=== PATIENT | female | born 1990 | race Caucasian/White ===

== ENCOUNTER 2023-11-09 21:51 | Outpatient (CLI) | payer OTHER, SELFPAY | END 2023-11-09 21:52 | disposition home or self-care (01) | PROVIDERS: Visit Provider Family Medicine | DX: R53.83 Other fatigue (principal); R53.1 Weakness | CPT/HCPCS: A0425; A0427 ==

== ENCOUNTER 2025-01-04 08:38 | Emergency (ER) | payer OTHER, SELFPAY ==
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
--- OUTSIDE RECORDS SUMMARY | 2025-01-04 08:40 | XMS_ITS | Clinical Summary ---
Author Organization [facility] Address [address] [place] [address] Care Team Providers Care School Bus Driver Name Role Phone Valerie Liu APRN, C.N.P. Primary Care Provide r Source Comments Patient records contain information from all sites at [facility]. For routine questions regarding patient records, call [phone] during business hours, M-F 8:00 AM - 5:00 PM Central Time. Record requests for emergency care only can be directed to [phone] at any time.[facility] Allergies Active Allergy Reactions Criticality Noted Date Comments Metoclopramide Other (see comments) 09/10/2022 Metoclopramide-Induc ed Acute Dystonic Reaction Metoclopramide Hcl Seizure 01/14/2023 Metoprolol Hypotension (Reselec t Reaction) 01/14/2023 Penicillins Other (see comments) 03/30/2009 Unknown reaction no longer allergic per patient after recent ER visit Medications * This document contains information received from the source organization and may not represent a complete record from that organization. alcohol swabs pads, medicatedIndication s:Diabetes Mellitus Gestational (HCC) Use as needed for diabetes control 1500 each 3 3 Active blood-glucose meter miscIndications:Jerri betes Mellitus Gestational (HCC) Test as directed for diabetes control. 1 each 3 Active blood glucose ctl high,nml,low solutionIndications :Diabetes Mellitus Gestational (HCC) Glucose control solution provides an easy way to ensure accurate blood glucose testing. 1 each 3 Active Accu-Chek Guide L1-L2 Ctrl Kay solution 3 Active blood sugar diagnostic stripsIndications:D iabetes Mellitus Gestational (HCC),Other Hypoglycemia 1 test 3 (three) times a day as needed (DM2 with reactive hypoglycemia ). 300 strip 3 3 Active LORazepam (ATIVAN) 0.5 mg tabletIndications:B ipolar II Disorder (HCC),Posttraumatic Stress Disorder Prolonged Take 1 tablet (0.5 mg total) by mouth 2 (two) times a day as needed for anxiety. 60 tablet 3 Active ondansetron ODT (ZOFRAN-ODT) 4 mg disintegrating tabletIndications:I njury Brain Traumatic Personal History Dissolve 1 tablet (4 mg total) in the mouth every 8 (eight) hours as needed for nausea or vomiting. 30 tablet 11 3 Active baclofen (LIORESAL) 10 mg tabletIndications:M yalgia Take 0.5-1 tablets (5-10 mg total) by mouth 3 (three) times a day. 40 tablet 4 Active amphetamine-dextroa mphetamine (ADDERALL XR) 30 mg 24 hr capsuleIndications: Attention Deficit Disorder Inattentive Take 1 capsule (30 mg total) by mouth 2 (two) times a day. 60 capsule 12/15/2023 4:21 PM CALL CENTER PROFESSIONAL 4 Active lamoTRIgine (LaMICtaL) 200 mg tabletIndications:B ipolar II Disorder (HCC),Posttraumatic Stress Disorder Prolonged take one tablet by mouth every day 30 tablet 2 4 Active sertraline (ZOLOFT) 50 mg tabletIndications:B ipolar II Disorder (HCC) take one tablet by mouth every day 90 tablet 3 4 Active amoxicillin (AMOXIL) 500 mg capsule Take 1 capsule (500 mg total) by mouth every 8 (eight) hours. 30 capsule 4 Active ondansetron ODT (Zofran-ODT) 4 mg disintegrating tablet Dissolve 1 tablet (4 mg total) in the mouth every 12 (twelve) hours. 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 It appears that she has experienced adverse effects from higher dose beta-raúl therapy. Recommended to decrease metoprolol XL 50 mg to 1 tablet once daily. Bipolar II Disorder 06/10/2017 Assessment & Plan (03/12/2022 3:56 PM CDT): This diagnosis was made many years ago while she was living in [place] apparently, I do not get the sense that she had any recent manic episodes. She may rather have major depressive disorder. She has been on sertraline 200 mg daily for many years. She is not on any other mood stabilizing agents. Today she voiced some suicidal thoughts, but said that she would never hurt herself, she has no plans, and she is taking care of her children. She should be seen in Behavioral Health as soon as possible, and medication adjustments should be considered. Pain Left Upper Quadrant 05/23/2013 Pain Low Back Unspecified Resolved Problems Problem Noted Date Diagnosed Date Resolved Date Loss Weight 12/24/2022 01/12/2023 Lipoma 04/07/2022 01/12/2023 Overview (04/07/2022): Added automatically from request for surgery [id number] Obesity Body Mass Index 30-39.9 Adult 06/26/2021 01/12/2023 Diarrhea 05/31/2021 01/12/2023 Overview (05/31/2021): Added automatically from request for surgery [id number] Encounter For Supervision Of Normal First Unspecified Trimester 01/31/2020 05/27/20 21 Other Immediate Hemorrhage 01/31/2020 01/31/2020 Appendicitis 11/03/2019 11/08/2019 Bite Cat Hand Open Initial Left 03/01/2019 06/06/2019 Abnormal Weight Gain 02/15/2018 021 Depression Major Recurrent Severe 07/23/2017 09/01/2017 Overview (08/22/2017): Depression Major Recurrent Severe Nicotine Dependence Cigarettes In Remission 07/23/2017 11/08/2019 Immunizations Immunization Administration Dates Next Due Anthrax 05/05/2013 H1N1 Nasal 12/20/2009 HepA Adult 09/23/2009,03/27/2009 IPV 05/04/2009 Influenza Split 06/29/2010,09/23/2009 MMR 03/27/2009 Smallpox 05/10/2013 Tdap 06/15/2020,04/22/2013,05/04/2009 TyVi (inj) 05/05/2013 Typhoid, Unspecified 05/04/2009 influenza trivalent vaccine (6 months and older)(PF) 06/28/2011 influenza vaccine quad (FLUZ ONE/FLUARIX) (6 months and older)(PF) 08/07/2020,11/03/2019 Family History Medical History Relation Name Comments Bipolar disorder Father Dad Depression Father Dad PTSD Father Dad History of substance abuse Mother ADD Sister Bio sister Crohn disease Sister Bio sister Anesthesia problems Neg Hx Relation Name Status Comments Father Dad Mother Sister Bio sister Social History Tobacco Use Types Packs/Day Years Used Date Smoking Tobacco: Former Cigarettes 1 12 Smokeless Tobacco: Never Tobacco Cessation:Counseling Given: Not Answered Alcohol Use Standard Drinks/Week Comments No 0 (1 standard drink = 0.6 oz pur e alcohol) Humiliation, Afraid, Rape, and Kick questionnair e Answer Date Recorded Within the last year, have y ou been afraid of your partner or ex-partner? No 03/02/2023 Within the last year, have y ou been humiliated or emotionally abused in other ways by your partner or ex-partner? Patient declined 03/02/2023 Within the last year, have y ou been kicked, hit, slapped, or otherwise physically hurt by your partner or ex-partner? Patient declined 03/02/2023 Within the last year, have y ou been raped or forced to have any kind of sexual activity by your partner or ex-partner? Patient declined 03/02/2023 Social Connection and Isolation Panel [NHANES] A nswer Date Recorded In a typical week, how many times do you talk on the phone with family, friends, or neighbors? Patient declined 03/02/2023 How often do you get togethe r with friends or relatives? Patient declined 03/02/2023 How often do you attend latter day or moravian serv ices? Patient declined 03/02/2023 Do you belong to any clubs o r organizations such as latter day groups, unions, fraternal or athletic groups, or school groups? No 03/02/2023 How often do you attend meet ings of the clubs or organizations you belong to? Patient declined 03/02/2023 Are you , , di vorced, , never , or living with a partner? Patient declined 03/02/2023 AUDIT-C Answer Date Recorded Q1: How often do you have a drink containing alc ohol? Patient declined 03/02/2023 Average Number of Drinks Not on file 023 Frequency of Binge Drinking Not on file 02/16 Overall Financial Resource Strain (CARDIA) Answe r Date Recorded How hard is it for you to pa y for the very basics like food, housing, medical care, and heating? Patient declined 03/02/2023 PHQ-2 Answer Date Recorded PHQ-2 Score 6 02/09/2023 [facility] - Occupational Stress Questionnaire Answer Date Recorded Do you feel stress - tense, restless, nervous, or anxious, or unable to sleep at night because your mind is troubled all the time - these days? Very much 03/02/2023 Exercise Vital Sign Answer Date Recorde d On average, how many days pe r week do you engage in moderate to strenuous exercise (like a brisk walk)? 3 days 03/02/2023 On average, how many minutes do you engage in exercise at this level? 0 min 03/02/2023 Hunger Vital Sign Answer Date Recorded Within the past 12 months, y ou worried that your food would run out before you got the money to buy more. Patient declined Within the past 12 months, t he food you bought just didn't last and you didn't have money to get more. Patient declined PRAPARE - Transportation Answer Date Re corded In the past 12 months, has l ack of transportation kept you from medical appointments or from getting medications? Patient declined 03/02/2023 In the past 12 months, has l ack of transportation kept you from meetings, work, or from getting things needed for daily living? Patient declined 03/02/2023 Housing Stability Vital Sign Answer Luigi e Recorded In the last 12 months, was t here a time when you were not able to pay the mortgage or rent on time? Patient refused 03/02/20 23 In the last 12 months, how many places have you lived? 1 03/02/2023 In the last 12 months, was t here a time when you did not have a steady place to sleep or slept in a alf (including now)? Patient refused 03/02/2023 Depression Answer Date Recor ded PHQ-9 Total Score (max 27) 26 02/09 Nutrition Answer Date Recorded On average, how many serving s of fruits and vegetables do you eat per day (serving size is equal to 1 cup or approximately the size of a tennis ball)? 2-3 03/02/2023 Dental Answer Date Recorded Dental: Regular Dentist No 11/06/19 22 Employment Answer Date Recorded Employment status N/A 03/02/2023 Education Answer Date Recorded What is the highest level of school you have completed or the highest degree you have received? Associate degree: occupational, technical, or vocational program 11/06/2021 Comments Unknown Sex and Gender Information Value Date Recorded Sex Assigned at Female 11/06/2021 12:30 PM CALL CENTER PROFESSIONAL Legal Sex Female 12:50 PM CDT Gender Identity Female 11/06/2021 12:30 PM CALL CENTER PROFESSIONAL Sexual Orientation Straight 11/06/2021 12 :30 PM CALL CENTER PROFESSIONAL Last Filed Vital Signs Vital Sign Reading Time Taken Comments Blood Pressure 123/84 08/21/2024 9:01 AM CALL CENTER PROFESSIONAL Pulse 75 08/21/2024 9:01 AM CALL CENTER PROFESSIONAL Temperature 36.4 C (97.5 F) 08/21/2024 9:01 AM CALL CENTER PROFESSIONAL Respiratory Rate 16 08/21/2024 9:01 AM CALL CENTER PROFESSIONAL Oxygen Saturation 99% 08/21/2024 9:01 AM CALL CENTER PROFESSIONAL Inhaled Oxygen Concentration - - Weight 96 kg (211 lb 10.3 oz) 08/21/2024 9:02 AM CALL CENTER PROFESSIONAL Height 172.7 cm (5' 8) 04/03/2024 2:27 AM CDT Body Mass Index 32.18 04/03/2024 2:27 AM CDT Plan of Treatment Health Maintenance Due Date Last Done Comments Hepatitis B Vaccines (1 of 3 - 19+ 3-dose series) 2007 Pneumococcal vaccine (0-49 years) (1 of 2 - PCV) 2007 IPV Vaccines (2 of 3 - Adult catch-up series) 06/01/2009 05/04/2009 Glucose Monitoring for Gestational Diabetes 10/23/2023 Cervical/Vaginal Cancer Screening 04/19/2024 04/19/2019, 04/19/2019 COVID-19 Vaccine ( - season) 2024 Influenza Vaccine (#1) 2024 , 11/03/2019, 06/28/2011, Additional history exists Depression Screening (Annual PHQ-2) 10/19/2024 Lipid (Cholesterol) Screening 03/12/2027 03/12/2022 DTaP,Tdap,and Td Vaccines (4 - Td or Tdap) 06/15/2030 06/15/2020, 04/22/2013, 05/04/2009 Hepatitis A Vaccines Completed 09/23/2009, 03/27/20 09 Orthopoxvirus Vaccine Completed 05/10/2013 HIV Screening Completed 01/31/2020 Hepatitis C Screening Completed 05/27/2021 HPV Vaccines Aged Out No longer eligi ble based on patient's age to complete this topic Procedures Procedure Name Priority Date/Time Associated Diagnosis Comments CHOLESTEROL, TOTAL, S Routine 03/12/2022 3:59 PM CDT Family History Coronary Artery Disease HCV AB SCRN W/REFLEX TO HCV PCR, S Routine 05/27/2021 10:16 AM CDT Pain Periumbilical Diarrhea HIV-1/-2 AG AND AB SCRN, PLASMA Routine 01/31/2020 3:48 PM CDT Encounter For Supervision Of Normal Unspecified Trimester PATHOLOGY LIQUOR GALLERY OPERATOR CYTOLOGY Routine 04/19/2019 12:00 AM CDT Pap Smear Examination from Last 3 Months or Most Recently Relevant to Health Maintenance Results * Cholesterol, Total (03/12/2022 3:59 PM CDT) Cholesterol, Total 142 mg/dL 03/12/2022 4:24 PM CDT RDW Comment: ----REFERENCE VALUE---- Desirable: < 200 Borderline high: 200 - 239 High: > or = 240 Blood (Blood, Venous) 03/12/2022 3:59 PM CDT 03/12/2022 4:03 PM CDT us Franky Carbone M.D. LAB BLOOD ADD-ON Final Resul t [facility] [address] [place] [address], [place] RDWG [facility] [place] [address] [place] [address] * HCV Ab Scrn w/Reflex to HCV PCR, Serum (05/27/2021 10:16 AM CDT) HCV Ab Screen, S Negative Negative 05/27/20 3:18 PM CDT ECLR Comment: Biotin has been identified by the retail clerk as a potential interfering substance. Higher concentrations of biotin may be found in multivitamins, hair/nail supplements, and workout supplements. If the result does not match clinical observations, repeat testing after patient refrains from the use of supplements for at least 12 hours. Blood (Blood, Venous) 05/27/2021 10:16 AM CDT 05/27/2021 2:38 PM CDT Narrative [facility] - 05/27/2021 3:18 PM CDT Specimen Information: Specimen ID: [id number] Specimen Type: Blood Specimen Collection Start Date: 05/27/2021 10:16 AM Specimen Received Date: 05/27/2021 2:38 PM Specimen ID: [id number] Specimen Type: Blood Specimen Collection Start Date: 05/27/2021 10:16 AM Specimen Received Date: 05/27/2021 2:38 PM Trey Poe M.D., Ph.D. LAB MICROBIOLOGY - BLOO D ORDERABLES Final Result [facility] [address] [place] [address], [place] ECLR [facility] [place] [address] * HIV-1/-2 Ag and Ab Scrn, Plasma (01/31/2020 3:48 PM CDT) HIV Ag/Ab Scrn, P Negative Negative 02/01/2020 12:25 PM CDT ECLR Comment: Negative result does not rule out HIV infection. If exposure to HIV infection occurred <14 days ago, contact the laboratory to request addition of HIV-1 RNA detection / quantification test. HIV-1 p24 Ag Scrn, P Negative Negative 02/01/2020 12:25 PM CDT ECLR Comment: Negative result does not rule out HIV infection. If exposure to HIV infection occurred <14 days ago, contact the laboratory to request addition of HIV-1 RNA detection / quantification test. HIV-1 Ab Scrn, P Negative Negative 02/01/2020 12:25 PM CDT ECLR Comment: Negative result does not rule out HIV infection. If exposure to HIV infection occurred <14 days ago, contact the laboratory to request addition of HIV-1 RNA detection / quantification test. HIV-2 Ab Scrn, P Negative Negative 02/01/2020 12:25 PM CDT ECLR Comment: Negative result does not rule out HIV infection. If exposure to HIV infection occurred <14 days ago, contact the laboratory to request addition of HIV-1 RNA detection / quantification test. Blood (Blood, Venous) 01/31/2020 3:48 PM CDT 01/31/2020 9:32 PM CDT us Skyler Shine APRNNJaya LAB MICROBIOLOGY - BLO OD ORDERABLES Final Result [facility] [address] [place] [address], [place] ECLR [facility] [place] [address] * Pathology LIQUOR GALLERY OPERATOR Cytology (04/19/2019 12:00 AM CDT) PATHOLOGY LIQUOR GALLERY OPERATOR CYTOLOGY Patient Name: AWAIS PADILLA MR#: [id number] Submitting Physician: KELTON MENCHACA NP [id number] Specimen #[id number] Performing Lab: [place] [address] CLINICAL HISTORY: Last menstrual period: Status: Pap Type: Routine Pap Clinical History/Status (Select all that apply): None Ancillary Testing: HPV with Genotyping, PCR, ThinPrep (order separately in [facility] [id number]) Source: ThinPrep cervical/endocervi eliane specimen [ThinPrep vial] Diagnosis Specimen Adequacy: Satisfactory for interpretation : endocervical or transformation zone component present. General Categorization: Negative for intraepithelial lesion or malignancy. Comment HPV with Genotyping, PCR, ThinPrep, testing performed by [facility] HPV High Risk type 16, PCR NEGATIVE HPV High Risk type 18, PCR NEGATIVE HPV other High Risk types, PCR NEGATIVE The PAP smear is not a diagnostic procedure and should not be used as the sole means to detect cervical cancer. It is only a screening procedure to aid in the detection of cervical cancer and its precursors. Both false-negative and false-positive results have been experienced. [facility] Thin Prep Vial (Cervix/Endocervi x) 04/19/2019 04/20/2019 Kelton Menchaca APRN C.N.PAleksandra, [facility] PAP COPAT H ORDERABLES Final Result VIANCA PADILLA [address] [place] [address], [place] from Last 3 Months or Most Recently Relevant to Health Maintenance Insurance [facility] TPL/MVA Advance Directives For more information, please contact: [phone] * Full Code (Latest Code Status on File) Date Activated Date Inactivated Comments 04/10/2022 1:43 PM 04/10/2022 7:24 PM Question Answer Comments Full Code: Discussed * Full Code Date Activated Date Inactivated Comments 07/03/2021 1:53 PM 07/03/2021 4:52 PM Question Answer Comments Full Code: Discussed * Full Code Date Activated Date Inactivated Comments 07/03/2021 12:26 PM 07/03/2021 1:53 PM Question Answer Comments Full Code: Discussed * Full Code Date Activated Date Inactivated Comments 11/04/2019 4:16 PM 11/05/2019 2:09 PM Question Answer Comments Full Code: Discussed * Full Code Date Activated Date Inactivated Comments 11/03/2019 11:09 PM 11/04/2019 4:16 PM Question Answer Comments Full Code: Discussed Care Teams School Bus Driver Relationship Specialty Start Date End Date Valerie Liu APRN, C.N.P. [address] [place] [address] PCP - General 03/04/24
--- OUTSIDE RECORDS SUMMARY | 2025-01-04 08:40 | XMS_ITS | Clinical Summary ---
Author Organization [facility] Address [address] [place] [id number] Care Team Providers Care Drapery Cutter Machine Name Role Phone None Primary Care Provider Unavailabl e Allergies No known active allergies Medications sertraline (ZOLOFT) 100 mg tabletIndicati ons:anxiety with depression Take 200 mg by mouth once daily. Indications: anxiousness associated with depression Active hydrOXYzine HCL (ATARAX) 50 mg tabletIndicati ons:anxiety Take 50 mg by mouth once daily. Indications: anxious Active famotidine (PEPCID) 20 mg tablet Take 20 mg by mouth 2 times daily. Active acetaminophen (TYLENOL EXTRA STRGTH) 500 mg tabletIndicati ons:Vaginal delivery (HC) Take 2 tablets by mouth every 6 hours. Max acetaminophen dose: 4000mg in 24 hrs. 60 tablet 1 0 Active glycerin-witch Pablito (TUCKS) pad Apply 1 Applicator topically to affected area(s) every hour while awake as needed. 0 0 Active ibuprofen (ADVIL; MOTRIN) 600 mg tabletIndicati ons:Vaginal delivery (HC) Take 1 tablet by mouth every 6 hours. Maximum of 3200 mg in 24 hours. 30 tablet 1 0 Active lanolin (LANSINOH) topicalIndicat ions:Vaginal delivery (HC) Apply peasized amount to entire nipple area after each feeding and leave on, no need to wash off before . 0 0 Active oxyCODONE (ROXICODONE) 5 mg immediate release tabletIndicati ons:Vaginal delivery (HC) Take 1 tablet by mouth every 4 hours if needed for Pain (For moderate to severe pain not controlled with ibuprofen and acetaminophen.) 10 tablet 0 Active docusate (COLACE) 100 mg capsuleIndicat ions:Vaginal delivery (HC) Take 1 capsule by mouth 2 times daily if needed for Constipation. 30 capsule 0 Active Active Problems Problem Noted Date Diagnosed Date Vaginal delivery 09/01/2020 Encounters Date Type Department Care Team Description 12/29/2024 Telephone [facility] [address] [facility] [address] [place] [address] Bree Hassan, PhD, LP 11/23/2024 Transcribe Orders [facility] [address] [place] [address] [place] MD from Last 3 Months Social History Tobacco Use Types Packs/Day Years Used Date Smoking Tobacco: Former Smokeless Tobacco: Former Alcohol Use Standard Drinks/Week Comments Not Currently 0 (1 standard drink = 0.6 oz pur e alcohol) Comments No Sex and Gender Information Value Date Recorded Sex Assigned at Not on file Legal Sex Female 8:20 PM PORT TRAFFIC MANAGER Gender Identity Not on file Sexual Orientation Not on file Obstetrics History Para Term AB IAB SAB Ectopic Multiple Livin g Live Births 7 4 4 3 3 4 4 Date Outcome GA Total Labor Labor/2nd/3rd Weight Sex Type Anes PTL Arlene A1 A5 Name Clin SAB SAB SAB 2013 Term Livin g 2014 Term Livin g 2016 Term Livin g 2019 Term 38w 4d 0h 07m 3.9 kg (8 lb 9.6 oz) M Vag Epidu ral,I V Meds N Livin g 8 9 SORENS EN,BB FIFI Pearson Complications:None Delivery Location:[facility]) Last Filed Vital Signs Vital Sign Reading Time Taken Comments Blood Pressure 130/82 09/03/2020 7:00 AM PORT TRAFFIC MANAGER Pulse 88 09/03/2020 7:00 AM PORT TRAFFIC MANAGER Temperature 36.8 C (98.2 F) 09/03/2020 7:00 AM PORT TRAFFIC MANAGER Respiratory Rate 18 09/03/2020 7:00 AM PORT TRAFFIC MANAGER Oxygen Saturation 96% 09/01/2020 3:49 AM PORT TRAFFIC MANAGER Inhaled Oxygen Concentration - - Weight 121.6 kg (268 lb) 08/31/2020 10:13 PM PORT TRAFFIC MANAGER Height 172.7 cm (5' 8) 08/31/2020 10:13 PM PORT TRAFFIC MANAGER Body Mass Index 40.75 08/31/2020 10:13 PM PORT TRAFFIC MANAGER Plan of Treatment Upcoming Encounters Date Type Department Care Team (Late st Contact Info) Description 05/22/2025 12:30 PM CDT Office Visit [facility] [address] [place] [address] Bree Hassan, PhD, LP [address] [place] [address] Health Maintenance Due Date Last Done Comments Tdap 1999 Depression screening for age 12+ 2000 HIV for age 15-65 2003 BMI (ht and wt on same day) for age 18+ 2006 Hepatitis C screening for ag e 18-79 2006 Tetanus booster 2008 Pap test for age 21-65 2009 COVID-19 vaccine series ( - 2023-25 season) 2024 Influenza Vaccine (#1) 2024 Pneumococcal series for age 6-49 Aged Out No longer eligible based on patient's age to complete this topic Insurance MEDICAID [employer] Advance Directives * Full Code (Latest Code Status on File) Date Activated Date Inactivated Comments 08/31/2020 9:53 PM 09/03/2020 3:09 PM Question Answer Comments Code Status Discussion: Discussed Care Teams Drapery Cutter Machine Relationship Specialty Start Date End Date None . PCP - General 12/05/24
--- OUTSIDE RECORDS SUMMARY | 2025-01-04 08:41 | XMS_ITS | Clinical Summary ---
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 Role Phone None, Pcp Primary Care Provider Unavailabl e Allergies Active Allergy Reactions Criticality Noted Date Comments Metoclopramide 08/01/2024 Metoprolol 08/01/2024 Medications ibuprofen (ADVIL) 600 MG tablet Take 1 tablet (600 mg total) by mouth every 6 hours as needed Active Social History Tobacco Use Types Packs/Day Years Used Date Smoking Tobacco: Never Assessed Comments Unknown Sex and Gender Information Value Date Recorded Sex Assigned at Not on file Legal Sex Female 9:18 AM CDT Gender Identity Not on file Sexual Orientation Not on file Last Filed Vital Signs Vital Sign Reading Time Taken Comments Blood Pressure 110/70 08/01/2024 12:48 PM CDT Pulse 70 08/01/2024 12:48 PM CDT Temperature 36.9 C (98.5 F) 08/01/2024 12:48 PM CDT Respiratory Rate - - Oxygen Saturation - - Inhaled Oxygen Concentration - - Weight 91.1 kg (200 lb 14.4 oz) 024 12:48 PM CDT Height - - Body Mass Index - - Plan of Treatment Health Maintenance Due Date Last Done Comments Pap Smear 04/19/2022 04/19/2019, 04/19/2019 COVID-19 Vaccine ( season) 2024 Influenza Vaccine (#1) 2024 0, 11/03/2019, 06/28/2011, Additional history exists DTaP,Tdap,and Td Vaccines (4 - Td or Tdap) 06/15/2030 06/15/2020, 04/22/2013, 05/04/2009 HPV Vaccines Aged Out No longer eligi ble based on patient's age to complete this topic Pneumococcal Vaccine: Pediatrics (0 to 5 Years) and At-Risk Patients (6 to 49 Years) Aged Out No longer eligible based on patient's age to complete this topic Insurance [facility] [employer] Care Teams Stem Roller Operator Relationship Specialty Start Date End Date None, Pcp [address] [place], [place] [address] [place] [address] 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
[2025-01-04 08:57] VITALS: BP 138/91; PULSE 90; RESP 18; TEMP 37.2; O2SAT 97; BMI 33.7
--- NOTE | 2025-01-04 09:20 | ED.GENADULT ---
HPI - General Adult General Chief complaint: Back Injury/Pain Stated complaint: Flu symptoms, back pain Time Seen by Provider: 01/04/25 08:47 History of Present Illness HPI narrative: Patient is a 34 year white female disabled who is here with her caregiver. Patient has had a couple head injuries. Although she appears mentally status intact. She reports she has had a cough the last few days and cough so hard that she threw up once and she thinks she hurt her back. Pain on the left mid low back left posterior superior iliac spine area. Does not really describe radicular symptoms. Has had no loss control of bowel or bladder. The patient has had no fevers chills perineal numbness. Patient was diagnosed with some type of arachnoid cyst, although she does not know exactly what level. Patient has been on gabapentin. Did well with PT and OT for her spine issues. Related Data Home Medications ?Medication ?Instructions ?Recorded ?Confirmed gabapentin 400 mg tablet 400 mg PO TID 01/04/25 01/04/25 Previous Rx's ?Medication ?Instructions ?Recorded benzonatate 100 mg capsule 100 mg PO TID PRN cough #14 caps 01/04/25 cyclobenzaprine 10 mg tablet 10 mg PO TID PRN muscle spasm #14 01/04/25 tabs ketorolac 10 mg tablet 10 mg PO Q8H PRN pain 3 days #10 01/04/25 tabs prednisone 20 mg tablet 20 mg PO BID 5 days #10 tabs 01/04/25 Allergies Allergy/AdvReac Type Severity Reaction Status Date / Time No Known Drug Allergies Allergy Verified 01/04/25 09:04 Review of Systems Status of ROS: Reports: 6 or more systems reviewed and unremarkable except as noted in History and below Exam Narrative: Exam Narrative: Objective: Patient's temp is 99? vital signs otherwise unremarkable in general she is in no marked distress but does feel uncomfortable when she moves with her low back She is able to sit up, her lower extremities show normal strength sensation, negative straight leg raise bilaterally. She has mildly palpable paravertebral muscle tenderness in the low back. No redness or warmth erythema. Const: Vital Signs, click to edit/add: Vital Signs - 24 hr 01/04/25 08:57 01/04/25 11:07 01/04/25 11:15 Temperature 99.0 F Pulse Rate 87 85 Pulse Rate [Right Pulse Oximeter] 90 Respiratory Rate 18 Blood Pressure [Ri t Upper Arm] 138/91 H Pulse Oximetry 97 96 97 Oxygen Delivery Me thod Room Air Course Vital Signs Vital signs: Initial Vital Signs Temperature 99.0 F 01/04/25 08:57 Temperature Source Temporal Artery Scan 01/04/25 08:57 Pulse Rate 90 01/04/25 08:57 Pulse Rhythm Regular 01/04/25 08:57 Pulse Strength 3+ Normal 01/04/25 08:57 Respiratory Rate 18 01/04/25 08:57 Blood Pressure 138/91 H 01/04/25 08:57 Blood Pressure Mean 106 H 01/04/25 08:57 Blood Pressure Position Sitting 01/04/25 08:57 Pulse Oximetry 97 01/04/25 08:57 Oxygen Delivery Method Room Air 01/04/25 08:57 Vital Signs Temperature 99.0 F 01/04/25 08:57 Pulse Rate 90 01/04/25 08:57 Respiratory Rate 18 01/04/25 08:57 Blood Pressure 138/91 H 01/04/25 08:57 Pulse Oximetry 97 01/04/25 08:57 Oxygen Delivery Method Room Air 01/04/25 08:57 Temperature 99.0 F 01/04/25 08:57 Pulse Rate 85 01/04/25 11:15 Respiratory Rate 18 01/04/25 08:57 Blood Pressure 138/91 H 01/04/25 08:57 Pulse Oximetry 97 01/04/25 11:15 Oxygen Delivery Method Room Air 01/04/25 08:57 Medications Administered Medications: Discontinued Medications Generic Name Dose Route Start Last Admin Trade Name Koffiq PRN Reason Stop Dose Admin Sodium Chloride 500 mls @ 500 mls/hr 01/04/25 08:47 01/04/25 10:47 0.9 % Sodium Chloride 500 Ml IV 01/04/25 09:46 Infused .Q1H ONE Infusion Ketorolac Tromethamine 30 mg 01/04/25 09:17 01/04/25 10:01 Ketorolac 30 Mg/Ml Inj IVP 01/04/25 09:18 30 mg ONCE ONE Administration Lorazepam 0.5 mg 01/04/25 09:17 01/04/25 09:46 Lorazepam 2 Mg/Ml Inj IVP 01/04/25 09:18 Not Given ONCE ONE Lorazepam 1 mg 01/04/25 09:17 01/04/25 10:02 Lorazepam 2 Mg/Ml Inj IVP 01/04/25 09:18 1 mg ONCE ONE Administration Methylprednisolone Sodium Succinate 125 mg 01/04/25 09:17 01/04/25 10:01 Methylprednisolone Sod Succ 62.5 Mg/Ml (125) IVP 01/04/25 09:18 125 mg ONCE ONE Administration Morphine Sulfate 4 mg 01/04/25 10:45 01/04/25 10:58 Morphine 4 Mg/Ml Inj IVP 01/04/25 10:46 4 mg ONCE ONE Administration Medical Decision Making MDM Narrative Medical decision making narrative: [age] year white female with history of couple of head injuries on which she is disabled, with low back pain that is chronic, acute exacerbation likely due to the cough. Likely musculoskeletal in the low back. Patient does not really demonstrate radicular symptoms or cauda equinus syndrome symptoms. At this point I think it be reasonable to give her IV fluid, give her pain control in the form of Toradol 30 mg IV and Ativan 1 mg IM mg IV, will also give her Solu-Medrol 125 IV. Will also for completeness check a urinalysis and lab studies, because of her cough will check viral studies. Disposition pending findings above. Patient may benefit from with some anti-inflammatory medicine and steroids at home. Will need follow up with regular doctor next few days. Will see how she responds here. Addendum 11:14 a.m. the patient got an additional morphine 4 mg IV, she feels little bit better with her back. She is positive for influenza B. Recommend observation fluids medicines as prescribed. Follow up with regular doctor in a couple of days, light activity recommended. She was comfortable this plan. Will also fax in some [employer] for her. Lab Data Labs: Lab Results 01/04/25 01/04/25 Range/Units 09:28 09:35 WBC 4.10 L (4.50-11.00) K/uL RBC 4.77 (4.00-5.20) m/uL Hgb 14.7 (12.0-16.0) gm/dL Hct 43.0 (33.0-51.0) % MCV 90 (80-100) fL MCH 31 (26-34) pg MCHC 34 (32-36) gm/dL RDW Coeff of Danyel 11.8 (11.5-15.5) % Plt Count 145 (140-440) K/uL Neut % (Auto) 74.5 H (42.0-72.0) % Lymph % (Auto) 15.6 L (20-44) % Braxton % (Auto) 9.5 (0.0-11.0) % Eos % (Auto) 0.0 (0.0-7.0) % Baso % (Auto) 0.2 (0.0-3.0) % Neut # (Auto) 3.10 (1.7-7.0) K/uL Lymph # (Auto) 0.60 L (0.90-2.90) K/uL Braxton # (Auto) 0.40 (0.00-0.90) K/UL Eos # (Auto) 0.00 (0.00-0.50) K/uL Baso # (Auto) 0.00 (0.00-0.30) K/uL Abs Immat Gran (auto) 0.00 (0.00-0.30) K/uL Imm/Tot Granulo (auto) 0.2 % Sodium 137 (135-149) mmol/L Potassium 3.4 L (3.6-5.1) mmol/L Chloride 101 (96-114) mmol/L Carbon Dioxide 27 (20-32) mmol/L Anion Gap 9 (7-15) mEq/L BUN 9 (5-24) mg/dL Creatinine 0.8 (0.5-1.5) mg/dL Estimated Creat Clear 94.54 Estimated GFR 98 ml/min Glucose 97 (60-115) mg/dL Calcium 8.7 (8.4-10.6) mg/dL C-Reactive Protein 0.7 (0.5-1.0) mg/dL Urine Color Yellow (Yellow) Urine Appearance Clear (Clear) Urine pH 6.5 (5.0-8.5) Ur Specific [place] 1.010 (1.000-1.030) Urine Protein Negative (Negative) Urine Glucose (UA) Negative (Negative) Urine Ketones Negative (Negative) Urine Blood Negative (Negative) Urine Nitrite Negative (Negative) Urine Bilirubin Negative (Negative) Urine Urobilinogen 0.2 (0.2-1.0) Ur Leukocyte Esterase Negative (Negative) Urine RBC 0-2 (0-2) Urine WBC 0-2 (0-5) Ur Squamous Epith Cells Moderate A (None-Few) Urine Bacteria Moderate A (None) SARS-CoV-2 (PCR) Negative SARS-CoV-2 (Negative) Influenza Type A (PCR) Negative PCR FLU A (Negative) Influenza Type B (PCR) POSITIVE PCR FLU B A (Negative) RSV (PCR) Negative PCR RSV (Negative) Discharge Plan Discharge Clinical Impression: Acute cough, Chronic low back pain, Influenza B Patient Disposition: Home w/ Parent or Adult Condition: Stable Additional Instructions: Light activity, ice to the back as tolerated, medications as prescribed. Follow up with regular doctor the next 48 hours, return to ED as needed. Activity Level: Light activity Discharge Diet: Regular Prescriptions: New ketorolac 10 mg tablet 10 mg PO Q8H PRN (Reason: pain) 3 Days Qty: 10 0RF cyclobenzaprine 10 mg tablet 10 mg PO TID PRN (Reason: muscle spasm) Qty: 14 0RF prednisone 20 mg tablet 20 mg PO BID 5 Days Qty: 10 0RF benzonatate 100 mg capsule 100 mg PO TID PRN (Reason: cough) Qty: 14 0RF No Action gabapentin 400 mg tablet 400 mg PO TID Follow Up/Referrals: Provider,Not a Local [Primary Care Provider] - Stand Alone Forms: [facility] [employer] Info Instructions
[2025-01-04 09:38] LABS: Appearance Urine Clear (Clear); Bilirubin Urine Negative (Negative); Blood Urine Negative (Negative); Color Urine Yellow (Yellow); Glucose Urine Negative (Negative); Ketones Urine Negative (Negative); Leukocyte Esterase Urine Negative (Negative); Nitrite Urine Negative (Negative); Protein Urine Negative (Negative); Urobilinogen Urine 0.2 (0.2-1.0); pH Urine 6.5 (5.0-8.5)
[2025-01-04 09:52] LABS: Basophils Percent Auto 0.2 % (0.0-3.0); Hemoglobin* 14.7 gm/dL (12.0-16.0); Immature Granulocytes Pct Auto 0.2 %; Lymphocytes Percent Auto 15.6 % (20-44); Mean Corpuscular HGB Conc 34 gm/dL (32-36); Mean Corpuscular Hemoglobin 31 pg (26-34); Mean Corpuscular Volume 90 fL (80-100); Monocytes Percent Auto 9.5 % (0.0-11.0); Neutrophils Percent Auto 74.5 % (42.0-72.0); Platelet Count* 145 K/uL (140-440); RDW Coefficient of Variation % 11.8 % (11.5-15.5); Red Blood Count 4.77 m/uL (4.00-5.20)
[2025-01-04 09:54] LABS: Bacteria Urine Moderate; RBC Urine 0-2 (0-2); Squamous Epithelial Cell Urine Moderate (None-Few); WBC Urine 0-2 (0-5)
[2025-01-04] MEDS: 0.9 % SODIUM CHLORIDE 500 ML 500 ML IV (10:01)
[2025-01-04] MEDS: KETOROLAC 30 MG/ML inj IVP (10:01)
[2025-01-04] MEDS: METHYLPREDNISOLONE SOD SUCC 62.5 MG/ML (125) 125 MG IVP (10:01)
[2025-01-04] MEDS: LORazepam 2 MG/ML inj 1 MG IVP (10:02)
[2025-01-04 10:05] LABS: Chloride* 101 mmol/L (96-114); Potassium* 3.4 mmol/L (3.6-5.1); Slide Review Reflex No; Sodium* 137 mmol/L (135-149)
[2025-01-04 10:09] LABS: Anion Gap 9 mEq/L (7-15); Blood Urea Nitrogen* 9 mg/dL (5-24); Calcium* 8.7 mg/dL (8.4-10.6); Carbon Dioxide* 27 mmol/L (20-32); Creatinine* 0.8 mg/dL (0.5-1.5); Est. Creatinine Clearance* 94.54; Estimated Glomerular Filt Rate 98 ml/min; Glucose* 97 mg/dL (60-115)
[2025-01-04 10:11] LABS: C Reactive Protein* 0.7 mg/dL (0.5-1.0)
[2025-01-04] MEDS: MORPHINE 4 MG/ML INJ IVP (10:58)
[2025-01-04 10:59] LABS: PCR FLU A Negative PCR FLU A (Negative); PCR FLU B POSITIVE PCR FLU B (Negative); PCR RSV Negative PCR RSV (Negative); SARS PCR* Negative SARS-CoV-2 (Negative)
[2025-01-04 11:07] VITALS: PULSE 87; O2SAT 96
[2025-01-04 11:15] VITALS: PULSE 85; O2SAT 97
== END 2025-01-04 11:33 | disposition home or self-care (01) ==
PROVIDERS: Emergency Provider Family Medicine
DX: J10.1 Influenza due to other identified influenza virus with other respiratory manifestations (principal); R05.1 Acute cough; M54.50 Low back pain, unspecified
CPT/HCPCS: 36415; 80048; 81001; 85025; 86140; 87086; 87631; 94761; 96374; 96375; 99284; J1885; J2060; J2270; J2919; J7030

== ENCOUNTER 2025-01-11 08:36 | Emergency (ER) | payer OTHER, SELFPAY ==
[2025-01-11 08:39] VITALS: BP 128/92; PULSE 90; RESP 18; TEMP 36.6; O2SAT 94
--- NOTE | 2025-01-11 09:04 | ED.GENADULT ---
HPI - General Adult General Chief complaint: Cough Stated complaint: Shortness of breath, chest/back pain Time Seen by Provider: 01/11/25 08:42 History of Present Illness HPI narrative: Patient is a 34-year-old white female who is [facility] connected who has got some disability from head injury. She had influenza B last week. She feels like she has not ate or drank much over the last few days. She has had a cough that is been a grayish yellow sputum. She had some a little bit of blood tinged sputum couple days ago and that is gone. She has complaints of shortness of breath with activity but her O2 sat is 94% here. Does not have rigors or chills. Has not had any cheek and tear chest pain. She feels generally weak however as she has been sick for the week. She went to the [place] had a ruptured eardrum was put on steroid drops. Related Data Home Medications ?Medication ?Instructions ?Recorded ?Confirmed gabapentin 400 mg tablet 400 mg PO TID 01/04/25 01/11/25 Previous Rx's ?Medication ?Instructions ?Recorded benzonatate 100 mg capsule 100 mg PO TID PRN cough #14 caps 01/04/25 cyclobenzaprine 10 mg tablet 10 mg PO TID PRN muscle spasm #14 01/04/25 tabs azithromycin 250 mg tablet See Rx Instructions PO .COMPLEX #6 01/11/25 (Zithromax Z-Ronnie) tabs Allergies Allergy/AdvReac Type Severity Reaction Status Date / Time No Known Drug Allergies Allergy Verified 01/11/25 09:48 Review of Systems Status of ROS: Reports: 6 or more systems reviewed and unremarkable except as noted in History and below Exam Narrative: Exam Narrative: Objective: In general patient is no apparent distress noncyanotic talks in even unlabored sentences O2 sat is 94% on room air Afebrile Alert orient x3 no scleral icterus neck is supple chest clear no rales or wheezing heart rhythm without murmur abdomen shows elevated BMI nontender Extremities are no edema neurologic nonfocal. Const: Vital Signs, click to edit/add: Vital Signs - 24 hr 01/11/25 08:39 01/11/25 10:08 Temperature 97.9 F Pulse Rate [Pulse Oximeter] 90 Respiratory Rate 18 Blood Pressure [Ri ght Upper Arm] 128/92 H 129/85 Pulse Oximetry 94 Oxygen Delivery Me thod Room Air Course Vital Signs Vital signs: Initial Vital Signs Temperature 97.9 F 01/11/25 08:39 Temperature Source Temporal Artery Scan 01/11/25 08:39 Pulse Rate 90 01/11/25 08:39 Respiratory Rate 18 01/11/25 08:39 Blood Pressure 128/92 H 01/11/25 08:39 Blood Pressure Mean 104 01/11/25 08:39 Blood Pressure Position Sitting 01/11/25 08:39 Pulse Oximetry 94 01/11/25 08:39 Oxygen Delivery Method Room Air 01/11/25 08:39 Vital Signs Temperature 97.9 F 01/11/25 08:39 Pulse Rate 90 01/11/25 08:39 Respiratory Rate 18 01/11/25 08:39 Blood Pressure 128/92 H 01/11/25 08:39 Pulse Oximetry 94 01/11/25 08:39 Oxygen Delivery Method Room Air 01/11/25 08:39 Temperature 97.9 F 01/11/25 08:39 Pulse Rate 90 01/11/25 08:39 Respiratory Rate 18 01/11/25 08:39 Blood Pressure 129/85 01/11/25 10:08 Pulse Oximetry 94 01/11/25 08:39 Oxygen Delivery Method Room Air 01/11/25 08:39 Medications Administered Medications: Discontinued Medications Generic Name Dose Route Start Last Admin Trade Name Freq PRN Reason Stop Dose Admin Sodium Chloride 1,000 mls @ 6,000 mls/hr 01/11/25 09:15 01/11/25 10:05 0.9 % Sodium Chloride 1000 Ml IV 01/11/25 09:24 Infused .Q10M MOLLY Infusion Ceftriaxone Sodium 1 gm/ 100 mls @ 200 mls/hr 01/11/25 10:01 01/11/25 10:06 Sodium Chloride IVPB 01/11/25 10:02 200 mls/hr ONCE ONE Administration Medical Decision Making [facility] Narrative Medical decision making narrative: [age] year white female disabled with history of head injury with productive cough following influenza B. She had some blood-tinged sputum as well. I think given her situation a CT scan of her chest with IV contrast to rule out PE rule out pneumonia would be appropriate. Will check a test, laboratory studies, IV fluid be given. Disposition pending findings above. Addendum 10:03 a.m. patient has slightly elevated CRP, has CT scan evidence of no pulmonary embolism but lower lobe pneumonia. Patient will be started on Rocephin 1 g IV and will be given Zithromax in a Z-Ronnie. Light activity recommended, diet as tolerated. Follow up with regular doctor in the next 2-3 days. She she was comfortable this will follow up as directed. Her laboratory studies look reassuring, with exception of calcium just slightly low and potassium on the low normal range as well. Lab Data Labs: Lab Results 01/11/25 01/11/25 Range/Units 09:15 10:16 WBC 6.21 (4.50-11.00) K/uL RBC 4.19 (4.00-5.20) m/uL Hgb 12.8 (12.0-16.0) gm/dL Hct 36.8 (33.0-51.0) % MCV 88 (80-100) fL MCH 31 (26-34) pg MCHC 35 (32-36) gm/dL RDW Coeff of Danyel 11.4 L (11.5-15.5) % Plt Count 146 (140-440) K/uL Neut % (Auto) 70.3 (42.0-72.0) % Lymph % (Auto) 20.8 (20-44) % Cook % (Auto) 7.7 (0.0-11.0) % Eos % (Auto) 0.5 (0.0-7.0) % Baso % (Auto) 0.2 (0.0-3.0) % Neut # (Auto) 4.37 (1.7-7.0) K/uL Lymph # (Auto) 1.29 (0.90-2.90) K/uL Cook # (Auto) 0.50 (0.00-0.90) K/UL Eos # (Auto) 0.03 (0.00-0.50) K/uL Baso # (Auto) 0.01 (0.00-0.30) K/uL Abs Immat Gran (auto) 0.03 (0.00-0.30) K/uL Imm/Tot Granulo (auto) 0.5 % Sodium 138 (135-149) mmol/L Potassium 3.3 L (3.6-5.1) mmol/L Chloride 101 (96-114) mmol/L Carbon Dioxide 30 (20-32) mmol/L Anion Gap 7 (7-15) mEq/L BUN 6 (5-24) mg/dL Creatinine 0.6 (0.5-1.5) mg/dL Estimated GFR 119 ml/min Glucose 112 (60-115) mg/dL Calcium 7.9 L (8.4-10.6) mg/dL C-Reactive Protein 4.1 H (0.5-1.0) mg/dL HCG, Qual Negative (Negative) Discharge Plan Discharge Clinical Impression: Acute cough, Influenza B, Pneumonia Patient Disposition: Home w/ Parent or Adult Condition: Stable Additional Instructions: Rest, fluids, will take a Zithromax pack start that today. Follow-up with the regular doctor next few days. Eat as tolerated. Activity Level: Light activity Discharge Diet: Regular Prescriptions: New azithromycin [Zithromax Z-Ronnie] 250 mg tablet See Rx Instructions .ROUTE .COMPLEX Qty: 6 0RF Rx Instructions: For 250 mg dose pack: take 500 mg today (day 1), then 250 mg for 4 days (days 2-5) No Action gabapentin 400 mg tablet 400 mg PO TID cyclobenzaprine 10 mg tablet 10 mg PO TID PRN (Reason: muscle spasm) Qty: 14 0RF benzonatate 100 mg capsule 100 mg PO TID PRN (Reason: cough) Qty: 14 0RF Follow Up/Referrals: Provider,Not a Local [Primary Care Provider] - Stand Alone Forms: MyHealth Info Instructions
--- NOTE | 2025-01-11 09:07 | CRLHL7_ITS ---
For Patients: As a result of the Century Cures Act, medical imaging exams and procedure reports are released immediately into your electronic medical record. You may view this report before your referring provider. If you have questions, please contact your health care provider. INDICATION: Shortness of breath. Hemoptysis. COMPARISON: None available. TECHNIQUE: CT pulmonary angiography with 95 cc of Isovue 370 intravenous contrast. Reconstructed multiplanar MIP series were done. Please note that all CT scans at this facility use dose modulation, iterative reconstruction, and/or weight-based dosing when appropriate to reduce radiation dose to as low as reasonably achievable. FINDINGS: THORAX Pulmonary Arterial Vasculature: Opacification of the pulmonary arterial tree is adequate for assessment of pulmonary embolism. No intraluminal pulmonary arterial filling defect is identified to indicate a pulmonary embolism. Visualized Lower Neck: No lower cervical adenopathy. Lungs: Dependent multisegmental (posterior and lateral segment) right lower lobe consolidation consistent with pneumonia. Differential diagnostic considerations include aspiration pneumonitis given the distribution of these findings. Note is otherwise made of bilateral lower lobe dependent hypoventilatory changes. Pleura: No pleural effusion. No pneumothorax. Mediastinum: Thoracic aorta and pulmonary trunk are normal in caliber. Heart and pericardium are without significant findings. Trachea and esophagus are normal in appearance. No mediastinal lymphadenopathy. ABDOMEN Visualized Upper Abdomen: No significant findings. SKELETON AND BODY WALL No acute or significant incidental findings. IMPRESSION: 1. No evidence of pulmonary embolism. 2. Dependent multisegmental (posterior and lateral segment) right lower lobe consolidation consistent with pneumonia. Differential diagnostic considerations include aspiration pneumonitis given the distribution of these findings. Please note that all CT scans at this facility use dose modulation, iterative reconstruction, and/or weight-based dosing when appropriate to reduce radiation dose to as low as reasonably achievable. Dictated by Carlin Garcia MD @ 01/11/2025 9:58:57 AM (Electronically Signed)
[2025-01-11] MEDS: 0.9 % SODIUM CHLORIDE 1000 ml 1,000 ML 6000 ML IV (09:18)
[2025-01-11 09:19] LABS: Basophils Absolute Auto 0.01 K/uL (0.00-0.30); Basophils Percent Auto 0.2 % (0.0-3.0); Eosinophils Absolute Auto 0.03 K/uL (0.00-0.50); Eosinophils Percent Auto 0.5 % (0.0-7.0); Hematocrit 36.8 % (33.0-51.0); Hemoglobin* 12.8 gm/dL (12.0-16.0); Immature Granulocytes Abs Auto 0.03 K/uL (0.00-0.30); Immature Granulocytes Pct Auto 0.5 %; Lymphocytes Absolute Auto 1.29 K/uL (0.90-2.90); Lymphocytes Percent Auto 20.8 % (20-44); Mean Corpuscular HGB Conc 35 gm/dL (32-36); Mean Corpuscular Hemoglobin 31 pg (26-34); Mean Corpuscular Volume 88 fL (80-100); Monocytes Percent Auto 7.7 % (0.0-11.0); Neutrophils Absolute Auto 4.37 K/uL (1.7-7.0); Neutrophils Percent Auto 70.3 % (42.0-72.0); Platelet Count* 146 K/uL (140-440); RDW Coefficient of Variation % 11.4 % (11.5-15.5); Red Blood Count 4.19 m/uL (4.00-5.20); White Blood Count* 6.21 K/uL (4.50-11.00)
[2025-01-11 09:21] LABS: Slide Review Reflex No
[2025-01-11 09:32] LABS: Chloride* 101 mmol/L (96-114); Potassium* 3.3 mmol/L (3.6-5.1); Sodium* 138 mmol/L (135-149)
[2025-01-11 09:36] LABS: Anion Gap 7 mEq/L (7-15); Blood Urea Nitrogen* 6 mg/dL (5-24); Calcium* 7.9 mg/dL (8.4-10.6); Carbon Dioxide* 30 mmol/L (20-32); Creatinine* 0.6 mg/dL (0.5-1.5); Estimated Glomerular Filt Rate 119 ml/min; Glucose* 112 mg/dL (60-115)
[2025-01-11 09:38] LABS: C Reactive Protein* 4.1 mg/dL (0.5-1.0)
[2025-01-11] MEDS: cefTRIAXone 1 GM in 0.9 % SODIUM CHLORIDE Mini-bag 100 ML IVPB (10:06)
--- OUTSIDE RECORDS SUMMARY | 2025-01-11 10:06 | XMS_ITS | Encounter Summary ---
Author Name [facility] [place] [facility] [place] Address [address] [place] [address] Care Team Providers Care Attending Radiologist Name Role Phone LONA CINDY Primary Care Provider Unavail able Selected Encounter This section includes the information on record at [place] for the Encounter. Date/Time Encounter Type Encounter Description Reason Provider Source Dec 28, 2024 01:00 PM SELF CARE MNGMENT TRAINING OCCUPATIONAL THERAPY ICD-10-CM G89.29 Other chronic pain CAMILLE HERNANDEZ [place] Encounter Template Text not used by [place] Assessments - Encounter Diagnoses This section includes the primary and secondary diagnoses documented for the Encounter. Date/Time Primary/Secondary Diagnosis Diagnosis Name Provider Source Dec 28, 2024 03:59 PM PRIMARY Other chronic pain CAMILLE HERNANDEZ [facility] Plan of Treatment: Future Appointments (+ 6 months) and Future Tests (+/- 45 days) The Plan of Treatment section includes future care activities for the patient from all [place] treatmentfacilities. This section includes future appointments and future orders which are active, pending or scheduled. Future Appointments This section includes appointments that were scheduled to occur 6 months from the date of the Encounter, up to a maximum of 20 appointments. The data comes from all [place] treatment facilities. Appointment Date/Time Appointment Type Appointme nt Facility Name Dec 29, 2024 10:00 AM AMBULATORY - REHAB MEDICIN E [facility] Jan 02, 2025 08:30 AM AMBULATORY - REHAB MEDICIN E [facility] Jan 05, 2025 01:58 PM AMBULATORY - MEDICINE [facility] Jan 06, 2025 03:00 PM AMBULATORY - REHAB MEDICIN E [facility] Jan 10, 2025 09:00 AM AMBULATORY - REHAB MEDICIN E [facility] Jan 16, 2025 10:00 AM AMBULATORY - REHAB MEDICIN E [facility] Jan 18, 2025 09:00 AM AMBULATORY - REHAB MEDICIN E [facility] Jan 23, 2025 09:00 AM AMBULATORY - REHAB MEDICIN E [facility] Jan 25, 2025 09:00 AM AMBULATORY - REHAB MEDICIN E [facility] February 21, 2025 10:00 AM [facility] February 21, 2025 11:00 AM AMBULATORY - MEDICINE [facility] February 28, 2025 01:00 PM AMBULATORY - REHAB MEDICIN E [facility] March 14, 2025 02:00 PM AMBULATORY - REHAB MEDICIN E [facility] Apr 28, 2025 09:30 AM AMBULATORY - SURGERY [facility] Active, Pending, and Scheduled Orders This section includes a listing of several types of active, pending, and scheduled orders, including clinic medications orders, diagnostic test orders, procedure orders and consult orders; where the start date of the order is 45 days before the date of the Encounter or 45 days after the date of theEncounter. The data comes from all [place] treatment [facility]. Test Date/Time Test Type Test Details Facility Name Nov 25, 2024 10:22 AM Consult Order OT OCCUPATIONAL THERAPY OUTPT VISION THERAPY Cons Ticket Sched[facility] Nov 30, 2024 12:00 AM Laboratory - Chemistry Order CBC BLOOD STAT SP ONCE [facility] Nov 30, 2024 12:00 AM Laboratory - Chemistry Order CREATININE(INCLUDES EGFR) PLASMA STAT SP ONCE [facility] Nov 30, 2024 12:00 AM Laboratory - Chemistry Order PROTHROMBIN TIME/INR PLASMA STAT SP [facility] Dec 01, 2024 11:53 AM Consult Order CSP PCAFC FUNCTIONAL ASSESSMENT INSTRUMENT OUTPT Cons Ticket Scheduler's Choice [facility] Jan 03, 2025 12:08 PM Consult Order OT OCCUPATIONAL THERAPY OUTPT HOME ACCESSIBILITY Cons Ticket Scheduler's Choice [facility] Jan 05, 2025 03:02 PM Consult Order ENT OUTPT Cons Ticket Scheduler[facility] Choice [facility] Lab Results: +/- 30 days of the encounter This section includes the Chemistry and Hematology Lab Results on record with [place] for the patient. Radiology Reports and Pathology Reports are provided separately, in subsequent sections. Lab Results This section contains the Chemistry/Hematology Results that were resulted 30 days before or 30 daysafter the date of the Encounter. Date/Time Source Result Type Result - Unit Interpretation Reference Range Comment Dec 09, 2024 08:34 AM [facility] PROTHROMBIN TIME/INR Specimen Type: PLASMA No comment entered. Ordering Provider: STEPHEN FRANCOIS Report Released Date/Time: Dec 06, 2024 09:29 AM Reporting Lab: [facility] [id number] Performing Lab: [facility] [id number] .INR 1.1 0.8-1.1 .PT 12.9 s H 9.4-12.5 Dec 09, 2024 08:34 AM [facility] CREATININE(INCLUDES EGFR) Specimen Type: PLASMA No comment entered. Ordering Provider: STEPHEN FRANCOIS Report Released Date/Time: Dec 06, 2024 09:29 AM Reporting Lab: [facility] [id number] Performing Lab: [facility] [id number] CREATININE 0.6 mg/dL 0.5-1.0 .CREAT EGFR(CKD-EPI) >90 >60 Dec 09, 2024 08:34 AM [facility] CBC & DIFF Specimen Type: BLOOD Comment: Automated Differential Performed Ordering Provider: STEPHEN FRANCOIS Report Released Date/Time: Dec 06, 2024 09:29 AM Reporting Lab: [facility] [id number] Performing Lab: [facility] [id number] WBC 4.4 4.0-11.0 RBC 4.42 4.00-5.40 HGB [...] EOS 0.1 0.0-0.5 ABS BASO 0.0 0.0-0.2 IG(META,MYELO ,PRO) 0.2 ABS IMMATURE GRAN 0.0 0.0-0.1 Social History: Smoking Status (Most current) and Tobacco Use (All prior to encounter date) This section includes the most current, and the historical, smoking and tobacco- related health factors from the [place] facility where the Encounter took place. Current Smoking Status This section includes the most current smoking, or tobacco-related health factor, from the [place] facility where the Encounter took place. Date/Time Current Smoking Status Comment Facil ity Nov 27, 2023 03:30 PM VA-TOBACCO FORMER USER [facility] Tobacco Use History This section includes a history of the smoking, or tobacco-related health factors, that were collected on or before the date of the Encounter. The data comes from the [place] facility where the Encounter took place. Date/Time Smoking Status/Tobacco Use Comment F acility Nov 27, 2023 03:30 PM VA-TOBACCO QUIT 5 TO < 15 YRS [facility] Jan 14, 2023 09:03 AM VA-TOBACCO FORMER USER [facility] Jan 14, 2023 09:03 AM VA-TOBACCO QUIT 5 TO < 15 YRS [facility] Radiology Reports: +/- 30 days of the [...] the Encounter. The data comes from all [place] treatment facilities. Date/Time Radiology Report Provider Source Dec 16, 2024 07:03 AM MRI-BRAIN (P): AWAIS PADILLA [id number] -1990 F Exm Date: DEC 16, 2024@07:03 Req Phys: STEPHEN FRANCOIS Loc: [facility] NEUROSURG RECREATION THERAPIST CONSULT-A (Re Img Loc: MRI IMAGING Service: Unknown [place]: [place] [address] (Case [id number] COMPLETE) MRI BRAIN/BRAINSTEM W/O CONTRAST (MRI Detailed) CPT:30539 Reason for Study: Myelopathy Clinical History: Did the ordering provider speak with a process consultant regarding this imaging exam?No Brain MRI without contrast Myelopathy LAST CREATININE 0.6 (11/22/24) Allergies: METOPROLOL (Jan 14, 2023) REGLAN (Jan 14, 2023) My pager number on record is: [phone]. The pager number/cell phone number above is [...] 16, 2024 Date Verified: DEC 16, 2024 Utility Gelatin Maker E-Sig:/ES/SUJIT DENIS MD Report: MRI BRAIN/BRAINSTEM [...] Primary Interpreting Staff: SUJIT DENIS MD, RADIOLOGIST (Utility Gelatin Maker) /[facility] SUJIT DENIS [facility] Dec 09, 2024 09:[address] MYELOGRAM THORA CIC (P): AWAIS PADILLA [id number] -1990 F Exm Date: DEC 09, 2024@09:52 Req Phys: STEPHEN FRANCOIS Pat Loc: [facility] NEUROSURG RECREATION THERAPIST CONSULT-A (Re Img Loc: CT IMAGING Service: Unknown Screen: [place] [address] (Case [id number] COMPLETE) CT MYELOGRAM THORACIC SPINE (CT Detailed) CPT:77134 CPT Modifiers : 59 DISTINCT PROCEDURAL SERVICE [...] PLASMA .CREAT EGFR(CKD-E >90 Ref: >=60 Allergies: ([place] only) METOPROLOL (Jan 14, 2023) REGLAN (Jan 14, 2023) Defer to radiologist for final CT protocol. User Placing Order: STEPHEN FRANCOIS - Office Phone: My pager number on record is: [phone]. The pager number/cell phone number above is NOT correct for reporting critical results, I have entered my correct number below: My correct contact # for critial results is:neurosurgery complaint evaluation supervisor Trainees only: Enter your staff provider's info here: Per Joint Commission Standards, by signing this diagnostic imaging request the ordering provider confirms they have considered patients age and recent imaging history. Report Status: Verified Date Reported: DEC 09, 2024 Date Verified: DEC 09, 2024 Utility Gelatin Maker E-Sig:/ES/CARITO POLANCO MD Report: CT Thoracic [...] Primary Interpreting Staff: CARITO POLANCO MD, RADIOLOGIST (Utility Gelatin Maker) /CARITO TOLENTINO [facility] Dec 09, 2024 08:50 AM MYELOGRAM THORACIC (P): AWAIS PADILLA [id number] -1990 F Exm Date: DEC 09, 2024@08:50 Req Phys: STEPHEN FRANCOIS Pat Loc: [facility] NEUROSURG RECREATION THERAPIST CONSULT-A (Re Img Loc: MAIN X-RAY Service: Unknown [place]: [place] [address] (Case [id number] COMPLETE) MYELOGRAM THORACIC VIA LUMBAR INJ(RAD Detailed) CPT:67545 Reason for Study: Eval for arachnoid web or cyst at T6 level Clinical History: myelopathy Outside hosptial Thoracic mri w wo contrast is loaded into [employer]. Please do comparison . thank you Responsible provider name and phone number to notify for critical findings if other than user placing the order and pager listed below: User placing orders pager: [phone] Neurosurgery complaint evaluation supervisor LAST CREATININE 0.6 (11/22/24) Report Status: Verified Date Reported: DEC 09, 2024 Date Verified: DEC 09, 2024 Utility Gelatin Maker E-Sig:/ES/CARITO POLANCO MD Report: PROCEDURE: Lumbar puncture with fluoroscopic guidance. Thoracic myelogram. History: Myelopathy. Thoracic MRI shows dorsal lesion at T6. Comparison: Outside recent thoracic MRI exam from the [facility]. Fluoro time: 0.8 minute Dose: Air Kerma: 3.9, mGy, DAP: 3.54, dGy.cm? PROCEDURE: The patient/medical decision-maker understood the limitations, alternatives, and risks of the procedure and requested the procedure be performed. Both iMed and oral consent were obtained. A pre-procedural Time-Out was performed per [facility] policy. The patient was prepped and [...] Primary Interpreting Staff: CARITO POLANCO MD, RADIOLOGIST (Utility Gelatin Maker) /CARITO TOLENTINO [facility] Encounter Notes: All associated encounter notes This section contains the clinical notes associated to the Encounter. Date/Time Encounter Note(s) Provider Source Dec 28, 2024 07:54 AM OCCUPATIONAL THERA PY CONSULT: LOCAL TITLE: OCCUPATIONAL THERAPY CONSULT STANDARD TITLE: OCCUPATIONAL THERAPY CONSULT DATE OF NOTE: DEC 28, 2024@07:54 ENTRY DATE: DEC 28, 2024@07:54:50 AUTHOR: CAMILLE HERNANDEZ EXP COSIGNER: URGENCY: STATUS: COMPLETED [facility] Occupational Therapy Evaluation Treatment: Treatment Diagnosis: Widespread pain Referring Provider: ADELINE MINAYA Date of Initial: Dec Precautions: # of Visits: 1 Pt seen Dec 28, 2024 for OT evaluation high complexity 40 min Self-Care Management and Training 15 min * Vet recently evaluated F2F by [facility] PT and Neurosurgery- red flag screening [...] helpful PHYSICAL EVALUATION: Observation: Vet seen over [facility], seated for majority of visit. She did stand at one point and required assist from her spouse to stand, leaned on table. Demonstrated functional AROM of UE and neck throughout evaluation. FUNCTIONAL PERFORMANCE ADL/IADL PERFORMANCE: Rachel's provides assistance with toilet transfers, showering. Walk-in shower- has fallen out of shower before and now is always there. 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 Item #: [id number] + Vet with questions regarding stair glide to lower level for storm safety. Sparmaker to notify Caregiver Support Program OT with upcoming evaluation on 01/04. Sparmaker also noting Pain PT goal for vet to increase stair performance Evaluation Modifications communication (verbal/nonverbal) family/ psychiatric clinician present ingrained thought patterns pain behaviors Goals [...] her spouse and 4 children in a [facility], reports a sedentary lifestyle with significant time [...] up approaches to pain treatment. Other Services: [facility] PT, Psychology Treatment Plan Pt will [...] the following prior to start of visit: -[place] identified by Full name and Full Social Security number. -[place] has provided verbal consent to use [place] [employer]) and was informed of their right to request a fcjk-eq-dcue visit instead at any time. - states he/she is in a safe and private environment suitable for the Telehealth encounter. Visit conducted by synchronous telehealth. verbal consent obtained. Location/emergency number confirmed. Environment surveyed and all participants identified. Virtual conference room locked. -Visit conducted by telehealth into the home using: -Laptop Email: Troubleshooting required during visit: Others present: Paulo Location of patient during session: [address] [place] [address] Emergency phone number (u492): [phone] Veterans Crisis Line: 988 & press #1 or text [phone] [facility] Telehealth Technology Help Desk (NTTHD): [phone] or [phone]. The verbalizes authorization of an Occupational Therapy Home evaluation to provide care and treatment ordered by their physician as needed. The also understands there may be a cost for the visit if not completed via telehealth. The notes responsibility to find out if they have a co- payment through their insurance. Questions regarding co-payment can be referred to the [facility] at . If the has concerns that arise during the visit that the home care team cannot resolve, they are understanding they can contact the patient telesales representative at [phone]. OCCUPATIONAL THERAPY EVALUATION COMPLEXITY Identifying and reporting [...] OCCUPATIONAL THERAPIST Signed: 12/30/2024 13:47 CAMILLE HERNANDEZ [facility]
--- OUTSIDE RECORDS SUMMARY | 2025-01-11 10:06 | XMS_ITS | Encounter Summary ---
Author Name [facility] [place] Address [address] [place] [id number] Care Team Providers Care Rn Forensic Name Role Phone CINDY ZAMORANO Primary Care Provider Unavail able Selected Encounter This section includes the information on record at [place] for the Encounter. Date/Time Encounter Type Encounter Description Reason Pro vider Source I[facility] Encounter Template Text not used by [place]
--- OUTSIDE RECORDS SUMMARY | 2025-01-11 10:06 | XMS_ITS | Encounter Summary ---
Author Name [facility] ([place]) Organization [facility]) Address [address] [place] [address] Care Team Providers Care Machine Operations Supervisor Name Role Phone CINDY ZAMORANO Primary Care Provider Unavail able Selected Encounter This section includes the information on record at OR for the Encounter. Date/Time Encounter Type Encounter Description Reason Provider Source Aug 02, 2024 09:30 AM OFFICE O/P EST HI 40 MIN PRIMARY CARE/MEDICINE ICD-10-CM M26.609 Unspecified TMJ joint disorder, unspecified side JOVANNAJOHN Nikita IHE Encounter Template Text not used by OR Assessments - Encounter Diagnoses This section includes the primary and secondary diagnoses documented for the Encounter. Date/Time Primary/Secondary Diagnosis Diagnosis Name Provider Source Jan 03, 2025 09:52 AM PRIMARY Unspecified TMJ joint disorder, unspecified side NUGENTJOHN [facility] Jan 03, 2025 09:52 AM SECONDARY Headache, unspecified NUGENTJOHN [facility] Jan 03, 2025 09:52 AM SECONDARY Muscle weakness (generalized) JOHN NUGENT [facility] Jan 03, 2025 09:52 AM SECONDARY Personal history of traumatic brain injury JOHN NUGENT [facility] Jan 03, 2025 09:52 AM SECONDARY Splenomegaly, not elsewhere classified NUGENTJOHN [facility] Plan of Treatment: Future Appointments (+ 6 months) and Future Tests (+/- 45 days) The Plan of Treatment section includes [facility] care activities [facility] This section includes future appointments and future orders which are active, pending or scheduled. Future Appointments This section includes appointments that were scheduled to occur 6 months from the date of the Encounter, up to a maximum of 20 appointments. The data comes from all [facility]. Appointment Date/Time Appointment Type Appointme nt Facility Name Aug 03, 2024 03:00 PM AMBULATORY - REHAB MEDICIN E [facility] Aug 16, 2024 08:30 AM AMBULATORY - REHAB MEDICIN E [facility] Aug 23, 2024 02:24 PM [facility] Sep 05, 2024 05:20 PM AMBUL[facility] - [facility] MEDICIN [facility] Sep 19, 2024 01:00 PM [facility] [place] [facility] Oct 04, 2024 09:00 AM AMBULATORY - REHAB MEDICIN E [facility] Oct 10, 2024 09:30 AM AMBULATORY - REHAB MEDICIN E [facility] Oct 25, 2024 10:00 AM [facility] Oct 25, 2024 05:10 PM AMBULATORY - REHAB MEDICIN E [facility] Nov 15, 2024 12:45 PM [facility] - [place]ONE [place] [facility] Nov 22, 2024 09:30 AM [facility] [place]ONE [place] [facility] Nov 22, 2024 10:30 AM [facility] Nov 25, 2024 09:30 AM AM[facility]UL[facility]ORY - SURGERY [facility] Nov 26, 2024 09:29 AM [place] [facility] Nov 30, 2024 11:00 AM [place] [place] [facility] Dec 02, 2024 08:00 AM AMBULATORY - REHAB MEDICIN E [facility] Dec 09, 2024 08:30 AM [facility] - [place]ONE [place] [facility] Dec 09, 2024 09:30 AM [facility] [place]ONE [place] [facility] Dec 09, 2024 10:30 AM [facility] - [place]ONE [place] [facility] Dec 09, 2024 10:45 AM AMBULATORY - SURGERY [facility] Lab Results: +/- 30 days of the encounter This section includes the Chemistry and Hematology Lab Results on record with OR for the patient. Radiology Reports and Pathology Reports are provided separately, in subsequent sections. Lab Results This section contains the Chemistry/Hematology Results that were resulted 30 days before or 30 daysafter the date of the Encounter. Date/Time Source Result Type Result - Unit Interpretation Reference Range Comment Aug 23, 2024 03:57 PM [facility] COVID-19 AND FLU/RSV DIAG PANEL(CEPHEID) Specimen Typ e: NASOPHARYNGEAL Comment: Cepheid GeneXpert (618) Ordering Provider: RANDAL CHAMBERLAIN Report Released Date/Time: Aug 23, 2024 03:43 PM Reporting Lab: [facility] [id number] Performing Lab: [facility] [phone] COVID-19 (CEPHEID) Not Detected Not Detected INFLUENZA A (PCR) Not Detected Not Detected INFLUENZA B (PCR) Not Detected Not Detected RSV (PCR) Not Detected Not Detected Aug 23, 2024 03:57 PM [facility] HCG, QUAL Specimen Type: URINE Comment: Cepheid GeneXpert (618) Ordering Provider: RANDAL CHAMBERLAIN Report Released Date/Time: Aug 23, 2024 03:47 PM Reporting Lab: [facility] [phone] Performing Lab: [facility] [phone] HCG, QUAL NEGATIVE -neg- Aug 23, 2024 03:30 PM [facility] URINALYSIS Specimen Type: URINE No comment entered. Ordering Provider: RANDAL CHAMBERLAIN Report Released Date/Time: Aug 23, 2024 03:43 PM Reporting Lab: [facility] [phone] Performing Lab: [facility] [phone] URINE COLOR LIGHT-YELLOW SPECIFIC GRAVITY 1.014 1.003-1.03 5 URINE BILIRUBIN NEGATIVE NEGATIVE URINE KETONES NEGATIVE NEGATIVE URINE GLUCOSE NEGATIVE mg/dL <30 URINE PROTEIN NEGATIVE mg/dL <20 URINE PH 6.0 5.0-8.0 URINE WBC/HPF <1 /[HPF] 0-7 URINE BACTERIA NONE SEEN URINE RBC/HPF NONE SEEN /[HPF] 0-3 APPEARANCE CLEAR SQUAMOUS EPITHELIAL 6 /[HPF] URINE BLOOD NEGATIVE NEGATIVE URINE NITRITE NEGATIVE NEGATIVE LEUKOCYTE ESTERASE NEGATIVE NEGATIVE Jul 24, 2024 04:10 PM [facility] HCG, QUAL Specimen Type: URINE No comment entered. Ordering Provider: IGNACIO ESPARZA Report Released Date/Time: Jul 24, 2024 02:59 PM Reporting Lab: [facility] [phone] Performing Lab: [facility] [phone] HCG, QUAL NEGATIVE -neg- Jul 24, 2024 04:10 PM [facility] URINALYSIS Specimen Type: URINE No comment entered. Ordering Provider: IGNACIO ESPARZA Report Released Date/Time: Jul 24, 2024 02:59 PM Reporting Lab: [facility] [phone] Performing Lab: [facility] [address] URINE COLOR LIGHT-YELLOW SPECIFIC GRAVITY 1.023 1.003-1.03 5 URINE BILIRUBIN NEGATIVE NEGATIVE URINE KETONES NEGATIVE NEGATIVE URINE GLUCOSE NEGATIVE mg/dL <30 URINE PROTEIN NEGATIVE mg/dL <20 URINE PH 6.0 5.0-8.0 URINE WBC/HPF <1 /[HPF] 0-7 URINE BACTERIA NONE SEEN URINE RBC/HPF 1 /[HPF] 0-3 APPEARANCE CLEAR SQUAMOUS EPITHELIAL <1 /[HPF] URINE BLOOD NEGATIVE NEGATIVE URINE NITRITE NEGATIVE NEGATIVE LEUKOCYTE ESTERASE NEGATIVE NEGATIVE Jul 24, 2024 03:09 PM [facility] EXTRA GOLD GEL TUBE Specimen Type: SERUM No comment entered. Ordering Provider: IGNACIO ESPARZA Report Released Date/Time: Jul 24, 2024 03:09 PM Reporting Lab: [facility] [phone] Performing Lab: [facility] [phone] EXTRA GOLD GEL TUBE RECEIVED Jul 24, 2024 03:08 PM [facility] PROTHROMBIN TIME/INR Specimen Type: PLASMA No comment entered. Ordering Provider: IGNACIO ESPARZA Report Released Date/Time: Jul 24, 2024 02:59 PM Reporting Lab: [facility] [phone] Performing Lab: [facility] [phone] .INR 1.0 0.8-1.1 .PT 12.1 s 9.4-12.5 Jul 24, 2024 03:08 PM [facility] COMPREHENSIVE METABOLIC PANEL+MG Specimen Type: PLASMA No comment entered. Ordering Provider: IGNACIO ESPARZA Report Released Date/Time: Jul 24, 2024 02:59 PM Reporting Lab: [facility] [phone] Performing Lab: [facility] [phone] CREATININE 0.6 mg/dL 0.5-1.0 UREA NITROGEN 10 [...] >90 >60 Jul 24, 2024 03:08 PM [facility] CBC & DIFF Specimen Type: BLOOD Comment: Automated Differential Performed Ordering Provider: IGNACIO ESPARZA Report Released Date/Time: Jul 24, 2024 02:59 PM Reporting Lab: [facility] [phone] Performing Lab: [facility] [phone] WBC 4.4 4.0-11.0 RBC 4.48 4.00-5.40 HGB [...] EOS 0.1 0-0.5 ABS BASO 0.0 0-0.2 IG(META,MYELO, PRO) 0.2 ABS IMMATURE GRAN 0.0 0-0.1 Social History: Smoking Status (Most current) and Tobacco Use (All prior to encounter date) This section includes the most current, and the historical, smoking and tobacco- related health factors from the OR facility where the Encounter took place. Current Smoking Status This section includes the most current smoking, or tobacco-related health factor, from the OR facility where the Encounter took place. Date/Time Current Smoking Status Comment Facil ity Nov 27, 2023 03:30 PM VA-TOBACCO FORMER USER [facility] Tobacco Use History This section includes a history of the smoking, or tobacco-related health factors, that were collected on or before the date of the Encounter. The data comes from the OR facility where the Encounter took place. Date/Time Smoking Status/Tobacco Use Comment F acility Nov 27, 2023 03:30 PM VA-TOBACCO QUIT 5 TO < 15 YRS [facility] Jan 14, 2023 09:03 AM VA-TOBACCO FORMER USER [facility] Jan 14, 2023 09:03 AM VA-TOBACCO QUIT 5 TO < 15 YRS [facility] [...] the Encounter. The data comes from all OR treatment facilities. Date/Time Radiology Report Provider Source Aug 23, 2024 04:06 PM CHEST 2 VIEWS [place] LAT: AWAIS PADILLA [id number] -1990 F Exm Date: AUG 23, 2024@16:06 Req Phys: RANDAL CHAMBERLAIN Loc: [facility] EMERGENCY DEPT WALK-IN (Re Img Loc: MAIN X-RAY Service: Unknown Screen: [place] [address] (Case [id number] COMPLETE) CHEST 2 VIEWS PA AND LAT (RAD Detailed) CPT:82856 Reason for Study: same Clinical History: [place] IS under investigation (PUI) for COVID-19 or is COVID-19+ Cough x 1 day Responsible provider name and phone number to notify for critical findings if other than user placing the order and pager listed below: User placing orders pager: LAST CREATININE 0.6 (07/24/24) Report Status: Verified Date Reported: AUG 23, 2024 Date Verified: AUG 23, 2024 Deputy Director Of Public Works E-Sig:/ES/CODY CASTILLO MD Report: CHEST 2 VIEWS PA AND LAT 08/23/2024 INDICATION: same COMPARISON: None. FINDINGS: Heart and pulmonary vasculature are within normal limits for size. Lungs are clear. Bones are unremarkable. Impression: No visible acute cardiopulmonary disease. Primary Interpreting Staff: CODY CASTILLO MD, RADIOLOGIST (Deputy Director Of Public Works) /CODY RIOS [facility] Jul 24, 2024 03:[address] (AP) ABDOMEN/PE LVIS (P): AWAIS PADILLA [id number] -1990 F Exm Date: JUL 24, 2024@15:44 Req Phys: ÁNGEL ESPARZA Pat Loc: [facility] EMERGENCY [facility] WALK-IN (Re Img Loc: CT IMAGING Service: Unknown Screen: [place] [address] (Case [id number] COMPLETE) CT (AP) ABDOMEN/PELVIS W CONTRAST(CT Detailed) CPT:30810 Contrast Media : Non-ionic Iodinated Reason for [...] PLASMA .CREAT EGFR(CKD-E >90 Ref: >=60 Allergies: ([place] only) METOPROLOL (Jan 14, 2023) REGLAN (Jan 14, 2023) Defer to radiologist for final CT protocol. Contact number for responsible provider who can be reached for any questions or notifications of critical findings: tish ext [phone] Per Joint Commission Standards, by signing this diagnostic imaging request the ordering provider confirms they have considered patients age and recent imaging history. Report Status: Verified Date Reported: JUL 24, 2024 Date Verified: JUL 24, 2024 Deputy Director Of Public Works E-Sig: Report: CT (AP) ABDOMEN/PELVIS W CONTRAST [PRINTSET] HISTORY: Recurrent LUQ pain COMPARISON: Abdomen and pelvis CT on 02/22/2024. TECHNIQUE: CT of the abdomen and pelvis with multiplanar reformats was performed at the local OR facility. 823 images were received by the OR National Teleradiology Program (NTP) for interpretation. RADIATION [...] mild splenomegaly. READING PHYSICIAN: Nunu Jackson MD -[phone] 07/24/2024 14:20 PDT [facility] National Teleradiology Program [phone] (For Medical Practitioner Use Only) Attention Patients / Veterans: If you have questions or concerns about these test results, please contact your ordering provider or primary care team. Primary Interpreting Staff: RADIOLOGY,OUTSIDE SERVICE, Staff Physician / RADIOLOGY,OUTSIDE SERVICE [facility] Pathology Reports: +/- 30 days [...] the Encounter. The data comes from all OR treatment facilities. Date/Time Pathology Report Provider Source Aug 23, 2024 03:57 PM LR MICROBIOLOGY RE PORT: Reporting Lab: [facility] [CLIA# [id number]] [place] [address] Accession [UID]: [id number] [[id number]] Received: Aug 23, 2024@15:57 Collection sample: URINE Collection date: Aug 23, 2024 15:57 Provider: RANDAL CHAMBERLAIN Comment on specimen: RECEIVED IN STERILE CUP Test(s) ordered: CULTURE & SUSCEPTIBILITY...... completed: Aug 25, 2024 * BACTERIOLOGY FINAL REPORT => Aug 25, 2024 07:44 TECH CODE: [id number] CULTURE RESULTS: LESS THAN 10,000 CFU/ML Bacteriology Remark(s): THIS REPORT IS FINAL =--=--=--=--=--=--=--=--=--=--=--=- -=--=--=--=--=--=--=--=--=--=--=--= --=--=-- Performing Laboratory: Bacteriology Report Performed By: [facility] [CLIA# [id number]] [place] [address] [facility] Encounter Notes: All associated encounter [...] testing completed in 2022 or 2023, from [facility] Neurology? Thanks. /los/ JOHN NUGENT MD STAFF [...] October along with follow up imaging to [facility] for lymphadenopathy. She also had a brain [...] and slowly improved. Was not seen at OR during that time. She still has intermittent [...] legs 07/25/2024. Possible early carpal tunnel symptoms[facility] [place]. needs to make an appt to go [...] been really helpful. updates: Maternal grandfather with NC before the age of 50. Paternal grandmother with multiple sclerosis. Dad has Parkinsons and diabetes. Aunt with cerebellar dysfunction. SH: Living situation: Lives with her Paulo and four kids. -------- ASSESSMENT AND PLAN -------- overall plan from today: - obtain records from [facility] Neurology evaluating her leg symptoms - PT [...] TMJ. # Difficulty walking when fatigued: # [place]'s concern for spinal cord pathology: Extreme leg [...] weeks? Just underwent testing at outside neurology ([facility]) -- I will obtain those records and we can follow up pending review of their testing and recommendations to avoid duplication of efforts. # waxing and waning splenomegaly and cervical lymphadenopathy: Did have positive testing for mononucleosis summer 2023; antibiodies suggested intermediate time frame of infection. unclear if this could explain her symptoms. She is following with Dr Bruce of [facility]. # Headaches and episodic slurring of speech [...] readings below 70. See note from [facility] 04/15/24. RETURN TO CLINIC: 3m to meet new PCP or sooner PRN -------- EXAM -------- No vitals obtained as visit was conducted over [facility]. Exam: Tired appearing, otherwise well Face [...] Remote Allergy/ADR Data available for this patient [facility] METOPROLOL [facility] REGLAN Active and Recently Outpatient [...] AT BEDTIME 2) Non-VA ONDANSETRON TAB Si[facility] [id number] ACTIVE Start Date Inactive Non-VA Medications Refills [...] STAFF PHYSICIAN Signed: 08/02/2024 13:59 JOHN NUGENT [facility] Aug 02, 2024 09:29 AM INTERNAL MEDICINE NOTE: LOCAL TITLE: MEDICINE CLINIC NOTE STANDARD TITLE: INTERNAL MEDICINE NOTE DATE OF NOTE: AUG 02, 2024@09:29 ENTRY DATE: AUG 02, 2024@09:29:16 AUTHOR: JOHN NUGENT EXP COSIGNER: URGENCY: STATUS: COMPLETED MEDICINE CLINIC [...] CMP, INR) all normal! -------- HPI -------- [place]'s concerns: [] ENT appt yesterday to eval [...] legs 07/25/2024. Possible early carpal tunnel symptoms. [facility] in [place]. needs to make an appt to go [...] really helpful. FH updates: Maternal grandfather with NC before the age of 50. Paternal grandmother with multiple sclerosis. Dad has Parkinsons and diabetes. Aunt with cerebellar dysfunction. SH: Living situation: Lives with her Paulo and four kids. -------- ASSESSMENT AND PLAN -------- overall plan from today: - [facility] her leg symptoms - PT [...] TMJ. # Difficulty walking when fatigued: # [place]'s concern for spinal cord pathology: Extreme leg [...] weeks? Just underwent testing at outside neurology ([facility]) -- I will obtain those records and [...] vitals obtained as visit was conducted over [facility]. Exam: Tired appearing, otherwise well Face [...] Remote Allergy/ADR Data available for this patient [facility] METOPROLOL [facility] REGLAN Active and Recently Outpatient [...] AT BEDTIME 2) Non-VA ONDANSETRON TAB SiMG [id number] ACTIVE Start Date Inactive Non-VA Medications Refills [...] testing completed in 2022 or 2023, from [facility] Neurology? Thanks. /orestes NUGENT MD STAFF PHYSICIAN Signed: 08/02/2024 13:59 Receipt Acknowledged By: * AWAITING SIGNATURE * ANDRES TA AMY L [place] [facility]
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
--- OUTSIDE RECORDS SUMMARY | 2025-01-11 10:07 | XMS_ITS | Encounter Summary ---
Author Name [facility] Organization [facility] [place] Address [address] [place] [address] Care Team Providers Care Hydramatic Specialist Name Role Phone CINDY ZAMORANO Primary Care Provider Unavail able Selected Encounter This section includes the information on record at [place] for the Encounter. Date/Time Encounter Type Encounter Description Reason Provider Source Oct 10, 2024 09:30 AM NEUROMUSCULAR REEDUCATION POLYTRAUMA/TBI IND ICD-10-CM M54.2 Cervicalgia SHABANA FERRIS [facility] Encounter Template Text not used by [place] Assessments - Encounter Diagnoses This section includes the primary and secondary diagnoses documented for the Encounter. Date/Time Primary/Secondary Diagnosis Diagnosis Name Provider Source Jan 03, 2025 09:57 AM PRIMARY Cervicalgia ISABEL YORK [facility] Jan 03, 2025 09:57 AM SECONDARY Dizziness and giddiness ISABEL YORK [facility] Jan 03, 2025 09:57 AM SECONDARY Headache, unspecified ISABEL YORK [facility] Plan of Treatment: Future Appointments (+ 6 months) and Future Tests (+/- 45 days) The Plan of Treatment section includes future care activities for the patient from all [place] treatmentfacilities. This section includes future appointments and future orders which are active, pending or scheduled. Future Appointments This section includes appointments that were scheduled to occur 6 months from the date of the Encounter, up to a maximum of 20 appointments. The data comes from all [facility]. Appointment Date/Time Appointment Type Appointme nt Facility Name Oct 25, 2024 10:00 AM [facility] Oct 25, 2024 05:10 PM AMBULATORY - REHAB MEDICIN E [facility] Nov 15, 2024 12:45 PM AMBULATORY - NONE [place] [facility] Nov 22, 2024 09:30 AM AM[facility]ORY - NONE [place] [facility] Nov 22, 2024 10:30 AM AMBULATORY - MEDICINE [facility] Nov 25, 2024 09:30 AM AMBULATORY - SURGERY [facility] Nov 26, 2024 09:29 AM AMBULATORY - MEDICINE [facility] Nov 30, 2024 11:00 AM [place]ORY [place] [facility] Dec 02, 2024 08:00 AM AMBULATORY - REHAB MEDICIN E [facility] Dec 09, 2024 08:30 AM [facility]ORY - [place]ONE [place] [facility] Dec 09, 2024 09:30 AM AM[facility]ORY - NONE [place] [facility] Dec 09, 2024 10:30 AM [facility]UL[facility]ORY - [place]ONE [place] [facility] Dec 09, 2024 10:45 AM AMBULATORY - [place]GERY [place] [facility] Dec 13, 2024 01:00 PM AMBULATORY - REHAB MEDICIN E [facility] Dec 16, 2024 07:00 AM AM[place]ORY - [place]ONE [place] [facility] Dec 21, 2024 10:00 AM AMBULATORY - REHAB MEDICIN E [facility] Dec 22, 2024 11:00 AM AMBULATORY - SURGERY [place] [facility] Dec 23, 2024 08:00 AM AMBULATORY - REHAB MEDICIN E [facility] Dec 28, 2024 01:00 PM AMBULATORY - REHAB MEDICIN E [facility] Dec 29, 2024 10:00 AM AMBULATORY - REHAB MEDICIN [facility] Active, Pending, and Scheduled Orders This section includes a listing of several types of active, pending, and scheduled orders, including clinic medications orders, diagnostic test orders, procedure orders and consult orders; where the start date of the order is 45 days before the date of the Encounter or 45 days after the date of theEncounter. The data comes from all [facility]. Test Date/Time Test Type Test Details Facility Name Oct 25, 2024 12:00 AM Laboratory - Chemi stry Order CBC & DIFF BLOOD ONCO SP ONCE [facility] Social History: Smoking Status (Most current) and Tobacco Use (All prior to encounter date) This section includes the most current, and the historical, smoking and tobacco- related health factors from the [place] facility where the Encounter took place. Current Smoking Status This section includes the most current smoking, or tobacco-related health factor, from the [place] facility where the Encounter took place. Date/Time Current Smoking Status Comment Facil ity Nov 27, 2023 03:30 PM [place]-TOBACCO FORMER USER [facility] Tobacco Use History This section includes a history of the smoking, or tobacco-related health factors, that were collected on or before the date of the Encounter. The data comes from the [facility] where the Encounter took place. Date/Time Smoking Status/Tobacco Use Comment F acility Nov 27, 2023 03:30 PM [place]-TO[place]AC[place] QUIT 5 TO < 15 YRS [facility] Jan 14, 2023 09:03 AM VA-TOBACCO FORMER USER [facility] Jan 14, 2023 09:03 AM VA-TOBACCO [...] the Encounter. The data comes from all [place] treatment [facility]. Date/Time Radiology Report Provider Source Sep 19, 2024 12:[address] (CAP) CHEST/ABD /PELVIS (P): AWAIS PADILLA [id number] [phone] F Exm Date: SEP 19, 2024@12:58 Req Phys: KURT NEWELL Loc: [facility] (Req'g Loc) Img Loc: CT IMAGING Service: Unknown Screen: [place] [address] (Case [id number] COMPLETE) CT (CAP) CHEST W CONTRAST (CT Detailed) CPT:45160 Contrast Media : Non-ionic Iodinated Reason for Study: History of splenomegaly (Case 465 COMPLETE) CT (CAP) ABDOMEN/PELVIS W CONTRAS(CT Detailed) CPT:18986 Contrast Media : Non-ionic Iodinated Clinical History: IS NOT under investigation for COVID-19 or is COVID-19 negative Defer to radiologist for final protocol. History of splenomegaly Responsible provider name and phone number to notify for critical findings if other than user placing the order and pager listed below: User placing orders pager: [phone] LAST 3: Collection DT Specimen Test Name [...] 19, 2024 Date Verified: SEP 19, 2024 Puffer Tender E-Sig:/ES/WOLFGANG MILLER DO Report: EXAMINATION: CT (CAP) [...] pager listed below: User placing orders pager: [phone] LAST 3: Collection DT Specimen History of [...] Primary Interpreting Staff: WOLFGANG MILLER DO, RADIOLOGIST (Puffer Tender) /WOLFGANG LORENZ [facility] Encounter Notes: All [...] Visits: 6 # of Cancelled/No Show: 0 [place] Screen Due: No Chief complaint: Patient is [...] negative for symptoms, 3-5 beats of upbeating [place]: Right: negative for nystagmus, nausea noted in [...] exercises in [employer]: Access Code: [email or web address] URL: [email or web address] Date: 10/10/2024 Prepared by: Isabel York Exercises - Supine Suboccipital Release with Tennis Balls - 1-2 x daily - 7 x weekly - 2-10 min hold - External Masseter Mobilization - 1-2 x daily - 7 x weekly - 1-2 sets - 10 reps - *Chin Tuck with Arcadia Tail Push-Up - 1-2 x daily - 7 x weekly - 1-2 sets - 10 reps - 5-10 seconds hold - Chin Tuck with Arcadia-Tail Push-Up and Rotation - 1-2 x daily [...] visits 1 x/wk to every other week. [place] agreeable to follow up in clinic in [...] and approved by the primary PT. Encounter master data analyst was approved by the primary PT and is accurate for the services provided. /los/ Damaris Ferris PT, DPT, GCS Signed: 10/11/2024 08:43 ISABEL YORK [facility]
--- OUTSIDE RECORDS SUMMARY | 2025-01-11 10:07 | XMS_ITS | Encounter Summary ---
Author Name [facility] [place] [place] Organization [facility] [place] [facility] [place] Address [address] [place] [address] Care Team Providers Care Chief Deputy Coroner Name Role Phone MARÍA SEAY Primary Care Provider Unavail able Selected Encounter This section includes the information on record at [place] for the Encounter. Date/Time Encounter Type Encounter Description Reason Pro vider Source Dec 09, 2024 12:25 PM Outpatient Encounter TELEPHONE/SURGERY IHE Encounter Template Text not used by [place] Plan of Treatment: Future Appointments (+ 6 [...] 2024 01:00 PM AMBULATORY - REHAB MEDICIN [facility] Dec 16, 2024 07:00 AM AMBULATORY - NONE [facility] Dec 21, 2024 10:00 AM AMBULATORY - REHAB MEDICIN [facility] Dec 22, 2024 11:00 AM [facility] Dec 23, 2024 08:00 AM AMBULATORY - REHAB MEDICIN E [facility] Dec 28, 2024 01:00 PM AMBULATORY - REHAB MEDICIN E [facility] Dec 29, 2024 10:00 AM AMBULATORY - REHAB MEDICIN E [facility] Jan 02, 2025 08:30 AM AMBULATORY - REHAB MEDICIN E [facility] Jan 05, 2025 01:58 PM AMBULATORY - MEDICINE [facility] Jan 06, 2025 03:00 PM AMBULATORY - REHAB MEDICIN E [facility] Jan 10, 2025 09:00 AM AMBULATORY - REHAB MEDICIN E [facility] Jan 16, 2025 10:00 AM AMBULATORY - REHAB MEDICIN E [facility] Jan 18, 2025 09:00 AM AMBULATORY - REHAB MEDICIN [facility] Jan 23, 2025 09:00 AM AMBULATORY - REHAB MEDICIN [facility] Jan 25, 2025 09:00 AM AMBULATORY - REHAB MEDICIN [facility] February 21, 2025 10:00 AM AMBULATORY - NONE [facility] February 21, 2025 11:00 AM AMBULATORY - MEDICINE [facility] February 28, 2025 01:00 PM AMBULATORY - REHAB MEDICIN [facility] March 14, 2025 02:00 PM AMBULATORY - REHAB MEDICIN [facility] Apr 28, 2025 09:30 AM AMBULATORY - SURGERY [facility] Active, Pending, and Scheduled Orders This section includes a listing of several types of active, pending, and scheduled orders, including clinic medications orders, diagnostic test orders, procedure orders and consult orders; where the start date of the order is 45 days before the date of the Encounter or 45 days after the date of theEncounter. The data comes from all [place] treatment [facility]. Test Date/Time Test Type Test Details Facility Name Oct 25, 2024 12:00 AM Laboratory - Chemistry Order CBC & DIFF BLOOD ONCO SP ONCE [facility] Nov 25, 2024 10:22 AM Consult Order OT OCCUPATIONAL THERAPY OUTPT VISION THERAPY Cons Grocery Clerk [employer] [facility] Nov 30, 2024 12:00 AM Laboratory - Chemistry Order CBC BLOOD STAT SP ONCE [facility] Nov 30, 2024 12:00 AM Laboratory - Chemistry Order PROTHROMBIN TIME/INR PLASMA STAT SP [facility] Nov 30, 2024 12:00 AM Laboratory - Chemistry Order CREATININE(INCLUDES EGFR) PLASMA STAT SP ONCE [facility] Dec 01, 2024 11:53 AM Consult Order CSP PCAFC FUNCTIONAL ASSESSMENT INSTRUMENT OUTPT Cons Grocery Clerk [employer] [facility] Jan 03, 2025 12:08 PM Consult Order OT OCCUPATIONAL THERAPY OUTPT HOME ACCESSIBILITY Cons Grocery Clerk [employer] [facility] Jan 05, 2025 03:02 PM Consult Order ENT OUTPT Cons Grocery Clerk [facility] Lab Results: +/- 30 days of the [...] Range Comment Dec 09, 2024 08:34 AM [facility] PROTHROMBIN TIME/INR Specimen Type: PLASMA No comment entered. Ordering Provider: FORD FRANCOIS Report Released Date/Time: Dec 06, 2024 09:29 AM Reporting Lab: [facility] [id number] Performing Lab: [facility] [id number] .INR 1.1 0.8-1.1 .PT 12.9 s H 9.4-12.5 Dec 09, 2024 08:34 AM [facility] CREATININE(INCLUDES EGFR) Specimen Type: PLASMA No comment entered. Ordering Provider: FORD FRANCOIS Report Released Date/Time: Dec 06, 2024 09:29 AM Reporting Lab: [facility] [phone] Performing Lab: [facility] [phone] CREATININE 0.6 mg/dL 0.5-1.0 .CREAT EGFR(CKD-EPI) >90 >60 Dec 09, 2024 08:34 AM [facility] CBC & DIFF Specimen Type: BLOOD Comment: Automated Differential Performed Ordering Provider: FORD FRANCOIS Report Released Date/Time: Dec 06, 2024 09:29 AM Reporting Lab: [facility] [phone] Performing Lab: [facility] [phone] WBC 4.4 4.0-11.0 RBC 4.42 4.00-5.40 HGB [...] EOS 0.1 0.0-0.5 ABS BASO 0.0 0.0-0.2 IG(META,MYELO,P RO) 0.2 ABS IMMATURE GRAN 0.0 0.0-0.1 Nov 22, 2024 09:45 AM [facility] LD,TOTAL Specimen Type: PLASMA No comment entered. Ordering Provider: KURT NEWELL Report Released Date/Time: Apr 26, 2024 10:33 AM Reporting Lab: [facility] [id number] Performing Lab: [facility] [phone] LD,TOTAL 194 U/L 125-220 Nov 22, 2024 09:45 AM [facility] URIC ACID Specimen Type: PLASMA No comment entered. Ordering Provider: KURT NEWELL Report Released Date/Time: Apr 26, 2024 10:33 AM Reporting Lab: [facility] [id number] Performing Lab: [facility] [phone] URIC ACID 5.4 mg/dL 2.5-6.2 Nov 22, 2024 09:45 AM [facility] COMPREHENSIVE METABOLIC PANEL+MG Specimen Type: PLASMA No comment entered. Ordering Provider: KURT NEWELL Report Released Date/Time: Apr 26, 2024 10:33 AM Reporting Lab: [facility] [phone] Performing Lab: [facility] [phone] CREATININE 0.6 mg/dL 0.5-1.0 UREA NITROGEN 12 [...] >90 >60 Nov 22, 2024 09:44 AM [facility] CBC & DIFF Specimen Type: BLOOD Comment: Automated Differential Performed Ordering Provider: KURT NEWELL Report Released Date/Time: Oct 25, 2024 10:32 AM Reporting Lab: [facility] [phone] Performing Lab: [facility] [phone] WBC 5.4 4.0-11.0 RBC 4.58 4.00-5.40 HGB [...] EOS 0.1 0.0-0.5 ABS BASO 0.0 0.0-0.2 IG(META,MYELO,P RO) 0.2 ABS IMMATURE GRAN 0.0 0.0-0.1 Nov 15, 2024 12:58 PM [facility] FINGERSTICK GLUCOSE Specimen Type: BLOOD Comment: Save Result Ordering Provider: LISANDRA SEAY Report Released Date/Time: Nov 17, 2024 07:56 AM Reporting Lab: [facility] [phone] Performing Lab: [facility] [phone] FINGERSTICK GLUCOSE 87 mg/dL 70-100 Vital Signs: All taken on the encounter date This section contains inpatient and outpatient Vital Signs collected on the date of the Encounter. Date/Time Temperature Pulse Blood Pressure Respiratory Rate SP02 Pain Height Weight Body Mass Index Source Dec 09, 2024 10:52 AM 69 124/79 [facility] Dec 09, 2024 10:37 AM 72 113/73 [facility] Dec 09, 2024 10:22 AM 70 98 [facility] Dec 09, 2024 10:22 AM 98.5 66 117/80 98 [facility] Social History: Smoking Status (Most current) and Tobacco Use (All prior to encounter date) This section includes the most current, and the historical, smoking and tobacco- related health factors from the [facility] where the Encounter took place. Current Smoking Status This section includes the most current smoking, or tobacco-related health factor, from the [place] facility where the Encounter took place. Date/Time Current Smoking Status Comment Srini ity Nov 27, 2023 03:30 PM VA-TOBACCO FORMER USER [facility] Tobacco Use History This section includes a history of the smoking, or tobacco-related health factors, that were collected on or before the date of the Encounter. The data comes from the [place] facility where the Encounter took place. Date/Time Smoking Status/Tobacco Use Comment F acility Nov 27, 2023 03:30 PM VA-TOBACCO QUIT 5 TO < 15 YRS [facility] Jan 14, 2023 09:03 AM VA-TOBACCO FORMER USER [facility] Jan 14, 2023 09:03 AM VA-TOBACCO QUIT 5 TO < 15 YRS [facility] Radiology Reports: +/- 30 days of [...] 2024 07:03 AM MRI-BRAIN (P): AWAIS PADILLA [id number] -1990 F Exm Date: DEC 16, 2024@07:03 Req Phys: STEPHEN FRANCOIS Loc: [facility] NEUROSURG LD TEACHER CONSULT-A (Re Img Loc: MRI IMAGING Service: Unknown Screen: [place] [address] (Case [id number] COMPLETE) MRI BRAIN/BRAINSTEM W/O CONTRAST (MRI Detailed) CPT:72101 Reason for Study: Myelopathy Clinical History: Did the ordering provider speak with a protection consultant regarding this imaging exam?No Brain MRI without contrast Myelopathy LAST CREATININE 0.6 (11/22/24) Allergies: METOPROLOL (Jan 14, 2023) REGLAN (Jan 14, 2023) My pager number on record is: [phone]. The pager number/cell phone number above is [...] 16, 2024 Date Verified: DEC 16, 2024 Application Developer E-Sig:/ES/SUJIT DENIS MD Report: MRI BRAIN/BRAINSTEM W/O [...] Primary Interpreting Staff: SUJIT DENIS MD, RADIOLOGIST (Application Developer) /[facility] SUJIT DENSI [facility] Dec 09, 2024 09:[address] MYELOGRAM THORA CIC (P): VALERIEARMENADRIEN SALVADOR [id number] -1990 F Exm Date: DEC 09, 2024@09:52 Req Phys: STEPHEN FRANCIOS Loc: [facility] NEUROS[facility]G LD TEACHER CONSULT-A (Re Img Loc: CT IMAGING Service: Unknown Screen: [place] [address] (Case [id number] COMPLETE) CT MYELOGRAM THORACIC SPINE (CT Detailed) CPT:64963 CPT Modifiers : 59 DISTINCT PROCEDURAL SERVICE [...] PLASMA .CREAT EGFR(CKD-E >90 Ref: >=60 Allergies: ([place] only) METOPROLOL (Jan 14, 2023) REGLAN (Jan 14, 2023) Defer to radiologist for final CT protocol. User Placing Order: STEPHEN FRANCOIS Nikita - Office Phone: My pager number on record is: [phone]. The pager number/cell phone number above is NOT correct for reporting critical results, I have entered my correct number below: My correct contact # for critial results is:neurosurgery operations general agent Trainees only: Enter your staff provider's info here: Per Joint Commission Standards, by signing this diagnostic imaging request the ordering provider confirms they have considered patients age and recent imaging history. Report Status: Verified Date Reported: DEC 09, 2024 Date Verified: DEC 09, 2024 Application Developer E-Sig:/ES/CARITO POLANCO MD Report: CT Thoracic Spine [...] Primary Interpreting Staff: CARITO POLANCO MD, RADIOLOGIST (Application Developer) /CARITO TOLENTINO [facility] Dec 09, 2024 08:50 AM MYELOGRAM THORACIC (P): AWAIS PADILLA [id number] -1990 F Exm Date: DEC 09, 2024@08:50 Req Phys: STEPHEN FRANCOIS Loc: [facility] NEUROSURG LD TEACHER CONSULT-A (Re Img Loc: MAIN X-RAY Service: Unknown Screen: [place] [address] (Case [id number] COMPLETE) MYELOGRAM THORACIC VIA LUMBAR INJ(RAD Detailed) CPT:40394 Reason for Study: Eval for arachnoid web or cyst at T6 level Clinical History: myelopathy Outside hosptial Thoracic mri w wo contrast is loaded into [facility]. Please do comparison . thank you Responsible provider name and phone number to notify for critical findings if other than user placing the order and pager listed below: User placing orders pager: [phone] Neurosurgery operations general agent LAST CREATININE 0.6 (11/22/24) Report Status: Verified Date Reported: DEC 09, 2024 Date Verified: DEC 09, 2024 Application Developer E-Sig:/ES/CARITO POLANCO MD Report: PROCEDURE: Lumbar puncture with fluoroscopic guidance. Thoracic myelogram. History: Myelopathy. Thoracic MRI shows dorsal lesion at T6. Comparison: Outside recent thoracic MRI exam from the [facility]. Fluoro time: 0.8 minute Dose: Air Kerma: 3.9, mGy, DAP: 3.54, dGy.cm? PROCEDURE: The patient/medical decision-maker understood the limitations, alternatives, and risks of the procedure and requested the procedure be performed. Both iMed and oral consent were obtained. A pre-procedural Time-Out was performed per [facility] policy. The patient was [...] placed in CPRS. I also called ALYSIA Mccray in the Short Stay Unit for handoff communication/instructions . Impression: Successful lumbar puncture with thoracic myelography. Report Sign Date/Time: 12/09/2024 10:38 AM Primary Interpreting Staff: CARITO POLANCO MD, RADIOLOGIST (Application Developer) /CARITO TOLENTINO [facility] Nov 22, 2024 07:12 PM NON [place] MRI THORACI C SPINE: AWAIS PADILLA [id number] -1990 F Exm Date: NOV 22, 2024@19:12 Req Phys: MARÍA SEAY Loc: [facility] XRAY GENERAL AM (Req'g Loc Img Loc: OUTSOURCE MRI Service: Unknown Screen: Patient answered no (Case [id number] COMPLETE) NON [place] MRI THORACIC SPINE (MRI Detailed) CPT:07395 Reason for Study: OUTSIDE STUDY Clinical History: [...] Diagnostic Code: VERIFIED BY: / *ELECTRONICALLY FILED* [facility] Nov 15, 2024 12:[address] BODY W/O CO NTRAST (P): AWAIS PADILLA [id number] -1990 F Exm Date: NOV 15, 2024@12:39 Req Phys: KURT NEWELL Pat Loc: [facility] ONC OSIRIS (Req'g Loc) Img Loc: NUC MED Service: Unknown Screen: [place] [address] (Case [id number] COMPLETE) SKULL-THIGH PET IMAGE W/CT (NM Detailed) CPT:42844 Reason for Study: Evaluation for malignacy (Case [...] pager listed below: User placing orders pager: [phone] LAST CREATININE 0.6 (07/24/24) Report Status: Verified Date Reported: NOV 15, 2024 Date Verified: NOV 15, 2024 Application Developer E-Sig:/ES/CAIN SMART MD Report: PET/CT SCAN INDICATION: [...] Staff: CAIN SMART MD, RADIOLOGY STAFF PHYSICIAN (Application Developer) /CAIN CR [facility] Nov 10, 2024 10:23 AM [facility] MRI THORACI C SPINE: AWAIS PADILLA [id number] -1990 F Exm Date: NOV 10, 2024@10:23 Req Phys: MARÍA SEAY Pat Loc: [facility] XRAY GENERAL AM (Req'g Loc Img Loc: OUTSOURCE MRI Service: Unknown Screen: Patient answered no (Case [id number] COMPLETE) NON [place] MRI THORACIC SPINE (MRI Detailed) CPT:23996 Reason for Study: OUTSIDE STUDY Clinical History: [...] Diagnostic Code: VERIFIED BY: / *ELECTRONICALLY FILED* [facility] Nov 10, 2024 10:03 AM NON [place] CERVICA L SPINE: AWAIS PADILLA [id number] -1990 F Exm Date: NOV 10, 2024@10:03 Req Phys: MARÍA SEAY Loc: [facility] XRAY GENERAL AM (Req'g Loc Img Loc: OUTSOURCE MRI Service: Unknown Screen: Patient answered no (Case [id number] COMPLETE) NON [place] MRI CERVICAL SPINE (MRI Detailed) CPT:66461 Reason for Study: OUTSIDE STUDY Clinical History: [...] Diagnostic Code: VERIFIED BY: / *ELECTRONICALLY FILED* [facility] Nov 10, 2024 09:46 AM NON [place] MRI LUMBAR SPINE: AWAIS PADILLA [id number] -1990 F Exm Date: NOV 10, 2024@09:46 Req Phys: MARÍA SEAY Loc: [facility] XRAY GENERAL AM (Req'g Loc Img Loc: OUTSOURCE MRI Service: Unknown Screen: Patient answered no (Case [id number] COMPLETE) NON [place] MRI LUMBAR SPINE (MRI Detailed) CPT:10338 Reason for Study: OUTSIDE STUDY Clinical History: [...] Diagnostic Code: VERIFIED BY: / *ELECTRONICALLY FILED* [facility] Encounter Notes: All associated encounter notes This section contains the clinical notes associated to the Encounter. Date/Time Encounter Note(s) Provider Source Dec 09, 2024 12:25 PM TELEPHONE ENCOUNTE R NOTE: LOCAL TITLE: TELEPHONE CARE PROVIDER NOTE STANDARD TITLE: TELEPHONE ENCOUNTER NOTE DATE OF NOTE: DEC 09, 2024@12:25 ENTRY DATE: DEC 09, 2024@12:25:31 AUTHOR: STEPHEN FRANCOIS EXP COSIGNER: URGENCY: STATUS: COMPLETED Quang Mccray RN reached out reporting came to 2L after her myelogram, and she would like something for her back pain. The fluoro doctor ordered tylenol, but she has tylenol and Ibuprofen and she would like something else. Nurse reported she had reached out to her PCP and Pain service about concern and was told would need to reach out to Neurosurgery. Neurosurgery prescribes pain medication after surgery , if she is not able to get additional pain medication from the other two services or the proceduralist, she would need to go to the ED. /es/ STEPHEN FRANCOIS NP Signed: 12/09/2024 12:28 Receipt Acknowledged By: 12/09/2024 13:18 /es/ ADELINE MINAYA MD PHYSICIAN * AWAITING SIGNATURE * QUANG MCCRAY 12/09/2024 14:41 /los/ Mraía Seay PA-C Physician Boarder Hand STEPHEN FRANCOIS [facility]
--- OUTSIDE RECORDS SUMMARY | 2025-01-11 10:07 | XMS_ITS | Encounter Summary ---
Author Name [facility] Organization [facility] Address [address] [place] [address] Care Team Providers Care Pathology Assistant Name Role Phone LONA CINDY Primary Care Provider Unavail able Selected Encounter This section includes the information on record at [place] for the Encounter. Date/Time Encounter Type Encounter Description Reason Pro vider Source Dec 09, 2024 10:45 AM Outpatient Encounter SURGICAL PROCEDURE UNIT [facility] Encounter Template Text not used by [place] Plan of Treatment: Future Appointments (+ 6 months) and Future Tests (+/- 45 days) The Plan of Treatment section includes future care activities for the patient from all [place] treatmentfacilities. This section includes future appointments and future orders which are active, pending or scheduled. Future Appointments This section includes appointments that were scheduled to occur 6 months from the date of the Encounter, up to a maximum of 20 appointments. The data comes from all [place] treatment facilities. Appointment Date/Time Appointment Type Appointme nt Facility Name Dec 13, 2024 01:00 PM AMBULATORY - REHAB MEDICIN [facility] Dec 16, 2024 07:00 AM AMBULATORY - NONE [facility] Dec 21, 2024 10:00 AM AMBULATORY - REHAB MEDICIN [facility] Dec 22, 2024 11:00 AM [facility] Dec 23, 2024 08:00 AM AMBULATORY - REHAB MEDICIN E [facility] Dec 28, 2024 01:00 PM AMBULATORY - REHAB MEDICIN E [facility] Dec 29, 2024 10:00 AM AMBULATORY - REHAB MEDICIN E [facility] Jan 02, 2025 08:30 AM AMBULATORY - REHAB MEDICIN E [facility] Jan 05, 2025 01:58 PM AMBULATORY - MEDICINE [facility] Jan 06, 2025 03:00 PM AMBULATORY - REHAB MEDICIN E [facility] Jan 10, 2025 09:00 AM AMBULATORY - REHAB MEDICIN E [facility] Jan 16, 2025 10:00 AM AMBULATORY - REHAB MEDICIN E [facility] Jan 18, 2025 09:00 AM AMBULATORY - REHAB MEDICIN [facility] Jan 23, 2025 09:00 AM AMBULATORY - REHAB MEDICIN [facility] Jan 25, 2025 09:00 AM AMBULATORY - REHAB MEDICIN [facility] February 21, 2025 10:00 AM AMBULATORY - NONE [facility] February 21, 2025 11:00 AM AMBULATORY - MEDICINE [facility] February 28, 2025 01:00 PM AMBULATORY - REHAB MEDICIN [facility] March 14, 2025 02:00 PM AMBULATORY - REHAB MEDICIN [facility] Apr 28, 2025 09:30 AM AMBULATORY - SURGERY [facility] Active, Pending, and Scheduled Orders This section includes a listing of several types of active, pending, and scheduled orders, including clinic medications orders, diagnostic test orders, procedure orders and consult orders; where the start date of the order is 45 days before the date of the Encounter or 45 days after the date of theEncounter. The data comes from all [place] treatment [facility]. Test Date/Time Test Type Test Details Facility Name Oct 25, 2024 12:00 AM Laboratory - Chemistry Order CBC & DIFF BLOOD ONCO SP ONCE [facility] Nov 25, 2024 10:22 AM Consult Order OT OCCUPATIONAL THERAPY OUTPT VISION THERAPY Cons Wireworker Supervisor's Choice [facility] Nov 30, 2024 12:00 AM Laboratory - Chemistry Order CBC BLOOD STAT SP ONCE [facility] Nov 30, 2024 12:00 AM Laboratory - Chemistry Order CREATININE(INCLUDES EGFR) PLASMA STAT SP ONCE [facility] Nov 30, 2024 12:00 AM Laboratory - Chemistry Order PROTHROMBIN TIME/INR PLASMA STAT SP [facility] Dec 01, 2024 11:53 AM Consult Order CSP PCAFC FUNCTIONAL ASSESSMENT INSTRUMENT OUTPT Cons Wireworker Supervisor's Choice [facility] Jan 03, 2025 12:08 PM Consult Order OT OCCUPATIONAL THERAPY OUTPT HOME ACCESSIBILITY Cons Wireworker Supervisor's Choice [facility] Jan 05, 2025 03:02 PM Consult Order ENT OUTPT Cons Wireworker Supervisor's [facility] Lab Results: +/- 30 days of the [...] Range Comment Dec 09, 2024 08:34 AM [facility] PROTHROMBIN TIME/INR Specimen Type: PLASMA No comment entered. Ordering Provider: FORD FRANCOIS Report Released Date/Time: Dec 06, 2024 09:29 AM Reporting Lab: [facility] [id number] Performing Lab: [facility] [id number] .INR 1.1 0.8-1.1 .PT 12.9 s H 9.4-12.5 Dec 09, 2024 08:34 AM [facility] CREATININE(INCLUDES EGFR) Specimen Type: PLASMA No comment entered. Ordering Provider: FORD FRANCOIS Report Released Date/Time: Dec 06, 2024 09:29 AM Reporting Lab: [facility] [id number] Performing Lab: [facility] [address] CREATININE 0.6 mg/dL 0.5-1.0 .CREAT EGFR(CKD-EPI) >90 >60 Dec 09, 2024 08:34 AM [facility] CBC & DIFF Specimen Type: BLOOD Comment: Automated Differential Performed Ordering Provider: FORD FRANCOIS Report Released Date/Time: Dec 06, 2024 09:29 AM Reporting Lab: [facility] [id number] Performing Lab: [facility] [address] WBC 4.4 4.0-11.0 RBC 4.42 4.00-5.40 HGB [...] 0.0 0.0-0.1 Nov 22, 2024 09:45 AM [facility] URIC ACID Specimen Type: PLASMA No comment entered. Ordering Provider: KURT NEWELL Report Released Date/Time: Apr 26, 2024 10:33 AM Reporting Lab: [facility] [id number] Performing Lab: [facility] [address] URIC ACID 5.4 mg/dL 2.5-6.2 Nov 22, 2024 09:45 AM [facility] LD,TOTAL Specimen Type: PLASMA No comment entered. Ordering Provider: KURT NEWELL Report Released Date/Time: Apr 26, 2024 10:33 AM Reporting Lab: [facility] [address] Performing Lab: [facility] [address] LD,TOTAL 194 U/L 125-220 Nov 22, 2024 09:45 AM [facility] COMPREHENSIVE METABOLIC PANEL+MG Specimen Type: PLASMA No comment entered. Ordering Provider: KURT NEWELL Report Released Date/Time: Apr 26, 2024 10:33 AM Reporting Lab: [facility] [address] Performing Lab: [facility] [address] CREATININE 0.6 mg/dL 0.5-1.0 UREA NITROGEN 12 [...] >90 >60 Nov 22, 2024 09:44 AM [facility] CBC & DIFF Specimen Type: BLOOD Comment: Automated Differential Performed Ordering Provider: KURT NEWELL Report Released Date/Time: Oct 25, 2024 10:32 AM Reporting Lab: [facility] [address] Performing Lab: [facility] [address] WBC 5.4 4.0-11.0 RBC 4.58 4.00-5.40 HGB [...] 0.0 0.0-0.1 Nov 15, 2024 12:58 PM [facility] FINGERSTICK GLUCOSE Specimen Type: BLOOD Comment: Save Result Ordering Provider: LISANDRA ZAMORANO Report Released Date/Time: Nov 17, 2024 07:56 AM Reporting Lab: [facility] [phone] Performing Lab: [facility] [address] FINGERSTICK GLUCOSE 87 mg/dL 70-100 Vital Signs: All taken on the encounter date This section contains inpatient and outpatient Vital Signs collected on the date of the Encounter. Date/Time Temperature Pulse Blood Pressure Respiratory Rate SP02 Pain Height Weight Body Mass Index Source Dec 09, 2024 10:52 AM 69 124/79 [facility] Dec 09, 2024 10:37 AM 72 113/73 [facility] Dec 09, 2024 10:22 AM 70 98 [facility] Dec 09, 2024 10:22 AM 98.5 66 117/80 98 [facility] Social History: Smoking Status (Most current) and Tobacco Use (All prior to encounter date) This section includes the most current, and the historical, smoking and tobacco- related health factors from the [facility] where the Encounter took place. Current Smoking Status This section includes the most current smoking, or tobacco-related health factor, from the [place] facility where the Encounter took place. Date/Time Current Smoking Status Comment Srini zaldivar Nov 27, 2023 03:30 PM [place]-TOBACCO QUIT 5 TO < 15 YRS [facility] Tobacco Use History This section includes a history of the smoking, or tobacco-related health factors, that were collected on or before the date of the Encounter. The data comes from the [place] facility where the Encounter took place. Date/Time Smoking Status/Tobacco Use Comment F acdarline Nov 27, 2023 03:30 PM VA-TOBACCO QUIT 5 TO < 15 YRS [facility] Jan 14, 2023 09:03 AM VA-TOBACCO FORMER USER [facility] Jan 14, 2023 09:03 AM VA-TOBACCO QUIT 5 TO < 15 YRS [facility] Radiology Reports: +/- 30 days of [...] Dec 16, 2024 07:03 AM MRI-BRAIN (P): AWASI PADILLA [id number] -1990 F Exm Date: DEC 16, 2024@07:03 Req Phys: STEPHEN FRANCOIS Loc: [facility] NEUROSURG DIRECTOR PHONE CONSULT-A (Re Img Loc: MRI IMAGING Service: Unknown Screen: [place] [address] (Case [id number] COMPLETE) MRI BRAIN/BRAINSTEM W/O CONTRAST (MRI Detailed) CPT:68465 Reason for Study: Myelopathy Clinical History: Did the ordering provider speak with a internal control consultant regarding this imaging exam?No Brain MRI without contrast Myelopathy LAST CREATININE 0.6 (11/22/24) Allergies: METOPROLOL (Jan 14, 2023) REGLAN (Jan 14, 2023) My pager number on record is: [phone]. The pager number/cell phone number above is [...] 16, 2024 Date Verified: DEC 16, 2024 Client Support Representative E-Sig:/ES/SUJIT DENIS MD Report: MRI BRAIN/BRAINSTEM W/O [...] Primary Interpreting Staff: SUJIT DENIS MD, RADIOLOGIST (Client Support Representative) /[facility] SUJIT DENIS [facility] Dec 09, 2024 09:[address] MYELOGRAM THORA CIC (P): AWAIS PADILLA [id number] -1990 F Exm Date: DEC 09, 2024@09:52 Req Phys: STEPHEN FRANCOIS Loc: [facility] NEUROSURG DIRECTOR PHONE CONSULT-A (Re Img Loc: CT IMAGING Service: Unknown Screen: Patient answered no [place], [place] [address] (Case [id number] COMPLETE) CT MYELOGRAM THORACIC SPINE (CT Detailed) CPT:03262 CPT Modifiers : 59 DISTINCT PROCEDURAL SERVICE [...] PLASMA .CREAT EGFR(CKD-E >90 Ref: >=60 Allergies: ([place] only) METOPROLOL (Jan 14, 2023) REGLAN (Jan 14, 2023) Defer to radiologist for final CT protocol. User Placing Order: STEPHEN FRANCOIS L - Office Phone: My pager number on record is: [phone]. The pager number/cell phone number above is NOT correct for reporting critical results, I have entered my correct number below: My correct contact # for critial results is:neurosurgery manager instrumentation Trainees only: Enter your staff provider's info here: Per Joint Commission Standards, by signing this diagnostic imaging request the ordering provider confirms they have considered patients age and recent imaging history. Report Status: Verified Date Reported: DEC 09, 2024 Date Verified: DEC 09, 2024 Client Support Representative E-Sig:/ES/CARITO POLANCO MD Report: CT Thoracic Spine [...] Primary Interpreting Staff: CARITO POLANCO MD, RADIOLOGIST (Client Support Representative) /CARITO TOLENTINO [facility] Dec 09, 2024 08:50 AM MYELOGRAM THORACIC (P): AWAIS PADILLA [id number] -1990 F Exm Date: DEC 09, 2024@08:50 Req Phys: STEPHEN FRANCOIS Loc: [facility] NEUROSURG DIRECTOR PHONE CONSULT-A (Re Img Loc: MAIN X-RAY Service: Unknown Screen: [place] [address] (Case [id number] COMPLETE) MYELOGRAM THORACIC VIA LUMBAR INJ(RAD Detailed) CPT:77056 Reason for Study: Eval for arachnoid web or cyst at T6 level Clinical History: myelopathy Outside hosptial Thoracic mri w wo contrast is loaded into [facility]. Please do comparison . thank you Responsible provider name and phone number to notify for critical findings if other than user placing the order and pager listed below: User placing orders pager: [phone] Neurosurgery manager instrumentation LAST CREATININE 0.6 (11/22/24) Report Status: Verified Date Reported: DEC 09, 2024 Date Verified: DEC 09, 2024 Client Support Representative E-Sig:/ES/CARITO POLANCO MD Report: PROCEDURE: Lumbar puncture with fluoroscopic guidance. Thoracic myelogram. History: Myelopathy. Thoracic MRI shows dorsal lesion at T6. Comparison: Outside recent thoracic MRI exam from the [facility]. Fluoro time: 0.8 minute Dose: Air [...] Primary Interpreting Staff: CARITO POLANCO MD, RADIOLOGIST (Client Support Representative) /CARITO TOLENTINO [facility] Nov 22, 2024 07:12 PM NON HI MRI THORACI C SPINE: AWAIS PADILLA [id number] -1990 F Exm Date: NOV 22, 2024@19:12 Req Phys: CINDY ZAMORANO Loc: [facility] XRAY GENERAL AM (Req'g Loc Img Loc: OUTSOURCE MRI Service: Unknown Screen: Patient answered no (Case [id number] COMPLETE) NON [place] MRI THORACIC SPINE (MRI Detailed) CPT:44760 Reason for Study: OUTSIDE STUDY Clinical History: [...] Diagnostic Code: VERIFIED BY: / *ELECTRONICALLY FILED* [facility] Nov 15, 2024 12:[address] BODY W/O CO NTRAST (P): AWAIS PADILLA [id number] -1990 F Exm Date: NOV 15, 2024@12:39 Req Phys: KURT NEWELL Pat Loc: [facility] ONC SCARIA (Req'g Loc) Img Loc: NUC MED Service: Unknown [place]: [place] [address] (Case [id number] COMPLETE) SKULL-THIGH PET IMAGE W/CT (NM Detailed) CPT:33668 Reason for Study: Evaluation for malignacy (Case [...] pager listed below: User placing orders pager: [phone] LAST CREATININE 0.6 (07/24/24) Report Status: Verified Date Reported: NOV 15, 2024 Date Verified: NOV 15, 2024 Client Support Representative E-Sig:/ES/CAIN SMART MD Report: PET/CT SCAN INDICATION: [...] Staff: CAIN SMART MD, RADIOLOGY STAFF PHYSICIAN (Client Support Representative) /CAIN CR [facility] Nov 10, 2024 10:23 AM [facility] MRI THORACI C SPINE: PADILLA,ARMENADRIEN GRIMME [id number] -1990 F Exm Date: NOV 10, 2024@10:23 Req Phys: CINDY ZAMORANO Pat Loc: [facility] XRAY GENERAL AM (Req'g Loc Img Loc: OUTSOURCE MRI Service: Unknown Screen: Patient answered no (Case [id number] COMPLETE) NON [place] MRI THORACIC SPINE (MRI Detailed) CPT:67886 Reason for Study: OUTSIDE STUDY Clinical History: [...] Diagnostic Code: VERIFIED BY: / *ELECTRONICALLY FILED* [facility] Nov 10, 2024 10:03 AM NON [facility] MRI CERVICA L SPINE: AWAIS PADILLA [id number] -1990 F Exm Date: NOV 10, 2024@10:03 Req Phys: CINDY ZAMORANO Loc: [facility] XRAY GENERAL AM (Req'g Loc Img Loc: OUTSOURCE MRI Service: Unknown Screen: Patient answered no (Case [id number] COMPLETE) NON [place] MRI CERVICAL SPINE (MRI Detailed) CPT:19359 Reason for Study: OUTSIDE STUDY Clinical History: [...] Diagnostic Code: VERIFIED BY: / *ELECTRONICALLY FILED* [facility] Nov 10, 2024 09:46 AM NON [place] MRI LUMBAR SPINE: AWAIS PADILLA [id number] -1990 F Exm Date: NOV 10, 2024@09:46 Req Phys: CINDY ZAMORANO Loc: [facility] XRAY GENERAL AM (Req'g Loc Img Loc: OUTSOURCE MRI Service: Unknown Screen: Patient answered no (Case [id number] COMPLETE) NON [place] MRI LUMBAR SPINE (MRI Detailed) CPT:74411 Reason for Study: OUTSIDE STUDY Clinical History: [...] Diagnostic Code: VERIFIED BY: / *ELECTRONICALLY FILED* [facility] Encounter Notes: All associated encounter notes This section contains the clinical notes associated to the Encounter. Date/Time Encounter Note(s) Provider Source Dec 09, 2024 11:24 AM NURSING OUTPATIENT NOTE: LOCAL TITLE: NURSING SHORT STAY NOTE STANDARD TITLE: NURSING OUTPATIENT NOTE DATE OF NOTE: DEC 09, 2024@11:24 ENTRY DATE: DEC 09, 2024@11:24:26 AUTHOR: QUANG SANTO COSIGNER: URGENCY: STATUS: COMPLETED NURSING SHORT STAY NOTE [...] for 18 hours. Name of responsible person (pile driver operator/deburring machine operator) and phone number: Met 7. Neurology Chief Resident [phone] or Neurosurgery service [phone] to assess patient post-procedure before release. Met 8. Patient/Responsible person verbalizes understanding of release instructions. Met 9. Patient has received his/her personal belongings. Met 10. Patient to call phone number [phone] in case of questions or [phone] in case of emergency. Met Wristband Removal: [...] drive back home. The patient and this underwriter solicitation director reached out to neurosurgery separately via her [...] entrance to await her ride. /los/ QUANG SANTO, ALYSIA REGISTERED NURSE Signed: 12/09/2024 14:40 QUANG SANTO [facility]
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
[2025-01-11 10:08] VITALS: BP 129/85
--- OUTSIDE RECORDS SUMMARY | 2025-01-11 10:08 | XMS_ITS | Encounter Summary ---
Author Name [facility] Organization [facility] Address [address] [place] [address] Care Team Providers Care Valve Mechanic Name Role Phone CINDY ZAMORANO Primary Care Provider Unavail able Selected Encounter This section includes the information on record at [place] for the Encounter. 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 Date/Time Primary/Secondary Diagnosis Diagnosis Name Provider Source Jan 03, 2025 10:14 AM PRIMARY Myelopathy in diseases classified elsewhere IRVIN RASMUSSEN [facility] Jan 03, 2025 10:14 AM SECONDARY Personal history of traumatic brain injury [facility] Jan 03, 2025 10:14 AM SECONDARY Post-traumatic stress disorder, unspecified [facility] Jan 03, 2025 10:14 AM SECONDARY Unspecified abnormalities of gait and mobility [facility] Jan 03, 2025 10:14 AM SECONDARY Weakness IRVIN RASMUSSEN [facility] Plan of Treatment: Future Appointments (+ 6 months) and Future Tests (+/- 45 days) The Plan of Treatment section includes future care activities for the patient [facility] This section includes future appointments and future orders which are active, pending or scheduled. Future Appointments This section includes appointments that were scheduled to occur 6 months from the date of the Encounter, up to a maximum of 20 appointments. The data comes from all [facility]. Appointment Date/Time Appointment Type Appointme nt Facility Name Nov 30, 2024 11:00 AM AMBULATORY [place] [facility] Dec 02, 2024 08:00 AM AMBULATORY - REHAB MEDICIN E [facility] Dec 09, 2024 08:30 AM AMBULATORY - NONE [place] [facility] Dec 09, 2024 09:30 AM AMB[place]ORY - [place]ONE [place] [facility] Dec 09, 2024 10:30 AM AM[place]ORY - [place]ONE [place] [facility] Dec 09, 2024 10:45 AM [place] [facility] Dec 13, 2024 01:00 PM AMBULATORY - REHAB MEDICIN E [facility] Dec 16, 2024 07:00 AM AMBULATORY - NONE [place] [facility] Dec 21, 2024 10:00 AM AMBULATORY - REHAB MEDICIN E [facility] Dec 22, 2024 11:00 AM AMBULATORY - [...] 2025 01:58 PM AMBULATORY - [place]IC[place] [facility] Jan 06, 2025 03:00 PM AMBULATORY - REHAB MEDICIN E [facility] Jan 10, 2025 09:00 AM AMBULATORY - REHAB MEDICIN E [facility] Jan 16, 2025 10:00 AM AMBULATORY - REHAB MEDICIN E [facility] Jan 18, 2025 09:00 AM AMBULATORY - REHAB MEDICIN E [facility] Jan 23, 2025 09:00 AM AMBULATORY - REHAB MEDICIN E [facility] Active, Pending, and Scheduled Orders This section includes a listing of several types of active, pending, and scheduled orders, including clinic medications orders, diagnostic test orders, procedure orders and consult orders; where the start date of the order is 45 days before the date of the Encounter or 45 days after the date of theEncounter. The data comes from all [place] treatment facilities. Test Date/Time Test Type Test Details Facility Name Oct 25, 2024 12:00 AM Laboratory - Chemistry Order CBC & DIFF BLOOD ONCO SP ONCE [facility] Nov 25, 2024 10:22 AM Consult Order OT OCCUPATIONAL THERAPY OUTPT VISION THERAPY Cons [facility] Nov 30, 2024 12:00 AM Laboratory - Chemistry Order CBC BLOOD STAT SP ONCE [facility] Nov 30, 2024 12:00 AM Laboratory - Chemistry Order CREATININE(INCLUDES EGFR) PLASMA STAT SP ONCE [facility] Nov 30, 2024 12:00 AM Laboratory - Chemistry Order PROTHROMBIN TIME/INR PLASMA STAT SP [facility] Dec 01, 2024 11:53 AM Consult Order CSP PCAFC FUNCTIONAL ASSESSMENT INSTRUMENT OUTPT Cons [facility] Jan 03, 2025 12:08 PM Consult Order OT OCCUPATIONAL THERAPY OUTPT HOME ACCESSIBILITY Cons [facility] Jan 05, 2025 03:02 PM Consult Order ENT OUTPT Cons [facility] Lab Results: +/- 30 days of the encounter This section includes the Chemistry and Hematology Lab Results on record with [place] for the patient. Radiology Reports and Pathology Reports are provided separately, in subsequent sections. Lab Results This section contains the Chemistry/Hematology Results that were resulted 30 days before or 30 daysafter the date of the Encounter. Date/Time Source Result Type Result - Unit Interpretation Reference Range Comment Dec 09, 2024 08:34 AM [facility] PROTHROMBIN TIME/INR Specimen Type: PLASMA No comment entered. Ordering Provider: FORD FRANCOIS Report Released Date/Time: Dec 06, 2024 09:29 AM Reporting Lab: [facility] [id number] Performing Lab: [facility] [id number] .INR 1.1 0.8-1.1 .PT 12.9 s H 9.4-12.5 Dec 09, 2024 08:34 AM [facility] CREATININE(INCLUDES EGFR) Specimen Type: PLASMA No comment entered. Ordering Provider: FORD FRANCOIS Report Released Date/Time: Dec 06, 2024 09:29 AM Reporting Lab: [facility] [id number] Performing Lab: [facility] [address] CREATININE 0.6 mg/dL 0.5-1.0 .CREAT EGFR(CKD-EPI) >90 >60 Dec 09, 2024 08:34 AM [facility] CBC & DIFF Specimen Type: BLOOD Comment: Automated Differential Performed Ordering Provider: FORD FRANCOIS Report Released Date/Time: Dec 06, 2024 09:29 AM Reporting Lab: [facility] [phone] Performing Lab: [facility] [address] WBC 4.4 4.0-11.0 RBC 4.42 4.00-5.40 HGB [...] 2024 09:45 AM [facility] URIC ACID Specimen Type: PLASMA No comment entered. Ordering Provider: KURT NEWELL Report Released Date/Time: Apr 26, 2024 10:33 AM Reporting Lab: [facility] [address] Performing Lab: [facility] [address] URIC ACID 5.4 mg/dL 2.5-6.2 Nov 22, 2024 09:45 AM [facility] LD,TOTAL Specimen Type: PLASMA No comment entered. Ordering Provider: KURT NEWELL Report Released Date/Time: Apr 26, 2024 10:33 AM Reporting Lab: [facility] [address] Performing Lab: [facility] [address] LD,TOTAL 194 U/L 125-220 Nov 22, 2024 09:45 AM [facility] COMPREHENSIVE METABOLIC PANEL+MG Specimen Type: PLASMA No comment entered. Ordering Provider: KURT NEWELL Report Released Date/Time: Apr 26, 2024 10:33 AM Reporting Lab: [facility] [address] Performing Lab: [facility] [address] CREATININE 0.6 mg/dL 0.5-1.0 UREA NITROGEN 12 [...] 09:44 AM [facility] CBC & DIFF Specimen Type: BLOOD Comment: Automated Differential Performed Ordering Provider: KURT NEWELL Report Released Date/Time: Oct 25, 2024 10:32 AM Reporting Lab: [facility] [address] Performing Lab: [facility] [address] WBC 5.4 4.0-11.0 RBC 4.58 4.00-5.40 HGB [...] 2024 12:58 PM [facility] FINGERSTICK GLUCOSE Specimen Type: BLOOD Comment: Save Result Ordering Provider: LISANDRA ZAMORANO Report Released Date/Time: Nov 17, 2024 07:56 AM Reporting Lab: [facility] [phone] Performing Lab: [facility] [address] FINGERSTICK GLUCOSE 87 mg/dL 70-100 Vital Signs: All taken on the encounter date This section contains inpatient and outpatient Vital Signs collected on the date of the Encounter. Date/Time Temperature Pulse Blood Pressure Respiratory Rate SP02 Pain Height Weight Body Mass Index Source Nov 26, 2024 12:37 PM 74 146/88 16 74 [facility] Nov 26, 2024 09:38 AM 7 [facility] Nov 26, 2024 09:32 AM 73 136/91 16 98 7 [facility] Social History: Smoking Status (Most current) and Tobacco Use (All prior to encounter date) This section includes the most current, and the historical, smoking and tobacco- related health factors from the [facility] where the Encounter took place. Current [...] HEALTH Jan 14, 2023 09:03 AM VA-TOBACCO QUIT [...] 2024 07:03 AM MRI-BRAIN (P): AWAIS PADILLA [id number] -1990 F Exm Date: DEC 16, 2024@07:03 Req Phys: STEPHEN FRANCOIS Pat Loc: [facility] NEUROSURG MASTER OCEAN CONSULT-A (Re Img Loc: MRI IMAGING Service: Unknown Screen: [place] [address] (Case [id number] COMPLETE) MRI BRAIN/BRAINSTEM W/O CONTRAST (MRI Detailed) CPT:11221 Reason for Study: Myelopathy Clinical History: Did the ordering provider speak with a car sales consultant regarding this imaging exam?No Brain MRI without contrast Myelopathy LAST CREATININE 0.6 (11/22/24) Allergies: METOPROLOL (Jan 14, 2023) REGLAN (Jan 14, 2023) My pager number on record is: [phone]. The pager number/cell phone number above is [...] 16, 2024 Date Verified: DEC 16, 2024 Library Cataloging Technician E-Sig:/ES/SUJIT DENIS MD Report: MRI BRAIN/BRAINSTEM W/O [...] Primary Interpreting Staff: SUJIT DENIS MD, RADIOLOGIST (Library Cataloging Technician) /[facility] SUJIT DENIS [facility] Dec 09, 2024 09:[address] [facility] (P): AWAIS PADILLA [id number] -1990 F Exm Date: DEC 09, 2024@09:52 Req Phys: STEPHEN FRANCOIS Pat Loc: [facility] NEUROSURG MASTER OCEAN CONSULT-A (Re Img Loc: CT IMAGING Service: Unknown Screen: [place] [address] (Case [id number] COMPLETE) CT MYELOGRAM THORACIC SPINE (CT Detailed) CPT:07176 CPT Modifiers : 59 DISTINCT PROCEDURAL SERVICE [...] PLASMA .CREAT EGFR(CKD-E >90 Ref: >=60 Allergies: ([place] only) METOPROLOL (Jan 14, 2023) REGLAN (Jan 14, 2023) Defer to radiologist for final CT protocol. User Placing Order: STEPHEN FRANCOIS L - Office Phone: My pager number on record is: [phone]. 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 Report Status: Verified Date Reported: DEC 09, 2024 Date Verified: DEC 09, 2024 Library Cataloging Technician E-Sig:/ES/CARITO POLANCO MD Report: CT Thoracic Spine [...] Primary Interpreting Staff: CARITO POLANCO MD, RADIOLOGIST (Library Cataloging Technician) /CARITO TOLENTINO [facility] Dec 09, 2024 08:50 AM MYELOGRAM THORACIC (P): AWAIS PADILLA [id number] -1990 F Exm Date: DEC 09, 2024@08:50 Req Phys: STEPHEN FRANCOIS Pat Loc: [facility] NEUROSURG MASTER OCEAN CONSULT-A (Re Img Loc: MAIN X-RAY Service: Unknown Screen: [place] [address] (Case [id number] COMPLETE) MYELOGRAM THORACIC VIA LUMBAR INJ(RAD Detailed) CPT:54745 Reason for Study: Eval for arachnoid web or cyst at T6 level Clinical History: myelopathy Outside hosptial Thoracic mri w wo contrast is loaded into [facility]. Please do comparison . thank you Responsible provider name and phone number to notify for critical findings if other than user placing the order and pager listed below: User placing orders pager: [phone] Neurosurgery fabrication and assembly supervisor LAST CREATININE 0.6 (11/22/24) Report Status: Verified Date Reported: DEC 09, 2024 Date Verified: DEC 09, 2024 Library Cataloging Technician E-Sig:/LOS/CARITO POLANCO MD Report: PROCEDURE: Lumbar puncture with fluoroscopic guidance. Thoracic myelogram. History: Myelopathy. Thoracic MRI shows dorsal lesion at T6. Comparison: Outside recent thoracic MRI exam from the [facility]. Fluoro time: 0.8 minute Dose: Air Kerma: 3.9, mGy, DAP: 3.54, dGy.cm? PROCEDURE: The patient/medical decision-maker understood the limitations, alternatives, and risks of the procedure and requested the procedure be performed. Both iMed and oral consent were obtained. A pre-procedural Time-Out was performed per [facility] policy. The patient was prepped [...] CARITO POLANCO MD, RADIOLOGIST ([place]) /CARITO TOLENTINO [facility] Nov 22, 2024 07:12 PM NON VA MRI THORACI C SPINE: AWAIS PADILLA [id number] -1990 F Exm Date: NOV 22, 2024@19:12 Req Phys: CINDY ZAMORANO Loc: [facility] XRAY GENERAL AM (Req'g Loc Img Loc: OUTSOURCE MRI Service: Unknown Screen: Patient answered no (Case [id number] COMPLETE) NON VA MRI THORACIC SPINE (MRI Detailed) CPT:70279 Reason for Study: OUTSIDE STUDY Clinical History: OUTSIDE STUDY Report Status: Electronically Filed Date Reported: NOV 30, 2024 Report: This is an outside Imaging study and/or report imported for continuity of patient care. This Imaging study and/or report was not reviewed or verified by a [place] Radiologist. Impression: This is an outside Imaging study and/or report imported for continuity of patient care. This Imaging study and/or report was not reviewed or verified by a [place] Radiologist. Primary Diagnostic Code: VERIFIED BY: / *ELECTRONICALLY FILED* [facility] Nov 15, 2024 12:[address] BODY W/O CO NTRAST (P): VALERIEARMENADRIEN GRIMME [id number] -1990 F Exm Date: NOV 15, 2024@12:39 Req Phys: KURT NEWELL Pat Loc: [facility] ONC OSIRIS (Req'g Loc) Img Loc: NUC MED Service: Unknown Screen: [place] [address] (Case [id number] COMPLETE) SKULL-THIGH PET IMAGE W/CT (NM Detailed) CPT:09066 Reason for Study: Evaluation for malignacy (Case [...] pager listed below: User placing orders pager: [phone] LAST CREATININE 0.6 (07/24/24) Report Status: Verified Date Reported: NOV 15, 2024 Date Verified: NOV 15, 2024 Library Cataloging Technician E-Sig:/ES/CAIN SMART MD Report: PET/CT SCAN INDICATION: [...] Staff: CAIN SMART MD, RADIOLOGY STAFF PHYSICIAN (Library Cataloging Technician) /CA[facility] CR [facility] Nov 10, 2024 10:23 AM NON VA MRI THORACI C SPINE: AWAIS PADILLA [id number] -1990 F Exm Date: NOV 10, 2024@10:23 Req Phys: CINDY ZAMORANO Loc: [facility] XRAY GENERAL AM (Req'g Loc Img Loc: OUTSOURCE MRI Service: Unknown Screen: Patient answered no (Case [id number] COMPLETE) NON VA MRI THORACIC SPINE (MRI Detailed) CPT:31170 Reason for Study: OUTSIDE STUDY Clinical History: OUTSIDE STUDY Report Status: Electronically Filed Date Reported: NOV 30, 2024 Report: This is an outside Imaging study and/or report imported for continuity of patient care. This Imaging study and/or report was not reviewed or verified by a [place] Radiologist. Impression: This is an outside Imaging study and/or report imported for continuity of patient care. This Imaging study and/or report was not reviewed or verified by a [place] Radiologist. Primary Diagnostic Code: VERIFIED BY: / *ELECTRONICALLY FILED* [facility] Nov 10, 2024 10:03 AM NON VA MRI CERVICA L SPINE: AWAIS PADILLA [place] [id number] -1990 F Exm Date: NOV 10, 2024@10:03 Req Phys: CINDY ZAMORANO Loc: [facility] XRAY GENERAL AM (Req'g Loc Img Loc: OUTSOURCE MRI Service: Unknown Screen: Patient answered no (Case 1905 COMPLETE) NON VA MRI CERVICAL SPINE (MRI Detailed) CPT:90911 Reason for Study: OUTSIDE STUDY Clinical History: OUTSIDE STUDY Report Status: Electronically Filed Date Reported: NOV 30, 2024 Report: This is an outside Imaging study and/or report imported for continuity of patient care. This Imaging study and/or report was not reviewed or verified by a [place] Radiologist. Impression: This is an outside Imaging study and/or report imported for continuity of patient care. This Imaging study and/or report was not reviewed or verified by a [place] Radiologist. Primary Diagnostic Code: VERIFIED BY: / *ELECTRONICALLY FILED* [facility] Nov 10, 2024 09:46 AM NON VA MRI LUMBAR SPINE: AWAIS PADILLA [id number] 1990 F Exm Date: NOV 10, 2024@09:46 Req Phys: CINDY ZAMORANO Loc: [facility] XRAY GENERAL AM (Req'g Loc Img Loc: OUTSOURCE MRI Service: Unknown Screen: Patient answered no (Case 1891 COMPLETE) NON VA MRI LUMBAR SPINE (MRI Detailed) CPT:84605 Reason for Study: OUTSIDE STUDY Clinical History: OUTSIDE STUDY Report Status: Electronically Filed Date Reported: NOV 30, 2024 Report: This is an outside Imaging study and/or report imported for continuity of patient care. This Imaging study and/or report was not reviewed or verified by a [place] Radiologist. Impression: This is an outside Imaging study and/or report imported for continuity of patient care. This Imaging study and/or report was not reviewed or verified by a [place] Radiologist. Primary Diagnostic Code: VERIFIED BY: / [...] By: 11/28/2024 07:53 /los/ KEAGAN MASSEY RN, [facility] DEPARTMENT OF NEUROLOGY --- Original Document --- [...] 2-hour drive to our polytrauma appointment at [facility] for PT which she thinks has triggered [...] She was recently seen by neurologist at [facility] for the similar symptoms. She underwent MRI [...] endorses difficulty with ADLs like loading the iron pellet tester and cooking. Reports chronic back pain [...] rizatriptan. She follows [place] clinic at the [place] and reports intermittent blurry vision and drift [...] less than 60 - Maternal grandfather of [place] at 50 8. History of cerebrospinal fluid [...] BEDTIME ACTIVE 2) Non-VA ONDANSETRON TAB 4MG [id number] ACTIVE 7 Total Medications FAMILY HISTORY: Significant [...] Volume appropriate. Naming, repetition, comprehension all intact supervisor of guidance and testing II - No visual field deficit III/IV/ [...] for B12, copper, ceruloplasmin were ordered at [facility] neurology clinic and are pending. There [...] Recommend obtaining records and imaging, labs from [facility]. - Recommend follow-up with neurology outpatient. I have discussed the patient with my attending, Dr. Rasmussen, who agrees with the above assessment plan. Coretta Rivera Neurology Resident, PGY-2 [facility] /los/ CORETTA RIVERA Signed: 11/26/2024 16:23 Receipt Acknowledged By: * AWAITING SIGNATURE * JOVANI RASMUSSENMARY Lin 11/28/2024 ADDENDUM STATUS: UNSIGNED You may not VIEW this UNSIGNED Addendum. RASMUSSENIRVIN Lin [facility] Nov 26, 2024 03:10 PM NEUROLOGY CONSULT: LOCAL TITLE: NEUROLOGY CONSULT STANDARD TITLE: NEUROLOGY CONSULT DATE OF NOTE: NOV 26, 2024@15:10 ENTRY DATE: NOV 26, 2024@15:11:06 AUTHOR: CORETTA RIVERA COSIGNER: URGENCY: STATUS: COMPLETED NEUROLOGY CONSULT Has ADDENDA NEUROLOGY INPATIENT CONSULTATION HISTORY OF PRESENT ILLNESS ARMENADRIEN SAMI PADILLA is a 34yo FEMALE with PMH [...] 2-hour drive to our polytrauma appointment at [facility] for PT which she thinks has triggered [...] She was recently seen by neurologist at [facility] for the similar symptoms. She underwent MRI [...] endorses difficulty with ADLs like loading the iron pellet tester and cooking. Reports chronic back pain [...] rizatriptan. She [place] and reports intermittent blurry vision and drift [...] less than 60 - Maternal grandfather of [place] at 50 8. History of cerebrospinal fluid [...] BEDTIME ACTIVE 2) Non-VA ONDANSETRON TAB 4MG [id number] ACTIVE 7 Total Medications FAMILY HISTORY: Significant [...] Volume appropriate. Naming, repetition, comprehension all intact supervisor of guidance and testing II - No visual field deficit III/IV/ [...] for B12, copper, ceruloplasmin were ordered at [facility] neurology clinic and are pending. There [...] Recommend obtaining records and imaging, labs from [facility]. - Recommend follow-up with neurology outpatient. I have discussed the patient with my attending, Dr. Rasmussen, who agrees with the above assessment plan. Coretta Rivera Neurology Resident, PGY-2 [facility] /orestes RIVERA Signed: 11/26/2024 16:23 Receipt Acknowledged By: 11/28/2024 12:43 /orestes RASMUSSEN Physician 11/27/2024 ADDENDUM STATUS: COMPLETED NEUROLOGY [...] clinic in [address] Rivera. /orestes RASMUSSEN Physician Signed: 11/27/2024 08:22 Receipt Acknowledged By: 11/28/2024 07:53 /orestes MASSEY RN, [facility] DEPARTMENT OF NEUROLOGY 11/28/2024 ADDENDUM STATUS: COMPLETED RTC placed for neuro f/u in 2 weeks. I have asked the schedulers to assist in making appt. Note added to nsgy consult as above. Records/images requested from [facility] and [facility]. /orestes MASSEY RN, [facility] DEPARTMENT OF NEUROLOGY Signed: 11/28/2024 08:02 11/29/2024 ADDENDUM STATUS: COMPLETED Spoke with [facility]. Some lab results still pending. They will fax over what is available this morning and the rest once resulted. They are mailing a disc today of images. /orestes MASSEY RN, [facility] DEPARTMENT OF NEUROLOGY Signed: 11/29/2024 09:24 11/30/2024 ADDENDUM STATUS: COMPLETED Records recieved from [facility]. Copy to MD and HIMs for scanning. /orestes MASSEY RN, [facility] DEPARTMENT OF NEUROLOGY Signed: 11/30/2024 08:07 [facility]
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
--- OUTSIDE RECORDS SUMMARY | 2025-01-11 10:08 | XMS_ITS | Encounter Summary ---
Author Name [facility] Organization [facility] [place] Address [address] [place] [address] Care Team Providers Care Nurses' Aide Name Role Phone CINDY ZAMORANO Primary Care Provider Unavail able Selected Encounter This section includes the information on record at [place] for the Encounter. Date/Time Encounter Type Encounter Description Reason Provider Source Jul 13, 2024 01:00 PM Outpatient Encounter ADMIN PAT ACTIVTIES (MASNONCT) DINA GONZALES Encounter Template Text not used by [place] Plan of Treatment: Future Appointments (+ 6 months) and Future Tests (+/- 45 days) The Plan of Treatment section includes future care activities for the patient from all [place] treatmentfacilities. This section includes future appointments and future orders which are active, pending or scheduled. Future Appointments This section includes appointments that were scheduled to occur 6 months from the date of the Encounter, up to a maximum of 20 appointments. The data comes from all [place] treatment facilities. Appointment Date/Time Appointment Type Appointme nt Facility Name Jul 24, 2024 02:07 PM AMBUL[facility]ORY [facility] Aug 01, 2024 01:01 PM AM[facility]ORY - NONE [place] Aug 02, 2024 09:30 AM AMBULATORY - MEDICINE [facility] Aug 03, 2024 03:00 PM AMBULATORY - REHAB MEDICIN E [facility] Aug 16, 2024 08:30 AM AMBULATORY - REHAB [facility]ICIN [facility] Aug 23, 2024 02:24 PM AMBULATORY - MEDICINE [facility] Sep 05, 2024 05:20 PM AMBULATORY - REHAB [facility]IN [facility] Sep 19, 2024 01:00 PM AMBULATORY - NONE [place] [facility] Oct 04, 2024 09:00 AM AMBULATORY - REHAB MEDICIN E [facility] Oct 10, 2024 09:30 AM AMBULATORY - REHAB [facility] Oct 25, 2024 10:00 AM [facility] Oct 25, 2024 05:10 PM AMBULATORY - REHAB [facility]IN [facility] Nov 15, 2024 12:45 PM [facility] Nov 22, 2024 09:30 AM [facility] Nov 22, 2024 10:30 AM AMBULATORY - MEDICINE [facility] Nov 25, 2024 09:30 AM AMBULATORY - SURGERY [facility] Nov 26, 2024 09:29 AM AMBULATORY - MEDICINE [facility] Nov 30, 2024 11:00 AM AMBULATORY - SURGERY [facility] Dec 02, 2024 08:00 AM AMBULATORY - REHAB MEDICIN E [facility] Dec 09, 2024 08:30 AM [facility] Lab Results: +/- 30 days of the encounter This section includes the Chemistry and Hematology Lab Results on record with [place] for the patient. Radiology Reports and Pathology Reports are provided separately, in subsequent sections. Lab Results This section contains the Chemistry/Hematology Results that were resulted 30 days before or 30 daysafter the date of the Encounter. Date/Time Source Result Type Result - Unit Interpretation Reference Range Comment Jul 24, 2024 04:10 PM [facility] HCG, QUAL Specimen Type: URINE No comment entered. Ordering Provider: LISA ESPARZA Report Released Date/Time: Jul 24, 2024 02:59 PM Reporting Lab: [facility] [id number] Performing Lab: [facility] [id number] HCG, QUAL NEGATIVE -neg- Jul 24, 2024 04:10 PM [facility] URINALYSIS Specimen Type: URINE No comment entered. Ordering Provider: LISA ESPARZA Report Released Date/Time: Jul 24, 2024 02:59 PM Reporting Lab: [facility] [id number] Performing Lab: [facility] [id number] URINE COLOR LIGHT-YELLOW SPECIFIC GRAVITY 1.023 1.003-1.03 [...] NEGATIVE NEGATIVE Jul 24, 2024 03:09 PM [facility] EXTRA GOLD GEL TUBE Specimen Type: SERUM No comment entered. Ordering Provider: LISA ESPARZA Report Released Date/Time: Jul 24, 2024 03:09 PM Reporting Lab: [facility] [id number] Performing Lab: [facility] [address] EXTRA GOLD GEL TUBE RECEIVED Jul 24, 2024 03:08 PM [facility] PROTHROMBIN TIME/INR Specimen Type: PLASMA No comment entered. Ordering Provider: LISA ESPARZA Report Released Date/Time: Jul 24, 2024 02:59 PM Reporting Lab: [facility] [id number] Performing Lab: [facility] [address] .INR 1.0 0.8-1.1 .PT 12.1 s 9.4-12.5 Jul 24, 2024 03:08 PM [facility] COMPREHENSIVE METABOLIC PANEL+MG Specimen Type: PLASMA No comment entered. Ordering Provider: LISA ESPARZA Report Released Date/Time: Jul 24, 2024 02:59 PM Reporting Lab: [facility] [address] Performing Lab: [facility] [address] CREATININE 0.6 mg/dL 0.5-1.0 UREA NITROGEN 10 [...] >90 >60 Jul 24, 2024 03:08 PM [facility] CBC & DIFF Specimen Type: BLOOD Comment: Automated Differential Performed Ordering Provider: LISA ESPARZA Report Released Date/Time: Jul 24, 2024 02:59 PM Reporting Lab: [facility] [address] Performing Lab: [facility] [phone] WBC 4.4 4.0-11.0 RBC 4.48 4.00-5.40 HGB [...] EOS 0.1 0-0.5 ABS BASO 0.0 0-0.2 IG(META,MYELO,P RO) 0.2 ABS IMMATURE GRAN 0.0 0-0.1 Social History: Smoking Status (Most current) and Tobacco Use (All prior to encounter date) This section includes the most current, and the historical, smoking and tobacco- related health factors from the [place] facility where the Encounter took place. Current Smoking Status This section includes the most current smoking, or tobacco-related health factor, from the [place] facility where the Encounter took place. Date/Time Current Smoking Status Comment Srini ity Nov 27, 2023 03:30 PM VA-TOBACCO FORMER USER [facility] Tobacco Use History This section includes a history of the smoking, or tobacco-related health factors, that were collected on or before the date of the Encounter. The data comes from the [place] facility where the Encounter took place. Date/Time Smoking Status/Tobacco Use Comment F acility Nov 27, 2023 03:30 PM VA-TOBACCO QUIT 5 TO < 15 YRS [facility] Jan 14, 2023 09:03 AM VA-TOBACCO FORMER USER [facility] Jan 14, 2023 09:03 AM VA-TOBACCO QUIT 5 TO < 15 YRS [facility] Radiology Reports: +/- 30 days of [...] the Encounter. The data comes from all [place] treatment facilities. Date/Time Radiology Report Provider Source Jul 24, 2024 03:[address] (AP) ABDOMEN/PE LVIS (P): AWAIS PADILLA [id number] -1990 F Exm Date: JUL 24, 2024@15:44 Req Phys: ÁNGEL ESPARZA Pat Loc: [facility] WALK-IN (Re Img Loc: CT IMAGING Service: Unknown Screen: [place] [address] (Case [id number] COMPLETE) CT (AP) ABDOMEN/PELVIS W CONTRAST(CT Detailed) CPT:41567 Contrast Media : Non-ionic Iodinated Reason for [...] PLASMA .CREAT EGFR(CKD-E >90 Ref: >=60 Allergies: ([place] only) METOPROLOL (Jan 14, 2023) REGLAN (Jan 14, 2023) Defer to radiologist for final CT protocol. Contact number for responsible provider who can be reached for any questions or notifications of critical findings: tish ext [phone] Per Joint Commission Standards, by signing this diagnostic imaging request the ordering provider confirms they have considered patients age and recent imaging history. Report Status: Verified Date Reported: JUL 24, 2024 Date Verified: JUL 24, 2024 Title Searcher E-Sig: Report: CT (AP) ABDOMEN/PELVIS W CONTRAST [PRINTSET] HISTORY: Recurrent LUQ pain COMPARISON: Abdomen and pelvis CT on 02/22/2024. TECHNIQUE: CT of the abdomen and pelvis with multiplanar reformats was performed at the local [place] facility. 823 images were received by the [place] National Teleradiology Program (NTP) for interpretation. RADIATION [...] mild splenomegaly. READING PHYSICIAN: Nunu Jackson MD -[id number] 07/24/2024 14:20 PDT [facility] National Teleradiology Program [phone] (For Medical Practitioner Use Only) Attention Patients / Veterans: If you have questions or concerns about these test results, please contact your ordering provider or primary care team. Primary Interpreting Staff: RADIOLOGY,OUTSIDE SERVICE, Staff Physician / RADIOLOGY,OUTSIDE SERVICE [facility] Jun 13, 2024 11:16 AM US ABDOMEN COMPL/D OPPLER (P): AWAIS PADILLA [id number] -1990 F Exm Date: JUN 13, 2024@11:16 Req Phys: KURT NEWELL Pat Loc: [facility] (Req'g Loc) Img Loc: [facility] ULTRASOUND Service: Unknown Screen: Patient answered no (Case [id number] COMPLETE) NON VA US ABDOMEN (US Detailed) CPT:95651 Reason for Study: Abdominal pain Clinical History: Recurrent abdominal pain, now with right sided pain, previously with L sided pain and splenomegaly Responsible provider name and phone number to notify for critical findings if other than user placing the order and pager listed below: User placing orders pager: [phone] LAST CREATININE 0.7 (04/26/24) Report Status: Electronically Filed Date Reported: JUL 11, 2024 Report: This is an outside Imaging study and/or report imported for continuity of patient care. This Imaging study and/or report was not reviewed or verified by a [place] Radiologist. Impression: This is an outside Imaging study and/or report imported for continuity of patient care. This Imaging study and/or report was not reviewed or verified by a [place] Radiologist. Primary Diagnostic Code: VERIFIED BY: / *ELECTRONICALLY FILED* [facility] Encounter Notes: All associated encounter notes This section contains the clinical notes associated to the Encounter. Date/Time Encounter Note(s) Provider Source Jul 15, 2024 08:45 AM ADDENDUM: LOCAL TITLE: Addendum STANDARD TITLE: ADDENDUM DATE OF NOTE: JUL 15, 2024@08:45:43 ENTRY DATE: JUL 15, 2024@08:45:45 AUTHOR: PHILLIP MELTON EXP COSIGNER: URGENCY: STATUS: COMPLETED Records requested and will be uploaded via Tag'By when received. /los/ PHILLIP MELTON ...Advanced Research Scientist Signed: 07/15/2024 08:45 Receipt Acknowledged By: 07/15/2024 09:34 /es/ BAYLEE GIBBS RN REGISTERED NURSE for ANDRES TA --- Original Document --- 04/16/24 [facility] SELF PRESENTING CARE COORD PLAN NOTE: Emergency Notification Intake Date Presenting to the Facility: Mar Method of Contact: Notified from [facility] worklist Notification ID: [id number] [facility] Referral #: [facility] Name: Hospital: [facility] Address: City: [place] State: [place] Zip Code: Phone : Community Facility Point of Contact: Name: Phone: Chief complaint: SHARP LEFT EAR PAIN Primary Diagnosis: Disposition Discharged Date of discharge: Mar Discharge to home Notify - Submit for /los/ ELOISE LOMBARDO Clinical Account Specialist(AOD) Signed: 07/13/2024 13:31 Receipt Acknowledged By: 07/14/2024 13:20 /es/ Dina Gonzales MA, PHN, RN-BC vallez filter operator Pastry Baker PHILLIP MELTON [facility] Jul 14, 2024 02:13 PM ADDENDUM: LOCAL TITLE: Addendum STANDARD TITLE: ADDENDUM DATE OF NOTE: JUL 14, 2024@14:13:38 ENTRY DATE: JUL 14, 2024@14:13:38 AUTHOR: KARRIE COLVIN EXP COSIGNER: URGENCY: STATUS: COMPLETED [place] was seen in a Community ED. Records [...] Contact: Notified from [facility] worklist Notification ID: [id number] [facility] Referral #: [facility] Name: Hospital: [facility] Address: City: [place] State: [place] Zip Code: Phone : [facility] Facility Point of Contact: Name: Phone: Chief complaint: [id number] - Other chest pain Primary Diagnosis: Disposition Unknown at time of intake note entry Notify - Approved for 170 /los/ ELOISE LOMBARDO Clinical Account Specialist(AOD) Signed: 07/13/2024 13:21 Receipt Acknowledged By: 07/14/2024 13:19 /es/ Dina Gonzales MA, PHN, RN-BC vallez filter operator Pastry Baker 11/07/2023 ADDENDUM STATUS: COMPLETED [facility] Scanned Document - Addendum. ED record 11.07.23 [facility] SCANNED DOCUMENT SIGNATURE NOT REQUIRED Electronically Filed: 07/14/2024 by: KARRIE COLVIN [facility] 07/14/2024 ADDENDUM STATUS: COMPLETED this ER visit was in Oct 2023. No f/u necessary. /los/ JOHN NUGENT MD STAFF PHYSICIAN Signed: 07/14/2024 14:59 KARRIE COLVIN [facility] Apr 16, 2024 01:26 PM NONVA [...] Facility: Mar Method of Contact: Notified from [facility] worklist Notification ID: [id number] Name: [facility] Address: City: [place] State: [place] Zip Code: Phone : [facility] Facility Point of Contact: Name: Phone: Chief complaint: SHARP LEFT EAR PAIN Primary Diagnosis: Disposition Discharged Date of discharge: Mar Discharge to home Notify - Submit for /los/ ELOISE LOMBARDO Clinical Account Specialist(AOD) Signed: 07/13/2024 13:31 Receipt Acknowledged By: 07/14/2024 13:20 /los/ Dina Gonzales MA, PHN, RN-BC vallez filter operator Pastry Baker 07/15/2024 ADDENDUM STATUS: COMPLETED Records requested and will be uploaded via Tag'By when received. /los/ PHILLIP MELTON ...Advanced Research Scientist Signed: 07/15/2024 08:45 Receipt Acknowledged By: 07/15/2024 09:34 /es/ BAYLEE GIBBS RN REGISTERED NURSE for ANDRES Zeyad TA 07/18/2024 ADDENDUM STATUS: COMPLETED Neither current records of disposition, nor a Discharge Summary have been received by this interval review date. Additionally, records related to this episode of care, (EOC) are not available via [facility]. I faxed a 2nd request for current or final records of disposition related to this EOC in order to further either a Continued Stay Review, or a Discharge Summary Notification. /los/ Dina Gonzales MA, PHN, RN-BC vallez filter operator Pastry Baker Signed: 07/18/2024 10:03 ELOISE LOMBARDO [facility] Nov 07, 2023 01:10 PM NONVA NOTE: LOCAL TITLE: [facility] SELF PRESENTING CARE COORD PLAN STANDARD TITLE: NONVA NOTE DATE OF NOTE: NOV 07, 2023@13:10 ENTRY DATE: JUL 13, 2024@13:10:51 AUTHOR: ELOISE LOMBARDO [facility] COSIGNER: URGENCY: STATUS: COMPLETED [facility] SELF PRESENTING CARE COORD PLAN NOTE Has ADDENDA Emergency Notification Intake Date Presenting to the Facility: Oct Method of Contact: Notified from [facility] worklist Notification ID: [id number] [facility] Name: Hospital: [facility] Address: City: [place] State: [place] Zip Code: Phone : Community Facility Point of Contact: Name: Phone: Chief complaint: [id number] - Other chest pain Primary Diagnosis: Disposition Unknown at time of intake note entry Notify - Approved for 170 /los/ ELOISE LOMBARDO Clinical Account Specialist(AOD) Signed: 07/13/2024 13:21 Receipt Acknowledged By: 07/14/2024 13:19 /los/ Dina Gonzales MA, PHN, RN-BC vallez filter operator Pastry Baker 11/07/2023 ADDENDUM STATUS: COMPLETED [facility] Scanned Document - Addendum. ED record 11.07.23 [facility] SCANNED DOCUMENT SIGNATURE NOT REQUIRED Electronically Filed: [...] STAFF PHYSICIAN Signed: 07/14/2024 14:59 ELOISE LOMBARDO [facility]
--- OUTSIDE RECORDS SUMMARY | 2025-01-11 10:08 | XMS_ITS | Encounter Summary ---
Author Name [facility] Organization [facility] Address [address] [place] [id number] Care Team Providers Care [employer] Name Role Phone CINDY ZAMORANO Primary Care Provider Unavail able Selected Encounter This section includes the information on record at [place] for the Encounter. Date/Time Encounter Type Encounter Description Reason Pro vider Source Aug 03, 2024 03:00 PM Outpatient Encounter POLYTRAUMA/TBI IND IHE Encounter Template Text not used by [place] Plan of Treatment: Future Appointments (+ 6 months) and Future Tests (+/- 45 days) The Plan of Treatment section includes future care activities for the patient from all [place] treatmentfacilities. This section includes future appointments and future orders which are active, pending or scheduled. Future Appointments This section includes appointments that were scheduled to occur 6 months from the date of the Encounter, up to a maximum of 20 appointments. The data comes from all [place] treatment facilities. Appointment Date/Time Appointment Type Appointme nt Facility Name Aug 16, 2024 08:30 AM AMBULATORY - REHAB [facility] Aug 23, 2024 02:24 PM [facility], [facility]24 05:20 [facility] Sep [facility], [facility]24 01:00 PM [facility] Oct 04, 2024 09:00 AM AMBULATORY - [facility]IC[facility] Oct 10, 2024 09:30 AM AMBULATORY - REHAB MEDICIN [facility] Oct 25, 2024 10:00 AM AM[facility]UL[facility]ORY - [facility]IC[facility] Oct 25, 2024 05:10 PM AMBULATORY - REHAB MEDICIN [facility] Nov 15, 2024 12:45 PM AMBULATORY - NONE [facility] Nov 22, 2024 09:30 AM AMBUL[facility]ORY - NONE [facility] Nov 22, 2024 10:30 AM [facility] Nov 25, 2024 09:30 AM AMBULATORY - SURGERY [facility] Nov 26, 2024 09:29 AM [facility] Nov 30, 2024 11:00 AM [facility] Dec 02, 2024 08:00 AM AMBULATORY - REHAB MEDICIN [facility] Dec 09, 2024 08:30 AM AMBULATORY - NONE [facility] Dec 09, 2024 09:30 AM AMBULATORY - NONE [facility] Dec 09, 2024 10:30 AM AMBULATORY - NONE [facility] Dec 09, 2024 10:45 AM AMBULATORY - SURGERY [facility] Dec 13, 2024 01:00 PM AMBULATORY - REHAB MEDICIN [facility] Lab Results: +/- 30 days of the encounter This section includes the Chemistry and Hematology Lab Results on record with [place] for the patient. Radiology Reports and Pathology Reports are provided separately, in subsequent sections. Lab Results This section contains the Chemistry/Hematology Results that were resulted 30 days before or 30 daysafter the date of the Encounter. Date/Time Source Result Type Result - Unit Interpretation Reference Range Comment Aug 23, 2024 03:57 PM [facility] HCG, QUAL Specimen Type: URINE Comment: [employer] Gene[employer]pert (618) Ordering Provider: RANDAL CHAMBERLAIN Report Released Date/Time: Aug 23, 2024 03:47 PM Reporting Lab: [facility] [phone] Performing Lab: [facility] [id number] HCG, QUAL NEGATIVE -neg- Aug 23, 2024 03:57 PM [facility] COVID-19 AND FLU/RSV DIAG PANEL(CEPHEID) Specimen Typ e: NASOPHARYNGEAL Comment: [employer] GeneXpert (618) Ordering Provider: RANDAL CHAMBERLAIN Report Released Date/Time: Aug 23, 2024 03:43 PM Reporting Lab: [facility] [phone] Performing Lab: [facility] [id number] COVID-19 (CEPHEID) Not Detected Not Detected INFLUENZA A (PCR) Not Detected Not Detected INFLUENZA B (PCR) Not Detected Not Detected RSV (PCR) Not Detected Not Detected Aug 23, 2024 03:30 PM [facility] URINALYSIS Specimen Type: URINE No comment entered. Ordering Provider: RANDAL CHAMBERLAIN Report Released Date/Time: Aug 23, 2024 03:43 PM Reporting Lab: [facility] [phone] Performing Lab: [facility] [phone] URINE COLOR LIGHT-YELLOW SPECIFIC GRAVITY 1.014 1.003-1.03 [...] NEGATIVE NEGATIVE Jul 24, 2024 04:10 PM [facility] HCG, QUAL Specimen Type: URINE No comment entered. Ordering Provider: IGNACIO ESPARZA Report Released Date/Time: Jul 24, 2024 02:59 PM Reporting Lab: [facility] [phone] Performing Lab: [facility] [phone] HCG, QUAL NEGATIVE -neg- Jul 24, 2024 04:10 PM [facility] URINALYSIS Specimen Type: URINE No comment entered. Ordering Provider: IGNACIO ESPARZA Report Released Date/Time: Jul 24, 2024 02:59 PM Reporting Lab: [facility] [address] Performing Lab: [facility] [address] URINE COLOR LIGHT-YELLOW SPECIFIC GRAVITY 1.023 1.003-1.03 [...] NEGATIVE NEGATIVE Jul 24, 2024 03:09 PM [facility] EXTRA GOLD GEL TUBE Specimen Type: SERUM No comment entered. Ordering Provider: IGNACIO ESPARZA Report Released Date/Time: Jul 24, 2024 03:09 PM Reporting Lab: [facility] [phone] Performing Lab: [facility] [phone] EXTRA GOLD GEL TUBE RECEIVED Jul 24, 2024 03:08 PM [facility] PROTHROMBIN TIME/INR Specimen Type: PLASMA No comment entered. Ordering Provider: IGNACIO ESPARZA Report Released Date/Time: Jul 24, 2024 02:59 PM Reporting Lab: [facility] [phone] Performing Lab: [facility] [address] .INR 1.0 0.8-1.1 .PT 12.1 s 9.4-12.5 Jul 24, 2024 03:08 PM [facility] COMPREHENSIVE METABOLIC PANEL+MG Specimen Type: PLASMA No comment entered. Ordering Provider: IGNACIO ESPARZA Report Released Date/Time: Jul 24, 2024 02:59 PM Reporting Lab: [facility] [phone] Performing Lab: [facility] [phone] CREATININE 0.6 mg/dL 0.5-1.0 UREA NITROGEN 10 [...] >90 >60 Jul 24, 2024 03:08 PM [facility] CBC & DIFF Specimen Type: BLOOD Comment: Automated Differential Performed Ordering Provider: IGNACIO ESPARZA Report Released Date/Time: Jul 24, 2024 02:59 PM Reporting Lab: [facility] [phone] Performing Lab: [facility] [address] WBC 4.4 4.0-11.0 RBC 4.48 4.00-5.40 HGB [...] and tobacco- related health factors from the [place] facility where the Encounter took place. Current Smoking Status This section includes the most current smoking, or tobacco-related health factor, from the [place] facility where the Encounter took place. Date/Time Current Smoking Status Comment Srini zaldivar Nov 27, 2023 03:30 PM VA-TOBACCO QUIT 5 TO < 15 YRS [facility] Tobacco Use History This section includes a history of the smoking, or tobacco-related health factors, that were collected on or before the date of the Encounter. The data comes from the [place] facility where the Encounter took place. Date/Time Smoking Status/Tobacco Use Comment F acility Nov 27, 2023 03:30 PM VA-TOBACCO QUIT 5 TO < 15 YRS [facility] Jan 14, 2023 09:03 AM VA-TOBACCO FORMER USER [facility] Jan 14, 2023 09:03 AM [place]-TOBACCO QUIT 5 TO < 15 YRS [facility] Radiology Reports: +/- 30 days of [...] the Encounter. The data comes from all [place] treatment facilities. Date/Time Radiology Report Provider Source Aug 23, 2024 04:06 PM CHEST 2 VIEWS PA A ND LAT: AWAIS PADILLA [id number] -1990 F Exm Date: AUG 23, 2024@16:06 Req Phys: RANDAL CHAMBERLAIN Loc: [facility] EMERGENCY DEPT WALK-IN (Re Img Loc: MAIN X-RAY Service: Unknown Screen: [place] [address] (Case [id number] COMPLETE) CHEST 2 VIEWS PA AND LAT (RAD Detailed) CPT:54022 Reason for Study: same Clinical History: IS under investigation (PUI) for COVID-19 or is COVID-19+ Cough x 1 day Responsible provider name and phone number to notify for critical findings if other than user placing the order and pager listed below: User placing orders pager: LAST CREATININE 0.6 (07/24/24) Report Status: Verified Date Reported: AUG 23, 2024 Date Verified: AUG 23, 2024 Supervisor Roving Department E-Sig:/ES/CODY CASTILLO MD Report: CHEST 2 VIEWS PA AND LAT 08/23/2024 INDICATION: same COMPARISON: None. FINDINGS: Heart and pulmonary vasculature are within normal limits for size. Lungs are clear. Bones are unremarkable. Impression: No visible acute cardiopulmonary disease. Primary Interpreting Staff: CODY CASTILLO MD, RADIOLOGIST (Supervisor Roving Department) /CODY RIOS [facility] Jul 24, 2024 03:[address] (AP) ABDOMEN/PE LVIS (P): AWAIS PADILLA [id number] -1990 F Exm Date: JUL 24, 2024@15:44 Req Phys: ÁNGEL ESPARZA Pat Loc: [facility] EMERGENCY DEPT WALK-IN (Re Img Loc: CT IMAGING Service: Unknown Screen: [place] [address] (Case 41 COMPLETE) CT (AP) ABDOMEN/PELVIS W CONTRAST(CT Detailed) CPT:60387 Contrast Media : Non-ionic Iodinated Reason for [...] PLASMA .CREAT EGFR(CKD-E >90 Ref: >=60 Allergies: ([place] only) METOPROLOL (Jan 14, 2023) REGLAN (Jan 14, 2023) Defer to radiologist for final CT protocol. Contact number for responsible provider who can be reached for any questions or notifications of critical findings: tish ext [phone] Per Joint Commission Standards, by signing this diagnostic imaging request the ordering provider confirms they have considered patients age and recent imaging history. Report Status: Verified Date Reported: JUL 24, 2024 Date Verified: JUL 24, 2024 Supervisor Roving Department E-Sig: Report: CT (AP) ABDOMEN/PELVIS W CONTRAST [PRINTSET] HISTORY: Recurrent LUQ pain COMPARISON: Abdomen and pelvis CT on 02/22/2024. TECHNIQUE: CT of the abdomen and pelvis with multiplanar reformats was performed at the local [place] facility. 823 images were received by the [place] National Teleradiology Program (NTP) for interpretation. RADIATION [...] mild splenomegaly. READING PHYSICIAN: Nunu Jackson MD -[id number] 07/24/2024 14:20 [facility] National Teleradiology Program [phone] (For Medical Practitioner Use Only) Attention Patients / Veterans: If you have questions or concerns about these test results, please contact your ordering provider or primary care team. Primary Interpreting Staff: RADIOLOGY,OUTSIDE SERVICE, Staff Physician / RADIOLOGY,OUTSIDE SERVICE [facility] Pathology Reports: +/- 30 days of the [...] the Encounter. The data comes from all [place] treatment facilities. Date/Time Pathology Report Provider Source Aug 23, 2024 03:57 PM LR MICROBIOLOGY RE PORT: Reporting Lab: [facility] [CLIA# [id number]] [place] [address] Accession [UID]: [id number] [[id number]] Received: Aug 23, 2024@15:57 Collection sample: URINE Collection date: Aug 23, 2024 15:57 Provider: RANDAL CHAMBERLAIN Comment on specimen: RECEIVED IN STERILE CUP Test(s) ordered: CULTURE & SUSCEPTIBILITY...... completed: Aug 25, 2024 * BACTERIOLOGY FINAL REPORT => Aug 25, 2024 07:44 [facility] CODE: [id number] CULTURE RESULTS: LESS THAN 10,000 CFU/ML Bacteriology Remark(s): THIS REPORT IS FINAL =--=--=--=--=--=--=--=--=--=--=--=- -=--=--=--=--=--=--=--=--=--=--=--= --=--=-- Performing Laboratory: Bacteriology Report Performed By: [facility] [CLIA# [id number]] [address] [place] [address] [facility] Encounter Notes: All associated encounter notes [...] contacted per scheduling directives /es/ HARMONY MOODY, RN,CONTINUOUS IMPROVEMENT COORDINATOR RN, CONTINUOUS IMPROVEMENT COORDINATOR Signed: 08/03/2024 19:49 HARMONY MOODY [facility]
--- OUTSIDE RECORDS SUMMARY | 2025-01-11 10:08 | XMS_ITS | Encounter Summary ---
Author Name [facility] [place] [facility] [place] [facility] [place] Address [address] [place] [address] Care Team Providers Care Game Moderator Name Role Phone LONA CINDY Primary Care Provider Unavail able Selected Encounter This section includes the information on record at [place] for the Encounter. Date/Time Encounter Type Encounter Description Reason Pro vider Source March 03, 2024 02:00 PM Outpatient Encounter OCCUPATIONAL THERAPY IHE Encounter Template Text not used by [place] Plan of Treatment: Future Appointments (+ 6 [...] 20 appointments. The data comes from all [place] treatment facilities. Appointment Date/Time Appointment Type Appointme nt Facility Name March 10, 2024 11:50 AM AMBULATORY - MEDICINE [facility] Mar 22, 2024 09:00 AM [facility] Mar 22, 2024 10:06 AM AMBULATORY - MEDICINE [facility] Mar 22, 2024 11:54 AM [facility] Mar 22, 2024 01:30 PM [facility] [place] [facility] Mar 22, 2024 03:00 PM [facility] [place] [facility] Apr 07, 2024 04:45 PM [place] [place] [facility] Apr 11, 2024 09:30 AM AM[facility]ULATORY - [facility]AB [facility] Apr 26, 2024 09:00 AM [place] [place] [facility] Apr 26, 2024 10:00 AM [facility] Apr 28, 2024 02:00 PM AM[facility]ULAT[facility] - [facility] May 03, 2024 09:00 AM [facility] May 04, 2024 03:00 PM AMBULATORY - RE[facility]AB [facility] May 09, 2024 10:30 AM [facility] May 13, 2024 05:20 PM AMBULATORY - REHAB [facility]IN [facility] May 17, 2024 04:00 PM AMBULATORY - REHAB [facility] May 19, 2024 05:37 PM [facility] May 27, 2024 05:20 PM AMBULATORY - REHAB [facility] Jun 01, 2024 05:10 PM AMBULATORY - REHAB [facility] Jun 13, 2024 12:11 PM [facility] Active, Pending, and Scheduled Orders This section includes a listing of several types of active, pending, and scheduled orders, including clinic medications orders, diagnostic test orders, procedure orders and consult orders; where the start date of the order is 45 days before the date of the Encounter or 45 days after the date of theEncounter. The data comes from all [facility]. Test Date/Time Test Type Test Details Facility Name Jan 20, 2024 12:00 AM Laboratory - Blood Bank Order TYPE & SCREEN - LAB BLOOD [facility] Jan 28, 2024 12:00 AM Laboratory - Blood Bank Order TYPE & SCREEN - LAB BLOOD [facility] Lab Results: +/- 30 [...] Result - Unit Interpretation Reference Range Comment Mar 22, 2024 02:49 PM [facility] HEMOGLOBIN A1C Specimen Type: BLOOD Comment: Values obtained from A1C measurements can vary. For typical A1C assays, a reported value of 7.0 could actually be between 6.7 and 7.3 if measured by a reference method. A reported value of 9.0 could actually be between 8.7 and 9.3. Ref: http://[email or web address] .org/CAPdata.as p Ordering Provider: JOHN NUGENT Report Released Date/Time: Mar 22, 2024 01:53 PM Reporting Lab: [facility] [phone] Performing Lab: [facility] [address] HEMOGLOBIN A1C 4.7 4.0-6.0 Mar 22, 2024 02:49 PM [facility] TSH W/REFLEX TO FREE T4 Specimen Type: PLASMA No comment entered. Ordering Provider: JOHN NUGENT Report Released Date/Time: Mar 22, 2024 01:53 PM Reporting Lab: [facility] [address] Performing Lab: [facility] [address] TSH 1.38 u[IU]/mL 0.35-4.94 Mar 22, 2024 12:58 PM [facility] FINGERSTICK GLUCOSE Specimen Type: BLOOD No comment entered. Ordering Provider: JOHN NUGENT Report Released Date/Time: Mar 22, 2024 01:31 PM Reporting Lab: [facility] [address] Performing Lab: [facility] [address] FINGERSTICK GLUCOSE 11 mg/dL LL 70-100 Mar 22, 2024 11:10 AM [facility] [id number] Specimen Type: FLUID Comment: No [id number] rin observed on immunofixation. This result suggests little or no CSF is present in the fluid submitted. Ordering Provider: JAZMIN LYNN Report Released Date/Time: Mar 22, 2024 10:53 AM Reporting Lab: [facility] [address] Performing Lab: [facility] [address] [id number] RRIN NEGATIVE NEGATIVE March 10, 2024 01:08 PM [facility] HCG, QUAL Specimen Type: URINE No comment entered. Ordering Provider: STEFFI SOW Report Released Date/Time: March 10, 2024 12:52 PM Reporting Lab: [facility] [address] Performing Lab: [facility] [address] HCG, QUAL NEGATIVE March 10, 2024 01:08 PM [facility] URINALYSIS Specimen Type: URINE No comment entered. Ordering Provider: STEFFI SOW Report Released Date/Time: March 10, 2024 12:52 PM Reporting Lab: [facility] [address] Performing Lab: [facility] [address] URINE COLOR COLORLESS SPECIFIC GRAVITY 1.008 1.003-1.03 5 URINE BILIRUBIN NEGATIVE NEGATIVE URINE KETONES NEGATIVE NEGATIVE URINE GLUCOSE NEGATIVE mg/dL URINE PROTEIN NEGATIVE mg/dL URINE PH 6.0 5.0-8.0 URINE WBC/HPF <1 /[HPF] 0-7 URINE BACTERIA NONE SEEN URINE RBC/HPF >180 /[HPF] H 0-3 APPEARANCE TURBID SQUAMOUS EPITHELIAL <1 /[HPF] URINE BLOOD 3+ NEGATIVE URINE NITRITE NEGATIVE NEGATIVE LEUKOCYTE ESTERASE NEGATIVE NEGATIVE March 10, 2024 12:29 PM [facility] EXTRA BLUE TUBE Specimen Type: PLASMA No comment entered. Ordering Provider: STEFFI SOW Report Released Date/Time: March 10, 2024 01:03 PM Reporting Lab: [facility] [address] Performing Lab: [facility] [address] EXTRA BLUE TUBE RECEIVED March 10, 2024 12:29 PM [facility] MAGNESIUM Specimen Type: PLASMA No comment entered. Ordering Provider: STEFFI SOW Report Released Date/Time: March 10, 2024 12:52 PM Reporting Lab: [facility] [phone] Performing Lab: [facility] [address] MAGNESIUM 1.8 mg/dL 1.6-2.6 March 10, 2024 12:29 PM [facility] EXTRA GOLD GEL TUBE Specimen Type: SERUM No comment entered. Ordering Provider: STEFFI SOW Report Released Date/Time: March 10, 2024 01:03 PM Reporting Lab: [facility] [address] Performing Lab: [facility] [address] EXTRA GOLD GEL TUBE RECEIVED March 10, 2024 12:29 PM [facility] COMPREHENSIVE METABOLIC PANEL+MG Specimen Type: PLASMA No comment entered. Ordering Provider: STEFFI SOW Report Released Date/Time: March 10, 2024 12:52 PM Reporting Lab: [facility] [address] Performing Lab: [facility] [address] CREATININE 0.7 mg/dL 0.5-1.0 UREA NITROGEN 10 mg/dL 7-20 GLUCOSE 71 mg/dL 70-100 SODIUM 141 mmol/L 136-145 POTASSIUM 3.4 mmol/L L 3.5-5.1 CHLORIDE 105 mmol/L 98-107 CO2 29 mmol/L 22-29 CALCIUM 9.0 mg/dL 8.4-10.2 PROTEIN,TOTAL 6.9 g/dL 6.0-8.3 ALBUMIN 4.1 g/dL 3.5-5.2 BILIRUBIN, TOTAL 0.4 mg/dL 0.2-1.2 MAGNESIUM 1.8 mg/dL 1.6-2.6 ANION GAP 7 mmol/L 5-15 ALKALINE PHOSPHATASE 64 U/L 40-150 ALT/SGPT 8 U/L <55 AST/SGOT 14 U/L <34 .CREAT EGFR(CKD-EPI) >90 >60 March 10, 2024 12:29 PM [facility] CBC & DIFF Specimen Type: BLOOD Comment: Automated Differential Performed Ordering Provider: STEFFI SOW Report Released Date/Time: March 10, 2024 12:52 PM Reporting Lab: [facility] [address] Performing Lab: [facility] [address] WBC 3.56 10*3/uL L 4.0-11.0 RBC 4.13 10*6/uL 4.0-5.4 HGB 12.3 g/dL 11.5-16 HCT 36.4 34.5-48 MCV 88.1 fL 80-100 MCH 29.8 pg 27-33 MCHC 33.8 g/dL 32.0-37.5 PLT 152 10*3/uL 150-400 MPV 11.9 fL H 7.4-10.4 NEUT 57.3 40.0-80.0 LYMPHS 34.3 15.0-45.0 MONO 6.7 2.0-12.0 EOSINO 0.8 0.0-6.0 BASO 0.6 0.0-2.0 RDW 11.9 11.5-14.5 ABS LYMPH 1.22 10*3/uL 1.0-4.0 ABS MONO 0.24 10*3/uL 0.1-1.0 ABS NEUT 2.04 10*3/uL 2.0-7.7 ABS EOS 0.03 10*3/uL 0-0.5 ABS BASO 0.02 10*3/uL 0-0.2 IG(META,MYELO, PRO) 0.3 ABS IMMATURE GRAN 0.01 10*3/uL 0-0.1 February 23, 2024 10:06 AM [facility] COMPREHENSIVE METABOLIC PANEL+MG Specimen Type: PLASMA No comment entered. Ordering Provider: KURT NEWELL Report Released Date/Time: Jan 28, 2024 02:09 PM Reporting Lab: [facility] [address] Performing Lab: [facility] [address] CREATININE 0.7 mg/dL 0.5-1.0 UREA NITROGEN 10 mg/dL 7-20 GLUCOSE 97 mg/dL 70-100 SODIUM 139 mmol/L 136-145 POTASSIUM 3.8 mmol/L 3.5-5.1 CHLORIDE 105 mmol/L 98-107 CO2 28 mmol/L 22-29 CALCIUM 9.2 mg/dL 8.4-10.2 PROTEIN,TOTAL 7.5 g/dL 6.0-8.3 ALBUMIN 4.4 g/dL 3.5-5.2 BILIRUBIN, TOTAL 1.1 mg/dL 0.2-1.2 MAGNESIUM 1.9 mg/dL 1.6-2.6 ANION GAP 6 mmol/L 5-15 ALKALINE PHOSPHATASE 64 U/L 40-150 ALT/SGPT 8 U/L <55 AST/SGOT 14 U/L <34 .CREAT EGFR(CKD-EPI) >90 >60 February 23, 2024 10:06 AM [facility] CBC & DIFF Specimen Type: BLOOD Comment: Automated Differential Performed Ordering Provider: KURT NEWELL Report Released Date/Time: Jan 28, 2024 02:09 PM Reporting Lab: [facility] [phone] Performing Lab: [facility] [address] WBC 3.46 10*3/uL L 4.0-11.0 RBC 4.46 10*6/uL 4.0-5.4 HGB 13.4 g/dL 11.5-16 HCT 39.7 34.5-48 MCV 89.0 fL 80-100 MCH 30.0 pg 27-33 MCHC 33.8 g/dL 32.0-37.5 PLT 192 10*3/uL 150-400 MPV 10.4 fL 7.4-10.4 NEUT 57.1 40.0-80.0 LYMPHS 35.3 15.0-45.0 MONO 5.8 2.0-12.0 EOSINO 0.6 0.0-6.0 BASO 0.9 0.0-2.0 RDW 12.2 11.5-14.5 ABS LYMPH 1.22 10*3/uL 1.0-4.0 ABS MONO 0.20 10*3/uL 0.1-1.0 ABS NEUT 1.98 10*3/uL L 2.0-7.7 ABS EOS 0.02 10*3/uL 0-0.5 ABS BASO 0.03 10*3/uL 0-0.2 IG(META,MYELO, PRO) 0.3 ABS IMMATURE GRAN 0.01 10*3/uL 0-0.1 Feb 07, 2024 12:52 PM [facility] COVID-19 DIAGNOSTIC PANEL (BIOFIRE) Specimen Type: NASOPHARYNGEAL Comment: Biofire [place] (618) Ordering Provider: THOMAS MEDEIROS Report Released Date/Time: Feb 07, 2024 12:38 PM Reporting Lab: [facility] [phone] Performing Lab: [facility] [address] C PNEUMONIAE PCR NOT DETECTED NOT DETECTED M PNEUMONIAE PCR NOT DETECTED NOT DETECTED ADENOVIRUS-PCR NOT DETECTED NO T DETECTED H METAPNEUMOVIR PCR NOT DETECTED NOT DETECTED H RHIN/ENTEROVIR PCR DETECTED H NOT DETECTED INFLUENZA A PCR NOT DETECTED NOT DETECTED INFLUENZA B PCR NOT DETECTED NOT DETECTED RSV PCR NOT DETECTED NOT DETECTED CORONAVIRUS 229E PCR NOT DETECTED NOT DETECTED CORONAVIRUS HKU1 PCR NOT DETECTED NOT DETECTED CORONAVIRUS NL63 PCR NOT DETECTED NOT DETECTED CORONAVIRUS OC43 PCR NOT DETECTED NOT DETECTED PARAINFLUENZA V1 PCR NOT DETECTED NOT DETECTED PARAINFLUENZA V2 PCR NOT DETECTED NOT DETECTED PARAINFLUENZA V3 PCR NOT DETECTED NOT DETECTED PARAINFLUENZA V4 PCR NOT DETECTED NOT DETECTED B PARAPERTUS(IS1 001) NOT DETECTED NOT DETECTED B PERTUSSIS(PTXP ) NOT DETECTED NOT DETECTED RESPIRATORY INTERP Nucleic acid of specified pathogen(s) IDENTIFIED COVID-19 DIAG (BIOF) NOT DETECTED NOT DETECTED Feb 07, 2024 12:52 PM [facility] COMPREHENSIVE METABOLIC PANEL+MG Specimen Type: PLASMA No comment entered. Ordering Provider: THOMAS MEDEIROS Report Released Date/Time: Feb 07, 2024 12:38 PM Reporting Lab: [facility] [address] Performing Lab: [facility] [address] CREATININE 0.7 mg/dL 0.5-1.0 UREA NITROGEN 9 mg/dL 7-20 GLUCOSE 84 mg/dL 70-100 SODIUM 139 mmol/L 136-145 POTASSIUM 3.6 mmol/L 3.5-5.1 CHLORIDE 107 mmol/L 98-107 CO2 26 mmol/L 22-29 CALCIUM 8.6 mg/dL 8.4-10.2 PROTEIN,TOTAL 6.6 g/dL 6.0-8.3 ALBUMIN 3.8 g/dL 3.5-5.2 BILIRUBIN, TOTAL 0.5 mg/dL 0.2-1.2 MAGNESIUM 1.8 mg/dL 1.6-2.6 ANION GAP 6 mmol/L 5-15 ALKALINE PHOSPHATASE 59 U/L 40-150 ALT/SGPT 9 U/L <55 AST/SGOT 12 U/L <34 .CREAT EGFR(CKD-EPI) >90 >60 Feb 07, 2024 12:52 PM [facility] CBC & DIFF Specimen Type: BLOOD Comment: Automated Differential Performed Ordering Provider: THOMAS MEDEIROS Report Released Date/Time: Feb 07, 2024 12:38 PM Reporting Lab: [facility] [address] Performing Lab: [facility] [address] WBC 3.49 10*3/uL L 4.0-11.0 RBC 3.74 10*6/uL L 4.0-5.4 HGB 11.3 g/dL L 11.5-16 HCT 32.8 L 34.5-48 MCV 87.7 fL 80-100 MCH 30.2 pg 27-33 MCHC 34.5 g/dL 32.0-37.5 PLT 169 10*3/uL 150-400 MPV 10.5 fL H 7.4-10.4 NEUT 56.2 40.0-80.0 LYMPHS 32.1 15.0-45.0 MONO 8.6 2.0-12.0 EOSINO 1.4 0.0-6.0 BASO 1.1 0.0-2.0 RDW 12.4 11.5-14.5 ABS LYMPH 1.12 10*3/uL 1.0-4.0 ABS MONO 0.30 10*3/uL 0.1-1.0 ABS NEUT 1.96 10*3/uL L 2.0-7.7 ABS EOS 0.05 10*3/uL 0-0.5 ABS BASO 0.04 10*3/uL 0-0.2 IG(META,MYELO, PRO) 0.6 ABS IMMATURE GRAN 0.02 10*3/uL 0-0.1 Feb 07, 2024 12:52 PM [facility] LIPASE Specimen Type: PLASMA No comment entered. Ordering Provider: THOMAS MEDEIROS Report Released Date/Time: Feb 07, 2024 12:38 PM Reporting Lab: [facility] [address] Performing Lab: [facility] [address] LIPASE 20 U/L <60 Feb 07, 2024 12:52 PM [facility] HCG, QUAL Specimen Type: URINE No comment entered. Ordering Provider: THOMAS MEDEIROS Report Released Date/Time: Feb 07, 2024 12:38 PM Reporting Lab: [facility] [address] Performing Lab: [facility] [address] HCG, QUAL NEGATIVE Feb 07, 2024 12:52 PM [facility] URINALYSIS Specimen Type: URINE No comment entered. Ordering Provider: THOMAS MEDEIROS Report Released Date/Time: Feb 07, 2024 12:38 PM Reporting Lab: [facility] [address] Performing Lab: [facility] [address] URINE COLOR LIGHT-YELLOW SPECIFIC GRAVITY 1.017 1.003-1.03 5 URINE BILIRUBIN NEGATIVE NEGATIVE URINE KETONES NEGATIVE NEGATIVE URINE GLUCOSE NEGATIVE mg/dL URINE PROTEIN NEGATIVE mg/dL URINE PH 6.0 5.0-8.0 URINE WBC/HPF 1 /[HPF] 0-7 URINE BACTERIA NONE SEEN URINE RBC/HPF 1 /[HPF] 0-3 APPEARANCE CLEAR SQUAMOUS EPITHELIAL 11 /[HPF] URINE BLOOD NEGATIVE NEGATIVE URINE NITRITE NEGATIVE NEGATIVE LEUKOCYTE ESTERASE NEGATIVE NEGATIVE Social History: Smoking Status (Most current) and Tobacco Use (All prior to encounter date) This section includes the most current, and the historical, smoking and tobacco- related health factors from the [place] facility where the Encounter took place. Current Smoking Status This section includes the most current smoking, or tobacco-related health factor, from the [place] facility where the Encounter took place. Date/Time Current Smoking Status Comment Facil ity Nov 27, 2023 03:30 PM [place]-TOBACCO QUIT 5 TO < 15 YRS [facility] Tobacco Use History This section includes a history of the smoking, or tobacco-related health factors, that were collected on or before the date of the Encounter. The data comes from the [place] facility where the Encounter took place. Date/Time Smoking Status/Tobacco Use Comment F acility Nov 27, 2023 03:30 PM [place]-TOBACCO QUIT 5 TO < 15 YRS [facility] Jan 14, 2023 09:03 AM [place]-TOBACCO FORMER USER [facility] Jan 14, 2023 09:03 AM [place]-TOBACCO QUIT 5 TO < 15 YRS [facility] Radiology Reports: +/- 30 days of [...] treatment facilities. Date/Time Radiology Report Provider Source Mar 22, 2024 11:[address] HEAD (P): AWAIS PADILLA [id number] -1990 F Exm Date: MAR 22, 2024@11:44 Req Phys: JAZMIN LYNN Loc: [facility] EMERGENCY DEPT WALK-IN (Re Im Loc: CT IMAGING Service: Unknown Screen: [place] [address] (Case [id number] COMPLETE) CT HEAD/BRAIN W/O CONTRAST (CT Detailed) CPT:21521 Reason for Study: headache, clear liquid flowing from nose Clinical History: LAST 3: Collection DT Specimen Test Name Result Units Ref Range 03/10/2024 12:29 PLASMA CREATININE 0.7 mg/dL 0.5 - 1.0 02/23/2024 10:06 PLASMA CREATININE 0.7 mg/dL 0.5 - 1.0 02/07/2024 12:52 PLASMA CREATININE 0.7 mg/dL 0.5 - 1.0 03/10/2024 12:29 PLASMA .CREAT EGFR(CKD-E >90 Ref: >=60 02/23/2024 10:06 PLASMA .CREAT EGFR(CKD-E >90 Ref: >=60 02/07/2024 12:52 PLASMA .CREAT EGFR(CKD-E >90 Ref: >=60 Allergies: ([place] only) METOPROLOL (Jan 14, 2023) REGLAN (Jan 14, 2023) Defer to radiologist for final CT protocol. Contact number for responsible provider who can be reached for any questions or notifications of critical findings: [phone] Per Joint Commission Standards, by signing this diagnostic imaging request the ordering provider confirms they have considered patients age and recent imaging history. Report Status: Verified Date Reported: MAR 22, 2024 Date Verified: MAR 22, 2024 Qa Consultant E-Sig:/ES/WOLFGANG MILLER DO Report: EXAMINATION: CT HEAD/BRAIN W/O CONTRAST Reason for Study: headache, clear liquid flowing from nose LAST 3: Collection DT Specimen Test Name Result Units Ref Range 03/10/2024 12:29 PLASMA CREATININE 0.7 mg/dL 0.5 - 1.0 02/23/2024 10:06 PLASMA CREATININE 0.7 mg/dL 0.5 - 1.0 02/07/2024 12:52 PLASMA CREATININE 0.7 mg/dL 0.5 - 1.0 03/10/2024 12: headache, clear liquid flowing from nose TECHNIQUE: Computed tomography of the whole brain performed without the use of intravenous contrast. DOSE LENGTH PRODUCT: 736mGycm COMPARISON: 11/12/2023 FINDINGS: No abnormal intra-axial or extra-axial fluid [...] bones of the skull base appear intact. Impression: No significant change in normal CT images [...] CSF leak, CT cisternography may be warranted. Primary Interpreting Staff: WOLFGANG MILLER DO, RADIOLOGIST (Qa Consultant) /KMB WOLFGANG MILLER [facility] February 22, 2024 10:[address] (AP) ABDOMEN/PE LVIS (P): AWAIS PADILLA [id number] -1990 F Exm Date: FEBRUARY 22, 2024@10:24 Req Phys: KURT NEWELL Loc: [facility] ONC OSIR[facility] (Req'g Loc) Img Loc: CT IMAGING Service: Unknown Screen: [place] [address] (Case [id number] COMPLETE) CT (AP) ABDOMEN/PELVIS W CONTRAST(CT Detailed) CPT:18914 Contrast Media : Non-ionic Iodinated Reason for Study: LUQ pain, splenomegaly Clinical History: Patient with LUQ abdominal pain splenomegaly and R meseteric adenitis, evaluation for progression Responsible provider name and phone number to notify for critical findings if other than user placing the order and pager listed below: User placing orders pager: [phone] LAST 3: Collection DT Specimen Test Name Result Units Ref Range 02/07/2024 12:52 PLASMA CREATININE 0.7 mg/dL 0.5 - 1.0 01/28/2024 13:03 PLASMA CREATININE 0.7 mg/dL 0.5 - 1.0 01/23/2024 16:02 PLASMA CREATININE 0.7 mg/dL 0.5 - 1.0 02/07/2024 12:52 PLASMA .CREAT EGFR(CKD-E >90 Ref: >=60 01/28/2024 13:03 PLASMA .CREAT EGFR(CKD-E >90 Ref: >=60 01/23/2024 16:02 PLASMA .CREAT EGFR(CKD-E >90 Ref: >=60 Allergies: METOPROLOL (Jan 14, 2023) REGLAN (Jan 14, 2023) Report Status: Verified Date Reported: FEBRUARY 22, 2024 Date Verified: FEBRUARY 22, 2024 Qa Consultant E-Sig: Report: CT (AP) ABDOMEN/PELVIS W CONTRAST [PRINTSET] HISTORY: LUQ pain, splenomegaly COMPARISON: 01/19/2024 TECHNIQUE: CT of the abdomen and pelvis with multiplanar reformats was performed at the local [place] facility. A contrast-enhanced series was obtained in the portal venous phase. 833 images were received by the [place] [facility] ([facility]) for interpretation. RADIATION DOSE (mGy*cm): 294.29 IV CONTRAST: Not provided, Volume (mL): Not provided FINDINGS: LOWER THORAX: Unremarkable. LIVER: Unremarkable. BILIARY: Unremarkable. PANCREAS: Unremarkable. SPLEEN: The spleen measures 14.5 cm in diameter. ADRENALS: Unremarkable. KIDNEYS/URETERS: Unremarkable. PELVIC ORGANS/BLADDER: Dominant follicle in the right ovary measuring 2.1 cm. The uterus and bladder are unremarkable. GI TRACT: Unremarkable. PERITONEUM: No free air or fluid. LYMPH NODES: No lymphadenopathy. VESSELS: Unremarkable. BONES AND SOFT TISSUES: Unremarkable. Impression: Borderline enlarged spleen. No acute abnormality within the abdomen or pelvis to explain symptoms. READING PHYSICIAN: Juan Jose Salinas -[phone] 02/22/2024 15:56 PDT [facility] National T[facility]iology Program [phone] (For Medical Practitioner Use Only) Attention Patients / Veterans: If you have questions or concerns about these test results, please contact your ordering provider or primary care team. Primary Interpreting Staff: RADIOLOGY,OUTSIDE SERVICE, Staff Physician / RADIOLOGY,OUTSIDE SERVICE [facility] Pathology Reports: +/- 30 days of [...] comes from all [place] treatment facilities. Date/Time Pathology Report Provider Source Feb 03, 2024 04:16 PM [facility] SURGICAL PATHOL OGY REPORT: LOCAL TITLE: LR SURGICAL PATHOLOGY REPORT STANDARD TITLE: PATHOLOGY REPORT DATE OF NOTE: FEB 03, 2024@16:16:14 ENTRY DATE: FEB 03, 2024@16:16:14 AUTHOR: CARITO BERKOWITZ COSIGNER: URGENCY: STATUS: COMPLETED $APHDR Reporting Lab: [facility] [CLIA# [id number]] [place] [address] - - - - - - - - - - - - - - - - - - - - - - - - - - - - - - - - - - - - - - - - MEDICAL RECORD PERIPHERAL SMEAR - - - - - - - - - - - - - - - - - - - - - - - - - - - - - - - - - - - - - - - - PATHOLOGY REPORT Accession No. PS-MN [id number] - - - - - - - - - - - - - - - - - - - - - - - - - - - - - - - - - - - - - - - - $TEXT Submitted by: Date obtained: Jan 19, 2024 - - - - - - - - - - - - - - - - - - - - - - - - - - - - - - - - - - - - - - - - Specimen (Received Jan 20, 2024 08:00): PERIPHERAL SMEAR *+* SUPPLEMENTARY REPORT HAS BEEN ADDED *+* *+* REFER TO BOTTOM OF REPORT *+* - - - - - - - - - - - - - - - - - - - - - - - - - - - - - - - - - - - - - - - - BRIEF CLINICAL HISTORY: - - - - - - - - - - - - - - - - - - - - - - - - - - - - - - - - - - - - - - - - PREOPERATIVE DIAGNOSIS: - - - - - - - - - - - - - - - - - - - - - - - - - - - - - - - - - - - - - - - - OPERATIVE FINDINGS: - - - - - - - - - - - - - - - - - - - - - - - - - - - - - - - - - - - - - - - - POSTOPERATIVE DIAGNOSIS: Surgeon/physician: PURA FERNANDEZ =-=-=-=-=-=-=-=-=-=-=-=-=-=- =-=-=-=-=-=-=-=-=-=-=-=-=-=- =-=-=-=-=-=-=-=-=-=-=-= - - - - - - - - - - - - - - - - - - - - - - - - - - - - - - - - - - - - - - - - PATHOLOGY REPORT Accession No. PS-MN [id number] - - - - - - - - - - - - - - - - - - - - - - - - - - - - - - - - - - - - - - - - Specimen: The automated CBC shows a slight normochromic normocytic anemia, moderate thrombocytopenia with absolute neutropenia and lymphopenia, and moderate thrombocytopenia. Red blood cells show no significant increase in anisopoikilocytosis. Polychromasia is not increased. The reticulocyte production index is decreased at 0.2. The neutrophils have normal segmentation and granulation. The lymphocytes are small and mature appearing. The platelets are small to medium in size with normal granulation. No platelet clumping or satellitosis is seen. Diagnosis: - Slight to moderate pancytopenia Comment: There is no morphologic evidence of hemolysis. The causes of pancytopenia include: Bone Marrow infiltrative disorders, ineffective hematopoiesis (e.g. MDS, Myelosuppressive drugs, B12/folate deficiency, etc.), hypersplenism and aplastic anemia. If clinically indicated, please consider hematology-oncology consultation. SUPPLEMENTARY REPORT(S): Supplementary Report Date: FEB 02, 2024@18:36 *+* SUPPLEMENTARY REPORT HAS BEEN ADDED/MODIFIED *+* (Added/Last released: Feb 03, 2024 16:16 Signed by CARITO BERKOWITZ) ANCILLARY STUDIES SUMMARY: Sent to: Molecular Biology ([facility]) Specimen: Blood (collected 01/28/2024) Test: JAK2 V617F mutation (see O 0411 47) RESULT: JAK2 V617F mutation Not Detected /los/ CARITO BERKOWITZ MD STAFF PATHOLOGIST Signed Feb 03, 2024@16:16 Performing Laboratory: Surgical Pathology Report Performed By: [facility] [CLIA# [id number]] [facility] [place] [address] $FTR - - - - - - - - - - - - - - - - - - - - - - - - - - - - - - - - - - - - - - - - (End of report) CARITO BERKOWITZ MD Date Jan 21, 2024 - - - - - - - - - - - - - - - - - - - - - - - - - - - - - - - - - - - - - - - - AWAIS PADILLA STANDARD FORM 515 ID:[id number] SEX:F :1990 AGE: 33 LOC:8007 PCP: Taryn Spring /los/ CARITO BERKOWITZ MD STAFF PATHOLOGIST Signed: 02/03/2024 16:16 CARITO BERKOWITZ [facility] Encounter Notes: All associated encounter notes This section contains the clinical notes associated to the Encounter. Date/Time Encounter Note(s) Provider Source March 03, 2024 03:01 PM NO SHOW NOTE: LOCAL TITLE: NO SHOW/CANCELLATION CLINIC NOTE STANDARD TITLE: NO SHOW NOTE DATE OF NOTE: MARCH 03, 2024@15:01 ENTRY DATE: MARCH 03, 2024@15:01:27 AUTHOR: BAM CORRALES AND EXP COSIGNER: URGENCY: STATUS: COMPLETED [place] not seen for scheduled appointment due to: No Show Appointment Rescheduled: No Will need to be called for rescheduled appointment. /los/ BAM CORRALES MS, OTR/L OCCUPATIONAL THERAPIST Signed: 03/03/2024 15:02 BAM CORRALES [facility]
--- OUTSIDE RECORDS SUMMARY | 2025-01-11 10:08 | XMS_ITS | Encounter Summary ---
Author Name [facility] [place] Organization [facility] [place] Address [address] [place] [address] Care Team Providers Care Lead Business Analyst Name Role Phone CINDY ZAMORANO Primary Care [...] Deficient saccadic eye movements DAISY SCHWARTZ [facility] Jan 03, 2025 10:04 AM SECONDARY Deficient smooth pursuit eye movements DAISY SCHWARTZ [facility] Jan 03, 2025 10:04 AM SECONDARY Esophoria DAISY SCHWARTZ [facility] Jan 03, 2025 10:04 AM SECONDARY Personal history of traumatic brain injury DAISY SCHWARTZ [facility] Plan of Treatment: Future Appointments (+ 6 months) and Future Tests (+/- 45 days) The Plan of Treatment section includes future care activities for the patient from all [place] [facility]. This section includes future appointments and future orders which are active, pending or scheduled. Future Appointments This section includes appointments that were scheduled to occur 6 months from the date of the Encounter, up to a maximum of 20 appointments. The data comes from all [facility]. Appointment Date/Time Appointment Type Appointme nt Facility Name Nov 26, 2024 09:29 AM AMBULATORY - [place]IC[place] [facility] Nov 30, 2024 11:00 AM AMBUL[place]ORY - SURGERY [place] [facility] Dec 02, 2024 08:00 AM AMBULATORY - REHAB MEDICIN E [facility] Dec 09, 2024 08:30 AM AMB[place]ORY - NONE [place] [facility] Dec 09, 2024 09:30 AM [place]ORY - NONE [place] [facility] Dec 09, 2024 10:30 AM AMBUL[place]ORY - NONE [place] [facility] Dec 09, 2024 10:45 AM AMBULATORY - SURGERY [place] [facility] Dec 13, 2024 01:00 PM AMBULATORY - REHAB MEDICIN E [facility] Dec 16, 2024 07:00 AM [place]ORY - NONE [place] [facility] Dec 21, 2024 10:00 AM AMBULATORY - REHAB MEDICIN E [facility] Dec 22, 2024 11:00 AM AMBUL[place]ORY - SURGERY [place] [facility] Dec 23, 2024 08:00 AM AMBULATORY - REHAB MEDICIN E [facility] Dec 28, 2024 01:00 PM AMBULATORY - REHAB MEDICIN E [facility] Dec 29, 2024 10:00 AM AMBULATORY - REHAB MEDICIN E [facility] Jan 02, 2025 08:30 AM AMBULATORY - REHAB MEDICIN E [facility] Jan 05, 2025 01:58 PM [place]UL[place]ORY - [place]ICINE [place] [facility] Jan 06, 2025 03:00 PM AMBULATORY - REHAB MEDICIN E [facility] Jan 10, 2025 09:00 AM AMBULATORY - REHAB MEDICIN E [facility] Jan 16, 2025 10:00 AM AMBULATORY - REHAB MEDICIN E [facility] Jan 18, 2025 09:00 AM AMBULATORY - REHAB MEDICIN E [facility] Active, Pending, and Scheduled Orders [...] CBC & DIFF BLOOD ONCO SP ONCE [facility] Nov 25, 2024 10:22 AM Consult Order OT OCCUPATIONAL THERAPY OUTPT VISION THERAPY Cons [employer] [facility] Nov 30, 2024 12:00 AM Laboratory - Chemistry Order CBC BLOOD STAT SP ONCE [facility] Nov 30, 2024 12:00 AM Laboratory - Chemistry Order CREATININE(INCLUDES EGFR) PLASMA STAT SP ONCE [facility] Nov 30, 2024 12:00 AM Laboratory - Chemistry Order PROTHROMBIN TIME/INR PLASMA STAT SP [facility] Dec 01, 2024 11:53 AM Consult Order CSP PCAFC FUNCTIONAL ASSESSMENT INSTRUMENT OUTPT [facility] Jan 03, 2025 12:08 PM Consult Order OT OCCUPATIONAL THERAPY OUTPT HOME ACCESSIBILITY [facility] Jan 05, 2025 03:02 PM Consult Order ENT OUTPT [facility] Lab Results: +/- 30 days of [...] Range Comment Dec 09, 2024 08:34 AM [facility] PROTHROMBIN TIME/INR Specimen Type: PLASMA No comment entered. Ordering Provider: FORD FRANCOIS Report Released Date/Time: Dec 06, 2024 09:29 AM Reporting Lab: [facility] [id number] Performing Lab: [facility] [address] .INR 1.1 0.8-1.1 .PT 12.9 s H 9.4-12.5 Dec 09, 2024 08:34 AM [facility] CREATININE(INCLUDES EGFR) Specimen Type: PLASMA No comment entered. Ordering Provider: FORD FRANCOIS Report Released Date/Time: Dec 06, 2024 09:29 AM Reporting Lab: [facility] [address] Performing Lab: [facility] [address] CREATININE 0.6 mg/dL 0.5-1.0 .CREAT EGFR(CKD-EPI) >90 >60 Dec 09, 2024 08:34 AM [facility] CBC & DIFF Specimen Type: BLOOD Comment: Automated Differential Performed Ordering Provider: FORD FRANCOIS Report Released Date/Time: Dec 06, 2024 09:29 AM Reporting Lab: [facility] [address] Performing Lab: [facility] [address] WBC 4.4 4.0-11.0 RBC 4.42 4.00-5.40 HGB [...] 0.0 0.0-0.1 Nov 22, 2024 09:45 AM [facility] URIC ACID Specimen Type: PLASMA No comment entered. Ordering Provider: KURT NEWELL Report Released Date/Time: Apr 26, 2024 10:33 AM Reporting Lab: [facility] [address] Performing Lab: [facility] [address] URIC ACID 5.4 mg/dL 2.5-6.2 Nov 22, 2024 09:45 AM [facility] LD,TOTAL Specimen Type: PLASMA No comment entered. Ordering Provider: KURT NEWELL Report Released Date/Time: Apr 26, 2024 10:33 AM Reporting Lab: [facility] [address] Performing Lab: [facility] [address] LD,TOTAL 194 U/L 125-220 Nov 22, 2024 09:45 AM [facility] COMPREHENSIVE METABOLIC PANEL+MG Specimen Type: PLASMA No comment entered. Ordering Provider: KURT NEWELL Report Released Date/Time: Apr 26, 2024 10:33 AM Reporting Lab: [facility] [address] Performing Lab: [facility] [address] CREATININE 0.6 mg/dL 0.5-1.0 UREA NITROGEN 12 [...] >90 >60 Nov 22, 2024 09:44 AM [facility] CBC & DIFF Specimen Type: BLOOD Comment: Automated Differential Performed Ordering Provider: KURT NEWELL Report Released Date/Time: Oct 25, 2024 10:32 AM Reporting Lab: [facility] [address] Performing Lab: [facility] [address] WBC 5.4 4.0-11.0 RBC 4.58 4.00-5.40 HGB [...] 0.0 0.0-0.1 Nov 15, 2024 12:58 PM [facility] FINGERSTICK GLUCOSE Specimen Type: BLOOD Comment: Save Result Ordering Provider: LISANDRA ZAMORANO Report Released Date/Time: Nov 17, 2024 07:56 AM Reporting Lab: [facility] [address] Performing Lab: [facility] [address] FINGERSTICK GLUCOSE 87 mg/dL 70-100 Radiology Reports: [...] Dec 16, 2024 07:03 AM MRI-BRAIN (P): VALERIEARMENADRIEN MODESTO [id number] -1990 F Exm Date: DEC 16, 2024@07:03 Req Phys: STEPHEN FRANCOIS Pat Loc: [facility] NEUROSURG CHARGEBACK SPECIALIST CONSULT-A (Re Img Loc: MRI IMAGING Service: Unknown Screen: [place] [address] (Case [id number] COMPLETE) MRI BRAIN/BRAINSTEM W/O CONTRAST (MRI Detailed) CPT:07091 Reason for Study: Myelopathy Clinical History: Did the ordering provider speak with a database consultant regarding this imaging exam?No Brain MRI without contrast Myelopathy LAST CREATININE 0.6 (11/22/24) Allergies: METOPROLOL (Jan 14, 2023) REGLAN (Jan 14, 2023) My pager number on record is: [phone]. The pager number/cell phone number above is [...] 16, 2024 Date Verified: DEC 16, 2024 Craft Artist E-Sig:/ES/SUJIT DENIS MD Report: MRI BRAIN/BRAINSTEM W/O [...] Primary Interpreting Staff: SUJIT DENIS MD, RADIOLOGIST (Craft Artist) /CDC SUJIT DENIS [facility] Dec 09, 2024 09:[address] MYELOGRAM [facility] (P): AWAIS PADILLA [id number] -1990 F Exm Date: DEC 09, 2024@09:52 Req Phys: STEPHEN FRANCIOS Pat Loc: [facility] NEUROSURG CHARGEBACK SPECIALIST CONSULT-A (Re Img Loc: CT IMAGING Service: Unknown Screen: [place] [address] (Case [id number] COMPLETE) CT MYELOGRAM THORACIC SPINE (CT Detailed) CPT:50263 CPT Modifiers : 59 DISTINCT PROCEDURAL SERVICE [...] PLASMA .CREAT EGFR(CKD-E >90 Ref: >=60 Allergies: ([place] only) METOPROLOL (Jan 14, 2023) REGLAN (Jan 14, 2023) Defer to radiologist for final CT protocol. User Placing Order: STEPHEN FRANCOIS - Office Phone: My pager number on record is: [phone]. The pager number/cell phone number above is NOT correct for reporting critical results, I have entered my correct number below: My correct contact # for critial results is:neurosurgery vertical contour band saw operator Trainees only: Enter your staff provider's info here: Per Joint Commission Standards, by signing this diagnostic imaging request the ordering provider confirms they have considered patients age and recent imaging history. Report Status: Verified Date Reported: DEC 09, 2024 Date Verified: DEC 09, 2024 Craft Artist E-Sig:/ES/CARITO POLANCO MD Report: CT Thoracic Spine [...] Primary Interpreting Staff: CARITO POLANCO MD, RADIOLOGIST (Craft Artist) /CARITO TOLENTINO [facility] Dec 09, 2024 08:50 AM MYELOGRAM THORACIC (P): AWAIS PADILLA [id number] -1990 F Exm Date: DEC 09, 2024@08:50 Req Phys: STEPHEN FRANCOIS Pat Loc: [facility] NEUROSURG CHARGEBACK SPECIALIST CONSULT-A (Re Img Loc: MAIN X-RAY Service: Unknown [place]: [place] [address] (Case [id number] COMPLETE) MYELOGRAM THORACIC VIA LUMBAR INJ(RAD Detailed) CPT:52831 Reason for Study: Eval for arachnoid web or cyst at T6 level Clinical History: myelopathy Outside hosptial Thoracic mri w wo contrast is loaded into [facility]AGE. Please do comparison . thank you Responsible provider name and phone number to notify for critical findings if other than user placing the order and pager listed below: User placing orders pager: [phone] Neurosurgery vertical contour band saw operator LAST CREATININE 0.6 (11/22/24) Report Status: Verified Date Reported: DEC 09, 2024 Date Verified: DEC 09, 2024 Craft Artist E-Sig:/ES/CARIOT POLANCO MD Report: PROCEDURE: Lumbar puncture with fluoroscopic guidance. Thoracic myelogram. History: Myelopathy. Thoracic MRI shows dorsal lesion at T6. Comparison: Outside recent thoracic MRI exam from the [facility]. Fluoro time: 0.8 minute Dose: Air Kerma: 3.9, mGy, DAP: 3.54, dGy.cm? PROCEDURE: The patient/medical decision-maker understood the limitations, alternatives, and risks of the procedure and requested the procedure be performed. Both iMed and oral consent were obtained. A pre-procedural Time-Out was performed per [facility] policy. The patient was prepped and [...] Primary Interpreting Staff: CARITO POLANCO MD, RADIOLOGIST (Craft Artist) /CARITO TOLENTINO [facility] Nov 22, 2024 07:12 PM NON [place] MRI THORACI C SPINE: AWAIS PADILLA [id number] -1990 F Exm Date: NOV 22, 2024@19:12 Req Phys: CINDY ZAMORANO Loc: [facility] XRAY GENERAL AM (Req'g Loc Img Loc: OUTSOURCE MRI Service: Unknown Screen: Patient answered no (Case [id number] COMPLETE) NON [place] MRI THORACIC SPINE (MRI Detailed) CPT:97965 Reason for Study: OUTSIDE STUDY Clinical History: [...] Diagnostic Code: VERIFIED BY: / *ELECTRONICALLY FILED* [facility] Nov 15, 2024 12:[address] BODY W/O CO NTRAST (P): AWAIS PADILLA [id number] -1990 F Exm Date: NOV 15, 2024@12:39 Req Phys: KURT NEWELL Pat Loc: [facility] ONC [facility] (Req'g Loc) Img Loc: NUC MED Service: Unknown [place]: [place] [address] (Case [id number] COMPLETE) SKULL-THIGH PET IMAGE W/CT (NM Detailed) CPT:32368 Reason for Study: Evaluation for malignacy (Case [...] pager listed below: User placing orders pager: [phone] LAST CREATININE 0.6 (07/24/24) Report Status: Verified Date Reported: NOV 15, 2024 Date Verified: NOV 15, 2024 Craft Artist E-Sig:/ES/CAIN SMART MD Report: PET/CT SCAN INDICATION: [...] Staff: CAIN SMART MD, RADIOLOGY STAFF PHYSICIAN (Craft Artist) /CAIN CR [facility] Nov 10, 2024 10:23 AM NON [place] THORACI C SPINE: AWAIS PADILLA [id number] -1990 F Exm Date: NOV 10, 2024@10:23 Req Phys: CINDY ZAMORANO Loc: [facility] XRAY GENERAL AM (Req'g Loc Img Loc: OUTSOURCE MRI Service: Unknown Screen: Patient answered no (Case 192 COMPLETE) NON [place] MRI THORACIC SPINE (MRI Detailed) CPT:69768 Reason for Study: OUTSIDE STUDY Clinical History: [...] Diagnostic Code: VERIFIED BY: / *ELECTRONICALLY FILED* [facility] Nov 10, 2024 10:03 AM NON [place] MRI CERVICA L SPINE: AWAIS PADILLA [id number] -1990 F Exm Date: NOV 10, 2024@10:03 Req Phys: CINDY ZAMORANO Loc: [facility] XRAY GENERAL AM (Req'g Loc Img Loc: OUTSOURCE MRI Service: Unknown Screen: Patient answered no (Case [id number] COMPLETE) NON [place] MRI CERVICAL SPINE (MRI Detailed) CPT:51966 Reason for Study: OUTSIDE STUDY Clinical History: [...] Diagnostic Code: VERIFIED BY: / *ELECTRONICALLY FILED* [facility] Nov 10, 2024 09:46 AM NON [place] LUMBAR SPINE: AWAIS PADILLA [id number] -1990 F Exm Date: NOV 10, 2024@09:46 Req Phys: CINDY ZAMORANO Loc: [facility] XRAY GENERAL AM (Req'g Loc Img Loc: OUTSOURCE MRI Service: Unknown Screen: Patient answered no (Case [id number] COMPLETE) NON [place] LUMBAR SPINE (MRI Detailed) CPT:97670 Reason for Study: OUTSIDE STUDY Clinical History: [...] Diagnostic Code: VERIFIED BY: / *ELECTRONICALLY FILED* [facility] Encounter Notes: All associated encounter notes This section contains the clinical notes associated to the Encounter. Date/Time Encounter Note(s) Provider Source Nov 25, 2024 08:55 AM BUSHING PRESS OPERATOR NOTE: LOCAL TITLE: BUSHING PRESS OPERATOR NOTE STANDARD TITLE: BUSHING PRESS OPERATOR NOTE DATE OF NOTE: NOV 25, 2024@08:55 ENTRY DATE: NOV 25, 2024@08:55:59 AUTHOR: PHILLIP HATCH COSIGNER: URGENCY: STATUS: COMPLETED Eye Start Exam Patient: AWAIS PADILLA Sex: FEMALE SSN: [id number] Birthdate: [birth year] Chief complaint: Binocular vision follow [...] less than 60 - Maternal grandfather of [place] at 50 8. History of cerebrospinal fluid [...] pressure (IOP): OD: 16 OS: 16 iCare /es/ [facility] Signed: 11/25/2024 09:51 PHILLIP HATCH [facility] Nov 25, 2024 06:48 AM OPTOMETRY NOTE: [...] TBI-maybe breif LOC, +AOC and no true CORE STACKER Injury 2 (12/24/2021): Mild TBI-No LOC or CORE STACKER, +AOC PMHx: headache POHx: vitreoretinal tuft OS [...] eye and she needed to see an music instructor. She reports this has not occurred. Last OT: 01/29/2024 (session #2) Nature of head injury: mTBI Area of cerebral cortex effected, if specified: not specified Loss of conciousness? yes Duration? few seconds Neuroimaging date/Results: CT SCAN BRAIN 08/09/2011 [facility]: FINDINGS: There is normal density, size and [...] chair, no postural shift Entering VAcc OD: 20/20 OS: 20/20 External Exam: Within Normal Limits PERRL (-)APD [...] Syneresis Lens: clear IOP (iCare per tech): 16/16 A/P 1. Traumatic brain injury -Binocular vision: [...] 30 minutes /los/ EUGENIA SCHWARTZ OD STAFF JUNIOR ACCOUNTANT Signed: 11/25/2024 10:24 EUGENIA SCHWARTZ [facility]
--- OUTSIDE RECORDS SUMMARY | 2025-01-11 10:08 | XMS_ITS | Encounter Summary ---
Author Name [facility] Organization [facility] Address [address] [place] [address] Care Team Providers Care Jewellery Designer Name Role Phone CINDY ZAMORANO Primary Care Provider Unavail able Selected Encounter This section includes the information on record at ID for the Encounter. Date/Time Encounter Type Encounter Description Reason Pro vider Source Jan 10, 2025 09:00 AM Outpatient Encounter OCCUPATIONAL THERAPY IHE Encounter Template Text not used by ID Plan of Treatment: Future Appointments (+ 6 months) and Future Tests (+/- 45 days) The Plan of Treatment section includes future care activities for the patient from all ID treatmentfacilities. This section includes future appointments and future orders which are active, pending or scheduled. Future Appointments This section includes appointments that were scheduled to occur 6 months from the date of the Encounter, up to a maximum of 20 appointments. The data comes from all ID treatment facilities. Appointment Date/Time Appointment Type Appointme nt Facility Name Jan 16, 2025 10:00 AM AMBULATORY - [facility]AB [facility] Jan 18, 2025 09:00 AM AMBULATORY - REHAB MEDICIN [facility] Jan 23, 2025 09:00 AM AMBULATORY - REHAB MEDICIN [facility] Jan 25, 2025 09:00 AM AMBULATORY - REHAB MEDICIN [facility] February 21, 2025 10:00 AM AMBULATORY - NONE ANIVAL GARCIA [facility] February 21, 2025 11:00 AM AMBULATORY - MEDICINE KARTIK KEY [facility] February 28, 2025 01:00 PM AMBULATORY - REHAB MEDICWY E [facility] March 14, 2025 02:00 PM AMBULATORY - REHAB MEDICIN E [facility] Apr 28, 2025 09:30 AM AMBULATORY - SURGERY [facility] Active, Pending, and Scheduled Orders This section includes a listing of several types of active, pending, and scheduled orders, including clinic medications orders, diagnostic test orders, procedure orders and consult orders; where the start date of the order is 45 days before the date of the Encounter or 45 days after the date of theEncounter. The data comes from all ID treatment facilities. Test Date/Time Test Type Test Details Facility Name Nov 30, 2024 12:00 AM Laboratory - Chemistry Order CBC BLOOD STAT SP ONCE [facility] Nov 30, 2024 12:00 AM Laboratory - Chemistry Order CREATININE(INCLUDES EGFR) PLASMA STAT SP [facility] Nov 30, 2024 12:00 AM Laboratory - Chemistry Order PROTHROMBIN TIME/INR PLASMA STAT SP [facility] Dec 01, 2024 11:53 AM Consult Order CSP PCAFC FUNCTIONAL ASSESSMENT INSTRUMENT OUTPT Cons Flat Knitter Helpers [facility] Jan 03, 2025 12:08 PM Consult Order OT OCCUPAT IONAL THERAPY OUTPT HOME ACCESSIBILITY Cons Flat Knitter Helpers [facility] Jan 05, 2025 03:02 PM Consult Order [facility] 21, [facility]25 12:00 AM Laboratory - Chemistry Order COMPREHENSIVE METABOLIC PANEL+MG PLASMA ONCO SP [facility] February 21, 2025 12:00 AM Laboratory - Chemistry Order CBC & DIFF BLOOD ONCO SP ONCE [facility] Social History: Smoking Status (Most current) and Tobacco Use (All prior to encounter date) This section includes the most current, and the historical, smoking and tobacco- related health factors from the ID facility where the Encounter took place. Current Smoking Status This section includes the most current smoking, or tobacco-related health factor, from the ID facility where the Encounter took place. Date/Time Current Smoking Status Sandra zaldivar Nov 27, 2023 03:30 PM VA-TOBACCO FORMER USER [facility] Tobacco Use History This section includes a history of the smoking, or tobacco-related health factors, that were collected on or before the date of the Encounter. The data comes from the ID facility where the Encounter took place. Date/Time Smoking Status/Tobacco Use Comment F acility Nov 27, 2023 03:30 PM VA-TOBACCO QUIT 5 TO < 15 YRS [facility] Jan 14, 2023 09:03 AM VA-TOBACCO FORMER USER [facility] Jan 14, 2023 09:03 AM VA-TOBACCO QUIT 5 TO < 15 YRS [facility] Radiology Reports: +/- 30 days of [...] the Encounter. The data comes from all ID treatment facilities. Date/Time Radiology Report Provider Source Dec 16, 2024 07:03 AM MRI-BRAIN (P): AWAIS PADILLA [id number] -1990 F Exm Date: DEC 16, 2024@07:03 Req Phys: STEPHEN FRANCOIS Pat Loc: [facility] NEUROSURG BILINGUAL ADMINISTRATIVE ASSISTANT CONSULT-A (Re Img Loc: MRI IMAGING Service: Unknown Screen: [place] [address] (Case [id number] COMPLETE) MRI BRAIN/BRAINSTEM W/O CONTRAST (MRI Detailed) CPT:53245 Reason for Study: Myelopathy Clinical History: Did the ordering provider speak with a direct response consultant regarding this imaging exam?No Brain MRI without contrast Myelopathy LAST CREATININE 0.6 (11/22/24) Allergies: METOPROLOL (Jan 14, 2023) REGLAN (Jan 14, 2023) My pager number on record is: [phone]. The pager number/cell phone number above is [...] 16, 2024 Date Verified: DEC 16, 2024 Finisher Plate E-Sig:/ES/SUJIT DENIS MD Report: MRI BRAIN/BRAINSTEM W/O [...] Primary Interpreting Staff: SUJIT DENIS MD, RADIOLOGIST (Finisher Plate) /[facility] SUJIT DENIS [facility]
--- OUTSIDE RECORDS SUMMARY | 2025-01-11 10:08 | XMS_ITS | Encounter Summary ---
Author Name [facility] [place] [facility] [place] Organization [facility] [place] Address [address] [place] [id number] Care Team Providers Care Fashion Stylist Name Role Phone CINDY ZAMORANO Primary Care Provider Unavail able Selected Encounter This section includes the information on record at [place] for the Encounter. Date/Time Encounter Type Encounter Description Reason Pro vider Source IHE Encounter Template Text not used by [place]
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
--- OUTSIDE RECORDS SUMMARY | 2025-01-11 10:08 | XMS_ITS | Encounter Summary ---
Author Name [facility] Organization [facility] [place] Address [address] [place] [address] Care Team Providers Care Auto Fleet Maintenance Manager Name Role Phone CINDY ZAMORANO Primary Care Provider Unavail able Selected Encounter This section includes the information on record at CT for the Encounter. Date/Time Encounter Type Encounter Description Reason Pro vider Source Jan 09, 2025 10:35 AM Outpatient Encounter AUDIOLOGY IHE Encounter Template Text not used by CT Plan of Treatment: Future Appointments (+ 6 months) and Future Tests (+/- 45 days) The Plan of Treatment section includes future care activities for the patient from all CT treatmentfacilities. This section includes future appointments and future orders which are active, pending or scheduled. Future Appointments This section includes appointments that were scheduled to occur 6 months from the date of the Encounter, up to a maximum of 20 appointments. The data comes from all CT treatment facilities. Appointment Date/Time Appointment Type Appointme nt Facility Name Jan 10, 2025 09:00 AM AMBULATORY - [facility]AB [facility] Jan 16, 2025 10:00 AM [facility] Jan 18, 2025 09:00 AM [facility] Jan 23, 2025 09:00 AM [facility] Jan 25, 2025 09:00 AM AMBULATORY - REHAB MEDICIN [facility] February 21, 2025 10:00 AM AMBULATORY - NONE ANIVAL GARCIA [facility] February 21, 2025 11:00 AM AMBULATORY - MEDICINE KARTIK KEY [facility] February 28, 2025 01:00 PM AMBULATORY - REHAB MEDICIN E [facility] March 14, 2025 02:00 PM AM[facility]ULATORY - REHAB [facility] Apr 28, 2025 09:30 AM AMBULATORY - SURGERY [facility] Active, Pending, and Scheduled Orders This section includes a listing of several types of active, pending, and scheduled orders, including clinic medications orders, diagnostic test orders, procedure orders and consult orders; where the start date of the order is 45 days before the date of the Encounter or 45 days after the date of theEncounter. The data comes from all CT treatment facilities. Test Date/Time Test Type Test Details Facility Name Nov 25, 2024 10:22 AM Consult Order OT OCCUPATIONAL THERAPY OUTPT VISION THERAPY Cons Robot Operator's Choice [facility] Nov 30, 2024 12:00 AM Laboratory - Chemistry Order CBC BLOOD STAT SP ONCE [facility] Nov 30, 2024 12:00 AM Laboratory - Chemistry Order CREATININE(INCLUDES EGFR) PLASMA STAT SP ONCE [facility] Nov 30, 2024 12:00 AM Laboratory - Chemistry Order PROTHROMBIN TIME/INR PLASMA STAT SP [facility] Dec 01, 2024 11:53 AM Consult Order CSP PCAFC FUNCTIONAL ASSESSMENT INSTRUMENT OUTPT Cons Robot Operator's [facility] Jan 03, 2025 12:08 PM Consult Order OT OCCUPATIONAL THERAPY OUTPT HOME ACCESSIBILITY Cons Robot Operator's [facility] Jan 05, 2025 03:02 PM Consult Order ENT OUTPT Cons Robot Operator's [facility] February 21, 2025 12:00 AM Laboratory - Chemistry Order CBC & DIFF BLOOD ONCO SP ONCE [facility] February 21, 2025 12:00 AM Laboratory - Chemistry Order COMPREHENSIVE METABOLIC PANEL+MG PLASMA ONCO SP [facility] Social History: Smoking Status (Most current) and Tobacco Use (All prior to encounter date) This section includes the most current, and the historical, smoking and tobacco- related health factors from the CT facility where the Encounter took place. Current Smoking Status This section includes the most current smoking, or tobacco-related health factor, from the [place] facility where the Encounter took place. Date/Time Current Smoking Status Comment Srini ity Nov 27, 2023 03:30 PM VA-TOBACCO QUIT 5 TO < [address] [facility] Tobacco Use History This section includes a history of the smoking, or tobacco-related health factors, that were collected on or before the date of the Encounter. The data comes from the CT facility where the Encounter took place. Date/Time [...] the Encounter. The data comes from all CT treatment facilities. Date/Time Radiology Report Provider Source Dec 16, 2024 07:03 AM MRI-BRAIN (P): AWAIS PADILLA [id number] -[id number] F Exm Date: DEC 16, 2024@07:03 Req Phys: STEPHEN FRANCOIS Pat Loc: [facility] NEUROSURG DEV MANAGER CONSULT-A (Re Img Loc: MRI IMAGING Service: Unknown Screen: [place] [address] (Case [id number] COMPLETE) MRI BRAIN/BRAINSTEM W/O CONTRAST (MRI Detailed) CPT:19253 Reason for Study: Myelopathy Clinical History: Did the ordering provider speak with a data consultant regarding this imaging exam?No Brain MRI without contrast Myelopathy LAST CREATININE 0.6 (11/22/24) Allergies: METOPROLOL (Jan 14, 2023) REGLAN (Jan 14, 2023) My pager number on record is: [phone]. The pager number/cell phone number above is [...] 16, 2024 Date Verified: DEC 16, 2024 [facility] [place] E-Sig:/ES/SUJIT DENIS MD Report: MRI BRAIN/BRAINSTEM W/O [...] Primary Interpreting Staff: SUJIT DENIS MD, RADIOLOGIST (Side Sawyer) /[facility] SUJIT DENIS [facility] Encounter Notes: All associated encounter notes This section contains the clinical notes associated to the Encounter. Date/Time Encounter Note(s) Provider Source Jan 09, 2025 10:35 AM REPORT OF CONTACT: LOCAL TITLE: APPOINTMENT SCHEDULING NOTE STANDARD TITLE: REPORT OF CONTACT DATE OF NOTE: JAN 09, 2025@10:35 ENTRY DATE: JAN 09, 2025@10:35:31 AUTHOR: PEDRO KO COSIGNER: URGENCY: STATUS: COMPLETED Attempted to schedule Return to clinic (RTC) Contact attempt made to 1st attempt Telephone 2nd attempt Letter - Sent letter by regular [place] mail to address on file: AWAIS PADILLA [id number], [place] [address] Disposition order request after Jan Left message on voice mail to call back to this number [phone] If [place] calls back, schedule appt for: Return to [facility] AUDIO ENT.2S on or around ( Jan 05, 2025 )for a total of 1 appointment(s)Audiogram query SAM smith /los/ PEDRO KO [facility] BREEDING 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
--- OUTSIDE RECORDS SUMMARY | 2025-01-11 10:08 | XMS_ITS | Encounter Summary ---
Author Name [facility] [place] [facility] [place] Organization [facility] [place] Address [address] [place] [id number] Care Team Providers Care Fusing Machine Tender Name Role Phone MARÍA SEAY Primary Care Provider Unavail able Selected Encounter This section includes the information on record at [place] for the Encounter. Date/Time Encounter Type Encounter Description Reason Provider Source Dec 07, 2024 08:22 AM Outpatient Encounter PRIMARY CARE/MEDICINE YENNI SALINAS Encounter Template Text not used by [place] Plan of Treatment: Future Appointments (+ 6 months) and Future Tests (+/- 45 days) The Plan of Treatment section includes future care activities for the patient from all [place] treatmentfacilities. This section includes future appointments and future orders which are active, pending or scheduled. Future Appointments This section includes appointments that were scheduled to occur 6 months from the date of the Encounter, up to a maximum of 20 appointments. The data comes from all [place] treatment facilities. Appointment Date/Time Appointment Type Appointme nt Facility Name Dec 09, 2024 08:30 AM [facility] NONE [facility] Dec 09, 2024 09:30 AM [facility]ONE [place] [facility] Dec 09, 2024 10:30 AM [facility]ONE [place] [facility] Dec 09, 2024 10:45 AM [facility]ORY [facility] SURG[facility] Dec 13, 2024 01:00 PM AMBULATORY - REHAB MEDICIN [facility] Dec 16, 2024 07:00 AM AMBULATORY - NONE [facility] Dec 21, 2024 10:00 AM AMBULATORY - REHAB MEDICIN E [facility] Dec 22, 2024 11:00 AM AMBULATORY - SURGERY [facility] Dec 23, 2024 08:00 AM AMBULATORY - REHAB MEDICIN E [facility] Dec 28, 2024 01:00 PM AMBULATORY - REHAB MEDICIN E [facility] Dec 29, 2024 10:00 AM AMBULATORY - REHAB MEDICIN E [facility] Jan 02, 2025 08:30 AM AMBULATORY - REHAB MEDICIN E [facility] Jan 05, 2025 01:58 PM AMBULATORY - MEDICINE [facility] Jan 06, 2025 03:00 PM AMBULATORY - REHAB MEDICIN E [facility] Jan 10, 2025 09:00 AM AMBULATORY - REHAB MEDICIN E [facility] Jan 16, 2025 10:00 AM AMBULATORY - REHAB MEDICIN E [facility] Jan 18, 2025 09:00 AM AMBULATORY - REHAB MEDICIN E [facility] Jan 23, 2025 09:00 AM AMBULATORY - REHAB MEDICIN E [facility] Jan 25, 2025 09:00 AM AMBULATORY - REHAB MEDICIN E [facility] February 21, 2025 10:00 AM AMBULATORY - NONE [facility] Active, Pending, and Scheduled Orders This section includes a listing of several types of active, pending, and scheduled orders, including clinic medications orders, diagnostic test orders, procedure orders and consult orders; where the start date of the order is 45 days before the date of the Encounter or 45 days after the date of theEncounter. The data comes from all [place] treatment facilities. Test Date/Time Test Type Test Details Facility Name Oct 25, 2024 12:00 AM Laboratory - Chemistry Order CBC & DIFF BLOOD ONCO SP ONCE [facility] Nov 25, 2024 10:22 AM Consult Order OT OCCUPATIONAL THERAPY OUTPT VISION THERAPY Cons Educational Interpreter's Choice [facility] Nov 30, 2024 12:00 AM Laboratory - Chemistry Order CBC BLOOD STAT SP ONCE [facility] Nov 30, 2024 12:00 AM Laboratory - Chemistry Order CREATININE(INCLUDES EGFR) PLASMA STAT SP ONCE [facility] Nov 30, 2024 12:00 AM Laboratory - Chemistry Order PROTHROMBIN TIME/INR PLASMA STAT SP [facility] Dec 01, 2024 11:53 AM Consult Order CSP PCAFC FUNCTIONAL ASSESSMENT INSTRUMENT OUTPT Cons Educational Interpreter's Choice [facility] Jan 03, 2025 12:08 PM Consult Order OT OCCUPATIONAL THERAPY OUTPT HOME ACCESSIBILITY Cons Educational Interpreter's Choice [facility] Jan 05, 2025 03:02 PM Consult Order ENT OUTPT Cons Educational Interpreter's Choice [facility] Lab Results: +/- 30 days of the encounter This section includes the Chemistry and Hematology Lab Results on record with [place] for the patient. Radiology Reports and Pathology Reports are provided separately, in subsequent sections. Lab Results This section contains the Chemistry/Hematology Results that were resulted 30 days before or 30 daysafter the date of the Encounter. Date/Time Source Result Type Result - Unit Interpretation Reference Range Comment Dec 09, 2024 08:34 AM [facility] PROTHROMBIN TIME/INR Specimen Type: PLASMA No comment entered. Ordering Provider: FORD FRANCOIS Report Released Date/Time: Dec 06, 2024 09:29 AM Reporting Lab: [facility] [id number] Performing Lab: [facility] [id number] .INR 1.1 0.8-1.1 .PT 12.9 s H 9.4-12.5 Dec 09, 2024 08:34 AM [facility] CREATININE(INCLUDES EGFR) Specimen Type: PLASMA No comment entered. Ordering Provider: FORD FRANCOIS Report Released Date/Time: Dec 06, 2024 09:29 AM Reporting Lab: [facility] [id number] Performing Lab: [facility] [address] CREATININE 0.6 mg/dL 0.5-1.0 .CREAT EGFR(CKD-EPI) >90 >60 Dec 09, 2024 08:34 AM [facility] CBC & DIFF Specimen Type: BLOOD Comment: Automated Differential Performed Ordering Provider: FORD FRANCOIS Report Released Date/Time: Dec 06, 2024 09:29 AM Reporting Lab: [facility] [phone] Performing Lab: [facility] [id number] WBC 4.4 4.0-11.0 RBC 4.42 4.00-5.40 HGB [...] 0.0 0.0-0.1 Nov 22, 2024 09:45 AM [facility] URIC ACID Specimen Type: PLASMA No comment entered. Ordering Provider: KURT NEWELL Report Released Date/Time: Apr 26, 2024 10:33 AM Reporting Lab: [facility] [phone] Performing Lab: [facility] [address] URIC ACID 5.4 mg/dL 2.5-6.2 Nov 22, 2024 09:45 AM [facility] LD,TOTAL Specimen Type: PLASMA No comment entered. Ordering Provider: KURT NEWELL Report Released Date/Time: Apr 26, 2024 10:33 AM Reporting Lab: [facility] [phone] Performing Lab: [facility] [address] LD,TOTAL 194 U/L 125-220 Nov 22, 2024 09:45 AM [facility] COMPREHENSIVE METABOLIC PANEL+MG Specimen Type: PLASMA No comment entered. Ordering Provider: KURT NEWELL Report Released Date/Time: Apr 26, 2024 10:33 AM Reporting Lab: [facility] [phone] Performing Lab: [facility] [address] CREATININE 0.6 mg/dL 0.5-1.0 UREA NITROGEN 12 [...] >90 >60 Nov 22, 2024 09:44 AM [facility] CBC & DIFF Specimen Type: BLOOD Comment: Automated Differential Performed Ordering Provider: KURT NEWELL Report Released Date/Time: Oct 25, 2024 10:32 AM Reporting Lab: [facility] [phone] Performing Lab: [facility] [phone] WBC 5.4 4.0-11.0 RBC 4.58 4.00-5.40 HGB [...] 0.0 0.0-0.1 Nov 15, 2024 12:58 PM [facility] FINGERSTICK GLUCOSE Specimen Type: BLOOD Comment: Save Result Ordering Provider: LISANDRA SEAY Report Released Date/Time: Nov 17, 2024 07:56 AM Reporting Lab: [facility] [phone] Performing Lab: [facility] [phone] FINGERSTICK GLUCOSE 87 mg/dL 70-100 Social History: Smoking Status (Most current) and Tobacco Use (All prior to encounter date) This section includes the most current, and the historical, smoking and tobacco- related health factors from the [place] facility where the Encounter took place. Current Smoking Status This section includes the most current smoking, or tobacco-related health factor, from the [place] facility where the Encounter took place. Date/Time Current Smoking Status Comment Facil ity Nov 27, 2023 03:30 PM VA-TOBACCO FORMER USER [facility] Tobacco Use History This section includes a history of the smoking, or tobacco-related health factors, that were collected on or before the date of the Encounter. The data comes from the [place] facility where the Encounter took place. Date/Time Smoking Status/Tobacco Use Comment F acility Nov 27, 2023 03:30 PM VA-TOBACCO QUIT 5 TO < 15 YRS [facility] Jan 14, 2023 09:03 AM VA-TOBACCO FORMER USER [facility] Jan 14, 2023 09:03 AM VA-TOBACCO QUIT 5 TO < 15 YRS [facility] Radiology Reports: +/- 30 days of [...] the Encounter. The data comes from all [place] treatment facilities. Date/Time Radiology Report Provider Source Dec 16, 2024 07:03 AM MRI-BRAIN (P): AWAIS PADILLA [id number] -1990 F Exm Date: DEC 16, 2024@07:03 Req Phys: STEPHEN FRANCOIS Evelyn Loc: [facility] NEUROSURG RESOURCING ADVISOR CONSULT-A (Re Img Loc: MRI IMAGING Service: Unknown Screen: [place] [address] (Case [id number] COMPLETE) MRI BRAIN/BRAINSTEM W/O CONTRAST (MRI Detailed) CPT:36018 Reason for Study: Myelopathy Clinical History: Did the ordering provider speak with a senior sales consultant regarding this imaging exam?No Brain MRI without contrast Myelopathy LAST CREATININE 0.6 (11/22/24) Allergies: METOPROLOL (Jan 14, 2023) REGLAN (Jan 14, 2023) My pager number on record is: [phone]. The pager number/cell phone number above is [...] 16, 2024 Date Verified: DEC 16, 2024 Film Processor E-Sig:/ES/SUJIT DENIS MD Report: MRI BRAIN/BRAINSTEM W/O [...] Primary Interpreting Staff: SUJIT DENIS MD, RADIOLOGIST (Film Processor) /[facility] SUJIT DENIS [facility] Dec 09, 2024 09:[address] MYELOGRAM THORA CIC (P): AWAIS PADILLA [id number] -1990 F Exm Date: DEC 09, 2024@09:52 Req Phys: STEPHEN FRANCOIS Pat Loc: [facility] NEUROSURG RESOURCING ADVISOR CONSULT-A (Re Img Loc: CT IMAGING Service: Unknown Screen: [place] [address] (Case [id number] COMPLETE) CT MYELOGRAM THORACIC SPINE (CT Detailed) CPT:68813 CPT Modifiers : 59 DISTINCT PROCEDURAL SERVICE [...] PLASMA .CREAT EGFR(CKD-E >90 Ref: >=60 Allergies: ([place] only) METOPROLOL (Jan 14, 2023) REGLAN (Jan 14, 2023) Defer to radiologist for final CT protocol. User Placing Order: STEPHEN FRANCOIS - Office Phone: My pager number on record is: [phone]. The pager number/cell phone number above is NOT correct for reporting critical results, I have entered my correct number below: My correct contact # for critial results is:neurosurgery fashion show director Trainees only: Enter your staff provider's info here: Per Joint Commission Standards, by signing this diagnostic imaging request the ordering provider confirms they have considered patients age and recent imaging history. Report Status: Verified Date Reported: DEC 09, 2024 Date Verified: DEC 09, 2024 Film Processor E-Sig:/ES/CARITO POLANCO MD Report: CT Thoracic Spine [...] Primary Interpreting Staff: CARITO POLANCO MD, RADIOLOGIST (Film Processor) /CARITO TOLENTINO [facility] Dec 09, 2024 08:50 AM MYELOGRAM THORACIC (P): AWAIS PADILLA [id number] -1990 F Exm Date: DEC 09, 2024@08:50 Req Phys: STEPHEN FRANCOIS Pat Loc: [facility] NEUROSURG RESOURCING ADVISOR CONSULT-A (Re Img Loc: MAIN X-RAY Service: Unknown Screen: [place] [address] (Case [id number] COMPLETE) MYELOGRAM THORACIC VIA LUMBAR INJ(RAD Detailed) CPT:11784 Reason for Study: Eval for arachnoid web or cyst at T6 level Clinical History: myelopathy Outside hosptial Thoracic mri w wo contrast is loaded into [facility]. Please do comparison . thank you Responsible provider name and phone number to notify for critical findings if other than user placing the order and pager listed below: User placing orders pager: [phone] Neurosurgery fashion show director LAST CREATININE 0.6 (11/22/24) Report Status: Verified Date Reported: DEC 09, 2024 Date Verified: DEC 09, 2024 Film Processor E-Sig:/ES/CARITO POLANCO MD Report: PROCEDURE: Lumbar puncture with fluoroscopic guidance. Thoracic myelogram. History: Myelopathy. Thoracic MRI shows dorsal lesion at T6. Comparison: Outside recent thoracic MRI exam from the [facility] [address]. Fluoro time: 0.8 minute Dose: Air Kerma: 3.9, mGy, DAP: 3.54, dGy.cm? PROCEDURE: The patient/medical decision-maker understood the limitations, alternatives, and risks of the procedure and requested the procedure be performed. Both iMed and oral consent were obtained. A pre-procedural Time-Out was performed per [facility] policy. The patient was prepped and [...] Primary Interpreting Staff: CARITO POLANCO MD, RADIOLOGIST (Film Processor) /CARITO TOLENTINO [facility] Nov 22, 2024 07:12 PM NON [place] MRI THORACI C SPINE: AWAIS PADILLA [id number] -1990 F Exm Date: NOV 22, 2024@19:12 Req Phys: MARÍA SEAY Loc: [facility] XRAY GENERAL AM (Req'g Loc Img Loc: OUTSOURCE MRI Service: Unknown Screen: Patient answered no (Case [id number] COMPLETE) NON [place] MRI THORACIC SPINE (MRI Detailed) CPT:25745 Reason for Study: OUTSIDE STUDY Clinical History: OUTSIDE STUDY Report Status: Electronically Filed Date Reported: NOV 30, 2024 Report: This is an outside Imaging study and/or report imported for continuity of patient care. This Imaging study and/or report was not reviewed or verified by a [place] Radiologist. Impression: This is an outside Imaging study and/or report imported for continuity of patient care. This Imaging study and/or report was not reviewed or verified by a [place] Radiologist. Primary Diagnostic Code: VERIFIED BY: / *ELECTRONICALLY FILED* [facility] Nov 15, 2024 12:[address] BODY W/O CO NTRAST (P): AWAIS PADILLA [id number] -1990 F Exm Date: NOV 15, 2024@12:39 Req Phys: KURT NEWELL Loc: [facility] ONC OSIRIS (Req'g Loc) Img Loc: NUC MED Service: Unknown Screen: [place] [address] (Case [id number] COMPLETE) SKULL-THIGH PET IMAGE W/CT (NM Detailed) CPT:20276 Reason for Study: Evaluation for malignacy (Case [...] pager listed below: User placing orders pager: [phone] LAST CREATININE 0.6 (07/24/24) Report Status: Verified Date Reported: NOV 15, 2024 Date Verified: NOV 15, 2024 Film Processor E-Sig:/ES/CAIN SMART MD Report: PET/CT SCAN INDICATION: [...] Staff: CAIN SMART MD, RADIOLOGY STAFF PHYSICIAN (Film Processor) /CAIN CR [facility] Nov 10, 2024 10:23 AM NON [place] MRI THORACI C SPINE: AWAIS PADILLA [id number] -1990 F Exm Date: NOV 10, 2024@10:23 Req Phys: MARÍA SEAY Loc: [facility] XRAY GENERAL AM (Req'g Loc Img Loc: OUTSOURCE MRI Service: Unknown Screen: Patient answered no (Case [id number] COMPLETE) NON [place] THORACIC SPINE (MRI Detailed) CPT:37571 Reason for Study: OUTSIDE STUDY Clinical History: OUTSIDE STUDY Report Status: Electronically Filed Date Reported: NOV 30, 2024 Report: This is an outside Imaging study and/or report imported for continuity of patient care. This Imaging study and/or report was not reviewed or verified by a [place] Radiologist. Impression: This is an outside Imaging study and/or report imported for continuity of patient care. This Imaging study and/or report was not reviewed or verified by a [place] Radiologist. Primary Diagnostic Code: VERIFIED BY: / *ELECTRONICALLY FILED* [facility] Nov 10, 2024 10:03 AM NON [place] MRI CERVICA L SPINE: AWAIS PADILLA [id number] -1990 F Exm Date: NOV 10, 2024@10:03 Req Phys: MARÍA SEAY Loc: [facility] XRAY GENERAL AM (Req'g Loc Img Loc: OUTSOURCE MRI Service: Unknown Screen: Patient answered no (Case 1904 COMPLETE) NON [place] MRI CERVICAL SPINE (MRI Detailed) CPT:00728 Reason for Study: OUTSIDE STUDY Clinical History: OUTSIDE STUDY Report Status: Electronically Filed Date Reported: NOV 30, 2024 Report: This is an outside Imaging study and/or report imported for continuity of patient care. This Imaging study and/or report was not reviewed or verified by a [place] Radiologist. Impression: This is an outside Imaging study and/or report imported for continuity of patient care. This Imaging study and/or report was not reviewed or verified by a [place] Radiologist. Primary Diagnostic Code: VERIFIED BY: / *ELECTRONICALLY FILED* [facility] Nov 10, 2024 09:46 AM NON [place] MRI LUMBAR SPINE: AWAIS PADILLA [id number] -1990 F Exm Date: NOV 10, 2024@09:46 Req Phys: MARÍA SEAY Loc: [facility] XRAY GENERAL AM (Req'g Loc Img Loc: OUTSOURCE MRI Service: Unknown Screen: Patient answered no (Case [id number] COMPLETE) NON [place] MRI LUMBAR SPINE (MRI Detailed) CPT:32649 Reason for Study: OUTSIDE STUDY Clinical History: OUTSIDE STUDY Report Status: Electronically Filed Date Reported: NOV 30, 2024 Report: This is an outside Imaging study and/or report imported for continuity of patient care. This Imaging study and/or report was not reviewed or verified by a [place] Radiologist. Impression: This is an outside Imaging study and/or report imported for continuity of patient care. This Imaging study and/or report was not reviewed or verified by a [place] Radiologist. Primary Diagnostic Code: VERIFIED BY: / *ELECTRONICALLY FILED* [facility] Encounter Notes: All associated encounter notes This section contains the clinical notes associated to the Encounter. Date/Time Encounter Note(s) Provider Source Dec 07, 2024 02:40 PM ADDENDUM: LOCAL TITLE: Addendum STANDARD TITLE: ADDENDUM DATE OF NOTE: DEC 07, 2024@14:40:15 ENTRY DATE: DEC 07, 2024@14:40:16 AUTHOR: MARÍA SEAY EXP COSIGNER: URGENCY: STATUS: COMPLETED Lorazepam ordered for window pickup /los/ María Seay PA-C Physician Pump Servicer Helper Signed: 12/07/2024 14:40 Receipt Acknowledged By: 12/08/2024 14:43 /los/ YENNI RODRIGUEZ === --- Original Document --- 12/07/24 PRIMARY CARE SECURE MESSAGING: ------Original Message ------ Sent: 12/06/2024 10:31 AM ET From: AWAIS PADILLA To: [facility] Primary CareGeena J. ([facility]) Subject: Medication:Med to lemon picker before scan on Thursday Can you please prescribe me something for me to lemon picker at pharmacy for anxiety for my scan on Thursday. I am terrified. It really is bad enough to where I might not be able to go through with it. ------Original Message ------ Sent: 12/07/2024 08:22 AM ET From: YENNI SALINAS To: AWAIS PADILLA Subject: Medication:Med to lemon picker before scan on Thursday Good Morning, I will forward your request to your Provider. If something is prescribed you will need to have a bulk tank driver bring you to and from scan. Yenni Salinas RN BSN Nurse Unit Manager /es/ YENNI SALINAS RN BSN Signed: 12/07/2024 07:22 Receipt Acknowledged By: 12/07/2024 14:40 /los/ María Seay PA-C Physician Pump Servicer Helper 12/08/2024 ADDENDUM STATUS: UNSIGNED You may not VIEW this UNSIGNED Addendum. MARÍA SEAY [facility] Dec 07, 2024 08:22 AM PRIMARY CARE CoachUp E MESSAGING: LOCAL TITLE: PRIMARY CARE SECURE MESSAGING STANDARD TITLE: PRIMARY CARE SECURE MESSAGING DATE OF NOTE: DEC 07, 2024@08:22 ENTRY DATE: DEC 07, 2024@07:22:32 AUTHOR: YENNI SALINAS COSIGNER: URGENCY: STATUS: COMPLETED PRIMARY CARE SECURE MESSAGING Has ADDENDA ------Original Message ------ Sent: 12/06/2024 10:31 AM ET From: AWAIS PADILLA To: [facility] Primary Care, Brian Seay ([facility]) Subject: Medication:Med to lemon picker before scan on Thursday Can you please prescribe me something for me to lemon picker at pharmacy for anxiety for my scan on Thursday. I am terrified. It really is bad enough to where I might not be able to go through with it. ------Original Message ------ Sent: 12/07/2024 08:22 AM ET From: YENNI SALINAS To: AWAIS PADILLA Subject: Medication:Med to lemon picker before scan on Thursday Good Morning, I will forward your request to your Provider. If something is prescribed you will need to have a bulk tank driver bring you to and from scan. Yenni Salinas RN BSN Nurse Unit Manager /los/ YENNI SALINAS RN BSN Signed: 12/07/2024 07:22 Receipt Acknowledged By: 12/07/2024 14:40 /orestes Seay PA-C Physician Pump Servicer Helper 12/07/2024 ADDENDUM STATUS: COMPLETED Lorazepam ordered for window pickup /orestes Seay PA-C Physician Pump Servicer Helper Signed: 12/07/2024 14:40 Receipt Acknowledged By: 12/08/2024 14:43 /orestes SALINAS RN BSN 12/08/2024 ADDENDUM STATUS: COMPLETED [place] contacted and alerted to prescription ordered for upcoming scan. will have her spouse with her to drive. Reviewed how to take medication prior to scan for sedation. verbalized understanding and is agreeable. /los/ YENNI SALINAS HUMAN RESOURCES DEPARTMENT SUPERVISOR Signed: 12/08/2024 14:46 YENNI SALINAS [facility]
--- OUTSIDE RECORDS SUMMARY | 2025-01-11 10:08 | XMS_ITS | Encounter Summary ---
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 Date/Time Encounter Type Encounter Description Reason Provider Source Jan 05, 2025 08:34 AM Outpatient Encounter PRIMARY CARE/MEDICINE YENNI SALINAS Encounter Template Text not used by [place] Plan of Treatment: Future Appointments (+ 6 months) and Future Tests (+/- 45 days) The Plan of Treatment section includes future care activities for the patient from all [place] treatment[facility]il[facility]. This section includes future appointments and future orders which are active, pending or scheduled. Future Appointments This section includes appointments that were scheduled to occur 6 months from the date of the Encounter, up to a maximum of 20 appointments. The data comes from all [place] treatment facilities. Appointment Date/Time Appointment Type Appointme nt Facility Name Jan 06, 2025 03:00 PM AMBULATORY - REHAB MEDICIN [facility] Jan 10, 2025 09:00 AM AMBULATORY - REHAB MEDICIN [facility] Jan 16, 2025 10:00 AM AMBULATORY - REHAB MEDICIN [facility] Jan 18, 2025 09:00 AM AMBULATORY - REHAB MEDICIN E [facility] Jan 23, 2025 09:00 AM AMBULATORY - REHAB MEDICIN E [facility] Jan 25, 2025 09:00 AM AMBULATORY - REHAB MEDICIN E [facility] February 21, 2025 10:00 AM AMBULATORY - NONE ANIVAL GARCIA [facility] February 21, 2025 11:00 AM AMBULATORY - MEDICINE KARTIK KEY [facility] February 28, 2025 01:00 PM AMBULATORY - REHAB MEDICIN E [facility] March 14, 2025 02:00 PM AMBULATORY - REHAB MEDICIN E [facility] Apr 28, 2025 09:30 AM AMBULATORY - SURGERY [facility] Active, Pending, and Scheduled Orders This section includes a listing of several types of active, pending, and scheduled orders, including clinic medications orders, diagnostic test orders, procedure orders and consult orders; where the start date of the order is 45 days before the date of the Encounter or 45 days after the date of theEncounter. The data comes from all [place] treatment facilities. Test Date/Time Test Type Test Details Facility Name Nov 25, 2024 10:22 AM Consult Order OT OCCUPATIONAL THERAPY OUTPT VISION THERAPY Cons Assignment Editor's Choice [facility] Nov 30, 2024 12:00 AM Laboratory - Chemistry Order CBC BLOOD STAT SP ONCE [facility] Nov 30, 2024 12:00 AM Laboratory - Chemistry Order CREATININE(INCLUDES EGFR) PLASMA STAT SP ONCE [facility] Nov 30, 2024 12:00 AM Laboratory - Chemistry Order PROTHROMBIN TIME/INR PLASMA STAT SP [facility] Dec 01, 2024 11:53 AM Consult Order CSP PCAFC FUNCTIONAL ASSESSMENT INSTRUMENT OUTPT Cons Assignment Editor's Choice [facility] Jan 03, 2025 12:08 PM Consult Order OT OCCUPATIONAL THERAPY OUTPT HOME ACCESSIBILITY Cons Assignment Editor's Choice [facility] Jan 05, 2025 03:02 PM Consult Order ENT OUTPT Cons Assignment Editor's [facility] Lab Results: +/- 30 days of [...] Range Comment Dec 09, 2024 08:34 AM [facility] PROTHROMBIN TIME/INR Specimen Type: PLASMA No comment entered. Ordering Provider: STEPHEN FRANCOIS Report Released Date/Time: Dec 06, 2024 09:29 AM Reporting Lab: [facility] [id number] Performing Lab: [facility] [id number] .INR 1.1 0.8-1.1 .PT 12.9 s H 9.4-12.5 Dec 09, 2024 08:34 AM [facility] CREATININE(INCLUDES EGFR) Specimen Type: PLASMA No comment entered. Ordering Provider: STEPHEN FRANCOIS Report Released Date/Time: Dec 06, 2024 09:29 AM Reporting Lab: [facility] [id number] Performing Lab: [facility] [id number] CREATININE 0.6 mg/dL 0.5-1.0 .CREAT EGFR(CKD-EPI) >90 >60 Dec 09, 2024 08:34 AM [facility] CBC & DIFF Specimen Type: BLOOD Comment: Automated Differential Performed Ordering Provider: STEPHEN FRANCOIS Report Released Date/Time: Dec 06, 2024 09:29 AM Reporting Lab: [facility] [id number] Performing Lab: [facility] [id number] WBC 4.4 4.0-11.0 RBC 4.42 4.00-5.40 HGB [...] ,PRO) 0.2 ABS IMMATURE GRAN 0.0 0.0-0.1 Vital Signs: All taken on the encounter date This section contains inpatient and outpatient Vital Signs collected on the date of the Encounter. Date/Time Temperature Pulse Blood Pressure Respiratory Rate SP02 Pain Height Weight Body Mass Index Source Jan 05, 2025 02:36 PM 8 [facility] Jan 05, 2025 02:30 PM 98.4 93 149/103 98 [facility] Social History: Smoking Status (Most current) and Tobacco Use (All prior to encounter date) This section includes the most current, and the historical, smoking and tobacco- related health factors from the [facility] where the Encounter took place. Current Smoking Status This section includes the most current smoking, or tobacco-related health factor, from the [place] facility where the Encounter took place. Date/Time Current Smoking Status Comment Facil ity Nov 27, 2023 03:30 PM VA-TOBACCO FORMER USER [facility] Tobacco Use History This section includes a history of the smoking, or tobacco-related health factors, that were collected on or before the date of the Encounter. The data comes from the [place] facility where the Encounter took place. Date/Time Smoking Status/Tobacco Use Comment F acility Nov 27, 2023 03:30 PM [place]-TOBACCO QUIT 5 TO < 15 YRS [facility] Jan 14, 2023 09:03 AM VA-TOBACCO FORMER USER [facility] Jan 14, 2023 09:03 AM VA-TOBACCO QUIT 5 TO < 15 YRS [facility] Radiology Reports: +/- 30 days [...] the Encounter. The data comes from all [place] treatment facilities. Date/Time Radiology Report Provider Source Dec 16, 2024 07:03 AM MRI-BRAIN (P): AWAIS PADILLA [id number] -1990 F Exm Date: DEC 16, 2024@07:03 Req Phys: STEPHEN FRANCOIS Evelyn Loc: [facility] COMPUTATIONAL GENETICIST CONSULT-A (Re Img Loc: MRI IMAGING Service: Unknown Screen: [place] [address] (Case [id number] COMPLETE) MRI BRAIN/BRAINSTEM W/O CONTRAST (MRI Detailed) CPT:46178 Reason for Study: Myelopathy Clinical History: Did the ordering provider speak with a moving consultant regarding this imaging exam?No Brain MRI without contrast Myelopathy LAST CREATININE 0.6 (11/22/24) Allergies: METOPROLOL (Jan 14, 2023) REGLAN (Jan 14, 2023) My pager number on record is: [phone]. The pager number/cell phone number above is [...] 16, 2024 Date Verified: DEC 16, 2024 Communications Assistant E-Sig:/ES/SUJIT DENIS MD Report: MRI BRAIN/BRAINSTEM W/O [...] Primary Interpreting Staff: SUJIT DENIS MD, RADIOLOGIST (Communications Assistant) /CDC SUJIT DENIS [facility] Dec 09, 2024 09:[address] MYELOGRAM HOANG CIC (P): AWAIS PADILLA [id number] -1990 F Exm Date: DEC 09, 2024@09:52 Req Phys: STEPHEN FRANCOIS Pat Loc: [facility]OS[facility] COMPUTATIONAL GENETICIST CONSULT-A (Re Img Loc: CT IMAGING Service: Unknown Screen: [place] [address] (Case [id number] COMPLETE) CT MYELOGRAM THORACIC SPINE (CT Detailed) CPT:09422 CPT Modifiers : 59 DISTINCT PROCEDURAL SERVICE [...] PLASMA .CREAT EGFR(CKD-E >90 Ref: >=60 Allergies: ([place] only) METOPROLOL (Jan 14, 2023) REGLAN (Jan 14, 2023) Defer to radiologist for final CT protocol. User Placing Order: STEPHEN FRANCOIS - Office Phone: My pager number on record is: [phone]. The pager number/cell phone number above is NOT correct for reporting critical results, I have entered my correct number below: My correct contact # for critial results is:neurosurgery method consultant Trainees only: Enter your staff provider's info here: Per Joint Commission Standards, by signing this diagnostic imaging request the ordering provider confirms they have considered patients age and recent imaging history. Report Status: Verified Date Reported: DEC 09, 2024 Date Verified: DEC 09, 2024 Wesley E-Sig:/BILL/CARITO POLANCO MD Report: CT Thoracic Spine without [...] CARITO POLANCO MD, RADIOLOGIST ([place]) /CARITO TOLENTINO [facility] Dec 09, 2024 08:50 AM MYELOGRAM THORACIC (P): AWAIS PADILLA [id number] -1990 F Exm Date: DEC 09, 2024@08:50 Req Phys: ALESSANDRO,STEPHENEDSON Rivas Loc: [facility] COMPUTATIONAL GENETICIST CONSULT-A (Re Img Loc: MAIN X-RAY Service: Unknown Screen: [place] [address] (Case [id number] COMPLETE) MYELOGRAM THORACIC VIA LUMBAR INJ(RAD Detailed) CPT:08521 Reason for Study: Eval for arachnoid web or cyst at T6 level Clinical History: myelopathy Outside hosptial Thoracic mri w wo contrast is loaded into [facility]. Please do comparison . thank you Responsible provider name and phone number to notify for critical findings if other than user placing the order and pager listed below: User placing orders pager: [phone] Neurosurgery method consultant LAST CREATININE 0.6 (11/22/24) Report Status: Verified Date Reported: DEC 09, 2024 Date Verified: DEC 09, 2024 Communications Assistant E-Sig:/ES/CARITO POLANCO MD Report: PROCEDURE: Lumbar puncture with fluoroscopic guidance. Thoracic myelogram. History: Myelopathy. Thoracic MRI shows dorsal lesion at T6. Comparison: Outside recent thoracic MRI exam from the [facility]. Fluoro time: 0.8 minute Dose: Air Kerma: 3.9, mGy, DAP: 3.54, dGy.cm? PROCEDURE: The patient/medical decision-maker understood the limitations, alternatives, and risks of the procedure and requested the procedure be performed. Both iMed and oral consent were obtained. A pre-procedural Time-Out was performed per [facility] policy. The patient was prepped and draped [...] Primary Interpreting Staff: CARITO POLANCO MD, RADIOLOGIST (Communications Assistant) /CARITO TOLENTINO [facility] Encounter Notes: All associated encounter notes This section contains the clinical notes associated to the Encounter. Date/Time Encounter Note(s) Provider Source Jan 05, 2025 08:34 AM PRIMARY CARE Satmex E MESSAGING: [facility] TITLE: PRIMARY CARE SECURE MESSAGING STANDARD TITLE: PRIMARY CARE SECURE MESSAGING DATE OF NOTE: JAN 05, 2025@08:34 ENTRY DATE: JAN 05, 2025@07:34 AUTHOR: YENNI SALINAS EXP COSIGNER: URGENCY: STATUS: COMPLETED PRIMARY CARE SECURE MESSAGING Has ADDENDA ------Original Message ----- Sent: 01/04/2025 03:53 PM ET From: AWAIS PADILLA To: [facility] Primary Care, Brian Seay (Soni) Subject: Medication:Need help managing pain Recently the gabapentin has been helping me so much with the chronic pain. But I just had to go to the local ER because I have influenza B and the coughing was so bad I threw up and injured my lower back. Totally different pain it is just horrible! Even morphine didn't help. Between us and the local ER we have tried tramadol,toradol,morphine, tylenol, ibuprofen, muscle relaxers, cannabis and started steroids. Nothing is touching this pain. I am so desperate for relief and I couldn't even get driven to the hi er because the car ride is painful. Please help. ------Original Message ----- Sent: 01/05/2025 08:24 AM ET From: YENNI SALINAS To: AWAIS PADILLA Subject: Medication:Need help managing pain Good Morning, I'm sorry to hear of your injury, but we would really need to evaluate you in Clinic to determine if imaging is needed and a possible consult. To prescribe pain medication you would need an evaluation. I can get you scheduled for an appointment you can contact me at [phone]. Yenni Salinas RN BSN Supervisor Coating /es/ YENNI SALINAS RN BSN Signed: 01/05/2025 07:34 01/05/2025 ADDENDUM STATUS: COMPLETED contacted this PACT RN and was very agitated that she would need to make an appointment. Discussed that she could come to [facility] ER and she began using inappropriate language stating the last time she was here they sent her away stating it was menstrual cramps. Offered again to schedule her into clinic for evaluation and she hung on this magnetic tape typewriter operator. /es/ YENNI SALINAS RN BSN Signed: 01/05/2025 07:36 YENNI SALINAS [facility]
--- OUTSIDE RECORDS SUMMARY | 2025-01-11 10:08 | XMS_ITS | Encounter Summary ---
Author Name [facility] [place] Organization [place] Address [address] [place] [address] Care Team Providers Care Entry Level Marketing Representative Name Role Phone CINDY ZAMORANO Primary Care Provider Unavail able Selected Encounter This section includes the information on record at [place] for the Encounter. Date/Time Encounter Type Encounter Description Reason Pro vider Source Jan 04, 2025 10:00 AM Outpatient Encounter CAREGIVER SUPPORT PROGRAM IHE Encounter Template Text not used by [place] Plan of Treatment: Future Appointments (+ 6 months) and Future Tests (+/- 45 days) The Plan of Treatment section includes future care activities for the patient [facility] [place] [facility] This section includes future appointments and future orders which are active, pending or scheduled. Future Appointments This section includes appointments that were scheduled to occur 6 months from the date of the Encounter, up to a maximum of 20 appointments. The data comes from all [place] treatment facilities. Appointment Date/Time Appointment Type Appointme nt Facility Name Jan 05, 2025 01:58 PM AMBULATORY - MEDICINE [facility] Jan 06, 2025 03:00 PM AMBULATORY - REHAB MEDICIN [facility] Jan 10, 2025 09:00 AM AMBULATORY - REHAB [facility]ICIN [facility] Jan 16, 2025 10:00 AM AMBULATORY - REHAB [facility]ICIN [facility] Jan 18, 2025 09:00 AM AMBULATORY - REHAB MEDICIN [facility] Jan 23, 2025 09:00 AM AMBULATORY - REHAB MEDICIN E [facility] Jan 25, 2025 09:00 AM AMBULATORY - REHAB MEDICIN E [facility] February 21, 2025 10:00 AM AMBULATORY - NONE ANIVAL GARCIA [facility] February 21, 2025 11:00 AM AMBULATORY - MEDICINE KARTIK KEY [facility] February 28, 2025 01:00 PM AMBULATORY - REHAB MEDICIN E [facility] March 14, 2025 02:00 PM AMBULATORY - REHAB MEDICIN E [facility] Apr 28, 2025 09:30 AM AMBULATORY - SURGERY [facility] Active, Pending, and Scheduled Orders This section includes a listing of several types of active, pending, and scheduled orders, including clinic medications orders, diagnostic test orders, procedure orders and consult orders; where the start date of the order is 45 days before the date of the Encounter or 45 days after the date of theEncounter. The data comes from all [place] treatment facilities. Test Date/Time Test Type Test Details Facility Name Nov 25, 2024 10:22 AM Consult Order OT OCCUPATIONAL THERAPY OUTPT VISION THERAPY Cons Automotive Lot Attendant's [facility] Nov 30, 2024 12:00 AM Laboratory - Chemistry Order CBC BLOOD STAT SP ONCE [facility] Nov 30, 2024 12:00 AM Laboratory - Chemistry Order CREATININE(INCLUDES EGFR) PLASMA STAT SP ONCE [facility] Nov 30, 2024 12:00 AM Laboratory - Chemistry Order PROTHROMBIN TIME/INR PLASMA STAT SP [facility] Dec 01, 2024 11:53 AM Consult Order CSP PCAFC FUNCTIONAL ASSESSMENT INSTRUMENT OUTPT Cons Automotive Lot Attendant's [facility] Jan 03, 2025 12:08 PM Consult Order OT OCCUPATIONAL THERAPY OUTPT HOME ACCESSIBILITY Cons [employer] Lot Attendant's [facility] Jan 05, 2025 03:02 PM Consult Order ENT OUTPT Cons [employer] Lot Att[employer]'s [facility] Lab Results: +/- 30 days [...] Range Comment Dec 09, 2024 08:34 AM [facility] CREATININE(INCLUDES EGFR) Specimen Type: PLASMA No comment entered. Ordering Provider: STEPHEN FRANCOIS Report Released Date/Time: Dec 06, 2024 09:29 AM Reporting Lab: [facility] [id number] Performing Lab: [facility] [id number] CREATININE 0.6 mg/dL 0.5-1.0 .CREAT EGFR(CKD-EPI) >90 >60 Dec 09, 2024 08:34 AM [facility] PROTHROMBIN TIME/INR Specimen Type: PLASMA No comment entered. Ordering Provider: STEPHEN FRANCOIS Report Released Date/Time: Dec 06, 2024 09:29 AM Reporting Lab: [facility] [id number] Performing Lab: [facility] [id number] .INR 1.1 0.8-1.1 .PT 12.9 s H 9.4-12.5 Dec 09, 2024 08:34 AM [facility] CBC & DIFF Specimen Type: BLOOD Comment: Automated Differential Performed Ordering Provider: STEPHEN FRANCOIS Report Released Date/Time: Dec 06, 2024 09:29 AM Reporting Lab: [facility] [id number] Performing Lab: [facility] [id number] WBC 4.4 4.0-11.0 RBC 4.42 4.00-5.40 HGB [...] and tobacco- related health factors from the [place] facility where the Encounter took place. Current Smoking Status This section includes the most current smoking, or tobacco-related health factor, from the [place] facility where the Encounter took place. Date/Time Current Smoking Status Comment Facil ity Nov 27, 2023 03:30 PM [place]-TOBACCO FORMER USER [facility] Tobacco Use History This section includes a history of the smoking, or tobacco-related health factors, that were collected on or before the date of the Encounter. The data comes from the [place] facility where the Encounter took place. Date/Time Smoking Status/Tobacco Use Comment F acility Nov 27, 2023 03:30 PM VA-TOBACCO QUIT 5 TO < 15 YRS [facility] Jan 14, 2023 09:03 AM VA-TOBACCO FORMER USER [facility] Jan 14, 2023 09:03 AM VA-TOBACCO QUIT 5 TO < 15 YRS [facility] Radiology Reports: +/- 30 days of [...] the Encounter. The data comes from all [place] treatment facilities. Date/Time Radiology Report Provider Source Dec 16, 2024 07:03 AM MRI-BRAIN (P): AWAIS PADILLA [id number] -1990 F Exm Date: DEC 16, 2024@07:03 Req Phys: STEPHEN FRANCOIS Loc: [facility] NEUROSURG LEAD SYSTEMS DEVELOPER CONSULT-A (Re Img Loc: MRI IMAGING Service: Unknown Screen: [place] [address] (Case [id number] COMPLETE) MRI BRAIN/BRAINSTEM W/O CONTRAST (MRI Detailed) CPT:49653 Reason for Study: Myelopathy Clinical History: Did the ordering provider speak with a professional housing consultant regarding this imaging exam?No Brain MRI without contrast Myelopathy LAST CREATININE 0.6 (11/22/24) Allergies: METOPROLOL (Jan 14, 2023) REGLAN (Jan 14, 2023) My pager number on record is: [phone]. The pager number/cell phone number above is [...] 2024 Date Verified: DEC 16, 2024 Communications Department Head E-Sig:/ES/SUJIT DENIS MD Report: MRI BRAIN/BRAINSTEM W/O [...] Interpreting Staff: SUJIT DENIS MD, RADIOLOGIST (Communications Department Head) /[facility] SUJIT DENIS [facility] Dec 09, 2024 09:[address] [facility] AWAIS PADILLA [id number] -1990 F Exm Date: DEC 09, 2024@09:52 Req Phys: STEPHEN FRANCOIS [facility] Loc: [facility] NEUROSURG LEAD SYSTEMS DEVELOPER CONSULT-A (Re Img Loc: CT IMAGING Service: Unknown Screen: [place] [address] (Case [id number] COMPLETE) CT MYELOGRAM THORACIC SPINE (CT Detailed) CPT:85894 CPT Modifiers : 59 DISTINCT PROCEDURAL SERVICE [...] PLASMA .CREAT EGFR(CKD-E >90 Ref: >=60 Allergies: ([facility] only) METOPROLOL (Jan 14, 2023) REGLAN (Jan 14, 2023) Defer to radiologist for final CT protocol. User Placing Order: STEPHEN FRANCOIS - Office Phone: My pager number on record is: [phone]. The pager number/cell phone number above is NOT correct for reporting critical results, I have entered my correct number below: My correct contact # for critial results is:neurosurgery special education professor Trainees only: Enter your staff provider's info here: Per Joint Commission Standards, by signing this diagnostic imaging request the ordering provider confirms they have considered patients age and recent imaging history. Report Status: Verified Date Reported: DEC 09, 2024 Date Verified: DEC 09, 2024 Communications Department Head E-Sig:/ES/CARITO POLANCO MD Report: CT Thoracic Spine [...] Interpreting Staff: CARITO POLANCO MD, RADIOLOGIST (Communications Department Head) /CARITO [facility]OL[facility] Dec 09, 2024 08:50 AM MYELOGRAM THORACIC (P): AWAIS PADILLA [id number] -1990 F Exm Date: DEC 09, 2024@08:50 Req Phys: STEPHEN FRANCOIS Pat Loc: [facility] NEUROSURG LEAD SYSTEMS DEVELOPER CONSULT-A (Re Img Loc: MAIN X-RAY Service: Unknown Screen: [place] [address] (Case [id number] COMPLETE) MYELOGRAM THORACIC VIA LUMBAR INJ(RAD Detailed) CPT:25250 Reason for Study: Eval for arachnoid web or cyst at T6 level Clinical History: myelopathy Outside hosptial Thoracic mri w wo contrast is loaded into VISAGE. Please do comparison . thank you Responsible provider name and phone number to notify for critical findings if other than user placing the order and pager listed below: User placing orders pager: [phone] Neurosurgery special education professor LAST CREATININE 0.6 (11/22/24) Report Status: Verified Date Reported: DEC 09, 2024 Date Verified: DEC 09, 2024 Communications Department Head E-Sig:/ES/CARITO POLANCO MD Report: PROCEDURE: Lumbar puncture with fluoroscopic guidance. Thoracic myelogram. History: Myelopathy. Thoracic MRI shows dorsal lesion at T6. Comparison: Outside recent thoracic MRI exam from the [facility]. Fluoro time: 0.8 minute Dose: Air Kerma: 3.9, mGy, DAP: 3.54, dGy.cm? PROCEDURE: The patient/medical decision-maker understood the limitations, alternatives, and risks of the procedure and requested the procedure be performed. Both iMed and oral consent were obtained. A pre-procedural Time-Out was performed per [facility] policy. The patient was prepped and draped [...] Interpreting Staff: CARITO POLANCO MD, RADIOLOGIST (Communications Department Head) /CARITO [facility]OL[facility] Encounter Notes: All associated encounter notes This section contains the clinical notes associated to the Encounter. Date/Time Encounter Note(s) Provider Source Jan 04, 2025 10:03 AM CAREGIVER CERTIFICATE: LOCAL TITLE: CSP TELEPHONE NOTE STANDARD TITLE: CAREGIVER CERTIFICATE DATE OF NOTE: JAN 04, 2025@10:03 ENTRY DATE: JAN 04, 2025@10:03:55 AUTHOR: KALYANI FARFAN EXP COSIGNER: URGENCY: STATUS: COMPLETED Striper signed onto VVC link at 1000 for scheduled VFAI. Caregiver, Pualo, was present in the vehicle, sharing that the was currently at the [facility] for significant pain. He reports that they need to reschedule the visit for today. Striper informed Paulo that our scheduling team will follow up to reschedule VFAI reassessment with him. Alerting AMSAs to cancel of [facility] VVC CG OT 3 at 1000 for VFAI today, 01/04. /los/ KALYANI FARFAN OCCUPATIONAL THERAPIST Signed: 01/04/2025 10:12 Receipt Acknowledged By: 01/06/2025 07:55 /los/ ANA DELGADILLO Advanced Spray Gun Repairer 01/04/2025 10:34 /es/ SHEYLA CIFUENTES Lead KALYANI NDIAYE [facility] Jan 04, 2025 09:52 AM CAREGIVER CERTIFICATE: LOCAL TITLE: CSP PCAFC PRIMARY CARE COLLABORATION STANDARD TITLE: CAREGIVER CERTIFICATE DATE OF NOTE: JAN 04, 2025@09:52 ENTRY DATE: JAN 04, 2025@09:52:08 AUTHOR: KALYANI FARFAN EXP COSIGNER: URGENCY: STATUS: COMPLETED As part of the Program of Comprehensive Assistance for Family Caregiver (PCAFC), the Caregiver Support Program (CSP) collaborates with the 's Primary Care Team to the maximum extent practicable. Primary Care Team means one or more medical aide who care for a patient based on the clinical needs of the patient. Primary Care Teams must include a [place] Primary Care Provider who is a physician, advanced practice nurse or a physician assistant director of security. The CSP is seeking input and/or sharing documentation such as comprehensive assessments or progress notes that discuss ADL needs and/or supervision, protection or instruction needs; or a treatment plan. Primary Care Team members are not responsible for determining eligibility for the PCAFC. Documentation for collaboration should be within twelve months from the valid application received date or reassessment date, as applicable. Name: AWAIS PADILLA Valid application received date or reassessment date, as applicable: Nov CSP staff was not able to collaborate directly with the 's Primary Care Team. The 's chart was reviewed for information within the last twelve (12) months from the valid application received date or reassessment date, as applicable. Upon completing review, the CSP staff completed the following note: Name of primary provider: CINDY ZAMORANO Specialty of provider: PCP Date/Title of documentation reference: 03/22/24 - Medicine Clinic Note Exposure to potentially hazardous substaTraumatic brain injury ([facility] [id number]) Temporomandibular joint disorder ([facility] 41Unintentional weight loss ([facility] [id number]) Mood disorder ([facility] [id number]) Headache ([facility] [id number]) Family history: Myocardial infarction atHistory of cerebrospinal fluid leak (ICD-10-CM R69.) History of gestational diabetes mellitusGeneralized enlarged lymph nodes (SCT 396228134) Splenomegaly (SCT 09623163) Myelopathy (SCT 49227125) LIMITED FLEXION OF KNEE 10% SC FACIAL [...] BEDTIME ACTIVE 2) Non-VA ONDANSETRON TAB 4MG [id number] ACTIVE 7 Total Medications Current treatment plan [...] actively involved in the care of the :* Yes Describe caregiver's involvement: Enrolled in CSP Based on record review, Caregiver is noted to be able to understand the current treatment plan:* Yes Based on record review, the care needs of the Hardy can be safely provided in a home setting:* Yes Based on record review, there is evidence of Hardy being recommended for institutional care:* No /los/ KALYANI FARFAN OCCUPATIONAL THERAPIST Signed: 01/04/2025 09:55 KALYANI FARFAN [facility]
--- OUTSIDE RECORDS SUMMARY | 2025-01-11 10:09 | XMS_ITS | Encounter Summary ---
Author Name Department [place] Organization [place] Address [address] [place] [address] Care Team Providers Care Building Maintenance Repairer Name Role Phone CINDY ZAMORANO Primary Care Provider Unavail able Selected Encounter This section includes the information on record at [place] for the Encounter. Date/Time Encounter Type Encounter Description Reason Provider Source Dec 22, 2024 11:00 AM OFFICE O/P EST MOD 30 MIN NEUROSURGERY ICD-10-CM G99.2 Myelopathy in diseases classified elsewhere MAIKOL GAVIN Encounter Template Text not used by [place] Assessments - Encounter Diagnoses This section includes the primary and secondary diagnoses documented for the Encounter. Date/Time Primary/Secondary Diagnosis Diagnosis Name Provider Source Dec 22, 2024 12:34 PM PRIMARY Myelopathy in diseases classified elsewhere SYLVIA CROW [facility] Plan of Treatment: Future Appointments (+ 6 months) and Future Tests (+/- 45 days) The Plan of Treatment section includes future care activities for the patient from all [place] treatmentfacilities. This section includes future appointments and future orders which are active, pending or scheduled. Future Appointments This section includes appointments that were scheduled to occur 6 months from the date of the Encounter, up to a maximum of 20 appointments. The data comes from all [place] treatment facilities. Appointment Date/Time Appointment Type Appointme [...] 05, 2025 01:58 PM AMBULATORY - MEDICINE [facility] Jan 06, 2025 03:00 PM AMBULATORY - REHAB MEDICIN E [facility] Jan 10, 2025 09:00 AM AMBULATORY - REHAB MEDICIN E [facility] Jan 16, 2025 10:00 AM AMBULATORY - REHAB MEDICIN E [facility] Jan 18, 2025 09:00 AM AMBULATORY - REHAB MEDICIN E [facility] Jan 23, 2025 09:00 AM AMBULATORY - REHAB MEDICIN [facility] Jan 25, 2025 09:00 AM AMBULATORY - REHAB MEDICIN [facility] February 21, 2025 10:00 AM AMBULATORY - NONE [facility] February 21, 2025 11:00 AM AMBULATORY - MEDICINE [facility] February 28, 2025 01:00 PM AMBULATORY - REHAB MEDICIN [facility] March 14, 2025 02:00 PM AMBULATORY - REHAB MEDICIN [facility] Apr 28, 2025 09:30 AM AMBULATORY - SURGERY [facility] Active, Pending, and Scheduled Orders [...] The data comes from all [place] treatment [facility]. Test Date/Time Test Type Test Details Facility Name Nov 25, 2024 10:22 AM Consult Order OT OCCUPATIONAL THERAPY OUTPT VISION THERAPY Cons Coding Auditor's Choice [facility] Nov 30, 2024 12:00 AM Laboratory - Chemistry Order CBC BLOOD STAT SP ONCE [facility] Nov 30, 2024 12:00 AM Laboratory - Chemistry Order CREATININE(INCLUDES EGFR) PLASMA STAT SP ONCE [facility] Nov 30, 2024 12:00 AM Laboratory - Chemistry Order PROTHROMBIN TIME/INR PLASMA STAT SP [facility] Dec 01, 2024 11:53 AM Consult Order CSP PCAFC FUNCTIONAL ASSESSMENT INSTRUMENT OUTPT Cons Coding Auditor's Choice [facility] Jan 03, 2025 12:08 PM Consult Order OT OCCUPATIONAL THERAPY OUTPT HOME ACCESSIBILITY Cons Coding Auditor's Choice [facility] Jan 05, 2025 03:02 PM Consult Order ENT OUTPT Cons Coding Auditor's Choice [facility] Lab Results: +/- 30 [...] Range Comment Dec 09, 2024 08:34 AM [facility] PROTHROMBIN TIME/INR Specimen Type: PLASMA No comment entered. Ordering Provider: STEPHEN FRANCOIS Report Released Date/Time: Dec 06, 2024 09:29 AM Reporting Lab: [facility] [id number] Performing Lab: [facility] [address] .INR 1.1 0.8-1.1 .PT 12.9 s H 9.4-12.5 Dec 09, 2024 08:34 AM [facility] CREATININE(INCLUDES EGFR) Specimen Type: PLASMA No comment entered. Ordering Provider: STEPHEN FRANCOIS Report Released Date/Time: Dec 06, 2024 09:29 AM Reporting Lab: [facility] [address] Performing Lab: [facility] [address] CREATININE 0.6 mg/dL 0.5-1.0 .CREAT EGFR(CKD-EPI) >90 >60 Dec 09, 2024 08:34 AM [facility] CBC & DIFF Specimen Type: BLOOD Comment: Automated Differential Performed Ordering Provider: STEPHEN FRANCOIS Report Released Date/Time: Dec 06, 2024 09:29 AM Reporting Lab: [facility] [address] Performing Lab: [facility] [address] WBC 4.4 4.0-11.0 RBC 4.42 4.00-5.40 HGB [...] 27, 2023 03:30 PM VA-TOBACCO [facility] USER [facility] Tobacco Use History This [...] [facility] Jan 14, 2023 09:03 AM PA-TOBACCO QUIT 5 TO < 15 YRS COMMUNITY [...] 2024 07:03 AM MRI-BRAIN (P): AWAIS PADILLA [id number] -1990 F Exm Date: DEC 16, 2024@07:03 Req Phys: STEPHEN FRANCOIS Pat Loc: [facility] NEUROSURG VENDING MANAGER CONSULT-A (Re Img Loc: MRI IMAGING Service: Unknown Screen: [place] [address] (Case 3000 COMPLETE) MRI BRAIN/BRAINSTEM W/O CONTRAST (MRI Detailed) CPT:40405 Reason for Study: Myelopathy Clinical History: Did the ordering provider speak with a sap treasury consultant regarding this imaging exam?No Brain MRI without contrast Myelopathy LAST CREATININE 0.6 (11/22/24) Allergies: METOPROLOL (Jan 14, 2023) REGLAN (Jan 14, 2023) My pager number on record is: [phone]. The pager number/cell phone number above is [...] 16, 2024 Date Verified: DEC 16, 2024 Jigsawyer E-Sig:/ES/SUJIT DENIS MD Report: MRI BRAIN/BRAINSTEM W/O [...] Primary Interpreting Staff: SUJIT DENIS MD, RADIOLOGIST (Jigsawyer) /[facility] SUJIT DENIS [facility] Dec 09, 2024 09:[address] MYELOGRAM THORA CIC (P): AWAIS PADILLA [id number] -1990 F Exm Date: DEC 09, 2024@09:52 Req Phys: STEPHEN FRANCOIS Loc: [facility] NEUROSURG VENDING MANAGER CONSULT-A (Re Img Loc: CT IMAGING Service: Unknown Screen: [place] [address] (Case [id number] COMPLETE) CT MYELOGRAM THORACIC SPINE (CT Detailed) CPT:95858 CPT Modifiers : 59 DISTINCT PROCEDURAL SERVICE [...] PLASMA .CREAT EGFR(CKD-E >90 Ref: >=60 Allergies: ([place] only) METOPROLOL (Jan 14, 2023) REGLAN (Jan 14, 2023) Defer to radiologist for final CT protocol. User Placing Order: STEPHEN FRANCOIS Office Phone: My pager number on record is: [phone]. The pager number/cell phone number above is NOT correct for reporting critical results, I have entered my correct number below: My correct contact # for critial results is:neurosurgery security system sales consultant Trainees only: Enter your staff provider's info here: Per Joint Commission Standards, by signing this diagnostic imaging request the ordering provider confirms they have considered patients age and recent imaging history. Report Status: Verified Date Reported: DEC 09, 2024 Date Verified: DEC 09, 2024 Jigsawyer E-Sig:/ES/CARITO POLANCO MD Report: CT Thoracic Spine [...] Primary Interpreting Staff: CARITO POLANCO MD, RADIOLOGIST (Jigsawyer) /CARITO [facility]OL[facility] Dec 09, 2024 08:50 AM MYELOGRAM THORACIC (P): AWAIS PADILLA [id number] -1990 F Exm Date: DEC 09, 2024@08:50 Req Phys: ALESSANDROSTEPHEN Nikita Pat Loc: [facility] NEUROSURG VENDING MANAGER CONSULT-A (Re Img Loc: MAIN X-RAY Service: Unknown Screen: [place] [address] (Case [id number] COMPLETE) MYELOGRAM THORACIC VIA LUMBAR INJ(RAD Detailed) CPT:95378 Reason for Study: Eval for arachnoid web or cyst at T6 level Clinical History: myelopathy Outside hosptial Thoracic mri w wo contrast is loaded into [facility]AGE. Please do comparison . thank you Responsible provider name and phone number to notify for critical findings if other than user placing the order and pager listed below: User placing orders pager: [phone] Neurosurgery security system sales consultant LAST CREATININE 0.6 (11/22/24) Report Status: Verified Date Reported: DEC 09, 2024 Date Verified: DEC 09, 2024 Jigsawyer E-Sig:/ES/CARITO POLANCO MD Report: PROCEDURE: Lumbar puncture with fluoroscopic guidance. Thoracic myelogram. History: Myelopathy. Thoracic MRI shows dorsal lesion at T6. Comparison: Outside recent thoracic MRI exam from the [facility]. Fluoro time: 0.8 minute Dose: Air Kerma: 3.9, mGy, DAP: 3.54, dGy.cm? PROCEDURE: The patient/medical decision-maker understood the limitations, alternatives, and risks of the procedure and requested the procedure be performed. Both iMed and oral consent were obtained. A pre-procedural Time[facility]. The patient was prepped and [...] Primary Interpreting Staff: CARITO POLANCO MD, RADIOLOGIST (Jigsawyer) /CARITO [facility] Nov 22, 2024 07:12 PM NON VA MRI THORACI C SPINE: AWAIS PADILLA [id number] -1990 F Exm Date: NOV 22, 2024@19:12 Req Phys: CINDY ZAMORANO Loc: [facility] XRAY GENERAL AM (Req'g Loc Img Loc: OUTSOURCE MRI Service: Unknown Screen: Patient answered no (Case 1924 COMPLETE) NON [facility] MRI THORACIC SPINE (MRI Detailed) CPT:40002 Reason for Study: OUTSIDE STUDY Clinical History: [...] GAVIN M.D. STAFF SURGEON, NEUROSURGERY SYLVIA CROW [facility]
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
--- OUTSIDE RECORDS SUMMARY | 2025-01-11 10:09 | XMS_ITS | Encounter Summary ---
Author Name [facility] Organization [facility] Address [address] [place] [id number] Care Team Providers Care Divorce Mediator Name Role Phone LONA MARÍA Primary Care Provider Unavail able Selected Encounter This section includes the information on record at [place] for the Encounter. Date/Time Encounter Type Encounter Description Reason Provider Source Nov 26, 2024 09:29 AM EMERGENCY DEPT VISIT [facility] EMERGENCY DEPT ICD-10-CM R53.1 Weakness TORRES HEDRICK [facility] Encounter Template Text not used by [place] Assessments - Encounter Diagnoses This section includes the primary and secondary diagnoses documented for the Encounter. Date/Time Primary/Secondary Diagnosis Diagnosis Name Provider Source Nov 26, 2024 03:41 PM PRIMARY Weakness TORRES HEDRICK [facility] Nov 26, 2024 03:41 PM SECONDARY Dorsalgia, unspecified TORRES HEDRICK [facility] Plan of Treatment: Future Appointments (+ 6 months) and Future Tests (+/- 45 days) The Plan of Treatment section includes future care activities for the patient from all [place] treatmentfacilities. This section includes future appointments and future orders which are active, pending or scheduled. Future Appointments This section includes appointments that were scheduled to occur 6 months from the date of the Encounter, up to a maximum of 20 appointments. The data comes from all [facility]. Appointment Date/Time Appointment Type Appointme nt Facility Name Nov 30, 2024 11:00 AM AMBULATORY - SURGERY [facility] Dec 02, 2024 08:00 AM AMBULATORY - REHAB MEDICIN E [facility] Dec 09, 2024 08:30 AM AM[place]ATORY - [place] [facility] Dec 09, 2024 09:30 AM [place]ORY - [place] [facility] [facility] Dec 09, 2024 10:30 AM AM[place]ATORY - [place] [facility] Dec 09, 2024 10:45 AM AMBULATORY - SURGERY [facility] Dec 13, 2024 01:00 PM AMBULATORY - REHAB MEDICIN E [facility] Dec 16, 2024 07:00 AM AMBULATORY - NONE [facility] Dec 21, 2024 10:00 AM AMBULATORY - REHAB MEDICIN E [facility] Dec 22, 2024 11:00 AM AMBULATORY - SURGERY [facility] Dec 23, 2024 08:00 AM AMBULATORY - REHAB MEDICIN E [facility] Dec 28, 2024 01:00 PM AMBULATORY - REHAB MEDICIN E [facility] Dec 29, 2024 10:00 AM AMBULATORY - REHAB MEDICIN E [facility] Jan 02, 2025 08:30 AM AMBULATORY - REHAB MEDICIN E [facility] Jan 05, 2025 01:58 PM AMBULATORY - MEDICINE [facility] Jan 06, 2025 03:00 PM AMBULATORY - REHAB MEDICIN E [facility] Jan 10, 2025 09:00 AM AMBULATORY - REHAB MEDICIN E [facility] Jan 16, 2025 10:00 AM AMBULATORY - REHAB MEDICIN E [facility] Jan 18, 2025 09:00 AM AMBULATORY - REHAB MEDICIN E [facility] Jan 23, 2025 09:00 AM AMBULATORY - REHAB MEDICIN [facility] Active, Pending, and Scheduled Orders This section includes a listing of several types of active, pending, and scheduled orders, including clinic medications orders, diagnostic test orders, procedure orders and consult orders; where the start date of the order is 45 days before the date of the Encounter or 45 days after the date of theEncounter. The data comes from all [facility]. Test Date/Time Test Type Test Details Facility Name Oct 25, 2024 12:00 AM Laboratory - Chemistry Order CBC & DIFF BLOOD ONCO SP ONCE [facility] Nov 25, 2024 10:22 AM Consult Order OT OCCUPATIONAL THERAPY OUTPT VISION THERAPY Cons Medical Technologist's Choice [facility] Nov 30, 2024 12:00 AM Laboratory - Chemistry Order CBC BLOOD STAT SP ONCE [facility] Nov 30, 2024 12:00 AM Laboratory - Chemistry Order CREATININE(INCLUDES EGFR) PLASMA STAT SP ONCE [facility] Nov 30, 2024 12:00 AM Laboratory - Chemistry Order PROTHROMBIN TIME/INR PLASMA STAT SP [facility] Dec 01, 2024 11:53 AM Consult Order CSP PCAFC FUNCTIONAL ASSESSMENT INSTRUMENT OUTPT Cons Medical Technologist's Choice [facility] Jan 03, 2025 12:08 PM Consult Order OT OCCUPATIONAL THERAPY OUTPT HOME ACCESSIBILITY Cons Medical Technologist's [facility] Jan 05, 2025 03:02 PM Consult Order ENT OUTPT Cons Medical Technologist's [facility] Lab Results: +/- 30 days of the encounter This section includes the Chemistry and Hematology Lab Results on record with [place] for the patient. Radiology Reports and Pathology Reports are provided separately, in subsequent sections. Lab Results This section contains the Chemistry/Hematology Results that were resulted 30 days before or 30 daysafter the date of the Encounter. Date/Time Source Result Type Result - Unit Interpretation Reference Range Comment Dec 09, 2024 08:[address] [facility] PROTHROMBIN TIME/INR Specimen Type: PLASMA No comment entered. Ordering Provider: FORD FRANCOIS Report Released Date/Time: Dec 06, 2024 09:29 AM Reporting Lab: [facility] [id number] Performing Lab: [facility] [id number] .INR 1.1 0.8-1.1 .PT 12.9 s H 9.4-12.5 Dec 09, 2024 08:[address] [facility] CREATININE(INCLUDES EGFR) Specimen Type: PLASMA No comment entered. Ordering Provider: FORD FRANCOIS Report Released Date/Time: Dec 06, 2024 09:29 AM Reporting Lab: [facility] [id number] Performing Lab: [facility] [phone] CREATININE 0.6 mg/dL 0.5-1.0 .CREAT EGFR(CKD-EPI) >90 >60 Dec 09, 2024 08:[address] [facility] CBC & DIFF Specimen Type: BLOOD Comment: Automated Differential Performed Ordering Provider: FORD FRANCOIS Report Released Date/Time: Dec 06, 2024 09:29 AM Reporting Lab: [facility] [phone] Performing Lab: [facility] [phone] WBC 4.4 4.0-11.0 RBC 4.42 4.00-5.40 HGB [...] 0.0-0.1 Nov 22, 2024 09:[address] [facility] URIC ACID Specimen Type: PLASMA No comment entered. Ordering Provider: KURT NEWELL Report Released Date/Time: Apr 26, 2024 10:33 AM Reporting Lab: [facility] [phone] Performing Lab: [facility] [address] URIC ACID 5.4 mg/dL 2.5-6.2 Nov 22, 2024 09:[address] [facility] LD,TOTAL Specimen Type: PLASMA No comment entered. Ordering Provider: KURT NEWELL Report Released Date/Time: Apr 26, 2024 10:33 AM Reporting Lab: [facility] [phone] Performing Lab: [facility] [address] LD,TOTAL 194 U/L 125-220 Nov 22, 2024 09:[address] [facility] COMPREHENSIVE METABOLIC PANEL+MG Specimen Type: PLASMA No comment entered. Ordering Provider: KURT NEWELL Report Released Date/Time: Apr 26, 2024 10:33 AM Reporting Lab: [facility] [id number] Performing Lab: [facility] [phone] CREATININE 0.6 mg/dL 0.5-1.0 UREA NITROGEN 12 [...] >60 Nov 22, 2024 09:[address] [facility] CBC & DIFF Specimen Type: BLOOD Comment: Automated Differential Performed Ordering Provider: KURT NEWELL Report Released Date/Time: Oct 25, 2024 10:32 AM Reporting Lab: [facility] [phone] Performing Lab: [facility] [phone] WBC 5.4 4.0-11.0 RBC 4.58 4.00-5.40 HGB [...] 0.0-0.1 Nov 15, 2024 12:[address] [facility] FINGERSTICK GLUCOSE Specimen Type: BLOOD Comment: Save Result Ordering Provider: LISANDRA SEAY Report Released Date/Time: Nov 17, 2024 07:56 AM Reporting Lab: [facility] [phone] Performing Lab: [facility] [phone] FINGERSTICK GLUCOSE 87 mg/dL 70-100 Vital Signs: All taken on the encounter date This section contains inpatient and outpatient Vital Signs collected on the date of the Encounter. Date/Time Temperature Pulse Blood Pressure Respiratory Rate SP02 Pain Height Weight Body Mass Index Source Nov 26, 2024 12:37 PM 74 146/[address] [facility] Nov 26, 2024 09:[address] [facility] Nov 26, 2024 09:32 AM 73 136/[address] [facility] Social History: Smoking Status (Most current) and Tobacco Use (All prior to encounter date) This section includes the most current, and the historical, smoking and tobacco- related health factors from the [facility] where the Encounter took place. Current Smoking Status This section includes the most current smoking, or tobacco-related health factor, from the [facility] where the Encounter took place. Date/Time Current Smoking Status Comment Srini zaldivar Nov 27, 2023 03:30 PM VA-TOBACCO QUIT 5 TO < [address] [facility] Tobacco Use History This section includes a history of the smoking, or tobacco-related health factors, that were collected on or before the date of the Encounter. The data comes from the [facility] facility where the [facility]counter took place. Date/Time Smoking Status/Tobacco Use Comment F acility Nov 27, 2023 03:30 PM VA-TOBACCO QUIT 5 TO < [address] [facility] Jan 14, 2023 09:03 AM AR-TOBACCO FORMER USER [facility] Jan 14, 2023 09:03 AM VA-TOBACCO QUIT 5 TO < [address] [facility] Radiology Reports: +/- 30 days [...] the Encounter. The data comes from all [place] treatment facilities. Date/Time Radiology Report Provider Source Dec 16, 2024 07:03 AM MRI-BRAIN (P): AWAIS PADILLA [id number] -1990 F Exm Date: DEC 16, 2024@07:03 Req Phys: STEPHEN FRANCOIS Loc: [facility] NEUROSURG MEDICAL AFFAIRS DIRECTOR CONSULT-A (Re Img Loc: MRI IMAGING Service: Unknown Screen: [place] [address] (Case [id number] COMPLETE) MRI BRAIN/BRAINSTEM W/O CONTRAST (MRI Detailed) CPT:95351 Reason for Study: Myelopathy Clinical History: Did the ordering provider speak with a identity management consultant regarding this imaging exam?No Brain MRI without contrast Myelopathy LAST CREATININE 0.6 (11/22/24) Allergies: METOPROLOL (Jan 14, 2023) REGLAN (Jan 14, 2023) My pager number on record is: [phone]. The pager number/cell phone number above is [...] 2024 Date Verified: DEC 16, 2024 Associate Professor Of Geology E-Sig:/ES/SUJIT D CIRA, MD Report: MRI BRAIN/BRAINSTEM W/O CONTRAST 12/16/2024 [...] Interpreting Staff: SUJIT DENIS MD, RADIOLOGIST (Associate Professor Of Geology) /[facility] SUJIT DENIS [facility] Dec 09, 2024 09:[address] MYELOGRAM [facility] (P): VALERIEARMENADRIEN SALVADOR [id number] -1990 F Exm Date: DEC 09, 2024@09:52 Req Phys: STEPHEN FRANCOIS Pat Loc: [facility] NEUROSURG MEDICAL AFFAIRS DIRECTOR CONSULT-A (Re Img Loc: CT IMAGING Service: Unknown Screen: [place] [address] (Case [id number] COMPLETE) CT MYELOGRAM THORACIC SPINE (CT Detailed) CPT:16921 CPT Modifiers : 59 DISTINCT PROCEDURAL SERVICE [...] PLASMA .CREAT EGFR(CKD-E >90 Ref: >=60 Allergies: ([place] only) METOPROLOL (Jan 14, 2023) REGLAN (Jan 14, 2023) Defer to radiologist for final CT protocol. User Placing Order: STEPHEN FRANCOIS L - Office Phone: My pager number on record is: [phone]. 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 Report Status: Verified Date Reported: DEC 09, 2024 Date Verified: DEC 09, 2024 Associate Professor Of Geology E-Sig:/ES/CARITO POLANCO MD Report: CT Thoracic Spine [...] Interpreting Staff: CARITO POLANCO MD, RADIOLOGIST (Associate Professor Of Geology) /[facility] Dec 09, 2024 08:50 AM MYELOGRAM THORACIC (P): VALERIEAWAIS SALVADOR [id number] -1990 F Exm Date: DEC 09, 2024@08:50 Req Phys: STEPHEN FRANCOIS Pat Loc: [facility] NEUROSURG MEDICAL AFFAIRS DIRECTOR CONSULT-A (Re Img Loc: MAIN X-RAY Service: Unknown Screen: [place] [address] (Case [id number] COMPLETE) MYELOGRAM THORACIC VIA LUMBAR INJ(RAD Detailed) CPT:47218 Reason for Study: Eval for arachnoid web or cyst at T6 level Clinical History: myelopathy Outside hosptial Thoracic mri w wo contrast is loaded into [facility]. Please do comparison . 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 Thoracic myelogram. History: Myelopathy. Thoracic MRI shows dorsal lesion at T6. Comparison: Outside recent thoracic MRI exam from the [facility]. Fluoro time: 0.8 minute Dose: [...] Interpreting Staff: CARITO POLANCO MD, RADIOLOGIST (Associate Professor Of Geology) /CARITO [facility] Nov 22, 2024 07:12 PM NON [place] MRI THORACI C SPINE: AWAIS PADILLA [id number] -1990 F Exm Date: NOV 22, 2024@19:12 Req Phys: MARÍA SEAY Loc: [facility] XRAY GENERAL AM (Req'g Loc Img Loc: OUTSOURCE MRI Service: Unknown Screen: Patient answered no (Case [id number] COMPLETE) NON [facility] MRI THORACIC SPINE (MRI Detailed) CPT:19345 Reason for Study: OUTSIDE STUDY Clinical History: OUTSIDE STUDY Report Status: Electronically Filed Date Reported: NOV 30, 2024 Report: This is an outside Imaging study and/or report imported for continuity of patient care. This Imaging study and/or report was not reviewed or verified by a [place] Radiologist. Impression: This is an outside Imaging study and/or report imported for continuity of patient care. This Imaging study and/or report was not reviewed or verified by a [place] Radiologist. Primary Diagnostic Code: VERIFIED BY: / *ELECTRONICALLY FILED* [facility] Nov 15, 2024 12:[address] BODY W/O CO NTRAST (P): AWAIS PADILLA [id number] -1990 F Exm Date: NOV 15, 2024@12:39 Req Phys: KURT NEWELL Loc: [facility] ONC [facility] (Req'g Loc) Img Loc: NUC MED Service: Unknown Screen: [place] [address] (Case [id number] COMPLETE) SKULL-THIGH PET IMAGE W/CT (NM Detailed) CPT:47111 Reason for Study: Evaluation for malignacy (Case [...] pager listed below: User placing orders pager: [phone] LAST CREATININE 0.6 (07/24/24) Report Status: Verified Date Reported: NOV 15, 2024 Date Verified: NOV 15, 2024 Associate Professor Of Geology E-Sig:/ES/CAIN SMART MD Report: PET/CT SCAN INDICATION: [...] CAIN SMART MD, RADIOLOGY STAFF PHYSICIAN (Associate Professor Of Geology) /CAIN CR [facility] Nov 10, 2024 10:23 AM NON AR MRI THORACI C SPINE: AWAIS PADILLA [id number] -1990 F Exm Date: NOV 10, 2024@10:23 Req Phys: MARÍA SEAY Pat Loc: [facility] XRAY GENERAL AM (Req'g Loc Img Loc: OUTSOURCE MRI Service: Unknown Screen: Patient answered no (Case [id number] COMPLETE) NON [facility] MRI THORACIC SPINE (MRI Detailed) CPT:77216 Reason for Study: OUTSIDE STUDY Clinical History: OUTSIDE STUDY Report Status: Electronically Filed Date Reported: NOV 30, 2024 Report: This is an outside Imaging study and/or report imported for continuity of patient care. This Imaging study and/or report was not reviewed or verified by a [place] Radiologist. Impression: This is an outside Imaging study and/or report imported for continuity of patient care. This Imaging study and/or report was not reviewed or verified by a [place] Radiologist. Primary Diagnostic Code: VERIFIED BY: / *ELECTRONICALLY FILED* [facility] Nov 10, 2024 10:03 AM NON AR MRI CERVICA L SPINE: AWAIS PADILLA [id number] 1990 F Exm Date: NOV 10, 2024@10:03 Req Phys: MARÍA SEAY Loc: [facility] XRAY GENERAL AM (Req'g Loc Img Loc: OUTSOURCE MRI Service: Unknown Screen: Patient answered no (Case [id number] COMPLETE) NON AR MRI CERVICAL SPINE (MRI Detailed) CPT:31632 Reason for Study: OUTSIDE STUDY Clinical History: OUTSIDE STUDY Report Status: Electronically Filed Date Reported: NOV 30, 2024 Report: This is an outside Imaging study and/or report imported for continuity of patient care. This Imaging study and/or report was not reviewed or verified by a [place] Radiologist. Impression: This is an outside Imaging study and/or report imported for continuity of patient care. This Imaging study and/or report was not reviewed or verified by a [place] Radiologist. Primary Diagnostic Code: VERIFIED BY: / *ELECTRONICALLY FILED* [facility] Nov 10, 2024 09:46 AM NON AR MRI LUMBAR SPINE: AWAIS PADILLA [id number] 1990 F Exm Date: NOV 10, 2024@09:46 Req Phys: MARÍA SEAY Loc: [facility] XRAY GENERAL AM (Req'g Loc Img Loc: OUTSOURCE MRI Service: Unknown Screen: Patient answered no (Case [id number] COMPLETE) NON [place] MRI LUMBAR SPINE (MRI Detailed) CPT:64747 Reason for Study: OUTSIDE STUDY Clinical History: OUTSIDE STUDY Report Status: Electronically Filed Date Reported: NOV 30, 2024 Report: This is an outside Imaging study and/or report imported for continuity of patient care. This Imaging study and/or report was not reviewed or verified by a [place] Radiologist. Impression: This is an outside Imaging study and/or report imported for continuity of patient care. This Imaging study and/or report was not reviewed or verified by a [place] Radiologist. Primary Diagnostic Code: VERIFIED BY: / *ELECTRONICALLY FILED* [facility] Encounter Notes: All associated encounter [...] PPE during every encounter with the patient, MD/PA/MEDICAL AFFAIRS DIRECTOR used PPE during every encounter with the [...] REGISTERED NURSE Signed: 11/26/2024 15:[address] [facility] Nov 26, 2024 03:35 PM ACCOUNTING OF DISCLOSURES NOTE: LOCAL TITLE: STATE PRESCRIPTION DRUG MONITORING PROGRAM STANDARD TITLE: ACCOUNTING OF DISCLOSURES NOTE DATE OF NOTE: NOV 26, 2024@15:35:10 ENTRY DATE: NOV 26, 2024@15:35:10 AUTHOR: BRYAN HEDRICK EXP COSIGNER: URGENCY: STATUS: COMPLETED This [facility] query was submitted by Bryan Hedrick. The clinical justification for this [facility] query is to review controlled substances prescribed outside of the [place], and any additional information that may become available, as an important component of standard clinical care, and in accordance with [facility] policy. Patient information was shared with the [facility] [employer] Bryce. Prescription(s) filled outside the [place] in the last 90 days are noted. However, they do not raise significant safety concerns and do not influence the treatment plan at this time. /los/ BRYAN HEDRICK MD EMERGENCY MEDICINE PHYSICIAN Signed: 11/26/2024 15:[address] [facility] Nov 26, 2024 03:34 PM EMERGENCY DEPT [...] repairs you can stop by BU-[id number], Prosthetics, [facility] ([address]) Or call ext. [phone] Future Appointments 02/21/2025 at 10:00am [facility] LAB TIME SENS BLOOD DRAW 02/21/2025 at 11:00am [facility] ONC SCARIA 04/28/2025 at 9:30am [facility] EYE POLYTRAUMA FEHLHAFER This Information Is About [...] are taking other medicines. -You may use [id number]-xuzovbs medicine as directed on the bottle to [...] HOURS NEEDED FOR NAUSEA ONDANSETRON TAB 4MG [id number] (Non-VA Medication) PANTOPRAZOLE NA 40MG EC TAB [...] GO TO THE NEAREST EMERGENCY ROOM /es/ BRYAN HEDRIKC MD EMERGENCY MEDICINE PHYSICIAN Signed: 11/26/2024 15:[address] [facility] Nov 26, 2024 10:20 AM PHYSICIAN EMERGENCY DEPT NOTE: LOCAL TITLE: EMERGENCY DEPT NOTE STANDARD TITLE: PHYSICIAN EMERGENCY DEPT NOTE DATE OF NOTE: NOV 26, 2024@10:20 ENTRY DATE: NOV 26, 2024@10:20:49 AUTHOR: BRYAN HEDRICK EXP COSIGNER: URGENCY: STATUS: COMPLETED Personal Protective Equipment (PPE): MD/PA/MEDICAL AFFAIRS DIRECTOR used PPE during every encounter with the [...] has been seeing a neurologist through the [facility] of neurology for her TBI, and [...] BEDTIME ACTIVE 2) Non-VA ONDANSETRON TAB 4MG [id number] ACTIVE 7 Total Medications Physical Exam: BP: [...] No facial droop. 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 Hip flexion strength is weak [...] without contrast 4 days ago through the [facility] clinic of neurology. She brought the PDF of the [...] send her information and imaging to the [facility] so that this is easier for her [...] weakness 2. Thoracic pain Disposition: Discharge home /es/ BRYAN HEDRICK MD EMERGENCY MEDICINE PHYSICIAN Signed: 11/26/2024 15:34 Receipt Acknowledged By: 11/28/2024 10:04 /los/ María Seay PA-C Physician Registered Nurse First Assistant BRYAN HEDRICK [facility] Nov 26, 2024 10:17 AM NURSING EMERGENCY DEPT NOTE: LOCAL TITLE: EMERGENCY DEPT NURSING NOTE STANDARD TITLE: NURSING EMERGENCY DEPT NOTE DATE OF NOTE: NOV 26, 2024@10:17 ENTRY DATE: NOV 26, 2024@10:17:54 AUTHOR: COLBY NIX COSIGNER: URGENCY: STATUS: COMPLETED EMERGENCY DEPT NURSING [...] period: REVIEW OF SYSTEM-FOCUSED ASSESSMENT Neurological: Alert [place] Coma Scale: Date and Time Preformed: Nov@10:25 [...] REGISTERED NURSE Signed: 11/26/2024 12:[address] 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 Suicide Screen: [place] Suicide Severity Rating Scale (C-SSRS) screener 1. [...] Exposure to potentially hazardous substaTraumatic brain injury ([facility] [id number]) Temporomandibular joint disorder (SCT 41Unintentional weight loss ([facility] [id number]) Mood disorder ([facility] [id number]) Headache ([facility] [id number]) Family history: Myocardial infarction atHistory of cerebrospinal fluid leak (ICD-10-CM R69.) History of gestational diabetes mellitusGeneralized enlarged lymph nodes ([facility] [id number]) Splenomegaly ([facility] [id number]) /es/ SOFIA RAMOS RN CONTROLLED ATMOSPHERIC FURNACE BRAZER Signed: 11/26/2024 09:[address] [facility]
--- OUTSIDE RECORDS SUMMARY | 2025-01-11 10:09 | XMS_ITS | Encounter Summary ---
Author Name [facility] [place] Organization [facility] [place] Address [address] [place] [address] Care Team Providers Care [facility] Chief Name Role Phone LONA CINDY Primary Care Provider Unavail able Selected Encounter This section includes the information on record at [place] for the Encounter. Date/Time Encounter Type Encounter Description Reason Provider Source Jul 24, 2024 02:07 PM EMERGENCY DEPT VISIT [facility] EMERGENCY DEPT ICD-10-CM R10.10 Upper abdominal pain, unspecified JOYCE RUIZ Encounter Template Text not used by [place] Assessments - Encounter Diagnoses This section includes the primary and secondary diagnoses documented for the Encounter. Date/Time Primary/Secondary Diagnosis Diagnosis Name Provider Source Jul 24, 2024 06:17 PM PRIMARY Upper abdominal pain, unspecified CRISTOPHER VIVAS [facility] Plan of Treatment: Future Appointments (+ 6 months) and Future Tests (+/- 45 days) The Plan of Treatment section includes future care activities for the patient from all [place] treatmentfacilities. This section includes future appointments and future orders which are active, pending or scheduled. Future Appointments This section includes appointments that were scheduled to occur 6 months from the date of the Encounter, up to a maximum of 20 appointments. The data comes from all [place] treatment facilities. Appointment Date/Time Appointment Type Appointme nt Facility Name Aug 01, 2024 01:01 PM AMBUL[place]ORY - NONE [place] [facility] [facility] Aug 02, 2024 09:30 AM [facility] Aug 03, 2024 03:00 PM AMBULATORY - REHAB [facility]ICIN [facility] Aug 16, 2024 08:30 AM AMBULATORY - REHAB MEDICIN E [facility] Aug 23, 2024 02:24 PM [facility] Sep 05, 2024 05:20 PM AMBULATORY - REHAB MEDICIN E [facility] Sep 19, 2024 01:00 PM AM[place]ORY - [place]ONE [place] [facility] [facility] Oct 04, 2024 09:00 AM AMBULATORY - REHAB MEDICIN E [facility] Oct 10, 2024 09:30 AM AMBULATORY - REHAB MEDICIN E [facility] Oct 25, 2024 10:00 AM [facility] Oct 25, 2024 05:10 PM AMBULATORY - REHAB MEDICIN E [facility] Nov 15, 2024 12:45 PM [place]ORY - [place]ONE [place] [facility] [facility] Nov 22, 2024 09:30 AM [place] [facility] Nov 22, 2024 10:30 AM [facility] Nov 25, 2024 09:30 AM AMBULATORY - SURGERY [facility] Nov 26, 2024 09:29 AM [facility] Nov 30, 2024 11:00 AM AMBULATORY - SURGERY [facility] Dec 02, 2024 08:00 AM AMBULATORY - REHAB MEDICIN E [facility] Dec 09, 2024 08:30 AM [place]ORY - [place]ONE [place] [facility] [facility] Dec 09, 2024 09:30 AM [facility] Lab Results: +/- 30 days [...] Range Comment Aug 23, 2024 03:57 PM [facility] COVID-19 AND FLU/RSV DIAG PANEL(CEPHEID) Specimen Typ e: NASOPHARYNGEAL Comment: Cepheid GeneXpert (618) Ordering Provider: RANDAL CHAMBERLAIN Report Released Date/Time: Aug 23, 2024 03:43 PM Reporting Lab: [facility] [id number] Performing Lab: [facility] [phone] COVID-19 (CEPHEID) Not Detected Not Detected INFLUENZA A (PCR) Not Detected Not Detected INFLUENZA B (PCR) Not Detected Not Detected RSV (PCR) Not Detected Not Detected Aug 23, 2024 03:57 PM [facility] HCG, QUAL Specimen Type: URINE Comment: Cepheid GeneXpert (618) Ordering Provider: RANDAL CHAMBERLAIN Report Released Date/Time: Aug 23, 2024 03:47 PM Reporting Lab: [facility] [address] Performing Lab: [facility] [address] HCG, QUAL NEGATIVE -neg- Aug 23, 2024 03:30 PM [facility] URINALYSIS Specimen Type: URINE No comment entered. Ordering Provider: RANDAL CHAMBERLAIN Report Released Date/Time: Aug 23, 2024 03:43 PM Reporting Lab: [facility] [address] Performing Lab: [facility] [address] URINE COLOR LIGHT-YELLOW SPECIFIC GRAVITY 1.014 1.003-1.03 [...] NEGATIVE NEGATIVE Jul 24, 2024 04:10 PM [facility] HCG, QUAL Specimen Type: URINE No comment entered. Ordering Provider: IGNACIO VIVAS Report Released Date/Time: Jul 24, 2024 02:59 PM Reporting Lab: [facility] [address] Performing Lab: [facility] [address] HCG, QUAL NEGATIVE -neg- Jul 24, 2024 04:10 PM [facility] URINALYSIS Specimen Type: URINE No comment entered. Ordering Provider: IGNACIO VIVAS Report Released Date/Time: Jul 24, 2024 02:59 PM Reporting Lab: [facility] [address] Performing Lab: [facility] [address] URINE COLOR LIGHT-YELLOW SPECIFIC GRAVITY 1.023 1.003-1.03 [...] NEGATIVE NEGATIVE Jul 24, 2024 03:09 PM [facility] EXTRA GOLD GEL TUBE Specimen Type: SERUM No comment entered. Ordering Provider: IGNACIO VIVAS Report Released Date/Time: Jul 24, 2024 03:09 PM Reporting Lab: [facility] [address] Performing Lab: [facility] [address] EXTRA GOLD GEL TUBE RECEIVED Jul 24, 2024 03:08 PM [facility] PROTHROMBIN TIME/INR Specimen Type: PLASMA No comment entered. Ordering Provider: IGNACIO VIVAS Report Released Date/Time: Jul 24, 2024 02:59 PM Reporting Lab: [facility] [address] Performing Lab: [facility] [address] .INR 1.0 0.8-1.1 .PT 12.1 s 9.4-12.5 Jul 24, 2024 03:08 PM [facility] CBC & DIFF Specimen Type: BLOOD Comment: Automated Differential Performed Ordering Provider: IGNACIO VIVAS Report Released Date/Time: Jul 24, 2024 02:59 PM Reporting Lab: [facility] [address] Performing Lab: [facility] [address] WBC 4.4 4.0-11.0 RBC 4.48 4.00-5.40 HGB [...] PRO) 0.2 ABS IMMATURE GRAN 0.0 0-0.1 Jul 24, 2024 03:08 PM [facility] COMPREHENSIVE METABOLIC PANEL+MG Specimen Type: PLASMA No comment entered. Ordering Provider: IGNACIO VIVAS Report Released Date/Time: Jul 24, 2024 02:59 PM Reporting Lab: [facility] [address] Performing Lab: [facility] [address] CREATININE 0.6 mg/dL 0.5-1.0 UREA NITROGEN 10 [...] 16 U/L 11-34 .CREAT EGFR(CKD-EPI) >90 >60 Vital Signs: All taken on the encounter date This section contains inpatient and outpatient Vital Signs collected on the date of the Encounter. Date/Time Temperature Pulse Blood Pressure Respiratory Rate SP02 Pain Height Weight Body Mass Index Source Jul 24, 2024 06:15 PM 67 118/71 15 98 [facility] Jul 24, 2024 02:33 PM 98.3 80 123/81 16 99 8 [facility] Jul 24, 2024 02:32 PM 77 123/81 16 99 8 [facility] Social History: Smoking Status (Most current) and Tobacco Use (All prior to encounter date) This section includes the most current, and the historical, smoking and tobacco- related health factors from the [place] facility where the Encounter took place. Current Smoking Status This section includes the most current smoking, or tobacco-related health factor, from the [place] facility where the Encounter took place. Date/Time Current Smoking Status Comment Facil ity Nov 27, 2023 03:30 PM VA-TOBACCO FORMER USER [facility] Tobacco Use History This section includes a history of the smoking, or tobacco-related health factors, that were collected on or before the date of the Encounter. The data comes from the [place] facility where the Encounter took place. Date/Time Smoking Status/Tobacco Use Comment F acility Nov 27, 2023 03:30 PM VA-TOBACCO QUIT 5 TO < 15 YRS [facility] Jan 14, 2023 09:03 AM VA-TOBACCO FORMER USER [facility] Jan 14, 2023 09:03 AM VA-TOBACCO QUIT 5 TO < 15 YRS [facility] Radiology Reports: +/- 30 days [...] the Encounter. The data comes from all [facility] facilities. Date/Time Radiology Report Provider Source Aug 23, 2024 04:06 PM CHEST 2 VIEWS PA A CARA LAT: AWAIS PADILLA [id number] -1990 F Exm Date: AUG 23, 2024@16:06 Req Phys: RANDAL CHAMBERLAIN Loc: [facility] EMERGENCY DEPT WALK-IN (Re Img Loc: MAIN X-RAY Service: Unknown Screen: [place] [address] (Case [id number] COMPLETE) CHEST 2 VIEWS PA AND LAT (RAD Detailed) CPT:00930 Reason for Study: same Clinical History: [place] IS under investigation (PUI) for COVID-19 or is COVID-19+ Cough x 1 day Responsible provider name and phone number to notify for critical findings if other than user placing the order and pager listed below: User placing orders pager: LAST CREATININE 0.6 (07/24/24) Report Status: Verified Date Reported: AUG 23, 2024 Date Verified: AUG 23, 2024 Single Wire Saw Operator E-Sig:/ES/CODY CASTILLO MD Report: CHEST 2 VIEWS PA AND LAT 08/23/2024 INDICATION: same COMPARISON: None. FINDINGS: Heart and pulmonary vasculature are within normal limits for size. Lungs are clear. Bones are unremarkable. Impression: No visible acute cardiopulmonary disease. Primary Interpreting Staff: CODY CASTILLO MD, RADIOLOGIST (Single Wire Saw Operator) /CODY RIOS [facility] Jul 24, 2024 03:[address] (AP) ABDOMEN/PE LVIS (P): VALERIEARMENADRIEN SALVADOR [id number] -1990 F Exm Date: JUL 24, 2024@15:44 Req Phys: ÁNGEL VIVAS Loc: [facility] EMERGENCY DEPT WALK-IN (Re Img Loc: CT IMAGING Service: Unknown Screen: [place] [address] (Case [id number] COMPLETE) CT (AP) ABDOMEN/PELVIS W CONTRAST(CT Detailed) CPT:62702 Contrast Media : Non-ionic Iodinated Reason for [...] PLASMA .CREAT EGFR(CKD-E >90 Ref: >=60 Allergies: ([place] only) METOPROLOL (Jan 14, 2023) REGLAN (Jan 14, 2023) Defer to radiologist for final CT protocol. Contact number for responsible provider who can be reached for any questions or notifications of critical findings: tish ext [phone] Per Joint Commission Standards, by signing this diagnostic imaging request the ordering provider confirms they have considered patients age and recent imaging history. Report Status: Verified Date Reported: JUL 24, 2024 Date Verified: JUL 24, 2024 Single Wire Saw Operator E-Sig: Report: CT (AP) ABDOMEN/PELVIS W CONTRAST [PRINTSET] HISTORY: Recurrent LUQ pain COMPARISON: Abdomen and pelvis CT on 02/22/2024. TECHNIQUE: CT of the abdomen and pelvis with multiplanar reformats was performed at the local [place] facility. 823 images were received by the [place] National Teleradiology Program (NTP) for interpretation. RADIATION [...] mild splenomegaly. READING PHYSICIAN: Nunu Jackson MD -[phone] 07/24/2024 14:20 PDT [facility] National Teleradiology Program [phone] (For Medical Practitioner Use Only) Attention Patients / Veterans: If you have questions or concerns about these test results, please contact your ordering provider or primary care team. Primary Interpreting Staff: RADIOLOGY,OUTSIDE SERVICE, Staff Physician / RADIOLOGY,OUTSIDE SERVICE [facility] Pathology Reports: +/- 30 days [...] the Encounter. The data comes from all [place] treatment facilities. Date/Time Pathology Report Provider Source Aug 23, 2024 03:57 PM LR MICROBIOLOGY RE PORT: Reporting Lab: [facility] [CLIA# [id number]] [place] [address] Accession [UID]: [id number] [[id number]] Received: Aug 23, 2024@15:57 Collection sample: URINE Collection date: Aug 23, 2024 15:57 Provider: RANDAL CHAMBERLAIN Comment on specimen: RECEIVED IN STERILE CUP Test(s) ordered: CULTURE & SUSCEPTIBILITY...... completed: Aug 25, 2024 * BACTERIOLOGY FINAL REPORT => Aug 25, 2024 07:44 TECH CODE: [id number] CULTURE RESULTS: LESS THAN 10,000 CFU/ML Bacteriology Remark(s): THIS REPORT IS FINAL =--=--=--=--=--=--=--=--=--=--=--=- -=--=--=--=--=--=--=--=--=--=--=--= --=--=-- Performing Laboratory: Bacteriology Report Performed By: [facility] [CLIA# [id number]] [place] [address] [facility] Encounter Notes: All associated encounter [...] REGISTERED NURSE Signed: 07/24/2024 18:16 JAK BALTAZAR [facility] Jul 24, 2024 05:45 PM [...] no longer going to be at the [place] and so I gave her phone number [...] less than 60 - Maternal grandfather of [place] at 50 8. History of cerebrospinal fluid [...] ACTIVE BEDTIME 2) Non-VA ONDANSETRON TAB 4MG [id number] ACTIVE 5 Total Medications Physical Exam: BP: [...] STAFF PHYSICIAN Signed: 07/25/2024 11:37 JOYCE RUIZ [facility] Jul 24, 2024 05:45 PM [...] before they become major ones. Please contact [phone] to establish a primary care provider Future [...] ED Physician Signed: 07/24/2024 17:45 JOYCE RUIZ [facility] Jul 24, 2024 03:58 PM [...] less than 60 - Maternal grandfather of [place] at 50 8. History of cerebrospinal fluid [...] ACTIVE BEDTIME 2) Non-VA ONDANSETRON TAB 4MG [id number] ACTIVE 5 Total Medications Physical Exam: BP: [...] AWAITING SIGNATURE * JOHN NUGENT CONSTANCE L [facility] Jul 24, 2024 03:55 PM [...] Wristband Removal: Wristband not indicated for removal /es/ JAMIE MURGUIA, RT(R)(CT) CT GRINDER AND PLATER Signed: 07/24/2024 15:55 JAMIE MURGUIA [facility] Jul 24, 2024 03:01 PM [...] less than 60 - Maternal grandfather of [place] at 50 8. History of cerebrospinal fluid [...] ACTIVE BEDTIME 2) Non-VA ONDANSETRON TAB 4MG [id number] ACTIVE 5 Total Medications Physical Exam: BP: [...] no longer going to be at the [place] and so I gave her phone number [...] STAFF PHYSICIAN Signed: 07/25/2024 11:37 ÁNGEL VIVAS [facility] Jul 24, 2024 02:34 PM [...] ACTIVE BEDTIME 2) Non-VA ONDANSETRON TAB 4MG [id number] ACTIVE 5 Total Medications Current Problems: Exposure to potentially hazardous substaTraumatic brain injury (SCT 767023731) Temporomandibular joint disorder (SCT 41Unintentional weight loss (SCT 559265497) Mood disorder (SCT 43382902) Headache (SCT 18094633) Family history: Myocardial infarction atHistory of cerebrospinal fluid leak (ICD-10-CM R69.) History of gestational diabetes mellitusGeneralized enlarged lymph nodes (SCT 408361906) Splenomegaly (SCT 55391641) Identification of Seniors at Risk (ISAR):* Defer screen <75 Suicide Screen: [place] Suicide Severity Rating Scale (C-SSRS) screener 1. [...] responses to other questions. /los/ SOFIA RAMOS BLOW PIT HELPER RN Signed: 07/24/2024 14:36 SOFIA RAMOS [facility]
--- OUTSIDE RECORDS SUMMARY | 2025-01-11 10:09 | XMS_ITS | Encounter Summary ---
Author Name [facility] [place] Organization [facility] [place] Address [address] [place] [address] Care Team Providers Care Orthophoto Tech/Draftsman Name Role Phone CINDY ZAMORANO Primary Care Provider Unavail able Selected Encounter This section includes the information on record at [place] for the Encounter. Date/Time Encounter Type Encounter Description Reason Provider Source Nov 22, 2024 10:30 AM OFFICE O/P EST HI 40 MIN ONCOLOGY/TUMOR ICD-10-CM R16.1 Splenomegaly, not elsewhere classified OSIRISKURT Eunice [facility] Encounter Template Text not used by [place] Assessments - Encounter Diagnoses This section includes the primary and secondary diagnoses documented for the Encounter. Date/Time Primary/Secondary Diagnosis Diagnosis Name Provider Source Nov 22, 2024 10:32 AM PRIMARY Splenomegaly, not elsewhere classified [facility] Nov 22, 2024 10:32 AM SECONDARY Abnormal weight loss [facility] Nov 22, 2024 10:32 AM SECONDARY Other acute sinusitis [facility] Plan of Treatment: [...] 20 appointments. The data comes from all [facility]. Appointment Date/Time Appointment Type Appointme nt Facility Name Nov 25, 2024 09:30 AM AMBULATORY - SURGERY [facility] Nov 26, 2024 09:29 AM AMBULATORY - MEDICINE [facility] Nov 30, 2024 11:00 AM AMBULATORY - SURGERY [facility] Dec 02, 2024 08:00 AM AMBULATORY - REHAB MEDICIN E [facility] Dec 09, 2024 08:30 AM AM[facility]ULATORY - [facility] [facility] Dec 09, 2024 09:30 AM AM[place]ATORY [place] [facility] Dec 09, 2024 10:30 AM AM[place]ULATORY [place] [facility] Dec 09, 2024 10:45 AM AMBULATORY - SURGERY [facility] Dec 13, 2024 01:00 PM AMBULATORY - REHAB MEDICIN E [facility] Dec 16, 2024 07:00 AM AMBULATORY - NONE [facility] Dec 21, 2024 10:00 AM AMBULATORY - REHAB MEDICIN E [facility] Dec 22, 2024 11:00 AM AMBULATORY - SURGERY [facility] Dec 23, 2024 08:00 AM AMBULATORY - REHAB MEDICIN E [facility] Dec 28, 2024 01:00 PM AMBULATORY - REHAB MEDICIN E [facility] Dec 29, 2024 10:00 AM AMBULATORY - REHAB MEDICIN E [facility] Jan 02, 2025 08:30 AM AMBULATORY - REHAB MEDICIN E [facility] Jan 05, 2025 01:58 PM AMBULATORY - MEDICINE [facility] Jan 06, 2025 03:00 PM AMBULATORY - REHAB MEDICIN E [facility] Jan 10, 2025 09:00 AM AMBULATORY - REHAB MEDICIN E [facility] Jan 16, 2025 10:00 AM AMBULATORY - REHAB MEDICIN [facility] Active, Pending, and Scheduled Orders This section includes a listing of several types of active, pending, and scheduled orders, including clinic medications orders, diagnostic test orders, procedure orders and consult orders; where the start date of the order is 45 days before the date of the Encounter or 45 days after the date of theEncounter. The data comes from all [place] treatment facilities. Test Date/Time Test Type Test Details Facility Name Oct 25, 2024 12:00 AM Laboratory - Chemistry Order CBC & DIFF BLOOD ONCO SP ONCE [facility] Nov 25, 2024 10:22 AM Consult Order OT OCCUPATIONAL THERAPY OUTPT VISION THERAPY Cons Project Construction Assistant Manager's Choice [facility] Nov 30, 2024 12:00 AM Laboratory - Chemistry Order CBC BLOOD STAT SP ONCE [facility] Nov 30, 2024 12:00 AM Laboratory - Chemistry Order PROTHROMBIN TIME/INR PLASMA STAT SP [facility] Nov 30, 2024 12:00 AM Laboratory - Chemistry Order CREATININE(INCLUDES EGFR) PLASMA STAT SP ONCE [facility] Dec 01, 2024 11:53 AM Consult Order CSP PCAFC FUNCTIONAL ASSESSMENT INSTRUMENT OUTPT Cons Project Construction Assistant Manager's Choice [facility] Jan 03, 2025 12:08 PM Consult Order OT OCCUPATIONAL THERAPY OUTPT HOME ACCESSIBILITY Cons Project Construction Assistant Manager's Choice [facility] Jan 05, 2025 03:02 PM Consult Order ENT OUTPT Cons Project Construction Assistant Manager's [facility] Lab Results: +/- 30 days of the encounter This section includes the Chemistry and Hematology Lab Results on record with [place] for the patient. Radiology Reports and Pathology Reports are provided separately, in subsequent sections. Lab Results This section contains the Chemistry/Hematology Results that were resulted 30 days before or 30 daysafter the date of the Encounter. Date/Time Source Result Type Result - Unit Interpretation Reference Range Comment Dec 09, 2024 08:34 AM [facility] PROTHROMBIN TIME/INR Specimen Type: PLASMA No comment entered. Ordering Provider: FORD FRANCOIS Report Released Date/Time: Dec 06, 2024 09:29 AM Reporting Lab: [facility] [id number] Performing Lab: [facility] [phone] .INR 1.1 0.8-1.1 .PT 12.9 s H 9.4-12.5 Dec 09, 2024 08:34 AM [facility] CREATININE(INCLUDES EGFR) Specimen Type: PLASMA No comment entered. Ordering Provider: FORD FRANCOIS Report Released Date/Time: Dec 06, 2024 09:29 AM Reporting Lab: [facility] [id number] Performing Lab: [facility] [address] CREATININE 0.6 mg/dL 0.5-1.0 .CREAT EGFR(CKD-EPI) >90 >60 Dec 09, 2024 08:34 AM [facility] CBC & DIFF Specimen Type: BLOOD Comment: Automated Differential Performed Ordering Provider: FORD FRANCOIS Report Released Date/Time: Dec 06, 2024 09:29 AM Reporting Lab: [facility] [phone] Performing Lab: [facility] [address] WBC 4.4 4.0-11.0 RBC 4.42 4.00-5.40 HGB [...] 0.0 0.0-0.1 Nov 22, 2024 09:45 AM [facility] LD,TOTAL Specimen Type: PLASMA No comment entered. Ordering Provider: KURT NEWELL Report Released Date/Time: Apr 26, 2024 10:33 AM Reporting Lab: [facility] [id number] Performing Lab: [facility] [address] LD,TOTAL 194 U/L 125-220 Nov 22, 2024 09:45 AM [facility] URIC ACID Specimen Type: PLASMA No comment entered. Ordering Provider: KURT NEWELL Report Released Date/Time: Apr 26, 2024 10:33 AM Reporting Lab: [facility] [address] Performing Lab: [facility] [address] URIC ACID 5.4 mg/dL 2.5-6.2 Nov 22, 2024 09:45 AM [facility] COMPREHENSIVE METABOLIC PANEL+MG Specimen Type: PLASMA No comment entered. Ordering Provider: KURT NEWELL Report Released Date/Time: Apr 26, 2024 10:33 AM Reporting Lab: [facility] [address] Performing Lab: [facility] [address] CREATININE 0.6 mg/dL 0.5-1.0 UREA NITROGEN 12 [...] >90 >60 Nov 22, 2024 09:44 AM [facility] CBC & DIFF Specimen Type: BLOOD Comment: Automated Differential Performed Ordering Provider: KURT NEWELL Report Released Date/Time: Oct 25, 2024 10:32 AM Reporting Lab: [facility] [phone] Performing Lab: [facility] [address] WBC 5.4 4.0-11.0 RBC 4.58 4.00-5.40 HGB [...] 0.0 0.0-0.1 Nov 15, 2024 12:58 PM [facility] FINGERSTICK GLUCOSE Specimen Type: BLOOD Comment: Save Result Ordering Provider: LISANDRA ZAMORANO Report Released Date/Time: Nov 17, 2024 07:56 AM Reporting Lab: [facility] [phone] Performing Lab: [facility] [address] FINGERSTICK GLUCOSE 87 mg/dL 70-100 Vital Signs: All taken on the encounter date This section contains inpatient and outpatient Vital Signs collected on the date of the Encounter. Date/Time Temperature Pulse Blood Pressure Respiratory Rate SP02 Pain Height Weight Body Mass Index Source Nov 22, 2024 10:09 AM 97.2 73 122/86 16 98 0 223.8 35 [facility] Social History: Smoking Status (Most [...] 27, 2023 03:30 PM VA-TOBACCO FORMER USER [facility] Tobacco Use History This section includes a history of the smoking, or tobacco-related health factors, that were collected on or before the date of the Encounter. The data comes from the [place] facility where the Encounter took place. Date/Time Smoking Status/Tobacco Use Comment F acility Nov 27, 2023 03:30 PM VA-TOBACCO QUIT 5 TO < 15 YRS [facility] Jan 14, 2023 09:03 AM VA-TOBACCO FORMER USER [facility] Jan 14, 2023 09:03 AM VA-TOBACCO QUIT 5 TO < 15 YRS [facility] Radiology Reports: +/- 30 days of [...] 2024 07:03 AM MRI-BRAIN (P): VALERIEARMENADRIEN MODESTO [id number] -1990 F Exm Date: DEC 16, 2024@07:03 Req Phys: STEPHEN FRANCOIS Loc: [facility]OS[facility]G OFFSET PRESSMAN CONSULT-A (Re Img Loc: MRI IMAGING Service: Unknown Screen: [place] [address] (Case [id number] COMPLETE) MRI BRAIN/BRAINSTEM W/O CONTRAST (MRI Detailed) CPT:09340 Reason for Study: Myelopathy Clinical History: Did the ordering provider speak with a windows consultant regarding this imaging exam?No Brain MRI without contrast Myelopathy LAST CREATININE 0.6 (11/22/24) Allergies: METOPROLOL (Jan 14, 2023) REGLAN (Jan 14, 2023) My pager number on record is: [phone]. The pager number/cell phone number above is [...] 16, 2024 Date Verified: DEC 16, 2024 Guest Request Runner E-Sig:/ES/SUJIT DENIS MD Report: MRI BRAIN/BRAINSTEM W/O [...] Primary Interpreting Staff: SUJIT DENIS MD, RADIOLOGIST (Guest Request Runner) /[facility] SUJIT DENIS [facility] Dec 09, 2024 09:[address] MYELOGRAM [facility] (P): VALERIEARMENADRIEN GRIMME [id number] -1990 F Exm Date: DEC 09, 2024@09:52 Req Phys: STEPHEN FRANCOIS Pat Loc: [facility] NEUROSURG OFFSET PRESSMAN CONSULT-A (Re Img Loc: CT IMAGING Service: Unknown Screen: [place] [address] (Case [id number] COMPLETE) CT MYELOGRAM THORACIC SPINE (CT Detailed) CPT:48672 CPT Modifiers : 59 DISTINCT PROCEDURAL SERVICE [...] PLASMA .CREAT EGFR(CKD-E >90 Ref: >=60 Allergies: ([place] only) METOPROLOL (Jan 14, 2023) REGLAN (Jan 14, 2023) Defer to radiologist for final CT protocol. User Placing Order: STEPHEN FRANCOIS L - Office Phone: My pager number on record is: [phone]. The pager number/cell phone number above is NOT correct for reporting critical results, I have entered my correct number below: My correct contact # for critial results is:neurosurgery action installer Trainees only: Enter your staff provider's info here: Per Joint Commission Standards, by signing this diagnostic imaging request the ordering provider confirms they have considered patients age and recent imaging history. Report Status: Verified Date Reported: DEC 09, 2024 Date Verified: DEC 09, 2024 Guest Request Runner E-Sig:/ES/CARITO POLANCO MD Report: CT Thoracic Spine [...] Primary Interpreting Staff: CARITO POLANCO MD, RADIOLOGIST (Guest Request Runner) /CARITO TOLENTINO [facility] Dec 09, 2024 08:50 AM MYELOGRAM THORACIC (P): PADILLA,AWAIS SALVADOR [id number] -1990 F Exm Date: DEC 09, 2024@08:50 Req Phys: STEPHEN FRANCOIS Pat Loc: [facility]OS[facility]G OFFSET PRESSMAN CONSULT-A (Re Img Loc: MAIN X-RAY Service: Unknown Screen: [place] [address] (Case [id number] COMPLETE) MYELOGRAM THORACIC VIA LUMBAR INJ(RAD Detailed) CPT:50973 Reason for Study: Eval for arachnoid web or cyst at T6 level Clinical History: myelopathy Outside hosptial Thoracic mri w wo contrast is loaded into [facility]. Please do comparison . thank you Responsible provider name and phone number to notify for critical findings if other than user placing the order and pager listed below: User placing orders pager: [phone] Neurosurgery action installer LAST CREATININE 0.6 (11/22/24) Report Status: Verified Date Reported: DEC 09, 2024 Date Verified: DEC 09, 2024 Guest Request Runner E-Sig:/ES/CARITO POLANCO MD Report: PROCEDURE: Lumbar puncture [...] Primary Interpreting Staff: CARITO POLANCO MD, RADIOLOGIST (Guest Request Runner) /CARITO TOLENTINO [facility] Nov 22, 2024 07:12 PM NON [place] MRI THORACI C SPINE: AWAIS PADILLA [id number] -1990 F Exm Date: NOV 22, 2024@19:12 Req Phys: CINDY ZAMORANO Loc: [facility] XRAY GENERAL AM (Req'g Loc Img Loc: OUTSOURCE MRI Service: Unknown Screen: Patient answered no (Case [id number] COMPLETE) NON [place] MRI THORACIC SPINE (MRI Detailed) CPT:42564 Reason for Study: OUTSIDE STUDY Clinical History: [...] Diagnostic Code: VERIFIED BY: / *ELECTRONICALLY FILED* [facility] Nov 15, 2024 12:[address] BODY W/O CO NTRAST (P): AWAIS PADILLA [id number] -1990 F Exm Date: NOV 15, 2024@12:39 Req Phys: KURT NEWELL Pat Loc: [facility] ONC [facility] (Req'g Loc) Img Loc: NUC MED Service: Unknown Screen: [place] [address] (Case [id number] COMPLETE) SKULL-THIGH PET IMAGE W/CT (NM Detailed) CPT:04928 Reason for Study: Evaluation for malignacy (Case [...] pager listed below: User placing orders pager: [phone] LAST CREATININE 0.6 (07/24/24) Report Status: Verified Date Reported: NOV 15, 2024 Date Verified: NOV 15, 2024 Guest Request Runner E-Sig:/ES/CAIN SMART MD Report: PET/CT SCAN INDICATION: [...] Staff: CAIN SMART MD, RADIOLOGY STAFF PHYSICIAN (Guest Request Runner) /CAIN CR [facility] Nov 10, 2024 10:23 AM NON [place] MRI THORACI C SPINE: AWAIS PADILLA [id number] -1990 F Exm Date: NOV 10, 2024@10:23 Req Phys: CINDY ZAMORANO Loc: [facility] XRAY GENERAL AM (Req'g Loc Img Loc: OUTSOURCE MRI Service: Unknown Screen: Patient answered no (Case [id number] COMPLETE) NON [place] MRI THORACIC SPINE (MRI Detailed) CPT:37949 Reason for Study: OUTSIDE STUDY Clinical History: [...] Diagnostic Code: VERIFIED BY: / *ELECTRONICALLY FILED* [facility] Nov 10, 2024 10:03 AM NON [place] MRI CERVICA L SPINE: AWAIS PADILLA [id number] -1990 F Exm Date: NOV 10, 2024@10:03 Req Phys: CINDY ZAMORANO Pat Loc: [facility] XRAY GENERAL AM (Req'g Loc Img Loc: OUTSOURCE MRI Service: Unknown Screen: Patient answered no (Case 1904 COMPLETE) NON [place] MRI CERVICAL SPINE (MRI Detailed) CPT:77498 Reason for Study: OUTSIDE STUDY Clinical History: [...] Diagnostic Code: VERIFIED BY: / *ELECTRONICALLY FILED* [facility] Nov 10, 2024 09:46 AM NON [place] MRI LUMBAR SPINE: AWAIS PADILLA [id number] -1990 F Exm Date: NOV 10, 2024@09:46 Req Phys: CINDY ZAMORANO Pat Loc: [facility] XRAY GENERAL AM (Req'g Loc Img Loc: OUTSOURCE MRI Service: Unknown Screen: Patient answered no (Case [id number] COMPLETE) NON [place] MRI LUMBAR SPINE (MRI Detailed) CPT:16335 Reason for Study: OUTSIDE STUDY Clinical History: [...] Diagnostic Code: VERIFIED BY: / *ELECTRONICALLY FILED* [facility] Encounter Notes: All associated encounter notes [...] she was seen by Neurology at a non-[place] facility. She had and MRI which demonstrated [...] AT BEDTIME ACTIVE Non-VA ONDANSETRON TAB 4MG [id number] ACTIVE 6 Total Medications Allergies: METOPROLOL (Jan 14, 2023) REGLAN (Jan 14, 2023) Nurse's notes reviewed. Past medical history (list previous surgeries/illnesses/dates): Active Problems: Exposure to potentially hazardous substaTraumatic brain injury ([facility] [id number]) Temporomandibular joint disorder ([facility] 41Unintentional weight loss ([facility] 086527690) Mood disorder ([facility] 31224963) Headache ([facility] [id number]) Family history: Myocardial infarction atHistory of cerebrospinal fluid leak (ICD-10-CM R69.) History of gestational diabetes mellitusGeneralized enlarged lymph nodes ([facility] [id number]) Splenomegaly ([facility] [id number]) Physical Exam: Vital signs: Height: 67 in [...] evidence of malignancy. Patient will follow[facility]up with [facility] Neurolgist for her recent MRI findings. Notified [facility]. Will prescribe a short course of doxycycline for sinusitis symptoms. PLAN: - Doxycycline 100mg BID X 5 days. Patient to follow-up with PCP if symptoms do not improve - Patient to follow-up with outside Neurology - Follow-up in 3 months Counseling Time: 35 minutes Total Visit Time: 40 minutes // KURT NEWELL HEM/ONC STAFF PHYSICIAN Signed: 11/30/2024 08:47 KURT NEWELL [facility] Nov 22, 2024 10:11 AM INTERNAL MEDICINE [...] LPN LPN Signed: 11/22/2024 10:12 JOSUE HSU [facility]
--- OUTSIDE RECORDS SUMMARY | 2025-01-11 10:09 | XMS_ITS | Encounter Summary ---
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 Date/Time Encounter Type Encounter Description Reason Pro vider Source Dec 09, 2024 09:33 AM Outpatient Encounter EVENT (HISTORICAL) E Encounter Template Text not used by [place] Plan of Treatment: Future Appointments (+ 6 [...] 20 appointments. The data comes from all [place] treatment facilities. Appointment Date/Time Appointment Type Appointme nt Facility Name Dec 13, 2024 01:00 [facility], [facility]24 07:00 AM [facility] - NONE [facility] Dec 21, 2024 10:00 AM AMBULATORY - RE[facility]AB MEDICIN [facility] Dec 22, 2024 11:00 AM AMBULATORY - SURGERY [facility] Dec 23, 2024 08:00 AM AMBULATORY - REHAB MEDICIN E [facility] Dec 28, 2024 01:00 PM AMBULATORY - REHAB MEDICIN E [facility] Dec 29, 2024 10:00 AM AMBULATORY - REHAB MEDICIN E [facility] Jan 02, 2025 08:30 AM AMBULATORY - REHAB MEDICIN E [facility] Jan 05, 2025 01:58 PM AMBULATORY - MEDICINE [facility] Jan 06, 2025 03:00 PM AMBULATORY - REHAB MEDICIN E [facility] Jan 10, 2025 09:00 AM AMBULATORY - REHAB MEDICIN E [facility] Jan 16, 2025 10:00 AM AMBULATORY - REHAB MEDICIN E [facility] Jan 18, 2025 09:00 AM AMBULATORY - REHAB MEDICIN [facility] Jan 23, 2025 09:00 AM AMBULATORY - REHAB MEDICIN E [facility] Jan 25, 2025 09:00 AM AMBULATORY - REHAB MEDICIN [facility] February 21, 2025 10:00 AM AMBULATORY - NONE [facility] February 21, 2025 11:00 AM AMBULATORY - MEDICINE [facility] February 28, 2025 01:00 PM AMBULATORY - REHAB MEDICIN [facility] March 14, 2025 02:00 PM AMBULATORY - REHAB MEDICIN [facility] Apr 28, 2025 09:30 AM AMBULATORY - SURGERY [facility] Active, Pending, and Scheduled Orders [...] CBC & DIFF BLOOD ONCO SP ONCE [facility] Nov 25, 2024 10:22 AM Consult Order OT OCCUPATIONAL THERAPY OUTPT VISION THERAPY Cons Video Editor's Choice [facility] Nov 30, 2024 12:00 AM Laboratory - Chemistry Order CBC BLOOD STAT SP ONCE [facility] Nov 30, 2024 12:00 AM Laboratory - Chemistry Order PROTHROMBIN TIME/INR PLASMA STAT SP [facility] Nov 30, 2024 12:00 AM Laboratory - Chemistry Order CREATININE(INCLUDES EGFR) PLASMA STAT SP ONCE [facility] Dec 01, 2024 11:53 AM Consult Order CSP PCAFC FUNCTIONAL ASSESSMENT INSTRUMENT OUTPT Cons Video Editor's Choice [facility] Jan 03, 2025 12:08 PM Consult Order OT OCCUPATIONAL THERAPY OUTPT HOME ACCESSIBILITY Cons Video Editor's Choice [facility] Jan 05, 2025 03:02 PM Consult Order ENT OUTPT Cons Video Editor's Choice [facility] Lab Results: +/- 30 days of the [...] Range Comment Dec 09, 2024 08:34 AM [facility] PROTHROMBIN TIME/INR Specimen Type: PLASMA No comment entered. Ordering Provider: FORD FRANCOIS Report Released Date/Time: Dec 06, 2024 09:29 AM Reporting Lab: [facility] [id number] Performing Lab: [facility] [address] .INR 1.1 0.8-1.1 .PT 12.9 s H 9.4-12.5 Dec 09, 2024 08:34 AM [facility] CREATININE(INCLUDES EGFR) Specimen Type: PLASMA No comment entered. Ordering Provider: FORD FRANCOIS Report Released Date/Time: Dec 06, 2024 09:29 AM Reporting Lab: [facility] [address] Performing Lab: [facility] [address] CREATININE 0.6 mg/dL 0.5-1.0 .CREAT EGFR(CKD-EPI) >90 >60 Dec 09, 2024 08:34 AM [facility] CBC & DIFF Specimen Type: BLOOD Comment: Automated Differential Performed Ordering Provider: FORD FRANCOIS Report Released Date/Time: Dec 06, 2024 09:29 AM Reporting Lab: [facility] [address] Performing Lab: [facility] [address] WBC 4.4 4.0-11.0 RBC 4.42 4.00-5.40 HGB [...] 0.0 0.0-0.1 Nov 22, 2024 09:45 AM [facility] LD,TOTAL Specimen Type: PLASMA No comment entered. Ordering Provider: KURT NEWELL Report Released Date/Time: Apr 26, 2024 10:33 AM Reporting Lab: [facility] [address] Performing Lab: [facility] [id number] LD,TOTAL 194 U/L 125-220 Nov 22, 2024 09:45 AM [facility] URIC ACID Specimen Type: PLASMA No comment entered. Ordering Provider: KURT NEWELL Report Released Date/Time: Apr 26, 2024 10:33 AM Reporting Lab: [facility] [address] Performing Lab: [facility] [address] URIC ACID 5.4 mg/dL 2.5-6.2 Nov 22, 2024 09:45 AM [facility] COMPREHENSIVE METABOLIC PANEL+MG Specimen Type: PLASMA No comment entered. Ordering Provider: KURT NEWELL Report Released Date/Time: Apr 26, 2024 10:33 AM Reporting Lab: [facility] [address] Performing Lab: [facility] [address] CREATININE 0.6 mg/dL 0.5-1.0 UREA NITROGEN 12 [...] >90 >60 Nov 22, 2024 09:44 AM [facility] CBC & DIFF Specimen Type: BLOOD Comment: Automated Differential Performed Ordering Provider: KURT NEWELL Report Released Date/Time: Oct 25, 2024 10:32 AM Reporting Lab: [facility] [address] Performing Lab: [facility] [address] WBC 5.4 4.0-11.0 RBC 4.58 4.00-5.40 HGB [...] 0.0 0.0-0.1 Nov 15, 2024 12:58 PM [facility] FINGERSTICK GLUCOSE Specimen Type: BLOOD Comment: Save Result Ordering Provider: LISANDRA ZAMORANO Report Released Date/Time: Nov 17, 2024 07:56 AM Reporting Lab: [facility] [address] Performing Lab: [facility] [address] FINGERSTICK GLUCOSE 87 mg/dL 70-100 Vital Signs: All taken on the encounter date This section contains inpatient and outpatient Vital Signs collected on the date of the Encounter. Date/Time Temperature Pulse Blood Pressure Respiratory Rate SP02 Pain Height Weight Body Mass Index Source Dec 09, 2024 10:52 AM 69 124/79 [facility] Dec 09, 2024 10:37 AM 72 113/73 [facility] Dec 09, 2024 10:22 AM 70 98 [facility] Dec 09, 2024 10:22 AM 98.5 66 117/80 98 [facility] Social History: Smoking Status (Most current) [...] 27, 2023 03:30 PM VA-TOBACCO FORMER USER [facility] Tobacco Use History This section includes a history of the smoking, or tobacco-related health factors, that were collected on or before the date of the Encounter. The data comes from the [place] facility where the Encounter took place. Date/Time Smoking Status/Tobacco Use Comment F acility Nov 27, 2023 03:30 PM VA-TOBACCO QUIT 5 TO < 15 YRS [facility] Jan 14, 2023 09:03 AM VA-TOBACCO FORMER USER [facility] Jan 14, 2023 09:03 AM VA-TOBACCO QUIT 5 TO < 15 YRS [facility] Radiology Reports: +/- 30 days of the [...] 2024 07:03 AM MRI-BRAIN (P): AWAIS PADILLA [id number] -1990 F Exm Date: DEC 16, 2024@07:03 Req Phys: STEPHEN FRANCOIS Loc: [facility] [employer] CONSULT-A (Re Img Loc: MRI IMAGING Service: Unknown Screen: [place] [address] (Case [id number] COMPLETE) MRI BRAIN/BRAINSTEM W/O CONTRAST (MRI Detailed) CPT:52380 Reason for Study: Myelopathy Clinical History: Did the ordering provider speak with a change consultant regarding this imaging exam?No Brain MRI without contrast Myelopathy LAST CREATININE 0.6 (11/22/24) Allergies: METOPROLOL (Jan 14, 2023) REGLAN (Jan 14, 2023) My pager number on record is: [phone]. The pager number/cell phone number above is [...] 16, 2024 Date Verified: DEC 16, 2024 Rod Pointer E-Sig:/ES/SUJIT DENIS MD Report: MRI BRAIN/BRAINSTEM W/O [...] Primary Interpreting Staff: SUJIT DENIS MD, RADIOLOGIST (Rod Pointer) /[facility] SUJIT DENIS [facility] Dec 09, 2024 09:[address] MYELOGRAM THORA CIC (P): VALERIEARMENADRIEN SALVADOR [id number] -1990 F Exm Date: DEC 09, 2024@09:52 Req Phys: STEPHEN FRANCOIS Loc: [facility] [employer] CONSULT-A (Re Img Loc: CT IMAGING Service: Unknown Screen: [place] [address] (Case [id number] COMPLETE) CT MYELOGRAM THORACIC SPINE (CT Detailed) CPT:44167 CPT Modifiers : 59 DISTINCT PROCEDURAL SERVICE [...] PLASMA .CREAT EGFR(CKD-E >90 Ref: >=60 Allergies: ([place] only) METOPROLOL (Jan 14, 2023) REGLAN (Jan 14, 2023) Defer to radiologist for final CT protocol. User Placing Order: STEPHEN FRANCOIS Nikita - Office Phone: My pager number on record is: [phone]. The pager number/cell phone number above is NOT correct for reporting critical results, I have entered my correct number below: My correct contact # for critial results is:neurosurgery environmental conflict manager Trainees only: Enter your staff provider's info here: Per Joint Commission Standards, by signing this diagnostic imaging request the ordering provider confirms they have considered patients age and recent imaging history. Report Status: Verified Date Reported: DEC 09, 2024 Date Verified: DEC 09, 2024 Rod Pointer E-Sig:/ES/CARITO POLANCO MD Report: CT Thoracic Spine [...] Primary Interpreting Staff: CARITO POLANCO MD, RADIOLOGIST (Rod Pointer) /CARITO TOLENTINO [facility] Dec 09, 2024 08:50 AM MYELOGRAM THORACIC (P): AWAIS PADILLA [id number] -1990 F Exm Date: DEC 09, 2024@08:50 Req Phys: STEPHEN FRANCOIS Loc: [facility]UROSURG [employer] CONSULT-A (Re Img Loc: MAIN X-RAY Service: Unknown Screen: [place] [address] (Case [id number] COMPLETE) MYELOGRAM THORACIC VIA LUMBAR INJ(RAD Detailed) CPT:57996 Reason for Study: Eval for arachnoid web or cyst at T6 level Clinical History: myelopathy Outside hosptial Thoracic mri w wo contrast is loaded into [facility]. Please do comparison . thank you Responsible provider name and phone number to notify for critical findings if other than user placing the order and pager listed below: User placing orders pager: [phone] Neurosurgery environmental conflict manager LAST CREATININE 0.6 (11/22/24) Report Status: Verified Date Reported: DEC 09, 2024 Date Verified: DEC 09, 2024 Rod Pointer E-Sig:/ES/CARITO POLANCO MD Report: PROCEDURE: Lumbar puncture with fluoroscopic guidance. Thoracic myelogram. History: Myelopathy. Thoracic MRI shows dorsal lesion at T6. Comparison: Outside recent thoracic MRI exam from the [facility]. Fluoro time: 0.8 minute Dose: Air Kerma: 3.9, mGy, DAP: 3.54, dGy.cm? PROCEDURE: The patient/medical decision-maker understood the limitations, alternatives, and risks of the procedure and requested the procedure be performed. Both iMed and oral consent were obtained. A pre-procedural Time-Out was performed per [facility] policy. The patient was prepped and draped [...] Primary Interpreting Staff: CARITO POLANCO MD, RADIOLOGIST (Rod Pointer) /CARITO TOLENTINO [facility] Nov 22, 2024 07:12 PM NON [place] MRI THORACI C SPINE: AWAIS PADILLA [id number] -1990 F Exm Date: NOV 22, 2024@19:12 Req Phys: CINDY ZAMORANO Loc: [facility] XRAY GENERAL AM (Req'g Loc Img Loc: OUTSOURCE MRI Service: Unknown Screen: Patient answered no (Case [id number] COMPLETE) NON [place] MRI THORACIC SPINE (MRI Detailed) CPT:20269 Reason for Study: OUTSIDE STUDY Clinical History: [...] Diagnostic Code: VERIFIED BY: / *ELECTRONICALLY FILED* [facility] Nov 15, 2024 12:[address] BODY W/O CO NTRAST (P): AWAIS PADILLA [id number] -1990 F Exm Date: NOV 15, 2024@12:39 Req Phys: KURT NEWELL Pat Loc: [facility] ONC OSIRIS (Req'g Loc) Img Loc: NUC MED Service: Unknown Screen: [place] [address] (Case [id number] COMPLETE) SKULL-THIGH PET IMAGE W/CT (NM Detailed) CPT:81493 Reason for Study: Evaluation for malignacy (Case [...] pager listed below: User placing orders pager: [phone] LAST CREATININE 0.6 (07/24/24) Report Status: Verified Date Reported: NOV 15, 2024 Date Verified: NOV 15, 2024 Rod Pointer E-Sig:/ES/CAIN SMART MD Report: PET/CT SCAN INDICATION: [...] Staff: CAIN SMART MD, RADIOLOGY STAFF PHYSICIAN (Rod Pointer) /CAIN CR [facility] Nov 10, 2024 10:23 AM NON [place] THORACI C SPINE: AWAIS PADILLA [id number] -1990 F Exm Date: NOV 10, 2024@10:23 Req Phys: CINDY ZAMORANO Pat Loc: [facility] XRAY GENERAL AM (Req'g Loc Img Loc: OUTSOURCE MRI Service: Unknown Screen: Patient answered no (Case [id number] COMPLETE) [place] THORACIC SPINE (MRI Detailed) CPT:44477 Reason for Study: OUTSIDE STUDY Clinical History: [...] Diagnostic Code: VERIFIED BY: / *ELECTRONICALLY FILED* [facility] Nov 10, 2024 10:03 AM NON [place] CERVICA L SPINE: AWAIS PADILLA [id number] -1990 F Exm Date: NOV 10, 2024@10:03 Req Phys: CINDY ZAMORANO Loc: [facility] XRAY GENERAL AM (Req'g Loc Img Loc: OUTSOURCE MRI Service: Unknown Screen: Patient answered no (Case [id number] COMPLETE) NON [place] MRI CERVICAL SPINE (MRI Detailed) CPT:44670 Reason for Study: OUTSIDE STUDY Clinical History: [...] Diagnostic Code: VERIFIED BY: / *ELECTRONICALLY FILED* [facility] Nov 10, 2024 09:46 AM NON [place] LUMBAR SPINE: AWAIS PADILLA [id number] -1990 F Exm Date: NOV 10, 2024@09:46 Req Phys: CINDY ZAMORANO Loc: [facility] XRAY GENERAL AM (Req'g Loc Img Loc: OUTSOURCE MRI Service: Unknown Screen: Patient answered no (Case [id number] COMPLETE) NON [place] MRI LUMBAR SPINE (MRI Detailed) CPT:00287 Reason for Study: OUTSIDE STUDY Clinical History: [...] Diagnostic Code: VERIFIED BY: / *ELECTRONICALLY FILED* [facility]
--- OUTSIDE RECORDS SUMMARY | 2025-01-11 10:09 | XMS_ITS | Encounter Summary ---
Author Name [facility] [place] Organization [facility] [place] Address [address] [place] [id number] Care Team Providers Care Rn Diabetes Name Role Phone MARÍA SEAY Primary Care Provider Unavail able Selected Encounter This section includes the information on record at [place] for the Encounter. Date/Time Encounter Type Encounter Description Reason Pro vider Source Dec 07, 2024 02:38 PM Outpatient Encounter PRIMARY CARE/MEDICINE [facility] Encounter Template Text not used by [place] Plan of Treatment: Future Appointments (+ 6 months) and Future Tests (+/- 45 days) The Plan of Treatment section includes future care activities for the patient from all [place] treatmentfacilities. This section includes future appointments and future orders which are active, pending or scheduled. Future Appointments This section includes appointments that were scheduled to occur 6 months from the date of the Encounter, up to a maximum of 20 appointments. The data comes from all [place] treatment facilities. Appointment Date/Time Appointment Type Appointme nt Facility Name Dec 09, 2024 08:30 AM AMBULATORY - NONE [facility] Dec 09, 2024 09:30 AM AMBULATORY - NONE [facility] Dec 09, 2024 10:30 AM AMBULATORY - NONE [facility] Dec 09, 2024 10:45 AM AMBULATORY - SURGERY [facility] Dec 13, 2024 01:00 PM AMBULATORY - REHAB MEDICIN E [facility] Dec 16, 2024 07:00 AM AMBULATORY - NONE [facility] Dec 21, 2024 10:00 AM AMBULATORY - REHAB MEDICIN E [facility] Dec 22, 2024 11:00 AM AMBULATORY - SURGERY [facility] Dec 23, 2024 08:00 AM AMBULATORY - REHAB MEDICIN E [facility] Dec 28, 2024 01:00 PM AMBULATORY - REHAB MEDICIN E [facility] Dec 29, 2024 10:00 AM AMBULATORY - REHAB MEDICIN E [facility] Jan 02, 2025 08:30 AM AMBULATORY - REHAB MEDICIN E [facility] Jan 05, 2025 01:58 PM AMBULATORY - MEDICINE [facility] Jan 06, 2025 03:00 PM AMBULATORY - REHAB MEDICIN [facility] Jan 10, 2025 09:00 AM AMBULATORY - REHAB MEDICIN [facility] Jan 16, 2025 10:00 AM AMBULATORY - REHAB MEDICIN E [facility] Jan 18, 2025 09:00 AM AMBULATORY - REHAB MEDICIN E [facility] Jan 23, 2025 09:00 AM AMBULATORY - REHAB MEDICIN [facility] Jan 25, 2025 09:00 AM AMBULATORY - REHAB MEDICIN [facility] February 21, 2025 10:00 AM AMBULATORY - NONE [facility] Active, Pending, and Scheduled Orders This section includes a listing of several types of active, pending, and scheduled orders, including clinic medications orders, diagnostic test orders, procedure orders and consult orders; where the start date of the order is 45 days before the date of the Encounter or 45 days after the date of theEncounter. The data comes from all [place] treatment facilities. Test Date/Time Test Type Test Details Facility Name Oct 25, 2024 12:00 AM Laboratory - Chemistry Order CBC & DIFF BLOOD ONCO SP ONCE [facility] Nov 25, 2024 10:22 AM Consult Order OT OCCUPATIONAL THERAPY OUTPT VISION THERAPY Cons [employer] Choice [facility] Nov 30, 2024 12:00 AM Laboratory - Chemistry Order CBC BLOOD STAT SP ONCE [facility] Nov 30, 2024 12:00 AM Laboratory - Chemistry Order CREATININE(INCLUDES EGFR) PLASMA STAT SP ONCE [facility] Nov 30, 2024 12:00 AM Laboratory - Chemistry Order PROTHROMBIN TIME/INR PLASMA STAT SP [facility] Dec 01, 2024 11:53 AM Consult Order CSP PCAFC FUNCTIONAL ASSESSMENT INSTRUMENT OUTPT Cons [employer] [facility] Jan 03, 2025 12:08 PM Consult Order OT OCCUPATIONAL THERAPY OUTPT HOME ACCESSIBILITY Cons [employer] [facility] Jan 05, 2025 03:02 PM Consult Order ENT OUTPT Cons [employer] [facility] Lab Results: +/- 30 days of the encounter This section includes the Chemistry and Hematology Lab Results on record with [place] for the patient. Radiology Reports and Pathology Reports are provided separately, in subsequent sections. Lab Results This section contains the Chemistry/Hematology Results that were resulted 30 days before or 30 daysafter the date of the Encounter. Date/Time Source Result Type Result - Unit Interpretation Reference Range Comment Dec 09, 2024 08:34 AM [facility] CREATININE(INCLUDES EGFR) Specimen Type: PLASMA No comment entered. Ordering Provider: FORD FRANCOIS Report Released Date/Time: Dec 06, 2024 09:29 AM Reporting Lab: [facility] [id number] Performing Lab: [facility] [phone] CREATININE 0.6 mg/dL 0.5-1.0 .CREAT EGFR(CKD-EPI) >90 >60 Dec 09, 2024 08:34 AM [facility] PROTHROMBIN TIME/INR Specimen Type: PLASMA No comment entered. Ordering Provider: FORD FRANCOIS Report Released Date/Time: Dec 06, 2024 09:29 AM Reporting Lab: [facility] [id number] Performing Lab: [facility] [address] .INR 1.1 0.8-1.1 .PT 12.9 s H 9.4-12.5 Dec 09, 2024 08:34 AM [facility] CBC & DIFF Specimen Type: BLOOD Comment: Automated Differential Performed Ordering Provider: FORD FRANCOIS Report Released Date/Time: Dec 06, 2024 09:29 AM Reporting Lab: [facility] [address] Performing Lab: [facility] [phone] WBC 4.4 4.0-11.0 RBC 4.42 4.00-5.40 HGB [...] 0.0 0.0-0.1 Nov 22, 2024 09:45 AM [facility] URIC ACID Specimen Type: PLASMA No comment entered. Ordering Provider: KURT NEWELL Report Released Date/Time: Apr 26, 2024 10:33 AM Reporting Lab: [facility] [phone] Performing Lab: [facility] [address] URIC ACID 5.4 mg/dL 2.5-6.2 Nov 22, 2024 09:45 AM [facility] LD,TOTAL Specimen Type: PLASMA No comment entered. Ordering Provider: KURT NEWELL Report Released Date/Time: Apr 26, 2024 10:33 AM Reporting Lab: [facility] [phone] Performing Lab: [facility] [address] LD,TOTAL 194 U/L 125-220 Nov 22, 2024 09:45 AM [facility] COMPREHENSIVE METABOLIC PANEL+MG Specimen Type: PLASMA No comment entered. Ordering Provider: KURT NEWELL Report Released Date/Time: Apr 26, 2024 10:33 AM Reporting Lab: [facility] [phone] Performing Lab: [facility] [address] CREATININE 0.6 mg/dL 0.5-1.0 UREA NITROGEN 12 [...] >90 >60 Nov 22, 2024 09:44 AM [facility] CBC & DIFF Specimen Type: BLOOD Comment: Automated Differential Performed Ordering Provider: KURT NEWELL Report Released Date/Time: Oct 25, 2024 10:32 AM Reporting Lab: [facility] [phone] Performing Lab: [facility] [address] WBC 5.4 4.0-11.0 RBC 4.58 4.00-5.40 HGB [...] 0.0 0.0-0.1 Nov 15, 2024 12:58 PM [facility] FINGERSTICK GLUCOSE Specimen Type: BLOOD Comment: Save Result Ordering Provider: LISANDRA SEAY Report Released Date/Time: Nov 17, 2024 07:56 AM Reporting Lab: [facility] [phone] Performing Lab: [facility] [phone] FINGERSTICK GLUCOSE 87 mg/dL 70-100 Social History: Smoking Status (Most current) and Tobacco Use (All prior to encounter date) This section includes the most current, and the historical, smoking and tobacco- related health factors from the [facility] where the Encounter took place. Current Smoking Status This section includes the most current smoking, or tobacco-related health factor, from the [place] facility where the Encounter took place. Date/Time Current Smoking Status Comment Facil ity Nov 27, 2023 03:30 PM VA-TOBACCO FORMER USER [facility] Tobacco Use History This section includes a history of the smoking, or tobacco-related health factors, that were collected on or before the date of the Encounter. The data comes from the [place] facility where the Encounter took place. Date/Time Smoking Status/Tobacco Use Comment F acility Nov 27, 2023 03:30 PM VA-TOBACCO QUIT 5 TO < 15 YRS [facility] Jan 14, 2023 09:03 AM VA-TOBACCO FORMER USER [facility] Jan 14, 2023 09:03 AM VA-TOBACCO QUIT 5 TO < 15 YRS [facility] Radiology Reports: +/- 30 days of the [...] the Encounter. The data comes from all [place] treatment facilities. Date/Time Radiology Report Provider Source Dec 16, 2024 07:03 AM MRI-BRAIN (P): AWAIS PADILLA [id number] -1990 F Exm Date: DEC 16, 2024@07:03 Req Phys: STEPHEN FRANCOIS Evelyn Loc: [facility] SWITCHBOARD TROUBLESHOOTER CONSULT-A (Re Img Loc: MRI IMAGING Service: Unknown Screen: [place] [address] (Case [id number] COMPLETE) MRI BRAIN/BRAINSTEM W/O CONTRAST (MRI Detailed) CPT:21553 Reason for Study: Myelopathy Clinical History: Did the ordering provider speak with a principal consultant regarding this imaging exam?No Brain MRI without contrast Myelopathy LAST CREATININE 0.6 (11/22/24) Allergies: METOPROLOL (Jan 14, 2023) REGLAN (Jan 14, 2023) My pager number on record is: [phone]. The pager number/cell phone number above is [...] 16, 2024 Date Verified: DEC 16, 2024 Senior Enlisted Advisor E-Sig:/ES/SUJIT DENIS MD Report: MRI BRAIN/BRAINSTEM W/O [...] Primary Interpreting Staff: SUJIT DENIS MD, RADIOLOGIST (Senior Enlisted Advisor) /[facility] SUJIT DENIS [facility] Dec 09, 2024 09:[address] MYELOGRAM THORA CIC (P): AWAIS PADILLA [id number] -1990 F Exm Date: DEC 09, 2024@09:52 Req Phys: STEPHEN FRANCOIS Pat Loc: [facility] SW[facility]BOARD TROUBLESHOOTER CONSULT-A (Re Img Loc: CT IMAGING Service: Unknown Screen: [place] [address] (Case [id number] COMPLETE) CT MYELOGRAM THORACIC SPINE (CT Detailed) CPT:77935 CPT Modifiers : 59 DISTINCT PROCEDURAL SERVICE [...] PLASMA .CREAT EGFR(CKD-E >90 Ref: >=60 Allergies: ([place] only) METOPROLOL (Jan 14, 2023) REGLAN (Jan 14, 2023) Defer to radiologist for final CT protocol. User Placing Order: STEPHEN FRANCOIS - Office Phone: My pager number on record is: [phone]. The pager number/cell phone number above is NOT correct for reporting critical results, I have entered my correct number below: My correct contact # for critial results is:neurosurgery showroom sales consultant Trainees only: Enter your staff provider's info here: Per Joint Commission Standards, by signing this diagnostic imaging request the ordering provider confirms they have considered patients age and recent imaging history. Report Status: Verified Date Reported: DEC 09, 2024 Date Verified: DEC 09, 2024 Wesley E-Sig:/ES/ACRITO POLANCO MD Report: CT Thoracic Spine without [...] CARITO POLANCO MD, RADIOLOGIST ([facility]) /CARITO TOLENTINO [facility] Dec 09, 2024 08:50 AM MYELOGRAM THORACIC (P): AWAIS PADILLA [id number] -1990 F Exm Date: DEC 09, 2024@08:50 Req Phys: STEPHEN FRANCOIS Loc: [facility] NEUROSURG SWITCHBOARD TROUBLESHOOTER CONSULT-A (Re Img Loc: MAIN X-RAY Service: Unknown Screen: [place] [address] (Case [id number] COMPLETE) MYELOGRAM THORACIC VIA LUMBAR INJ(RAD Detailed) CPT:69372 Reason for Study: Eval for arachnoid web or cyst at T6 level Clinical History: myelopathy Outside hosptial Thoracic mri w wo contrast is loaded into [facility]. Please do comparison . thank you Responsible provider name and phone number to notify for critical findings if other than user placing the order and pager listed below: User placing orders pager: [phone] Neurosurgery showroom sales consultant LAST CREATININE 0.6 (11/22/24) Report Status: Verified Date Reported: DEC 09, 2024 Date Verified: DEC 09, 2024 Senior Enlisted Advisor E-Sig:/ES/CARITO POLANCO MD Report: PROCEDURE: Lumbar puncture with fluoroscopic guidance. Thoracic myelogram. History: Myelopathy. Thoracic MRI shows dorsal lesion at T6. Comparison: Outside recent thoracic MRI exam from the [facility]. Fluoro time: 0.8 minute Dose: Air [...] Primary Interpreting Staff: CARITO POLANCO MD, RADIOLOGIST (Senior Enlisted Advisor) /CARITO TOLENTINO [facility] Nov 22, 2024 07:12 PM NON [place] MRI THORACI C SPINE: AWAIS PADILLA [id number] -1990 F Exm Date: NOV 22, 2024@19:12 Req Phys: MARÍA SEAY Loc: [facility] XRAY GENERAL AM (Req'g Loc Img Loc: OUTSOURCE MRI Service: Unknown Screen: Patient answered no (Case [id number] COMPLETE) NON [place] MRI THORACIC SPINE (MRI Detailed) CPT:12510 Reason for Study: OUTSIDE STUDY Clinical History: OUTSIDE STUDY Report Status: Electronically Filed Date Reported: NOV 30, 2024 Report: This is an outside Imaging study and/or report imported for continuity of patient care. This Imaging study and/or report was not reviewed or verified by a [place] Radiologist. Impression: This is an outside Imaging study and/or report imported for continuity of patient care. This Imaging study and/or report was not reviewed or verified by a [place] Radiologist. Primary Diagnostic Code: VERIFIED BY: / *ELECTRONICALLY FILED* [facility] Nov 15, 2024 12:[address] BODY W/O CO NTRAST (P): AWAIS PADILLA [id number] -1990 F Exm Date: NOV 15, 2024@12:39 Req Phys: KURT NEWELL Loc: [facility] ONC OSIRIS (Req'g Loc) Img Loc: NUC MED Service: Unknown Screen: [place] [address] (Case [id number] COMPLETE) SKULL-THIGH PET IMAGE W/CT (NM Detailed) CPT:60837 Reason for Study: Evaluation for malignacy (Case [...] pager listed below: User placing orders pager: [phone] LAST CREATININE 0.6 (07/24/24) Report Status: Verified Date Reported: NOV 15, 2024 Date Verified: NOV 15, 2024 Senior Enlisted Advisor E-Sig:/ES/CAIN SMART MD Report: PET/CT SCAN INDICATION: [...] Staff: CAIN SMART MD, RADIOLOGY STAFF PHYSICIAN (Senior Enlisted Advisor) /CAIN CR [facility] Nov 10, 2024 10:23 AM NON [place] THORACI C SPINE: AWAIS PADILLA [id number] -1990 F Exm Date: NOV 10, 2024@10:23 Req Phys: MARÍA SEAY Loc: [facility] XRAY GENERAL AM (Req'g Loc Img Loc: OUTSOURCE MRI Service: Unknown Screen: Patient answered no (Case [id number] COMPLETE) NON [place] MRI THORACIC SPINE (MRI Detailed) CPT:82396 Reason for Study: OUTSIDE STUDY Clinical History: OUTSIDE STUDY Report Status: Electronically Filed Date Reported: NOV 30, 2024 Report: This is an outside Imaging study and/or report imported for continuity of patient care. This Imaging study and/or report was not reviewed or verified by a [place] Radiologist. Impression: This is an outside Imaging study and/or report imported for continuity of patient care. This Imaging study and/or report was not reviewed or verified by a [place] Radiologist. Primary Diagnostic Code: VERIFIED BY: / *ELECTRONICALLY FILED* [facility] Nov 10, 2024 10:03 AM NON [place] MRI CERVICA L SPINE: AWAIS PADILLA [id number] -1990 F Exm Date: NOV 10, 2024@10:03 Req Phys: MARÍA SEAY Loc: [facility] XRAY GENERAL AM (Req'g Loc Img Loc: OUTSOURCE MRI Service: Unknown Screen: Patient answered no (Case 1904 COMPLETE) NON [place] MRI CERVICAL SPINE (MRI Detailed) CPT:89438 Reason for Study: OUTSIDE STUDY Clinical History: OUTSIDE STUDY Report Status: Electronically Filed Date Reported: NOV 30, 2024 Report: This is an outside Imaging study and/or report imported for continuity of patient care. This Imaging study and/or report was not reviewed or verified by a [place] Radiologist. Impression: This is an outside Imaging study and/or report imported for continuity of patient care. This Imaging study and/or report was not reviewed or verified by a [place] Radiologist. Primary Diagnostic Code: VERIFIED BY: / *ELECTRONICALLY FILED* [facility] Nov 10, 2024 09:46 AM NON [place] MRI LUMBAR SPINE: AWAIS PADILLA [place] [id number] -1990 F Exm Date: NOV 10, 2024@09:46 Req Phys: MARÍA SEAY Loc: [facility] XRAY GENERAL AM (Req'g Loc Img Loc: OUTSOURCE MRI Service: Unknown Screen: Patient answered no (Case [id number] COMPLETE) NON [place] LUMBAR SPINE (MRI Detailed) CPT:44665 Reason for Study: OUTSIDE STUDY Clinical History: OUTSIDE STUDY Report Status: Electronically Filed Date Reported: NOV 30, 2024 Report: This is an outside Imaging study and/or report imported for continuity of patient care. This Imaging study and/or report was not reviewed or verified by a [place] Radiologist. Impression: This is an outside Imaging study and/or report imported for continuity of patient care. This Imaging study and/or report was not reviewed or verified by a [place] Radiologist. Primary Diagnostic Code: VERIFIED BY: / *ELECTRONICALLY FILED* [facility] Encounter Notes: All associated encounter notes This section contains the clinical notes associated to the Encounter. Date/Time Encounter Note(s) Provider Source Dec 07, 2024 02:39 PM ACCOUNTING OF DISC LOSURES NOTE: LOCAL TITLE: STATE PRESCRIPTION DRUG MONITORING PROGRAM STANDARD TITLE: ACCOUNTING OF DISCLOSURES NOTE DATE OF NOTE: DEC 07, 2024@14:39:57 ENTRY DATE: DEC 07, 2024@14:39:57 AUTHOR: MARÍA SEAY EXP COSIGNER: URGENCY: STATUS: COMPLETED This PDMP query was submitted by María Seay. The clinical justification for this PDMP query is to review controlled substances prescribed outside of the [facility], and any additional information that may become available, as an important component of standard clinical care, and in accordance with [facility] policy. Patient information was shared with the PDMP [place]. No prescription(s) for controlled substances outside the [facility] were found in the last 90 days. /los/ María Seay PA-C Physician Ground Operations Crew Member Signed: 12/07/2024 14:41 MARÍA SEAY [facility]
--- OUTSIDE RECORDS SUMMARY | 2025-01-11 10:10 | XMS_ITS | Encounter Summary ---
Author Name [facility] Organization [facility] [place] Address [address] [place] [address] Care Team Providers Care Barrel Endshaker Adjuster Name Role Phone CINDY ZAMORANO Primary Care Provider Unavail able Selected Encounter This section includes the information on record at [place] for the Encounter. Date/Time Encounter Type Encounter Description Reason Provider Source Dec 01, 2024 11:26 AM PH1 ASSMT&MGMT NQHP 5-10 TELEPHONE/ANCILLAR Y ICD-10-CM Z87.820 Personal history of traumatic brain injury AKOSUA SINGLETON [facility] Encounter Template Text not used by [place] Assessments - Encounter Diagnoses This section includes the primary and secondary diagnoses documented for the Encounter. Date/Time Primary/Secondary Diagnosis Diagnosis Name Provider Source Dec 01, 2024 11:26 AM PRIMARY Personal history of traumatic brain injury AKOSUA SINGLETON [facility] Plan of Treatment: Future Appointments [...] 20 appointments. The data comes from all [facility]. Appointment Date/Time Appointment Type Appointme nt Facility Name Dec 02, 2024 08:00 AM AMBULATORY - REHAB MEDICIN E [facility] Dec 09, 2024 08:30 AM AM[facility]ORY - [place]ONE [place] [facility] Dec 09, 2024 09:30 AM AM[facility]UL[facility]ORY - NONE [place] [facility] Dec 09, 2024 10:30 AM AMBUL[facility]ORY - NONE [place] [facility] Dec 09, 2024 10:45 AM AMBULATORY - SURGERY [place] [facility] Dec 13, 2024 01:00 PM AMBULATORY - REHAB MEDICIN E [facility] Dec 16, 2024 07:00 AM AMBULATORY - NONE [place] [facility] Dec 21, 2024 10:00 AM AMBULATORY - REHAB MEDICIN E [facility] Dec 22, 2024 11:00 AM AMBULATORY - SURGERY [facility] Dec 23, 2024 08:00 AM AMBULATORY - REHAB MEDICIN E [facility] Dec 28, 2024 01:00 PM AMBULATORY - REHAB MEDICIN E [facility] Dec 29, 2024 10:00 AM AMBULATORY - REHAB MEDICIN E [facility] Jan 02, 2025 08:30 AM AMBULATORY - REHAB MEDICIN E [facility] Jan 05, 2025 01:58 PM [facility] Jan 06, 2025 03:00 PM AMBULATORY - REHAB MEDICIN E [facility] Jan 10, 2025 09:00 AM AMBULATORY - REHAB MEDICIN E [facility] Jan 16, 2025 10:00 AM AMBULATORY - REHAB MEDICIN E [facility] Jan 18, 2025 09:00 AM AMBULATORY - REHAB MEDICIN E [facility] Jan 23, 2025 09:00 AM AMBULATORY - REHAB MEDICIN E [facility] Jan 25, 2025 09:00 AM AMBULATORY - REHAB MEDICIN E [facility] Active, Pending, and Scheduled Orders This section includes a listing of several types of active, pending, and scheduled orders, including clinic medications orders, diagnostic test orders, procedure orders and consult orders; where the start date of the order is 45 days before the date of the Encounter or 45 days after the date of theEncounter. The data comes from all [facility]. Test Date/Time Test Type Test Details Facility Name Oct 25, 2024 12:00 AM Laboratory - Chemistry Order CBC & DIFF BLOOD ONCO SP ONCE [facility] Nov 25, 2024 10:22 AM Consult Order OT OCCUPATIONAL THERAPY OUTPT VISION THERAPY Cons Premix Operator Concentrate's Choice [facility] Nov 30, 2024 12:00 AM Laboratory - Chemistry Order CBC BLOOD STAT SP ONCE [facility] Nov 30, 2024 12:00 AM Laboratory - Chemistry Order CREATININE(INCLUDES EGFR) PLASMA STAT SP ONCE [facility] Nov 30, 2024 12:00 AM Laboratory - Chemistry Order PROTHROMBIN TIME/INR PLASMA STAT SP [facility] Dec 01, 2024 11:53 AM Consult Order CSP PCAFC FUNCTIONAL ASSESSMENT INSTRUMENT OUTPT Cons Premix Operator Concentrate's [facility] Jan 03, 2025 12:08 PM Consult Order OT OCCUPATIONAL THERAPY OUTPT HOME ACCESSIBILITY Cons Premix Operator Concentrate's [facility] Jan 05, 2025 03:02 PM Consult Order ENT OUTPT Cons Premix Operator Concentrate's [facility] Lab Results: +/- 30 days of the encounter This section includes the Chemistry and Hematology Lab Results on record with [place] for the patient. Radiology Reports and Pathology Reports are provided separately, in subsequent sections. Lab Results This section contains the Chemistry/Hematology Results that were resulted 30 days before or 30 daysafter the date of the Encounter. Date/Time Source Result Type Result - Unit Interpretation Reference Range Comment Dec 09, 2024 08:34 AM [facility] PROTHROMBIN TIME/INR Specimen Type: PLASMA No comment entered. Ordering Provider: FORD FRANCOIS Report Released Date/Time: Dec 06, 2024 09:29 AM Reporting Lab: [facility] [id number] Performing Lab: [facility] [id number] .INR 1.1 0.8-1.1 .PT 12.9 s H 9.4-12.5 Dec 09, 2024 08:34 AM [facility] CREATININE(INCLUDES EGFR) Specimen Type: PLASMA No comment entered. Ordering Provider: FORD FRANCOIS Report Released Date/Time: Dec 06, 2024 09:29 AM Reporting Lab: [facility] [address] Performing Lab: [facility] [address] CREATININE 0.6 mg/dL 0.5-1.0 .CREAT EGFR(CKD-EPI) >90 >60 Dec 09, 2024 08:34 AM [facility] CBC & DIFF Specimen Type: BLOOD Comment: Automated Differential Performed Ordering Provider: FORD FRANCOIS Report Released Date/Time: Dec 06, 2024 09:29 AM Reporting Lab: [facility] [address] Performing Lab: [facility] [address] WBC 4.4 4.0-11.0 RBC 4.42 4.00-5.40 HGB [...] 0.0 0.0-0.1 Nov 22, 2024 09:45 AM [facility] URIC ACID Specimen Type: PLASMA No comment entered. Ordering Provider: KURT NEWELL Report Released Date/Time: Apr 26, 2024 10:33 AM Reporting Lab: [facility] [address] Performing Lab: [facility] [address] URIC ACID 5.4 mg/dL 2.5-6.2 Nov 22, 2024 09:45 AM [facility] LD,TOTAL Specimen Type: PLASMA No comment entered. Ordering Provider: KURT NEWELL Report Released Date/Time: Apr 26, 2024 10:33 AM Reporting Lab: [facility] [address] Performing Lab: [facility] [address] LD,TOTAL 194 U/L 125-220 Nov 22, 2024 09:45 AM [facility] COMPREHENSIVE METABOLIC PANEL+MG Specimen Type: PLASMA No comment entered. Ordering Provider: KURT NEWELL Report Released Date/Time: Apr 26, 2024 10:33 AM Reporting Lab: [facility] [address] Performing Lab: [facility] [address] CREATININE 0.6 mg/dL 0.5-1.0 UREA NITROGEN 12 [...] >90 >60 Nov 22, 2024 09:44 AM [facility] CBC & DIFF Specimen Type: BLOOD Comment: Automated Differential Performed Ordering Provider: KURT NEWELL Report Released Date/Time: Oct 25, 2024 10:32 AM Reporting Lab: [facility] [address] Performing Lab: [facility] [address] WBC 5.4 4.0-11.0 RBC 4.58 4.00-5.40 HGB [...] 0.0 0.0-0.1 Nov 15, 2024 12:58 PM [facility] FINGERSTICK GLUCOSE Specimen Type: BLOOD Comment: Save Result Ordering Provider: LISANDRA ZAMORANO Report Released Date/Time: Nov 17, 2024 07:56 AM Reporting Lab: [facility] [address] Performing Lab: [facility] [address] FINGERSTICK GLUCOSE 87 mg/dL 70-100 Social History: Smoking Status (Most current) and Tobacco Use (All prior to encounter date) This section includes the most current, and the historical, smoking and tobacco- related health factors from the [place] facility where the Encounter took place. Current Smoking Status This section includes the most current smoking, or tobacco-related health factor, from the [place] facility where the Encounter took place. Date/Time Current Smoking Status Comment Srini ity Nov 27, 2023 03:30 PM [place]-TOBACCO FORMER USER [facility] Tobacco Use History This section includes a history of the smoking, or tobacco-related health factors, that were collected on or before the date of the Encounter. The data comes from the [place] facility where the Encounter took place. Date/Time Smoking Status/Tobacco Use Comment F acility Nov 27, 2023 03:30 PM VA-TOBACCO QUIT 5 TO < 15 YRS [facility] Jan 14, 2023 09:03 AM VA-TOBACCO FORMER USER [facility] Jan 14, 2023 09:03 AM [place]-TOBACCO QUIT 5 TO < 15 YRS [facility] Radiology Reports: +/- 30 days [...] the Encounter. The data comes from all [place] treatment facilities. Date/Time Radiology Report Provider Source Dec 16, 2024 07:03 AM MRI-BRAIN (P): AWAIS PADILLA [id number] -1990 F Exm Date: DEC 16, 2024@07:03 Req Phys: STEPHEN FRANCOIS Loc: [facility] NEUROSURG SERVICER CONSULT-A (Re Img Loc: MRI IMAGING Service: Unknown Screen: [place] [address] (Case [id number] COMPLETE) MRI BRAIN/BRAINSTEM W/O CONTRAST (MRI Detailed) CPT:02764 Reason for Study: Myelopathy Clinical History: Did the ordering provider speak with a diet consultant regarding this imaging exam?No Brain MRI without contrast Myelopathy LAST CREATININE 0.6 (11/22/24) Allergies: METOPROLOL (Jan 14, 2023) REGLAN (Jan 14, 2023) My pager number on record is: [phone]. The pager number/cell phone number above is [...] 16, 2024 Date Verified: DEC 16, 2024 Wash Crew Person E-Sig:/ES/SUJIT DENIS MD Report: MRI BRAIN/BRAINSTEM W/O [...] Primary Interpreting Staff: SUJIT DENIS MD, RADIOLOGIST (Wash Crew Person) /[facility] SUJIT DENIS [facility] Dec 09, 2024 09:[address] MYELOGRAM THORFederico CIC (P): PADILLAAWAIS [id number] -1990 F Exm Date: DEC 09, 2024@09:52 Req Phys: STEPHEN FRANCOIS Pat Loc: [facility] NEUROSURG SERVICER CONSULT-A (Re Img Loc: CT IMAGING Service: Unknown Screen: [place] [address] (Case [id number] COMPLETE) CT MYELOGRAM THORACIC SPINE (CT Detailed) CPT:92316 CPT Modifiers : 59 DISTINCT PROCEDURAL SERVICE [...] PLASMA .CREAT EGFR(CKD-E >90 Ref: >=60 Allergies: ([place] only) METOPROLOL (Jan 14, 2023) REGLAN (Jan 14, 2023) Defer to radiologist for final CT protocol. User Placing Order: STEPHEN FRANCOIS L - Office Phone: My pager number on record is: [phone]. The pager number/cell phone number above is NOT correct for reporting critical results, I have entered my correct number below: My correct contact # for critial results is:neurosurgery aeronautics teacher Trainees only: Enter your staff provider's info here: Per Joint Commission Standards, by signing this diagnostic imaging request the ordering provider confirms they have considered patients age and recent imaging history. Report Status: Verified Date Reported: DEC 09, 2024 Date Verified: DEC 09, 2024 Wash Crew Person E-Sig:/ES/CARITO POLANCO MD Report: CT Thoracic Spine [...] Primary Interpreting Staff: CARITO POLANCO MD, RADIOLOGIST (Wash Crew Person) /CARITO TOLNETINO [facility] Dec 09, 2024 08:50 AM MYELOGRAM THORACIC (P): AWAIS PADILLA [id number] -1990 F Exm Date: DEC 09, 2024@08:50 Req Phys: STEPHEN FRANCOIS Loc: [facility] NEUROSURG SERVICER CONSULT-A (Re Img Loc: MAIN X-RAY Service: Unknown [place]: [place] [address] (Case [id number] COMPLETE) MYELOGRAM THORACIC VIA LUMBAR INJ(RAD Detailed) CPT:91254 Reason for Study: Eval for arachnoid web or cyst at T6 level Clinical History: myelopathy Outside hosptial Thoracic mri w wo contrast is loaded into [facility]. Please do comparison . thank you Responsible provider name and phone number to notify for critical findings if other than user placing the order and pager listed below: User placing orders pager: [phone] Neurosurgery aeronautics teacher LAST CREATININE 0.6 (11/22/24) Report Status: Verified Date Reported: DEC 09, 2024 Date Verified: DEC 09, 2024 Wash Crew Person E-Sig:/ES/CARITO POLANCO MD Report: PROCEDURE: Lumbar puncture with fluoroscopic guidance. Thoracic myelogram. History: Myelopathy. Thoracic MRI shows dorsal lesion at T6. Comparison: Outside recent thoracic MRI exam from the [facility]. Fluoro time: 0.8 minute Dose: Air Kerma: 3.9, mGy, DAP: 3.54, dGy.cm? PROCEDURE: The patient/medical decision-maker understood the limitations, alternatives, and risks of the procedure and requested the procedure be performed. Both iMed and oral consent were obtained. A pre-procedural Time-Out was performed per [facility] policy. The patient was prepped and [...] Primary Interpreting Staff: CARITO POLANCO MD, RADIOLOGIST (Wash Crew Person) /CARITO TOLENTINO [facility] Nov 22, 2024 07:12 PM NON [place] MRI THORACI C SPINE: AWAIS PADILLA [id number] -1990 F Exm Date: NOV 22, 2024@19:12 Req Phys: CINDY ZAMORANO Loc: [facility] XRAY GENERAL AM (Req'g Loc Img Loc: OUTSOURCE MRI Service: Unknown Screen: Patient answered no (Case [id number] COMPLETE) NON [facility] MRI THORACIC SPINE (MRI Detailed) CPT:09574 Reason for Study: OUTSIDE STUDY Clinical History: OUTSIDE STUDY Report Status: Electronically Filed Date Reported: NOV 30, 2024 Report: This is an outside Imaging study and/or report imported for continuity of patient care. This Imaging study and/or report was not reviewed or verified by a [place] Radiologist. Impression: This is an outside Imaging study and/or report imported for continuity of patient care. This Imaging study and/or report was not reviewed or verified by a [place] Radiologist. Primary Diagnostic Code: VERIFIED BY: / *ELECTRONICALLY FILED* [facility] Nov 15, 2024 12:[address] BODY W/O CO NTRAST (P): AWAIS PADILLA [id number] -1990 F Exm Date: NOV 15, 2024@12:39 Req Phys: OSIRISKURT Dawson Pat Loc: [facility] ONC OSIRIS (Req'g Loc) Img Loc: NUC MED Service: Unknown Screen: [place] [address] (Case [id number] COMPLETE) SKULL-THIGH PET IMAGE W/CT (NM Detailed) CPT:48352 Reason for Study: Evaluation for malignacy (Case [...] pager listed below: User placing orders pager: [phone] LAST CREATININE 0.6 (07/24/24) Report Status: Verified Date Reported: NOV 15, 2024 Date Verified: NOV 15, 2024 Wash Crew Person E-Sig:/ES/CAIN SMART MD Report: PET/CT SCAN INDICATION: [...] Staff: CAIN SMART MD, RADIOLOGY STAFF PHYSICIAN (Wash Crew Person) /CAIN CR [facility] Nov 10, 2024 10:23 AM NON [place] MRI THORACI C SPINE: AWAIS PADILLA [id number] -1990 F Exm Date: NOV 10, 2024@10:23 Req Phys: CINDY ZAMORANO Loc: [facility] XRAY GENERAL AM (Req'g Loc Img Loc: OUTSOURCE MRI Service: Unknown Screen: Patient answered no (Case [id number] COMPLETE) NON [facility] MRI THORACIC SPINE (MRI Detailed) CPT:06934 Reason for Study: OUTSIDE STUDY Clinical History: OUTSIDE STUDY Report Status: Electronically Filed Date Reported: NOV 30, 2024 Report: This is an outside Imaging study and/or report imported for continuity of patient care. This Imaging study and/or report was not reviewed or verified by a [place] Radiologist. Impression: This is an outside Imaging study and/or report imported for continuity of patient care. This Imaging study and/or report was not reviewed or verified by a [place] Radiologist. Primary Diagnostic Code: VERIFIED BY: / *ELECTRONICALLY FILED* [facility] Nov 10, 2024 10:03 AM NON [place] MRI CERVICA L SPINE: AWAIS PADILLA [id number] -1990 F Exm Date: NOV 10, 2024@10:03 Req Phys: CINDY ZAMORANO Loc: [facility] XRAY GENERAL AM (Req'g Loc Img Loc: OUTSOURCE MRI Service: Unknown Screen: Patient answered no (Case [id number] COMPLETE) NON [place] MRI CERVICAL SPINE (MRI Detailed) CPT:83114 Reason for Study: OUTSIDE STUDY Clinical History: OUTSIDE STUDY Report Status: Electronically Filed Date Reported: NOV 30, 2024 Report: This is an outside Imaging study and/or report imported for continuity of patient care. This Imaging study and/or report was not reviewed or verified by a [place] Radiologist. Impression: This is an outside Imaging study and/or report imported for continuity of patient care. This Imaging study and/or report was not reviewed or verified by a [place] Radiologist. Primary Diagnostic Code: VERIFIED BY: / *ELECTRONICALLY FILED* [facility] Nov 10, 2024 09:46 AM NON [place] MRI LUMBAR SPINE: AWAIS PADILLA [id number] -1990 F Exm Date: NOV 10, 2024@09:46 Req Phys: CINDY ZAMORANO Loc: [facility] XRAY GENERAL AM (Req'g Loc Img Loc: OUTSOURCE MRI Service: Unknown Screen: Patient answered no (Case [id number] COMPLETE) NON [place] MRI LUMBAR SPINE (MRI Detailed) CPT:55255 Reason for Study: OUTSIDE STUDY Clinical History: OUTSIDE STUDY Report Status: Electronically Filed Date Reported: NOV 30, 2024 Report: This is an outside Imaging study and/or report imported for continuity of patient care. This Imaging study and/or report was not reviewed or verified by a [place] Radiologist. Impression: This is an outside Imaging study and/or report imported for continuity of patient care. This Imaging study and/or report was not reviewed or verified by a [place] Radiologist. Primary Diagnostic Code: VERIFIED BY: / *ELECTRONICALLY FILED* [facility] Encounter Notes: All associated encounter notes This section contains the clinical notes associated to the Encounter. Date/Time Encounter Note(s) Provider Source Dec 01, 2024 11:26 AM CAREGIVER CERTIFIC ATE: LOCAL TITLE: CSP PCAFC REASSESSMENT REVIEW STANDARD TITLE: CAREGIVER CERTIFICATE DATE OF NOTE: DEC 01, 2024@11:26 ENTRY DATE: DEC 01, 2024@11:26:51 AUTHOR: AKOSUA SINGLETON COSIGNER: URGENCY: STATUS: COMPLETED CSP PCAFC REASSESSMENT REVIEW Has ADDENDA Program of Comprehensive Assistance for Family Caregivers (PCAFC) Reassessment The Local Caregiver Support Program (CSP) Staff contact [place] and Family Caregiver(s) to discuss the program reassessment process and complete the reassessment review. A brief overview of the eligibility requirements, reassessment process and appeal rights are reviewed with the and Family Caregiver(s). Date of visit: Nov Identified the using full name and the following other villarreal identifier(s): Full name: AWAIS PADILLA Full SSN: [id number] Date of : Apr The reassessment was conducted using the telephone. Individuals providing input include: Primary Family Caregiver Information: address: [address] [place], [place] [id number] phone #: [place] Facility where [place] receives care: [facility] The does not live in a foster home, assisted living, or other institutional location. The does not have a legal guardian\conservator. The [place] does not have an Advance Directive. Were Advance Directives discussed/reviewed with [place]? Yes Details: AD discussed - Blank AD had been mailed to 's AOF 12/26/22 The does not have a [place] fiduciary. Service Information: Dates of service: 9312-6477 Branch of service: [place] connected [place] service connected disabilities: DS - Disabilities Eligibility: SERVICE CONNECTED 50% to 100% VERIFIED Total S/C %: 100 LIMITED FLEXION OF KNEE 10% S/C FACIAL SCARS 0% S/C LABYRINTHITIS 30% S/C TINNITUS 10% S/C POST-TRAUMATIC STRESS DISORDER 100% S/C KNEE CONDITION 10% S/C SUPERFICIAL SCARS 10% S/C Requirements: 1) The individual is either a [place] or a member of the Armed Forces undergoing a medical discharge from the Armed Forces: Yes 2) The individual has a serious injury incurred or aggravated 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 line 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 , 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, 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: Yes (* Serious injury means any service-connected disability that (1) is rated at 70 percent or more by VA, or (2) is combined with any other service-connected disability or disabilities, and a combined rating of 70 percent or more is assigned by VA.) 3) The individual receives care at home or will do so if VA designates a Family Caregiver: Yes 4) The individual receives ongoing care from a primary care team or will do so if VA designates a Family Caregiver: Yes 5) The individual resides in a State, defined as each of the several States, Territories, and possessions of the [facility], the [facility], and the [facility]: Yes Family Caregiver Requirements: Primary Family Caregiver Name: Paulo Bateman [place] Form [id number] (HA[place]LEY) is on file for the Primary Family Caregiver. Date of Release of Information: Jan The Primary Family Caregiver is 18 years of age or older. The Primary Family Caregiver is a family member or will live full time babysitter with the if designated as a Family Caregiver. Relationship to [place]: Spouse Address of Primary Family Caregiver's Residence: [address] [place] [address] Plan: Local [facility] staff will coordinate the following next steps: Coordinate the necessary assessment(s) Coordinate the Family Caregiver assessment(s) Coordinate referral to the Centralized Eligibility and Appeals Team (CEAT) for review Additional Information: [facility] received call from the Primary Caregiver who stated that the Vet has increased care needs and they are requesting review for PCAFC Level increase. Reviewed their previous request for PCAFC Level review and determination of continued eligibility at level 1. The caregiver also stated that the Vet will likely have back surgery and has requested a home evaluation for safety considerations. Discussed contacting the Vets PCP for support. Call duration 7 minutes. [facility] Paulo Padilla [phone] /es/ AKOSUA SINGLETON RN REGISTERED NURSE Signed: 12/01/2024 11:43 Receipt Acknowledged By: 12/02/2024 10:22 /es/ ANA DELGADILLO Advanced Research Associate Molecular Biology 12/14/2024 ADDENDUM STATUS: COMPLETED Program of Comprehensive Assistance for Family Caregiver (PCAFC) Assessment initiated; [employer] Display Builder sent secure message to the Vet's PCP and PACT Ruby On Rails Consultant for PCP collaboration. /los/ KALYANI FARFAN OCCUPATIONAL THERAPIST Signed: 12/14/2024 08:09 AKOSUA SINGLETON [facility]
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
--- OUTSIDE RECORDS SUMMARY | 2025-01-11 10:10 | XMS_ITS | Continuity of Care Document ---
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 Report Released Date/Time: Oct 25, 2024 10:32 AM Reporting Lab: [facility] [address] Performing Lab: [facility] [address] [place] [facility] CBC & DIFF HEMOGLOBIN [MASS/VOLU ME] IN BLOOD 13.6 g/dL 11.5 - 16.0 11/22 Specimen Type: BLOOD Comment: Automated Differentia l Performed Ordering Provider: SHANON NEWELL Report Released Date/Time: Oct 25, 2024 10:32 AM Reporting Lab: [facility] [address] Performing Lab: [facility] [address] [place] [facility] CBC & DIFF HEMATOCRIT [VOLUME FRACTION] OF BLOOD BY AUTOMATED COUNT 39.9 34.5 - 48.0 11/22 Specimen Type: BLOOD Comment: Automated Differentia l Performed Ordering Provider: SHANON NEWELL Report Released Date/Time: Oct 25, 2024 10:32 AM Reporting Lab: [facility] [address] Performing Lab: [facility] [address] [place] [facility] CBC & DIFF MCV [ENTITIC VOLUME] BY AUTOMATED COUNT 87.1 fL 80.0 - 100.0 11/22 Specimen Type: BLOOD Comment: Automated Differentia l Performed Ordering Provider: SHANON NEWELL Report Released Date/Time: Oct 25, 2024 10:32 AM Reporting Lab: [facility] [address] Performing Lab: [facility] [address] [place] [facility] CBC & DIFF MCH [ENTITIC MASS] BY AUTOMATED COUNT 29.7 pg 27.0 - 33.0 11/22 Specimen Type: BLOOD Comment: Automated Differentia l Performed Ordering Provider: SHANON NEWELL Report Released Date/Time: Oct 25, 2024 10:32 AM Reporting Lab: [facility] [address] Performing Lab: [facility] [address] [place] [facility] CBC & DIFF MCHC [MASS/VOLU ME] BY AUTOMATED COUNT 34.1 g/dL 32.0 - 37.5 11/22 Specimen Type: BLOOD Comment: Automated Differentia l Performed Ordering Provider: SHANON NEWELL Report Released Date/Time: Oct 25, 2024 10:32 AM Reporting Lab: [facility] [address] Performing Lab: [facility] [address] [place] [facility] CBC & DIFF PLATELETS [#/VOLUME] IN BLOOD BY AUTOMATED COUNT 190 150 - 400 11/22 Specimen Type: BLOOD Comment: Automated Differentia l Performed Ordering Provider: SHANON NEWELL Report Released Date/Time: Oct 25, 2024 10:32 AM Reporting Lab: [facility] [address] Performing Lab: [facility] [address] [place] [facility] CBC & DIFF PLATELET MEAN VOLUME [ENTITIC VOLUME] IN BLOOD BY AUTOMATED COUNT 11.7 fL 9.1 - 13.0 11/22 Specimen Type: BLOOD Comment: Automated Differentia l Performed Ordering Provider: SHANON NEWELL Report Released Date/Time: Oct 25, 2024 10:32 AM Reporting Lab: [facility] [address] Performing Lab: [facility] [address] [place] [facility] CBC & DIFF NEUTROPHIL S/100 LEUKOCYTES IN BLOOD BY MANUAL COUNT 61.8 40.0 - 80.0 11/22 Specimen Type: BLOOD Comment: Automated Differentia l Performed Ordering Provider: SHANON NEWELL Report Released Date/Time: Oct 25, 2024 10:32 AM Reporting Lab: [facility] [address] Performing Lab: [facility] [address] [place] [facility] CBC & DIFF LYMPHOCYTE S/100 LEUKOCYTES IN BLOOD BY MANUAL COUNT 31.0 15.0 - 45.0 11/22 Specimen Type: BLOOD Comment: Automated Differentia l Performed Ordering Provider: SHANON NEWELL Report Released Date/Time: Oct 25, 2024 10:32 AM Reporting Lab: [facility] [address] Performing Lab: [facility] [address] [place] [facility] CBC & DIFF MONOCYTES/ 100 LEUKOCYTES IN BLOOD BY AUTOMATED COUNT 4.5 2.0 - 12.0 11/22 Specimen Type: BLOOD Comment: Automated Differentia l Performed Ordering Provider: SHANON NEWELL Report Released Date/Time: Oct 25, 2024 10:32 AM Reporting Lab: [facility] [address] Performing Lab: [facility] [address] [place] [facility] CBC & DIFF EOSINOPHIL S/100 LEUKOCYTES IN BLOOD BY AUTOMATED COUNT 2.1 0.0 - 6.0 11/22 Specimen Type: BLOOD Comment: Automated Differentia l Performed Ordering Provider: SHANON NEWELL Report Released Date/Time: Oct 25, 2024 10:32 AM Reporting Lab: [facility] [address] Performing Lab: [facility] [address] [place] [facility] CBC & DIFF BASOPHILS/ 100 LEUKOCYTES IN BLOOD BY MANUAL COUNT 0.4 0.0 - 2.0 11/22 Specimen Type: BLOOD Comment: Automated Differentia l Performed Ordering Provider: SHANON NEWELL Report Released Date/Time: Oct 25, 2024 10:32 AM Reporting Lab: [facility] [address] Performing Lab: [facility] [address] [place] [facility] CBC & DIFF ERYTHROCYT E DISTRIBUTI ON WIDTH [RATIO] BY AUTOMATED COUNT 11.6 11.5 - 14.5 11/22 Specimen Type: BLOOD Comment: Automated Differentia l Performed Ordering Provider: SHANON NEWELL Report Released Date/Time: Oct 25, 2024 10:32 AM Reporting Lab: [facility] [address] Performing Lab: [facility] [address] [place] [facility] CBC & DIFF LYMPHOCYTE S [#/VOLUME] IN BLOOD BY AUTOMATED COUNT 1.7 1.0 - 4.0 11/22 Specimen Type: BLOOD Comment: Automated Differentia l Performed Ordering Provider: SHANON NEWELL Report Released Date/Time: Oct 25, 2024 10:32 AM Reporting Lab: [facility] [address] Performing Lab: [facility] [address] [place] [facility] CBC & DIFF MONOCYTES [#/VOLUME] IN BLOOD BY AUTOMATED COUNT 0.2 0.1 - 1.0 11/22 Specimen Type: BLOOD Comment: Automated Differentia l Performed Ordering Provider: SHANON NEWELL Report Released Date/Time: Oct 25, 2024 10:32 AM Reporting Lab: [facility] [address] Performing Lab: [facility] [address] [place] [facility] CBC & DIFF NEUTROPHIL S [#/VOLUME] IN BLOOD BY AUTOMATED COUNT 3.3 2.0 - 7.7 11/22 Specimen Type: BLOOD Comment: Automated Differentia l Performed Ordering Provider: SHANON NEWELL Report Released Date/Time: Oct 25, 2024 10:32 AM Reporting Lab: [facility] [address] Performing Lab: [facility] [address] [place] [facility] CBC & DIFF EOSINOPHIL S [#/VOLUME] IN BLOOD BY AUTOMATED COUNT 0.1 0.0 - 0.5 11/22 Specimen Type: BLOOD Comment: Automated Differentia l Performed Ordering Provider: SHANON NEWELL Report Released Date/Time: Oct 25, 2024 10:32 AM Reporting Lab: [facility] [address] Performing Lab: [facility] [address] [place] [facility] CBC & DIFF BASOPHILS [#/VOLUME] IN BLOOD BY AUTOMATED COUNT 0.0 0.0 - 0.2 11/22 Specimen Type: BLOOD Comment: Automated Differentia l Performed Ordering Provider: SHANON NEWELL Report Released Date/Time: Oct 25, 2024 10:32 AM Reporting Lab: [facility] [address] Performing Lab: [facility] [address] [place] [facility] CBC & DIFF IG(META,MY ELISE,PRO) 0.2 11/22 Specimen Type: BLOOD Comment: Automated Differentia l Performed Ordering Provider: SHANON NEWELL Report Released Date/Time: Oct 25, 2024 10:32 AM Reporting Lab: [facility] [address] Performing Lab: [facility] [address] [place] [facility] CBC & DIFF IMMATURE GRANULOCYT ES [PRESENCE] IN BLOOD BY AUTOMATED COUNT 0.0 0.0 - 0.1 11/22 Specimen Type: BLOOD Comment: Automated Differentia l Performed Ordering Provider: SHANON NEWELL Report Released Date/Time: Oct 25, 2024 10:32 AM Reporting Lab: [facility] [address] Performing Lab: [facility] [address] [place] [facility] FINGERST ICK GLUCOSE GLUCOSE [MASS/VOLU ME] IN CAPILLARY BLOOD 87 mg/dL 70 - 100 11/15 Specimen Type: BLOOD Comment: Save Result Ordering Provider: JACQUELINE ZAMORANO Report Released Date/Time: Nov 17, 2024 07:56 AM Reporting Lab: [facility] [address] Performing Lab: [facility] [address] [place] [facility] COVID-19 AND FLU/RSV DIAG PANEL(CE PHEID) SARS-COV-2 (COVID-19) RNA [PRESENCE] IN RESPIRATOR Y SYSTEM SPECIMEN BY ALYSHA WITH PROBE DETECTION Not Detected 08/23 Specimen Type: NASOPHARYNG EAL Comment: Cepheid GeneXpert (618) Ordering Provider: KINZA CHAMBERLAIN Report Released Date/Time: Aug 23, 2024 03:43 PM Reporting Lab: [facility] [address] Performing Lab: [facility] [address] [place] [facility] COVID-19 AND FLU/RSV DIAG PANEL(CE PHEID) INFLUENZA VIRUS A RNA [PRESENCE] IN UPPER RESPIRATOR Y SPECIMEN BY ALYSHA WITH PROBE DETECTION Not Detected 08/23 Specimen Type: NASOPHARYNG EAL Comment: CepPSI Systemsid GeneXpert (618) Ordering Provider: KINZA CHAMBERLAIN AEL R Report Released Date/Time: Aug 23, 2024 03:43 PM Reporting Lab: [facility] [address] Performing Lab: [facility] [address] [facility]-19 AND FLU/RSV DIAG PANEL(CE PHEID) INFLUENZA VIRUS B RNA [PRESENCE] IN UPPER RESPIRATOR Y SPECIMEN BY ALYSHA WITH PROBE DETECTION Not Detected 08/23 Specimen Type: NASOPHARYNG EAL Comment: CepPSI Systemsid GeneXpert (618) Ordering Provider: KINZA CHAMBERLAIN R Report Released Date/Time: Aug 23, 2024 03:43 PM Reporting Lab: [facility] [address] Performing Lab: [facility] [address] [facility] COVID-19 AND FLU/RSV DIAG PANEL(CE PHEID) RESPIRATOR Y SYNCYTIAL VIRUS RNA [PRESENCE] IN UPPER RESPIRATOR Y SPECIMEN BY ALYSHA WITH PROBE DETECTION Not Detected 08/23 Specimen Type: NASOPHARYNG EAL Comment: Cepheid GeneXpert (618) Ordering Provider: KINZA CHAMBERLAIN R Report Released Date/Time: Aug 23, 2024 03:43 PM Reporting Lab: [facility] [address] Performing Lab: [facility] [address] [facility] HCG, QUAL CHORIOGONA DOTROPIN.B ETA SUBUNIT ( TEST) [PRESENCE] IN URINE NEGATIVE -neg- 08/23 Specimen Type: URINE Comment: Cepheid GeneXpert (618) Ordering Provider: KINZA CHAMBERLAIN R Report Released Date/Time: Aug 23, 2024 03:47 PM Reporting Lab: [facility] [address] Performing Lab: [facility] [address] [facility] Vital Signs Combined list of inpatient and outpatient Vital Signs from Department of Defense and Veterans Affairs, ranging from 12 months to all on record, depending upon the facility. Vital Sign Value Date Comments Source SYSTOLIC BLOOD PRESSURE 149 01/05/2025 14:30:00 [place] DIASTOLIC BLOOD PRESSURE 103 01/05/2025 14:30:00 [facility] PULSE OXIMETRY 98 01/05/2025 14:30:00 [facility] TEMPERATURE 98.4 01/05/2025 14:30:00 [facility] PULSE 93 01/05/2025 14:30:00 [facility] SYSTOLIC BLOOD PRESSURE 124 12/13/2024 13:03:54 [facility] DIASTOLIC BLOOD PRESSURE 85 12/13/2024 13:03:54 [facility] PULSE OXIMETRY 97 12/13/2024 13:03:54 [facility] PAIN 7 12/13/2024 13:03:54 [facility] PULSE 77 12/13/2024 13:03:54 [facility] RESPIRATION 18 12/13/2024 13:03:54 [facility] SYSTOLIC BLOOD PRESSURE 117 12/09/2024 10:22:00 [facility] DIASTOLIC BLOOD PRESSURE 80 12/09/2024 10:22:00 [facility] PULSE OXIMETRY 98 12/09/2024 10:22:00 [facility] TEMPERATURE 98.5 12/09/2024 10:22:00 [facility] PULSE 66 12/09/2024 10:22:00 [facility] SYSTOLIC BLOOD PRESSURE 124 12/02/2024 08:04:07 [facility] DIASTOLIC BLOOD PRESSURE 82 12/02/2024 08:04:07 [facility] PULSE OXIMETRY 95 12/02/2024 08:04:07 [facility] PAIN 5 12/02/2024 08:04:07 [facility] TEMPERATURE 98.6 12/02/2024 08:04:07 [facility] PULSE 86 12/02/2024 08:04:07 [facility] RESPIRATION 16 12/02/2024 08:04:07 [facility] SYSTOLIC BLOOD PRESSURE 136 11/26/2024 09:32:00 [facility] DIASTOLIC BLOOD PRESSURE 91 11/26/2024 09:32:00 [facility] PULSE OXIMETRY 98 11/26/2024 09:32:00 [facility] PAIN 7 11/26/2024 09:32:00 [facility] PULSE 73 11/26/2024 09:32:00 [facility] RESPIRATION 16 11/26/2024 09:32:00 [place] Encounters Combined list of: 1) Encounters from Department of Veterans Affairs facilities going backup to the last 18 months, not all [place] inpatient encounters are included; 2) Encounters from the Department of [facility] facilities going backup to 280 months. Location Location Details Encounter Type Encounter Number Reason For Visit Attending Provider ADM Date DC Date Status Disposition Source [place] [facility] Outpatient Encounter [id number] [facility] [place] [facility] [place] [facility] [place]patient Encounter [id number] 07[place] [facility] [place] [facility] Outpatient Encounter [id number] 07/16 [facility] [place] [facility] PSYCH DIAGNOSTIC EVALUATION [id number] Diagnos is: ICD-10- CM 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 RENETTA TRINIDAD 07/20 [facility] [place] [facility] Outpatient Encounter [id number] 07/21 [facility] [place] [facility] Outpatient Encounter [id number] 07/22 [facility] [place] [facility] Outpatient Encounter [id number] RENETTA TRINIDAD 07/22 [facility] [place] [facility] Outpatient Encounter [id number] 07/28 [facility] [place] [facility] Outpatient Encounter [id number] 07/28 [facility] [place] [facility] Outpatient Encounter [id number] 08/10 [facility] [place] [facility] Outpatient Encounter [id number] 08/18 [facility] [place] [facility] Outpatient Encounter [id number] 09/04 [facility] OT EVAL LOW COMPLEX 30 MIN [id number] Diagnos is: ICD-10- CM 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 ST JUNAID WHEELER 09/09 [facility] [place] [facility] Outpatient Encounter [id number] 09/18 [facility] [place] [facility] Outpatient Encounter [id number] 09/23 [facility] [place] [facility] Outpatient Encounter [id number] OLAYINKA HENRIQUEZ RA 09/30 [facility] [place] [facility] Outpatient Encounter [id number] Elaine OCASIO 09/30 [facility] Outpatient Encounter [id number] VEENA SINGLETON 10/15 [facility] OFFICE O/P EST HI 40 MIN [id number] Diagnos is: ICD-10- CM F39 Unspeci fied mood [affect margaux] disorde r Elaine OCASIO 10/26 [facility] [place] [facility] Outpatient Encounter [id number] 10/30 [facility] OFFICE O/P NEW HI 60 MIN [id number] Diagnos is: ICD-10- CM 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 Eunice MOODY 11/06 [facility] EMERGENCY DEPT VISIT MOD MDM [id number] Diagnos is: ICD-10- CM R53.82 Chronic fatigue , 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 IBRAHIMA FOFANA 11/08 [facility] [place] [facility] HC PRO PHONE CALL 21-30 MIN [id number] Diagnos is: ICD-10- CM F39 Unspeci fied mood [affect margaux] disorde riley MARTINEZ,AIL EE E 11/11 [facility] [place] [facility] OFFICE O/P EST HI 40 MIN [id number] Diagnos is: ICD-10- CM R51.9 Headach e, 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 KEEGANEDIE,H TWAN PAL 11/11 [facility] Outpatient Encounter [id number] 11/11 [facility] OFF/OP EST MAY X REQ PHY/QHP [id number] Diagnos is: ICD-10- CM 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, 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 TRUDI FITZGERALD 11/12 [facility] [place] Outpatient Encounter [id number] 11/19 [facility] Outpatient Encounter [id number] 11/19 [facility] Outpatient Encounter [id number] 11/26 [facility] OFFICE O/P EST MOD 30 MIN [id number] Diagnos is: ICD-10- CM 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 KEEGANEDIE,H TWAN PAL 11/27 [facility] [place] [facility] Outpatient Encounter [id number] 11/28 [facility] [facility] Outpatient Encounter [id number] 12/04 [facility] OFFICE O/P NEW LOW 30 MIN [id number] Diagnos is: ICD-10- CM H52.13 Myopia, bilater al REMINGTON DAWSONIA M 12/08 [facility] [facility] Outpatient Encounter [id number] RAPHAEL PIZANO 12/30 [place] [employer] OFFICE O/P EST HI 40 MIN 00315-161 [id number] Diagnos is: ICD-10- CM 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 EUGENIA Moore 12/31 [facility] Outpatient Encounter [id number] 12/31 [facility] SENSORY INTEGRATIO N [id number] [id number] Diagnos is: ICD-10- CM H53.71 Glare sensiti JEAN PAUL Collins 01/06 [facility] SELF CARE MNGMENT TRAINING [id number] Diagnos is: ICD-10- CM H55.81 Deficie nt saccadi c eye movemen TRUDI Beckett 01/07 [facility] Outpatient Encounter [id number] 01/12 [place] [facility] SENSORY INTEGRATIO N [id number] Diagnos is: ICD-10- CM H53.71 Glare sensiti JEAN PAUL Collins 01/14 [facility] Outpatient Encounter [id number] 01/14 [facility] EMERGENCY DEPT VISIT LOW [facility] [id number] Diagnos is: ICD-10- CM R10.12 Left upper quadran t pain Riley FERNANDEZ 01/18 [facility] Outpatient Encounter [id number] BERKOWITZGABRIELA RAY GWENDOLYN Savannah 01/20 [facility] PSYCH DIAGNOSTIC EVALUATION [id number] Diagnos is: ICD-10- CM Z65.8 Oth problem s related to psychos ocial circums tanjudie ESCOBARSILVINOBHAGATUvaldo GRIMM 01/20 [facility] OFFICE O/P NEW HI 60 MIN [id number] Diagnos is: ICD-10- CM D61.818 Other pancyto penia SCARIA,FILI RGE S 01/20 [facility] EMERGENCY DEPT VISIT MOD MDM [id number] Diagnos is: ICD-10- CM R10.10 Upper abdomin al pain, 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 Xiomy STEIN 01/22 [facility] Outpatient Encounter [id number] 01/26 [facility] OFFICE O/P EST HI 40 MIN [id number] Diagnos is: ICD-10- CM D61.818 Other pancyto penia SCARIA,FILI RGE S 01/27 [facility] SELF CARE MNGMENT TRAINING [id number] Diagnos is: ICD-10- CM H55.81 Deficie nt saccadi c eye movemen TRUDI Beckett 01/28 [facility] CASE MANAGEMENT [id number] Diagnos is: ICD-10- CM Z65.8 Oth problem s related to psychos ocial circums tances FERNANDEZ HENRIQUEZ EA 02/01 [facility] OFFICE O/P EST HI 40 MIN [id number] [id number] Diagnos is: ICD-10- CM 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 NUGENTJOHN FRANCE L 02/02 [facility] [place] [facility] Outpatient Encounter [id number] BERKOWITZGABRIELA 02/02 [facility] [place] [facility] EMERGENCY DEPT VISIT MOD MDM [id number] [id number] Diagnos is: ICD-10- CM B34.9 Viral infecti on, unspeci THOMAS Hernandez 02/06 [facility] [place] [facility] Outpatient Encounter [id number] 02/09 [place] [facility] [place] [facility] Outpatient Encounter [id number] 02/16 [facility] [place] [facility] SELF CARE MNGMENT TRAINING [id number] [id number] Diagnos is: ICD-10- CM R51.9 Headach e, unspeci DAMARIS Jackson 02/18 [facility] [place] [facility] OFFICE O/P EST HI 40 MIN [id number] [id number] Diagnos is: ICD-10- CM D61.818 Other pancyto penia SCARIA,FILI RGE S 02/22 [facility] [place] [facility] Outpatient Encounter [id number] 02/23 [place] [facility] [place] [facility] Outpatient Encounter [id number] 02/23 [facility] [place] [facility] Outpatient Encounter [id number] [id number] 02/25 [place] [facility] [place] [facility] Outpatient Encounter [id number] [id number] 02/25 [facility] [place] [facility] Outpatient Encounter [id number] [id number] 02/28 [place] [facility] [place] [facility] Outpatient Encounter [id number] [id number] 03/03 [facility] [place] [facility] Outpatient Encounter [id number] 03/03 [facility] Outpatient Encounter [id number] SYSTEM,CIS -ARK 03/10 [facility] EMERGENCY DEPT VISIT MOD MDM [id number] [id number] Diagnos is: ICD-10- CM R10.10 Upper abdomin al pain, 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 GAIL SOW 03/10 [facility] Outpatient Encounter [id number] 03/17 [facility] Outpatient Encounter [id number] JOHN NUGENT 03/18 [facility] NEUROMUSCU LAR REEDUCATIO N 86668-4.61 [id number] Diagnos is: ICD-10- CM 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 DAMARIS IBANEZ 03/22 [facility] EMERGENCY DEPT VISIT LOW MDM [id number] [id number] Diagnos is: ICD-10- CM R51.9 Headach e, 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 RITA LYNN A 03/22 [facility] Outpatient Encounter [id number] 03/22 [facility] OFFICE O/P EST HI 40 MIN [id number] [id number] Diagnos is: ICD-10- CM R51.9 Headach e, 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 JOHN NUGENT 03/22 [facility] Outpatient Encounter [id number] 03/30 [facility] Outpatient Encounter [id number] JOHN NUGENT 04/05 [facility] Outpatient Encounter [id number] 04/06 [place] [facility] [place] [facility] Outpatient Encounter [id number] Eunice MOODY 04/08 [place] [facility] [place] [facility] NEUROMUSCU LAR REEDUCATIO N 72529-561 [id number] Diagnos is: ICD-10- CM R51.9 Headach e, 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 CHRISTIANO STEEN 04/11 [place] [facility] [place] [facility] Outpatient Encounter [id number] 04/20 [place] [facility] [place] [facility] OFFICE O/P EST HI 40 MIN [id number] [id number] Diagnos is: ICD-10- CM R16.1 Splenom egaly, not elsewhe re classif ied SCARIA,FILI RGE S 04/26 [place] [facility] [place] [facility] Outpatient Encounter [id number] RA LETY RIOS 04/27 [place] [facility] MANUAL THERAPY 1/ [facility] [id number] [id number] Diagnos is: ICD-10- CM R51.9 Headach e, 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 DAMARIS IBANEZ 04/28 [place] [facility] [place] [facility] Outpatient Encounter [id number] [id number] 04/29 [place] [facility] [place] [facility] Outpatient Encounter [id number] 04/29 [place] [facility] [place] [facility] Outpatient [facility]counter [id number] [id number] 04/29 [facility] OFF/OP CONSLTJ NEW/EST HI 55 [id number] [id number] Diagnos is: ICD-10- CM R59.1 General ized enlarge d lymph nodes JEFFERY ANGUIANO 05/03 [facility] OFFICE O/P EST HI 40 MIN [id number] [id number] Diagnos is: ICD-10- CM R51.9 Headach e, 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 Eunice MOODY 05/04 [facility] [place] [facility] Outpatient Encounter [id number] [id number] 05/09 [place] [facility] [place] [facility] Outpatient Encounter [id number] 05/13 [facility] NEUROMUSCU LAR REEDUCATIO N 09647-6.61 [id number] Diagnos is: ICD-10- CM 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 DAMARIS IBANEZ 05/17 [facility] Outpatient Encounter [id number] 05/18 [facility] EMERGENCY DEPT VISIT SF MDM [id number] [id number] Diagnos is: ICD-10- CM H69.83 Other specifi ed disorde rs of Eustach tio tube, bilater al NESS,SYLVI A O 05/19 [facility] Outpatient Encounter [id number] 05/31 [facility] Outpatient Encounter [id number] [id number] 06/08 [facility] [place] [facility] Outpatient Encounter [id number] [id number] 06/10 [facility] [place] [facility] Outpatient Encounter [id number] [id number] 06/13 [facility] [place] [facility] Outpatient Encounter [id number] 06/22 [facility] CASE MANAGEMENT [id number] Diagnos is: ICD-10- CM 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 VEENA SINGLETON 06/22 [facility] [place] [facility] Outpatient Encounter [id number] [id number] ROD GONZALES 06/23 [facility] OFFICE O/P EST MOD 30 MIN [id number] [id number] Diagnos is: ICD-10- CM 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 EUGENIA Moore A 07/01 [facility] [place] [facility] Outpatient Encounter [id number] 07/05 [facility] [place] [facility] Outpatient Encounter [id number] [id number] 07/13 [facility] [place] [facility] Outpatient Encounter [id number] [id number] ROD GONZALES 07/13 [facility] Outpatient Encounter [id number] [id number] 07/15 [facility] 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 [id number] [id number] Diagnos is: ICD-10- CM G47.9 Sleep disorde r, 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 OLAYINKA WALSH M 07/22 [facility] [place] [facility] Outpatient Encounter [id number] SYSTEM,CIS -ARK 07/24 [facility] EMERGENCY DEPT VISIT MOD MDM [id number] [id number] Diagnos is: ICD-10- CM R10.10 Upper abdomin al pain, 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 SHANE,LES LIE A 07/24 [facility] [place] [facility] Outpatient Encounter [id number] [id number] 07/25 [facility] [place] [facility] Outpatient Encounter [id number] [id number] 07/28 [facility] [place] [facility] Outpatient Encounter [id number] [id number] 08/01 [facility] [place] [facility] OFFICE O/P EST HI 40 MIN [id number] Diagnos is: ICD-10- CM 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, 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 side JOHN NUGENT L 08/02 [place] [facility] [place] [facility] Outpatient Encounter [id number] JOHN NUGENT L 08/02 [facility] [place] [facility] Outpatient [facility]counter [id number] 08/03 [facility] 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 [id number] Diagnos is: ICD-10- CM G47.30 Sleep apnea, 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 Zeyad ATKINS 08/04 [facility] [place] [facility] OFFICE O/P EST HI 40 MIN [id number] [id number] Diagnos is: ICD-10- CM R51.9 Headach e, 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 Eunice MOODY 08/16 [facility] [place] [facility] Outpatient Encounter [id number] 08/22 [facility] EMERGENCY DEPT VISIT MOD MDM [id number] Diagnos is: ICD-10- CM R30.0 Dysuria IBRAHIMA CHAMBERLAIN 08/23 [facility] [place] [facility] Outpatient Encounter [id number] 08/31 [facility] [place] [facility] Outpatient Encounter [id number] [id number] 09/02 [facility] [place] [facility] Outpatient Encounter [id number] 09/12 [facility] CASE MANAGEMENT [id number] Diagnos is: ICD-10- CM Z87.820 Persona maria del rosario history of traumat ic brain injury VEENA SINGLETON 10/04 [facility] [place] [facility] Outpatient Encounter [id number] [id number] 10/10 [facility] NEUROMUSCU LAR REEDUCATIO N 00416-8.61 [id number] Diagnos is: ICD-10- CM M54.2 Cervica DAMARIS Mosquera 10/10 [facility] Outpatient Encounter [id number] [id number] 10/25 [facility] OFFICE O/P EST HI 40 MIN [id number] [id number] Diagnos is: ICD-10- CM R16.1 Splenom egaly, not elsewhe re classif ied SCARIA,FILI RGE S 10/25 [facility] [place] [facility] Outpatient Encounter [id number] [id number] 11/10 [facility] Outpatient Encounter [id number] [id number] 11/18 [facility] [place] [facility] Outpatient Encounter [id number] [id number] 11/22 [facility] OFFICE O/P EST HI 40 MIN [id number] [id number] Diagnos is: ICD-10- CM R16.1 Splenom egaly, not elsewhe re classif ied SCARIA,FILI RGE S 11/22 [facility] Outpatient Encounter [id number] [id number] 11/23 [facility] OFFICE O/P EST MOD 30 MIN [id number] [id number] Diagnos is: ICD-10- CM H55.81 Deficie nt saccadi c eye movemen ts EUGENIA SCHWARTZ 11/25 [facility] Outpatient Encounter [id number] [id number] Federico VAN Zeyad 11/25 [place] [facility] [place] [facility] EMERGENCY DEPT VISIT MOD MDM [id number] [id number] Diagnos is: ICD-10- CM R53.1 LIZZIE Melgar 11/26 [place] [facility] OFFICE O/P NEW MOD 45 MIN [id number] [id number] Diagnos is: ICD-10- CM 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 JOSIAH RODRIGUEZ MARÍA R 11/26 [place] [facility] Outpatient Encounter [id number] [id number] 11/28 [place] [facility] OFF/OP CONSLTJ NEW/EST HI 55 [id number] [id number] Diagnos is: ICD-10- CM 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 DUARTE FRANCOIS 11/30 [place] [facility] [place] [facility] Outpatient Encounter [id number] [id number] TRUDI FITZGERALD 12/01 [facility] PH1 ASSMT&MGMT NQHP 5-10 [id number] [id number] Diagnos is: ICD-10- CM 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 VEENA SINGLETON 12/01 [place] [facility] [place] [facility] OFF/OP CONSLTJ NEW/EST HI 55 [id number] [id number] Diagnos is: ICD-10- CM 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 Zeyad MINAYA 12/02 [place] [facility] [place] [facility] Outpatient Encounter [id number] [id number] TRUDI FITZGERALD 12/07 [place] [facility] [place] [facility] Outpatient Encounter [id number] [id number] 12/07 [place] [facility] [place] [facility] Outpatient Encounter [id number] 12/09 [place] [facility] [place] [facility] Outpatient Encounter [id number] 12/09 [place] [facility] [place] [facility] Outpatient Encounter [id number] 12/09 [place] [facility] [place] [facility] Outpatient Encounter [id number] 12/09 [place] [facility] [place] [facility] Outpatient Encounter [id number] [id number] 12/09 [place] [facility] [place] [facility] OFFICE O/P EST HI 40 MIN [id number] [id number] Diagnos is: ICD-10- CM R53.1 SHABANA Powell 12/13 [facility] [place] [facility] Outpatient Encounter [id number] 12/21 [place] [facility] [place] [facility] OFFICE O/P EST MOD 30 MIN [id number] Diagnos is: ICD-10- CM 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 LAUREL GAVIN IUS 12/22 [facility] THERAPEUTI C EXERCISES [id number] [id number] Diagnos is: ICD-10- CM G89.29 Other chronic pain YANICK BRAGG 12/23 [facility] SELF CARE MNGMENT TRAINING [id number] Diagnos is: ICD-10- CM G89.29 Other chronic pain GONZALES HERNANDEZ 12/28 [facility] PSYCH DIAGNOSTIC EVALUATION [id number] Diagnos is: ICD-10- CM F43.10 Post-tr aumatic stress disorde r, unspeci fiJANINA Ward 12/29 [facility] PSYCH DIAGNOSTIC EVALUATION 65020-8.61 [id number] Diagnos is: ICD-10- CM Z65.9 Problem related to 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 psychos ocial circums ritesh WEST DO NNA L 01/02 [facility] [place] [facility] Outpatient Encounter [id number] [id number] 01/04 [facility] [place] [facility] Outpatient Encounter [id number] [id number] TRUDI FITZGERALD 01/05 [facility] EMERGENCY DEPT VISIT LOW MDM [id number] [id number] Diagnos is: ICD-10- CM J11.89 Influen za due to unident ified influen za virus w oth SUSAN Porter IN J 01/05 [facility] Outpatient Encounter [id number] [id number] 01/06 [facility] Outpatient Encounter [id number] [id number] 01/09 [facility] Outpatient Encounter [id number] [id number] 01/10 [facility] Social History Combined list of available smoking, tobacco, and other social history from Department of Defense and Veterans Affairs facilities. Social History Type Response Date Comment Sourc e Tobacco smoking status WIIS [facility] FORMER USER 11/27/2023 [facility] History of tobacco use NH-TOBACCO QUIT 5 TO < 15 YRS 11/27/2023 [facility] History of tobacco use NH-TOBACCO FORMER USER 01/14/2023 [facility] Plan of Care List of future care activities from Department of Veterans Affairs facilities. Additional future care activities may be listed in the Assessment and Plan section. Date/Time Care Activity Care Activity Detail Facili ty 01/10/2025 AMBULATORY - REHAB MEDICINE AMBULATORY - REHAB MEDICINE [facility]
--- OUTSIDE RECORDS SUMMARY | 2025-01-11 10:10 | XMS_ITS | Encounter Summary ---
Author Name [facility] [place] [place] Organization [facility] [place] [place] Address [address] [place] [id number] Care Team Providers Care Senior Technical Business Analyst Name Role Phone LONA MARÍA Primary Care Provider Unavail able Selected Encounter This section includes the information on record at [place] for the Encounter. Date/Time Encounter Type Encounter Description Reason Provider Source Jan 05, 2025 01:58 PM EMERGENCY DEPT VISIT [facility] EM[facility]GENCY DEPT ICD-10-CM J11.89 Influenza due to unidentified influenza virus w [facility] manifest DELBERT ZURITA [place] Encounter Template Text not used by [place] Assessments - Encounter Diagnoses This section includes the primary and secondary diagnoses documented for the Encounter. Date/Time Primary/Secondary Diagnosis Diagnosis Name Provider Source Jan 05, 2025 03:19 PM PRIMARY Influenza due to unidentified influenza virus w oth manifest DELBERT ZURITA [facility] Jan 05, 2025 03:19 PM SECONDARY Hemorrhagic otitis externa, right ear DELBERT ZURITA [facility] Plan of Treatment: Future Appointments (+ 6 months) and Future Tests (+/- 45 days) The Plan of Treatment section includes future care activities for the patient from all [place] treatmentfacilities. This section includes future appointments and future orders which are active, pending or scheduled. Future Appointments This section includes appointments that were scheduled to occur 6 months from the date of the Encounter, up to a maximum of 20 appointments. The data comes from all [facility]. Appointment Date/Time Appointment Type Appointme [...] MEDICIN E [facility] Jan 23, 2025 09:00 AM AMBULATORY - REHAB MEDICIN E [facility] Jan 25, 2025 09:00 AM AMBULATORY - REHAB MEDICIN E [facility] February 21, 2025 10:00 AM AM[place]ORY - [place]ONE [place] [facility] February 21, 2025 11:00 AM AMBULATORY - MEDICINE [place] [facility] February 28, 2025 01:00 PM AMBULATORY - REHAB MEDICIN E [facility] March 14, 2025 02:00 PM AMBULATORY - REHAB MEDICIN [facility] Apr 28, 2025 09:30 AM AMBULATORY - SURGERY [facility] Active, Pending, and Scheduled Orders This section includes a listing of several types of active, pending, and scheduled orders, including clinic medications orders, diagnostic test orders, procedure orders and consult orders; where the start date of the order is 45 days before the date of the Encounter or 45 days after the date of theEncounter. The data comes from all [facility]. Test Date/Time Test Type Test Details Facility Name Nov 25, 2024 10:22 AM Consult Order OT OCCUPATIONAL THERAPY OUTPT VISION THERAPY Cons Heel Seat [facility] Nov 30, 2024 12:00 AM [...] CSP PCAFC FUNCTIONAL ASSESSMENT INSTRUMENT OUTPT Cons Heel Seat [facility] Jan 03, 2025 12:08 PM Consult Order OT OCCUPATIONAL THERAPY OUTPT HOME ACCESSIBILITY Cons Heel Seat [facility] Jan 05, 2025 03:02 PM Consult Order ENT OUTPT Cons [facility] Lab Results: +/- 30 days of the encounter This section includes the Chemistry and Hematology Lab Results on record with [place] for the patient. Radiology Reports and Pathology [...] 2024 09:29 AM Reporting Lab: [facility] [id number] Performing Lab: [facility] [id number] .INR 1.1 0.8-1.1 .PT 12.9 s H 9.4-12.5 Dec 09, 2024 08:34 AM [facility] CREATININE(INCLUDES EGFR) Specimen Type: PLASMA No comment entered. Ordering Provider: STEPHEN FRANCOIS Report Released Date/Time: Dec 06, 2024 09:29 AM Reporting Lab: [facility] [address] Performing Lab: [facility] [address] CREATININE 0.6 mg/dL 0.5-1.0 .CREAT EGFR(CKD-EPI) >90 >60 Dec 09, 2024 08:34 AM [facility] CBC & DIFF Specimen Type: BLOOD Comment: Automated Differential Performed Ordering Provider: STEPHEN FRANCOIS Report Released Date/Time: Dec 06, 2024 09:29 AM Reporting Lab: [facility] [address] Performing Lab: [facility] [address] WBC 4.4 4.0-11.0 RBC 4.42 4.00-5.40 HGB [...] and tobacco- related health factors from the [place] facility where the Encounter took place. Current Smoking Status This section includes the most current smoking, or tobacco-related health factor, from the [place] facility where the Encounter took place. Date/Time Current Smoking Status Comment Srini ity Nov 27, 2023 03:30 PM VA-TOBACCO FORMER USER [facility] Tobacco Use History This section includes a history of the smoking, or tobacco-related health factors, that were collected on or before the date of the Encounter. The data comes from the [place] facility where the Encounter took place. Date/Time Smoking Status/Tobacco Use Comment F acility Nov 27, 2023 03:30 PM VA-TOBACCO QUIT 5 TO < 15 YRS [facility] Jan 14, 2023 09:03 AM VA-TOBACCO FORMER USER [facility] Jan 14, 2023 09:03 AM [place]-TOBACCO QUIT 5 TO < 15 YRS [facility] [...] the Encounter. The data comes from all [place] treatment facilities. Date/Time Radiology Report Provider Source Dec 16, 2024 07:03 AM MRI-BRAIN (P): AWAIS PADILLA [id number] -1990 F Exm Date: DEC 16, 2024@07:03 Req Phys: ALESSANDROSTEPHEN KENNEDY Loc: [facility] TRAINING PERSONNEL SUPERVISOR CONSULT-A (Re Img Loc: MRI IMAGING Service: Unknown Screen: [place] [address] (Case [id number] COMPLETE) MRI BRAIN/BRAINSTEM W/O CONTRAST (MRI Detailed) CPT:35264 Reason for Study: Myelopathy Clinical History: Did the ordering provider speak with a business consultant regarding this imaging exam?No Brain MRI without contrast Myelopathy LAST CREATININE 0.6 (11/22/24) Allergies: METOPROLOL (Jan 14, 2023) REGLAN (Jan 14, 2023) My pager number on record is: [phone]. The pager number/cell phone number above is [...] 16, 2024 Date Verified: DEC 16, 2024 Pattern Duplicator E-Sig:/ES/SUJIT DENIS MD Report: MRI BRAIN/BRAINSTEM W/O [...] Primary Interpreting Staff: SUJIT DENIS MD, RADIOLOGIST (Pattern Duplicator) /[facility] SUJIT DENIS [facility] Dec 09, 2024 09:[address] MYELOGRAM THORA CIC (P): VALERIEARMENADRIEN SALVADOR [id number] -1990 F Exm Date: DEC 09, 2024@09:52 Req Phys: STEPHEN FRANCOIS Pat Loc: [facility] TRAINING PERSONNEL SUPERVISOR CONSULT-A (Re Img Loc: CT IMAGING Service: Unknown Screen: [place] [address] (Case [id number] COMPLETE) CT MYELOGRAM THORACIC SPINE (CT Detailed) CPT:67365 CPT Modifiers : 59 DISTINCT PROCEDURAL SERVICE [...] PLASMA .CREAT EGFR(CKD-E >90 Ref: >=60 Allergies: ([place] only) METOPROLOL (Jan 14, 2023) REGLAN (Jan 14, 2023) Defer to radiologist for final CT protocol. User Placing Order: STEPHEN FRANCOIS L - Office Phone: My pager number on record is: [phone]. The pager number/cell phone number above is NOT correct for reporting critical results, I have entered my correct number below: My correct contact # for critial results is:neurosurgery personal finance instructor Trainees only: Enter your staff provider's info here: Per Joint Commission Standards, by signing this diagnostic imaging request the ordering provider confirms they have considered patients age and recent imaging history. Report Status: Verified Date Reported: DEC 09, 2024 Date Verified: DEC 09, 2024 Pattern Duplicator E-Sig:/ES/CARITO POLANCO MD Report: CT Thoracic Spine [...] CARITO POLANCO MD, RADIOLOGIST ([facility]) /CARITO TOLENTINO [facility] Dec 09, 2024 08:50 AM MYELOGRAM THORACIC (P): AWAIS PADILLA [id number] -1990 F Exm Date: DEC 09, 2024@08:50 Req Phys: STEPHEN FRANCOIS Loc: [facility] NEUROSURG TRAINING PERSONNEL SUPERVISOR CONSULT-A (Re Img Loc: MAIN X-RAY Service: Unknown Screen: [place] [address] (Case [id number] COMPLETE) MYELOGRAM THORACIC VIA LUMBAR INJ(RAD Detailed) CPT:81846 Reason for Study: Eval for arachnoid web or cyst at T6 level Clinical History: myelopathy Outside hosptial Thoracic mri w wo contrast is loaded into [facility]. Please do comparison . thank you Responsible provider name and phone number to notify for critical findings if other than user placing the order and pager listed below: User placing orders pager: [phone] Neurosurgery personal finance instructor LAST CREATININE 0.6 (11/22/24) Report Status: Verified Date Reported: DEC 09, 2024 Date Verified: DEC 09, 2024 Pattern Duplicator E-Sig:/ES/CARITO POLANCO MD Report: PROCEDURE: Lumbar puncture with fluoroscopic guidance. Thoracic myelogram. History: Myelopathy. Thoracic MRI shows dorsal lesion at T6. Comparison: Outside recent thoracic MRI exam from the [facility]. Fluoro time: 0.8 minute Dose: Air Kerma: 3.9, mGy, DAP: 3.54, dGy.cm? PROCEDURE: The patient/medical decision-maker understood the limitations, alternatives, and risks of the procedure and requested the procedure be performed. Both iMed and oral consent were obtained. A pre-procedural Time-Out was performed per [facility] policy. The patient was prepped and [...] Primary Interpreting Staff: CARITO POLANCO MD, RADIOLOGIST (Pattern Duplicator) /CARITO TOLENTINO [facility] Encounter Notes: All associated encounter notes This [...] to be in mask in exam room. MD/PA/TRAINING PERSONNEL SUPERVISOR used PPE during every encounter with the patient. Nurse's note reviewed as available. Chief Complaint: The patient is a 34 yo FEMALE complaining of: Right ear, influenza, cough, hemoptysis, back pain History of present illness: The patient is a 34 yo FEMALE here with above. The patient is a 34-year-old woman who describes visit to [facility] ER yesterday related to fall and back [...] mentions that she is followed by a millroom supervisor regarding pancytopenia. She does not voice additional [...] less than 60 - Maternal grandfather of OR at 50 8. History of cerebrospinal fluid [...] BEDTIME ACTIVE 2) Non-VA ONDANSETRON TAB 4MG N4PMIVG ACTIVE 9 Total Medications Physical Exam Temp: [...] 01/06/2025 08:56 /los/ María Seay PA-C Physician Integrated Circuit Fabricator DELBERT ZURITA [facility] Jan 05, 2025 03:06 PM EMERGENCY DEPT [...] Care Provider. Future Appointments 01/06/2025 at 3:00pm [facility] OT BG 1U 01/10/2025 at 9:00am [facility] V23 VVC [facility] HCC OT 82 01/16/2025 at 10:00am [facility] PAIN PSY BRAMBILA 01/18/2025 at 9:00am [facility] PAIN PT YANICK PT 01/23/2025 at 9:00am [facility] VVC PAIN PSY BRAMBILA 01/25/2025 at 9:00am [facility] VVC CG SW 6 02/21/2025 at 10:00am [facility] LAB TIME SENS BLOOD DRAW 02/21/2025 at 11:00am [facility] ONC SCARIA 02/28/2025 at 1:00pm [facility] PAIN BELGRADE 03/14/2025 at 2:00pm [facility] NEURO ANNAM 04/28/2025 at 9:30am [facility] EYE POLYTRAUMA FEHLHAFER This Information Is About [...] loosen secretions in your nose and lungs. -Wjiv-wwx-lbgggvf cold medicines will not make the flu [...] HOURS NEEDED FOR NAUSEA ONDANSETRON TAB 4MG [id number] (Non-VA Medication) RIBOFLAVIN 100MG TAB TAKE FOUR [...] GO TO THE NEAREST EMERGENCY ROOM /los/ DELBERT ZURITA MD STAFF PHYSICIAN Signed: 01/05/2025 15:06 DELBERT ZURITA [facility] Jan 05, 2025 02:54 PM NURSING EMERGENCY [...] DEAN RN Signed: 01/05/2025 14:58 MARÍA DEAN [facility] Jan 05, 2025 02:32 PM EMERGENCY DEPT TRIAGE NOTE: LOCAL TITLE: EMERGENCY DEPARTMENT TRIAGE STANDARD TITLE: EMERGENCY DEPT TRIAGE NOTE DATE OF NOTE: JAN 05, 2025@14:32 ENTRY DATE: JAN 05, 2025@14:33:01 AUTHOR: SOFIA RAMOS EXP COSIGNER: URGENCY: STATUS: COMPLETED EMERGENCY DEPARTMENT TRIAGE [...] hard that she is coughing up blood. upsetter setter up Note (Subjective/Objective): Also c/o severe back pain. [...] patient is not currently lactating. Suicide Screen: Barnes Suicide Severity Rating Scale (C-SSRS) screener 1. [...] Exposure to potentially hazardous substaTraumatic brain injury ([facility] [id number]) Temporomandibular joint disorder (SCT 41Unintentional weight loss (SCT 066182207) Mood disorder (SCT 05968270) Headache ([facility] [id number]) Family history: Myocardial infarction atHistory of cerebrospinal fluid leak (ICD-10-CM R69.) History of gestational diabetes mellitusGeneralized enlarged lymph nodes (SCT 028329939) Splenomegaly (SCT 77568497) Myelopathy ([facility] [id number]) /los/ SOFIA RAMOS FINISH PHOTOGRAPHER RN Signed: 01/05/2025 14:39 01/05/2025 ADDENDUM STATUS: COMPLETED 14:45 A very high scream came from the waiting room and then started to yell that her ear has just ruptured. Charge nurse notified to room immediately. When letting her know that a room is being obtained, she started yelling that she shouldn't have to wait. /los/ SOFIA RAMOS FINISH PHOTOGRAPHER RN Signed: 01/05/2025 14:52 SOFIA RAMOS [facility]
--- OUTSIDE RECORDS SUMMARY | 2025-01-11 10:10 | XMS_ITS | Encounter Summary ---
Author Name Department of [place] Organization [place] Address [address] [place] [address] Care Team Providers Care Executive Receptionist Name Role Phone LONA CINDY Primary Care [...] 24, 2024 02:07 PM AMBULATORY - MEDICINE [facility] Aug 01, 2024 01:01 PM [facility] [place] [facility] Aug 02, 2024 09:30 AM AMBULATORY - MEDICINE [facility] Aug 03, 2024 03:00 PM AMBULATORY - REHAB MEDICIN E [facility] Aug 16, 2024 08:30 AM AMBULATORY - REHAB MEDICIN E [facility] Aug 23, 2024 02:24 PM [place]ORY [place]IC[place] [facility] Sep 05, 2024 05:20 PM AMBULATORY - REHAB MEDICIN E [facility] Sep 19, 2024 01:00 PM [place]ORY - [place]ONE [place] [facility] Oct 04, 2024 09:00 AM AMBULATORY - REHAB MEDICIN E [facility] Oct 10, 2024 09:30 AM AMBULATORY - REHAB MEDICIN E [facility] Oct 25, 2024 10:00 [facility] Oct 25, 2024 05:10 PM AMBULATORY - REHAB MEDICIN E [facility] Nov 15, 2024 12:45 PM [place]ORY - [place]ONE [place] [facility] Nov 22, 2024 09:30 AM [place]ORY - [place]ONE [place] [facility] Nov 22, 2024 10:30 AM [facility] Nov 25, 2024 09:30 AM AMBULATORY - SURGERY [facility] Nov 26, 2024 09:29 AM AM[place]UL[place]ORY - [place]ICINE [place] [facility] Nov 30, 2024 11:00 AM [facility] Dec 02, 2024 08:00 AM AMBULATORY - REHAB MEDICIN E [facility] Dec 09, 2024 08:30 AM [place]ORY [place] [facility] Lab Results: +/- 30 days of [...] Range Comment Jul 24, 2024 04:10 PM [facility] HCG, QUAL Specimen Type: URINE No comment entered. Ordering Provider: LISA ESPARZA Report Released Date/Time: Jul 24, 2024 02:59 PM Reporting Lab: [facility] [address] Performing Lab: [facility] [address] HCG, QUAL NEGATIVE -neg- Jul 24, 2024 04:10 PM [facility] URINALYSIS Specimen Type: URINE No comment entered. Ordering Provider: LISA ESPARZA Report Released Date/Time: Jul 24, 2024 02:59 PM Reporting Lab: [facility] [address] Performing Lab: [facility] [address] URINE COLOR LIGHT-YELLOW SPECIFIC GRAVITY 1.023 1.003-1.03 [...] NEGATIVE NEGATIVE Jul 24, 2024 03:09 PM [facility] EXTRA GOLD GEL TUBE Specimen Type: SERUM No comment entered. Ordering Provider: LISA ESPARZA Report Released Date/Time: Jul 24, 2024 03:09 PM Reporting Lab: [facility] [address] Performing Lab: [facility] [address] EXTRA GOLD GEL TUBE RECEIVED Jul 24, 2024 03:08 PM [facility] PROTHROMBIN TIME/INR Specimen Type: PLASMA No comment entered. Ordering Provider: LISA ESPARZA Report Released Date/Time: Jul 24, 2024 02:59 PM Reporting Lab: [facility] [address] Performing Lab: [facility] [address] .INR 1.0 0.8-1.1 .PT 12.1 s 9.4-12.5 Jul 24, 2024 03:08 PM [facility] CBC & DIFF Specimen Type: BLOOD Comment: Automated Differential Performed Ordering Provider: LISA ESPARZA Report Released Date/Time: Jul 24, 2024 02:59 PM Reporting Lab: [facility] [address] Performing Lab: [facility] [address] WBC 4.4 4.0-11.0 RBC 4.48 4.00-5.40 HGB [...] RO) 0.2 ABS IMMATURE GRAN 0.0 0-0.1 Jul 24, 2024 03:08 PM [facility] COMPREHENSIVE METABOLIC PANEL+MG Specimen Type: PLASMA No comment entered. Ordering Provider: LISA ESPARZA Report Released Date/Time: Jul 24, 2024 02:59 PM Reporting Lab: [facility] [address] Performing Lab: [facility] [address] CREATININE 0.6 mg/dL 0.5-1.0 UREA NITROGEN 10 [...] 16 U/L 11-34 .CREAT EGFR(CKD-EPI) >90 >60 Social History: Smoking Status (Most current) and Tobacco Use (All prior to encounter date) This section includes the most current, and the historical, smoking and tobacco- related health factors from the [place] facility where the Encounter took place. Current Smoking Status This section includes the most current smoking, or tobacco-related health factor, from the [place] facility where the Encounter took place. Date/Time Current Smoking Status Comment Srini zaldivar Nov 27, 2023 03:30 PM VA-TOBACCO FORMER USER [facility] Tobacco Use History This section includes a history of the smoking, or tobacco-related health factors, that were collected on or before the date of the Encounter. The data comes from the [facility] where the Encounter took place. Date/Time Smoking Status/Tobacco Use Comment F lyle Nov 27, 2023 03:30 PM VA-TOBACCO QUIT 5 TO < 15 YRS [facility] Jan 14, 2023 09:03 AM VA-TOBACCO FORMER USER [facility] Jan 14, 2023 09:03 AM VA-TOBACCO QUIT 5 TO < 15 YRS [facility] Radiology Reports: +/- 30 days of [...] CT (AP) ABDOMEN/PE LVIS (P): AWAIS PADILLA [id number] -1990 F Exm Date: JUL 24, 2024@15:44 Req Phys: ÁNGEL ESPARZA Pat Loc: [facility] EMERGENCY DEPT WALK-IN (Re Img Loc: CT IMAGING Service: Unknown Screen: [place] [address] (Case 41 COMPLETE) CT (AP) ABDOMEN/PELVIS W CONTRAST(CT Detailed) CPT:74944 Contrast Media : Non-ionic Iodinated Reason for [...] PLASMA .CREAT EGFR(CKD-E >90 Ref: >=60 Allergies: ([place] only) METOPROLOL (Jan 14, 2023) REGLAN (Jan 14, 2023) Defer to radiologist for final CT protocol. Contact number for responsible provider who can be reached for any questions or notifications of critical findings: tish ext [phone] Per Joint Commission Standards, by signing this diagnostic imaging request the ordering provider confirms they have considered patients age and recent imaging history. Report Status: Verified Date Reported: JUL 24, 2024 Date Verified: JUL 24, 2024 Pharmacy Sales Assistant E-Sig: Report: CT (AP) ABDOMEN/PELVIS W [...] mild splenomegaly. READING PHYSICIAN: Nunu Jackson MD -[id number] 07/24/2024 14:20 PDT [facility] National Teleradiology Program [phone] (For Medical Practitioner Use Only) Attention Patients / Veterans: If you have questions or concerns about these test results, please contact your ordering provider or primary care team. Primary Interpreting Staff: RADIOLOGY,OUTSIDE SERVICE, Staff Physician / RADIOLOGY,OUTSIDE SERVICE [facility] Jun 13, 2024 11:16 AM US ABDOMEN COMPL/D OPPLER (P): AWAIS PADILLA [id number] -1990 F Exm Date: JUN 13, 2024@11:16 Req Phys: KURT NEWELL Pat Loc: [facility] ONC SCARIA (Req'g Loc) Img Loc: [facility] Service: Unknown Screen: Patient answered no (Case [id number] COMPLETE) NON [place] US ABDOMEN (US Detailed) CPT:18485 Reason for Study: Abdominal pain Clinical History: Recurrent abdominal pain, now with right sided pain, previously with L sided pain and splenomegaly Responsible provider name and phone number to notify for critical findings if other than user placing the order and pager listed below: User placing orders pager: [phone] LAST CREATININE 0.7 (04/26/24) Report Status: Electronically [...] Diagnostic Code: VERIFIED BY: / *ELECTRONICALLY FILED* [facility] Encounter Notes: All associated encounter notes [...] order will be placed to our partner, [facility], for a home sleep test to be [...] the delivered package. Tests are delivered by [facility]. They will continue to follow up [...] we want to see a normal night [place] Sleepiness Scale Using the scale: 0=Never 1=Slight [...] week =Y 11. Irregular sleep schedule (including second shift supervisor or rotating shifts) =N 12. Aching [...] your sleep: Results will be returned to [place] for a Sleep provider to interpret. Once this has been completed, the sleep clinic will reach out to review results and next steps. This process takes up to two weeks. All patient's questions were addressed and is ready for the HST study. Informed them to call with any further questions or concerns at [phone], M- [phone] and we will be happy to assist. /los/ RAMESH OLEARY [facility] Signed: 07/13/2024 07:39 RAMESH OLEARY [facility]
--- OUTSIDE RECORDS SUMMARY | 2025-01-11 10:10 | XMS_ITS | Encounter Summary ---
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 Date/Time Encounter Type Encounter Description Reason Provider Source Dec 13, 2024 01:00 PM OFFICE O/P EST HI 40 MIN NEUROLOGY ICD-10-CM R53.1 Weakness JOSE ANTONIO [place] Encounter Template Text not used by [place] Assessments - Encounter Diagnoses This section includes the primary and secondary diagnoses documented for the Encounter. 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 The data comes from all [facility]. Appointment Date/Time Appointment Type Appointme nt Facility Name Dec 16, 2024 07:00 AM AMBULATORY - NONE [facility] Dec 21, 2024 10:00 AM AMBULATORY - REHAB MEDICIN E [facility] Dec 22, 2024 11:00 AM AMBULATORY - SURGERY [facility] Dec 23, 2024 08:00 AM AMBULATORY - REHAB MEDICIN E [facility] Dec 28, 2024 01:00 PM AMBULATORY - REHAB MEDICIN E [facility] Dec 29, 2024 10:00 AM AMBULATORY - REHAB MEDICIN E [facility] Jan 02, 2025 08:30 AM AMBULATORY - REHAB MEDICIN E [facility] Jan 05, 2025 01:58 PM AMBULATORY - MEDICINE [facility] Jan 06, 2025 03:00 PM AMBULATORY - REHAB MEDICIN E [facility] Jan 10, 2025 09:00 AM AMBULATORY - REHAB MEDICIN E [facility] Jan 16, 2025 10:00 AM AMBULATORY - REHAB MEDICIN E [facility] Jan 18, 2025 09:00 AM AMBULATORY - REHAB MEDICIN E [facility] Jan 23, 2025 09:00 AM AMBULATORY - REHAB MEDICIN [facility] Jan 25, 2025 09:00 AM AMBULATORY - REHAB MEDICIN E [facility] February 21, 2025 10:00 AM AMBULATORY - NONE [facility] February 21, 2025 11:00 AM AMBULATORY - MEDICINE [facility] February 28, 2025 01:00 PM AMBULATORY - REHAB MEDICIN E [facility] March 14, 2025 02:00 PM AMBULATORY - REHAB MEDICIN E [facility] Apr 28, 2025 09:30 AM AMBULATORY - SURGERY [facility] Active, Pending, and Scheduled Orders This section [...] OT OCCUPATIONAL THERAPY OUTPT VISION THERAPY Cons School Attendance Secretary's Choice [facility] Nov 30, 2024 12:00 AM Laboratory - Chemistry Order CBC BLOOD STAT SP ONCE [facility] Nov 30, 2024 12:00 AM Laboratory - Chemistry Order CREATININE(INCLUDES EGFR) PLASMA STAT SP ONCE [facility] Nov 30, 2024 12:00 AM Laboratory - Chemistry Order PROTHROMBIN TIME/INR PLASMA STAT SP [facility] Dec 01, 2024 11:53 AM Consult Order CSP PCAFC FUNCTIONAL ASSESSMENT INSTRUMENT OUTPT Cons School Attendance Secretary's [facility] Jan 03, 2025 12:08 PM Consult Order OT OCCUPATIONAL THERAPY OUTPT HOME ACCESSIBILITY Cons School Attendance Secretary's [facility] Jan 05, 2025 03:02 PM Consult Order ENT OUTPT Cons School Attendance Secretary[facility] Lab Results: +/- 30 days [...] Range Comment Dec 09, 2024 08:34 AM [facility] PROTHROMBIN TIME/INR Specimen Type: PLASMA No comment entered. Ordering Provider: FORD FRANCOIS Report Released Date/Time: Dec 06, 2024 09:29 AM Reporting Lab: [facility] [id number] Performing Lab: [facility] [address] .INR 1.1 0.8-1.1 .PT 12.9 s H 9.4-12.5 Dec 09, 2024 08:34 AM [facility] CREATININE(INCLUDES EGFR) Specimen Type: PLASMA No comment entered. Ordering Provider: FORD FRANCOIS Report Released Date/Time: Dec 06, 2024 09:29 AM Reporting Lab: [facility] [phone] Performing Lab: [facility] [address] CREATININE 0.6 mg/dL 0.5-1.0 .CREAT EGFR(CKD-EPI) >90 >60 Dec 09, 2024 08:34 AM [facility] CBC & DIFF Specimen Type: BLOOD Comment: Automated Differential Performed Ordering Provider: FORD FRANCOIS Report Released Date/Time: Dec 06, 2024 09:29 AM Reporting Lab: [facility] [id number] Performing Lab: [facility] [address] WBC 4.4 4.0-11.0 RBC 4.42 4.00-5.40 HGB [...] AM [facility] URIC ACID Specimen Type: PLASMA No comment entered. Ordering Provider: KURT NEWELL Report Released Date/Time: Apr 26, 2024 10:33 AM Reporting Lab: [facility] [phone] Performing Lab: [facility] [address] URIC ACID 5.4 mg/dL 2.5-6.2 Nov 22, 2024 09:45 AM [facility] LD,TOTAL Specimen Type: PLASMA No comment entered. Ordering Provider: KURT NEWELL Report Released Date/Time: Apr 26, 2024 10:33 AM Reporting Lab: [facility] [address] Performing Lab: [facility] [address] LD,TOTAL 194 U/L 125-220 Nov 22, 2024 09:45 AM [facility] COMPREHENSIVE METABOLIC PANEL+MG Specimen Type: PLASMA No comment entered. Ordering Provider: KURT NEWELL Report Released Date/Time: Apr 26, 2024 10:33 AM Reporting Lab: [facility] [address] Performing Lab: [facility] [address] CREATININE 0.6 mg/dL 0.5-1.0 UREA NITROGEN 12 [...] [facility] CBC & DIFF Specimen Type: BLOOD Comment: Automated Differential Performed Ordering Provider: KURT NEWELL Report Released Date/Time: Oct 25, 2024 10:32 AM Reporting Lab: [facility] [address] Performing Lab: [facility] [address] WBC 5.4 4.0-11.0 RBC 4.58 4.00-5.40 HGB [...] 0.0 0.0-0.1 Nov 15, 2024 12:58 PM [facility] FINGERSTICK GLUCOSE Specimen Type: BLOOD Comment: Save Result Ordering Provider: LISANDRA ZAMORANO Report Released Date/Time: Nov 17, 2024 07:56 AM Reporting Lab: [facility] [phone] Performing Lab: [facility] [address] FINGERSTICK GLUCOSE 87 mg/dL 70-100 Vital Signs: All taken on the encounter date This section contains inpatient and outpatient Vital Signs collected on the date of the Encounter. Date/Time Temperature Pulse Blood Pressure Respiratory Rate SP02 Pain Height Weight Body Mass Index Source Dec 13, 2024 01:03 PM 77 124/85 18 97 7 [facility] Social History: Smoking Status (Most current) and Tobacco Use (All prior to encounter date) This section includes the most current, and the historical, smoking and tobacco- related health factors from the [place] facility where the Encounter took place. Current Smoking Status This section includes the most current smoking, or tobacco-related health factor, from the [place] facility where the Encounter took place. Date/Time Current Smoking Status Comment Facil ity Nov 27, 2023 03:30 PM [place]-TOBACCO QUIT 5 TO < 15 YRS [facility] Tobacco Use History This section includes a history of the smoking, or tobacco-related health factors, that were collected on or before the date of the Encounter. The data comes from the [place] facility where the Encounter took place. Date/Time Smoking Status/Tobacco Use Comment F acility Nov 27, 2023 03:30 PM [place]-TOBACCO QUIT 5 TO < 15 YRS [facility] Jan 14, 2023 09:03 AM [place]-TOBACCO FORMER USER [facility] Jan 14, 2023 09:03 AM [place]-TOBACCO QUIT 5 TO < 15 YRS NEW [...] 16, 2024 07:03 AM MRI-BRAIN (P): VALERIEARMENADRIEN GRIMME [id number] -1990 F Exm Date: DEC 16, 2024@07:03 Req Phys: STEPHEN FRANCOIS Pat Loc: [facility] NE[facility]OSURG GEOSPATIAL APPLICATIONS DEVELOPER CONSULT-A (Re Img Loc: MRI IMAGING Service: Unknown Screen: [place] [address] (Case [id number] COMPLETE) MRI BRAIN/BRAINSTEM W/O CONTRAST (MRI Detailed) CPT:72450 Reason for Study: Myelopathy Clinical History: Did the ordering provider speak with a business intelligence consultant regarding this imaging exam?No Brain MRI without contrast Myelopathy LAST CREATININE 0.6 (11/22/24) Allergies: METOPROLOL (Jan 14, 2023) REGLAN (Jan 14, 2023) My pager number on record is: [phone]. The pager number/cell phone number above is [...] 16, 2024 Date Verified: DEC 16, 2024 [place] E-Sig:/ES/SUJIT DENIS MD Report: MRI BRAIN/BRAINSTEM W/O [...] Primary Interpreting Staff: SUJIT DENIS MD, RADIOLOGIST ([place]) /[facility] SUJIT DENIS [facility] Dec 09, 2024 09:[address] MYELOGRAM THOR CIC (P): PADILLA,AWAIS MODESTO [id number] -1990 F Exm Date: DEC 09, 2024@09:52 Req Phys: STEPHEN FRANCOIS Loc: [facility] NEUROSURG GEOSPATIAL APPLICATIONS DEVELOPER CONSULT-A (Re Img Loc: CT IMAGING Service: Unknown Screen: [place] [address] (Case [id number] COMPLETE) CT MYELOGRAM THORACIC SPINE (CT Detailed) CPT:24021 CPT Modifiers : 59 DISTINCT PROCEDURAL SERVICE [...] PLASMA .CREAT EGFR(CKD-E >90 Ref: >=60 Allergies: ([place] only) METOPROLOL (Jan 14, 2023) REGLAN (Jan 14, 2023) Defer to radiologist for final CT protocol. User Placing Order: STEPHEN FRANCOIS L - Office Phone: My pager number on record is: [phone]. The pager number/cell phone number above is NOT correct for reporting critical results, I have entered my correct number below: My correct contact # for critial results is:neurosurgery personnel scheduler Trainees only: Enter your staff provider's info here: Per Joint Commission Standards, by signing this diagnostic imaging request the ordering provider confirms they have considered patients age and recent imaging history. Report Status: Verified Date Reported: DEC 09, 2024 Date Verified: DEC 09, 2024 [place] E-Sig:/ES/CARITO POLANCO MD Report: CT Thoracic Spine [...] Primary Interpreting Staff: CARITO POLANCO MD, RADIOLOGIST ([place]) /CARITO TOLENTINO [facility] Dec 09, 2024 08:50 AM MYELOGRAM THORACIC (P): AWAIS PADILLA [id number] -1990 F Exm Date: DEC 09, 2024@08:50 Req Phys: STEPHEN FRANCOIS Loc: [facility] NEUROSURG GEOSPATIAL APPLICATIONS DEVELOPER CONSULT-A (Re Img Loc: MAIN X-RAY Service: Unknown Screen: [place] [address] (Case [id number] COMPLETE) MYELOGRAM THORACIC VIA LUMBAR INJ(RAD Detailed) CPT:58070 Reason for Study: Eval for arachnoid web or cyst at T6 level Clinical History: myelopathy Outside hosptial Thoracic mri w wo contrast is loaded into [facility]. Please do comparison . thank you Responsible provider name and phone number to notify for critical findings if other than user placing the order and pager listed below: User placing orders pager: [phone] Neurosurgery personnel scheduler LAST CREATININE 0.6 (11/22/24) Report Status: Verified Date Reported: DEC 09, 2024 Date Verified: DEC 09, 2024 [place] E-Sig:/ES/CARITO POLANCO MD Report: PROCEDURE: Lumbar puncture with fluoroscopic guidance. Thoracic myelogram. History: Myelopathy. Thoracic MRI shows dorsal lesion at T6. Comparison: Outside recent thoracic MRI exam from the [facility]. Fluoro time: 0.8 minute Dose: Air Kerma: 3.9, mGy, DAP: 3.54, dGy.cm? PROCEDURE: The patient/medical decision-maker understood the limitations, alternatives, and risks of the procedure and requested the procedure be performed. Both iMed and oral consent were obtained. A pre-procedural Time-Out was performed per [facility] policy. The patient was prepped [...] Primary Interpreting Staff: CARITO POLANCO MD, RADIOLOGIST ([place]) /CARITO TOLENTINO [facility] Nov 22, 2024 07:12 PM NON [place] MRI THORACI C SPINE: AWAIS PADILLA [id number] -1990 F Exm Date: NOV 22, 2024@19:12 Req Phys: CINDY ZAMORANO Loc: [facility] XRAY GENERAL AM (Req'g Loc Img Loc: OUTSOURCE MRI Service: Unknown Screen: Patient answered no (Case [id number] COMPLETE) NON [place] MRI THORACIC SPINE (MRI Detailed) CPT:46030 Reason for Study: OUTSIDE STUDY Clinical History: OUTSIDE STUDY Report Status: Electronically Filed Date Reported: NOV 30, 2024 Report: This is an outside Imaging study and/or report imported for continuity of patient care. This Imaging study and/or report was not reviewed or verified by a [place] Radiologist. Impression: This is an outside Imaging study and/or report imported for continuity of patient care. This Imaging study and/or report was not reviewed or verified by a [place] Radiologist. Primary Diagnostic Code: VERIFIED BY: / *ELECTRONICALLY FILED* [facility] Nov 15, 2024 12:[address] BODY W/O CO NTRAST (P): AWAIS PADILLA [id number] -1990 F Exm Date: NOV 15, 2024@12:39 Req Phys: KURT NEWELL Pat Loc: [facility] ONC SCARIA (Req'g Loc) Img Loc: NUC MED Service: Unknown Screen: [place] [address] (Case [id number] COMPLETE) SKULL-THIGH PET IMAGE W/CT (NM Detailed) CPT:50296 Reason for Study: Evaluation for malignacy (Case [...] pager listed below: User placing orders pager: [phone] LAST CREATININE 0.6 (07/24/24) Report Status: Verified Date Reported: NOV 15, 2024 Date Verified: NOV 15, 2024 [place] E-Sig:/ES/CAIN SMART MD Report: PET/CT SCAN INDICATION: [...] Staff: CAIN SMART MD, RADIOLOGY STAFF PHYSICIAN ([place]) /[facility] CR [facility] Encounter Notes: All [...] arachnoid web HISTORY OF PRESENT ILLNESS AWAIS PADILLA is a 34-year-old female with [...] less than 60 - Maternal grandfather of MD at 50 8. History of cerebrospinal fluid [...] Volume appropriate. Naming, repetition, comprehension all intact director digital II - No visual field deficit; Fundi [...] [place] Physician Signed: 12/20/2024 13:43 CORETTA BALDWIN [facility] Dec 13, 2024 01:04 PM NEUROLOGY NURSING OUTPATIENT NOTE: LOCAL TITLE: NEUROLOGY CLINIC NURSING NOTE STANDARD TITLE: NEUROLOGY NURSING OUTPATIENT NOTE DATE OF NOTE: DEC 13, 2024@13:04 ENTRY DATE: DEC 13, 2024@13:04:55 AUTHOR: [facility] EM EXP COSIGNER: URGENCY: STATUS: COMPLETED Type of visit: Appointment Check In Reason for Visit: Here [facility] Vital Signs: Blood Pressure: 124/85 (12/13/2024 13:03) [...] BEDTIME ACTIVE 2) Non-[facility] ONDANSETRON TAB 4MG [id number] ACTIVE 11 Total Medications Patient reports the [...] PRACTICAL NURSE Signed: 12/13/2024 13:05 [facility] EM [facility]
--- OUTSIDE RECORDS SUMMARY | 2025-01-11 10:10 | XMS_ITS | Encounter Summary ---
Author Name [facility] [place] Organization [facility] [place] Address [address] [place] [address] Care Team Providers Care Brick Maker Name Role Phone LONA CINDY Primary Care Provider Unavail able Selected Encounter This section includes the information on record at [place] for the Encounter. Date/Time Encounter Type Encounter Description Reason Pro vider Source Nov 28, 2024 11:46 AM Outpatient Encounter NEUROLOGY E Encounter Template Text not used by [place] Plan of Treatment: Future Appointments (+ 6 [...] 20 appointments. The data comes from all [place] treatment facilities. Appointment Date/Time Appointment Type Appointme nt Facility Name Nov 30, 2024 11:00 AM AMBULATORY - SURGERY [facility] Dec 02, 2024 08:00 AM AMBULATORY - REHAB MEDICIN E [facility] Dec 09, 2024 08:30 AM AM[place]ORY - NONE [place] [facility] Dec 09, 2024 09:30 AM [facility] [place] [facility] Dec 09, 2024 10:30 AM [facility] Dec 09, 2024 10:45 AM AMBULATORY - SURGERY [facility] Dec 13, 2024 01:00 PM AMBULATORY - REHAB MEDICIN E [facility] Dec 16, 2024 07:00 [facility] Dec 21, 2024 10:00 AM AMBULATORY - REHAB MEDICIN E [facility] Dec 22, 2024 11:00 AM AMBULATORY - SURGERY [facility] Dec 23, 2024 08:00 AM AMBULATORY - REHAB MEDICIN E [facility] Dec 28, 2024 01:00 PM AMBULATORY - REHAB MEDICIN E [facility] Dec 29, 2024 10:00 AM AMBULATORY - REHAB MEDICIN E [facility] Jan 02, 2025 08:30 AM AMBULATORY - REHAB MEDICIN E [facility] Jan 05, 2025 01:58 PM [facility] Jan 06, 2025 03:00 PM AMBULATORY - REHAB MEDICIN E [facility] Jan 10, 2025 09:00 AM AMBULATORY - REHAB MEDICIN E [facility] Jan 16, 2025 10:00 AM AMBULATORY - REHAB MEDICIN E [facility] Jan 18, 2025 09:00 AM AMBULATORY - REHAB MEDICIN [facility] Jan 23, 2025 09:00 AM AMBULATORY - REHAB MEDICIN [facility] Active, Pending, and Scheduled Orders This section includes a listing of several types of active, pending, and scheduled orders, including clinic medications orders, diagnostic test orders, procedure orders and consult orders; where the start date of the order is 45 days before the date of the Encounter or 45 days after the date of theEncounter. The data comes from all [facility]. Test Date/Time Test Type Test Details Facility Name Oct 25, 2024 12:00 AM Laboratory - Chemistry Order CBC & DIFF BLOOD ONCO SP ONCE [facility] Nov 25, 2024 10:22 AM Consult Order OT OCCUPATIONAL THERAPY OUTPT VISION THERAPY Cons Field Contact Technician's Choice [facility] Nov 30, 2024 12:00 AM Laboratory - Chemistry Order CBC BLOOD STAT SP ONCE [facility] Nov 30, 2024 12:00 AM Laboratory - Chemistry Order CREATININE(INCLUDES EGFR) PLASMA STAT SP ONCE [facility] Nov 30, 2024 12:00 AM Laboratory - Chemistry Order PROTHROMBIN TIME/INR PLASMA STAT SP [facility] Dec 01, 2024 11:53 AM Consult Order CSP PCAFC FUNCTIONAL ASSESSMENT INSTRUMENT OUTPT Cons Field Contact Technician's Choice [facility] Jan 03, 2025 12:08 PM Consult Order OT OCCUPATIONAL THERAPY OUTPT HOME ACCESSIBILITY Cons Field Contact Technician's Choice [facility] Jan 05, 2025 03:02 PM Consult Order ENT OUTPT Cons Field Contact Technician's [facility] Lab Results: +/- 30 days [...] Range Comment Dec 09, 2024 08:34 AM [facility] CREATININE(INCLUDES EGFR) Specimen Type: PLASMA No comment entered. Ordering Provider: FORD FRANCOIS Report Released Date/Time: Dec 06, 2024 09:29 AM Reporting Lab: [facility] [id number] Performing Lab: [facility] [id number] CREATININE 0.6 mg/dL 0.5-1.0 .CREAT EGFR(CKD-EPI) >90 >60 Dec 09, 2024 08:34 AM [facility] PROTHROMBIN TIME/INR Specimen Type: PLASMA No comment entered. Ordering Provider: FORD FRANCOIS Report Released Date/Time: Dec 06, 2024 09:29 AM Reporting Lab: [facility] [id number] Performing Lab: [facility] [id number] .INR 1.1 0.8-1.1 .PT 12.9 s H 9.4-12.5 Dec 09, 2024 08:34 AM [facility] CBC & DIFF Specimen Type: BLOOD Comment: Automated Differential Performed Ordering Provider: FORD FRANCOIS Report Released Date/Time: Dec 06, 2024 09:29 AM Reporting Lab: [facility] [id number] Performing Lab: [facility] [id number] WBC 4.4 4.0-11.0 RBC 4.42 4.00-5.40 HGB [...] 0.0 0.0-0.1 Nov 22, 2024 09:45 AM [facility] URIC ACID Specimen Type: PLASMA No comment entered. Ordering Provider: KURT NEWELL Report Released Date/Time: Apr 26, 2024 10:33 AM Reporting Lab: [facility] [phone] Performing Lab: [facility] [address] URIC ACID 5.4 mg/dL 2.5-6.2 Nov 22, 2024 09:45 AM [facility] LD,TOTAL Specimen Type: PLASMA No comment entered. Ordering Provider: KURT NEWELL Report Released Date/Time: Apr 26, 2024 10:33 AM Reporting Lab: [facility] [phone] Performing Lab: [facility] [phone] LD,TOTAL 194 U/L 125-220 Nov 22, 2024 09:45 AM [facility] COMPREHENSIVE METABOLIC PANEL+MG Specimen Type: PLASMA No comment entered. Ordering Provider: KURT NEWELL Report Released Date/Time: Apr 26, 2024 10:33 AM Reporting Lab: [facility] [id number] Performing Lab: [facility] [address] CREATININE 0.6 mg/dL 0.5-1.0 UREA NITROGEN 12 [...] >90 >60 Nov 22, 2024 09:44 AM [facility] CBC & DIFF Specimen Type: BLOOD Comment: Automated Differential Performed Ordering Provider: KURT NEWELL Report Released Date/Time: Oct 25, 2024 10:32 AM Reporting Lab: [facility] [phone] Performing Lab: [facility] [id number] WBC 5.4 4.0-11.0 RBC 4.58 4.00-5.40 HGB [...] 0.0 0.0-0.1 Nov 15, 2024 12:58 PM [facility] FINGERSTICK GLUCOSE Specimen Type: BLOOD Comment: Save Result Ordering Provider: LISANDRA ZAMORANO Report Released Date/Time: Nov 17, 2024 07:56 AM Reporting Lab: [facility] [phone] Performing Lab: [facility] [phone] FINGERSTICK GLUCOSE 87 mg/dL 70-100 Social History: Smoking Status (Most current) and Tobacco Use (All prior to encounter date) This section includes the most current, and the historical, smoking and tobacco- related health factors from the [facility] where the Encounter took place. Current Smoking Status This section includes the most current smoking, or tobacco-related health factor, from the [place] facility where the Encounter took place. Date/Time Current Smoking Status Comment Srini ity Nov 27, 2023 03:30 PM VA-TOBACCO FORMER USER [facility] Tobacco Use History This section includes a history of the smoking, or tobacco-related health factors, that were collected on or before the date of the Encounter. The data comes from the [place] facility where the Encounter took place. Date/Time Smoking Status/Tobacco Use Comment F acility Nov 27, 2023 03:30 PM VA-TOBACCO QUIT 5 TO < 15 YRS [facility] Jan 14, 2023 09:03 AM VA-TOBACCO FORMER USER [facility] Jan 14, 2023 09:03 AM VA-TOBACCO QUIT 5 TO < 15 YRS [facility] Radiology Reports: +/- 30 days of the [...] 2024 07:03 AM MRI-BRAIN (P): AWAIS PADILLA [id number] -1990 F Exm Date: DEC 16, 2024@07:03 Req Phys: ALESSANDRO,STEPHEN Shelton Evelyn Loc: [facility] [place] MACHINE LABORER CONSULT-A (Re Img Loc: MRI IMAGING Service: Unknown Screen: [place] [address] (Case [id number] COMPLETE) MRI BRAIN/BRAINSTEM W/O CONTRAST (MRI Detailed) CPT:52850 Reason for Study: Myelopathy Clinical History: Did the ordering provider speak with a budget consultant regarding this imaging exam?No Brain MRI without contrast Myelopathy LAST CREATININE 0.6 (11/22/24) Allergies: METOPROLOL (Jan 14, 2023) REGLAN (Jan 14, 2023) My pager number on record is: [phone]. The pager number/cell phone number above is [...] 16, 2024 Date Verified: DEC 16, 2024 Forest Logistics Manager E-Sig:/ES/SUJIT DENIS MD Report: MRI BRAIN/BRAINSTEM [...] Primary Interpreting Staff: SUJIT DENIS MD, RADIOLOGIST (Forest Logistics Manager) /[facility] SUJIT DENIS [facility] Dec 09, 2024 09:[address] MYELOGRAM HOANG CIC (P): AWAIS PADILLA [id number] -1990 F Exm Date: DEC 09, 2024@09:52 Req Phys: STEPHEN FRANCOIS Pat Loc: [facility] LABORER CONSULT-A (Re Img Loc: CT IMAGING Service: Unknown Screen: [place] [address] (Case [id number] COMPLETE) CT MYELOGRAM THORACIC SPINE (CT Detailed) CPT:13999 CPT Modifiers : 59 DISTINCT PROCEDURAL SERVICE [...] PLASMA .CREAT EGFR(CKD-E >90 Ref: >=60 Allergies: ([facility] only) METOPROLOL (Jan 14, 2023) REGLAN (Jan 14, 2023) Defer to radiologist for final CT protocol. User Placing Order: STEPHEN FRANCOIS - Office Phone: My pager number on record is: [phone]. The pager number/cell phone number above is NOT correct for reporting critical results, I have entered my correct number below: My correct contact # for critial results is:neurosurgery control integration engineer Trainees only: Enter your staff provider's info [...] CARITO POLANCO MD, RADIOLOGIST ([place]) /[facility]ITO TOLENTINO [facility] Dec 09, 2024 08:50 AM MYELOGRAM THORACIC (P): AWAIS PADILLA [id number] -1990 F Exm Date: DEC 09, 2024@08:50 Req Phys: STEPHEN FRANCOIS Loc: [facility] MACHINE LABORER CONSULT-A (Re Img Loc: MAIN X-RAY Service: Unknown Screen: [place] [address] (Case [id number] COMPLETE) MYELOGRAM THORACIC VIA LUMBAR INJ(RAD Detailed) CPT:89002 Reason for Study: Eval for arachnoid web or cyst at T6 level Clinical History: myelopathy Outside hosptial Thoracic mri w wo contrast is loaded into [facility]. Please do comparison . thank you Responsible provider name and phone number to notify for critical findings if other than user placing the order and pager listed below: User placing orders pager: [phone] Neurosurgery control integration engineer LAST CREATININE 0.6 (11/22/24) Report Status: Verified Date Reported: DEC 09, 2024 Date Verified: DEC 09, 2024 Forest Logistics Manager E-Sig:/ES/CARITO POLANCO MD Report: PROCEDURE: Lumbar puncture with fluoroscopic guidance. Thoracic myelogram. History: Myelopathy. Thoracic MRI shows dorsal lesion at T6. Comparison: Outside recent thoracic MRI exam from the [facility]. Fluoro time: 0.8 minute Dose: Air Kerma: 3.9, mGy, DAP: 3.54, dGy.cm? PROCEDURE: The patient/medical decision-maker understood the limitations, alternatives, and risks of the procedure and requested the procedure be performed. Both iMed and oral consent were obtained. A pre-procedural Time-Out was performed per [facility] policy. The patient was prepped and [...] Primary Interpreting Staff: CARITO POLANCO MD, RADIOLOGIST (Forest Logistics Manager) /[facility] TOLENTINO [facility] Nov 22, 2024 07:12 PM NON [place] MRI THORACI C SPINE: AWAIS PADILLA [id number] -1990 F Exm Date: NOV 22, 2024@19:12 Req Phys: CINDY ZAMORANO Loc: [facility] XRAY GENERAL AM (Req'g Loc Img Loc: OUTSOURCE MRI Service: Unknown Screen: Patient answered no (Case [id number] COMPLETE) NON [place] MRI THORACIC SPINE (MRI Detailed) CPT:75665 Reason for Study: OUTSIDE STUDY Clinical History: OUTSIDE STUDY Report Status: Electronically Filed Date Reported: NOV 30, 2024 Report: This is an outside Imaging study and/or report imported for continuity of patient care. This Imaging study and/or report was not reviewed or verified by a [place] Radiologist. Impression: This is an outside Imaging study and/or report imported for continuity of patient care. This Imaging study and/or report was not reviewed or verified by a [place] Radiologist. Primary Diagnostic Code: VERIFIED BY: / *ELECTRONICALLY FILED* [facility] Nov 15, 2024 12:[address] BODY W/O CO NTRAST (P): AWAIS PADILLA [id number] -1990 F Exm Date: NOV 15, 2024@12:39 Req Phys: KURT NEWELL Loc: KISHA NEWELL (Req'g Loc) Img Loc: NUC MED Service: Unknown Screen: [place] [address] (Case [id number] COMPLETE) SKULL-THIGH PET IMAGE W/CT (NM Detailed) CPT:27538 Reason for Study: Evaluation for malignacy (Case [...] pager listed below: User placing orders pager: [phone] LAST CREATININE 0.6 (07/24/24) Report Status: Verified Date Reported: NOV 15, 2024 Date Verified: NOV 15, 2024 Forest Logistics Manager E-Sig:/ES/CAIN SMART MD Report: PET/CT SCAN [...] Staff: CAIN SMART MD, RADIOLOGY STAFF PHYSICIAN (Forest Logistics Manager) /[facility] Nov 10, 2024 10:23 AM NON [place] MRI THORACI C SPINE: AWAIS PADILLA [id number] -1990 F Exm Date: NOV 10, 2024@10:23 Req Phys: CINDY ZAMORANO Loc: [facility] XRAY GENERAL AM (Req'g Loc Img Loc: OUTSOURCE MRI Service: Unknown Screen: Patient answered no (Case [id number] COMPLETE) NON [place] MRI THORACIC SPINE (MRI Detailed) CPT:43906 Reason for Study: OUTSIDE STUDY Clinical History: OUTSIDE STUDY Report Status: Electronically Filed Date Reported: NOV 30, 2024 Report: This is an outside Imaging study and/or report imported for continuity of patient care. This Imaging study and/or report was not reviewed or verified by a [place] Radiologist. Impression: This is an outside Imaging study and/or report imported for continuity of patient care. This Imaging study and/or report was not reviewed or verified by a [place] Radiologist. Primary Diagnostic Code: VERIFIED BY: / *ELECTRONICALLY FILED* [facility] Nov 10, 2024 10:03 AM NON [place] MRI CERVICA L SPINE: AWAIS PADILLA [id number] -1990 F Exm Date: NOV 10, 2024@10:03 Req Phys: CINDY ZAMORANO Loc: [facility] XRAY GENERAL AM (Req'g Loc Img Loc: OUTSOURCE MRI Service: Unknown Screen: Patient answered no (Case 1904 COMPLETE) NON [place] MRI CERVICAL SPINE (MRI Detailed) CPT:66679 Reason for Study: OUTSIDE STUDY Clinical History: OUTSIDE STUDY Report Status: Electronically Filed Date Reported: NOV 30, 2024 Report: This is an outside Imaging study and/or report imported for continuity of patient care. This Imaging study and/or report was not reviewed or verified by a [place] Radiologist. Impression: This is an outside Imaging study and/or report imported for continuity of patient care. This Imaging study and/or report was not reviewed or verified by a [place] Radiologist. Primary Diagnostic Code: VERIFIED BY: / *ELECTRONICALLY FILED* [facility] Nov 10, 2024 09:46 AM NON [place] MRI LUMBAR SPINE: AWAIS PADILLA [id number] -1990 F Exm Date: NOV 10, 2024@09:46 Req Phys: CINDY ZAMORANO Loc: [facility] XRAY GENERAL AM (Req'g Loc Img Loc: OUTSOURCE MRI Service: Unknown Screen: Patient answered no (Case [id number] COMPLETE) NON [place] MRI LUMBAR SPINE (MRI Detailed) CPT:84284 Reason for Study: OUTSIDE STUDY Clinical History: OUTSIDE STUDY Report Status: Electronically Filed Date Reported: NOV 30, 2024 Report: This is an outside Imaging study and/or report imported for continuity of patient care. This Imaging study and/or report was not reviewed or verified by a [place] Radiologist. Impression: This is an outside Imaging study and/or report imported for continuity of patient care. This Imaging study and/or report was not reviewed or verified by a [place] Radiologist. Primary Diagnostic Code: VERIFIED BY: / *ELECTRONICALLY FILED* [facility] Encounter Notes: All associated encounter notes This section contains the clinical notes associated to the Encounter. Date/Time Encounter Note(s) Provider Source Nov 28, 2024 11:46 AM REPORT OF CONTACT: LOCAL TITLE: APPOINTMENT SCHEDULING NOTE STANDARD TITLE: REPORT OF CONTACT DATE OF NOTE: NOV 28, 2024@11:46 ENTRY DATE: NOV 28, 2024@11:46:10 AUTHOR: JOSELINE DANIELLE EXP COSIGNER: URGENCY: STATUS: COMPLETED Attempted to schedule Return to clinic (RTC) Contact attempt made to 1st attempt Telephone 2nd attempt Email 3rd attempt Letter - Sent letter by regular [place] mail to address on file: [place] [address], [place] [address] Left message on voice mail to call back to this number [phone] If [facility] calls back, schedule appt for: Return to [facility] on or around ( Dec 13, 2024 ) for a total of 1 appointment(s) 30 min, lead to schedule /es/ Joseline Danielle PM&R Lead MSA Signed: 11/28/2024 11:46 JOSELINE DANIELLE [facility]
--- OUTSIDE RECORDS SUMMARY | 2025-01-11 10:10 | XMS_ITS | Encounter Summary ---
Author Name [facility] Organization [facility] Address [address] [place] [id number] Care Team Providers Care Inorganic Chemist Name Role Phone CINDY ZAMORANO Primary Care Provider Unavail able Selected Encounter This section includes the information on record at [place] for the Encounter. Date/Time Encounter Type Encounter Description Reason Pro vider Source Sep 12, 2024 09:30 AM Outpatient Encounter POLYTRAUMA/TBI IND E Encounter Template Text not used by [place] Plan of Treatment: Future Appointments (+ 6 months) and Future Tests (+/- 45 days) The Plan of Treatment section includes future care activities for the patient from all [place] treatmentfacilities. This section includes future appointments and future orders which are active, pending or scheduled. Future Appointments This section includes appointments that were scheduled to occur 6 months from the date of the Encounter, up to a maximum of 20 appointments. The data comes from all [place] treatment facilities. Appointment Date/Time Appointment Type Appointme nt Facility Name Sep 19, 2024 01:00 PM AMBULATORY - NONE [facility] Oct 04, 2024 09:00 AM AM[facility]ULATORY - [facility] Oct 10, 2024 09:30 AM [facility]ORY - [facility] Oct 25, 2024 10:00 AM [facility] [place] [facility] Oct 25, 2024 05:10 PM AMBULATORY - REHAB MED[facility] Nov 15, 2024 12:45 PM AM[facility]ORY - NONE [place] [facility] Nov 22, 2024 09:30 AM [place] [place]ONE [place] [facility] Nov 22, 2024 10:30 AM AMBULATORY - MEDICINE [facility] Nov 25, 2024 09:30 AM AMBULATORY - SURGERY [facility] Nov 26, 2024 09:29 AM [facility] Nov 30, 2024 11:00 AM [place] [place] [facility] Dec 02, 2024 08:00 AM AMBULATORY - REHAB MEDICIN [facility] Dec 09, 2024 08:30 AM [place]ORY - [place]ONE [place] [facility] Dec 09, 2024 09:30 AM AM[place] [place]ONE [place] [facility] Dec 09, 2024 10:30 AM [place] [place]ONE [place] [facility] Dec 09, 2024 10:45 AM [place] [facility] Dec 13, 2024 01:00 PM AMBULATORY - REHAB [facility] Dec 16, 2024 07:00 AM [place]ORY [place]ONE [place] [facility] Dec 21, 2024 10:00 AM AMBULATORY - REHAB MEDICIN E [facility] Dec 22, 2024 11:00 AM AMBULATORY - SURGERY [facility] Active, Pending, and Scheduled Orders This section includes a listing of several types of active, pending, and scheduled orders, including clinic medications orders, diagnostic test orders, procedure orders and consult orders; where the start date of the order is 45 days before the date of the Encounter or 45 days after the date of theEncounter. The data comes from all [place] treatment [facility]. Test Date/Time Test Type Test Details Facility Name Oct 25, 2024 12:00 AM Laboratory - Chemi stry Order CBC & DIFF BLOOD ONCO SP ONCE [facility] Lab Results: +/- 30 days of [...] Range Comment Aug 23, 2024 03:[address] [facility] COVID-19 AND FLU/RSV DIAG PANEL(CEPHEID) Specimen Typ e: NASOPHARYNGEAL Comment: Medifyheid GeneXpert (618) Ordering Provider: RANDAL CHAMBERLAIN Report Released Date/Time: Aug 23, 2024 03:43 PM Reporting Lab: [facility] [id number] Performing Lab: [facility] [id number] COVID-19 (CEPHEID) Not Detected Not Detected INFLUENZA A (PCR) Not Detected Not Detected INFLUENZA B (PCR) Not Detected Not Detected RSV (PCR) Not Detected Not Detected Aug 23, 2024 03:[address] [facility] HCG, QUAL Specimen Type: URINE Comment: HRsoftid GeneXpert (618) Ordering Provider: RANDAL CHAMBERLAIN Report Released Date/Time: Aug 23, 2024 03:47 PM Reporting Lab: [facility] [phone] Performing Lab: [facility] [phone] HCG, QUAL NEGATIVE -neg- Aug 23, 2024 03:[address] [facility] URINALYSIS Specimen Type: URINE No comment entered. Ordering Provider: RANDAL CHAMBERLAIN Report Released Date/Time: Aug 23, 2024 03:43 PM Reporting Lab: [facility] [id number] Performing Lab: [facility] [phone] URINE COLOR LIGHT-YELLOW SPECIFIC GRAVITY 1.014 1.003-1.03 [...] and tobacco- related health factors from the [facility] where the Encounter took place. Current Smoking Status This section includes the most current smoking, or tobacco-related health factor, from the [facility] the [facility]. Date/Time Current Smoking Status Comment Srini ity Nov 27, 2023 03:30 PM VA-TOBACCO QUIT 5 TO < [address] [facility] Tobacco Use History This section includes a history of the smoking, or tobacco-related health factors, that were collected on or before the date of the Encounter. The data comes from the [place] facility where the Encounter took place. Date/Time Smoking Status/Tobacco Use Comment F acility Nov 27, 2023 03:30 PM VA-TOBACCO QUIT 5 TO < [address] [facility] Jan 14, 2023 09:03 AM VA-TOBACCO FORMER USER [facility] Jan 14, 2023 09:03 AM VA-TOBACCO QUIT 5 TO < [address] [facility] Radiology Reports: +/- 30 [...] the Encounter. The data comes from all [place] treatment facilities. Date/Time Radiology Report Provider Source Sep 19, 2024 12:[address] (CAP) CHEST/ABD /PELVIS (P): AWAIS PADILLA [id number] -1990 F Exm Date: SEP 19, 2024@12:58 Req Phys: KURT NEWELL Pat Loc: [facility] (Req'g Loc) Img Loc: CT IMAGING Service: Unknown Screen: [place] [address] (Case [id number] COMPLETE) CT (CAP) CHEST W CONTRAST (CT Detailed) CPT:67904 Contrast Media : Non-ionic Iodinated Reason for Study: History of splenomegaly (Case 465 COMPLETE) CT (CAP) ABDOMEN/PELVIS W CONTRAS(CT Detailed) CPT:14967 Contrast Media : Non-ionic Iodinated Clinical History: [place] IS NOT under investigation for COVID-19 or is COVID-19 negative Defer to radiologist for final protocol. History of splenomegaly Responsible provider name and phone number to notify for critical findings if other than user placing the order and pager listed below: User placing orders pager: [phone] LAST 3: Collection DT Specimen Test Name [...] 19, 2024 Date Verified: SEP 19, 2024 Vein Access Technician E-Sig:/ES/WOLFGANG MILLER DO Report: EXAMINATION: CT (CAP) CHEST W CONTRAST, CT (CAP) ABDOMEN/PELVIS W CONTRAST PROVIDED CLINICAL INFORMATION: Reason for Study: History of splenomegaly [place] IS NOT under investigation for COVID-19 or is COVID-19 negative Defer to radiologist for final protocol. History of splenomegaly Responsible provider name and phone number to notify for critical findings if other than user placing the order and pager listed below: User placing orders pager: [phone] LAST 3: Collection DT Specimen History of [...] Primary Interpreting Staff: WOLFGANG MILLER DO, RADIOLOGIST (Vein Access Technician) /WOLFGANG LORENZ [facility] Aug 23, 2024 04:06 PM CHEST 2 VIEWS PA A [place] LAT: AWAIS PADILLA [id number] -1990 F Exm Date: AUG 23, 2024@16:06 Req Phys: KURTRANDAL ZAMBRANO Loc: [facility] (Re Img Loc: MAIN X-RAY Service: Unknown Screen: [place] [address] (Case [id number] COMPLETE) CHEST 2 VIEWS PA AND LAT (RAD Detailed) CPT:18819 Reason for Study: same Clinical History: IS under investigation (PUI) for COVID-19 or is COVID-19+ Cough x 1 day Responsible provider name and phone number to notify for critical findings if other than user placing the order and pager listed below: User placing orders pager: LAST CREATININE [phone] (07/24/24) Report Status: Verified Date Reported: AUG 23, 2024 Date Verified: AUG 23, 2024 Vein Access Technician E-Sig:/ES/CODY CASTILLO MD Report: CHEST 2 VIEWS PA AND LAT 08/23/2024 INDICATION: same COMPARISON: None. FINDINGS: Heart and pulmonary vasculature are within normal limits for size. Lungs are clear. Bones are unremarkable. Impression: No visible acute cardiopulmonary disease. Primary Interpreting Staff: CODY CASTILLO MD, RADIOLOGIST (Vein Access Technician) /CODY RIOS [facility] Pathology Reports: +/- 30 days of [...] the Encounter. The data comes from all [place] treatment facilities. Date/Time Pathology Report Provider Source Aug 23, 2024 03:57 PM LR MICROBIOLOGY RE PORT: Reporting Lab: [facility] [CLIA# [id number]] [place] [address] Accession [UID]: [id number] [[id number]] Received: Aug 23, 2024@15:57 Collection sample: URINE Collection date: Aug 23, 2024 15:57 Provider: RANDAL CHAMBERLAIN Comment on specimen: RECEIVED IN STERILE CUP Test(s) ordered: CULTURE & SUSCEPTIBILITY...... completed: Aug 25, 2024 * BACTERIOLOGY FINAL REPORT => Aug 25, 2024 07:44 TECH CODE: [id number] CULTURE RESULTS: LESS THAN 10,000 CFU/ML Bacteriology Remark(s): THIS REPORT IS FINAL =--=--=--=--=--=--=--=--=--=--=--=- -=--=--=--=--=--=--=--=--=--=--=--= --=--=-- Performing Laboratory: Bacteriology Report Performed By: [facility] [CLIA# [id number]] [place] [address] [facility]
--- OUTSIDE RECORDS SUMMARY | 2025-01-11 10:10 | XMS_ITS | Encounter Summary ---
Author Name [facility] [place] Organization [facility] [place] Address [address] [place] [address] Care Team Providers Care Home Health Rn Name Role Phone LONA CINDY Primary Care Provider Unavail able Selected Encounter This section includes the information on record at [place] for the Encounter. Date/Time Encounter Type Encounter Description Reason Pro vider Source February 26, 2024 09:00 AM Outpatient Encounter PHYSICAL THERAPY IHE Encounter Template Text not used by [place] [...] Appointment Type Appointme nt Facility Name March 02, 2024 06:00 [facility] March 03, [facility]24 02:00 PM [facility]UL[facility] - RE[facility] March 10, 2024 11:50 AM [facility] Mar 22, 2024 09:00 AM AMBULATORY - RE[facility] Mar 22, 2024 10:06 AM [place] [facility] Mar 22, 2024 11:54 AM AM[place]ONE [place] [facility] Mar 22, 2024 01:30 PM [place] [facility] Mar 22, 2024 03:00 PM [facility] [place] [facility] Apr 07, 2024 04:45 PM [facility] [place] [facility] Apr 11, 2024 09:30 AM [facility] Apr 26, 2024 09:00 AM [facility] [place] [facility] Apr 26, 2024 10:00 AM [facility] Apr 28, 2024 02:00 PM [facility]ULAT[facility] - [facility] May 03, 2024 09:00 AM [facility] May 04, 2024 03:00 PM AM[facility]ULAT[facility]IN [facility] May 09, 2024 10:30 AM [facility] May 13, 2024 05:20 PM [facility]ULAT[facility]IN [facility] May 17, 2024 04:00 PM AMBULATORY - REHAB MEDICIN [facility] May 19, 2024 05:37 PM [facility] May 27, 2024 05:20 PM AMBULATORY - REHAB MEDICIN [facility] Active, Pending, and Scheduled Orders This section includes a listing of several types of active, pending, and scheduled orders, including clinic medications orders, diagnostic test orders, procedure orders and consult orders; where the start date of the order is 45 days before the date of the Encounter or 45 days after the date of theEncounter. The data comes from all [facility]. Test Date/Time Test Type Test Details Facility Name Jan 20, 2024 12:00 AM Laboratory - Blood Bank Order TYPE & SCREEN - LAB BLOOD [facility] Jan 28, 2024 12:00 AM Laboratory - Blood Bank Order TYPE & SCREEN - LAB BLOOD [facility] Lab Results: +/- 30 days of the [...] Range Comment Mar 22, 2024 02:49 PM [facility] HEMOGLOBIN A1C Specimen Type: BLOOD Comment: [...] Mar 22, 2024 01:53 PM Reporting Lab: [facility] [address] Performing Lab: [facility] [address] HEMOGLOBIN A1C 4.7 4.0-6.0 Mar 22, 2024 02:49 PM [facility] TSH W/REFLEX TO FREE T4 Specimen Type: PLASMA No comment entered. Ordering Provider: JOHN NUGENT Report Released Date/Time: Mar 22, 2024 01:53 PM Reporting Lab: [facility] [address] Performing Lab: [facility] [address] TSH 1.38 u[IU]/mL 0.35-4.94 Mar 22, 2024 12:58 PM [facility] FINGERSTICK GLUCOSE Specimen Type: BLOOD No comment entered. Ordering Provider: JOHN NUGENT Report Released Date/Time: Mar 22, 2024 01:31 PM Reporting Lab: [facility] [address] Performing Lab: [facility] [address] FINGERSTICK GLUCOSE 11 mg/dL LL 70-100 Mar 22, 2024 11:10 AM [facility] [id number] Specimen Type: FLUID Comment: No [id number] rin observed on immunofixation. This result suggests little or no CSF is present in the fluid submitted. Ordering Provider: JAZMIN LYNN Report Released Date/Time: Mar 22, 2024 10:53 AM Reporting Lab: [facility] [address] Performing Lab: [facility] [address] [id number] RIN NEGATIVE NEGATIVE March 10, 2024 01:08 PM [facility] HCG, QUAL Specimen Type: URINE No comment entered. Ordering Provider: STEFFI SOW Report Released Date/Time: March 10, 2024 12:52 PM Reporting Lab: [facility] [address] Performing Lab: [facility] [address] HCG, QUAL NEGATIVE March 10, 2024 01:08 PM [facility] URINALYSIS Specimen Type: URINE No comment entered. Ordering Provider: STEFFI SOW Report Released Date/Time: March 10, 2024 12:52 PM Reporting Lab: [facility] [address] Performing Lab: [facility] [address] URINE COLOR COLORLESS SPECIFIC GRAVITY 1.008 1.003-1.03 [...] NEGATIVE NEGATIVE March 10, 2024 12:29 PM [facility] EXTRA BLUE TUBE Specimen Type: PLASMA No comment entered. Ordering Provider: STEFFI SOW Report Released Date/Time: March 10, 2024 01:03 PM Reporting Lab: [facility] [address] Performing Lab: [facility] [address] EXTRA BLUE TUBE RECEIVED March 10, 2024 12:29 PM [facility] MAGNESIUM Specimen Type: PLASMA No comment entered. Ordering Provider: STEFFI SOW Report Released Date/Time: March 10, 2024 12:52 PM Reporting Lab: [facility] [address] Performing Lab: [facility] [address] MAGNESIUM 1.8 mg/dL 1.6-2.6 March 10, 2024 12:29 PM [facility] EXTRA GOLD GEL TUBE Specimen Type: SERUM No comment entered. Ordering Provider: STEFFI SOW Report Released Date/Time: March 10, 2024 01:03 PM Reporting Lab: [facility] [address] Performing Lab: [facility] [address] EXTRA GOLD GEL TUBE RECEIVED March 10, 2024 12:29 PM [facility] CBC & DIFF Specimen Type: BLOOD Comment: Automated Differential Performed Ordering Provider: STEFFI SOW Report Released Date/Time: March 10, 2024 12:52 PM Reporting Lab: [facility] [address] Performing Lab: [facility] [address] WBC 3.56 10*3/uL L 4.0-11.0 RBC 4.13 [...] 10*3/uL 0-0.5 ABS BASO 0.02 10*3/uL 0-0.2 IG(META,MYELO,P RO) 0.3 ABS IMMATURE GRAN 0.01 10*3/uL 0-0.1 March 10, 2024 12:29 PM [facility] COMPREHENSIVE METABOLIC PANEL+MG Specimen Type: PLASMA No comment entered. Ordering Provider: STEFFI SOW Report Released Date/Time: March 10, 2024 12:52 PM Reporting Lab: [facility] [address] Performing Lab: [facility] [address] CREATININE 0.7 mg/dL 0.5-1.0 UREA NITROGEN 10 [...] >90 >60 February 23, 2024 10:06 AM [facility] COMPREHENSIVE METABOLIC PANEL+MG Specimen Type: PLASMA No comment entered. Ordering Provider: KURT NEWELL Report Released Date/Time: Jan 28, 2024 02:09 PM Reporting Lab: [facility] [address] Performing Lab: [facility] [address] CREATININE 0.7 mg/dL 0.5-1.0 UREA NITROGEN 10 [...] >90 >60 February 23, 2024 10:06 AM [facility] CBC & DIFF Specimen Type: BLOOD Comment: Automated Differential Performed Ordering Provider: KURT NEWELL Report Released Date/Time: Jan 28, 2024 02:09 PM Reporting Lab: [facility] [address] Performing Lab: [facility] [address] WBC 3.46 10*3/uL L 4.0-11.0 RBC 4.46 [...] 10*3/uL 0-0.5 ABS BASO 0.03 10*3/uL 0-0.2 IG(META,MYELO,P RO) 0.3 ABS IMMATURE GRAN 0.01 10*3/uL 0-0.1 Feb 07, 2024 12:52 PM [facility] COMPREHENSIVE METABOLIC PANEL+MG Specimen Type: PLASMA No comment entered. Ordering Provider: THOMAS MEDEIROS Report Released Date/Time: Feb 07, 2024 12:38 PM Reporting Lab: [facility] [address] Performing Lab: [facility] [address] CREATININE 0.7 mg/dL 0.5-1.0 UREA NITROGEN 9 [...] >90 >60 Feb 07, 2024 12:52 PM [facility] COVID-19 DIAGNOSTIC PANEL (BIOFIRE) Specimen Type: NASOPHARYNGEAL Comment: Biofire Torch (618) Ordering Provider: THOMAS MEDEIROS Report Released Date/Time: Feb 07, 2024 12:38 PM Reporting Lab: [facility] [address] Performing Lab: [facility] [address] C PNEUMONIAE PCR NOT DETECTED NOT DETECTED M PNEUMONIAE PCR NOT DETECTED NOT DETECTED ADENOVIRUS-PCR NOT DETECTED NO T DETECTED H METAPNEUMOVIR PCR NOT DETECTED NOT DETECTED H RHIN/ENTEROVIR PCR DETECTED H NOT DETECTED INFLUENZA A PCR NOT DETECTED N OT DETECTED INFLUENZA B PCR NOT DETECTED N OT DETECTED RSV PCR NOT DETECTED NOT DETECTED [...] V4 PCR NOT DETECTED NOT DETECTED B PARAPERTUS(IS10 01) NOT DETECTED NOT DETECTED B PERTUSSIS(PTXP) NOT DETECTED NOT DETECTED RESPIRATORY INTERP Nucleic acid of specified pathogen(s) IDENTIFIED COVID-19 DIAG (BIOF) NOT DETECTED NOT DETECTED Feb 07, 2024 12:52 PM [facility] CBC & DIFF Specimen Type: BLOOD Comment: Automated Differential Performed Ordering Provider: THOMAS MEDEIROS Report Released Date/Time: Feb 07, 2024 12:38 PM Reporting Lab: [facility] [address] Performing Lab: [facility] [address] WBC 3.49 10*3/uL L 4.0-11.0 RBC 3.74 [...] 10*3/uL 0-0.5 ABS BASO 0.04 10*3/uL 0-0.2 IG(META,MYELO,P RO) 0.6 ABS IMMATURE GRAN 0.02 10*3/uL 0-0.1 Feb 07, 2024 12:52 PM [facility] LIPASE Specimen Type: PLASMA No comment entered. Ordering Provider: THOMAS MEDEIROS Report Released Date/Time: Feb 07, 2024 12:38 PM Reporting Lab: [facility] [address] Performing Lab: [facility] [address] LIPASE 20 U/L <60 Feb 07, 2024 12:52 PM [facility] HCG, QUAL Specimen Type: URINE No comment entered. Ordering Provider: THOMAS MEDEIROS Report Released Date/Time: Feb 07, 2024 12:38 PM Reporting Lab: [facility] [address] Performing Lab: [facility] [address] HCG, QUAL NEGATIVE Feb 07, 2024 12:52 PM [facility] URINALYSIS Specimen Type: URINE No comment entered. Ordering Provider: THOMAS MEDEIROS Report Released Date/Time: Feb 07, 2024 12:38 PM Reporting Lab: [facility] [address] Performing Lab: [facility] [address] URINE COLOR LIGHT-YELLOW SPECIFIC GRAVITY 1.017 1.003-1.03 5 URINE BILIRUBIN NEGATIVE NEGATIVE URINE KETONES NEGATIVE NEGATIVE URINE GLUCOSE NEGATIVE mg/dL URINE PROTEIN NEGATIVE mg/dL URINE PH 6.0 5.0-8.0 URINE WBC/HPF 1 /[HPF] 0-7 URINE BACTERIA NONE SEEN URINE RBC/HPF 1 /[HPF] 0-3 APPEARANCE CLEAR SQUAMOUS EPITHELIAL 11 /[HPF] URINE BLOOD NEGATIVE NEGATIVE URINE NITRITE NEGATIVE NEGATIVE LEUKOCYTE ESTERASE NEGATIVE NEGATIVE Jan 28, 2024 01:03 PM [facility] [place] ANTIBODY PANEL COMP Specimen Type: SERUM Comment: .E-D IGG:REFERENCE RANGE: <9.00 U/mL .E-D IGG: U/mL Interpretation .E-D IGG: -- .E-D IGG: <9.00 Negative .E-D IG.00 - 10.99 Equivocal .E-D IGG: >10.99 Positive .VCA IGM:REFERENCE RANGE: <36.00 U/mL .VCA IGM: U/mL Interpretation .VCA IGM: -- .VCA IGM: <36.00 Negative .VCA IGM:36.00 - 43.99 Equivocal .VCA IGM: >43.99 Positive .NUC IGG:REFERENCE RANGE: <18.00 U/mL .NUC IGG: U/mL Interpretation .NUC IGG: -- .NUC IGG: <18.00 Negative .NUC IG.00 - 21.99 Equivocal .NUC IGG: >21.99 Positive .VCA IGG:REFERENCE RANGE: <18.00 U/mL .VCA IGG: U/mL Interpretation .VCA IGG: -- .VCA IGG: <18.00 Negative .VCA IG.00 - 21.99 Equivocal .VCA IGG: >21.99 Positive .VCA IGG:Test Performed by [facility], .VCA IGG:appening [facility], .VCA IG [place], [place] .VCA IGG:Carlin Garay M.D., Ph.D., Director of Laboratories .VCA IGG: , CLIA [id number] Ordering Provider: KURT NEWELL Report Released Date/Time: Jan 21, 2024 04:17 PM Reporting Lab: [place] [address] Performing Lab: [address] .EBV VCA Ab IgG 79.10 H SEE BELOW .EBV EARLY-D Ab IgG <9.00 SEE BELOW .EBV NUCLEAR Ab IgG 137.00 H SEE BELOW .EBV VCA Ab IgM 42.80 H SEE BELOW Jan 28, 2024 01:03 PM [facility] JAK2 PANEL Specimen Type: BLOOD No comment entered. Ordering Provider: KURT NEWELL Report Released Date/Time: Jan 25, 2024 12:48 PM Reporting Lab: [place] [address] Performing Lab: [place] [address] .JAK2 0% JAK2 V617F ALLELE BURDEN JAK2 INTERPRETATION MUTATION NOT DETECTED Jan 28, 2024 01:03 PM [facility] LAMOTRIGINE Specimen Type: SERUM Comment: This test was developed and its analytical performance characteristics have been determined by appening [place], [place]. It has not been cleared or approved by the U.S. Food and Drug Administration. This assay has been validated pursuant to the CLIA regulations and is used for clinical purposes. Test Performed by [facility], [place], [address] [place] [address] Carlin Garay M.D., Ph.D., Director of Laboratories , CLIA [id number] Ordering Provider: KURT NEWELL Report Released Date/Time: Jan 21, 2024 04:39 PM Reporting Lab: [place] [address] Performing Lab: [address] LAMOTRIGINE 5.2 ug/mL 2.5-15.0 Jan 28, 2024 01:03 PM [facility] CMV PCR QUANTITATION,PLASMA Specimen Type: PLASMA No comment entered. Ordering Provider: KURT NEWELL Report Released Date/Time: Jan 21, 2024 04:17 PM Reporting Lab: [facility] [address] Performing Lab: [facility] [address] CMV PCR QUANTITATIVE NEGATIVE [IU]/mL Negative CMV PCR INTERP CMV DNA NOT DETECTED Jan 28, 2024 01:03 PM [facility] HUGH WITH REFLEX TO MARIA ELENA/DNA Specimen Type: SERUM No comment entered. Ordering Provider: KURT NEWELL Report Released Date/Time: Jan 21, 2024 04:21 PM Reporting Lab: [facility] [address] Performing Lab: [facility] [address] .ANTINUCLEAR JOSE MANUEL NEGATIVE Negative Jan 28, 2024 01:03 PM [facility] HIV AG/AB SCREEN Specimen Type: SERUM No comment entered. Ordering Provider: KURT NEWELL Report Released Date/Time: Jan 21, 2024 04:17 PM Reporting Lab: [facility] [address] Performing Lab: [facility] [address] HIV AG/AB SCREEN NEGATIVE NEGATIVE Jan 28, 2024 01:03 PM [facility] BCR-ABL1 MAJOR QT PCR Specimen Type: BLOOD No comment entered. Ordering Provider: KURT NEWELL Report Released Date/Time: Jan 25, 2024 12:48 PM Reporting Lab: [facility] [address] Performing Lab: [facility] [address] BCR-ABL1 MAJOR QT 0.0 <0 BCR-ABL1 INTERP BCR-ABL1 calvin or fusion transcript NOT DETECTED Jan 28, 2024 01:03 PM [facility] COMPREHENSIVE METABOLIC PANEL+MG Specimen Type: PLASMA No comment entered. Ordering Provider: KURT NEWELL Report Released Date/Time: Jan 21, 2024 04:17 PM Reporting Lab: [facility] [address] Performing Lab: [facility] [address] CREATININE 0.7 mg/dL 0.5-1.0 UREA NITROGEN 9 mg/dL 7-20 GLUCOSE 105 mg/dL H 70-100 SODIUM 139 mmol/L 136-145 POTASSIUM 3.5 mmol/L 3.5-5.1 CHLORIDE 106 mmol/L 98-107 CO2 28 mmol/L 22-29 CALCIUM 8.2 mg/dL L 8.4-10.2 PROTEIN,TOTAL 7.1 g/dL 6.0-8.3 ALBUMIN 4.1 g/dL 3.5-5.2 BILIRUBIN, TOTAL 0.5 mg/dL 0.2-1.2 MAGNESIUM 2.2 mg/dL 1.6-2.6 ANION GAP 5 mmol/L 5-15 ALKALINE PHOSPHATASE 74 U/L 40-150 ALT/SGPT 17 U/L <55 AST/SGOT 18 U/L <34 .CREAT EGFR(CKD-EPI) >90 >60 Jan 28, 2024 01:03 PM [facility] CBC & DIFF Specimen Type: BLOOD Comment: Manual Differential Performed Ordering Provider: KURT NEWELL Report Released Date/Time: Jan 21, 2024 04:17 PM Reporting Lab: [facility] [address] Performing Lab: [facility] [address] WBC 3.49 10*3/uL L 4.0-11.0 RBC 3.84 10*6/uL L 4.0-5.4 HGB 11.8 g/dL 11.5-16 HCT 34.3 L 34.5-48 MCV 89.3 fL 80-100 MCH 30.7 pg 27-33 MCHC 34.4 g/dL 32.0-37.5 PLT 199 10*3/uL 150-400 MPV 10.2 fL 7.4-10.4 NEUT 68.0 LYMPHS 22.0 RDW 11.9 11.5-14.5 MONO 3.0 EOSINO 2.0 BASO 2.0 MYELO 3.0 ABS LYMPH 0.77 10*3/uL L 1.0-4.0 ABS MONO 0.10 10*3/uL 0.1-1.0 ABS NEUT 2.37 10*3/uL 2.0-7.7 ABS EOS 0.07 10*3/uL 0-0.5 ABS BASO 0.07 10*3/uL 0-0.2 ABS MYELO 0.10 10*3/uL .RBC MORPHOLOGY PRESENT Social History: Smoking Status (Most current) and [...] 27, 2023 03:30 PM [facility]-TOBACCO FORMER USER [facility] Tobacco Use History This section includes a history of the smoking, or tobacco-related health factors, that were collected on or before the date of the Encounter. The data comes from the [place] facility where the Encounter took place. Date/Time Smoking Status/Tobacco Use Comment F acility Nov 27, 2023 03:30 PM VA-TOBACCO QUIT 5 TO < 15 YRS [facility] Jan 14, 2023 09:03 AM VA-TOBACCO FORMER USER [facility] Jan 14, 2023 09:03 AM VA-TOBACCO QUIT 5 TO < 15 YRS [facility] Radiology Reports: +/- 30 days of [...] 11:[address] HEAD (P): AWAIS PADILLA [id number] -1990 F Exm Date: MAR 22, 2024@11:44 Req Phys: JAZMIN LYNN Loc: [facility] EMERGENCY DEPT WALK-IN (Re Img Loc: CT IMAGING Service: Unknown Screen: [place] [address] (Case [id number] COMPLETE) CT HEAD/BRAIN W/O CONTRAST (CT Detailed) CPT:64304 Reason for Study: headache, clear liquid flowing [...] PLASMA .CREAT EGFR(CKD-E >90 Ref: >=60 Allergies: ([place] only) METOPROLOL (Jan 14, 2023) REGLAN (Jan 14, 2023) Defer to radiologist for final CT protocol. Contact number for responsible provider who can be reached for any questions or notifications of critical findings: [phone] Per Joint Commission Standards, by signing this diagnostic imaging request the ordering provider confirms they have considered patients age and recent imaging history. Report Status: Verified Date Reported: MAR 22, 2024 Date Verified: MAR 22, 2024 Marketing Rep E-Sig:/ES/WOLFGANG MILLER DO Report: EXAMINATION: CT HEAD/BRAIN [...] Primary Interpreting Staff: WOLFGANG MILLER DO, RADIOLOGIST (Marketing Rep) /KMB WOLFGANG MILLER [facility] February 22, 2024 10:[address] (AP) ABDOMEN/PE LVIS (P): VALERIEARMENADRIEN MODESTO [id number] -1990 F Exm Date: FEBRUARY 22, 2024@10:24 Req Phys: KURT NEWELL Loc: [facility] (Req'g Loc) Img Loc: CT IMAGING Service: Unknown Screen: [place] [address] (Case [id number] COMPLETE) CT (AP) ABDOMEN/PELVIS W CONTRAST(CT Detailed) CPT:93643 Contrast Media : Non-ionic Iodinated Reason for Study: LUQ pain, splenomegaly Clinical History: Patient with LUQ abdominal pain splenomegaly and R meseteric adenitis, evaluation for progression Responsible provider name and phone number to notify for critical findings if other than user placing the order and pager listed below: User placing orders pager: [phone] LAST 3: Collection DT Specimen Test Name [...] 22, 2024 Date Verified: FEBRUARY 22, 2024 Marketing Rep E-Sig: Report: CT (AP) ABDOMEN/PELVIS W CONTRAST [PRINTSET] HISTORY: LUQ pain, splenomegaly COMPARISON: 01/19/2024 TECHNIQUE: CT of the abdomen and pelvis with multiplanar reformats was performed at the local [place] facility. A contrast-enhanced series was obtained in the portal venous phase. 833 images were received by the [place] National Teleradiology Program (NTP) for interpretation. RADIATION [...] explain symptoms. READING PHYSICIAN: Juan Jose Salinas -[phone] 02/22/2024 15:56 PDT [facility] National Teleradiology Program [phone] (For Medical Practitioner Use Only) Attention Patients / Veterans: If you have questions or concerns about these test results, please contact your ordering provider or primary care team. Primary Interpreting Staff: RADIOLOGY,OUTSIDE SERVICE, Staff Physician / RADIOLOGY,OUTSIDE SERVICE [facility] Pathology Reports: +/- 30 days of [...] comes from all [place] treatment facilities. Date/Time Pathology Report Provider Source Feb 03, 2024 04:16 PM [facility] SURGICAL PATHOL OGY REPORT: LOCAL TITLE: LR SURGICAL PATHOLOGY REPORT STANDARD TITLE: PATHOLOGY REPORT DATE OF NOTE: FEB 03, 2024@16:16:14 ENTRY DATE: FEB 03, 2024@16:16:14 AUTHOR: CARITO BERKOWITZ COSIGNER: URGENCY: STATUS: COMPLETED $APHDR Reporting Lab: [facility] [CLIA# [id number]] [place] [address] - - - - - - - [...] - - - PATHOLOGY REPORT Accession No. -CT [id number] - - - - - [...] ANCILLARY STUDIES SUMMARY: Sent to: Molecular Biology ([facility]) Specimen: Blood (collected 01/28/2024) Test: JAK2 V617F mutation (see MBO 0411 47) RESULT: JAK2 V617F mutation Not Detected /es/ CARITO BERKOWITZ MD STAFF PATHOLOGIST Signed Feb 03, 2024@16:16 Performing Laboratory: Surgical Pathology Report Performed By: [facility] [CLIA# [id number]] [place] [address] $FTR - - - - - - [...] - - AWAIS PADILLA STANDARD FORM 515 ID:[id number] SEX:F :1990 AGE: 33 LOC:8007 PCP: Taryn Spring /los/ CARITO BERKOWITZ MD STAFF PATHOLOGIST Signed: 02/03/2024 16:16 CARITO BERKOWITZ [facility] Encounter Notes: All associated encounter notes This section contains the clinical notes associated to the Encounter. Date/Time Encounter Note(s) Provider Source February 26, 2024 09:15 AM NO SHOW NOTE: LOCAL TITLE: NO SHOW/CANCELLATION CLINIC NOTE STANDARD TITLE: NO SHOW NOTE DATE OF NOTE: FEBRUARY 26, 2024@09:15 ENTRY DATE: FEBRUARY 26, 2024@09:15:48 AUTHOR: DAMARIS IBANEZ EXP COSIGNER: URGENCY: STATUS: COMPLETED [place] not seen for scheduled appointment due to: No Show for [facility] PT appt on 02/26/24. Given number for rescheduling and [facility] help in voicemail. Appointment Rescheduled: No Please review patient chart and medications for renewal needs (if appropriate). /los/ Damaris Ibanez PT, DPT, GCS Signed: 02/26/2024 11:39 DAMARIS IBANEZ [facility]
--- OUTSIDE RECORDS SUMMARY | 2025-01-11 10:11 | XMS_ITS | Encounter Summary ---
Author Name [place] Address [address] [place] [address] Care Team Providers Care Genetic Counsellor Name Role Phone CINDY ZAMORANO Primary Care [...] AM AMBULATORY - SURGERY [facility] Dec 23, 2024 08:00 AM AMBULATORY - REHAB MED[facility]IN [facility] Dec 28, 2024 01:00 PM AMBULATORY - REHAB MEDICIN [facility] Dec 29, 2024 10:00 AM AMBULATORY - REHAB MED[facility] Jan 02, 2025 08:30 AM AMBULATORY - REHAB MEDICIN [facility] Jan 05, 2025 01:58 PM AMBULATORY - MEDICINE [facility] Jan 06, 2025 03:00 PM AMBULATORY - REHAB MEDICIN E [facility] Jan 10, 2025 09:00 AM AMBULATORY - REHAB MEDICIN E [facility] Jan 16, 2025 10:00 AM AMBULATORY - REHAB MEDICIN E [facility] Jan 18, 2025 09:00 AM AMBULATORY - REHAB MEDICIN E [facility] Jan 23, 2025 09:00 AM AMBULATORY - REHAB MEDICIN E [facility] Jan 25, 2025 09:00 AM AMBULATORY - REHAB MEDICIN E [facility] February 21, 2025 10:00 AM AMBULATORY - NONE [facility] February 21, 2025 11:00 AM AMBULATORY - MEDICINE [facility] February 28, 2025 01:00 PM AMBULATORY - REHAB MEDICIN [facility] March 14, 2025 02:00 PM AMBULATORY - REHAB MEDICIN [facility] Apr 28, 2025 09:30 AM AMBULATORY - SURGERY [facility] Active, Pending, and Scheduled Orders This section includes a listing of several types of active, pending, and scheduled orders, including clinic medications orders, diagnostic test orders, procedure orders and consult orders; where the start date of the order is 45 days before the date of the Encounter or 45 days after the date of theEncounter. The data comes from all [place] treatment facilities. Test Date/Time Test Type Test Details Facility Name Nov 25, 2024 10:22 AM Consult Order OT OCCUPATIONAL THERAPY OUTPT VISION THERAPY Cons Trial Court [facility] Nov 30, 2024 12:00 AM Laboratory - Chemistry Order CBC BLOOD STAT SP ONCE [facility] Nov 30, 2024 12:00 AM Laboratory - Chemistry Order PROTHROMBIN TIME/INR PLASMA STAT SP [facility] Nov 30, 2024 12:00 AM Laboratory - Chemistry Order CREATININE(INCLUDES EGFR) PLASMA STAT SP ONCE [facility] Dec 01, 2024 11:53 AM Consult Order CSP PCAFC FUNCTIONAL ASSESSMENT INSTRUMENT OUTPT Cons Trial [facility] Jan 03, 2025 12:08 PM Consult Order OT OCCUPATIONAL THERAPY OUTPT HOME ACCESSIBILITY Cons Trial Court [facility] Jan 05, 2025 03:02 PM Consult Order ENT OUTPT Cons Trial Court [facility] Lab Results: +/- 30 days [...] Range Comment Dec 09, 2024 08:34 AM [facility] PROTHROMBIN TIME/INR Specimen Type: PLASMA No comment entered. Ordering Provider: FORD FRANCOIS Report Released Date/Time: Dec 06, 2024 09:29 AM Reporting Lab: [facility] [id number] Performing Lab: [facility] [address] .INR 1.1 0.8-1.1 .PT 12.9 s H 9.4-12.5 Dec 09, 2024 08:34 AM [facility] CREATININE(INCLUDES EGFR) Specimen Type: PLASMA No comment entered. Ordering Provider: FORD FRANCOIS Report Released Date/Time: Dec 06, 2024 09:29 AM Reporting Lab: [facility] [address] Performing Lab: [facility] [address] CREATININE 0.6 mg/dL 0.5-1.0 .CREAT EGFR(CKD-EPI) >90 >60 Dec 09, 2024 08:34 AM [facility] CBC & DIFF Specimen Type: BLOOD Comment: Automated Differential Performed Ordering Provider: FORD FRANCOIS Report Released Date/Time: Dec 06, 2024 09:29 AM Reporting Lab: [facility] [address] Performing Lab: [facility] [address] WBC 4.4 4.0-11.0 RBC 4.42 4.00-5.40 HGB [...] 0.0 0.0-0.1 Nov 22, 2024 09:45 AM [facility] URIC ACID Specimen Type: PLASMA No comment entered. Ordering Provider: KURT NEWELL Report Released Date/Time: Apr 26, 2024 10:33 AM Reporting Lab: [facility] [address] Performing Lab: [facility] [address] URIC ACID 5.4 mg/dL 2.5-6.2 Nov 22, 2024 09:45 AM [facility] LD,TOTAL Specimen Type: PLASMA No comment entered. Ordering Provider: KURT NEWELL Report Released Date/Time: Apr 26, 2024 10:33 AM Reporting Lab: [facility] [address] Performing Lab: [facility] [address] LD,TOTAL 194 U/L 125-220 Nov 22, 2024 09:45 AM [facility] COMPREHENSIVE METABOLIC PANEL+MG Specimen Type: PLASMA No comment entered. Ordering Provider: KURT NEWELL Report Released Date/Time: Apr 26, 2024 10:33 AM Reporting Lab: [facility] [address] Performing Lab: [facility] [address] CREATININE 0.6 mg/dL 0.5-1.0 UREA NITROGEN 12 [...] >90 >60 Nov 22, 2024 09:44 AM [facility] CBC & DIFF Specimen Type: BLOOD Comment: Automated Differential Performed Ordering Provider: KURT NEWELL Report Released Date/Time: Oct 25, 2024 10:32 AM Reporting Lab: [facility] [address] Performing Lab: [facility] [address] WBC 5.4 4.0-11.0 RBC 4.58 4.00-5.40 HGB [...] RO) 0.2 ABS IMMATURE GRAN 0.0 0.0-0.1 Social [...] 27, 2023 03:30 PM VA-TOBACCO FORMER USER [facility] Tobacco Use History This section [...] Dec 16, 2024 07:03 AM MRI-BRAIN (P): PADILLAAWAIS [id number] -1990 F Exm Date: DEC 16, 2024@07:03 Req Phys: STEPHEN FRANCOIS Pat Loc: [facility]OS[facility]G AUTOMATION MACHINE BUILDER CONSULT-A (Re Img Loc: MRI IMAGING Service: Unknown Screen: [place] [address] (Case [id number] COMPLETE) MRI BRAIN/BRAINSTEM W/O CONTRAST (MRI Detailed) CPT:56142 Reason for Study: Myelopathy Clinical History: Did the ordering provider speak with a crm consultant regarding this imaging exam?No Brain MRI without contrast Myelopathy LAST CREATININE 0.6 (11/22/24) Allergies: METOPROLOL (Jan 14, 2023) REGLAN (Jan 14, 2023) My pager number on record is: [phone]. The pager number/cell phone number above is [...] 16, 2024 Date Verified: DEC 16, 2024 Sorting Cows Worker E-Sig:/ES/SUJIT DENIS MD Report: MRI BRAIN/BRAINSTEM W/O [...] Primary Interpreting Staff: SUJIT DENIS MD, RADIOLOGIST (Sorting Cows Worker) /[facility] SUJIT DENIS [facility] Dec 09, 2024 09:[address] MYELOGRAM THORA CIC (P): AWAIS PADILLA [id number] -1990 F Exm Date: DEC 09, 2024@09:52 Req Phys: STEPHEN FRANCOIS Loc: [facility] NEUROSURG AUTOMATION MACHINE BUILDER CONSULT-A (Re Img Loc: CT IMAGING Service: Unknown Screen: [place] [address] (Case [id number] COMPLETE) CT MYELOGRAM THORACIC SPINE (CT Detailed) CPT:48022 CPT Modifiers : 59 DISTINCT PROCEDURAL SERVICE [...] PLASMA .CREAT EGFR(CKD-E >90 Ref: >=60 Allergies: ([facility]) METOPROLOL (Jan 14, 2023) REGLAN (Jan 14, 2023) Defer to radiologist for final CT protocol. User Placing Order: STEPHEN FRANCOIS L - Office Phone: My pager number on record is: [phone]. The pager number/cell phone number above is NOT correct for reporting critical results, I have entered my correct number below: My correct contact # for critial results is:neurosurgery dice person Trainees only: Enter your staff provider's info here: Per Joint Commission Standards, by signing this diagnostic imaging request the ordering provider confirms they have considered patients age and recent imaging history. Report Status: Verified Date Reported: DEC 09, 2024 Date Verified: DEC 09, 2024 Sorting Cows Worker E-Sig:/ES/CARITO POLANCO MD Report: CT Thoracic Spine [...] Primary Interpreting Staff: CARITO POLANCO MD, RADIOLOGIST (Sorting Cows Worker) /CARITO TOLENTINO [facility] Dec 09, 2024 08:50 AM MYELOGRAM THORACIC (P): PADILLA,ARMENADRIEN MODESTO [id number] -1990 F Exm Date: DEC 09, 2024@08:50 Req Phys: STEPHEN FRANCOIS Pat Loc: [facility] NEUROSURG AUTOMATION MACHINE BUILDER CONSULT-A (Re Img Loc: MAIN X-RAY Service: Unknown Screen: [place] [address] (Case [id number] COMPLETE) MYELOGRAM THORACIC VIA LUMBAR INJ(RAD Detailed) CPT:93830 Reason for Study: Eval for arachnoid web or cyst at T6 level Clinical History: myelopathy Outside hosptial Thoracic mri w wo contrast is loaded into [facility]. Please do comparison . thank you Responsible provider name and phone number to notify for critical findings if other than user placing the order and pager listed below: User placing orders pager: [phone] Neurosurgery dice person LAST CREATININE 0.6 (11/22/24) Report Status: Verified Date Reported: DEC 09, 2024 Date Verified: DEC 09, 2024 Sorting Cows Worker E-Sig:/ES/CARITO POLANCO MD Report: PROCEDURE: Lumbar puncture [...] CARITO POLANCO MD, RADIOLOGIST ([facility]) /CARITO TOLENTINO [facility] Nov 22, 2024 07:12 PM NON VA MRI THORACI C SPINE: AWAIS PADILLA [id number] -1990 F Exm Date: NOV 22, 2024@19:12 Req Phys: CINDY ZAMORANO Pat Loc: [facility] XRAY GENERAL AM (Req'g Loc Img Loc: OUTSOURCE MRI Service: Unknown Screen: Patient answered no (Case [id number] COMPLETE) NON [facility] MRI THORACIC SPINE (MRI Detailed) CPT:12192 Reason for Study: OUTSIDE STUDY Clinical History: [...] Diagnostic Code: VERIFIED BY: / *ELECTRONICALLY FILED* [facility] Encounter Notes: All associated encounter notes This section contains the clinical notes associated to the Encounter. Date/Time Encounter Note(s) Provider Source Dec 21, 2024 03:23 PM NO SHOW NOTE: LOCAL TITLE: NO SHOW/CANCELLATION CLINIC NOTE STANDARD TITLE: NO SHOW NOTE DATE OF NOTE: DEC 21, 2024@15:23 ENTRY DATE: DEC 21, 2024@15:23:59 AUTHOR: SHASHI ZARATE COSIGNER: URGENCY: STATUS: COMPLETED [place] not seen for scheduled appointment due to: No Show Appointment Rescheduled: Yes Please review patient chart and medications for renewal needs (if appropriate). /los/ SHASHI ZARATEOTR/L,BCPR,DRS OCCUPATIONAL THERAPIST Signed: 12/21/2024 15:24 SHASHI ZARATE [facility]
--- OUTSIDE RECORDS SUMMARY | 2025-01-11 10:11 | XMS_ITS | Encounter Summary ---
Author Name [facility] [place] Address [address] [place] [id number] Care Team Providers Care Putty Mixer And Applier Name Role Phone CINDY ZAMORANO Primary Care Provider Unavail able Selected Encounter This section includes the information on record at [place] for the Encounter. Date/Time Encounter Type Encounter Description Reason Pro vider Source IHE Encounter Template Text not used by [place]
--- OUTSIDE RECORDS SUMMARY | 2025-01-11 10:11 | XMS_ITS | Encounter Summary ---
Author Name [facility] [place] Address [address] [place] [address] Care Team Providers Care Milk Receiver Tank Truck Name Role Phone CINDY ZAMORANO Primary Care Provider Unavail able Selected Encounter This section includes the information on record at [place] for the Encounter. Date/Time Encounter Type Encounter Description Reason Provider Source Oct 04, 2024 09:00 AM CASE MANAGEMENT CAREGIVER SUPPORT PROGRAM ICD-10-CM Z87.820 Personal history of traumatic brain injury MANIAKOSUA CEBALLOS [facility] Encounter Template Text not used by [place] Assessments - Encounter Diagnoses This section includes the primary and secondary diagnoses documented for the Encounter. Date/Time Primary/Secondary Diagnosis Diagnosis Name Provider Source Jan 03, 2025 09:56 AM PRIMARY Personal history of traumatic brain [facility] Plan of Treatment: [...] 09:30 AM AMBULATORY - REHAB MEDICIN E [facility] Oct 25, 2024 10:00 AM AMBULATORY - MEDICINE [facility] Oct 25, 2024 05:10 PM AMBULATORY - REHAB MEDICIN E [facility] Nov 15, 2024 12:45 PM AMBULATORY - NONE [place] [facility] [facility] Nov 22, 2024 09:30 AM [place] [facility] Nov 22, 2024 10:30 AM AMBULATORY - MEDICINE [facility] Nov 25, 2024 09:30 AM AMBULATORY - SURGERY [facility] Nov 26, 2024 09:29 AM AMBULATORY - MEDICINE [facility] Nov 30, 2024 11:00 AM AMBULATORY - SURGERY [facility] Dec 02, 2024 08:00 AM AMBULATORY - REHAB MEDICIN E [facility] Dec 09, 2024 08:30 AM [place] [facility] Dec 09, 2024 09:30 AM AMBULATORY - NONE [place] [facility] Dec 09, 2024 10:30 AM AMBULATORY - [place]ONE [place] [facility] Dec 09, 2024 10:45 AM AMBULATORY - SURGERY [facility] Dec 13, 2024 01:00 PM AMBULATORY - REHAB MEDICIN E [facility] Dec 16, 2024 07:00 [facility] Dec 21, 2024 10:00 AM AMBULATORY - REHAB MEDICIN [facility] Dec 22, 2024 11:00 AM AMBULATORY - SURGERY [facility] Dec 23, 2024 08:00 AM AMBULATORY - REHAB MEDICIN [facility] Dec 28, 2024 01:00 [facility] Active, Pending, and Scheduled Orders This section includes a listing of several types of active, pending, and scheduled orders, including clinic medications orders, diagnostic test orders, procedure orders and consult orders; where the start date of the order is 45 days before the date of the Encounter or 45 days after the date of theEncounter. The data comes from all [place] treatment [facility]. Test Date/Time Test Type Test Details Facility Name Oct 25, 2024 12:00 AM Laboratory - Chemi stry Order CBC & DIFF BLOOD ONCO SP ONCE [facility] Social History: Smoking Status (Most [...] 27, 2023 03:30 PM VA-TOBACCO FORMER USER [facility] Tobacco Use History This section includes a history of the smoking, or tobacco-related health factors, that were collected on or before the date of the Encounter. The data comes from the [place] facility where the Encounter took place. Date/Time Smoking Status/Tobacco Use Comment F acility Nov 27, 2023 03:30 PM VA-TOBACCO QUIT 5 TO < 15 YRS [facility] Jan 14, 2023 09:03 AM VA-TOBACCO FORMER USER [facility] Jan 14, 2023 09:03 AM VA-TOBACCO QUIT 5 TO < 15 YRS [facility] Radiology Reports: +/- 30 days [...] CT (CAP) CHEST/ABD /PELVIS (P): AWAIS PADILLA [id number] -1990 F Exm Date: SEP 19, 2024@12:58 Req Phys: KURT NEWELL Pat Loc: [facility] ONC [facility] (Req'g Loc) Img Loc: CT IMAGING Service: Unknown Screen: [place] [address] (Case [id number] COMPLETE) CT (CAP) CHEST W CONTRAST (CT Detailed) CPT:82585 Contrast Media : Non-ionic Iodinated Reason for Study: History of splenomegaly (Case 465 COMPLETE) CT (CAP) ABDOMEN/PELVIS W CONTRAS(CT Detailed) CPT:69362 Contrast Media : Non-ionic Iodinated Clinical History: IS NOT under investigation for COVID-19 or is COVID-19 negative Defer to radiologist for final protocol. History of splenomegaly Responsible provider name and phone number to notify for critical findings if other than user placing the order and pager listed below: User placing orders pager: [phone] LAST 3: Collection DT Specimen Test Name [...] 19, 2024 Date Verified: SEP 19, 2024 Drywall Sander E-Sig:/ES/WOLFGANG MILLER DO Report: EXAMINATION: CT (CAP) [...] pager listed below: User placing orders pager: [phone] LAST 3: Collection DT Specimen History of [...] Primary Interpreting Staff: WOLFGANG MILLER DO, RADIOLOGIST (Drywall Sander) /WOLFGANG LORENZ [facility] Encounter Notes: All associated encounter [...] COMPLETED Caregiver Support Program [facility] Wellness Contact [place] This [place] is enrolled in [place] Program of Comprehensive [place] for Family Caregivers [...] annual basis. Date of Visit: Sep The [place] was identified using the following villarreal identifiers: Full Name: AWAIS PADILLA Date of : [birth year] Full Address: [id number] [place] [address] Phone #: Email address: [email or web address] Is the above contact information in the electronic health record and the Caregiver Support Program IT system, correct? Yes Reason for contact: Routine (120-day contact) Individuals providing input include: [place] Primary Family Caregiver Method of contact: Video Telehealth Name of historian/caregiver conducting visit: Paulo Wiley [phone] Contact number for backup/emergency communication: location during visit:* Home [address] [place], [place] [address] Others present for visit with [place]'s consent: Name(s): Paulo Bateman confirms location is safe and private for visit. Telehealth Disclosure: Visit conducted by synchronous telehealth. [place] verbal consent obtained. Location/emergency number confirmed. Environment surveyed and all participants identified. Virtual conference room locked. INFORMATION is receiving care from: Primary Family Caregiver Name: Paulo Bateman Have there been any changes to the individuals living in the 's household? No Have there been any changes [...] forgot her cane at the caregiver's company [email or web address] in August and that she overtaxed herself. [...] to adequately meet the needs of the [place]? Yes Details: Discussed that the caregiver recently [...] following resources and supports: - Respite - [place] [facility] PLAN: No follow-up needed outside of regularly scheduled [facility] Wellness Contacts SUMMARY OF VISIT: CSC met with the Vet and the Primary Caregiver via [facility]VC for 32 minutes for a scheduled [facility] Wellness contact. /los/ AKOSUA SINGLETON RN REGISTERED NURSE Signed: 10/04/2024 09:55 AKOSUA SINGLETON [facility]
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
--- OUTSIDE RECORDS SUMMARY | 2025-01-11 10:11 | XMS_ITS | Encounter Summary ---
Author Name [facility] [place] Organization [facility] [place] Address [address] [place] [address] Care Team Providers Care Telegraphic Typewriter Operator Chief Name Role Phone CINDY ZAMORANO Primary Care Provider Unavail able Selected Encounter This section includes the information on record at [place] for the Encounter. Date/Time Encounter Type Encounter Description Reason Pro vider Source Dec 09, 2024 11:17 AM Outpatient Encounter TELEPHONE/NEUROLOGY IHE Encounter Template Text not used by [...] 2024 01:00 PM AMBULATORY - REHAB MEDICIN [facility] Dec 16, 2024 07:00 AM AMBULATORY - NONE [facility] Dec 21, 2024 10:00 AM AMBULATORY - REHAB MEDICIN [facility] Dec 22, 2024 11:00 AM [facility] Dec 23, 2024 08:00 AM AMBULATORY - REHAB MEDICIN E [facility] Dec 28, 2024 01:00 PM AMBULATORY - REHAB MEDICIN E [facility] Dec 29, 2024 10:00 AM AMBULATORY - REHAB MEDICIN E [facility] Jan 02, 2025 08:30 AM AMBULATORY - REHAB MEDICIN E [facility] Jan 05, 2025 01:58 PM AMBULATORY - MEDICINE [facility] Jan 06, 2025 03:00 PM AMBULATORY - REHAB MEDICIN E [facility] Jan 10, 2025 09:00 AM AMBULATORY - REHAB MEDICIN E [facility] Jan 16, 2025 10:00 AM AMBULATORY - REHAB MEDICIN E [facility] Jan 18, 2025 09:00 AM AMBULATORY - REHAB MEDICIN [facility] Jan 23, 2025 09:00 AM AMBULATORY - REHAB MEDICIN [facility] Jan 25, 2025 09:00 AM AMBULATORY - REHAB MEDICIN [facility] February 21, 2025 10:00 AM AMBULATORY - NONE [facility] February 21, 2025 11:00 AM AMBULATORY - MEDICINE [facility] February 28, 2025 01:00 PM AMBULATORY - REHAB MEDICIN [facility] March 14, 2025 02:00 PM AMBULATORY - REHAB MEDICIN [facility] Apr 28, 2025 09:30 AM AMBULATORY - SURGERY [facility] Active, Pending, and Scheduled Orders This section includes a listing of several types of active, pending, and scheduled orders, including clinic medications orders, diagnostic test orders, procedure orders and consult orders; where the start date of the order is 45 days before the date of the Encounter or 45 days after the date of theEncounter. The data comes from all [place] treatment [facility]. Test Date/Time Test Type Test Details Facility Name Oct 25, 2024 12:00 AM Laboratory - Chemistry Order CBC & DIFF BLOOD ONCO SP ONCE [facility] Nov 25, 2024 10:22 AM Consult Order OT OCCUPATIONAL THERAPY OUTPT VISION THERAPY Cons Farmworker Bulbs's Choice [facility] Nov 30, 2024 12:00 AM Laboratory - Chemistry Order CBC BLOOD STAT SP ONCE [facility] Nov 30, 2024 12:00 AM Laboratory - Chemistry Order CREATININE(INCLUDES EGFR) PLASMA STAT SP ONCE [facility] Nov 30, 2024 12:00 AM Laboratory - Chemistry Order PROTHROMBIN TIME/INR PLASMA STAT SP [facility] Dec 01, 2024 11:53 AM Consult Order CSP PCAFC FUNCTIONAL ASSESSMENT INSTRUMENT OUTPT Cons Farmworker [employer]'s Choice [facility] Jan 03, 2025 12:08 PM Consult Order OT OCCUPATIONAL THERAPY OUTPT HOME ACCESSIBILITY Cons Farmworker [employer]'s Choice [facility] Jan 05, 2025 03:02 PM Consult Order ENT OUTPT Cons Farmworker Bulbs's [facility] Lab Results: +/- 30 days of [...] Range Comment Dec 09, 2024 08:34 AM [facility] PROTHROMBIN TIME/INR Specimen Type: PLASMA No comment entered. Ordering Provider: FORD FRANCOIS Report Released Date/Time: Dec 06, 2024 09:29 AM Reporting Lab: [facility] [id number] Performing Lab: [facility] [id number] .INR 1.1 0.8-1.1 .PT 12.9 s H 9.4-12.5 Dec 09, 2024 08:34 AM [facility] CREATININE(INCLUDES EGFR) Specimen Type: PLASMA No comment entered. Ordering Provider: FORD FRANCOIS Report Released Date/Time: Dec 06, 2024 09:29 AM Reporting Lab: [facility] [id number] Performing Lab: [facility] [id number] CREATININE 0.6 mg/dL 0.5-1.0 .CREAT EGFR(CKD-EPI) >90 >60 Dec 09, 2024 08:34 AM [facility] CBC & DIFF Specimen Type: BLOOD Comment: Automated Differential Performed Ordering Provider: FORD FRANCOIS Report Released Date/Time: Dec 06, 2024 09:29 AM Reporting Lab: [facility] [id number] Performing Lab: [facility] [id number] WBC 4.4 4.0-11.0 RBC 4.42 4.00-5.40 HGB [...] 0.0 0.0-0.1 Nov 22, 2024 09:45 AM [facility] URIC ACID Specimen Type: PLASMA No comment entered. Ordering Provider: KURT NEWELL Report Released Date/Time: Apr 26, 2024 10:33 AM Reporting Lab: [facility] [id number] Performing Lab: [facility] [id number] URIC ACID 5.4 mg/dL 2.5-6.2 Nov 22, 2024 09:45 AM [facility] LD,TOTAL Specimen Type: PLASMA No comment entered. Ordering Provider: KURT NEWELL Report Released Date/Time: Apr 26, 2024 10:33 AM Reporting Lab: [facility] [phone] Performing Lab: [facility] [phone] LD,TOTAL 194 U/L 125-220 Nov 22, 2024 09:45 AM [facility] COMPREHENSIVE METABOLIC PANEL+MG Specimen Type: PLASMA No comment entered. Ordering Provider: KURT NEWELL Report Released Date/Time: Apr 26, 2024 10:33 AM Reporting Lab: [facility] [id number] Performing Lab: [facility] [id number] CREATININE 0.6 mg/dL 0.5-1.0 UREA NITROGEN 12 [...] >90 >60 Nov 22, 2024 09:44 AM [facility] CBC & DIFF Specimen Type: BLOOD Comment: Automated Differential Performed Ordering Provider: KURT NEWELL Report Released Date/Time: Oct 25, 2024 10:32 AM Reporting Lab: [facility] [id number] Performing Lab: [facility] [id number] WBC 5.4 4.0-11.0 RBC 4.58 4.00-5.40 HGB [...] 0.0 0.0-0.1 Nov 15, 2024 12:58 PM [facility] FINGERSTICK GLUCOSE Specimen Type: BLOOD Comment: Save Result Ordering Provider: LISANDRA ZAMORANO Report Released Date/Time: Nov 17, 2024 07:56 AM Reporting Lab: [facility] [phone] Performing Lab: [facility] [phone] FINGERSTICK GLUCOSE 87 mg/dL 70-100 Vital Signs: All taken on the encounter date This section contains inpatient and outpatient Vital Signs collected on the date of the Encounter. Date/Time Temperature Pulse Blood Pressure Respiratory Rate SP02 Pain Height Weight Body Mass Index Source Dec 09, 2024 10:52 AM 69 124/79 [facility] Dec 09, 2024 10:37 AM 72 113/73 [facility] Dec 09, 2024 10:22 AM 70 98 [facility] Dec 09, 2024 10:22 AM 98.5 66 117/80 98 [facility] Social History: Smoking [...] [place]-TOBACCO QUIT 5 TO < 15 YRS [facility] Tobacco Use History This section includes a history of the smoking, or tobacco-related health factors, that were collected on or before the date of the Encounter. The data comes from the [place] facility where the Encounter took place. Date/Time Smoking Status/Tobacco Use Comment F [facility]line Nov 27, 2023 03:30 PM VA-TOBACCO QUIT 5 TO < 15 YRS [facility] Jan 14, 2023 09:03 AM VA-TOBACCO FORMER USER [facility] Jan 14, 2023 09:03 AM VA-TOBACCO QUIT 5 TO < 15 YRS [facility] Radiology Reports: +/- [...] 2024 07:03 AM MRI-BRAIN (P): AWAIS PADILLA [id number] -1990 F Exm Date: DEC 16, 2024@07:03 Req Phys: STEPHEN FRANCOIS Loc: [facility] OPTIC CABLE SPLICER CONSULT-A (Re Img Loc: MRI IMAGING Service: Unknown Screen: [place] [address] (Case [id number] COMPLETE) MRI BRAIN/BRAINSTEM W/O CONTRAST (MRI Detailed) CPT:78309 Reason for Study: Myelopathy Clinical History: Did the ordering provider speak with a oracle adf consultant regarding this imaging exam?No Brain MRI without contrast Myelopathy LAST CREATININE 0.6 (11/22/24) Allergies: METOPROLOL (Jan 14, 2023) REGLAN (Jan 14, 2023) My pager number on record is: [phone]. The pager number/cell phone number above is [...] 16, 2024 Date Verified: DEC 16, 2024 Painting Supervisor E-Sig:/ES/SUJIT DENIS MD Report: MRI BRAIN/BRAINSTEM [...] Primary Interpreting Staff: SUJIT DENIS MD, RADIOLOGIST (Painting Supervisor) /[facility] SUJIT DENIS [facility] Dec 09, 2024 09:[address] MYELOGRAM THORA CIC (P): AWAIS PADILLA [id number] -1990 F Exm Date: DEC 09, 2024@09:52 Req Phys: STEPHEN FRANCOIS Loc: [facility] CABLE SPLICER CONSULT-A (Re Img Loc: CT IMAGING Service: Unknown Screen: Patient answered no [place], [place] [id number] (Case [id number] COMPLETE) CT MYELOGRAM THORACIC SPINE (CT Detailed) CPT:12280 CPT Modifiers : 59 DISTINCT PROCEDURAL SERVICE [...] PLASMA .CREAT EGFR(CKD-E >90 Ref: >=60 Allergies: ([place] only) METOPROLOL (Jan 14, 2023) REGLAN (Jan 14, 2023) Defer to radiologist for final CT protocol. User Placing Order: STEPHEN FRANCOIS L - Office Phone: My pager number on record is: [phone]. The pager number/cell phone number above is NOT correct for reporting critical results, I have entered my correct number below: My correct contact # for critial results is:neurosurgery station gateman Trainees only: Enter your staff provider's info here: Per Joint Commission Standards, by signing this diagnostic imaging request the ordering provider confirms they have considered patients age and recent imaging history. Report Status: Verified Date Reported: DEC 09, 2024 Date Verified: DEC 09, 2024 Painting Supervisor E-Sig:/ES/CARITO POLANCO MD Report: CT Thoracic [...] Primary Interpreting Staff: CARITO POLANCO MD, RADIOLOGIST (Painting Supervisor) /CARITO TOLENTINO [facility] Dec 09, 2024 08:50 AM MYELOGRAM THORACIC (P): AWAIS PADILLA [id number] -1990 F Exm Date: DEC 09, 2024@08:50 Req Phys: STEPHEN FRANCOIS Loc: [facility] NEUROSURG FIBRE OPTIC CABLE SPLICER CONSULT-A (Re Img Loc: MAIN X-RAY Service: Unknown Screen: [place] [address] (Case [id number] COMPLETE) MYELOGRAM THORACIC VIA LUMBAR INJ(RAD Detailed) CPT:43299 Reason for Study: Eval for arachnoid web or cyst at T6 level Clinical History: myelopathy Outside hosptial Thoracic mri w wo contrast is loaded into [facility]. Please do comparison . thank you Responsible provider name and phone number to notify for critical findings if other than user placing the order and pager listed below: User placing orders pager: [phone] Neurosurgery station gateman LAST CREATININE 0.6 (11/22/24) Report Status: Verified Date Reported: DEC 09, 2024 Date Verified: DEC 09, 2024 Painting Supervisor E-Sig:/ES/CARITO POLANCO MD Report: PROCEDURE: Lumbar puncture with fluoroscopic guidance. Thoracic myelogram. History: Myelopathy. Thoracic MRI shows dorsal lesion at T6. Comparison: Outside recent thoracic MRI exam from the [facility]. Fluoro time: 0.8 minute Dose: Air Kerma: 3.9, mGy, DAP: 3.54, dGy.cm? PROCEDURE: The patient/medical decision-maker understood the limitations, alternatives, and risks of the procedure and requested the procedure be performed. Both iMed and oral consent were obtained. A pre-procedural Time-Out was performed per [facility] policy. The patient was prepped [...] Primary Interpreting Staff: CARITO POLANCO MD, RADIOLOGIST (Painting Supervisor) /CARITO TOLENTINO [facility] Nov 22, 2024 07:12 PM NON [place] MRI THORACI C SPINE: AWAIS PADILLA [id number] -1990 F Exm Date: NOV 22, 2024@19:12 Req Phys: CINDY ZAMORANO Loc: [facility] XRAY GENERAL AM (Req'g Loc Img Loc: OUTSOURCE MRI Service: Unknown Screen: Patient answered no (Case [id number] COMPLETE) NON [place] MRI THORACIC SPINE (MRI Detailed) CPT:36866 Reason for Study: OUTSIDE STUDY Clinical History: OUTSIDE STUDY Report Status: Electronically Filed Date Reported: NOV 30, 2024 Report: This is an outside Imaging study and/or report imported for continuity of patient care. This Imaging study and/or report was not reviewed or verified by a [place] Radiologist. Impression: This is an outside Imaging study and/or report imported for continuity of patient care. This Imaging study and/or report was not reviewed or verified by a [place] Radiologist. Primary Diagnostic Code: VERIFIED BY: / *ELECTRONICALLY FILED* [facility] Nov 15, 2024 12:[address] BODY W/O CO NTRAST (P): AWAIS PADILLA [id number] -1990 F Exm Date: NOV 15, 2024@12:39 Req Phys: KURT NEWELL Pat Loc: [facility] ONC SCARIA (Req'g Loc) Img Loc: NUC MED Service: Unknown Screen: [place] [address] (Case [id number] COMPLETE) SKULL-THIGH PET IMAGE W/CT (NM Detailed) CPT:35572 Reason for Study: Evaluation for malignacy (Case [...] pager listed below: User placing orders pager: [phone] LAST CREATININE 0.6 (07/24/24) Report Status: Verified Date Reported: NOV 15, 2024 Date Verified: NOV 15, 2024 Painting Supervisor E-Sig:/ES/CAIN SMART MD Report: PET/CT SCAN INDICATION: [...] Staff: CAIN SMART MD, RADIOLOGY STAFF PHYSICIAN (Painting Supervisor) /CAIN CR [facility] Nov 10, 2024 10:23 AM [facility] MRI THORACI C SPINE: PADILLA,ARMENADRIEN GRIMME [id number] -1990 F Exm Date: NOV 10, 2024@10:23 Req Phys: CINDY ZAMORANO Pat Loc: [facility] XRAY GENERAL AM (Req'g Loc Img Loc: OUTSOURCE MRI Service: Unknown Screen: Patient answered no (Case [id number] COMPLETE) NON [place] MRI THORACIC SPINE (MRI Detailed) CPT:91373 Reason for Study: OUTSIDE STUDY Clinical History: OUTSIDE STUDY Report Status: Electronically Filed Date Reported: NOV 30, 2024 Report: This is an outside Imaging study and/or report imported for continuity of patient care. This Imaging study and/or report was not reviewed or verified by a [place] Radiologist. Impression: This is an outside Imaging study and/or report imported for continuity of patient care. This Imaging study and/or report was not reviewed or verified by a [place] Radiologist. Primary Diagnostic Code: VERIFIED BY: / *ELECTRONICALLY FILED* [facility] Nov 10, 2024 10:03 AM NON [place] MRI CERVICA L SPINE: AWAIS PADILLA [id number] -1990 F Exm Date: NOV 10, 2024@10:03 Req Phys: CINDY ZAMORANO Loc: [facility] XRAY GENERAL AM (Req'g Loc Img Loc: OUTSOURCE MRI Service: Unknown Screen: Patient answered no (Case [id number] COMPLETE) NON [place] MRI CERVICAL SPINE (MRI Detailed) CPT:03078 Reason for Study: OUTSIDE STUDY Clinical History: OUTSIDE STUDY Report Status: Electronically Filed Date Reported: NOV 30, 2024 Report: This is an outside Imaging study and/or report imported for continuity of patient care. This Imaging study and/or report was not reviewed or verified by a [place] Radiologist. Impression: This is an outside Imaging study and/or report imported for continuity of patient care. This Imaging study and/or report was not reviewed or verified by a [place] Radiologist. Primary Diagnostic Code: VERIFIED BY: / *ELECTRONICALLY FILED* [facility] Nov 10, 2024 09:46 AM NON [place] MRI LUMBAR SPINE: AWAIS PADILLA [id number] -1990 F Exm Date: NOV 10, 2024@09:46 Req Phys: CINDY ZAMORANO Loc: [facility] XRAY GENERAL AM (Req'g Loc Img Loc: OUTSOURCE MRI Service: Unknown Screen: Patient answered no (Case [id number] COMPLETE) NON [place] MRI LUMBAR SPINE (MRI Detailed) CPT:85020 Reason for Study: OUTSIDE STUDY Clinical History: OUTSIDE STUDY Report Status: Electronically Filed Date Reported: NOV 30, 2024 Report: This is an outside Imaging study and/or report imported for continuity of patient care. This Imaging study and/or report was not reviewed or verified by a [place] Radiologist. Impression: This is an outside Imaging study and/or report imported for continuity of patient care. This Imaging study and/or report was not reviewed or verified by a [place] Radiologist. Primary Diagnostic Code: VERIFIED BY: / *ELECTRONICALLY FILED* [facility] Encounter Notes: All associated encounter notes This section contains the clinical notes associated to the Encounter. Date/Time Encounter Note(s) Provider Source Dec 09, 2024 11:17 AM FORECLOSURE FIELD INSPECTOR NOTE: LOCAL TITLE: FORECLOSURE FIELD INSPECTOR NOTE STANDARD TITLE: FORECLOSURE FIELD INSPECTOR NOTE DATE OF NOTE: DEC 09, 2024@11:17 ENTRY DATE: DEC 09, 2024@11:17:42 AUTHOR: JAZMIN MARTINEZ EXP COSIGNER: URGENCY: STATUS: COMPLETED Imaging disk taken to [facility] Imaging for upload to [employer]. /los/ JAZMIN MARTINEZ (MATTI) ALYSIAC REGISTERED NURSE, CERTIFIED Signed: 12/09/2024 11:18 Receipt Acknowledged By: * AWAITING SIGNATURE * CORETTA BALDWIN 12/09/2024 13:36 /los/ KEAGAN MASSEY RN, [facility] DEPARTMENT OF NEUROLOGY JAZMIN MARTINEZ [facility]
--- OUTSIDE RECORDS SUMMARY | 2025-01-11 10:11 | XMS_ITS | Clinical Summary ---
Author Organization [facility] [facility] Address [address] [place] [id number] Care Team Providers Care Compliance Auditor Name Role Phone None Primary Care Provider [...] Department Care Team Description 12/29/[address] [facility] [facility] [address] [facility] [address] [place] [address] Bree Hassan, PhD, LP 11/23/2024 Transcribe Orders [facility] [address] [place] [address] [place] MD from Last 3 Months Social History Tobacco Use Types Packs/Day Years Used Date Smoking Tobacco: Former Smokeless Tobacco: Former Alcohol Use Standard Drinks/Week Comments Not Currently 0 (1 standard drink = 0.6 oz pur e alcohol) Comments No Sex and Gender Information Value Date Recorded Sex Assigned at Not on file Legal Sex Female 8:20 PM DISTRIBUTION A CLASS LINEMAN Gender Identity Not on file Sexual Orientation [...] 9 SORENS EN,BB FIFI Pearson Complications:None Delivery Location:[facility]) Last Filed Vital Signs Vital Sign Reading Time Taken Comments Blood Pressure 130/82 09/03/2020 7:00 AM DISTRIBUTION A CLASS LINEMAN Pulse 88 09/03/2020 7:00 AM DISTRIBUTION A CLASS LINEMAN Temperature 36.8 C (98.2 F) 09/03/2020 7:00 AM DISTRIBUTION A CLASS LINEMAN Respiratory Rate 18 09/03/2020 7:00 AM DISTRIBUTION A CLASS LINEMAN Oxygen Saturation 96% 09/01/2020 3:49 AM DISTRIBUTION A CLASS LINEMAN Inhaled Oxygen Concentration - - Weight 121.6 kg (268 lb) 08/31/2020 10:13 PM DISTRIBUTION A CLASS LINEMAN Height 172.7 cm (5' 8) 08/31/2020 10:13 PM DISTRIBUTION A CLASS LINEMAN Body Mass Index 40.75 08/31/2020 10:13 PM DISTRIBUTION A CLASS LINEMAN Plan of Treatment Upcoming Encounters Date Type Department Care Team (Late st Contact Info) Description 05/22/2025 12:30 PM CDT Office Visit [facility] [address] [place] [address] Bree Hassan, PhD, LP [address] [place] [address] Health Maintenance Due Date Last Done Comments [...] Comments Code Status Discussion: Discussed Care Teams Compliance Auditor Relationship Specialty Start Date End Date None . PCP - General 12/05/24
--- OUTSIDE RECORDS SUMMARY | 2025-01-11 10:11 | XMS_ITS | Clinical Summary ---
Author Organization [facility] Address [address] [place] [address] Care Team Providers Care Box Office Attendant Name Role Phone None, Pcp Primary Care [...] patient's age to complete this topic Insurance [facility] [employer] Care Teams Box Office Attendant Relationship Specialty Start Date End Date None, Pcp [address] [place], [place] [address] [address] PCP - General Nut Sheller 07/20/24
--- OUTSIDE RECORDS SUMMARY | 2025-01-11 10:11 | XMS_ITS | Encounter Summary ---
Author Name [facility] [place] Organization [facility] [place] Address [address] [place] [id number] Care Team Providers Care Internal Medicine Nurse Name Role Phone MARÍA SEAY Primary Care Provider Unavail able Selected Encounter This section includes the information on record at [place] for the Encounter. Date/Time Encounter Type Encounter Description Reason Provider Source Dec 01, 2024 08:30 AM Outpatient Encounter PRIMARY CARE/MEDICINE YENNI SALINAS Encounter Template Text not used by [place] Plan of Treatment: Future Appointments (+ 6 months) and Future Tests (+/- 45 days) The Plan of Treatment section includes future care activities for the patient from all [place] treatmentfacilities. This section includes future appointments and future orders which are active, pending or scheduled. Future Appointments This section includes appointments that were scheduled to occur 6 months from the date of the Encounter, up to a maximum of 20 appointments. The data comes from all [place] treatment facilities. Appointment Date/Time Appointment Type Appointme nt Facility Name Dec 02, 2024 08:00 AM AMBULATORY - REHAB MEDICIN E [facility] Dec 09, 2024 08:30 AM AMBULATORY - NONE [facility] Dec 09, 2024 09:30 AM AMBULATORY - NONE [place] [facility] Dec 09, 2024 10:30 AM AMBULATORY - NONE [place] [facility] Dec 09, 2024 10:45 AM AMBULATORY - SURGERY [facility] Dec 13, 2024 01:00 PM AMBULATORY - REHAB MEDICIN E [facility] Dec 16, 2024 07:00 AM [facility] Dec 21, 2024 10:00 AM AMBULATORY - REHAB MEDICIN E [facility] Dec 22, 2024 11:00 AM AMBULATORY - SURGERY [facility] Dec 23, 2024 08:00 AM AMBULATORY - REHAB MEDICIN E [facility] Dec 28, 2024 01:00 PM AMBULATORY - REHAB MEDICIN E [facility] Dec 29, 2024 10:00 AM AMBULATORY - REHAB MEDICIN E [facility] Jan 02, 2025 08:30 AM AMBULATORY - REHAB MEDICIN E [facility] Jan 05, 2025 01:58 PM [facility] Jan 06, 2025 03:00 PM AMBULATORY - REHAB MEDICIN E [facility] Jan 10, 2025 09:00 AM AMBULATORY - REHAB MEDICIN E [facility] Jan 16, 2025 10:00 AM AMBULATORY - REHAB MEDICIN E [facility] Jan 18, 2025 09:00 AM AMBULATORY - REHAB MEDICIN E [facility] Jan 23, 2025 09:00 AM AMBULATORY - REHAB MEDICIN [facility] Jan 25, 2025 09:00 AM AMBULATORY - REHAB MEDICIN [facility] Active, Pending, and Scheduled Orders This section includes a listing of several types of active, pending, and scheduled orders, including clinic medications orders, diagnostic test orders, procedure orders and consult orders; where the start date of the order is 45 days before the date of the Encounter or 45 days after the date of theEncounter. The data comes from all [place] treatment [facility]. Test Date/Time Test Type Test Details Facility Name Oct 25, 2024 12:00 AM Laboratory - Chemistry Order CBC & DIFF BLOOD ONCO SP ONCE [facility] Nov 25, 2024 10:22 AM Consult Order OT OCCUPATIONAL THERAPY OUTPT VISION THERAPY Cons Pressing Machine Operator's Choice [facility] Nov 30, 2024 12:00 AM Laboratory - Chemistry Order CBC BLOOD STAT SP ONCE [facility] Nov 30, 2024 12:00 AM Laboratory - Chemistry Order PROTHROMBIN TIME/INR PLASMA STAT SP [facility] Nov 30, 2024 12:00 AM Laboratory - Chemistry Order CREATININE(INCLUDES EGFR) PLASMA STAT SP ONCE [facility] Dec 01, 2024 11:53 AM Consult Order CSP PCAFC FUNCTIONAL ASSESSMENT INSTRUMENT OUTPT Cons Pressing Machine Operator's Choice [facility] Jan 03, 2025 12:08 PM Consult Order OT OCCUPATIONAL THERAPY OUTPT HOME ACCESSIBILITY Cons Pressing Machine Operator's Choice [facility] Jan 05, 2025 03:02 PM Consult Order ENT OUTPT Cons Pressing Machine Operator's [facility] Lab Results: +/- 30 days of the encounter This section includes the Chemistry and Hematology Lab Results on record with [place] for the patient. Radiology Reports and Pathology Reports are provided separately, in subsequent sections. Lab Results This section contains the Chemistry/Hematology Results that were resulted 30 days before or 30 daysafter the date of the Encounter. Date/Time Source Result Type Result - Unit Interpretation Reference Range Comment Dec 09, 2024 08:34 AM [facility] PROTHROMBIN TIME/INR Specimen Type: PLASMA No comment entered. Ordering Provider: FORD FRANCOIS Report Released Date/Time: Dec 06, 2024 09:29 AM Reporting Lab: [facility] [id number] Performing Lab: [facility] [address] .INR 1.1 0.8-1.1 .PT 12.9 s H 9.4-12.5 Dec 09, 2024 08:34 AM [facility] CREATININE(INCLUDES EGFR) Specimen Type: PLASMA No comment entered. Ordering Provider: FORD FRANCOIS Report Released Date/Time: Dec 06, 2024 09:29 AM Reporting Lab: [facility] [phone] Performing Lab: [facility] [address] CREATININE 0.6 mg/dL 0.5-1.0 .CREAT EGFR(CKD-EPI) >90 >60 Dec 09, 2024 08:34 AM [facility] CBC & DIFF Specimen Type: BLOOD Comment: Automated Differential Performed Ordering Provider: FORD FRANCOIS Report Released Date/Time: Dec 06, 2024 09:29 AM Reporting Lab: [facility] [address] Performing Lab: [facility] [address] WBC 4.4 4.0-11.0 RBC 4.42 4.00-5.40 HGB [...] 0.0 0.0-0.1 Nov 22, 2024 09:45 AM [facility] LD,TOTAL Specimen Type: PLASMA No comment entered. Ordering Provider: KURT NEWELL Report Released Date/Time: Apr 26, 2024 10:33 AM Reporting Lab: [facility] [address] Performing Lab: [facility] [address] LD,TOTAL 194 U/L 125-220 Nov 22, 2024 09:45 AM [facility] URIC ACID Specimen Type: PLASMA No comment entered. Ordering Provider: KURT NEWELL Report Released Date/Time: Apr 26, 2024 10:33 AM Reporting Lab: [facility] [address] Performing Lab: [facility] [address] URIC ACID 5.4 mg/dL 2.5-6.2 Nov 22, 2024 09:45 AM [facility] COMPREHENSIVE METABOLIC PANEL+MG Specimen Type: PLASMA No comment entered. Ordering Provider: KURT NEWELL Report Released Date/Time: Apr 26, 2024 10:33 AM Reporting Lab: [facility] [address] Performing Lab: [facility] [address] CREATININE 0.6 mg/dL 0.5-1.0 UREA NITROGEN 12 [...] >90 >60 Nov 22, 2024 09:44 AM [facility] CBC & DIFF Specimen Type: BLOOD Comment: Automated Differential Performed Ordering Provider: KURT NEWELL Report Released Date/Time: Oct 25, 2024 10:32 AM Reporting Lab: [facility] [address] Performing Lab: [facility] [address] WBC 5.4 4.0-11.0 RBC 4.58 4.00-5.40 HGB [...] 0.0 0.0-0.1 Nov 15, 2024 12:58 PM [facility] FINGERSTICK GLUCOSE Specimen Type: BLOOD Comment: Save Result Ordering Provider: LISANDRA SEAY Report Released Date/Time: Nov 17, 2024 07:56 AM Reporting Lab: [facility] [address] Performing Lab: [facility] [address] FINGERSTICK GLUCOSE 87 mg/dL 70-100 Social History: Smoking Status (Most current) and Tobacco Use (All prior to encounter date) This section includes the most current, and the historical, smoking and tobacco- related health factors from the [place] facility where the Encounter took place. Current Smoking Status This section includes the most current smoking, or tobacco-related health factor, from the [place] facility where the Encounter took place. Date/Time Current Smoking Status Comment Facil ity Nov 27, 2023 03:30 PM VA-TOBACCO FORMER USER [facility] Tobacco Use History This section includes a history of the smoking, or tobacco-related health factors, that were collected on or before the date of the Encounter. The data comes from the [place] facility where the Encounter took place. Date/Time [...] the Encounter. The data comes from all [place] treatment facilities. Date/Time Radiology Report Provider Source Dec 16, 2024 07:03 AM MRI-BRAIN (P): AWAIS PADILLA [id number] -1990 F Exm Date: DEC 16, 2024@07:03 Req Phys: ALESSANDROSTEPHEN Shelton Evelyn Loc: [facility] NEUROSURG PRESS SECRETARY CONSULT-A (Re Img Loc: MRI IMAGING Service: Unknown Screen: [place] [address] (Case [id number] COMPLETE) MRI BRAIN/BRAINSTEM W/O CONTRAST (MRI Detailed) CPT:11792 Reason for Study: Myelopathy Clinical History: Did the ordering provider speak with a regional engagement consultant regarding this imaging exam?No Brain MRI without contrast Myelopathy LAST CREATININE 0.6 (11/22/24) Allergies: METOPROLOL (Jan 14, 2023) REGLAN (Jan 14, 2023) My pager number on record is: [phone]. The pager number/cell phone number above is [...] 16, 2024 Date Verified: DEC 16, 2024 Ship Fastener E-Sig:/ES/SUJIT DENIS MD Report: MRI BRAIN/BRAINSTEM W/O [...] Primary Interpreting Staff: SUJIT DENIS MD, RADIOLOGIST (Ship Fastener) /[facility] SUJIT DENIS [facility] Dec 09, 2024 09:[address] MYELOGRAM THORA CIC (P): AWAIS PADILLA [id number] -1990 F Exm Date: DEC 09, 2024@09:52 Req Phys: STEPHEN FRANCOIS Pat Loc: [facility] NEUROSURG PRESS SECRETARY CONSULT-A (Re Img Loc: CT IMAGING Service: Unknown Screen: [place] [address] (Case [id number] COMPLETE) CT MYELOGRAM THORACIC SPINE (CT Detailed) CPT:24592 CPT Modifiers : 59 DISTINCT PROCEDURAL SERVICE [...] PLASMA .CREAT EGFR(CKD-E >90 Ref: >=60 Allergies: ([facility] only) METOPROLOL (Jan 14, 2023) REGLAN (Jan 14, 2023) Defer to radiologist for final CT protocol. User Placing Order: STEPHEN FRANCOIS - Office Phone: My pager number on record is: [phone]. The pager number/cell phone number above is NOT correct for reporting critical results, I have entered my correct number below: My correct contact # for critial results is:neurosurgery protection specialist Trainees only: Enter your staff provider's info here: Per Joint Commission Standards, by signing this diagnostic imaging request the ordering provider confirms they have considered patients age and recent imaging history. Report Status: Verified Date Reported: DEC 09, 2024 Date Verified: DEC 09, 2024 Ship Fastener E-Sig:/ES/CARITO POLANCO MD Report: CT Thoracic Spine [...] Primary Interpreting Staff: CARITO POLANCO MD, RADIOLOGIST (Ship Fastener) /CARITO TOLENTINO [facility] Dec 09, 2024 08:50 AM MYELOGRAM THORACIC (P): AWAIS PADILLA [id number] -1990 F Exm Date: DEC 09, 2024@08:50 Req Phys: STEPHEN FRANCOIS Pat Loc: [facility] NEUROSURG PRESS SECRETARY CONSULT-A (Re Img Loc: MAIN X-RAY Service: Unknown [place]: [place] [address] (Case [id number] COMPLETE) MYELOGRAM THORACIC VIA LUMBAR INJ(RAD Detailed) CPT:76073 Reason for Study: Eval for arachnoid web or cyst at T6 level Clinical History: myelopathy Outside hosptial Thoracic mri w wo contrast is loaded into [facility]. Please do comparison . thank you Responsible provider name and phone number to notify for critical findings if other than user placing the order and pager listed below: User placing orders pager: [phone] Neurosurgery protection specialist LAST CREATININE 0.6 (11/22/24) Report Status: Verified Date Reported: DEC 09, 2024 Date Verified: DEC 09, 2024 Ship Fastener E-Sig:/ES/CARITO POLANCO MD Report: PROCEDURE: Lumbar puncture with fluoroscopic guidance. Thoracic myelogram. History: Myelopathy. Thoracic MRI shows dorsal lesion at T6. Comparison: Outside recent thoracic MRI exam from the [facility]. Fluoro time: 0.8 minute Dose: [...] Primary Interpreting Staff: CARITO POLANCO MD, RADIOLOGIST (Ship Fastener) /CARITO TOLENTINO [facility] Nov 22, 2024 07:12 PM NON [place] MRI THORACI C SPINE: AWAIS PADILLA [id number] -1990 F Exm Date: NOV 22, 2024@19:12 Req Phys: MARÍA SEAY Loc: [facility] XRAY GENERAL AM (Req'g Loc Img Loc: OUTSOURCE MRI Service: Unknown Screen: Patient answered no (Case [id number] COMPLETE) NON [place] MRI THORACIC SPINE (MRI Detailed) CPT:10762 Reason for Study: OUTSIDE STUDY Clinical History: OUTSIDE STUDY Report Status: Electronically Filed Date Reported: NOV 30, 2024 Report: This is an outside Imaging study and/or report imported for continuity of patient care. This Imaging study and/or report was not reviewed or verified by a [place] Radiologist. Impression: This is an outside Imaging study and/or report imported for continuity of patient care. This Imaging study and/or report was not reviewed or verified by a [place] Radiologist. Primary Diagnostic Code: VERIFIED BY: / *ELECTRONICALLY FILED* [facility] Nov 15, 2024 12:[address] BODY W/O CO NTRAST (P): AWAIS PADILLA [id number] -1990 F Exm Date: NOV 15, 2024@12:39 Req Phys: KURT NEWELL Loc: [facility] ONC OSIRIS (Req'g Loc) Img Loc: NUC MED Service: Unknown Screen: [place] [address] (Case [id number] COMPLETE) SKULL-THIGH PET IMAGE W/CT (NM Detailed) CPT:95735 Reason for Study: Evaluation for malignacy (Case [...] pager listed below: User placing orders pager: [phone] LAST CREATININE 0.6 (07/24/24) Report Status: Verified Date Reported: NOV 15, 2024 Date Verified: NOV 15, 2024 Ship Fastener E-Sig:/ES/CAIN SMART MD Report: PET/CT SCAN INDICATION: [...] Staff: CAIN SMART MD, RADIOLOGY STAFF PHYSICIAN (Ship Fastener) /CAIN CR [facility] Nov 10, 2024 10:23 AM NON [place] MRI THORACI C SPINE: AWAIS PADILLA [id number] -1990 F Exm Date: NOV 10, 2024@10:23 Req Phys: MARÍA SEAY Loc: [facility] XRAY GENERAL AM (Req'g Loc Img Loc: OUTSOURCE MRI Service: Unknown Screen: Patient answered no (Case [id number] COMPLETE) NON [place] MRI THORACIC SPINE (MRI Detailed) CPT:55043 Reason for Study: OUTSIDE STUDY Clinical History: OUTSIDE STUDY Report Status: Electronically Filed Date Reported: NOV 30, 2024 Report: This is an outside Imaging study and/or report imported for continuity of patient care. This Imaging study and/or report was not reviewed or verified by a [place] Radiologist. Impression: This is an outside Imaging study and/or report imported for continuity of patient care. This Imaging study and/or report was not reviewed or verified by a [place] Radiologist. Primary Diagnostic Code: VERIFIED BY: / *ELECTRONICALLY FILED* [facility] Nov 10, 2024 10:03 AM NON [place] MRI CERVICA L SPINE: AWAIS PADILLA [id number] -1990 F Exm Date: NOV 10, 2024@10:03 Req Phys: MARÍA SEAY Loc: [facility] XRAY GENERAL AM (Req'g Loc Img Loc: OUTSOURCE MRI Service: Unknown Screen: Patient answered no (Case [id number] COMPLETE) NON [place] MRI CERVICAL SPINE (MRI Detailed) CPT:63285 Reason for Study: OUTSIDE STUDY Clinical History: OUTSIDE STUDY Report Status: Electronically Filed Date Reported: NOV 30, 2024 Report: This is an outside Imaging study and/or report imported for continuity of patient care. This Imaging study and/or report was not reviewed or verified by a [place] Radiologist. Impression: This is an outside Imaging study and/or report imported for continuity of patient care. This Imaging study and/or report was not reviewed or verified by a [place] Radiologist. Primary Diagnostic Code: VERIFIED BY: / *ELECTRONICALLY FILED* [facility] Nov 10, 2024 09:46 AM NON [place] MRI LUMBAR SPINE: AWAIS PADILLA [id number] -1990 F Exm Date: NOV 10, 2024@09:46 Req Phys: MARÍA SEAY Loc: [facility] XRAY GENERAL AM (Req'g Loc Img Loc: OUTSOURCE MRI Service: Unknown Screen: Patient answered no (Case [id number] COMPLETE) NON [place] MRI LUMBAR SPINE (MRI Detailed) CPT:89259 Reason for Study: OUTSIDE STUDY Clinical History: OUTSIDE STUDY Report Status: Electronically Filed Date Reported: NOV 30, 2024 Report: This is an outside Imaging study and/or report imported for continuity of patient care. This Imaging study and/or report was not reviewed or verified by a [place] Radiologist. Impression: This is an outside Imaging study and/or report imported for continuity of patient care. This Imaging study and/or report was not reviewed or verified by a [place] Radiologist. Primary Diagnostic Code: VERIFIED BY: / *ELECTRONICALLY FILED* [facility] Encounter Notes: All associated encounter notes This section contains the clinical notes associated to the Encounter. Date/Time Encounter Note(s) Provider Source Dec 01, 2024 08:30 AM PRIMARY CARE SECUR E MESSAGING: LOCAL TITLE: PRIMARY CARE SECURE MESSAGING STANDARD TITLE: PRIMARY CARE SECURE MESSAGING DATE OF NOTE: DEC 01, 2024@08:30 ENTRY DATE: DEC 01, 2024@07:30:48 AUTHOR: YENNI SALINAS EXP COSIGNER: URGENCY: STATUS: COMPLETED PRIMARY CARE SECURE MESSAGING Has ADDENDA ------Original Message ----- Sent: 11/30/2024 02:28 PM ET From: AWAIS PADILLA To: [facility] Primary Care, Brian Seay ([facility]) Subject: Medication:Pain meds. I found out today that it's going to be another month before we can see the neurosurgeon to come up with a plan pending more imaging. I'll need pain medecine to get by until then. The ER did give me some and I am taking 1 a day during the tougher hours of the day. They told me today in neurosurgeon appt that you were the one to message. ------Original Message ----- Sent: 12/01/2024 08:30 AM ET From: YENNI SALINAS To: AWAIS PADILLA Subject: Medication:Pain meds. Good Morning, I will forward your request to your provider. Yenni Salinas RN BSN [employer] Manager /es/ YENNI SALINAS RN BSN Signed: 12/01/2024 07:30 Receipt Acknowledged By: 12/02/2024 15:27 /los/ María Seay PA-C Physician Data Quality Consultant 12/02/2024 ADDENDUM STATUS: COMPLETED Patient seen by Pain Clinic today. Appears they rec gabapentin for her neuropathic pain. Continue with pain clinic recs /los/ María Seay PA-C Physician Data Quality Consultant Signed: 12/02/2024 15:29 YENNI SALINAS [facility]
--- OUTSIDE RECORDS SUMMARY | 2025-01-11 10:11 | XMS_ITS | Encounter Summary ---
Author Name [facility] [place] Organization [facility] [place] Address [address] [place] [address] Care Team Providers Care Superintendent Meter Tests Name Role Phone MARÍA SEAY Primary Care Provider Unavail able Selected Encounter This section includes the information on record at [place] for the Encounter. Date/Time Encounter Type Encounter Description Reason Provider Source Jan 02, 2025 08:30 AM PSYCH DIAGNOSTIC EVALUATION CAREGIVER SUPPORT PROGRAM ICD-10-CM Z65.9 Problem related to unspecified psychosocial circumstances [facility]O [facility] Encounter Template Text not used by [place] Assessments - Encounter Diagnoses This section includes the primary and secondary diagnoses documented for the Encounter. Date/Time Primary/Secondary Diagnosis Diagnosis Name Provider Source Jan 02, 2025 09:37 AM PRIMARY Problem related to unspecified psychosocial circumstances YAYO [facility] Jan 02, 2025 09:37 AM SECONDARY Personal history of traumatic brain injury YAYO WE[facility] Plan of Treatment: [...] 21, 2025 10:00 AM AMBULATORY - NONE [facility] February 21, 2025 11:00 AM AMBULATORY - MEDICINE [facility] February 28, 2025 01:00 PM AMBULATORY - REHAB MEDICIN E [facility] March 14, 2025 02:00 PM AMBULATORY - REHAB MEDICIN [facility] Apr 28, 2025 09:30 AM AMBULATORY - [...] of theEncounter. The data comes from all [facility]. Test Date/Time Test Type Test Details Facility Name Nov 25, 2024 10:22 AM Consult Order OT OCCUPATIONAL THERAPY OUTPT VISION THERAPY Cons [facility] Nov 30, 2024 12:00 AM Laboratory - Chemistry Order CBC BLOOD STAT SP ONCE [facility] Nov 30, 2024 12:00 AM Laboratory - Chemistry Order PROTHROMBIN TIME/INR PLASMA STAT SP [facility] Nov 30, 2024 12:00 AM Laboratory - Chemistry Order CREATININE(INCLUDES EGFR) PLASMA STAT SP ONCE [facility] Dec 01, 2024 11:53 AM Consult Order CSP PCAFC FUNCTIONAL ASSESSMENT INSTRUMENT OUTPT Cons [facility] Jan 03, 2025 12:08 PM Consult Order OT OCCUPATIONAL THERAPY OUTPT HOME ACCESSIBILITY Cons [facility] Jan 05, 2025 03:02 PM Consult Order ENT OUTPT Cons [facility] Lab Results: +/- 30 days of the encounter This section includes the Chemistry and Hematology Lab Results on record with [place] for the patient. Radiology Reports and Pathology [...] Dec 06, 2024 09:29 AM Reporting Lab: [facility] [id number] Performing Lab: [facility] [id number] .INR 1.1 0.8-1.1 .PT 12.9 s H 9.4-12.5 Dec 09, 2024 08:34 AM [facility] CREATININE(INCLUDES EGFR) Specimen Type: PLASMA No comment entered. Ordering Provider: STEPHEN FRANCOIS Report Released Date/Time: Dec 06, 2024 09:29 AM Reporting Lab: [facility] [id number] Performing Lab: [facility] [id number] CREATININE 0.6 mg/dL 0.5-1.0 .CREAT EGFR(CKD-EPI) >90 >60 Dec 09, 2024 08:34 AM [facility] CBC & DIFF Specimen Type: BLOOD Comment: Automated Differential Performed Ordering Provider: STEPHEN FRANCOIS Report Released Date/Time: Dec 06, 2024 09:29 AM Reporting Lab: [facility] [id number] Performing Lab: [facility] [id number] WBC 4.4 4.0-11.0 RBC 4.42 4.00-5.40 HGB [...] [facility]ALTH [facility]ENTER Jan 14, 2023 09:03 AM [place]-TOBACCO QUIT 5 TO < 15 YRS [facility] [...] comes from all [place] treatment facilities. Date/Time Radiology Report Provider Source Dec 16, 2024 07:03 AM MRI-BRAIN (P): AWAIS PADILLA [id number] -1990 F Exm Date: DEC 16, 2024@07:03 Req Phys: STEPHEN FRANCOIS Evelyn Loc: [facility] TEMPERATURE REGULATOR PYROMETER CONSULT-A (Re Img Loc: MRI IMAGING Service: Unknown Screen: [place] [address] (Case [id number] COMPLETE) MRI BRAIN/BRAINSTEM W/O CONTRAST (MRI Detailed) CPT:00117 Reason for Study: Myelopathy Clinical History: Did the ordering provider speak with a foreign legal consultant regarding this imaging exam?No Brain MRI without contrast Myelopathy LAST CREATININE 0.6 (11/22/24) Allergies: METOPROLOL (Jan 14, 2023) REGLAN (Jan 14, 2023) My pager number on record is: [phone]. The pager number/cell phone number above is [...] 16, 2024 Date Verified: DEC 16, 2024 Supervisor Publications Production E-Sig:/ES/SUJIT DENIS MD Report: MRI BRAIN/BRAINSTEM W/O [...] Primary Interpreting Staff: SUJIT DENIS MD, RADIOLOGIST (Supervisor Publications Production) /[facility] SUJIT DENIS [facility] Dec 09, 2024 09:[address] MYELOGRAM THORA CIC (P): AWAIS PADILLA [id number] -1990 F Exm Date: DEC 09, 2024@09:52 Req Phys: STEPHEN FRANCOIS Pat Loc: [facility] TEMPERATURE REGULATOR PYROMETER CONSULT-A (Re Img Loc: CT IMAGING Service: Unknown Screen: Patient [place] [address] (Case [id number] COMPLETE) CT MYELOGRAM THORACIC SPINE (CT Detailed) CPT:17829 CPT Modifiers : 59 DISTINCT PROCEDURAL SERVICE [...] PLASMA .CREAT EGFR(CKD-E >90 Ref: >=60 Allergies: ([place] only) METOPROLOL (Jan 14, 2023) REGLAN (Jan 14, 2023) Defer to radiologist for final CT protocol. User Placing Order: STEPHEN FRANCOIS - Office Phone: My pager number on record is: [phone]. The pager number/cell phone number above is NOT correct for reporting critical results, I have entered my correct number below: My correct contact # for critial results is:neurosurgery supervisor fabrication Trainees only: Enter your staff provider's info here: Per Joint Commission Standards, by signing this diagnostic imaging request the ordering provider confirms they have considered patients age and recent imaging history. Report Status: Verified Date Reported: DEC 09, 2024 Date Verified: DEC 09, 2024 Supervisor Publications Production E-Sig:/ES/CARITO POLANCO MD Report: CT Thoracic Spine [...] 12/09/2024 11:29 AM Primary Interpreting Staff: CARITO PLOANCO MD, RADIOLOGIST (Supervisor Publications Production) /CARITO TOLENTINO [facility] Dec 09, 2024 08:50 AM MYELOGRAM THORACIC (P): AWAIS PADILLA [id number] -1990 F Exm Date: DEC 09, 2024@08:50 Req Phys: STEPHEN FRANCOIS Pat Loc: [facility] TEMPERATURE REGULATOR PYROMETER CONSULT-A (Re Img Loc: MAIN X-RAY Service: Unknown Screen: Patient [place] [address] (Case [id number] COMPLETE) MYELOGRAM THORACIC VIA LUMBAR INJ(RAD Detailed) CPT:43320 Reason for Study: Eval for arachnoid web or cyst at T6 level Clinical History: myelopathy Outside hosptial Thoracic mri w wo contrast is loaded into [facility]ISAGE. Please do comparison . thank you Responsible provider name and phone number to notify for critical findings if other than user placing the order and pager listed below: User placing orders pager: [phone] Neurosurgery supervisor fabrication LAST CREATININE 0.6 (11/22/24) Report Status: Verified Date Reported: DEC 09, 2024 Date Verified: DEC 09, 2024 Supervisor Publications Production E-Sig:/ES/CARITO POLANCO MD Report: PROCEDURE: Lumbar puncture with fluoroscopic guidance. Thoracic myelogram. History: Myelopathy. Thoracic MRI shows dorsal lesion at T6. Comparison: Outside recent thoracic MRI exam from the [facility]. Fluoro time: 0.8 minute Dose: [...] Primary Interpreting Staff: CARITO POLANCO MD, RADIOLOGIST (Supervisor Publications Production) /CARITO TOLENTINO [facility] Encounter Notes: All associated encounter notes This section contains the clinical notes associated to the Encounter. Date/Time Encounter Note(s) Provider Source Jan 02, 2025 01:53 PM ADDENDUM: LOCAL TITLE: Addendum STANDARD TITLE: ADDENDUM DATE OF NOTE: JAN 02, 2025@13:53:51 ENTRY DATE: JAN 02, 2025@13:53:52 AUTHOR: YAYO WEST EXP COSIGNER: URGENCY: STATUS: COMPLETED Caregiver reports they are interested in a home safety eval for a stair glide. [facility] SW to request PCP enter OT home safety eval. /es/ YAYO WEST Deposit Clerk Signed: 01/02/2025 13:54 Receipt Acknowledged By: 01/03/2025 12:15 /es/ María Seay PA-C Physician Oven Dumper 01/03/2025 11:24 /es/ YENNI FITZGERALD RN BSN --- Original Document --- 01/02/25 [facility] ASSESSMENT: Program of Comprehensive Assistance for Family Caregivers [place] Assessment The Program of Comprehensive Assistance for Family Caregivers (PCAFC) provides services and additional benefits to designated and approved Family Caregivers of eligible Veterans who incurred or aggravated a serious injury in the line of duty and is for individuals in need of personal care services for a minimum of six continuous months based on any one of the following: (i) An inability to perform an activity of daily living; or (ii) A need for supervision, protection, or instruction. In addition to other eligibility requirements, the PCAFC must also be found to be in the best interest of the individual in order to participate in the program. Date of assessment: 01/02/2025 Time spent in session: 65 min Dx treated: Problem Related to unspecified Psychosocial Circumstances Identified the using full name and the following other villarreal identifier(s): Full name: AWAIS PADILLA Date of : Apr Method of Contact: Video Telehealth confirms location is safe and private for visit. Temple Contact Details: Best contact number for backup/emergency communication: [phone] Temple Location/Surroundings During Visit: Temple location during visit: Home [address], [place] [address] Others present for visit with Temple's consent: Name: Paulo Padilla (spouse/Caregiver) Visit conducted by clinical video telehealth. verbal consent obtained. Location/emergency number confirmed. Reviewed limits of confidentiality with the and caregiver/applicant(s). Brief description of why the and caregiver/applicant(s) are applying to or participating in the program: Dyad reported they are undergoing reassessment for PCAFC in the hopes of being approved for level 2 as 's condition has gotten worse. As a result of Temple's decline, Caregiver can no longer work, was let go from his job two weeks ago. There are continued concerns about the 's memory, mobility and safety. Caregiver states It's long overdue. Temple stated I feel more like a kid or teenager (than an adult). I use a cane and I'm testing out a walker (described feeling self-conscious about that). Contents of reassessment completed in July 2023 included as appropriate below. was fatigued and appeared distressed about having to answer questions about her health. Safety and goal questions were asked and then Temple gave permission for Caregiver to answer the remaining questions on her behalf. CURRENT LIVING SITUATION The following live in the Temple's household: Name: Paulo Age: 38 Relationship: spouse Special needs: Name: Roro Age: 4 Relationship: son Special needs: preliminary dx of ADHD, maybe autism? Name: Maksim Age: 7 Relationship: daughter Special needs: dx of autism Name: Anmol Age: 9 Relationship: daughter Special needs: dx of ADHD Name: Alea Age: 10 Relationship: dx of ADHD Special needs: The provides care for others in the household. Duties/activities that participates in: Temple and Caregiver put kids to bed together for their kids whose bedrooms are not in the basement (daughters' bedrooms are in the basement). Temple does not feel safe going down the stairs, so stays on the main level. In the mornings, Temple helps kids with combing their hair. Their kids will come to the Temple to say goodbye before leaving for school. The does not participate in care of the home/property. The Temple is able to drive independently. Frequency: 1-2x/times a week drives alone: No most times. The only times the drives at all is to [employer] for pick-up or to get takeout food and the Caregiver is with her. The [facility] only if the Caregiver has to be with their kids. She will take her cane with her and then get a w/c at the [place] to move around the medical center. The Caregiver said if she has to drive herself for the appt then she is down for the rest of the day. EMPLOYMENT HISTORY The is not currently employed. When was last employed? 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 EDUCATION HISTORY The Temple has barriers to education. Details of barriers to education: Temple has challenges with memory and concentration. The is not attending school. The is or wishes to pursue enrollment: No SOCIAL HISTORY What does the 's typical day look like? Caregiver reported Temple typically doesn't feel well in the mornings, experiencing nausea, so he gets something for her to eat to take her meds with. He notes her nausea has improved in recent months but it's not going away. Caregiver reported needs to lay in bed for meds to kick in before she can get out of bed. Once out of bed, Temple will help with the girls hair school psychologist assistant. Often times she will go back to bed after the kids leave for school and is in bed until 10-11am. When the kids are at school, Caregiver tries to get to drink & eat something. The dyad's youngest son is home during the day but starts part-time preschool tomorrow-(2 hrs. a time/2 days a week). - Temple now showers at night after the kids are in bed so the Caregiver can 100% focus on her. She showers every other day to every 2 days, but sometimes she showers two times a day as it helps with her body aches. Caregiver gives Temple meds at lunch time and makes sure she eats something. Kids have baths/showers in the evening, which the Caregiver now does all the care for. Caregiver prepares meals and feeds the children dinner. Faviola is sleeping better with changes to medication and using recreational marijuana. Caregiver reports she is in bed sometimes by the time our kids go to bed, if not, it's right after them. What does the do for leisure/relaxation? Faviola enjoys caring for fish via a tank. She has shrimp and guppies she cares for when she is feeling good. Caregiver reports due to her ability/lack of ability to care for the fish, about half of them . CURRENT PROVIDERS The Temple is currently receiving VA Primary Care or VA Care in the Community Primary Care. Provider's name: Mar[facility]ay at [facility] The is currently receiving VA specialty care. Provider's name: vision therapy, pain clinic, OT, PT, neurology/TBI The Temple is currently receiving VA Mental Health or Substance Use treatment. Provider's name: (TC) Dr. Keli Buckley, pain psych-Dr. Milton Koch The receives care outside of [facility]. Details: also sees a neurologist at [facility] in [place]. The does not have HAILEY on file. The Temple will not be submitting community records for inclusion in their VA medical record. 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 Vertigo, TMJ, tinnitus, planter fasciitis. Medical changes since last PCAFC assessment: decline in mobility, memory The has chronic pain. Pain is primarily located: jaw, forearms, elbows, shins, feet, back, hips, neck Expectations for treatment: Continuing to work with the pain clinic and take meds. Impact of pain on quality of life: Temple's pain inhibits her ability to engage with her children. Also effects walking, navigation of stairs, and sleep. The medication just dulls the pain, it doesn't stop. She reports her pain is always at a 5/10. Current pharmacological treatments for pain: Tylenol and Advil sometimes, Gabapentin Compliance with pain medications: Compliant due to Caregiver oversight. Nonpharmacological treatments for pain: Epson salt bath and neck brace/stretching device for headaches The does not have a typical exercise/activity routine. The reports concerns regarding memory and/or cognition. How does this impact 's daily activities? Confirmed with Caregiver that the has memory issues that cause trouble recalling people and faces. Overall, the Caregiver stated if anything, it's gotten worse. Reports concerns with short term memory. Temple feels unable to trust self due to memory impairments, and seeks Caregiver's confirmation on a lot of things. Have I done that task? The Temple has had formal testing related to memory/cognition. Details: Had testing at [facility] in [place] in the past, no new testing since last reassessment MENTAL HEALTH/SUBSTANCE USE HISTORY Significant mental health/substance use history/treatment: Dx of PTSD, Major Depressive Disorder, Anxiety Disorder. History of 2 suicide attempts by hanging/strangulation (12/2022 and 09/2022). Since last reassessment, the has stopped taking Adderall. Today, the Caregiver relays the has said to him I'm in a much happier place than I was a year ago, which they attribute to stopping the Adderall. The Temple reports that there are no current or past concerns regarding IPV domestic violence or safety. The reports currently feeling safe in their home. Current alcohol use: Not at all Current substance use: uses recreational marijuana daily via smoking. She smokes a bowl a day, 2-3 times during the day and then before going to bed. The marijuana has helped to improve her appetite and sleep. Current tobacco use: Not at all has access to opioids: No Other addictive behaviors (i.e. gambling, sex, jennifer, etc.): Not at all The Temple is not currently receiving [place] Alcohol/Substance Abuse treatment. The Temple is not interested in a referral for [facility] Alcohol/Substance Abuse treatment at this time. Temple has access to firearms: Yes Firearm safety discussed with Temple: Yes Gunlock offered to Temple: No Reason: guns are kept in a gun safe and Caregiver has the villarreal LEGAL/FINANCIAL HISTORY The Temple does not report any current legal concerns. N/A The Temple does not report any current personal financial concerns. N/A CURRENT GOALS Temple's stated overall functional goals: Temple's new functional goal is to have increased mobility. As noted above, the is looking into a walker vs a cane, as a cane stops her momentum. How does the Temple report that the caregiver supports the Temple's overall goals? reported that Caregiver supports her in every possible way. SUPPORT SERVICES The Temple is not currently receiving home care services. Support services currently used:* Home Improvements and Structural Alterations (Complete) Comment: tub with charissa Discussion about [place] Personal Care Services and PCAFC enrollment/participation: Not applicable CAREGIVER INPUT SECTION Caregiver's understanding of the Program of Comprehensive Assistance for caregiver/applicant(s) and why they decided to apply: Dyad reported they are undergoing reassessment for PCAFC in the hopes of being approved for level 2 as Temple's condition has gotten worse. As a result of Temple's decline, Caregiver can no longer work, was let go from his job two weeks ago. There are continued concerns about the Temple's memory, mobility and safety. Caregiver states It's long overdue. Temple stated I feel more like a kid or teenager (than an adult). I use a cane and I'm testing out a walker (described feeling self-conscious about that). Caregiver's description of 's self-care: Feeding - Caregiver prepares food, cuts food for her and brings Temple food, eats on own. Dressing - Caregiver assists the Temple will getting her pants and underwear/Depends on to her feet for her to pull up. He puts her socks and shoes on for her. Grooming - Caregiver does not currently assist the Temple with teeth brushing, but notes the task is difficult and it's a dignity thing (that she doesn't want my help) but I am likely going to have to help her (soon). Caregiver cuts her toe nails and trims her legs. Notes they trim vs shave as it is easier. Bathing - Caregiver now does all components of bathing, getting the into the shower, washing her hair as she has difficulty lifting her hands above her head. Toileting - Caregiver notes the Temple now wears Depends/incontinence pads. She can wipe independently, but he must help her to the toilet and on and off the toilet. Overall, Caregiver reports everything from knees down is my responsibility. I walk with her and for her. Caregiver's description of how the has responded to their self-care challenges and what is/is not working: Caregiver reported is more receptive to receiving help and asking for help than she used to be. Caregiver reported is still stubborn sometimes. Type of assistance that the caregiver provides to address 's needs in completing activities of daily living: Please see above under Caregiver's description of Temple's self-care section for the aspects of ADLs that Caregiver assists Temple with. Type of assistance caregiver provides due to neurological, cognitive or mental health needs: Caregiver provides reminders for most things throughout the day and on a daily basis due to Temple's memory challenges. He administers her meds and schedules her appts. They track her appts on a physical calendar. Dyad will set one daily goal, one thing for each day that is realistic. The Caregiver stated the goal yesterday was to change the water in the fish tank and assess the condition of the fish (as several have recently ). Caregiver's description of how toddler caregiver and meal planning are performed, who performs the duties, and any established routines: Caregiver does all toddler caregiver, meal planning and care of their children. does not need assistance with the toddler caregiver and/or family activities that he/she completes. The Temple is able to drive independently. Caregiver's concerns about the Temple driving: Caregiver has concerns about the Temple's declining mobility and driving. Plans/provisions caregiver has put in place to address concerns (if any) and how those plans are working: Caregiver does majority of the driving. Temple only drives to medical appts if Caregiver must remain with their kids. For short distances, the Caregiver is always with her. If she has driven to an appt on her own, the Caregiver tracks her on his phone and has accident alert set up so I would know if something had happened and could call the police. The caregiver attends the 's medical and/or mental health appointments with him/her. Details: Since Temple's memory/balance challenges began, Caregiver provides transportation and attends all of Temple's appointments unless he needs to be with the kids or cannot bring them with. Caregiver's knowledge and understanding of the treatment recommendations for the : Caregiver reported feeling as though he has a good understanding of 's treatment recommendations. There were delay in her care, but upon recommendation from [facility] staff, reached out to Patient Advocates and the issues were addressed. The caregiver reports concerns for the 's safety. Caregiver's description of strategies used to address problems Temple has in maintaining safety as well as the type of assistance the caregiver provides: Caregiver is concerned about the 's physical safety and fall risk. He walks with Temple at all times, to navigate and avoid tripping hazards (i.e. one of their child's toys). Type of preparations the caregiver needs to complete for the Temple in their absence: Caregiver installed a camera in the living room which he can watch on his phone to monitor Temple if he needs to be away from the house. As he is no longer working, he rarely leaves home and often takes their kids with to give her a break from the noise. I'm never gone long, but I will make sure she has food and water within reach. The Caregiver does not assist the Temple with any additional concerns and/or additional care needs. SUMMARY OF VISIT: Temple and Caregiver presented together at their home for [facility]. was fatigued and appeared distressed about having to answer questions about her health. Safety and goal questions were asked and then Temple gave permission for Caregiver to answer the remaining questions on her behalf. Dyad reported undergoing reassessment today in effort to be approved for PCAFC level 2. Caregiver reported that 's condition has gotten worse since last reassessment in July 2023. Caregiver now assists with bathing, dressing, and mobility, administers Temple's medication, provides reminders for most things, helps to manage 's MH symptoms, and cares for the home and their 4 children. Temple's new functional goal is to have increased mobility. As noted above, the Temple is looking into a walker vs a cane, as a cane stops her momentum. [facility] staff will coordinate the following: - Functional Assessment Instrument -Caregiver/applicant(s) assessment -Caregiver reports they are interested in a home safety eval for a stair glide. [facility] SW to request PCP enter OT home safety eval. /los/ YAYO WEST Deposit Clerk Signed: 01/02/2025 13:53 01/03/2025 ADDENDUM STATUS: COMPLETED Consult placed awaiting PCP signature. /es/ YENNI FITZGERALD RN BSN Signed: 01/03/2025 11:30 YAYO WEST [facility] Jan 02, 2025 08:30 AM CAREGIVER CERTIFIC ATE: LOCAL TITLE: [facility] ASSESSMENT STANDARD TITLE: CAREGIVER CERTIFICATE DATE OF NOTE: JAN 02, 2025@08:30 ENTRY DATE: JAN 02, 2025@09:35:51 AUTHOR: YAYO WEST EXP COSIGNER: URGENCY: STATUS: COMPLETED [facility]ESS[facility] Has ADDENDA Program of Comprehensive Assistance for Family Caregivers Temple Assessment The Program of Comprehensive Assistance for Family Caregivers (PCAFC) provides services and additional benefits to designated and approved Family Caregivers of eligible Veterans who incurred or aggravated a serious injury in the line of duty and is for individuals in need of personal care services for a minimum of six continuous months based on any one of the following: (i) An inability to perform an activity of daily living; or (ii) A need for supervision, protection, or instruction. In addition to other eligibility requirements, the PCAFC must also be found to be in the best interest of the individual in order to participate in the program. Date of assessment: 01/02/2025 Time spent in session: 65 min Dx treated: Problem Related to unspecified Psychosocial Circumstances Identified the Temple using full name and the following other villarreal identifier(s): Full name: AWAIS PADILLA Date of : Apr Method of Contact: Video Telehealth Temple confirms location is safe and private for visit. Temple Contact Details: Best contact number for backup/emergency communication: [phone] Location/Surroundings During Visit: location during visit: Home [id number] [place], [place] [id number] Others present for visit with 's consent: Name: Paulo Padilla (spouse/Caregiver) Visit conducted by clinical video telehealth. verbal consent obtained. Location/emergency number confirmed. Reviewed limits of confidentiality with the and caregiver/applicant(s). Brief description of why the Temple and caregiver/applicant(s) are applying to or participating in the program: Dyad reported they are undergoing reassessment for PCAFC in the hopes of being approved for level 2 as Temple's condition has gotten worse. As a result of 's decline, Caregiver can no longer work, was let go from his job two weeks ago. There are continued concerns about the Temple's memory, mobility and safety. Caregiver states It's long overdue. stated I feel more like a kid or teenager (than an adult). I use a cane and I'm testing out a walker (described feeling self-conscious about that). Contents of reassessment completed in July 2023 included as appropriate below. Temple was fatigued and appeared distressed about having to answer questions about her health. Safety and goal questions were asked and then Temple gave permission for Caregiver to answer the remaining questions on her behalf. CURRENT LIVING SITUATION The following live in the Temple's household: Name: Paulo Age: 38 Relationship: spouse Special needs: Name: Roro Age: 4 Relationship: son Special needs: preliminary dx of ADHD, maybe autism? Name: Maksim Age: 7 Relationship: daughter Special needs: dx of autism Name: Anmol Age: 9 Relationship: daughter Special needs: dx of ADHD Name: Alea Age: 10 Relationship: dx of ADHD Special needs: The provides care for others in the household. Duties/activities that participates in: and Caregiver put kids to bed together for their kids whose bedrooms are not in the basement (daughters' bedrooms are in the basement). Faviola does not feel safe going down the stairs, so stays on the main level. In the mornings, Temple helps kids with combing their hair. Their kids will come to the Temple to say goodbye before leaving for school. The does not participate in care of the home/property. The Temple is able to drive independently. Frequency: 1-2x/times a week Temple drives alone: No most times. The only times the drives at all is to [employer] for pick-up or to get takeout food and the Caregiver is with her. The [facility] only if the Caregiver has to be with their kids. She will take her cane with her and then get a w[facility]c at the [place] to move around the medical center. The Caregiver said if she has to drive herself for the appt then she is down for the rest of the day. EMPLOYMENT HISTORY The is not currently employed. When was Temple last employed? 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 Faviola then worked at daughter's school briefly in 2019 but resigned due to anxiety about the possibility of an active shooter incident. EDUCATION HISTORY The has barriers to education. Details of barriers to education: has challenges with memory and concentration. The Temple is not attending school. The is or wishes to pursue enrollment: No SOCIAL HISTORY What does the 's typical day look like? Caregiver reported Faviola typically doesn't feel well in the mornings, experiencing nausea, so he gets something for her to eat to take her meds with. He notes her nausea has improved in recent months but it's not going away. Caregiver reported Faviola needs to lay in bed for meds to kick in before she can get out of bed. Once out of bed, Faviola will help with the girls hair school psychologist assistant. Often times she will go back to bed after the kids leave for school and is in bed until 10-11am. When the kids are at school, Caregiver tries to get to drink & eat something. The dyad's youngest son is home during the day but starts part-time preschool tomorrow-(2 hrs. a time/2 days a week). - Temple now showers at night after the kids are in bed so the Caregiver can 100% focus on her. She showers every other day to every 2 days, but sometimes she showers two times a day as it helps with her body aches. Caregiver gives meds at lunch time and makes sure she eats something. Kids have baths/showers in the evening, which the Caregiver now does all the care for. Caregiver prepares meals and feeds the children dinner. Temple is sleeping better with changes to medication and using recreational marijuana. Caregiver reports she is in bed sometimes by the time our kids go to bed, if not, it's right after them. What does the do for leisure/relaxation? Faviola enjoys caring for fish via a tank. She has shrimp and guppies she cares for when she is feeling good. Caregiver reports due to her ability/lack of ability to care for the fish, about half of them . CURRENT PROVIDERS The is currently receiving [facility] Primary Care or [facility] Primary Care. Provider's name: [facility] at [facility] The Temple is currently receiving VA specialty care. Provider's name: vision therapy, pain clinic, OT, PT, neurology/TBI The Temple is currently receiving [facility] Mental Health or Substance Use treatment. Provider's name: ([facility]) Dr. Keli Buckley, pain psych-Dr. Milton Koch The receives care outside of [facility]. Details: also sees a neurologist at [facility] in [place]. The does not have HAILEY on file. The Temple will not be submitting [facility] records for inclusion in their [facility] medical record. 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 Vertigo, TMJ, tinnitus, planter fasciitis. Medical changes since last PCAFC assessment: decline in mobility, memory The Temple has chronic pain. Pain is primarily located: jaw, forearms, elbows, shins, feet, back, hips, neck Expectations for treatment: Continuing to work with the pain clinic and take meds. Impact of pain on quality of life: 's pain inhibits her ability to engage with her children. Also effects walking, navigation of stairs, and sleep. The medication just dulls the pain, it doesn't stop. She reports her pain is always at a 5/10. Current pharmacological treatments for pain: Tylenol and Advil sometimes, Gabapentin Compliance with pain medications: Compliant due to Caregiver oversight. Nonpharmacological treatments for pain: Epson salt bath and neck brace/stretching device for headaches The does not have a typical exercise/activity routine. The reports concerns regarding memory and/or cognition. How does this impact 's daily activities? Confirmed with Caregiver that the Temple has memory issues that cause trouble recalling people and faces. Overall, the Caregiver stated if anything, it's gotten worse. Reports concerns with short term memory. Temple feels unable to trust self due to memory impairments, and seeks Caregiver's confirmation on a lot of things. Have I done that task? The has had formal testing related to memory/cognition. Details: Had testing at [facility] in [place] in the past, no new testing since last reassessment MENTAL HEALTH/SUBSTANCE USE HISTORY Significant mental health/substance use history/treatment: Dx of PTSD, Major Depressive Disorder, Anxiety Disorder. History of 2 suicide attempts by hanging/strangulation (12/2022 and 09/2022). Since last reassessment, the has stopped taking Adderall. Today, the Caregiver relays the Temple has said to him I'm in a much happier place than I was a year ago, which they attribute to stopping the Adderall. The Temple reports that there are no current or past concerns regarding IPV domestic violence or safety. The Temple reports currently feeling safe in their home. Current alcohol use: Not at all Current substance use: Temple uses recreational marijuana daily via smoking. She smokes a bowl a day, 2-3 times during the day and then before going to bed. The marijuana has helped to improve her appetite and sleep. Current tobacco use: Not at all has access to opioids: No Other addictive behaviors (i.e. gambling, sex, jennifer, etc.): Not at all The Temple is not currently receiving [place] Alcohol/Substance Abuse treatment. The is not interested in a referral for [place] Alcohol/Substance Abuse treatment at this time. has access to firearms: Yes Firearm safety discussed with Temple: Yes Gunlock offered to : No Reason: guns are kept in a gun safe and Caregiver has the villarreal LEGAL/FINANCIAL HISTORY The does not report any current legal concerns. N/A The does not report any current personal financial concerns. N/A CURRENT GOALS Temple's stated overall functional goals: Temple's new functional goal is to have increased mobility. As noted above, the Temple is looking into a walker vs a cane, as a cane stops her momentum. How does the report that the caregiver supports the Temple's overall goals? reported that Caregiver supports her in every possible way. SUPPORT SERVICES The Temple is not currently receiving home care services. Support services currently used:* Home Improvements and Structural Alterations (Complete) Comment: tub with charissa Discussion about [place] Personal Care Services and PCAFC enrollment/participation: Not applicable CAREGIVER INPUT SECTION Caregiver's understanding of the Program of Comprehensive Assistance for caregiver/applicant(s) and why they decided to apply: Dyad reported they are undergoing reassessment for PCAFC in the hopes of being approved for level 2 as 's condition has gotten worse. As a result of Temple's decline, Caregiver can no longer work, was let go from his job two weeks ago. There are continued concerns about the 's memory, mobility and safety. Caregiver states It's long overdue. Temple stated I feel more like a kid or teenager (than an adult). I use a cane and I'm testing out a walker (described feeling self-conscious about that). Caregiver's description of 's self-care: Feeding - Caregiver prepares food, cuts food for her and brings Temple food, eats on own. Dressing - Caregiver assists the Temple will getting her pants and underwear/Depends on to her feet for her to pull up. He puts her socks and shoes on for her. Grooming - Caregiver does not currently assist the Temple with teeth brushing, but notes the task is difficult and it's a dignity thing (that she doesn't want my help) but I am likely going to have to help her (soon). Caregiver cuts her toe nails and trims her legs. Notes they trim vs shave as it is easier. Bathing - Caregiver now does all components of bathing, getting the Temple into the shower, washing her hair as she has difficulty lifting her hands above her head. Toileting - Caregiver notes the now wears Depends/incontinence pads. She can wipe independently, but he must help her to the toilet and on and off the toilet. Overall, Caregiver reports everything from knees down is my responsibility. I walk with her and for her. Caregiver's description of how the Temple has responded to their self-care challenges and what is/is not working: Caregiver reported is more receptive to receiving help and asking for help than she used to be. Caregiver reported is still stubborn sometimes. Type of assistance that the caregiver provides to address Temple's needs in completing activities of daily living: Please see above under Caregiver's description of 's self-care section for the aspects of ADLs that Caregiver assists Temple with. Type of assistance caregiver provides due to neurological, cognitive or mental health needs: Caregiver provides reminders for most things throughout the day and on a daily basis due to Temple's memory challenges. He administers her meds and schedules her appts. They track her appts on a physical calendar. Dyad will set one daily goal, one thing for each day that is realistic. The Caregiver stated the goal yesterday was to change the water in the fish tank and assess the condition of the fish (as several have recently ). Caregiver's description of how toddler caregiver and meal planning are performed, who performs the duties, and any established routines: Caregiver does all toddler caregiver, meal planning and care of their children. does not need assistance with the toddler caregiver and/or family activities that he/she completes. The is able to drive independently. Caregiver's concerns about the driving: Caregiver has concerns about the Temple's declining mobility and driving. Plans/provisions caregiver has put in place to address concerns (if any) and how those plans are working: Caregiver does majority of the driving. only drives to medical appts if Caregiver must remain with their kids. For short distances, the Caregiver is always with her. If she has driven to an appt on her own, the Caregiver tracks her on his phone and has accident alert set up so I would know if something had happened and could call the police. The caregiver attends the Temple's medical and/or mental health appointments with him/her. Details: Since 's memory/balance challenges began, Caregiver provides transportation and attends all of 's appointments unless he needs to be with the kids or cannot bring them with. Caregiver's knowledge and understanding of the treatment recommendations for the : Caregiver reported feeling as though he has a good understanding of 's treatment recommendations. There were delay in her care, but upon recommendation from [facility] staff, reached out to Patient Advocates and the issues were addressed. The caregiver reports concerns for the 's safety. Caregiver's description of strategies used to address problems Temple has in maintaining safety as well as the type of assistance the caregiver provides: Caregiver is concerned about the Temple's physical safety and fall risk. He walks with Temple at all times, to navigate and avoid tripping hazards (i.e. one of their child's toys). Type of preparations the caregiver needs to complete for the in their absence: Caregiver installed a camera in the living room which he can watch on his phone to monitor Temple if he needs to be away from the house. As he is no longer working, he rarely leaves home and often takes their kids with to give her a break from the noise. I'm never gone long, but I will make sure she has food and water within reach. The Caregiver does not assist the with any additional concerns and/or additional care needs. SUMMARY OF VISIT: and Caregiver presented together at their home for [facility]. was fatigued and appeared distressed about having to answer questions about her health. Safety and goal questions were asked and then Temple gave permission for Caregiver to answer the remaining questions on her behalf. Dyad reported undergoing reassessment today in effort to be approved for PCAFC level 2. Caregiver reported that Temple's condition has gotten worse since last reassessment in July 2023. Caregiver now assists with bathing, dressing, and mobility, administers 's medication, provides reminders for most things, helps to manage 's MH symptoms, and cares for the home and their 4 children. 's new functional goal is to have increased mobility. As noted above, the is looking into a walker vs a cane, as a cane stops her momentum. [facility] staff will coordinate the following: -Temple Functional Assessment Instrument -Caregiver/applicant(s) assessment -Caregiver reports they are interested in a home safety eval for a stair glide. [facility] SW to request PCP enter OT home safety eval. /los/ YAYO WEST Deposit Clerk Signed: 01/02/2025 13:53 01/02/2025 ADDENDUM STATUS: COMPLETED Caregiver reports they are interested in a home safety eval for a stair glide. [facility] to request PCP enter OT home safety eval. /los/ YAYO WEST Deposit Clerk Signed: 01/02/2025 13:54 Receipt Acknowledged By: * AWAITING SIGNATURE * MARÍA SEAY 01/03/2025 11:24 /los/ YENNI FITZGERALD RN BSN 01/03/2025 ADDENDUM STATUS: COMPLETED Consult placed awaiting PCP signature. /los/ YENNI FITZGERALD RN BSN Signed: 01/03/2025 11:30 YAYO WEST [facility]
--- OUTSIDE RECORDS SUMMARY | 2025-01-11 10:11 | XMS_ITS | Encounter Summary ---
Author Name [facility] [place] [facility] [place] Organization [facility] [place] Address [address] [place] [id number] Care Team Providers Care Paper Production Engineer Name Role Phone LONA, CINDY Primary Care Provider Unavail able Selected Encounter This section includes the information on record at [place] for the Encounter. Date/Time Encounter Type Encounter Description Reason Provider Source Aug 23, 2024 02:24 PM EMERGENCY DEPT VISIT [facility] EMERGENCY DEPT ICD-10-CM R30.[address] [facility] Encounter Template Text not used by [place] Assessments - Encounter Diagnoses This section includes the primary and secondary diagnoses documented for the Encounter. Date/Time Primary/Secondary Diagnosis Diagnosis Name Provider Source Aug 23, 2024 05:07 PM PRIMARY Dysuria RANDAL CHAMBERLAIN [facility] Aug 23, 2024 05:07 PM SECONDARY Acute bronchitis, unspecified RANDAL CHAMBERLAIN [facility] Plan of Treatment: Future Appointments (+ [...] The data comes from all [place] treatment [facility]. Appointment Date/Time Appointment Type Appointme nt Facility Name Sep 05, 2024 05:20 PM AMBULATORY - REHAB MEDICIN E [facility] Sep 19, 2024 01:00 PM AM[place]ULATORY - NONE [place] [facility] Oct 04, 2024 09:00 AM AMBULATORY - REHAB MEDICIN E [facility] Oct 10, 2024 09:30 AM AMBULATORY - REHAB MEDICIN E [facility] Oct 25, 2024 10:00 AM [facility] [place] [facility] Oct 25, 2024 05:10 PM AMBULATORY - REHAB MEDICIN E [facility] Nov 15, 2024 12:45 PM AM[place]ULATORY - NONE [place] [facility] Nov 22, 2024 09:30 AM AM[facility]ORY - [place]ONE [place] [facility] Nov 22, 2024 10:30 AM [facility] Nov 25, 2024 09:30 AM AMBULATORY - SURGERY [facility] Nov 26, 2024 09:29 AM [facility] Nov 30, 2024 11:00 AM AMBULATORY - [place] [facility] Dec 02, 2024 08:00 AM AMBULATORY - REHAB MEDICIN E [facility] Dec 09, 2024 08:30 AM [place]ORY - [place]ONE [place] [facility] Dec 09, 2024 09:30 AM AM[place]ORY - NONE [place] [facility] Dec 09, 2024 10:30 AM AM[place]ORY - NONE [place] [facility] Dec 09, 2024 10:45 AM AMBULATORY - [place] [facility] Dec 13, 2024 01:00 PM AMBULATORY - REHAB MEDICIN E [facility] Dec 16, 2024 07:00 AM AM[place]ORY - NONE [place] [facility] Dec 21, 2024 10:00 AM AMBULATORY - REHAB MEDICIN E [facility] Lab Results: +/- 30 [...] Range Comment Aug 23, 2024 03:57 PM [facility] COVID-19 AND FLU/RSV DIAG PANEL(CEPHEID) Specimen Typ e: NASOPHARYNGEAL Comment: Cepheid GeneXpert (618) Ordering Provider: RANDAL CHAMBERLAIN Report Released Date/Time: Aug 23, 2024 03:43 PM Reporting Lab: [facility] [id number] Performing Lab: [facility] [address] COVID-19 (CEPHEID) Not Detected Not Detected INFLUENZA A (PCR) Not Detected Not Detected INFLUENZA B (PCR) Not Detected Not Detected RSV (PCR) Not Detected Not Detected Aug 23, 2024 03:57 PM [facility] HCG, QUAL Specimen Type: URINE Comment: Cepheid GeneXpert (618) Ordering Provider: RANDAL CHAMBERLAIN Report Released Date/Time: Aug 23, 2024 03:47 PM Reporting Lab: [facility] [address] Performing Lab: [facility] [id number] HCG, QUAL NEGATIVE -neg- Aug 23, 2024 03:30 PM [facility] URINALYSIS Specimen Type: URINE No comment entered. Ordering Provider: RANDAL CHAMBERLAIN Report Released Date/Time: Aug 23, 2024 03:43 PM Reporting Lab: [facility] [address] Performing Lab: [facility] [address] URINE COLOR LIGHT-YELLOW SPECIFIC GRAVITY 1.014 1.003-1.03 [...] 02:40 PM 98.6 76 120/84 14 5 [facility] Social History: Smoking Status (Most current) [...] 27, 2023 03:30 PM VA-TOBACCO FORMER USER [facility] Tobacco Use History This section includes a history of the smoking, or tobacco-related health factors, that were collected on or before the date of the Encounter. The data comes from the [facility] where the Encounter took place. Date/Time Smoking Status/Tobacco Use Comment F acdarline Nov 27, 2023 03:30 PM VA-TOBACCO QUIT 5 TO < 15 YRS [facility] Jan 14, 2023 09:03 AM VA-TOBACCO FORMER USER [facility] Jan 14, 2023 09:03 AM VA-TOBACCO QUIT 5 TO < 15 YRS [facility] Radiology Reports: +/- 30 [...] CT (CAP) CHEST/ABD /PELVIS (P): AWAIS PADILLA MODESTO [id number] -1990 F Exm Date: SEP 19, 2024@12:58 Req Phys: KURT NEWELL Pat Loc: [facility] (Req'g Loc) Img Loc: CT IMAGING Service: Unknown Screen: [place] [address] (Case [id number] COMPLETE) CT (CAP) CHEST W CONTRAST (CT Detailed) CPT:27426 Contrast Media : Non-ionic Iodinated Reason for Study: History of splenomegaly (Case 465 COMPLETE) CT (CAP) ABDOMEN/PELVIS W CONTRAS(CT Detailed) CPT:60706 Contrast Media : Non-ionic Iodinated Clinical History: Theodore IS NOT under investigation for COVID-19 or is COVID-19 negative Defer to radiologist for final protocol. History of splenomegaly Responsible provider name and phone number to notify for critical findings if other than user placing the order and pager listed below: User placing orders pager: [phone] LAST 3: Collection DT Specimen Test Name [...] 19, 2024 Date Verified: SEP 19, 2024 Recreation Worker E-Sig:/ES/WOLFGANG MILLER DO Report: EXAMINATION: CT (CAP) CHEST W CONTRAST, CT (CAP) ABDOMEN/PELVIS W CONTRAST PROVIDED CLINICAL INFORMATION: Reason for Study: History of splenomegaly Theodore IS NOT under investigation for COVID-19 or is COVID-19 negative Defer to radiologist for final protocol. History of splenomegaly Responsible provider name and phone number to notify for critical findings if other than user placing the order and pager listed below: User placing orders pager: [phone] LAST 3: Collection DT Specimen History of [...] Primary Interpreting Staff: WOLFGANG MILLER DO, RADIOLOGIST (Recreation Worker) /WOLFGANG LORENZ [facility] Aug 23, 2024 04:06 PM CHEST 2 VIEWS PA A ND LAT: AWAIS PADILLA [id number] -1990 F Exm Date: AUG 23, 2024@16:06 Req Phys: RANDAL CHAMBERLAIN Loc: [facility] EMERGENCY DEPT WALK-IN ( Im Loc: MAIN X-RAY Service: Unknown Screen: [place] [address] (Case [id number] COMPLETE) CHEST 2 VIEWS PA AND LAT (RAD Detailed) CPT:19956 Reason for Study: same Clinical History: IS under investigation (PUI) for COVID-19 or is COVID-19+ Cough x 1 day Responsible provider name and phone number to notify for critical findings if other than user placing the order and pager listed below: User placing orders pager: LAST CREATININE 0.6 (07/24/24) Report Status: Verified Date Reported: AUG 23, 2024 Date Verified: AUG 23, 2024 Recreation Worker E-Sig:/ES/CODY CASTILLO MD Report: CHEST 2 VIEWS PA AND LAT 08/23/2024 INDICATION: same COMPARISON: None. FINDINGS: Heart and pulmonary vasculature are within normal limits for size. Lungs are clear. Bones are unremarkable. Impression: No visible acute cardiopulmonary disease. Primary Interpreting Staff: CODY CASTILLO MD, RADIOLOGIST (Recreation Worker) /CODY RIOS [facility] Jul 24, 2024 03:[address] (AP) ABDOMEN/PE LVIS (P): AWAIS PADILLA [id number] 1990 F Exm Date: JUL 24, 2024@15:44 Req Phys: ÁNGEL ESPARZA Evelyn Loc: [facility] EMERGENCY DEPT WALK-IN (Re Img Loc: CT IMAGING Service: Unknown Screen: [place] [address] (Case 41 COMPLETE) CT (AP) ABDOMEN/PELVIS W CONTRAST(CT Detailed) CPT:76580 Contrast Media : Non-ionic Iodinated Reason for [...] PLASMA .CREAT EGFR(CKD-E >90 Ref: >=60 Allergies: (Curran only) METOPROLOL (Jan 14, 2023) REGLAN (Jan 14, 2023) Defer to radiologist for final CT protocol. Contact number for responsible provider who can be reached for any questions or notifications of critical findings: tish ext [phone] Per Joint Commission Standards, by signing this diagnostic imaging request the ordering provider confirms they have considered patients age and recent imaging history. Report Status: Verified Date Reported: JUL 24, 2024 Date Verified: JUL 24, 2024 Recreation Worker E-Sig: Report: CT (AP) ABDOMEN/PELVIS W [...] mild splenomegaly. [place] PHYSICIAN: Nunu Jackson MD -[id number] 07/24/2024 14:20 PDT [facility] National Teleradiology Program [phone] (For Medical Practitioner Use Only) Attention Patients / Veterans: If you have questions or concerns about these test results, please contact your ordering provider or primary care team. Primary Interpreting Staff: RADIOLOGY,OUTSIDE SERVICE, Staff Physician / RADIOLOGY,OUTSIDE SERVICE [facility] Pathology Reports: +/- 30 [...] comes from all [place] treatment facilities. Date/Time Pathology Report Provider Source Aug 23, 2024 03:57 PM LR MICROBIOLOGY RE PORT: Reporting Lab: [facility] [CLIA# [id number]] [place] [address] Accession [UID]: [id number] [[id number]] Received: Aug 23, 2024@15:57 Collection sample: URINE Collection date: Aug 23, 2024 15:57 Provider: RANDAL CHAMBERLAIN Comment on specimen: RECEIVED IN STERILE CUP Test(s) ordered: CULTURE & SUSCEPTIBILITY...... completed: Aug 25, 2024 * BACTERIOLOGY FINAL REPORT => Aug 25, 2024 07:44 TECH CODE: [id number] CULTURE RESULTS: LESS THAN 10,000 CFU/ML Bacteriology Remark(s): THIS REPORT IS FINAL =--=--=--=--=--=--=--=--=--=--=--=- -=--=--=--=--=--=--=--=--=--=--=--= --=--=-- Performing Laboratory: Bacteriology Report Performed By: [facility] [CLIA# [id number]] [address] [place] [address] [facility] Encounter Notes: All associated encounter notes This section contains the clinical notes associated to the Encounter. Date/Time Encounter Note(s) Provider Source Aug 23, 2024 05:00 PM NURSING EMERGENCY DEPT NOTE: LOCAL TITLE: EMERGENCY DEPT NURSING NOTE STANDARD TITLE: NURSING EMERGENCY DEPT NOTE DATE OF NOTE: AUG 23, 2024@17:00 ENTRY DATE: AUG 23, 2024@17:00:42 AUTHOR: MING ERAZO EXP LYUBOVIGNER: URGENCY: STATUS: COMPLETED Emergency Department Discharge Education Personal Protective Equipment (PPE): Patient was in mask on arrival, Patient was in mask on arrival, patient remained masked for entire visit, RN used PPE during every encounter with the patient, MD/PA/CORPORATE QUALITY ASSURANCE MANAGER used PPE during every encounter with the [...] REGISTERED NURSE Signed: 08/23/2024 17:01 JAMAR ERAZO [facility] Aug 23, 2024 04:57 PM EMERGENCY DEPT EDUCATION NOTE: LOCAL TITLE: EMERGENCY DEPT DISCHARGE INSTRUCTIONS STANDARD TITLE: EMERGENCY DEPT EDUCATION NOTE DATE OF NOTE: AUG 23, 2024@16:57:29 ENTRY DATE: AUG 23, 2024@16:57:29 AUTHOR: RANDAL CHAMBERLAINIGNER: URGENCY: STATUS: COMPLETED DISCHARGE INSTRUCTIONS IMPORTANT: We [...] below. You were treated today by Randal Chamberlain MD. Special Information Drink plenty of fluids. [...] the emergency department if warning signs occur.Use xabn-vyp-duqxbjp medicines like ibuprofen or Tylenol as needed [...] exposed to secondhand smoke. -You may use ftjb-xgs-vtujpsn medicine to control fever or pain, unless [...] loosen secretions in the nose and lungs. -Vqef-bfa-fmuxmmk cough, cold, and sore-throat medicines will not shorten the length of the illness, but they may be helpful to reduce symptoms. If you have high blood pressure, don't use decongestants without your provider's permission . If you take other prescribed medicine, contact your provider to discuss amah-bqp-bekaypr medicines before taking them. -If you were [...] TO THE NEAREST EMERGENCY ROOM // RANDAL CHAMBERLAIN MD PHYSICIAN Signed: 08/23/2024 16:57 RANDAL CHAMBERLAIN [facility] Aug 23, 2024 04:22 PM NURSING EMERGENCY DEPT NOTE: LOCAL TITLE: EMERGENCY DEPT NURSING NOTE STANDARD TITLE: NURSING EMERGENCY DEPT NOTE DATE OF NOTE: AUG 23, 2024@16:22 ENTRY DATE: AUG 23, 2024@16:22:22 AUTHOR: MING ERAZO EXP COSIGNER: URGENCY: STATUS: COMPLETED Nursing Focused [...] in low position and locked /es/ MING ERAZO, RN, BSN REGISTERED NURSE Signed: 08/23/2024 16:29 JAMAR ERAZO [facility] Aug 23, 2024 03:43 PM PHYSICIAN EMERGENCY DEPT NOTE: LOCAL TITLE: EMERGENCY DEPT NOTE STANDARD TITLE: PHYSICIAN EMERGENCY DEPT NOTE DATE OF NOTE: AUG 23, 2024@15:43 ENTRY DATE: AUG 23, 2024@15:43:45 AUTHOR: RANDAL CHAMBERLAIN COSIGNER: URGENCY: STATUS: COMPLETED Nurse's note reviewed [...] less than 60 - Maternal grandfather of [place] at 50 8. History of cerebrospinal fluid [...] ACTIVE BEDTIME 2) Non-VA ONDANSETRON TAB 4MG [id number] ACTIVE 7 Total Medications SH: Vapes CBD [...] insight/judgement EKG: None performed. Labs: Reporting Lab: [facility] [CLIA# [id number]] [place] [address] Report Released Date/Time: Aug 23, 2024@16:21 Provider: RANDAL CHAMBERLAIN Specimen: URINE. [facility] [id number] Specimen Collection Date: Aug 23, 2024@15:57 Test name Result units Ref. range Site Code HCG, QUAL NEGATIVE Ref: -neg- [618] Eval: For indeterminate results, repeat test with new specimen in 48hr Reporting Lab: [facility] [CLIA# [id number]] [place] [address] Report Released Date/Time: Aug 23, 2024@16:41 Provider: RNADAL CHAMBERLAIN Specimen: NASOPHARYNGEAL. COV [id number] Specimen Collection [...] [618] Comment: Cepheid GeneXpert (618) Reporting Lab: [facility] [CLIA# [id number]] [place] [address] Report Released Date/Time: Aug 23, 2024@16:14 Provider: RANDAL CHAMBERLAIN Specimen: URINE. UA 1105 [id number] Specimen Collection [...] viral induced bronchitis. Recommended that she use ovph-vnd-uevuhxf medicines like ibuprofen or Tylenol as needed [...] (Primary) Acute Bronchitis, unspecified (ICD-10-CM J20.9) Kam Chamberlain MD /los/ RANDAL CHAMBERLAIN MD PHYSICIAN Signed: 08/23/2024 17:21 RANDAL CHAMBERLAIN [facility] Aug 23, 2024 02:37 PM NURSING EMERGENCY [...] started 1 week ago. Pt seen at [facility] in [place] and no UTI noted and called to [...] ACTIVE BEDTIME 2) Non-VA ONDANSETRON TAB 4MG N3DGUCO ACTIVE 7 Total Medications Current Problems: Exposure to potentially hazardous substaTraumatic brain injury (SCT 621914826) Temporomandibular joint disorder (SCT 41Unintentional weight loss (SCT 218340594) Mood disorder (SCT 11466176) Headache (SCT 00146504) Family history: Myocardial infarction atHistory of cerebrospinal fluid leak (ICD-10-CM R69.) History of gestational diabetes mellitusGeneralized enlarged lymph nodes ([facility] [id number]) Splenomegaly ([facility] [id number]) Identification of Seniors at Risk (ISAR):* Defer screen Age 34 Suicide Screen: [place] Suicide Severity Rating Scale (C-SSRS) screener 1. [...] responses to other questions. /los/ HUE MURRELL JR RN Braille Duplicating Machine Operator Nurse Card Grader Signed: 08/23/2024 14:41 HUE MURRELL JR [facility]
--- OUTSIDE RECORDS SUMMARY | 2025-01-11 10:11 | XMS_ITS | Encounter Summary ---
Author Name [facility] Organization [facility] [place] Address [address] [place] [address] Care Team Providers Care Primary Care Provider Name Role Phone CINDY ZAMORANO Primary Care Provider Unavail able Selected Encounter This section includes the information on record at [place] for the Encounter. Date/Time Encounter Type Encounter Description Reason Pro vider Source Jan 06, 2025 03:00 PM Outpatient Encounter OCCUPATIONAL THERAPY IHE Encounter Template Text not used by [place] Plan of Treatment: Future Appointments (+ 6 months) and Future Tests (+/- 45 days) The Plan of Treatment section includes future care activities for the patient from all [place] treatmentfacilities. This section includes future appointments and future orders which are active, pending or scheduled. Future Appointments This section includes appointments that were scheduled to occur 6 months from the date of the Encounter, up to a maximum of 20 appointments. The data comes from all [place] treatment facilities. Appointment Date/Time Appointment Type Appointme nt Facility Name Jan 10, 2025 09:00 AM AMBULATORY - REHAB MEDICIN [facility] Jan 16, 2025 10:00 AM AMBULATORY - REHAB MEDICIN [facility] Jan 18, 2025 09:00 AM AMBULATORY - REHAB MEDICIN [facility] Jan 23, 2025 09:00 AM AMBULATORY - REHAB MEDICIN [facility] Jan 25, 2025 09:00 AM AMBULATORY - REHAB MEDICIN E [facility] February 21, 2025 10:00 AM AMBULATORY - NONE ANIVAL GARCIA [facility] February 21, 2025 11:00 AM AMBULATORY - MEDICINE KARTIK KEY [facility] February 28, 2025 01:00 PM AMBULATORY - REHAB MEDICIN E [facility] March 14, 2025 02:00 PM AMBULATORY - REHAB MEDICIN [facility] Apr 28, 2025 09:30 AM AMBULATORY - SURGERY [facility] Active, Pending, and Scheduled Orders This section includes a listing of several types of active, pending, and scheduled orders, including clinic medications orders, diagnostic test orders, procedure orders and consult orders; where the start date of the order is 45 days before the date of the Encounter or 45 days after the date of theEncounter. The data comes from all [place] treatment facilities. Test Date/Time Test Type Test Details Facility Name Nov 25, 2024 10:22 AM Consult Order OT OCCUPATIONAL THERAPY OUTPT VISION THERAPY [facility] Nov 30, 2024 12:00 AM Laboratory - Chemistry Order CBC BLOOD STAT SP ONCE [facility] Nov 30, 2024 12:00 AM Laboratory - Chemistry Order PROTHROMBIN TIME/INR PLASMA STAT SP [facility] Nov 30, 2024 12:00 AM Laboratory - Chemistry Order CREATININE(INCLUDES EGFR) PLASMA STAT SP ONCE [facility] Dec 01, 2024 11:53 AM Consult Order CSP PCAFC FUNCTIONAL ASSESSMENT INSTRUMENT [facility]PT [facility] Jan 03, 2025 12:08 PM Consult Order OT OCCUPATIONAL THERAPY OUTPT HOME ACCESSIBILITY [facility] Jan 05, 2025 03:02 PM Consult Order ENT OUTPT [facility] Lab Results: +/- 30 days of the [...] Range Comment Dec 09, 2024 08:34 AM [facility] PROTHROMBIN TIME/INR Specimen Type: PLASMA No comment entered. Ordering Provider: STEPHEN FRANCOIS Report Released Date/Time: Dec 06, 2024 09:29 AM Reporting Lab: [facility] [id number] Performing Lab: [facility] [id number] .INR 1.1 0.8-1.1 .PT 12.9 s H 9.4-12.5 Dec 09, 2024 08:34 AM [facility] CREATININE(INCLUDES EGFR) Specimen Type: PLASMA No comment entered. Ordering Provider: STEPHEN FRANCOIS Report Released Date/Time: Dec 06, 2024 09:29 AM Reporting Lab: [facility] [id number] Performing Lab: [facility] [id number] CREATININE 0.6 mg/dL 0.5-1.0 .CREAT EGFR(CKD-EPI) >90 >60 Dec 09, 2024 08:34 AM [facility] CBC & DIFF Specimen Type: BLOOD Comment: Automated Differential Performed Ordering Provider: STEPHEN FRANCOIS Report Released Date/Time: Dec 06, 2024 09:29 AM Reporting Lab: [facility] [id number] Performing Lab: [facility] [id number] WBC 4.4 4.0-11.0 RBC 4.42 4.00-5.40 HGB [...] 27, 2023 03:30 PM VA-TOBACCO FORMER USER [facility] Tobacco Use History This section includes a history of the smoking, or tobacco-related health factors, that were collected on or before the date of the Encounter. The data comes from the [place] facility where the Encounter took place. Date/Time Smoking Status/Tobacco Use Comment F acility Nov 27, 2023 03:30 PM VA-TOBACCO QUIT 5 TO < 15 YRS [facility] Jan 14, 2023 09:03 AM VA-TOBACCO FORMER USER [facility] Jan 14, 2023 09:03 AM VA-TOBACCO QUIT 5 TO < 15 YRS [facility] Radiology Reports: +/- 30 days of [...] 2024 07:03 AM MRI-BRAIN (P): AWAIS PADILLA [id number] -1990 F Exm Date: DEC 16, 2024@07:03 Req Phys: STEPHEN FRANCOIS Loc: [facility] CORPORATE LOGISTICS MANAGER CONSULT-A (Re Img Loc: MRI IMAGING Service: Unknown Screen: [place] [address] (Case [id number] COMPLETE) MRI BRAIN/BRAINSTEM W/O CONTRAST (MRI Detailed) CPT:83186 Reason for Study: Myelopathy Clinical History: Did the ordering provider speak with a product safety consultant regarding this imaging exam?No Brain MRI without contrast Myelopathy LAST CREATININE 0.6 (11/22/24) Allergies: METOPROLOL (Jan 14, 2023) REGLAN (Jan 14, 2023) My pager number on record is: [phone]. The pager number/cell phone number above is [...] 16, 2024 Date Verified: DEC 16, 2024 Pairer E-Sig:/ES/SUJIT DENIS MD Report: MRI BRAIN/BRAINSTEM W/O [...] Primary Interpreting Staff: SUJIT DENIS MD, RADIOLOGIST (Pairer) /[facility] [place] SUJIT DENIS [facility] Dec 09, 2024 09:[address] MYELOGRAM THORA CIC (P): AWAIS PADILLA [id number] -1990 F Exm Date: DEC 09, 2024@09:52 Req Phys: STEPHEN FRANCOIS Pat Loc: [facility] NEUROSURG CORPORATE LOGISTICS MANAGER CONSULT-A (Re Img Loc: CT IMAGING Service: Unknown Screen: [place] [address] (Case [id number] COMPLETE) CT MYELOGRAM THORACIC SPINE (CT Detailed) CPT:46097 CPT Modifiers : 59 DISTINCT PROCEDURAL SERVICE [...] .CREAT EGFR(CKD-E >90 Ref: >=60 Allergies: ([place] only) METOPROLOL (Jan 14, 2023) REGLAN (Jan 14, 2023) Defer to radiologist for final CT protocol. User Placing Order: STEPHEN FRANCOIS - Office Phone: My pager number on record is: [phone]. The pager number/cell phone number above is NOT correct for reporting critical results, I have entered my correct number below: My correct contact # for critial results is:neurosurgery senior communications engineer Trainees only: Enter your staff provider's info here: Per Joint Commission Standards, by signing this diagnostic imaging request the ordering provider confirms they have considered patients age and recent imaging history. Report Status: Verified Date Reported: DEC 09, 2024 Date Verified: DEC 09, 2024 Pairer E-Sig:/ES/CARITO POLANCO MD Report: CT Thoracic Spine [...] Primary Interpreting Staff: CARITO POLANCO MD, RADIOLOGIST (Pairer) /CARITO TOLENTINO [facility] Dec 09, 2024 08:50 AM MYELOGRAM THORACIC (P): AWAIS PADILLA [id number] -1990 F Exm Date: DEC 09, 2024@08:50 Req Phys: STEPHEN FRANCOIS Loc: [facility] NEUROSURG CORPORATE LOGISTICS MANAGER CONSULT-A (Re Img Loc: MAIN X-RAY Service: Unknown Screen: [place] [address] (Case [id number] COMPLETE) MYELOGRAM THORACIC VIA LUMBAR INJ(RAD Detailed) CPT:02842 Reason for Study: Eval for arachnoid web or cyst at T6 level Clinical History: myelopathy Outside hosptial Thoracic mri w wo contrast is loaded into [facility]. Please do comparison . thank you Responsible provider name and phone number to notify for critical findings if other than user placing the order and pager listed below: User placing orders pager: [phone] Neurosurgery senior communications engineer LAST CREATININE 0.6 (11/22/24) Report Status: Verified Date Reported: DEC 09, 2024 Date Verified: DEC 09, 2024 Pairer E-Sig:/ES/CARITO POLANCO MD Report: PROCEDURE: Lumbar puncture [...] placed in CPRS. I also called ALYSIA Sanot in the Short Stay Unit for handoff communication/instructions . Impression: Successful lumbar puncture with thoracic myelography. Report Sign Date/Time: 12/09/2024 10:38 AM Primary Interpreting Staff: CARITO POLANCO MD, RADIOLOGIST (Pairer) /CARITO TOLENTINO [facility] Encounter Notes: All associated encounter notes This section contains the clinical notes associated to the Encounter. Date/Time Encounter Note(s) Provider Source Jan 06, 2025 03:45 PM NO SHOW NOTE: LOCAL TITLE: NO SHOW/CANCELLATION CLINIC NOTE STANDARD TITLE: NO SHOW NOTE DATE OF NOTE: JAN 06, 2025@15:45 ENTRY DATE: JAN 06, 2025@15:45:38 AUTHOR: BAM CORRALES AND EXP COSIGNER: URGENCY: STATUS: COMPLETED not seen for scheduled appointment due to: No Show Appointment Rescheduled: No will need to be rescheduled Please review patient chart and medications for renewal needs (if appropriate). /los/ BAM CORRALES MS, OTR/L, CLVT OCCUPATIONAL THERAPIST Signed: 01/06/2025 15:46 BAM CORRALES [facility]
--- OUTSIDE RECORDS SUMMARY | 2025-01-11 10:11 | XMS_ITS | Encounter Summary ---
Author Name [facility] [facility] [place] Address [address] [place] [address] Care Team Providers Care Jacket Preparer Name Role Phone CINDY ZAMORANO Primary Care Provider Unavail able Selected Encounter This section includes the information on record at [place] for the Encounter. Date/Time Encounter Type Encounter Description Reason Pro vider Source Dec 09, 2024 11:44 AM Outpatient Encounter ADMIN PAT ACTIVTIES (MASNONCT) IHE Encounter Template Text not used by [place] Plan of Treatment: Future Appointments (+ 6 months) and Future Tests (+/- 45 days) The Plan of Treatment section includes future care activities for the patient from all [place] treatmentfacilities. This section includes future appointments and future orders which are active, pending or scheduled. Future Appointments This section includes appointments that were scheduled to occur 6 months from the date of the Encounter, up to a maximum of 20 appointments. The data comes from all [place] treatment facilities. Appointment Date/Time Appointment Type Appointme nt Facility Name Dec 13, 2024 01:00 PM AMBULATORY - REHAB MEDICIN E [facility] Dec 16, 2024 07:00 AM [facility] Dec 21, 2024 10:00 AM [facility] Dec 22, 2024 11:00 AM [facility] Dec 23, 2024 08:00 AM AMBULATORY - REHAB MEDICIN E [facility] Dec 28, 2024 01:00 PM AMBULATORY - REHAB MEDICIN E [facility] Dec 29, 2024 10:00 AM AMBULATORY - REHAB MEDICIN E [facility] Jan 02, 2025 08:30 AM AMBULATORY - REHAB MEDICIN E [facility] Jan 05, 2025 01:58 PM [facility] Jan 06, 2025 03:00 PM AMBULATORY [...] 21, 2025 10:00 [facility] February 21, 2025 11:00 AM AMBULATORY - MEDICINE [facility] February 28, 2025 01:00 PM AMBULATORY - REHAB MEDICIN E [facility] March 14, 2025 02:00 PM AMBULATORY - REHAB MEDICIN E [facility] Apr 28, 2025 09:30 AM AMBULATORY - SURGERY [facility] Active, Pending, and Scheduled Orders This section includes a listing of several types of active, pending, and scheduled orders, including clinic medications orders, diagnostic test orders, procedure orders and consult orders; where the start date of the order is 45 days before the date of the Encounter or 45 days after the date of theEncounter. The data comes from all [place] treatment facilities. Test Date/Time Test Type Test Details Facility Name Oct 25, 2024 12:00 AM Laboratory - Chemistry Order CBC & DIFF BLOOD ONCO SP ONCE [facility] Nov 25, 2024 10:22 AM Consult Order OT OCCUPATIONAL THERAPY OUTPT VISION THERAPY Cons [facility] Nov 30, 2024 12:00 AM Laboratory - Chemistry Order CBC BLOOD STAT SP ONCE [facility] Nov 30, 2024 12:00 AM Laboratory - Chemistry Order CREATININE(INCLUDES EGFR) PLASMA STAT SP ONCE [facility] Nov 30, 2024 12:00 AM Laboratory - Chemistry Order PROTHROMBIN TIME/INR PLASMA STAT SP [facility] Dec 01, 2024 11:53 AM Consult Order CSP PCAFC FUNCTIONAL ASSESSMENT INSTRUMENT OUTPT Cons [facility] Jan 03, 2025 12:08 PM Consult Order OT OCCUPATIONAL THERAPY OUTPT HOME ACCESSIBILITY Cons [facility] Jan 05, 2025 03:02 PM Consult Order ENT OUTPT Cons [facility] Lab Results: +/- 30 days of the encounter This section includes the Chemistry and Hematology Lab Results on record with [place] for the patient. Radiology Reports and Pathology [...] AM Reporting Lab: [facility] [id number] Performing Lab: [facility] [id number] .INR 1.1 0.8-1.1 .PT 12.9 s H 9.4-12.5 Dec 09, 2024 08:34 AM [facility] CREATININE(INCLUDES EGFR) Specimen Type: PLASMA No comment entered. Ordering Provider: FORD FRANCOIS Report Released Date/Time: Dec 06, 2024 09:29 AM Reporting Lab: [facility] [id number] Performing Lab: [facility] [address] CREATININE 0.6 mg/dL 0.5-1.0 .CREAT EGFR(CKD-EPI) >90 >60 Dec 09, 2024 08:34 AM [facility] CBC & DIFF Specimen Type: BLOOD Comment: Automated Differential Performed Ordering Provider: FORD FRANCOIS Report Released Date/Time: Dec 06, 2024 09:29 AM Reporting Lab: [facility] [id number] Performing Lab: [facility] [address] WBC 4.4 4.0-11.0 RBC 4.42 4.00-5.40 HGB [...] Apr 26, 2024 10:33 AM Reporting Lab: [facility] [id number] Performing Lab: [facility] [address] URIC ACID 5.4 mg/dL 2.5-6.2 Nov 22, 2024 09:45 AM [facility] LD,TOTAL Specimen Type: PLASMA No comment entered. Ordering Provider: KURT NEWELL Report Released Date/Time: Apr 26, 2024 10:33 AM Reporting Lab: [facility] [phone] Performing Lab: [facility] [address] LD,TOTAL 194 U/L 125-220 Nov 22, 2024 09:45 AM [facility] COMPREHENSIVE METABOLIC PANEL+MG Specimen Type: PLASMA No comment entered. Ordering Provider: KURT NEWELL Report Released Date/Time: Apr 26, 2024 10:33 AM Reporting Lab: [facility] [address] Performing Lab: [facility] [address] CREATININE 0.6 mg/dL 0.5-1.0 UREA NITROGEN 12 [...] Oct 25, 2024 10:32 AM Reporting Lab: [facility] [address] Performing Lab: [facility] [id number] WBC 5.4 4.0-11.0 RBC 4.58 4.00-5.40 HGB [...] 0.0 0.0-0.1 Nov 15, 2024 12:58 PM [facility] FINGERSTICK GLUCOSE Specimen Type: BLOOD Comment: Save Result Ordering Provider: LISANDRA ZAMORANO Report Released Date/Time: Nov 17, 2024 07:56 AM Reporting Lab: [facility] [id number] Performing Lab: [facility] [address] FINGERSTICK GLUCOSE 87 mg/dL 70-100 Vital Signs: All taken on the encounter date This section contains inpatient and outpatient Vital Signs collected on the date of the Encounter. Date/Time Temperature Pulse Blood Pressure Respiratory Rate SP02 Pain Height Weight Body Mass Index Source Dec 09, 2024 10:52 AM 69 124/79 [facility] Dec 09, 2024 10:37 AM 72 113/73 [facility] Dec 09, 2024 10:22 AM 70 98 [facility] Dec 09, 2024 10:22 AM 98.5 66 117/80 98 [facility] Social History: Smoking Status (Most current) and Tobacco Use (All prior to encounter date) This section includes the most current, and the historical, smoking and tobacco- related health factors from the [place] facility where the Encounter took place. Current Smoking Status This section includes the most current smoking, or tobacco-related health factor, from the [place] facility where the Encounter took place. Date/Time Current Smoking Status Comment Srini zaldivar Nov 27, 2023 03:30 PM VA-TOBACCO FORMER USER [facility] Tobacco Use History This section includes a history of the smoking, or tobacco-related health factors, that were collected on or before the date of the Encounter. The data comes from the [place] facility where the Encounter took place. Date/Time [...] the Encounter. The data comes from all [place] treatment facilities. Date/Time Radiology Report Provider Source Dec 16, 2024 07:03 AM MRI-BRAIN (P): AWAIS PADILLA [id number] -1990 F Exm Date: DEC 16, 2024@07:03 Req Phys: STEPHEN FRANCOIS Loc: [facility] PIPE FITTER GAS PIPE CONSULT-A (Re Img Loc: MRI IMAGING Service: Unknown Screen: [place] [address] (Case [id number] COMPLETE) MRI BRAIN/BRAINSTEM W/O CONTRAST (MRI Detailed) CPT:06599 Reason for Study: Myelopathy Clinical History: Did the ordering provider speak with a virtualization consultant regarding this imaging exam?No Brain MRI without contrast Myelopathy LAST CREATININE 0.6 (11/22/24) Allergies: METOPROLOL (Jan 14, 2023) REGLAN (Jan 14, 2023) My pager number on record is: [phone]. The pager number/cell phone number above is [...] 16, 2024 Date Verified: DEC 16, 2024 Harvest Manager E-Sig:/ES/SUJIT DENIS MD Report: MRI BRAIN/BRAINSTEM [...] Primary Interpreting Staff: SUJIT DENIS MD, RADIOLOGIST (Harvest Manager) /[facility] SUJIT DENIS [facility] Dec 09, 2024 09:[address] MYELOGRAM THORA CIC (P): AWAIS PADILLA [id number] -1990 F Exm Date: DEC 09, 2024@09:52 Req Phys: STEPHEN FRANCOIS Pat Loc: [facility] PIPE FITTER GAS PIPE CONSULT-A (Re Img Loc: CT IMAGING Service: Unknown Screen: [place] [address] (Case [id number] COMPLETE) CT MYELOGRAM THORACIC SPINE (CT Detailed) CPT:92877 CPT Modifiers : 59 DISTINCT PROCEDURAL SERVICE [...] PLASMA .CREAT EGFR(CKD-E >90 Ref: >=60 Allergies: ([place] only) METOPROLOL (Jan 14, 2023) REGLAN (Jan 14, 2023) Defer to radiologist for final CT protocol. User Placing Order: STEPHEN FRANCOIS L - Office Phone: My pager number on record is: [phone]. The pager number/cell phone number above is NOT correct for reporting critical results, I have entered my correct number below: My correct contact # for critial results is:neurosurgery video production specialist Trainees only: Enter your staff provider's info here: Per Joint Commission Standards, by signing this diagnostic imaging request the ordering provider confirms they have considered patients age and recent imaging history. Report Status: Verified Date Reported: DEC 09, 2024 Date Verified: DEC 09, 2024 Harvest Manager E-Sig:/ES/CARITO POLANCO MD Report: CT Thoracic [...] Primary Interpreting Staff: CARITO POLANCO MD, RADIOLOGIST (Harvest Manager) /CARITO TOLENTINO [facility] Dec 09, 2024 08:50 AM MYELOGRAM THORACIC (P): AWAIS PADILLA [id number] -1990 F Exm Date: DEC 09, 2024@08:50 Req Phys: STEPHEN FRANCOIS Pat Loc: [facility]G PIPE FITTER GAS PIPE CONSULT-A (Re Img Loc: MAIN X-RAY Service: Unknown Screen: [place] [address] (Case [id number] COMPLETE) MYELOGRAM THORACIC VIA LUMBAR INJ(RAD Detailed) CPT:79306 Reason for Study: Eval for arachnoid web or cyst at T6 level Clinical History: myelopathy Outside hosptial Thoracic mri w wo contrast is loaded into [facility]. Please do comparison . thank you Responsible provider name and phone number to notify for critical findings if other than user placing the order and pager listed below: User placing orders pager: [phone] Neurosurgery video production specialist LAST CREATININE 0.6 (11/22/24) Report Status: Verified Date Reported: DEC 09, 2024 Date Verified: DEC 09, 2024 Harvest Manager E-Sig:/ES/CARITO POLANCO MD Report: PROCEDURE: Lumbar puncture with fluoroscopic guidance. Thoracic myelogram. History: Myelopathy. Thoracic MRI shows dorsal lesion at T6. Comparison: Outside recent thoracic MRI exam from the [facility]. Fluoro time: 0.8 minute Dose: Air Kerma: 3.9, mGy, DAP: 3.54, dGy.cm? PROCEDURE: The patient/medical decision-maker understood the limitations, alternatives, and risks of the procedure and requested the procedure be performed. Both iMed and oral consent were obtained. A pre-procedural Time-Out was performed per [facility] policy. The patient was prepped [...] Primary Interpreting Staff: CARITO POLANCO MD, RADIOLOGIST (Harvest Manager) /CARITO TOLENTINO [facility] Nov 22, 2024 07:12 PM NON [place] THORACI C SPINE: AWAIS PADILLA [id number] -1990 F Exm Date: NOV 22, 2024@19:12 Req Phys: CINDY ZAMORANO Loc: [facility] XRAY GENERAL AM (Req'g Loc Img Loc: OUTSOURCE MRI Service: Unknown Screen: Patient answered no (Case [id number] COMPLETE) NON [place] THORACIC SPINE (MRI Detailed) CPT:01212 Reason for Study: OUTSIDE STUDY Clinical History: OUTSIDE STUDY Report Status: Electronically Filed Date Reported: NOV 30, 2024 Report: This is an outside Imaging study and/or report imported for continuity of patient care. This Imaging study and/or report was not reviewed or verified by a [place] Radiologist. Impression: This is an outside Imaging study and/or report imported for continuity of patient care. This Imaging study and/or report was not reviewed or verified by a [place] Radiologist. Primary Diagnostic Code: VERIFIED BY: / *ELECTRONICALLY FILED* [facility] Nov 15, 2024 12:[address] BODY W/O CO NTRAST (P): AWAIS PADILLA [id number] -1990 F Exm Date: NOV 15, 2024@12:39 Req Phys: KURT NEWELL Pat Loc: [facility] ONC SCARIA (Req'g Loc) Img Loc: NUC MED Service: Unknown Screen: [place] [address] (Case [id number] COMPLETE) SKULL-THIGH PET IMAGE W/CT ([place] Detailed) CPT:67431 Reason for Study: Evaluation for malignacy (Case [...] pager listed below: User placing orders pager: [phone] LAST CREATININE 0.6 (07/24/24) Report Status: Verified Date Reported: NOV 15, 2024 Date Verified: NOV 15, 2024 Harvest Manager E-Sig:/ES/CAIN SMART MD Report: PET/CT SCAN [...] Staff: CAIN SMART MD, RADIOLOGY STAFF PHYSICIAN (Harvest Manager) /[facility] Nov 10, 2024 10:23 AM NON [place] THORACI C SPINE: VALERIEAWAIS MODESTO [id number] -1990 F Exm Date: NOV 10, 2024@10:23 Req Phys: CINDY ZAMORANO Loc: [facility] XRAY GENERAL AM (Req'g Loc Img Loc: OUTSOURCE MRI Service: Unknown Screen: Patient answered no (Case [id number] COMPLETE) NON [place] THORACIC SPINE (MRI Detailed) CPT:42619 Reason for Study: OUTSIDE STUDY Clinical History: OUTSIDE STUDY Report Status: Electronically Filed Date Reported: NOV 30, 2024 Report: This is an outside Imaging study and/or report imported for continuity of patient care. This Imaging study and/or report was not reviewed or verified by a [place] Radiologist. Impression: This is an outside Imaging study and/or report imported for continuity of patient care. This Imaging study and/or report was not reviewed or verified by a [place] Radiologist. Primary Diagnostic Code: VERIFIED BY: / *ELECTRONICALLY FILED* [facility] Nov 10, 2024 10:03 AM NON [place] CERVICA L SPINE: AWAIS PADILLA [id number] -1990 F Exm Date: NOV 10, 2024@10:03 Req Phys: CINDY ZAMORANO Loc: [facility] XRAY GENERAL AM (Req'g Loc Img Loc: OUTSOURCE MRI Service: Unknown Screen: Patient answered no (Case [id number] COMPLETE) NON [place] CERVICAL SPINE (MRI Detailed) CPT:74182 Reason for Study: OUTSIDE STUDY Clinical History: OUTSIDE STUDY Report Status: Electronically Filed Date Reported: NOV 30, 2024 Report: This is an outside Imaging study and/or report imported for continuity of patient care. This Imaging study and/or report was not reviewed or verified by a [place] Radiologist. Impression: This is an outside Imaging study and/or report imported for continuity of patient care. This Imaging study and/or report was not reviewed or verified by a [place] Radiologist. Primary Diagnostic Code: VERIFIED BY: / *ELECTRONICALLY FILED* [facility] Nov 10, 2024 09:46 AM NON [place] LUMBAR SPINE: AWAIS PADILLA [id number] -1990 F Exm Date: NOV 10, 2024@09:46 Req Phys: CINDY ZAMORANO Loc: [facility] XRAY GENERAL AM (Req'g Loc Img Loc: OUTSOURCE MRI Service: Unknown Screen: Patient answered no (Case [id number] COMPLETE) NON [place] LUMBAR SPINE (MRI Detailed) CPT:17380 Reason for Study: OUTSIDE STUDY Clinical History: OUTSIDE STUDY Report Status: Electronically Filed Date Reported: NOV 30, 2024 Report: This is an outside Imaging study and/or report imported for continuity of patient care. This Imaging study and/or report was not reviewed or verified by a [place] Radiologist. Impression: This is an outside Imaging study and/or report imported for continuity of patient care. This Imaging study and/or report was not reviewed or verified by a [place] Radiologist. Primary Diagnostic Code: VERIFIED BY: / *ELECTRONICALLY FILED* [facility] Encounter Notes: All associated encounter notes This section contains the clinical notes associated to the Encounter. Date/Time Encounter Note(s) Provider Source Jan 04, 2025 10:55 AM ADDENDUM: LOCAL TITLE: Addendum STANDARD TITLE: ADDENDUM DATE OF NOTE: JAN 04, 2025@10:55:30 ENTRY DATE: JAN 04, 2025@10:55:31 AUTHOR: SHEYLA CIFUENTES COSIGNER: URGENCY: STATUS: COMPLETED Cancel by patient VFAI 01/04 @ 1000 w/ Kalyani: Re-scheduled: 01/25 @ 0900 w/ Thomas. Links have been sent to , Caregiver, and Provider. /orestes Ellis MSA Signed: 01/04/2025 10:56 Receipt Acknowledged By: 01/09/2025 14:35 /los/ DENITA Car Vp Security --- Original Document --- 12/09/24 [facility] ADMINISTRATIVE NOTE: Scheduled Assessments: [place] & Caregiver scheduled for Assessments VIA VVC. Assessment- 01/02 @ 0830 w/ Yayo VFAI- 01/04 @ 1000 w/ Kalyani Caregiver Assessment- 01/02 @ 1030 w/ Susan C links sent to [email or web address] and Providers. /orestes Ellis MSA Signed: 12/09/2024 11:47 Receipt Acknowledged By: 12/09/2024 12:14 /los/ DENITA Raygoza Vp Security, Caregiver Support Program 12/14/2024 08:07 /los/ KALYANI FARFAN OCCUPATIONAL THERAPIST 12/09/2024 11:49 /es/ YAYO WEST Vp Security SHEYLA CIFUENTES [facility] Dec 09, 2024 11:44 AM CAREGIVER CERTIFIC ATE: LOCAL TITLE: CSP ADMINISTRATIVE NOTE STANDARD TITLE: CAREGIVER CERTIFICATE DATE OF NOTE: DEC 09, 2024@11:44 ENTRY DATE: DEC 09, 2024@11:46:30 AUTHOR: SHEYLA CIFUENTES COSIGNER: URGENCY: STATUS: COMPLETED [facility] ADMINIST[facility] NOTE Has ADDENDA Scheduled Assessments: [place] & Caregiver scheduled for Assessments VIA VVC. Assessment- 01/02 @ 0830 w/ Yayo VFAI- 01/04 @ 1000 w/ Kalyani Caregiver Assessment- 01/02 @ 1030 w/ Susan VVC links sent to [email or web address] and Providers. /los/ SHELYA Ellis MSA Signed: 12/09/2024 11:47 Receipt Acknowledged By: 12/09/2024 12:14 /es/ DENITA Raygoza Vp Security, Caregiver Support Program 12/14/2024 08:07 /los/ KALYANI FARFAN OCCUPATIONAL THERAPIST 12/09/2024 11:49 /es/ YAYO WEST Vp Security 01/04/2025 ADDENDUM STATUS: COMPLETED Cancel by patient VFAI 01/04 @ 1000 w/ Kalyani: Re-scheduled: 01/25 @ 0900 w/ Thomas. Links have been sent to [place], Caregiver, and Provider. /orestes Ellis MSA Signed: 01/04/2025 10:56 Receipt Acknowledged By: * AWAITING SIGNATURE * THOMAS SR ROWAN A [facility]
[2025-01-11 10:50] LABS: HCG Qualitative Serum* Negative (Negative)
== END 2025-01-11 10:31 | disposition home or self-care (01) ==
LOC: ED 10:03
PROVIDERS: Emergency Provider Family Medicine
DX: J10.00 Influenza due to other identified influenza virus with unspecified type of pneumonia (principal); R05.9 Cough, unspecified
CPT/HCPCS: 36415; 71275; 80048; 84703; 85025; 86140; 96374; 99284; 99285; J0696; J7030; Q9967

== ENCOUNTER 2025-05-02 09:35 | Emergency (ER) | payer OTHER, SELFPAY ==
--- OUTSIDE RECORDS SUMMARY | 2024-07-13 02:38 | XMS_ITS | Encounter Summary ---
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 Date/Time Encounter Type Encounter Description Reason Pro vider Source Jul 13, 2024 07:38 AM Outpatient Encounter SLEEP STUDY IHE Encounter Template Text not used by [place] Plan of Treatment: Future Appointments (+ 6 months) and Future Tests (+/- 45 days) The Plan of Treatment section includes future care activities for the patient from all [place] treatmentfacilities. This section includes future appointments and future orders which are active, pending or scheduled. Future Appointments This section includes appointments that were scheduled to occur 6 months from the date of the Encounter, up to a maximum of 20 appointments. The data comes from all [place] treatment facilities. Appointment Date/Time Appointment Type Appointme nt Facility Name Jul 24, 2024 02:07 PM AMBULATORY - MEDICINE [facility] Aug 01, 2024 01:01 PM [facility] [place] [facility] Aug 02, 2024 09:30 AM AMBULATORY - MEDICINE [facility] Aug 03, 2024 03:00 PM AMBULATORY - REHAB MEDICIN E [facility] Aug 16, 2024 08:30 AM AMBULATORY - REHAB MEDICIN E [facility] Aug 23, 2024 02:24 PM [place] [facility] Sep 05, 2024 05:20 PM AMBULATORY - REHAB MEDICIN E [facility] Sep 19, 2024 01:00 PM [place] [facility] Oct 04, 2024 09:00 AM AMBULATORY - REHAB MEDICIN E [facility] Oct 10, 2024 09:30 AM AMBULATORY - REHAB MEDICIN E [facility] Oct 25, 2024 10:00 AM [place] [facility] Oct 25, 2024 05:10 PM AMBULATORY - REHAB MEDICIN E [facility] Nov 15, 2024 12:45 PM [place] [facility] Nov 22, 2024 09:30 AM [place] [facility] Nov 22, 2024 10:30 AM AMBULATORY - MEDICINE [facility] Nov 25, 2024 09:30 AM AMBULATORY - SURGERY [facility] Nov 26, 2024 09:29 AM [place]ORY [place]IC[place] [facility] Nov 30, 2024 11:00 AM AMBULATORY - SURGERY [facility] Dec 02, 2024 08:00 AM AMBULATORY - REHAB MEDICIN E [facility] Dec 09, 2024 08:30 AM [facility]ONE [facility] Lab Results: +/- 30 days of the encounter This section includes the Chemistry and Hematology Lab Results on record with [facility] for the patient. Radiology Reports and Pathology Reports are provided separately, in subsequent sections. Lab Results This section contains the Chemistry/Hematology Results that were resulted 30 days before or 30 daysafter the date of the Encounter. Date/Time Source Result Type Result - Unit Interpretation Reference Range Specimen Type Comment Jul 24, 2024 04:10 PM [facility] HCG, QUAL URINE Specimen Type: URINE No comment entered. Ordering Provider: ÁNGEL ESPARZA Report Released Date/Time: Jul 24, 2024 02:59 PM Reporting Lab: [facility] [id number] Performing Lab: [facility] [id number] HCG, QUAL NEGATIVE -neg- Jul 24, 2024 04:10 PM [facility] URINALYSIS URINE Specimen Type : URINE No comment entered. Ordering Provider: ÁNGEL ESPARZA Report Released Date/Time: Jul 24, 2024 02:59 PM Reporting Lab: [facility] [id number] Performing Lab: [facility] [id number] URINE COLOR LIGHT-YELLOW SPECIFIC GRAVITY 1.023 1.003-1.035 URINE BILIRUBIN NEGATIVE NEGATIVE URINE KETONES NEGATIVE NEGATIVE URINE GLUCOSE NEGATIVE mg/dL <30 URINE PROTEIN NEGATIVE mg/dL <20 URINE PH 6.0 5.0-8.0 URINE WBC/HPF <1 /[HPF] 0-7 URINE BACTERIA NONE SEEN URINE RBC/HPF 1 /[HPF] 0-3 APPEARANCE CLEAR SQUAMOUS EPITHELIAL <1 /[HPF] URINE BLOOD NEGATIVE NEGATIVE URINE NITRITE NEGATIVE NEGATIVE LEUKOCYTE ESTERASE NEGATIVE NEGATIVE Jul 24, 2024 03:09 PM [facility] EXTRA GOLD GEL TUBE SERUM Specimen Type: SERUM No comment entered. Ordering Provider: ÁNGEL ESPARZA Report Released Date/Time: Jul 24, 2024 03:09 PM Reporting Lab: [facility] [phone] Performing Lab: [facility] [phone] EXTRA GOLD GEL TUBE RECEIVED Jul 24, 2024 03:08 PM [facility] PROTHROMBIN TIME/INR PLASMA Specime n Type: PLASMA No comment entered. Ordering Provider: ÁNGEL ESPARZA Report Released Date/Time: Jul 24, 2024 02:59 PM Reporting Lab: [facility] [phone] Performing Lab: [facility] [phone] .INR 1.0 0.8-1.1 .PT 12.1 s 9.4-12.5 Jul 24, 2024 03:08 PM [facility] COMPREHENSIVE METABOLIC PANEL+MG PLASMA Specimen Type: PLASMA No comment entered. Ordering Provider: ÁNGEL ESPARZA Report Released Date/Time: Jul 24, 2024 02:59 PM Reporting Lab: [facility] [phone] Performing Lab: [facility] [phone] CREATININE 0.6 mg/dL 0.5-1.0 UREA NITROGEN 10 mg/dL 7-20 GLUCOSE 96 mg/dL 70-100 SODIUM 141 mmol/L 136-145 POTASSIUM 3.7 mmol/L 3.5-5.1 CHLORIDE 108 mmol/L H 98-107 CO2 25 mmol/L 22-29 CALCIUM 8.9 mg/dL 8.4-10.2 PROTEIN,TOTAL 7.1 g/dL 6.4-8.3 ALBUMIN 4.2 g/dL 3.5-5.2 BILIRUBIN, TOTAL 0.5 mg/dL 0.2-1.2 MAGNESIUM 1.9 mg/dL 1.6-2.6 ANION GAP 8 mmol/L 5-15 ALKALINE PHOSPHATASE 70 U/L 40-150 ALT/SGPT 8 U/L <33 AST/SGOT 16 U/L 11-34 .CREAT EGFR(CKD-EPI) >90 >60 Jul 24, 2024 03:08 PM [facility] CBC & DIFF BLOOD Specimen Type : BLOOD Comment: Automated Differential Performed Ordering Provider: ÁNGEL ESPARZA Report Released Date/Time: Jul 24, 2024 02:59 PM Reporting Lab: [facility] [phone] Performing Lab: [facility] [phone] WBC 4.4 4.0-11.0 RBC 4.48 4.00-5.40 HGB 13.6 g/dL 11.5-16 HCT 39.2 34.5-48 MCV 87.5 fL 80-100 MCH 30.4 pg 27-33 MCHC 34.7 g/dL 32.0-37.5 PLT 178 150-400 MPV 11.6 fL 9.1-13.0 NEUT 59.6 40.0-80.0 LYMPHS 33.1 15.0-45.0 MONO 5.0 2.0-12.0 EOSINO 1.4 0.0-6.0 BASO 0.7 0.0-2.0 RDW 11.5 11.5-14.5 ABS LYMPH 1.5 1.0-4.0 ABS MONO 0.2 0.1-1.0 ABS NEUT 2.6 2.0-7.7 ABS EOS 0.1 0-0.5 ABS BASO 0.0 0-0.2 IG(META,MYELO,PRO) 0.2 ABS IMMATURE GRAN 0.0 0-0.1 Social History: Smoking Status (Most current) and Tobacco Use (All prior to encounter date) This section includes the most current, and the historical, smoking and tobacco- related health factors from the [facility] where the Encounter took place. Current Smoking Status This section includes the most current smoking, or tobacco-related health factor, from the [place] facility where the Encounter took place. Date/Time Current Smoking Status Comment Srini zaldivar Nov 27, 2023 03:30 PM [facility] FORMER USER [facility] Tobacco Use History This section includes a history of the smoking, or tobacco-related health factors, that were collected on or before the date of the Encounter. The data comes from the [place] facility where the Encounter took place. Date/Time Smoking Status/Tobacco Use Comment F lyle Nov 27, 2023 03:30 PM VA-TOBACCO QUIT 5 TO < 15 YRS [facility] Jan 14, 2023 09:03 AM VA-TOBACCO FORMER USER [facility] Jan 14, 2023 09:03 AM [place]-TOBACCO QUIT 5 TO < 15 YRS [facility] Radiology Reports: +/- 30 days of the encounter Radiology Reports For cases when an order for radiology services may have been completed prior to the date of the Encounter, the report list includes the Radiology Reports that were completed up to 30 days before dateof the Encounter. For cases when an order for radiology services may have been completed after the date of the Encounter, the report list also includes the Radiology Reports that were completed up to30 days after date of the Encounter. The data comes from all [place] treatment facilities. Date/Time Radiology Report Provider Source Jul 24, 2024 03:[address] (AP) ABDOMEN/PE LVIS (P): PADILLAAWAIS MODESTO [id number] -1990 F Exm Date: JUL 24, 2024@15:44 Req Phys: ÁNGEL ESPARZA Pat Loc: [facility] EMERGENCY DEPT WALK-IN (Re Img Loc: CT IMAGING Service: Unknown Screen: [place] [address] (Case [id number] COMPLETE) CT (AP) ABDOMEN/PELVIS W CONTRAST(CT Detailed) CPT:28178 Contrast Media : Non-ionic Iodinated Reason for Study: Recurrent LUQ pain Clinical History: History of splenomegaly LAST 3: Collection DT Specimen Test Name Result Units Ref Range 04/26/2024 09:15 PLASMA CREATININE 0.7 mg/dL 0.5 - 1.0 03/10/2024 12:29 PLASMA CREATININE 0.7 mg/dL 0.5 - 1.0 02/23/2024 10:06 PLASMA CREATININE 0.7 mg/dL 0.5 - 1.0 04/26/2024 09:15 PLASMA .CREAT EGFR(CKD-E >90 Ref: >=60 03/10/2024 12:29 PLASMA .CREAT EGFR(CKD-E >90 Ref: >=60 02/23/2024 10:06 PLASMA .CREAT EGFR(CKD-E >90 Ref: >=60 Allergies: ([place] only) METOPROLOL (Jan 14, 2023) REGLAN (Jan 14, 2023) Defer to radiologist for final CT protocol. Contact number for responsible provider who can be reached for any questions or notifications of critical findings: tish ext [phone] Per Joint Commission Standards, by signing this diagnostic imaging request the ordering provider confirms they have considered patients age and recent imaging history. Report Status: Verified Date Reported: JUL 24, 2024 Date Verified: JUL 24, 2024 Hot Stamp Operator E-Sig: Report: CT (AP) ABDOMEN/PELVIS W CONTRAST [PRINTSET] HISTORY: Recurrent LUQ pain COMPARISON: Abdomen and pelvis CT on 02/22/2024. TECHNIQUE: CT of the abdomen and pelvis with multiplanar reformats was performed at the local [place] facility. 823 images were received by the [place] National Teleradiology Program (NTP) for interpretation. RADIATION DOSE (mGy*cm): 580 IV CONTRAST: 100 mL of Omnipaque 350 FINDINGS: LOWER THORAX: Focal steatosis adjacent to the falciform ligament. LIVER AND BILIARY: Normal. GALLBLADDER: Normal. PANCREAS: Normal. SPLEEN: Mild splenomegaly. ADRENAL: Normal. KIDNEYS: Normal. BLADDER: Normal. PELVIC ORGANS: Bilateral adnexal simple-appearing cysts measuring less than 3 cm. Nabothian cysts. GASTROINTESTINAL: Nondilated bowel without wall thickening. PERITONEUM/RETROPERITONEUM : No free fluid or free air. LYMPH NODES: No enlarged nodes. VASCULATURE: Normal. ABDOMINAL WALL: Normal. BONES: Normal for age. Impression: Stable mild splenomegaly. READING PHYSICIAN: Nunu Jackson MD -[id number] 07/24/2024 14:20 PDT [facility] National Teleradiology Program [phone] (For Medical Practitioner Use Only) Attention Patients / Veterans: If you have questions or concerns about these test results, please contact your ordering provider or primary care team. Primary Interpreting Staff: RADIOLOGY,OUTSIDE SERVICE, Staff Physician / RADIOLOGY,OUTSIDE SERVICE [facility] Jun 13, 2024 11:16 AM US ABDOMEN COMPL/D OPPLER (P): AWAIS PADILLA [id number] -1990 F Exm Date: JUN 13, 2024@11:16 Req Phys: KURT NEWELL Pat Loc: [facility] (Req'g Loc) Img Loc: [facility]SOURCE ULTRASOUND Service: Unknown Screen: Patient answered no (Case [id number] COMPLETE) NON [place] US ABDOMEN (US Detailed) CPT:98577 Reason for Study: Abdominal pain Clinical History: Recurrent abdominal pain, now with right sided pain, previously with L sided pain and splenomegaly Responsible provider name and phone number to notify for critical findings if other than user placing the order and pager listed below: User placing orders pager: [phone] LAST CREATININE 0.7 (04/26/24) Report Status: Electronically Filed Date Reported: JUL 11, 2024 Report: This is an outside Imaging study and/or report imported for continuity of patient care. This Imaging study and/or report was not reviewed or verified by a [place] Radiologist. Impression: This is an outside Imaging study and/or report imported for continuity of patient care. This Imaging study and/or report was not reviewed or verified by a [place] Radiologist. Primary Diagnostic Code: VERIFIED BY: / *ELECTRONICALLY FILED* [facility] Encounter Notes: All associated encounter notes This section contains the clinical notes associated to the Encounter. Date/Time Encounter Note(s) Provider Source Jul 13, 2024 07:38 AM SLEEP MEDICINE NOT E: LOCAL TITLE: SLEEP MEDICINE NOTE STANDARD TITLE: SLEEP MEDICINE NOTE DATE OF NOTE: JUL 13, 2024@07:38 ENTRY DATE: JUL 13, 2024@07:38:06 AUTHOR: RAMESH OLEARY EXP COSIGNER: URGENCY: STATUS: COMPLETED WPAT Direct QUESTIONNAIRE HAS BEEN FILLED OUT Once a sleep provider has formed a diagnosis, a RT will call patient with results and action plan. Order and address has been verified. An order will be placed to our partner, [facility], for a home sleep test to be delivered to your home. They will reach out initially by text and follow up by phone, if no response, in 3 days to get a home sleep apnea test mailed to your home. They will determine which device is best suited to your needs, whether disposable or reusable. Education will be provided, as well as tips to ensure a successful completion of the test. There is a 11/05 patient support center available the night of the study, the number is provided in the delivered package. Tests are delivered by [facility]. They will continue to follow up with you every 3 days until you have completed the test. Discussed with the patient the following: * need at least 6 hours of recording data; patient felt this is attainable * study needs to be performed within a few days of receiving the device * keep their normal night-time routines - go to bed whenever they are sleepy - sleep in any position - take normal medications prior to bed, or as instructed - may drink alcohol because we want to see a normal night [place] Sleepiness Scale Using the scale: 0=Never 1=Slight chance of dozing 2=Moderate chance of dozing 3=High chance of dozing, how often are you likely to doze off in the following situations? 1. Sitting and reading =3 2. Watching TV =3 3. Sitting inactive in a public place =3 4. As a passenger in a car for an hour without a break =3 5. Lying down to rest in the afternoon as circumstances permit =3 6. Sitting and talking to someone =1 7. Sitting quietly after lunch without alcohol =2 8. In a car while stopped for a few minutes in traffic =2 TOTAL:20 On average, do the following situations pertain to you: Use Y= yes or N= No 9. Takes 30 minutes or more to fall asleep, occurring 3 or more times a week =N 10. Wake up frequently throughout per night, occurring 3 or more times a week =Y 11. Irregular sleep schedule (including night supervisor or rotating shifts) =N 12. Aching or crawling sensation in legs when trying to fall asleep =Y In the past 6 months have you experienced the following: Use Y = Yes or N = No 13.Disruptive nightmares =Y 14.Acted out your vivid dreams (elaborate movement such as kicking, flailing, punching, shouting, screaming) =N 15.Sleep walking=N 16.Accidentally injured self or bed partner while sleeping =N 17. Are you : Active , [employer], [employer], or carry a CDL =N a.Requested by employer to complete study?N 18. Have you been diagnosed with: depression, PTSD, or other Mental Health disorders =Y 19. Currently on Therapy for apnea =N 20. Any comments or concerns regarding your sleep: Results will be returned to [place] for a Sleep provider to interpret. Once this has been completed, the sleep clinic will reach out to review results and next steps. This process takes up to two weeks. All patient's questions were addressed and is ready for the HST study. Informed them to call with any further questions or concerns at [phone], M- [phone] and we will be happy to assist. /los/ RAMESH OLEARY [facility] Signed: 07/13/2024 07:39 RAMESH OLEARY [facility]
--- OUTSIDE RECORDS SUMMARY | 2024-07-13 08:00 | XMS_ITS | Encounter Summary ---
Author Name [facility] Organization [facility] [place] Address [address] [place] [address] Care Team Providers Care [employer] Director Name Role Phone CINDY ZAMORANO Primary Care Provider Unavail able Selected Encounter This section includes the information on record at [place] for the Encounter. Date/Time Encounter Type Encounter Description Reason Provider Source Jul 13, 2024 01:00 PM Outpatient Encounter ADMIN PAT ACTIVTIES (MASNONCT) DINA GONZALES Encounter Template Text not used by [place] Plan of Treatment: Future Appointments (+ 6 months) and Future Tests (+/- 45 days) The Plan of Treatment section includes future care activities for the patient from all [place] treatmentfacilities. This section includes future appointments and future orders which are active, pending or scheduled. Future Appointments This section includes appointments that were scheduled to occur 6 months from the date of the Encounter, up to a maximum of 20 appointments. The data comes from all [place] treatment facilities. Appointment Date/Time Appointment Type Appointme nt Facility Name Jul 24, 2024 02:07 PM [facility]UL[facility]ORY - [place] [place] [facility] Aug 01, 2024 01:01 PM AMBUL[place]ORY - NONE [place] [facility] Aug 02, 2024 09:30 AM AMBULATORY - MEDICINE [facility] Aug 03, 2024 03:00 PM AMBULATORY - REHAB MEDICIN E [facility] Aug 16, 2024 08:30 AM AMBULATORY - REHAB MEDICIN E [facility] Aug 23, 2024 02:24 PM [facility] - [facility] [place] [facility] Sep 05, 2024 05:20 PM AMBULATORY - REHAB MEDICIN E [facility] Sep 19, 2024 01:00 PM AM[place]ORY - NONE [place] [facility] Oct 04, 2024 09:00 AM AMBULATORY - REHAB MEDICIN E [facility] Oct 10, 2024 09:30 AM AMBULATORY - REHAB MEDICIN E [facility] Oct 25, 2024 10:00 AM [facility] Oct 25, 2024 05:10 PM AMBULATORY - REHAB MEDICIN E [facility] Nov 15, 2024 12:45 [facility] Nov 22, 2024 09:30 AM [facility] Nov 22, 2024 10:30 AM AMBULATORY - MEDICINE [facility] Nov 25, 2024 09:30 AM AMBULATORY - SURGERY [facility] Nov 26, 2024 09:29 AM AMBULATORY - MEDICINE [facility] Nov 30, 2024 11:00 AM AMBULATORY - SURGERY [facility] Dec 02, 2024 08:00 AM AMBULATORY - REHAB MEDICIN E [facility] Dec 09, 2024 08:30 AM [facility] Lab Results: +/- 30 days of the encounter This section includes the Chemistry and Hematology Lab Results on record with [place] for the patient. Radiology Reports and Pathology Reports are provided separately, in subsequent sections. Lab Results This section contains the Chemistry/Hematology Results that were resulted 30 days before or 30 daysafter the date of the Encounter. Date/Time Source Result Type Result - Unit Interpretation Reference Range Specimen Type Comment Jul 24, 2024 04:10 PM [facility] HCG, QUAL URINE Specimen Type: URINE No comment entered. Ordering Provider: ÁNGEL ESPARZA Report Released Date/Time: Jul 24, 2024 02:59 PM Reporting Lab: [facility] [id number] Performing Lab: [facility] [id number] HCG, QUAL NEGATIVE -neg- Jul 24, 2024 04:10 PM [facility] URINALYSIS URINE Specimen Type : URINE No comment entered. Ordering Provider: ÁNGEL ESPARZA Report Released Date/Time: Jul 24, 2024 02:59 PM Reporting Lab: [facility] [address] Performing Lab: [facility] [address] URINE COLOR LIGHT-YELLOW SPECIFIC GRAVITY 1.023 1.003-1.035 [...] NEGATIVE NEGATIVE Jul 24, 2024 03:09 PM [facility] EXTRA GOLD GEL TUBE SERUM Specimen Type: SERUM No comment entered. Ordering Provider: ÁNGEL ESPARZA Report Released Date/Time: Jul 24, 2024 03:09 PM Reporting Lab: [facility] [id number] Performing Lab: [facility] [address] EXTRA GOLD GEL TUBE RECEIVED Jul 24, 2024 03:08 PM [facility] PROTHROMBIN TIME/INR PLASMA Specime n Type: PLASMA No comment entered. Ordering Provider: ÁNGEL ESPARZA Report Released Date/Time: Jul 24, 2024 02:59 PM Reporting Lab: [facility] [id number] Performing Lab: [facility] [address] .INR 1.0 0.8-1.1 .PT 12.1 s 9.4-12.5 Jul 24, 2024 03:08 PM [facility] COMPREHENSIVE METABOLIC PANEL+MG PLASMA Specimen Type: PLASMA No comment entered. Ordering Provider: ÁNGEL ESPARZA Report Released Date/Time: Jul 24, 2024 02:59 PM Reporting Lab: [facility] [address] Performing Lab: [facility] [address] CREATININE 0.6 mg/dL 0.5-1.0 UREA NITROGEN 10 [...] >90 >60 Jul 24, 2024 03:08 PM [facility] CBC & DIFF BLOOD Specimen Type : BLOOD Comment: Automated Differential Performed Ordering Provider: ÁNGEL ESPARZA Report Released Date/Time: Jul 24, 2024 02:59 PM Reporting Lab: [facility] [address] Performing Lab: [facility] [address] WBC 4.4 4.0-11.0 RBC 4.48 4.00-5.40 HGB [...] and tobacco- related health factors from the [place] facility where the Encounter took place. Current Smoking Status This section includes the most current smoking, or tobacco-related health factor, from the [place] facility where the Encounter took place. Date/Time Current Smoking Status Comment Facil ity Nov 27, 2023 03:30 PM VA-TOBACCO QUIT 5 TO < 15 YRS [facility] Tobacco Use History This section includes a history of the smoking, or tobacco-related health factors, that were collected on or before the date of the Encounter. The data comes from the [place] facility where the Encounter took place. Date/Time Smoking Status/Tobacco Use Comment F acility Nov 27, 2023 03:30 PM VA-TOBACCO QUIT 5 TO < 15 YRS [facility] Jan 14, 2023 09:03 AM [place]-TOBACCO FORMER USER [facility] Jan 14, 2023 09:03 AM [place]-TOBACCO QUIT 5 TO < 15 YRS [facility] Radiology Reports: +/- 30 days of the [...] the Encounter. The data comes from all [place] treatment facilities. Date/Time Radiology Report Provider Source Jul 24, 2024 03:[address] (AP) ABDOMEN/PE LVIS (P): AWAIS PADILLA [id number] -[id number] F Exm Date: JUL 24, 2024@15:44 Req Phys: ÁNGEL ESPARZA Pat Loc: [facility] EMERGENCY DEPT WALK-IN (Re Img Loc: CT IMAGING Service: Unknown Screen: [place] [address] (Case [id number] COMPLETE) CT (AP) ABDOMEN/PELVIS W CONTRAST(CT Detailed) CPT:44091 Contrast Media : Non-ionic Iodinated Reason for [...] PLASMA .CREAT EGFR(CKD-E >90 Ref: >=60 Allergies: ([place] only) METOPROLOL (Jan 14, 2023) REGLAN (Jan 14, 2023) Defer to radiologist for final CT protocol. Contact number for responsible provider who can be reached for any questions or notifications of critical findings: tish ext [phone] Per Joint Commission Standards, by signing this diagnostic imaging request the ordering provider confirms they have considered patients age and recent imaging history. Report Status: Verified Date Reported: JUL 24, 2024 Date Verified: JUL 24, 2024 Clinical Resource Director E-Sig: Report: CT (AP) ABDOMEN/PELVIS W CONTRAST [PRINTSET] HISTORY: Recurrent LUQ pain COMPARISON: Abdomen and pelvis CT on 02/22/2024. TECHNIQUE: CT of the abdomen and pelvis with multiplanar reformats was performed at the local [place] facility. 823 images were received by the [place] National Teleradiology Program (NTP) for interpretation. RADIATION [...] mild splenomegaly. READING PHYSICIAN: Nunu Jackson MD -[id number] 07/24/2024 14:20 PDT [facility] T[facility] [phone] (For Medical Practitioner Use Only) Attention Patients / Veterans: If you have questions or concerns about these test results, please contact your ordering provider or primary care team. Primary Interpreting Staff: RADIOLOGY,OUTSIDE SERVICE, Staff Physician / RADIOLOGY,OUTSIDE SERVICE [facility] Jun 13, 2024 11:16 AM US ABDOMEN COMPL/D OPPLER (P): AWAIS PADILLA [id number] -1990 F Exm Date: JUN 13, 2024@11:16 Req Phys: KURT NEWELL Pat Loc: [facility] (Req'g Loc) Img Loc: [facility] ULTRASOUND Service: Unknown Screen: Patient answered no (Case [id number] COMPLETE) NON [facility] US ABDOMEN (US Detailed) CPT:53081 Reason for Study: Abdominal pain Clinical History: Recurrent abdominal pain, now with right sided pain, previously with L sided pain and splenomegaly Responsible provider name and phone number to notify for critical findings if other than user placing the order and pager listed below: User placing orders pager: [phone] LAST CREATININE 0.7 (04/26/24) Report Status: Electronically Filed Date Reported: JUL 11, 2024 Report: This is an outside Imaging study and/or report imported for continuity of patient care. This Imaging study and/or report was not reviewed or verified by a [place] Radiologist. Impression: This is an outside Imaging study and/or report imported for continuity of patient care. This Imaging study and/or report was not reviewed or verified by a [place] Radiologist. Primary Diagnostic Code: VERIFIED BY: / *ELECTRONICALLY FILED* [facility] Encounter Notes: All associated encounter notes This section contains the clinical notes associated to the Encounter. Date/Time Encounter Note(s) Provider Source Jul 15, 2024 08:45 AM ADDENDUM: LOCAL TITLE: Addendum STANDARD TITLE: ADDENDUM DATE OF NOTE: JUL 15, 2024@08:45:43 ENTRY DATE: JUL 15, 2024@08:45:45 AUTHOR: PHILLIP MELTON EXP COSIGNER: URGENCY: STATUS: COMPLETED Records requested and will be uploaded via [employer] when received. /los/ PHILLIP MELTON ...[employer] Tech Signed: 07/15/2024 08:45 Receipt Acknowledged By: 07/15/2024 09:34 /es/ BAYLEE GIBBS RN REGISTERED NURSE for ANDRES TA --- Original Document --- 04/16/24 [facility] PRESENTING CARE COORD PLAN NOTE: Emergency Notification Intake Date Presenting to the Facility: Mar Method of Contact: Notified from [employer] worklist Notification ID: [id number] [facility] Referral #: [facility] Name: Hospital: [facility] Address: City: [place] State: [place] Zip Code: Phone : Community Facility Point of Contact: Name: Phone: Chief complaint: SHARP LEFT EAR PAIN Primary Diagnosis: Disposition Discharged Date of discharge: Mar Discharge to home Notify - Submit for /los/ ELOISE LOMBARDO Manager Appointment(AOD) Signed: 07/13/2024 13:31 Receipt Acknowledged By: 07/14/2024 13:20 /es/ Dina Gonzales MA, PHN, RN-BC real estate broker associate Stopper [employer] PHILLIP MELTON [facility] Jul 14, 2024 02:13 PM ADDENDUM: LOCAL TITLE: Addendum STANDARD TITLE: ADDENDUM DATE OF NOTE: JUL 14, 2024@14:13:38 ENTRY DATE: JUL 14, 2024@14:13:38 AUTHOR: KARRIE COLVIN EXP COSIGNER: URGENCY: STATUS: COMPLETED was seen in a Community ED. Records uploaded to chart. Please review and follow up as appropriate. /los/ KARRIE COLVIN ADVANCED MSA Signed: 07/14/2024 14:13 Receipt Acknowledged By: 07/14/2024 15:29 /los/ BAYLEE GIBBS RN REGISTERED NURSE for ANDRES YOOFARHAT 07/14/2024 14:58 /es/ JOHN NUGENT MD STAFF PHYSICIAN --- Original Document --- 11/07/23 [facility] S[facility]F PRESENTING CARE COORD PLAN NOTE: Emergency Notification Intake Date Presenting to the Facility: Oct Method of Contact: Notified from [employer] worklist Notification ID: [id number] [facility] Referral #: [facility] Name: Hospital: [facility] Address: City: [place] State: [place] Zip Code: Phone : [facility] Facility Point of Contact: Name: Phone: Chief complaint: [id number] - Other chest pain Primary Diagnosis: Disposition Unknown at time of intake note entry Notify - Approved for 170 /los/ ELOISE LOMBARDO Manager Appointment(AOD) Signed: 07/13/2024 13:21 Receipt Acknowledged By: 07/14/2024 13:19 /es/ Dina Gonzales MA, PHN, RN-BC real estate broker associate [employer] 11/07/2023 ADDENDUM STATUS: COMPLETED VistA Imaging Scanned Document - Addendum. ED record 11.07.23 [facility] SCANNED DOCUMENT SIGNATURE NOT REQUIRED Electronically Filed: 07/14/2024 by: KARRIE COLVIN [facility] 07/14/2024 ADDENDUM STATUS: COMPLETED this ER visit was in Oct 2023. No f/u necessary. /los/ JOHN NUGENT MD STAFF PHYSICIAN Signed: 07/14/2024 14:59 KARRIE COLVIN [facility] Apr 16, 2024 01:26 PM NONVA NOTE: LOCAL TITLE: [facility] SELF PRESENTING CARE COORD PLAN STANDARD TITLE: NONVA NOTE DATE OF NOTE: APR 16, 2024@13:26 ENTRY DATE: JUL 13, 2024@13:27:24 AUTHOR: ELOISE LOMBARDO EXP COSIGNER: URGENCY: STATUS: COMPLETED [facility]F PRESENTING CARE COORD PLAN NOTE Has ADDENDA Emergency Notification Intake Date Presenting to the Facility: Mar Method of Contact: Notified from [employer] [facility] worklist Notification ID: [id number] Name[facility] Address: City: [place] State: [place] Zip Code: Phone : [facility] Facility Point of Contact: Name: Phone: Chief complaint: SHARP LEFT EAR PAIN Primary Diagnosis: Disposition Discharged Date of discharge: Mar Discharge to home Notify - Submit for /los/ ELOISE LOMBARDO Manager Appointment(AOD) Signed: 07/13/2024 13:31 Receipt Acknowledged By: 07/14/2024 13:20 /los/ Dina Gonzales MA, PHN, RN-BC real estate broker associate [employer] 07/15/2024 ADDENDUM STATUS: COMPLETED Records requested and will be uploaded via [employer] when received. /los/ PHILLIP MELTON ...[employer] Tech Signed: 07/15/2024 08:45 Receipt Acknowledged By: 07/15/2024 09:34 /es/ BAYLEE GIBBS RN REGISTERED NURSE for ANDRES Zeyad TA 07/18/2024 ADDENDUM STATUS: COMPLETED Neither current records of disposition, nor a Discharge Summary have been received by this interval review date. Additionally, records related to this episode of care, (EOC) are not available via [employer]. I faxed a 2nd request for current or final records of disposition related to this EOC in order to further either a Continued Stay Review, or a Discharge Summary Notification. /los/ Dina Gonzales MA, PHN, RN-BC real estate broker associate [employer] Signed: 07/18/2024 10:03 ELOISE LOMBARDO [facility] Nov 07, 2023 01:10 PM NONVA NOTE: LOCAL TITLE: [facility] SELF PRESENTING CARE COORD PLAN STANDARD TITLE: NONVA NOTE DATE OF NOTE: NOV 07, 2023@13:10 ENTRY DATE: JUL 13, 2024@13:10:51 AUTHOR: ELOISE LOMBARDO [facility] COSIGNER: URGENCY: STATUS: COMPLETED [facility] SELF PRESENTING CARE COORD PLAN NOTE Has ADDENDA Emergency Notification Intake Date Presenting to the Facility: Oct Method of Contact: Notified from [employer] worklist Notification ID: [id number] [facility] Name[facility] Address: City: [place] State: [place] Zip Code: Phone : Community Facility Point of Contact: Name: Phone: Chief complaint: [id number] - Other chest pain Primary Diagnosis: Disposition Unknown at time of intake note entry Notify - Approved for 170 /los/ ELOISE LOMBARDO Manager Appointment(AOD) Signed: 07/13/2024 13:21 Receipt Acknowledged By: 07/14/2024 13:19 /los/ Dina Gonzales MA, PHN, RN-BC real estate broker associate [employer] 11/07/2023 ADDENDUM STATUS: COMPLETED VistA Imaging Scanned Document - Addendum. ED record 11.07.23 [facility] SCANNED DOCUMENT SIGNATURE NOT REQUIRED Electronically Filed: 07/14/2024 by: KARRIE ARTHUR MSA 07/14/2024 ADDENDUM STATUS: COMPLETED was seen in a Community ED. Records uploaded to chart. Please review and follow up as appropriate. /los/ KARRIE ARTHUR MSA Signed: 07/14/2024 14:13 Receipt Acknowledged By: * AWAITING SIGNATURE * ANDRES TA 07/14/2024 14:58 /los/ JOHN NUGENT MD STAFF PHYSICIAN 07/14/2024 ADDENDUM STATUS: COMPLETED this ER visit was in Oct 2023. No f/u necessary. /los/ JOHN NUGENT MD STAFF PHYSICIAN Signed: 07/14/2024 14:59 ELOISE LOMBARDO [facility]
--- OUTSIDE RECORDS SUMMARY | 2024-07-24 09:07 | XMS_ITS | Encounter Summary ---
Author Name [facility] [place] Organization [facility] [place] Address [address] [place] [address] Care Team Providers Care Teradata Architect Name Role Phone LONA CINDY Primary Care Provider Unavail able Selected Encounter This section includes the information on record at [place] for the Encounter. Date/Time Encounter Type Encounter Description Reason Provider Source Jul 24, 2024 02:07 PM EMERGENCY DEPT VISIT [facility] EMERGENCY DEPT ICD-10-CM R10.10 Upper abdominal pain, unspecified JOYCE RUIZ Encounter Template Text not used by [place] Assessments - Encounter Diagnoses This section includes the primary and secondary diagnoses documented for the Encounter. Date/Time Primary/Secondary Diagnosis Diagnosis Name Provider Source Jul 24, 2024 06:17 PM PRIMARY Upper abdominal pain, unspecified CRISTOPHER VIVAS [facility] Plan of Treatment: Future Appointments (+ 6 months) and Future Tests (+/- 45 days) The Plan of Treatment section includes future care activities for the patient from all [place] treatmentfacilities. This section includes future appointments and future orders which are active, pending or scheduled. Future Appointments This section includes appointments that were scheduled to occur 6 months from the date of the Encounter, up to a maximum of 20 appointments. The data comes from all [place] treatment facilities. Appointment Date/Time Appointment Type Appointme nt Facility Name Aug 01, 2024 01:01 PM AM[place]ORY - [place]ONE [place] [facility] Aug 02, 2024 09:30 AM [facility] [facility] Aug 03, 2024 03:00 PM AMBULATORY - REHAB MEDICIN [facility] Aug 16, 2024 08:30 AM AMBULATORY - REHAB MEDICIN E [facility] Aug 23, 2024 02:24 PM [facility] Sep 05, 2024 05:20 PM AMBULATORY - REHAB MEDICIN E [facility] Sep 19, 2024 01:00 PM [place] [facility] Oct 04, 2024 09:00 AM AMBULATORY - REHAB MEDICIN E [facility] Oct 10, 2024 09:30 AM AMBULATORY - REHAB MEDICIN E [facility] Oct 25, 2024 10:00 AM [facility] Oct 25, 2024 05:10 PM AMBULATORY - REHAB MEDICIN E [facility] Nov 15, 2024 12:45 PM [place] [facility] Nov 22, 2024 09:30 AM [place] [facility] Nov 22, 2024 10:30 AM [facility] Nov 25, 2024 09:30 AM AMBULATORY - SURGERY [facility] Nov 26, 2024 09:29 AM [facility] Nov 30, 2024 11:00 AM AMBULATORY - SURGERY [facility] Dec 02, 2024 08:00 AM AMBULATORY - REHAB MEDICIN E [facility] Dec 09, 2024 08:30 AM [place] [facility] Dec 09, 2024 09:30 AM [facility] Lab Results: +/- 30 days of the encounter This section includes the Chemistry and Hematology Lab Results on record with [place] for the patient. Radiology Reports and Pathology Reports are provided separately, in subsequent sections. Lab Results This section contains the Chemistry/Hematology Results that were resulted 30 days before or 30 daysafter the date of the Encounter. Date/Time Source Result Type Result - Unit Interpretation Reference Range Specimen Type Comment Aug 23, 2024 03:57 PM [facility] COVID-19 AND FLU/RSV DIAG PANEL(CEPHEID) NASOPHARYNGEAL Specimen Type: NASOPHARYNGEAL Comment: Cepheid GeneXpert (618) Ordering Provider: RANDAL CHAMBERLAIN Report Released Date/Time: Aug 23, 2024 03:43 PM Reporting Lab: [facility] [id number] Performing Lab: [facility] [id number] COVID-19 (CEPHEID) Not Detected Not Dete cted INFLUENZA A (PCR) Not Detected Not Detec maeve INFLUENZA B (PCR) Not Detected Not Detec maeve RSV (PCR) Not Detected Not Detected Aug 23, 2024 03:57 PM [facility] HCG, QUAL URINE Specimen Type: URINE Comment: Cepheid GeneXpert (618) Ordering Provider: RANDAL CHAMBERLAIN Report Released Date/Time: Aug 23, 2024 03:47 PM Reporting Lab: [facility] [id number] Performing Lab: [facility] [id number] HCG, QUAL NEGATIVE -neg- Aug 23, 2024 03:30 PM [facility] URINALYSIS URINE Specimen Type : URINE No comment entered. Ordering Provider: RANDAL CHAMBERLAIN Report Released Date/Time: Aug 23, 2024 03:43 PM Reporting Lab: [facility] [phone] Performing Lab: [facility] [phone] URINE COLOR LIGHT-YELLOW SPECIFIC GRAVITY 1.014 1.003-1.035 URINE BILIRUBIN NEGATIVE NEGATIVE URINE KETONES NEGATIVE NEGATIVE URINE GLUCOSE NEGATIVE mg/dL <30 URINE PROTEIN NEGATIVE mg/dL <20 URINE PH 6.0 5.0-8.0 URINE WBC/HPF <1 /[HPF] 0-7 URINE BACTERIA NONE SEEN URINE RBC/HPF NONE SEEN /[HPF] 0-3 APPEARANCE CLEAR SQUAMOUS EPITHELIAL 6 /[HPF] URINE BLOOD NEGATIVE NEGATIVE URINE NITRITE NEGATIVE NEGATIVE LEUKOCYTE ESTERASE NEGATIVE NEGATIVE Jul 24, 2024 04:10 PM [facility] HCG, QUAL URINE Specimen Type : URINE No comment entered. Ordering Provider: ÁNGEL VIVAS Report Released Date/Time: Jul 24, 2024 02:59 PM Reporting Lab: [facility] [phone] Performing Lab: [facility] [phone] HCG, QUAL NEGATIVE -neg- Jul 24, 2024 04:10 PM [facility] URINALYSIS URINE Specimen Type : URINE No comment entered. Ordering Provider: ÁNGEL VIVAS Report Released Date/Time: Jul 24, 2024 02:59 PM Reporting Lab: [facility] [phone] Performing Lab: [facility] [phone] URINE COLOR LIGHT-YELLOW SPECIFIC GRAVITY 1.023 1.003-1.035 [...] NEGATIVE NEGATIVE Jul 24, 2024 03:09 PM [facility] EXTRA GOLD GEL TUBE SERUM Specimen Type: SERUM No comment entered. Ordering Provider: ÁNGEL VIVAS Report Released Date/Time: Jul 24, 2024 03:09 PM Reporting Lab: [facility] [phone] Performing Lab: [facility] [phone] EXTRA GOLD GEL TUBE RECEIVED Jul 24, 2024 03:08 PM [facility] PROTHROMBIN TIME/INR PLASMA Specime n Type: PLASMA No comment entered. Ordering Provider: ÁNGEL VIVAS Report Released Date/Time: Jul 24, 2024 02:59 PM Reporting Lab: [facility] [phone] Performing Lab: [facility] [phone] .INR 1.0 0.8-1.1 .PT 12.1 s 9.4-12.5 Jul 24, 2024 03:08 PM [facility] COMPREHENSIVE METABOLIC PANEL+MG PLASMA Specimen Type: PLASMA No comment entered. Ordering Provider: ÁNGEL VIVAS Report Released Date/Time: Jul 24, 2024 02:59 PM Reporting Lab: [facility] [phone] Performing Lab: [facility] [phone] CREATININE 0.6 mg/dL 0.5-1.0 UREA NITROGEN 10 [...] >90 >60 Jul 24, 2024 03:08 PM [facility] CBC & DIFF BLOOD Specimen Type : BLOOD Comment: Automated Differential Performed Ordering Provider: ÁNGEL VIVAS Report Released Date/Time: Jul 24, 2024 02:59 PM Reporting Lab: [facility] [phone] Performing Lab: [facility] [phone] WBC 4.4 4.0-11.0 RBC 4.48 4.00-5.40 HGB [...] IG(META,MYELO,PRO) 0.2 ABS IMMATURE GRAN 0.0 0-0.1 Vital Signs: All taken on the encounter date This section contains inpatient and outpatient Vital Signs collected on the date of the Encounter. Date/Time Temperature Pulse Blood Pressure Respiratory Rate SP02 Pain Height Weight Body Mass Index Source Jul 24, 2024 06:15 PM 67 118/71 15 98 [facility] Jul 24, 2024 02:33 PM 98.3 80 123/81 16 99 8 [facility] Jul 24, 2024 02:32 PM 77 123/81 16 99 8 [facility] Social History: Smoking Status (Most current) and Tobacco Use (All prior to encounter date) This section includes the most current, and the historical, smoking and tobacco- related health factors from the [facility] where the Encounter took place. Current Smoking Status This section includes the most current smoking, or tobacco-related health factor, from the [place] facility where the Encounter took place. Date/Time Current Smoking Status Comment Facil ity Nov 27, 2023 03:30 PM VA-TOBACCO FORMER USER [facility] Tobacco Use History This section includes a history of the smoking, or tobacco-related health factors, that were collected on or before the date of the Encounter. The data comes from the [place] facility where the Encounter took place. Date/Time Smoking Status/Tobacco Use Comment F acility Nov 27, 2023 03:30 PM VA-TOBACCO QUIT 5 TO < 15 YRS [facility] Jan 14, 2023 09:03 AM VA-TOBACCO FORMER USER [facility] Jan 14, 2023 09:03 AM VA-TOBACCO QUIT 5 TO < 15 YRS [facility] Radiology Reports: +/- 30 days [...] the Encounter. The data comes from all [place] treatment facilities. Date/Time Radiology Report Provider Source Aug 23, 2024 04:06 PM CHEST 2 VIEWS PA A ND LAT: AWAIS PADILLA [id number] -1990 F Exm Date: AUG 23, 2024@16:06 Req Phys: RANDAL CHAMBERLAIN Loc: [facility] EMERGENCY DEPT WALK-IN (Re Img Loc: MAIN X-RAY Service: Unknown Screen: [place] [address] (Case [id number] COMPLETE) CHEST 2 VIEWS PA AND LAT (RAD Detailed) CPT:84450 Reason for Study: same Clinical History: [place] IS under investigation (PUI) for COVID-19 or is COVID-19+ Cough x 1 day Responsible provider name and phone number to notify for critical findings if other than user placing the order and pager listed below: User placing orders pager: LAST CREATININE 0.6 (07/24/24) Report Status: Verified Date Reported: AUG 23, 2024 Date Verified: AUG 23, 2024 Machine Ii Engraver E-Sig:/ES/CODY CASTILLO MD Report: CHEST 2 VIEWS PA AND LAT 08/23/2024 INDICATION: same COMPARISON: None. FINDINGS: Heart and pulmonary vasculature are within normal limits for size. Lungs are clear. Bones are unremarkable. Impression: No visible acute cardiopulmonary disease. Primary Interpreting Staff: CODY CASTILLO MD, RADIOLOGIST (Machine Ii Engraver) /CODY RIOS [facility] Jul 24, 2024 03:[address] (AP) ABDOMEN/PE LVIS (P): AWAIS PADILLA [id number] -1990 F Exm Date: JUL 24, 2024@15:44 Req Phys: ÁNGEL VIVAS Loc: [facility] EMERGENCY DEPT WALK-IN (Re Img Loc: CT IMAGING Service: Unknown Screen: [place] [address] (Case 41 COMPLETE) CT (AP) ABDOMEN/PELVIS W CONTRAST(CT Detailed) CPT:70288 Contrast Media : Non-ionic Iodinated Reason for [...] PLASMA .CREAT EGFR(CKD-E >90 Ref: >=60 Allergies: ([place] only) METOPROLOL (Jan 14, 2023) REGLAN (Jan 14, 2023) Defer to radiologist for final CT protocol. Contact number for responsible provider who can be reached for any questions or notifications of critical findings: tish ext [phone] Per Joint Commission Standards, by signing this diagnostic imaging request the ordering provider confirms they have considered patients age and recent imaging history. Report Status: Verified Date Reported: JUL 24, 2024 Date Verified: JUL 24, 2024 Machine Ii Engraver E-Sig: Report: CT (AP) ABDOMEN/PELVIS W CONTRAST [PRINTSET] HISTORY: Recurrent LUQ pain COMPARISON: Abdomen and pelvis CT on 02/22/2024. TECHNIQUE: CT of the abdomen and pelvis with multiplanar reformats was performed at the local [place] facility. 823 images were received by the [place] National T[facility] Program (NTP) for interpretation. RADIATION [...] mild splenomegaly. READING PHYSICIAN: Nunu Jackson MD -[id number] 07/24/2024 14:20 PDT [facility] National Teleradiology Program [phone] (For Medical Practitioner Use Only) Attention Patients / Veterans: If you have questions or concerns about these test results, please contact your ordering provider or primary care team. Primary Interpreting Staff: RADIOLOGY,OUTSIDE SERVICE, Staff Physician / RADIOLOGY,OUTSIDE SERVICE [facility] Pathology Reports: +/- 30 days of the encounter Pathology Reports For cases when an order for pathology services may have been completed prior to the date of the Encounter, the report list includes the Pathology Reports that were completed up to 30 days before dateof the Encounter. For cases when an order for pathology services may have been completed after the date of the Encounter, the report list also includes the Pathology Reports that were completed up to30 days after date of the Encounter. The data comes from all [place] treatment facilities. Date/Time Pathology Report Provider Source Aug 23, 2024 03:57 PM LR MICROBIOLOGY RE PORT: Reporting Lab: [facility] [CLIA# [id number]] [place] [address] Accession [UID]: [id number] [[id number]] Received: Aug 23, 2024@15:57 Collection sample: URINE Collection date: Aug 23, 2024 15:57 Provider: RANDAL CHAMBERLAIN Comment on specimen: RECEIVED IN STERILE CUP Test(s) ordered: CULTURE & SUSCEPTIBILITY...... completed: Aug 25, 2024 * BACTERIOLOGY FINAL REPORT => Aug 25, 2024 07:44 TECH CODE: [id number] CULTURE RESULTS: LESS THAN 10,000 CFU/ML Bacteriology Remark(s): THIS REPORT IS FINAL =--=--=--=--=--=--=--=--=--=--=--=- -=--=--=--=--=--=--=--=--=--=--=--= --=--=-- Performing Laboratory: Bacteriology Report Performed By: [facility] [CLIA# [id number]] [place] [address] [facility] Encounter Notes: All associated encounter notes This section contains the clinical notes associated to the Encounter. Date/Time Encounter Note(s) Provider Source Jul 24, 2024 06:15 PM NURSING EMERGENCY DEPT NOTE: LOCAL TITLE: EMERGENCY DEPT NURSING NOTE STANDARD TITLE: NURSING EMERGENCY DEPT NOTE DATE OF NOTE: JUL 24, 2024@18:15 ENTRY DATE: JUL 24, 2024@18:16:01 AUTHOR: JAK BALTAZAR COSIGNER: URGENCY: STATUS: COMPLETED Emergency Department Discharge Education Personal Protective Equipment (PPE): None The patient was given education on the following: EDUCATION/TEACH BACK: [facility] discharge instructions have been reviewed with Patient AND had an opportunity to ask questions, has verbalized understanding, have received a copy of the [facility] instructions EDUCATIONAL LEVEL OF UNDERSTANDING: Patient was ready and receptive to education. BARRIERS TO LEARNING: No barriers identified Accompanied by: Self Mode of Transportation: Drive self EXIT ADDITIONAL EDUCATION GIVE: Pt. did not want to wait for her meds and stated that she would get them tommorow. Wristband Removal:Patient wristband was removed and destroyed by being placed in the shred bin. Discharged to: Home /los/ JAK BALTAZAR RN REGISTERED NURSE Signed: 07/24/2024 18:16 JAK BALTAZAR [facility] Jul 24, 2024 05:45 PM ADDENDUM: LOCAL TITLE: Addendum STANDARD TITLE: ADDENDUM DATE OF NOTE: JUL 24, 2024@17:45:55 ENTRY DATE: JUL 24, 2024@17:45:57 AUTHOR: JOYCE RUIZ COSIGNER: URGENCY: STATUS: COMPLETED Received in signout from Dr. Vivas. I reviewed the patient's labs which did not show any significant abnormalities. CT scan of the abdomen pelvis additionally did not show any acute abnormalities. She has mild stable splenomegaly. I discussed these results with the patient, advised her to follow-up with PCP. She said that her PCP is no longer going to be at the [place] and so I gave her phone number to schedule with a new PCP. She requested that I copy Dr. Newell onto this note so he is aware that she was seen in the ED with recurrent left upper quadrant pain. It is possible that this pain is related to gastritis or gastric ulcer which would not show up on CT scan necessarily. I started her on Maalox and Carafate. She is already on PPI. It may be beneficial if this does not go away quickly for her to have an EGD for further evaluation. Discharged in stable condition from the ED. /los/ JOYCE RUIZ MD ED Physician Signed: 07/24/2024 17:47 Receipt Acknowledged By: 07/25/2024 09:01 /los/ ANDRES TA RN RN 07/25/2024 14:05 /los/ KURT NEWELL HEM/ONC STAFF PHYSICIAN --- Original Document --- 07/24/24 EMERGENCY DEPT NOTE: Personal Protective Equipment (PPE): Nurse's note reviewed. Chief Complaint: The patient is a 34 y/o FEMALE complaining of: LUQ pain. TDAP/TD Immunizations ADMINISTERED Immunization Series Date Facility Reaction Info TDAP 06/15/2020 No Site CONTRAINDICATED No data available REFUSED ======= No data available Covid-19 Immunizations ADMINISTERED No data available CONTRAINDICATED No data available REFUSED ======= Immunization Date Facility Info SARS-COV-2 (COVID-19) VACCINE,UN* 01/14/2023 [place]* <I> <I> See the Detailed Immunizations Health Summary Component[DIM] for Additional Information * Value is truncated; see the Detailed Immunizations Health Summary Component[DIM] for complete text History of present illness: Young woman presented spring 2023 with LUQ pain. Ultimately found to have moderate splenomegaly and developed pancytopenia. After extensive investigation and observation, it was determined most likely secondary to EBV infection. Splenomegaly resolved and CBC normalized. Returns now complaining of LUQ pain since yesterday, feels to her like when her spleen was enlarged. Pain was mild yesterday, more severe today.No associated N/V. No difficulty eating. No dysuria or hematuria. Has regular menstrual periods, last about two weeks ago. No abnormal bleeding or vaginal discharge. Sexually active, using barrier contraception. No fever/chills.No lower abdominal pain. No cough/URI symptoms. Allergies: METOPROLOL (Jan 14, 2023) REGLAN (Jan 14, 2023) Past Medical History: Active problems - Computerized Problem List is the source for the followin. Exposure to potentially hazardous substance 2. Traumatic brain injury 3. Temporomandibular joint disorder 4. Unintentional weight loss 5. Mood disorder 6. Headache 7. Family history: Myocardial infarction at less than 60 - Maternal grandfather of [place] at 50 8. History of cerebrospinal fluid leak - History of CSF leak after epidural during labor; improved without intervention 9. History of gestational diabetes mellitus - First 10. Generalized enlarged lymph nodes 11. Splenomegaly Medications: Active Outpatient Medications (excluding Supplies): Outpatient Medications Status 1) CARBOXYMETHYLCELLULOSE NA 0.25% OPH SOLN INSTILL 1 ACTIVE DROP IN BOTH EYES FOUR TIMES A DAY FOR DRY EYES 2) PANTOPRAZOLE NA 40MG EC TAB TAKE ONE TABLET BY MOUTH ACTIVE TWICE A DAY FOR 2 WEEKS, THEN TAKE ONE TABLET EVERY DAY FOR STOMACH ACID 3) RIBOFLAVIN 100MG TAB TAKE FOUR TABLETS BY MOUTH EVERY ACTIVE DAY FOR HEADACHES Non-VA Medications Status 1) Non-VA NORTRIPTYLINE HCL 10MG CAP 10MG MOUTH AT ACTIVE BEDTIME 2) Non-VA ONDANSETRON TAB 4MG [id number] ACTIVE 5 Total Medications Physical Exam: BP: 123/81 (07/24/2024 14:33) P: 80 (07/24/2024 14:33) R: 16 (07/24/2024 14:33) T: 98.3 F [36.8 C] (07/24/2024 14:33) O2 Sats: 99% (07/24/2024 14:33) General: well developed, well nourished, NAD Appears well. Skin: Warm, dry. Neck: supple Cardiovascular: RRR, S1/S2 Respiratory: Lungs - clear to auscultation bilaterally Abdominal: normal bowel sounds Abdomen is soft throughout. There is mild tenderness to palpation LUQ without rebound or guarding. Labs: pending PT/INR Done: Imaging: CTAP pending ED Course/Medical Decision Making/Assessment: CPRS Notes/Labs Reviewed for Patient Encounter: Emergency department triage, emergency department nursing note, Diagnosis and Plan: Aching pain LUQ in patient with history of splenomegaly, resolved. She believes her symptoms are similar to prior episode. Recurrence would be unexpected. DDx includes acid-peptic disease (note on PPI), renal colic, pyelo, diverticulitis, other. Further plans and dispo pending lab and imaging evaluation. Disposition: /los/ ÁNGEL VIVAS MD STAFF PHYSICIAN Signed: 07/24/2024 15:27 Receipt Acknowledged By: 07/25/2024 11:36 /los/ JOHN NUGENT MD STAFF PHYSICIAN 07/24/2024 ADDENDUM STATUS: COMPLETED Care will be assumed by Dr. Ruiz at change of shift. /los/ ÁNGEL VIVAS MD STAFF PHYSICIAN Signed: 07/24/2024 15:58 Receipt Acknowledged By: 07/24/2024 17:22 /los/ JOYCE RUIZ MD ED Physician 07/25/2024 ADDENDUM STATUS: COMPLETED I will place RTC for video visit f/u in primary care. /los/ JOHN NUGENT MD STAFF PHYSICIAN Signed: 07/25/2024 11:37 JOYCE RUIZ [facility] Jul 24, 2024 05:45 PM EMERGENCY DEPT EDUCATION NOTE: LOCAL TITLE: EMERGENCY DEPT DISCHARGE INSTRUCTIONS STANDARD TITLE: EMERGENCY DEPT EDUCATION NOTE DATE OF NOTE: JUL 24, 2024@17:45:08 ENTRY DATE: JUL 24, 2024@17:45:08 AUTHOR: JOYCE RUIZ EXP COSIGNER: URGENCY: STATUS: COMPLETED DISCHARGE INSTRUCTIONS IMPORTANT: We examined and treated you today on an emergency basis only. This was not a substitute for, or an effort to provide, comprehensive medical care. In most cases, you must let your healthcare provider check you again. Tell your healthcare provider about any new or lasting problems. We cannot recognize and treat all injuries or illnesses in one Emergency Department visit. After you leave, you should follow the instructions below. You were treated today by Joyce Ruiz MD. Special Information We did not find any dangerous or life-threatening cause of your symptoms today. Your spleen has not changed in size. Your blood counts are normal. Your liver is functioning normally. There is no surgical emergency identified on your CT scan. It may be too early in the course of this to know exactly what is going on so I want you to monitor your symptoms closely. It is possible that the symptoms you are experiencing are coming from the stomach itself so I would like to try to treat you for increased stomach acid. Please take Carafate 4 times a day typically it is going to be at bedtime and before eating. Additionally you can use Maalox as needed for symptoms as well. You can try ibuprofen 600 mg but if it is pain related to the stomach this may make it worse. Please call the number given to set up a primary care appointment with a new doctor. Return to the ER if the pain becomes completely unbearable, if you are unable to tolerate fluids and have severe vomiting or you otherwise feel you are experiencing a medical emergency. This Information Is About Your Follow Up Care It is important that you establish a relationship with a Primary Care Physician. A Primary Care Physician can provide recommendations that will help you protect your health. They can get to know you, your history as well as your family history. A Primary Care Physician can also provide the screenings you need, and identify and treat many minor problems before they become major ones. Please contact [phone] to establish a primary care provider Future Appointments Future Appointments List not available This Information Is About Your Illness and Diagnosis GASTRITIS Gastritis is a condition in which the protective lining of your stomach is inflamed. The lining is a mucus-coated barrier that provides protection from the stomach's harsh digestive juices. When the lining of the stomach is weakened or damaged, it becomes inflamed and irritated. This is what causes symptoms, such as abdominal pain. Gastritis may come on very suddenly. This is called acute gastritis. It may also occur slowly over time. This is known as chronic gastritis. Treatment for gastritis depends on the specific cause. Gastritis is occasionally broken down into 2 types: 1) Erosive gastritis (also called reactive gastritis). With erosive gastritis, part of the stomach lining has worn away. The lining has been damaged. 2) Non-erosive. With non-erosive gastritis, the stomach lining is weakened, but stays intact. Causes of gastritis may include: -Frequent use of alcohol or alcohol abuse -NSAIDs, such as aspirin, ibuprofen (Motrin, Advil), naproxen (Aleve), others -Specific medicines used to reduce chronic pain or inflammation, called corticosteroids -Smoking -Infections caused by viruses or bacteria (H. pylori are a type of bacteria that affect the stomach lining) -Physical stress, such as a sudden, severe illness or injury -Autoimmune disorder, a condition in which the body's own immune system attacks healthy cells in the stomach lining -Bile reflux, a condition in which bile flows back up to the stomach instead of moving through the intestine Symptoms of gastritis include (although some people don't have any obvious symptoms): -abdominal discomfort -bloating or feeling extra full after a meal -poor appetite -weight loss -nausea or vomiting (including vomiting blood) -black or tar-like bowel movements Please follow these instructions: -Be aware that gastritis itself is not contagious. H. pylori bacteria can be passed from one person to another through the infected person's bowel movements. Therefore, it is very important to wash your hands well with soap and water: -after having a bowel movement -before eating -before handling or preparing food -Take any medicines ordered exactly as prescribed. -Take steps to avoid or reduce indigestion and heartburn: -Don't lie down for 2 to 3 hours after a meal. -Eat smaller meals throughout the day. -Find ways to manage your stress. -Avoid taking NSAIDs such as aspirin, ibuprofen (Motrin, Advil), naproxen (Aleve), others. -Reduce the amount of alcohol you drink. -Reduce your caffeine. -Avoid spicy, acidic, fatty, and fried foods. Contact your health care provider as soon as possible if you have any of the following: -ongoing or increased discomfort not relieved with treatment. -sharp abdominal pain. -blood in your vomit or vomit that looks like coffee grounds. -blood in your bowel movements or black, tar-like bowel movements. -extreme tiredness or weakness. -any new or bothersome symptoms. IMPORTANT MEDICATION INFORMATION -Your medication list includes any medications that were recently prescribed but not filled by the Pharmacy (PENDING Medicines). -Included are any known ACTIVE Medicines. Please review this list to make sure it is accurate, if this list does not match the current medications you are taking please follow-up with your Primary Care Team to have your Medication List reviewed. Medicines Medication List not available YOU ARE THE MOST IMPORTANT FACTOR IN YOUR RECOVERY. Follow the above instructions carefully. Take your medicines as prescribed. If you do not understand any of your medicines, please ask questions. If you have any outstanding tests from the emergency department, please contact your provider to review them in the next 3-5 days. If you have new symptoms, feel worse, or are not getting better as discussed, call to discuss your health questions and arrange for follow-up care, or return to the Emergency Room IF YOU ARE EXPERIENCING A MEDICAL EMERGENCY CALL 911 OR GO TO THE NEAREST EMERGENCY ROOM /los/ JOYCE RUIZ MD ED Physician Signed: 07/24/2024 17:45 JOYCE RUIZ [facility] Jul 24, 2024 03:58 PM ADDENDUM: LOCAL TITLE: Addendum STANDARD TITLE: ADDENDUM DATE OF NOTE: JUL 24, 2024@15:58:17 ENTRY DATE: JUL 24, 2024@15:58:19 AUTHOR: ÁNGEL VIVAS EXP COSIGNER: URGENCY: STATUS: COMPLETED Care will be assumed by Dr. Ruiz at change of shift. /los/ ÁNGEL VIVAS MD STAFF PHYSICIAN Signed: 07/24/2024 15:58 Receipt Acknowledged By: 07/24/2024 17:22 /los/ JOYCE RUIZ MD ED Physician --- Original Document --- 07/24/24 EMERGENCY DEPT NOTE: Personal Protective Equipment (PPE): Nurse's note reviewed. Chief Complaint: The patient is a 34 y/o FEMALE complaining of: LUQ pain. TDAP/TD Immunizations ADMINISTERED Immunization Series Date Facility Reaction Info TDAP 06/15/2020 No Site CONTRAINDICATED No data available REFUSED ======= No data available Covid-19 Immunizations ADMINISTERED No data available CONTRAINDICATED No data available REFUSED ======= Immunization Date Facility Info SARS-COV-2 (COVID-19) VACCINE,UN* 01/14/2023 [place]* <I> <I> See the Detailed Immunizations Health Summary Component[DIM] for Additional Information * Value is truncated; see the Detailed Immunizations Health Summary Component[DIM] for complete text History of present illness: Young woman presented spring 2023 with LUQ pain. Ultimately found to have moderate splenomegaly and developed pancytopenia. After extensive investigation and observation, it was determined most likely secondary to EBV infection. Splenomegaly resolved and CBC normalized. Returns now complaining of LUQ pain since yesterday, feels to her like when her spleen was enlarged. Pain was mild yesterday, more severe today.No associated N/V. No difficulty eating. No dysuria or hematuria. Has regular menstrual periods, last about two weeks ago. No abnormal bleeding or vaginal discharge. Sexually active, using barrier contraception. No fever/chills.No lower abdominal pain. No cough/URI symptoms. Allergies: METOPROLOL (Jan 14, 2023) REGLAN (Jan 14, 2023) Past Medical History: Active problems - Computerized Problem List is the source for the followin. Exposure to potentially hazardous substance 2. Traumatic brain injury 3. Temporomandibular joint disorder 4. Unintentional weight loss 5. Mood disorder 6. Headache 7. Family history: Myocardial infarction at less than 60 - Maternal grandfather of [place] at 50 8. History of cerebrospinal fluid leak - History of CSF leak after epidural during labor; improved without intervention 9. History of gestational diabetes mellitus - First 10. Generalized enlarged lymph nodes 11. Splenomegaly Medications: Active Outpatient Medications (excluding Supplies): Outpatient Medications Status 1) CARBOXYMETHYLCELLULOSE NA 0.25% OPH SOLN INSTILL 1 ACTIVE DROP IN BOTH EYES FOUR TIMES A DAY FOR DRY EYES 2) PANTOPRAZOLE NA 40MG EC TAB TAKE ONE TABLET BY MOUTH ACTIVE TWICE A DAY FOR 2 WEEKS, THEN TAKE ONE TABLET EVERY DAY FOR STOMACH ACID 3) RIBOFLAVIN 100MG TAB TAKE FOUR TABLETS BY MOUTH EVERY ACTIVE DAY FOR HEADACHES Non-VA Medications Status 1) Non-VA NORTRIPTYLINE HCL 10MG CAP 10MG MOUTH AT ACTIVE BEDTIME 2) Non-VA ONDANSETRON TAB 4MG [id number] ACTIVE 5 Total Medications Physical Exam: BP: 123/81 (07/24/2024 14:33) P: 80 (07/24/2024 14:33) R: 16 (07/24/2024 14:33) T: 98.3 F [36.8 C] (07/24/2024 14:33) O2 Sats: 99% (07/24/2024 14:33) General: well developed, well nourished, NAD Appears well. Skin: Warm, dry. Neck: supple Cardiovascular: RRR, S1/S2 Respiratory: Lungs - clear to auscultation bilaterally Abdominal: normal bowel sounds Abdomen is soft throughout. There is mild tenderness to palpation LUQ without rebound or guarding. Labs: pending PT/INR Done: Imaging: CTAP pending ED Course/Medical Decision Making/Assessment: CPRS Notes/Labs Reviewed for Patient Encounter: Emergency department triage, emergency department nursing note, Diagnosis and Plan: Aching pain LUQ in patient with history of splenomegaly, resolved. She believes her symptoms are similar to prior episode. Recurrence would be unexpected. DDx includes acid-peptic disease (note on PPI), renal colic, pyelo, diverticulitis, other. Further plans and dispo pending lab and imaging evaluation. Disposition: // ÁNGEL VIVAS MD STAFF PHYSICIAN Signed: 07/24/2024 15:27 Receipt Acknowledged By: * AWAITING SIGNATURE * JOHN NUGENT [facility] Jul 24, 2024 03:55 PM RADIOLOGY NOTE: LOCAL TITLE: RADIOLOGY CONTRAST NOTE STANDARD TITLE: RADIOLOGY NOTE DATE OF NOTE: JUL 24, 2024@15:55 ENTRY DATE: JUL 24, 2024@15:55:05 AUTHOR: JAMIE MURGUIA EXP COSIGNER: URGENCY: STATUS: COMPLETED Medical History: Previous reaction to IV contrast or Iodine(excluding topical): No Contrast administered within 24 hrs: No Exam Preparation: Consent obtained: Verbal informed consent Yes Contrast Administration: Adminstered IV contrast per CT protocol/MRI protocol IV non-ionic iodinated contrast media with saline flush Omnipaque 350 100 ml Wristband Removal: Wristband not indicated for removal /los/ JAMIE MURGUIA, RT(R)(CT) CT SWEATER OPERATOR Signed: 07/24/2024 15:55 JAMIE MURGUIA [facility] Jul 24, 2024 03:01 PM PHYSICIAN EMERGENCY DEPT NOTE: LOCAL TITLE: EMERGENCY DEPT NOTE STANDARD TITLE: PHYSICIAN EMERGENCY DEPT NOTE DATE OF NOTE: JUL 24, 2024@15:01 ENTRY DATE: JUL 24, 2024@15:01:18 AUTHOR: ÁNGEL VIVAS EXP COSIGNER: URGENCY: STATUS: COMPLETED EMERGENCY DEPT NOTE Has ADDENDA Personal Protective Equipment (PPE): Nurse's note reviewed. Chief Complaint: The patient is a 34 y/o FEMALE complaining of: LUQ pain. TDAP/TD Immunizations ADMINISTERED Immunization Series Date Facility Reaction Info TDAP 06/15/2020 No Site CONTRAINDICATED No data available REFUSED ======= No data available Covid-19 Immunizations ADMINISTERED No data available CONTRAINDICATED No data available REFUSED ======= Immunization Date Facility Info SARS-COV-2 (COVID-19) VACCINE,UN* 01/14/2023 [place]* <I> <I> See the Detailed Immunizations Health Summary Component[DIM] for Additional Information * Value is truncated; see the Detailed Immunizations Health Summary Component[DIM] for complete text History of present illness: Young woman presented spring 2023 with LUQ pain. Ultimately found to have moderate splenomegaly and developed pancytopenia. After extensive investigation and observation, it was determined most likely secondary to EBV infection. Splenomegaly resolved and CBC normalized. Returns now complaining of LUQ pain since yesterday, feels to her like when her spleen was enlarged. Pain was mild yesterday, more severe today.No associated N/V. No difficulty eating. No dysuria or hematuria. Has regular menstrual periods, last about two weeks ago. No abnormal bleeding or vaginal discharge. Sexually active, using barrier contraception. No fever/chills.No lower abdominal pain. No cough/URI symptoms. Allergies: METOPROLOL (Jan 14, 2023) REGLAN (Jan 14, 2023) Past Medical History: Active problems - Computerized Problem List is the source for the followin. Exposure to potentially hazardous substance 2. Traumatic brain injury 3. Temporomandibular joint disorder 4. Unintentional weight loss 5. Mood disorder 6. Headache 7. Family history: Myocardial infarction at less than 60 - Maternal grandfather of [place] at 50 8. History of cerebrospinal fluid leak - History of CSF leak after epidural during labor; improved without intervention 9. History of gestational diabetes mellitus - First 10. Generalized enlarged lymph nodes 11. Splenomegaly Medications: Active Outpatient Medications (excluding Supplies): Outpatient Medications Status 1) CARBOXYMETHYLCELLULOSE NA 0.25% OPH SOLN INSTILL 1 ACTIVE DROP IN BOTH EYES FOUR TIMES A DAY FOR DRY EYES 2) PANTOPRAZOLE NA 40MG EC TAB TAKE ONE TABLET BY MOUTH ACTIVE TWICE A DAY FOR 2 WEEKS, THEN TAKE ONE TABLET EVERY DAY FOR STOMACH ACID 3) RIBOFLAVIN 100MG TAB TAKE FOUR TABLETS BY MOUTH EVERY ACTIVE DAY FOR HEADACHES Non-VA Medications Status 1) Non-VA NORTRIPTYLINE HCL 10MG CAP 10MG MOUTH AT ACTIVE BEDTIME 2) Non-VA ONDANSETRON TAB 4MG [id number] ACTIVE 5 Total Medications Physical Exam: BP: 123/81 (07/24/2024 14:33) P: 80 (07/24/2024 14:33) R: 16 (07/24/2024 14:33) T: 98.3 F [36.8 C] (07/24/2024 14:33) O2 Sats: 99% (07/24/2024 14:33) General: well developed, well nourished, NAD Appears well. Skin: Warm, dry. Neck: supple Cardiovascular: RRR, S1/S2 Respiratory: Lungs - clear to auscultation bilaterally Abdominal: normal bowel sounds Abdomen is soft throughout. There is mild tenderness to palpation LUQ without rebound or guarding. Labs: pending PT/INR Done: Imaging: CTAP pending ED Course/Medical Decision Making/Assessment: CPRS Notes/Labs Reviewed for Patient Encounter: Emergency department triage, emergency department nursing note, Diagnosis and Plan: Aching pain LUQ in patient with history of splenomegaly, resolved. She believes her symptoms are similar to prior episode. Recurrence would be unexpected. DDx includes acid-peptic disease (note on PPI), renal colic, pyelo, diverticulitis, other. Further plans and dispo pending lab and imaging evaluation. Disposition: /los/ ÁNGEL VIVAS MD STAFF PHYSICIAN Signed: 07/24/2024 15:27 Receipt Acknowledged By: 07/25/2024 11:36 /los/ JOHN NUGENT MD STAFF PHYSICIAN 07/24/2024 ADDENDUM STATUS: COMPLETED Care will be assumed by Dr. Ruiz at change of shift. /los/ ÁNGEL VIVAS MD STAFF PHYSICIAN Signed: 07/24/2024 15:58 Receipt Acknowledged By: 07/24/2024 17:22 /los/ JOYCE RUIZ MD ED Physician 07/24/2024 ADDENDUM STATUS: COMPLETED Received in signout from Dr. Vivas. I reviewed the patient's labs which did not show any significant abnormalities. CT scan of the abdomen pelvis additionally did not show any acute abnormalities. She has mild stable splenomegaly. I discussed these results with the patient, advised her to follow-up with PCP. She said that her PCP is no longer going to be at the [facility] and so I gave her phone number to schedule with a new PCP. She requested that I copy Dr. Newell onto this note so he is aware that she was seen in the ED with recurrent left upper quadrant pain. It is possible that this pain is related to gastritis or gastric ulcer which would not show up on CT scan necessarily. I started her on Maalox and Carafate. She is already on PPI. It may be beneficial if this does not go away quickly for her to have an EGD for further evaluation. Discharged in stable condition from the ED. /los/ JOYCE RUIZ MD ED Physician Signed: 07/24/2024 17:47 Receipt Acknowledged By: 07/25/2024 09:01 /los/ ANDRES TA RN RN * AWAITING SIGNATURE * KURT NEWELL 07/25/2024 ADDENDUM STATUS: COMPLETED I will place RTC for video visit f/u in primary care. /los/ JOHN NUGENT MD STAFF PHYSICIAN Signed: 07/25/2024 11:37 ÁNGEL VIVAS [facility] Jul 24, 2024 02:34 PM NURSING EMERGENCY DEPT TRIAGE NOTE: LOCAL TITLE: EMERGENCY DEPARTMENT NURSING TRIAGE NOTE STANDARD TITLE: NURSING EMERGENCY DEPT TRIAGE NOTE DATE OF NOTE: JUL 24, 2024@14:34 ENTRY DATE: JUL 24, 2024@14:34:09 AUTHOR: SOFIA RAMOS EXP COSIGNER: URGENCY: STATUS: COMPLETED Emergency Department/Urgent Care Center Triage Patient age:34 Sex: FEMALE On arrival patient was: AMBULATORY Patient phone number: Allergies: METOPROLOL (Jan 14, 2023) REGLAN (Jan 14, 2023) Subjective/Chief Complaint: I think it's my spleen, I've had problems with it in the past. c/o far L abd/back pain x 2 d with nausea. Objective: Pain 8/10. The patient is not a fall risk. Vital Signs * Blood Pressure: 123/81 (07/24/2024 14:33) Heart Rate: 80 (07/24/2024 14:33) Respirations: 16 (07/24/2024 14:33) Temperature: 98.3 F [36.8 C] (07/24/2024 14:33) Pain: 8 (07/24/2024 14:33) Weight: 195.4 lb [88.63 kg] (04/26/2024 09:55) O2 Sats: 99% (07/24/2024 14:33) Emergency Severity Index (ISSAC) level Level 3 Current Medications: Active Outpatient Medications (including Supplies): Active Outpatient Medications Status 1) CARBOXYMETHYLCELLULOSE NA 0.25% OPH SOLN INSTILL 1 ACTIVE DROP IN BOTH EYES FOUR TIMES A DAY FOR DRY EYES 2) PANTOPRAZOLE NA 40MG EC TAB TAKE ONE TABLET BY MOUTH ACTIVE TWICE A DAY FOR 2 WEEKS, THEN TAKE ONE TABLET EVERY DAY FOR STOMACH ACID 3) RIBOFLAVIN 100MG TAB TAKE FOUR TABLETS BY MOUTH EVERY ACTIVE DAY FOR HEADACHES Active Non-VA Medications Status 1) Non-VA NORTRIPTYLINE HCL 10MG CAP 10MG MOUTH AT ACTIVE BEDTIME 2) Non-VA ONDANSETRON TAB 4MG [id number] ACTIVE 5 Total Medications Current Problems: Exposure to potentially hazardous substaTraumatic brain injury (SCT 507759971) Temporomandibular joint disorder (SCT 41Unintentional weight loss (SCT 732735612) Mood disorder (SCT 22377087) Headache (SCT [id number]) Family history: Myocardial infarction atHistory of cerebrospinal fluid leak (ICD-10-CM R69.) History of gestational diabetes mellitusGeneralized enlarged lymph nodes (SCT 955772841) Splenomegaly (SCT 14578741) Identification of Seniors at Risk (ISAR):* Defer screen <75 Suicide Screen: [place] Suicide Severity Rating Scale (C-SSRS) screener 1. Over the past month, have you wished you were or wished you could go to sleep and not wake up? No 2. Over the past month, have you had any actual thoughts of killing yourself? No 3. Over the past month, have you been thinking about how you might do this? Response not required due to responses to other questions. 4. Over the past month, have you had these thoughts and had some intention of acting on them? Response not required due to responses to other questions. 5. Over the past month, have you started to work out or worked out the details of how to kill yourself? Response not required due to responses to other questions. 6. If yes, at any time in the past month did you intend to carry out this plan? Response not required due to responses to other questions. 7. In your lifetime, have you ever done anything, started to do anything, or prepared to do anything to end your life (for example, collected pills, obtained a gun, gave away valuables, went to the roof but didn't jump)? No 8. If YES, was this within the past 3 months? Response not required due to responses to other questions. /los/ SOFIA RAMOS RN POWER PLANT SUPERVISOR Signed: 07/24/2024 14:36 SOFIA RAMOS [facility]
--- OUTSIDE RECORDS SUMMARY | 2024-08-02 04:30 | XMS_ITS | Encounter Summary ---
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 symptoms remains elusive. # LUQ fullness: # Mildly enlarged spleen: Doubt gastritis/PUD given symptoms are not consitently related to eating and antacids, carafate and Maalox have not been beneficial. Could be an awareness of a mildly enlarged spleen (she does note it is worse when she has a viral infection). Also considering slow gastric emptying given that she notices the sensation more after a large meal. Has been imaged multiple times recently with stable mild enlargement of spleen. - F/u with onc as planned for ongoing eval of mildly enlarged spleen. fortunately all other lab abnormalities have resolved - Consider gastric emptying study in future. Currently focusing on leg symptoms and TMJ. # Difficulty walking when fatigued: # [place]'s concern for spinal cord pathology: Extreme leg heaviness along with shoot pains/paresthesias when tired with no symptoms at other times, which started after episode of unexplained severe fatigue/weakness in October 2023. Does not sound like cord compression with waxing/waning and fatigue-dependent nature of symptoms that is not reliably reproducible. Neither MS nor transverse myelitis would fit the minutes-hours long waxing/waning pattern of symptoms. ? severe deconditioning after being bed bound in October for 3 weeks? Just underwent testing at outside neurology ([facility]) -- I will obtain those records and we can follow up pending review of their testing and recommendations to avoid duplication of efforts. # waxing and waning splenomegaly and cervical lymphadenopathy: Did have positive testing for mononucleosis summer 2023; antibiodies suggested intermediate time frame of infection. unclear if this could explain her symptoms. She is following with Dr Bruce of heme/onc. # Headaches and episodic slurring of speech when very fatigued: # [place] for multiple sclerosis w/ family hx MS: Brain MRI normal 03/2024. Following with TBI clinic with some improvement in symptoms w/ OT and eye therapy # Nighttime awakenings w/ sweating and jitters: Diagnostic CGM completed 03/22/24-03/31/24: Normal. One blood sugar in 60s immediately after application but CGMs can be falsely low in first 24h; otherwise no readings below 70. See note from PACT pharmD 04/15/24. RETURN TO CLINIC: 3m to meet new PCP or sooner PRN -------- EXAM -------- No vitals obtained as visit was conducted over [facility]. Exam: Tired appearing, otherwise well Face appears symmetric. Speaking clearly in full sentences Clinical reminders Medication Reconciliation: Education Evaluations *Was medication education provided for NEW medications or CHANGES to medications? (including medication name, dose, route, reason for use, and potential side effects). No new medications or medication changes during this encounter. TERATOGENIC MED & CONTRACEPTION REVIEW (Optional)... MEDICATION RECONCILIATION List Given: An updated medication list was provided to the patient/caregiver. Review Done: The medication list shown below was verified for accuracy and it includes all pending medications/active medications/all medications or discontinued within the last 90 days/all remote medications and non-VA medications. If a given category (i.e. remote meds) is not shown, that means that a patient doesn't have a medication(s) in that category. Allergies listed below were also reviewed/updated for accuracy. Allergies/ADR from [employer] may not display in CPRS. Use JLV MRT5 - Allergies/ADRs FACILITY ALLERGY/ADR -------- No Remote Allergy/ADR Data available for this patient [facility] METOPROLOL [facility] REGLAN Active and Recently Outpatient Medications (including Supplies): Issue Date Status Last Fill Active Outpatient Medications Refills Expiration ===== 1) ALOH/MGOH/SIMTH REG STRENGTH CHEW TAB ACTIVE Issu:07-24-24 Qty: 100 for 20 days Sig: CHEW 2 Refills: 0 Last:07-24-24 TABLETS BY MOUTH FOUR TIMES A DAY Expr:08-23-24 NEEDED FOR INDIGESTION OR HEARTBURN 2) CARBOXYMETHYLCELLULOSE NA 0.25% OPH SOLN ACTIVE Issu:07-01-24 Qty: 15 for 60 days Sig: INSTILL 1 Refills: 5 Last:07-01-24 DROP IN BOTH EYES FOUR TIMES A DAY FOR Expr:07-02-25 DRY EYES 3) PANTOPRAZOLE NA 40MG EC TAB Qty: 42 for ACTIVE Issu:11-27-23 28 days Sig: TAKE ONE TABLET BY MOUTH Refills: 2 Last:11-28-23 TWICE A DAY FOR 2 WEEKS, THEN TAKE ONE Expr:11-27-24 TABLET EVERY DAY FOR STOMACH ACID 4) RIBOFLAVIN 100MG TAB Qty: 200 for 50 ACTIVE Issu:05-04-24 days Sig: TAKE FOUR TABLETS BY MOUTH Refills: 2 Last:05-08-24 EVERY DAY FOR HEADACHES Expr:05-05-25 5) SUCRALFATE 1GM TAB Qty: 30 for 8 days ACTIVE Issu:07-24-24 Sig: TAKE ONE TABLET BY MOUTH FOUR Refills: 0 Last:07-24-24 TIMES A DAY NEEDED FOR STOMACH ACID Expr:08-23-24 Issue Date Status Last Fill Inactive Outpatient Medications Refills Expiration ===== 1) CETIRIZINE HCL 10MG TAB Qty: 15 for 15 Issu:05-19-24 days Sig: TAKE ONE TABLET BY MOUTH Refills: 0 Last:05-20-24 EVERY DAY FOR EUSTACHIAN TUBE Expr:06-18-24 DYSFUNCTION 2) FLUTICASONE PROP 50MCG 120D NASAL INHL Issu:05-19-24 Qty: 1 for 30 days Sig: SPRAY 1 SPRAY Refills: 0 Last:05-20-24 IN EACH NOSTRIL TWICE A DAY FOR Expr:06-18-24 EUSTACHIAN TUBE DYSFUNCTION Start Date Active Non-VA Medications Refills Expiration ===== 1) Non-VA NORTRIPTYLINE HCL 10MG CAP Sig: ACTIVE 10MG MOUTH AT BEDTIME 2) Non-VA ONDANSETRON TAB SiMG [id number] ACTIVE Start Date Inactive Non-VA Medications Refills Expiration ===== 1) Non-VA BACLOFEN TAB Si-10 MG TID DISCONTINUED PRN MOUTH 2) Non-VA LORAZEPAM TAB Si.5 MG BID DISCONTINUED PRN ANXIETY DR. MONTESINOS 11 Total Medications ======= Time-based coding used because *more than 50 percent* of the time below was spent counseling or coordinating care. I personally spent 40 minutes working solely on the behalf of this patient on the date of service, including documenting the encounter, reviewing records, examining the patient, explaining to the patient the diagnosis, prognosis, and my plan, as well as answering the patient's questions, education and counseling. This time was necessary for the diagnosis or treatment of this patient. /los/ JOHN NUGENT MD STAFF PHYSICIAN Signed: 08/02/2024 13:59 08/02/2024 ADDENDUM STATUS: COMPLETED PACT RN, could you request EMG results and clinic notes, along with any other diagnostic testing completed in 2022 or 2023, from [facility]? Thanks. /los/ JOHN NUGENT MD STAFF PHYSICIAN Signed: 08/02/2024 13:59 Receipt Acknowledged By: * AWAITING SIGNATURE * ANDRES TA AMY L [facility]
--- OUTSIDE RECORDS SUMMARY | 2024-08-03 10:00 | XMS_ITS | Encounter Summary ---
Author Name [facility] Organization [facility] [place] Address [address] [place] [id number] Care Team Providers Care Staff Forester Name Role Phone CINDY ZAMORANO Primary Care Provider Unavail able Selected Encounter This section includes the information on record at [place] for the Encounter. Date/Time Encounter Type Encounter Description Reason Pro vider Source Aug 03, 2024 03:00 PM Outpatient Encounter POLYTRAUMA/TBI IND IHE Encounter Template Text not used by [place] Plan of Treatment: Future Appointments (+ 6 months) and Future Tests (+/- 45 days) The Plan of Treatment section includes future care activities for the patient from all [place] treatmentfacilities. This section includes future appointments and future orders which are active, pending or scheduled. Future Appointments This section includes appointments that were scheduled to occur 6 months from the date of the Encounter, up to a maximum of 20 appointments. The data comes from all [place] treatment facilities. Appointment Date/Time Appointment Type Appointme nt Facility Name Aug 16, 2024 08:30 AM AMBULATORY - [facility] Aug 23, 2024 02:24 PM [facility] Sep 05, 2024 05:20 [facility] Sep 19, 2024 01:00 PM [facility] Oct 04, 2024 09:00 AM AMBULATORY - [facility]AB MED[facility] Oct 10, 2024 09:30 AM AMBULATORY - REHAB [facility] Oct 25, 2024 10:00 AM [facility] Oct 25, 2024 05:10 PM AMBULATORY - REHAB [facility]ICIN [facility] Nov 15, 2024 12:45 PM [facility] Nov 22, 2024 09:30 AM [facility] Nov 22, 2024 10:30 AM [facility] Nov 25, 2024 09:30 AM [facility] Nov 26, 2024 09:29 AM [facility] Nov 30, 2024 11:00 AM [facility] Dec 02, 2024 08:00 AM AMBULATORY - REHAB [facility] Dec 09, 2024 08:30 AM [facility] Dec 09, 2024 09:30 AM [facility] Dec 09, 2024 10:30 AM [facility] Dec 09, 2024 10:45 AM [facility] Dec 13, 2024 01:00 PM AMBULATORY - REHAB [facility]IN [facility] Lab Results: +/- 30 days of the encounter This section includes the Chemistry and Hematology Lab Results on record with [place] for the patient. Radiology Reports and Pathology Reports are provided separately, in subsequent sections. Lab Results This section contains the Chemistry/Hematology Results that were resulted 30 days before or 30 daysafter the date of the Encounter. Date/Time Source Result Type Result - Unit Interpretation Reference Range Specimen Type Comment Aug 23, 2024 03:57 PM [facility] COVID-19 AND FLU/RSV DIAG PANEL(CEPHEID) NASOPHARYNGEAL Specimen Type: NASOPHARYNGEAL Comment: Cepheid GeneXpert (618) Ordering Provider: RANDAL CHAMBERLAIN Report Released Date/Time: Aug 23, 2024 03:43 PM Reporting Lab: [facility] [id number] Performing Lab: [facility] [phone] COVID-19 (CEPHEID) Not Detected Not Dete cted INFLUENZA A (PCR) Not Detected Not Detec maeve INFLUENZA B (PCR) Not Detected Not Detec maeve RSV (PCR) Not Detected Not Detected Aug 23, 2024 03:57 PM [facility] HCG, QUAL URINE Specimen Type: URINE Comment: Cepheid GeneXpert (618) Ordering Provider: RANDAL CHAMBERLAIN Report Released Date/Time: Aug 23, 2024 03:47 PM Reporting Lab: [facility] [phone] Performing Lab: [facility] [phone] HCG, QUAL NEGATIVE -neg- Aug 23, 2024 03:30 PM [facility] URINALYSIS URINE Specimen Type : URINE No comment entered. Ordering Provider: RANDAL CHAMBERLAIN Report Released Date/Time: Aug 23, 2024 03:43 PM Reporting Lab: [facility] [phone] Performing Lab: [facility] [phone] URINE COLOR LIGHT-YELLOW SPECIFIC GRAVITY 1.014 1.003-1.035 [...] NEGATIVE NEGATIVE Jul 24, 2024 04:10 PM [facility] HCG, QUAL URINE Specimen Type : URINE No comment entered. Ordering Provider: ÁNGEL ESPARZA Report Released Date/Time: Jul 24, 2024 02:59 PM Reporting Lab: [facility] [id number] Performing Lab: [facility] [phone] HCG, QUAL NEGATIVE -neg- Jul 24, 2024 04:10 PM [facility] URINALYSIS URINE Specimen Type : URINE No comment entered. Ordering Provider: ÁNGEL ESPARZA Report Released Date/Time: Jul 24, 2024 02:59 PM Reporting Lab: [facility] [address] Performing Lab: [facility] [phone] URINE COLOR LIGHT-YELLOW SPECIFIC GRAVITY 1.023 1.003-1.035 [...] NEGATIVE NEGATIVE Jul 24, 2024 03:09 PM [facility] EXTRA GOLD GEL TUBE SERUM Specimen Type: SERUM No comment entered. Ordering Provider: ÁNGEL ESPARZA Report Released Date/Time: Jul 24, 2024 03:09 PM Reporting Lab: [facility] [phone] Performing Lab: [facility] [phone] EXTRA GOLD GEL TUBE RECEIVED Jul 24, 2024 03:08 PM [facility] PROTHROMBIN TIME/INR PLASMA Specime n Type: PLASMA No comment entered. Ordering Provider: ÁNGEL ESPARZA Report Released Date/Time: Jul 24, 2024 02:59 PM Reporting Lab: [facility] [address] Performing Lab: [facility] [address] .INR 1.0 0.8-1.1 .PT 12.1 s 9.4-12.5 Jul 24, 2024 03:08 PM [facility] COMPREHENSIVE METABOLIC PANEL+MG PLASMA Specimen Type: PLASMA No comment entered. Ordering Provider: ÁNGEL ESPARZA Report Released Date/Time: Jul 24, 2024 02:59 PM Reporting Lab: [facility] [address] Performing Lab: [facility] [address] CREATININE 0.6 mg/dL 0.5-1.0 UREA NITROGEN 10 [...] >90 >60 Jul 24, 2024 03:08 PM [facility] CBC & DIFF BLOOD Specimen Type : BLOOD Comment: Automated Differential Performed Ordering Provider: ÁNGEL ESPARZA Report Released Date/Time: Jul 24, 2024 02:59 PM Reporting Lab: [facility] [phone] Performing Lab: [facility] [phone] WBC 4.4 4.0-11.0 RBC 4.48 4.00-5.40 HGB [...] and tobacco- related health factors from the [place] facility where the Encounter took place. Current Smoking Status This section includes the most current smoking, or tobacco-related health factor, from the [place] facility where the Encounter took place. Date/Time Current Smoking Status Comment Srini zaldivar Nov 27, 2023 03:30 PM VA-TOBACCO QUIT 5 TO < 15 YRS [facility] Tobacco Use History This section includes a history of the smoking, or tobacco-related health factors, that were collected on or before the date of the Encounter. The data comes from the [place] facility where the Encounter took place. Date/Time Smoking Status/Tobacco Use Comment F acility Nov 27, 2023 03:30 PM VA-TOBACCO QUIT 5 TO < 15 YRS [facility] Jan 14, 2023 09:03 AM VA-TOBACCO FORMER USER [facility] Jan 14, 2023 09:03 AM VA-TOBACCO QUIT 5 TO < 15 YRS [facility] Radiology Reports: +/- 30 days of the [...] the Encounter. The data comes from all [place] treatment facilities. Date/Time Radiology Report Provider Source Aug 23, 2024 04:06 PM CHEST 2 VIEWS PA A ND LAT: AWAIS PADILLA [id number] -[id number] F Exm Date: AUG 23, 2024@16:06 Req Phys: RANDAL CHAMBERLAIN Loc: [facility] EMERGENCY DEPT WALK-IN (Re Img Loc: MAIN X-RAY Service: Unknown [place]: [place] [address] (Case [id number] COMPLETE) CHEST 2 VIEWS PA AND LAT (RAD Detailed) CPT:22281 Reason for Study: same Clinical History: IS under investigation (PUI) for COVID-19 or is COVID-19+ Cough x 1 day Responsible provider name and phone number to notify for critical findings if other than user placing the order and pager listed below: User placing orders pager: LAST CREATININE 0.6 (07/24/24) Report Status: Verified Date Reported: AUG 23, 2024 Date Verified: AUG 23, 2024 Protective Services Case Worker E-Sig:/ES/CODY CASTILLO MD Report: CHEST 2 VIEWS PA AND LAT 08/23/2024 INDICATION: same COMPARISON: None. FINDINGS: Heart and pulmonary vasculature are within normal limits for size. Lungs are clear. Bones are unremarkable. Impression: No visible acute cardiopulmonary disease. Primary Interpreting Staff: CODY CASTILLO MD, RADIOLOGIST (Protective Services Case Worker) /CODY RIOS [facility] Jul 24, 2024 03:[address] (AP) ABDOMEN/PE LVIS (P): AWAIS PADILLA [id number] -1990 F Exm Date: JUL 24, 2024@15:44 Req Phys: ÁNGEL ESPARZA Loc: [facility] EMERGENCY DEPT WALK-IN (Re Img Loc: CT IMAGING Service: Unknown [place]: [place] [address] (Case [id number] COMPLETE) CT (AP) ABDOMEN/PELVIS W CONTRAST(CT Detailed) CPT:26719 Contrast Media : Non-ionic Iodinated Reason for [...] PLASMA .CREAT EGFR(CKD-E >90 Ref: >=60 Allergies: ([place] only) METOPROLOL (Jan 14, 2023) REGLAN (Jan 14, 2023) Defer to radiologist for final CT protocol. Contact number for responsible provider who can be reached for any questions or notifications of critical findings: tish ext [phone] Per Joint Commission Standards, by signing this diagnostic imaging request the ordering provider confirms they have considered patients age and recent imaging history. Report Status: Verified Date Reported: JUL 24, 2024 Date Verified: JUL 24, 2024 Protective Services Case Worker E-Sig: Report: CT (AP) ABDOMEN/PELVIS W CONTRAST [PRINTSET] HISTORY: Recurrent LUQ pain COMPARISON: Abdomen and pelvis CT on 02/22/2024. TECHNIQUE: CT of the abdomen and pelvis with multiplanar reformats was performed at the local [place] facility. 823 images were received by the [place] National Teleradiology Program (NTP) for interpretation. RADIATION [...] mild splenomegaly. READING PHYSICIAN: Nunu Jackson MD -[id number] 07/24/2024 14:20 [facility] National Teleradiology Program [phone] (For Medical Practitioner Use Only) Attention Patients / Veterans: If you have questions or concerns about these test results, please contact your ordering provider or primary care team. Primary Interpreting Staff: RADIOLOGY,OUTSIDE SERVICE, Staff Physician / RADIOLOGY,OUTSIDE SERVICE [facility] Pathology Reports: +/- 30 days of the [...] the Encounter. The data comes from all [place] treatment facilities. Date/Time Pathology Report Provider Source Aug 23, 2024 03:57 PM LR MICROBIOLOGY RE PORT: Reporting Lab: [facility] [CLIA# [id number]] [place] [address] Accession [UID]: [id number] [[id number]] Received: Aug 23, 2024@15:57 Collection sample: URINE Collection date: Aug 23, 2024 15:57 Provider: RANDAL CHAMBERLAIN Comment on specimen: RECEIVED IN STERILE CUP Test(s) ordered: CULTURE & SUSCEPTIBILITY...... completed: Aug 25, 2024 * BACTERIOLOGY FINAL REPORT => Aug 25, 2024 07:44 TECH CODE: [id number] CULTURE RESULTS: LESS THAN 10,000 CFU/ML Bacteriology Remark(s): THIS REPORT IS FINAL =--=--=--=--=--=--=--=--=--=--=--=- -=--=--=--=--=--=--=--=--=--=--=--= --=--=-- Performing Laboratory: Bacteriology Report Performed By: [facility] [CLIA# [id number]] [place] [address] [facility] Encounter Notes: All associated encounter notes This section contains the clinical notes associated to the Encounter. Date/Time Encounter Note(s) Provider Source Aug 03, 2024 03:32 PM NO SHOW NOTE: LOCAL TITLE: NO SHOW/CANCELLATION CLINIC NOTE STANDARD TITLE: NO SHOW NOTE DATE OF NOTE: AUG 03, 2024@15:32 ENTRY DATE: AUG 03, 2024@15:32:43 AUTHOR: HARMONY MOODY EXP COSIGNER: URGENCY: STATUS: COMPLETED not seen for scheduled appointment due to: Other 3 PM. Provider in room at onset of appointment. Patient did not present and she was contacted via cell phone number listed in CPRS at 15 5. No answer, brief Voicemail left asking for call back to clinic. Provider waiting in room until 1520 patient did not present in or contact the clinic back. Unknown reason Appointment Rescheduled: No, Not at the time of this note patient will be contacted per scheduling directives /es/ HARMONY MOODY, RN,RN DIABETES RN, RN DIABETES Signed: 08/03/2024 19:49 HARMONY MOODY [facility]
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
--- OUTSIDE RECORDS SUMMARY | 2024-08-23 09:24 | XMS_ITS | Encounter Summary ---
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 Family history: Myocardial infarction at less than 60 - Maternal grandfather of PA at 50 8. History of cerebrospinal fluid leak - History of CSF leak after epidural during labor; improved without intervention 9. History of gestational diabetes mellitus - First - Diagnostic CGM March 2024 (concern for symptomatic hypoglycemia): Normal. no hypo or hyperglycemia 10. Generalized enlarged lymph nodes 11. Splenomegaly Allergies: METOPROLOL (Jan 14, 2023) REGLAN (Jan 14, 2023) Allergies, SH, medications reviewed in CPRS Active Outpatient Medications (excluding Supplies): Outpatient Medications Status 1) ALOH/MGOH/SIMTH REG STRENGTH [...] BY MOUTH EVERY ACTIVE DAY FOR HEADACHES 5) SUCRALFATE 1GM TAB TAKE ONE TABLET BY MOUTH FOUR ACTIVE TIMES A DAY NEEDED FOR STOMACH ACID Non-VA Medications Status 1) Non-VA NORTRIPTYLINE HCL 10MG CAP 10MG MOUTH AT ACTIVE BEDTIME 2) Non-VA ONDANSETRON TAB 4MG [id number] ACTIVE 7 Total Medications SH: Vapes CBD on a daily basis, uses marijuana by smoking weekly, denies use of nicotine, alcohol, or street drugs FH: N/A Exam Temp : 98.6 F [37.0 C] (08/23/2024 14:40) P : 76 (08/23/2024 14:40) RR : 14 (08/23/2024 14:40) B/P : 120/84 (08/23/2024 14:40) Wt : 195.4 lb [88.63 kg] (04/26/2024 09:55) Pain : 5 (08/23/2024 14:40) Pulse Ox: 98% (07/24/2024 18:15) Gen: alert, conversant, NAD, anxious appearing Head: NC/AT Eyes: PERRL, EOMI, no scleral icterus, conjunctiva wnl. ENT: MMM. Op clear, no erythema or exudate, TM wnl B, canals wnl B Neck: Supple, no lymphadenopathy, Full AROM CV: RRR, no M/R/G Pulm: Scattered wheezes noted throughout, with upper airway rhonchi noted. GI: +BS, soft, no tenderness/distension/masses. No CVA tenderness on palpation or percussion. Neuro: A&O appropriate, GCS 15, CN2-12 grossly wnl, no gross acute focal deficit Extremities: 5/5 strength x 4 ext, cap refill <2 sec, good sensation to soft touch x 4 ext Skin: Warm, dry, no concerning rash or lesions Beh: Appropriate, reasonable insight/judgement EKG: None performed. Labs: Reporting Lab: [facility] [CLIA# [id number]] [place] [address] Report Released Date/Time: Aug 23, 2024@16:21 Provider: RANDAL RAPHAEL Specimen: URINE. [facility] [id number] Specimen Collection Date: Aug 23, 2024@15:57 Test name Result units Ref. range Site Code HCG, QUAL NEGATIVE Ref: -neg- [618] Eval: For indeterminate results, repeat test with new specimen in 48hr Reporting Lab: [facility] [CLIA# [id number]] [address] [address] Report Released Date/Time: Aug 23, 2024@16:41 Provider: RANDAL RAPHAEL Specimen: NASOPHARYNGEAL. COV [id number] Specimen Collection Date: Aug 23, 2024@15:57 Test name Result units Ref. range Site Code COVID-19 (CEPHEID) Not Detected Ref: Not Detected [618] Eval: Testing was performed with the PLUS test 08/14/21. Eval: This testing, RT-PCR,has been authorized by FDA under an Eval: Emergency Use Authorization(EUA) for Coronavirus Disease-2019 Eval: during the Public Health Emergency. This test has been Eval: validated in accordance with the FDA's Guidance Document Policy Eval: for EUA use and Accelerated Template for Laboratories Certified Eval: to Perform High-Complexity Testing Under CLIA: EUA Template Eval: (Updated December 24, 2019) This test is only authorized for the Eval: duration of time the declaration that circumstances exist Eval: justifying the authorization of the emergency use of in vitro Eval: diagnostic tests for detection of SARS-CoV-2 virus and/or Eval: diagnosis of COVID-19 infection under section 564(b)(1) of the Eval: Act, 21U.S.C. 360bbb-3(b)(1), unless the authorization is Eval: terminated or revoked sooner. INFLUENZA A (PCR) Not Detected Ref: Not Detected [618] INFLUENZA B (PCR) Not Detected Ref: Not Detected [618] RSV (PCR) Not Detected Ref: Not Detected [618] Comment: Cepheid GeneXpert (618) Reporting Lab: [facility] [CLIA# [id number]] [place] [address] Report Released Date/Time: Aug 23, 2024@16:14 Provider: RANDAL RAPHAEL Specimen: URINE. [facility] [id number] Specimen Collection Date: Aug 23, 2024@15:30 Test name Result units Ref. range Site Code APPEARANCE CLEAR [618] URINE COLOR LIGHT-YELLOW [618] SPECIFIC GRAVITY 1.014 1.003 - 1.035 [618] URINE PH 6.0 5.0 - 8.0 [618] URINE GLUCOSE NEGATIVE mg/dL Ref: <30 [618] URINE BILIRUBIN NEGATIVE Ref: NEGATIVE [618] URINE KETONES NEGATIVE Ref: NEGATIVE [618] URINE BLOOD NEGATIVE Ref: NEGATIVE [618] URINE PROTEIN NEGATIVE mg/dL Ref: <20 [618] URINE NITRITE NEGATIVE Ref: NEGATIVE [618] LEUKOCYTE ESTERASE NEGATIVE Nola/uL Ref: NEGATIVE [618] URINE WBC/HPF <1 /HPF 0 - 7 [618] URINE RBC/HPF NONE SEEN /HPF 0 - 3 [618] SQUAMOUS EPITHELIAL 6 /HPF [618] URINE BACTERIA NONE SEEN [618] Imaging: CXR: No visible acute cardiopulmonary disease. ED Course/MDM/ASSESSMENT/PLAN: Patient was examined and evaluated shortly after arrival in the emergency department. Physical exam as above does not reveal any evidence of severe pathology. No evidence of flank pain on exam. Patient does have some wheezing and coarse sounds in the lungs. A broad differential diagnosis was considered and workup as above was initiated. Initial thought was that this may be partially treated urinary tract infection, as the patient has only had antibiotics for 2 days. Mother thought was that her cough is likely secondary to viral process. Patient underwent albuterol nebulizer treatments significant improvement in her breathing. Cough settled considerably. Workup as above begins to return. Urinalysis does not reveal any evidence of bleeding or infection. Urine nitrite and leukocyte esterase are negative. Respiratory panel returns negative for COVID, influenza and RSV. Chest x-ray does not reveal any evidence of acute pathology by my read. Radiology later agrees. Reevaluated the patient at this time. She is resting comfortably. I discussed all of the above with her including her laboratory findings and her imaging study in detail. At this time, I am not certain what is causing her symptoms concerning for urinary tract infection. Discussed with her the possibility of a pelvic exam in the emergency department. Also discussed with her the possibility of changing antibiotic to see if this would perhaps help. She was culture negative at the outside facility but I am not able to review that at this time. Ultimately, and shared decision making it was felt reasonable to discontinue the Omnicef, and start ciprofloxacin 500 mg p.o. twice daily x 5 days. If this is not necessarily improving her symptoms, I would like her to follow-up with her primary physician in 5 to 7 days for further workup. This may include a pelvic exam. With regard to her cough, I suspect she has a viral induced bronchitis. Recommended that she use [id number] medicines like ibuprofen or Tylenol as needed for comfort. She did receive a prescription for an albuterol inhaler to be used as needed for cough and wheezing. The patient was quite amenable with all of the above. She was then discharged home in stable condition. Warning signs discussed. Edu: was informed of available results, impression, plan of care - verbalized understanding/agreement. Condition: Stable Disposition: Home Diagnoses: Dysuria (ICD-10-CM R30.0) (Primary) Acute Bronchitis, unspecified (ICD-10-CM J20.9) Kam Raphael MD /los/ RANDAL RAPHAEL MD PHYSICIAN Signed: 08/23/2024 17:21 RANDAL RAPHAEL [facility] Aug 23, 2024 02:37 PM NURSING EMERGENCY DEPT TRIAGE NOTE: LOCAL TITLE: EMERGENCY DEPARTMENT NURSING TRIAGE NOTE STANDARD TITLE: NURSING EMERGENCY DEPT TRIAGE NOTE DATE OF NOTE: AUG 23, 2024@14:37 ENTRY DATE: AUG 23, 2024@14:38:03 AUTHOR: HUE MURRELL EXP COSIGNER: URGENCY: STATUS: COMPLETED Emergency Department/Urgent Care Center Triage Patient age:34 Sex: FEMALE On arrival patient was: AMBULATORY Patient phone number: Allergies: METOPROLOL (Jan 14, 2023) REGLAN (Jan 14, 2023) Subjective/Chief Complaint: Right Flank Pain Objective: Pt arrives to ED with c/o right flank pain. Pt says that this started 1 week ago. Pt seen at [facility] in [place] and no UTI noted and called to stop Abx. Pt has painful and urgency with urination at times. Right flank pain is constant 5/10 The patient is not a fall risk. Vital Signs * Temperature 98.6 F (37 C) Pulse 76 Respirations 14 Blood Pressure 120/84 Pain scale recorded: 5 Pulse Oximetry 98 Room Air Emergency Severity Index (ISSAC) level Level 3 [...] BY MOUTH EVERY ACTIVE DAY FOR HEADACHES 5) SUCRALFATE 1GM TAB TAKE ONE TABLET BY MOUTH FOUR ACTIVE TIMES A DAY NEEDED FOR STOMACH ACID Active Non-VA Medications Status 1) Non-VA NORTRIPTYLINE HCL 10MG CAP 10MG MOUTH AT ACTIVE BEDTIME 2) Non-VA ONDANSETRON TAB 4MG [id number] ACTIVE 7 Total Medications Current Problems: Exposure to potentially hazardous substaTraumatic brain injury (SCT 419744755) Temporomandibular joint disorder (SCT 41Unintentional weight loss (SCT 353703129) Mood disorder ([facility] [id number]) Headache ([facility] [id number]) Family history: Myocardial infarction atHistory of cerebrospinal fluid leak (ICD-10-CM R69.) History of gestational diabetes mellitusGeneralized enlarged lymph nodes ([facility] [id number]) Splenomegaly ([facility] [id number]) Identification of Seniors at Risk (ISAR):* Defer screen Age 34 Suicide Screen: [place] Suicide Severity Rating Scale (C-SSRS) screener 1. [...] due to responses to other questions. /los/ HUE MURRELL JR, RN Surgical Services Asst Nurse Nutrition Specialist Signed: 08/23/2024 14:41 HUE MURRELL JR [facility]
--- OUTSIDE RECORDS SUMMARY | 2024-09-12 04:30 | XMS_ITS | Encounter Summary ---
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 Date/Time Encounter Type Encounter Description Reason Pro vider Source Sep 12, 2024 09:30 AM Outpatient Encounter POLYTRAUMA/TBI IND E Encounter Template Text not used by [place] Plan of Treatment: Future Appointments (+ 6 months) and Future Tests (+/- 45 days) The Plan of Treatment section includes future care activities for the patient from all [place] treatmentfacilities. This section includes future appointments and future orders which are active, pending or scheduled. Future Appointments This section includes appointments that were scheduled to occur 6 months from the date of the Encounter, up to a maximum of 20 appointments. The data comes from all [place] treatment facilities. Appointment Date/Time Appointment Type Appointme nt Facility Name Sep 19, 2024 01:00 PM AMBULATORY - NONE [facility] Oct 04, 2024 09:00 AM AMBULATORY - REHAB MEDICIN [facility] Oct 10, 2024 09:30 AM AMBULATORY - REHAB MEDICIN [facility] Oct 25, 2024 10:00 AM AMBULATORY - MEDICINE [facility] Oct 25, 2024 05:10 PM AMBULATORY - REHAB MEDICIN E [facility] Nov 15, 2024 12:45 PM AM[facility]ORY - NONE [facility] Nov 22, 2024 09:30 AM [facility]ONE [facility] Nov 22, 2024 10:30 AM AMBULATORY - MEDICINE [facility] Nov 25, 2024 09:30 AM AMBULATORY - SURGERY [facility] Nov 26, 2024 09:29 AM [facility] Nov 30, 2024 11:00 AM [facility] Dec 02, 2024 08:00 AM AMBULATORY - REHAB MEDICIN [facility] Dec 09, 2024 08:30 AM [facility] - NONE [facility] Dec 09, 2024 09:30 AM [facility]ONE [facility] Dec 09, 2024 10:30 AM [facility]ONE [facility] Dec 09, 2024 10:45 AM [facility] [facility] Dec 13, 2024 01:00 PM AMBULATORY - REHAB MEDICIN E [facility] Dec 16, 2024 07:00 AM [facility]ONE [facility] [facility] [facility] Dec 21, 2024 10:00 AM AMBULATORY - REHAB MEDICIN E [facility] Dec 22, 2024 11:00 AM AMBULATORY - SURGERY [facility] Active, Pending, and Scheduled Orders This section includes a listing of several types of active, pending, and scheduled orders, including clinic medications orders, diagnostic test orders, procedure orders and consult orders; where the start date of the order is 45 days before the date of the Encounter or 45 days after the date of theEncounter. The data comes from all [place] treatment [facility]. Test Date/Time Test Type Test Details Facility Name Oct 25, 2024 12:00 AM Laboratory - Chemi stry Order CBC & DIFF BLOOD ONCO SP ONCE [facility] Lab Results: +/- 30 days of the [...] Type Comment Aug 23, 2024 03:57 PM [facility] COVID-19 AND FLU/RSV DIAG PANEL(CEPHEID) NASOPHARYNGEAL Specimen Type: NASOPHARYNGEAL Comment: CepModtiid GeneXpert (618) Ordering Provider: RANDAL CHAMBERLAIN Report Released Date/Time: Aug 23, 2024 03:43 PM Reporting Lab: [facility] [address] Performing Lab: [facility] [address] COVID-19 (CEPHEID) Not Detected Not Dete cted INFLUENZA A (PCR) Not Detected Not Detec maeve INFLUENZA B (PCR) Not Detected Not Detec maeve RSV (PCR) Not Detected Not Detected Aug 23, 2024 03:57 PM [facility] HCG, QUAL URINE Specimen Type: URINE Comment: CepModtiid GeneXpert (618) Ordering Provider: RANDAL CHAMBERLAIN Report Released Date/Time: Aug 23, 2024 03:47 PM Reporting Lab: [facility] [address] Performing Lab: [facility] [address] HCG, QUAL NEGATIVE -neg- Aug 23, 2024 03:30 PM [facility] URINALYSIS URINE Specimen Type : URINE No comment entered. Ordering Provider: RANDAL CHAMBERLAIN Report Released Date/Time: Aug 23, 2024 03:43 PM Reporting Lab: [facility] [address] Performing Lab: [facility] [address] URINE COLOR LIGHT-YELLOW SPECIFIC GRAVITY 1.014 1.003-1.035 URINE BILIRUBIN NEGATIVE NEGATIVE URINE KETONES NEGATIVE NEGATIVE URINE GLUCOSE NEGATIVE mg/dL <30 URINE PROTEIN NEGATIVE mg/dL <20 URINE PH 6.0 5.0-8.0 URINE WBC/HPF <1 /[HPF] 0-7 URINE BACTERIA NONE SEEN URINE RBC/HPF NONE SEEN /[HPF] 0-3 APPEARANCE CLEAR SQUAMOUS EPITHELIAL 6 /[HPF] URINE BLOOD NEGATIVE NEGATIVE URINE NITRITE NEGATIVE NEGATIVE LEUKOCYTE ESTERASE NEGATIVE NEGATIVE Social History: Smoking Status (Most current) and Tobacco Use (All prior to encounter date) This section includes the most current, and the historical, smoking and tobacco- related health factors from the [place] facility where the Encounter took place. Current Smoking Status This section includes the most current smoking, or tobacco-related health factor, from the [place] facility where the Encounter took place. Date/Time Current Smoking Status Comment Facil ity Nov 27, 2023 03:30 PM VA-TOBACCO FORMER USER [facility] Tobacco Use History This section includes a history of the smoking, or tobacco-related health factors, that were collected on or before the date of the Encounter. The data comes from the [place] facility where the Encounter took place. Date/Time Smoking Status/Tobacco Use Comment F acility Nov 27, 2023 03:30 PM VA-TOBACCO QUIT 5 TO < 15 YRS [facility] Jan 14, 2023 09:03 AM VA-TOBACCO FORMER USER [facility] Jan 14, 2023 09:03 AM VA-TOBACCO QUIT 5 TO < 15 YRS [facility] Radiology Reports: +/- 30 days of the [...] the Encounter. The data comes from all [place] treatment facilities. Date/Time Radiology Report Provider Source Sep 19, 2024 12:[address] (CAP) CHEST/ABD /PELVIS (P): AWAIS PADILLA [id number] -[id number] F Exm Date: SEP 19, 2024@12:58 Req Phys: KURT NEWELL Pat Loc: [facility] ONC OSIRIS (Req'g Loc) Img Loc: CT IMAGING Service: Unknown Screen: [place] [address] (Case [id number] COMPLETE) CT (CAP) CHEST W CONTRAST (CT Detailed) CPT:49230 Contrast Media : Non-ionic Iodinated Reason for Study: History of splenomegaly (Case 465 COMPLETE) CT (CAP) ABDOMEN/PELVIS W CONTRAS(CT Detailed) CPT:39462 Contrast Media : Non-ionic Iodinated Clinical History: [place] IS NOT under investigation for COVID-19 or is COVID-19 negative Defer to radiologist for final protocol. History of splenomegaly Responsible provider name and phone number to notify for critical findings if other than user placing the order and pager listed below: User placing orders pager: [phone] LAST 3: Collection DT Specimen Test Name [...] 19, 2024 Date Verified: SEP 19, 2024 Dragline Oiler E-Sig:/ES/WOLFGANG MILLER DO Report: EXAMINATION: CT (CAP) CHEST W CONTRAST, CT (CAP) ABDOMEN/PELVIS W CONTRAST PROVIDED CLINICAL INFORMATION: Reason for Study: History of splenomegaly [place] IS NOT under investigation for COVID-19 or is COVID-19 negative Defer to radiologist for final protocol. History of splenomegaly Responsible provider name and phone number to notify for critical findings if other than user placing the order and pager listed below: User placing orders pager: [phone] LAST 3: Collection DT Specimen History of [...] Primary Interpreting Staff: WOLFGANG MILLER DO, RADIOLOGIST (Dragline Oiler) /WOLFGANG LORENZ [facility] Aug 23, 2024 04:06 PM CHEST 2 VIEWS PA A ND LAT: AWAIS PADILLA [id number] -1990 F Exm Date: AUG 23, 2024@16:06 Req Phys: RANDAL CHAMBERLAIN Loc: [facility] EMERGENCY DEPT WALK-IN (Re Img Loc: MAIN X-RAY Service: Unknown Screen: [place] [address] (Case [id number] COMPLETE) CHEST 2 VIEWS PA AND LAT (RAD Detailed) CPT:12974 Reason for Study: same Clinical History: [place] IS under investigation (PUI) for COVID-19 or is COVID-19+ Cough x 1 day Responsible provider name and phone number to notify for critical findings if other than user placing the order and pager listed below: User placing orders pager: LAST CREATININE [phone] (07/24/24) Report Status: Verified Date Reported: AUG 23, 2024 Date Verified: AUG 23, 2024 Dragline Oiler E-Sig:/ES/CODY CASTILLO MD Report: CHEST 2 VIEWS PA AND LAT 08/23/2024 INDICATION: same COMPARISON: None. FINDINGS: Heart and pulmonary vasculature are within normal limits for size. Lungs are clear. Bones are unremarkable. Impression: No visible acute cardiopulmonary disease. Primary Interpreting Staff: CODY CASTILLO MD, RADIOLOGIST (Dragline Oiler) /CODY RIOS [facility] Pathology Reports: +/- 30 days of the [...] the Encounter. The data comes from all [place] treatment facilities. Date/Time Pathology Report Provider Source Aug 23, 2024 03:57 PM LR MICROBIOLOGY RE PORT: Reporting Lab: [facility] [CLIA# [id number]] [place] [address] Accession [UID]: [id number] [[id number]] Received: Aug 23, 2024@15:57 Collection sample: URINE Collection date: Aug 23, 2024 15:57 Provider: RANDAL CHAMBERLAIN Comment on specimen: RECEIVED IN STERILE CUP Test(s) ordered: CULTURE & SUSCEPTIBILITY...... completed: Aug 25, 2024 * BACTERIOLOGY FINAL REPORT => Aug 25, 2024 07:44 TECH CODE: [id number] CULTURE RESULTS: LESS THAN 10,000 CFU/ML Bacteriology Remark(s): THIS REPORT IS FINAL =--=--=--=--=--=--=--=--=--=--=--=- -=--=--=--=--=--=--=--=--=--=--=--= --=--=-- Performing Laboratory: Bacteriology Report Performed By: [facility] [CLIA# [id number]] [place] [address] [facility]
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
--- OUTSIDE RECORDS SUMMARY | 2024-11-22 05:30 | XMS_ITS | Encounter Summary ---
Author Name [facility] Organization [facility] Address [address] [place] [address] Care Team Providers Care Amf Mechanic Name Role Phone CINDY ZAMORANO Primary Care Provider Unavail able Selected Encounter This section includes the information on record at [place] for the Encounter. Date/Time Encounter Type Encounter Description Reason Provider Source Nov 22, 2024 10:30 AM OFFICE O/P EST HI 40 MIN ONCOLOGY/TUMOR ICD-10-CM R16.1 Splenomegaly, not elsewhere classified [facility] Eunice [facility] Encounter Template Text not used by [place] Assessments - Encounter Diagnoses This section includes the primary and secondary diagnoses documented for the Encounter. Date/Time Primary/Secondary Diagnosis Diagnosis Name Provider Source Nov 22, 2024 10:32 AM PRIMARY [facility], not elsewhere [facility] Nov 22, 2024 10:32 AM SECONDARY Abnormal [facility] Nov 22, 2024 10:32 AM SECONDARY Other acute [facility] Plan of Treatment: Future Appointments (+ 6 months) and Future Tests (+/- 45 days) The Plan of Treatment section includes future care activities for the patient from all [place] treatmentfacilities. This section includes future appointments and future orders which are active, pending or scheduled. Future Appointments This section includes appointments that were scheduled to occur 6 months from the date of the Encounter, up to a maximum of 20 appointments. The data comes from all [place] treatment facilities. Appointment Date/Time Appointment Type Appointme nt Facility Name Nov 25, 2024 09:30 AM AMBULATORY - SURGERY [facility] Nov 26, 2024 09:29 AM [facility] Nov 30, 2024 11:00 AM AMBULATORY - SURGERY [facility] Dec 02, 2024 08:00 AM AMBULATORY - REHAB MEDICIN E [facility] Dec 09, 2024 08:30 AM AM[facility]ULATORY - NONE [facility] Dec 09, 2024 09:30 AM [facility]ORY - NONE [place] [facility] Dec 09, 2024 10:30 AM [facility]ORY - NONE [place] [facility] Dec 09, 2024 10:45 AM AMBULATORY - SURGERY [facility] Dec 13, 2024 01:00 PM AMBULATORY - REHAB MEDICIN E [facility] Dec 16, 2024 07:00 AM AM[facility]ULATORY - NONE [place] [facility] Dec 21, 2024 10:00 AM AMBULATORY - REHAB MEDICIN E [facility] Dec 22, 2024 11:00 AM AMBULATORY - SURGERY [facility] Dec 23, 2024 08:00 AM AMBULATORY - REHAB MEDICIN E [facility] Dec 28, 2024 01:00 PM AMBULATORY - REHAB MEDICIN E [facility] Dec 29, 2024 10:00 AM AMBULATORY - REHAB MEDICIN E [facility] Jan 02, 2025 08:30 AM AMBULATORY - REHAB MEDICIN E [facility] Jan 05, 2025 01:58 PM [facility] Jan 06, 2025 03:00 PM AMBULATORY - REHAB MEDICIN E [facility] Jan 10, 2025 09:00 AM AMBULATORY - REHAB MEDICIN E [facility] Jan 12, 2025 02:20 PM [facility] Active, Pending, and Scheduled Orders This section includes a listing of several types of active, pending, and scheduled orders, including clinic medications orders, diagnostic test orders, procedure orders and consult orders; where the start date of the order is 45 days before the date of the Encounter or 45 days after the date of theEncounter. The data comes from all [place] treatment facilities. Test Date/Time Test Type Test Details Facility Name Oct 25, 2024 12:00 AM Laboratory - Chemi stry Order CBC & DIFF BLOOD ONCO SP ONCE [facility] Nov 30, 2024 12:00 AM Laboratory - Chemi stry Order CBC BLOOD STAT SP ONCE [facility] Nov 30, 2024 12:00 AM Laboratory - Chemi stry Order PROTHROMBIN TIME/INR PLASMA STAT SP [facility] Nov 30, 2024 12:00 AM Laboratory - Chemi stry Order CREATININE(INCLUDES EGFR) PLASMA STAT SP ONCE [facility] Lab Results: +/- 30 days of the encounter This section includes the Chemistry and Hematology Lab Results on record with [place] for the patient. Radiology Reports and Pathology Reports are provided separately, in subsequent sections. Lab Results This section contains the Chemistry/Hematology Results that were resulted 30 days before or 30 daysafter the date of the Encounter. Date/Time Source Result Type Result - Unit Interpretation Reference Range Specimen Type Comment Dec 09, 2024 08:34 AM [facility] PROTHROMBIN TIME/INR PLASMA Specimen Type: PLASMA No comment entered. Ordering Provider: STEPHEN FRANCOIS Report Released Date/Time: Dec 06, 2024 09:29 AM Reporting Lab: [facility] [id number] Performing Lab: [facility] [id number] .INR 1.1 0.8-1.1 .PT 12.9 s H 9.4-12.5 Dec 09, 2024 08:34 AM [facility] CREATININE(INCLUDES EGFR) PLASMA Sp ecimen Type: PLASMA No comment entered. Ordering Provider: STEPHEN FRANCOIS Report Released Date/Time: Dec 06, 2024 09:29 AM Reporting Lab: [facility] [phone] Performing Lab: [facility] [phone] CREATININE 0.6 mg/dL 0.5-1.0 .CREAT EGFR(CKD-EPI) >90 >60 Dec 09, 2024 08:34 AM [facility] CBC & DIFF BLOOD Specimen Type : BLOOD Comment: Automated Differential Performed Ordering Provider: STEPHEN FRANCOIS Report Released Date/Time: Dec 06, 2024 09:29 AM Reporting Lab: [facility] [id number] Performing Lab: [facility] [phone] WBC 4.4 4.0-11.0 RBC 4.42 4.00-5.40 HGB 13.5 g/dL 11.5-16.0 HCT 39.1 34.5-48.0 MCV 88.5 fL 80.0-100.0 MCH 30.5 pg 27.0-33.0 MCHC 34.5 g/dL 32.0-37.5 PLT 176 150-400 MPV 11.4 fL 9.1-13.0 NEUT 60.0 40.0-80.0 LYMPHS 31.6 15.0-45.0 MONO 6.6 2.0-12.0 EOSINO 1.1 0.0-6.0 BASO 0.5 0.0-2.0 RDW 11.9 11.5-14.5 ABS LYMPH 1.4 1.0-4.0 ABS MONO 0.3 0.1-1.0 ABS NEUT 2.6 2.0-7.7 ABS EOS 0.1 0.0-0.5 ABS BASO 0.0 0.0-0.2 IG(META,MYELO,PRO) 0.2 ABS IMMATURE GRAN 0.0 0.0-0.1 Nov 22, 2024 09:45 AM [facility] URIC ACID PLASMA Specimen Type: PLASMA No comment entered. Ordering Provider: KURT NEWELL Report Released Date/Time: Apr 26, 2024 10:33 AM Reporting Lab: [facility] [phone] Performing Lab: [facility] [phone] URIC ACID 5.4 mg/dL 2.5-6.2 Nov 22, 2024 09:45 AM [facility] LD,TOTAL PLASMA Specimen Type: PLASMA No comment entered. Ordering Provider: KURT NEWELL Report Released Date/Time: Apr 26, 2024 10:33 AM Reporting Lab: [facility] [phone] Performing Lab: [facility] [phone] LD,TOTAL 194 U/L 125-220 Nov 22, 2024 09:45 AM [facility] COMPREHENSIVE METABOLIC PANEL+MG PLASMA Specimen Type: PLASMA No comment entered. Ordering Provider: KURT NEWELL Report Released Date/Time: Apr 26, 2024 10:33 AM Reporting Lab: [facility] [phone] Performing Lab: [facility] [phone] CREATININE 0.6 mg/dL 0.5-1.0 UREA NITROGEN 12 mg/dL 7-20 GLUCOSE 118 mg/dL H 70-100 SODIUM 138 mmol/L 136-145 POTASSIUM 3.8 mmol/L 3.5-5.1 CHLORIDE 105 mmol/L 98-107 CO2 27 mmol/L 22-29 CALCIUM 8.7 mg/dL 8.4-10.2 PROTEIN,TOTAL 7.4 g/dL 6.4-8.3 ALBUMIN 4.3 g/dL 3.5-5.0 BILIRUBIN, TOTAL 0.4 mg/dL 0.2-1.2 MAGNESIUM 1.9 mg/dL 1.6-2.6 ANION GAP 6 mmol/L 5-15 ALKALINE PHOSPHATASE 77 U/L 40-150 ALT/SGPT 15 U/L <33 AST/SGOT 25 U/L 11-34 .CREAT EGFR(CKD-EPI) >90 >60 Nov 22, 2024 09:44 AM [facility] CBC & DIFF BLOOD Specimen Type: BLOOD Comment: Automated Differential Performed Ordering Provider: KURT NEWELL Report Released Date/Time: Oct 25, 2024 10:32 AM Reporting Lab: [facility] [phone] Performing Lab: [facility] [phone] WBC 5.4 4.0-11.0 RBC 4.58 4.00-5.40 HGB 13.6 g/dL 11.5-16.0 HCT 39.9 34.5-48.0 MCV 87.1 fL 80.0-100.0 MCH 29.7 pg 27.0-33.0 MCHC 34.1 g/dL 32.0-37.5 PLT 190 150-400 MPV 11.7 fL 9.1-13.0 NEUT 61.8 40.0-80.0 LYMPHS 31.0 15.0-45.0 MONO 4.5 2.0-12.0 EOSINO 2.1 0.0-6.0 BASO 0.4 0.0-2.0 RDW 11.6 11.5-14.5 ABS LYMPH 1.7 1.0-4.0 ABS MONO 0.2 0.1-1.0 ABS NEUT 3.3 2.0-7.7 ABS EOS 0.1 0.0-0.5 ABS BASO 0.0 0.0-0.2 IG(META,MYELO,PRO) 0.2 ABS IMMATURE GRAN 0.0 0.0-0.1 Nov 15, 2024 12:58 PM [facility] FINGERSTICK GLUCOSE BLOOD Specimen Type: BLOOD Comment: Save Result Ordering Provider: CINDY ZAMORANO Report Released Date/Time: Nov 17, 2024 07:56 AM Reporting Lab: [facility] [phone] Performing Lab: [facility] [phone] FINGERSTICK GLUCOSE 87 mg/dL 70-100 Vital Signs: All taken on the encounter date This section contains inpatient and outpatient Vital Signs collected on the date of the Encounter. Date/Time Temperature Pulse Blood Pressure Respiratory Rate SP02 Pain Height Weight Body Mass Index Source Nov 22, 2024 10:09 AM 97.2 73 122/86 16 98 0 223.8 35 [facility] Social History: Smoking Status (Most current) and Tobacco Use (All prior to encounter date) This section includes the most current, and the historical, smoking and tobacco- related health factors from the [place] facility where the Encounter took place. Current Smoking Status This section includes the most current smoking, or tobacco-related health factor, from the [place] facility where the Encounter took place. Date/Time Current Smoking Status Comment Srini ity Nov 27, 2023 03:30 PM MS-TOBACCO QUIT 5 TO < 15 YRS [facility] Tobacco Use History This section includes a history of the smoking, or tobacco-related health factors, that were collected on or before the date of the Encounter. The data comes from the [place] facility where the Encounter took place. Date/Time Smoking Status/Tobacco Use Comment F acility Nov 27, 2023 03:30 PM MS-TOBACCO QUIT 5 TO < 15 YRS [facility] Jan 14, 2023 09:03 AM VA-TOBACCO FORMER USER [facility] Jan 14, 2023 09:03 AM MS-TOBACCO QUIT 5 TO < 15 YRS [facility] Radiology Reports: +/- 30 days [...] the Encounter. The data comes from all [place] treatment facilities. Date/Time Radiology Report Provider Source Dec 16, 2024 07:03 AM MRI-BRAIN (P): AWAIS PADILLA [id number] -1990 F Exm Date: DEC 16, 2024@07:03 Req Phys: STEPHEN FRANCOIS Loc: [facility] J[facility] AND FIXTURE BUILDER CONSULT-A (Re Img Loc: MRI IMAGING Service: Unknown Screen[place] [address] (Case [id number] COMPLETE) MRI BRAIN/BRAINSTEM W/O CONTRAST (MRI Detailed) CPT:81218 Reason for Study: Myelopathy Clinical History: Did the ordering provider speak with a risk and insurance consultant regarding this imaging exam?No Brain MRI without contrast Myelopathy LAST CREATININE 0.6 (11/22/24) Allergies: METOPROLOL (Jan 14, 2023) REGLAN (Jan 14, 2023) My pager number on record is: [phone]. The pager number/cell phone number above is NOT correct for reporting critical results, I have entered my correct number below: My correct contact # for critial results is:neurosurgery oncall Trainees only: Enter your staff provider's info here: Per Joint Commission Standards, by signing this diagnostic imaging request the ordering provider confirms they have considered patients age and recent imaging history. Report Status: Verified Date Reported: DEC 16, 2024 Date Verified: DEC 16, 2024 Visual Specialist E-Sig:/ES/SUJIT DENIS MD Report: MRI BRAIN/BRAINSTEM W/O CONTRAST 12/16/2024 7:03 AM HISTORY: Myelopathy. TECHNIQUE: MRI of the brain was performed without contrast. CONTRAST: None. COMPARISON: Brain MRI without contrast dated 04/07/2024. FINDINGS: The brain parenchyma demonstrates normal signal and morphology. There is no evidence of an acute infarct. The ventricles are within normal limits in size. No intracranial hemorrhage is identified. No definite intracranial mass is appreciated on this unenhanced study. The major intracranial vascular flow voids are visualized. There has been interval resolution of previous multifocal inflammatory sinus mucosal disease. Previous fluid in the left middle ear and left mastoid air cells has also resolved. The bilateral mastoid air cells and paranasal sinuses are well aerated on the current study. Impression: Compared to 04/07/2024, 1. No evidence of intracranial pathology. 2. Unremarkable brain MRI without contrast. 3. Interval resolution of previous multifocal inflammatory sinus mucosal disease, fluid in the left middle ear, and fluid in left mastoid air cells. Report Sign Date/Time: 12/16/2024 8:01 AM Primary Interpreting Staff: SUJIT DENIS MD, RADIOLOGIST (Visual Specialist) /[facility] SUJIT DENIS [facility] Dec 09, 2024 09:[address] MYELOGRAM THORA CIC (P): AWAIS PADILLA [id number] -1990 F Exm Date: DEC 09, 2024@09:52 Req Phys: STEPHEN FRANCOIS Loc: [facility] NEUROS[facility]G J[employer] FIXTURE BUILDER CONSULT-A (Re Img Loc: CT IMAGING Service: Unknown Screen: [place] [address] (Case [id number] COMPLETE) CT MYELOGRAM THORACIC SPINE (CT Detailed) CPT:93317 CPT Modifiers : 59 DISTINCT PROCEDURAL SERVICE Reason for Study: Myelopathy Clinical History: Myelopathy. Had thoracic mri w wo contrast that is in VISAGE. Reports possible arachnoid cyst at t6 level LAST 3: Collection DT Specimen Test Name Result Units Ref Range 11/22/2024 09:45 PLASMA CREATININE 0.6 mg/dL 0.5 - 1.0 07/24/2024 15:08 PLASMA CREATININE 0.6 mg/dL 0.5 - 1.0 04/26/2024 09:15 PLASMA CREATININE 0.7 mg/dL 0.5 - 1.0 11/22/2024 09:45 PLASMA .CREAT EGFR(CKD-E >90 Ref: >=60 07/24/2024 15:08 PLASMA .CREAT EGFR(CKD-E >90 Ref: >=60 04/26/2024 09:15 PLASMA .CREAT EGFR(CKD-E >90 Ref: >=60 Allergies: ([place] only) METOPROLOL (Jan 14, 2023) REGLAN (Jan 14, 2023) Defer to radiologist for final CT protocol. User Placing Order: STEPHEN FRANCOIS - Office Phone: My pager number on record is: [phone]. The pager number/cell phone number above is NOT correct for reporting critical results, I have entered my correct number below: My correct contact # for critial results is:neurosurgery conveyancer Trainees only: Enter your staff provider's info here: Per Joint Commission Standards, by signing this diagnostic imaging request the ordering provider confirms they have considered patients age and recent imaging history. Report Status: Verified Date Reported: DEC 09, 2024 Date Verified: DEC 09, 2024 Visual Specialist E-Sig:/ES/CARITO POLANCO MD Report: CT Thoracic Spine without Contrast 12/09/2024 9:52 AM Indication: Neck pain. Technique: Performed following introduction of intrathecal contrast under fluoroscopy. 10 mL Omnipaque 350. Dose: DLP: 1281.56, mGy.cm/CTDIvol Mean: 33.14, mGy Comparison: Outside thoracic MRI exams dated 11/10/2024 at 11/22/2024. Findings: Thoracic kyphosis is at the upper limits of the normal range. Slight chronic loss of anterior vertebral body height at a few midthoracic levels. No evidence for recent fracture. Again seen is a shallow deformity along the dorsal surface of the thoracic cord at the T6 level. No solid or defined cystic mass is identified within the dorsal thoracic canal at this level. The appearance is unchanged from 11/10/2024 and 11/22/2024. No evidence for extravasation of intrathecal contrast into the thoracic cord parenchyma at the T6 level. No evidence for an associated T6 ventral dural defect. No other similar spinal cord deformities are identified. The remainder of the cord is morphologically normal, including its tapered conus medullaris termination at the L2 level. At the mid ureter as on this myelogram ventricular No central canal stenosis. No thoracic disc herniations are identified. There is a small partially calcified right central disc herniation at C6-7, causing slight flattening the right ventral surface of the cord. The thoracic and visualized lower cervical foramina are patent. Impression: 1. There is persistent mild deformity along the dorsal surface of the thoracic cord at T6 level, similar to recent thoracic MRI exams. 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 2. There is a small partially calcified right central extrusion at C6-7, with slight deformity of the ventral surface of the cord. 3. Mildly exaggerated thoracic kyphosis, unchanged. Report Sign Date/Time: 12/09/2024 11:29 AM Primary Interpreting Staff: CARITO POLANCO MD, RADIOLOGIST (Visual Specialist) /[facility]OLENTINO [facility] Dec 09, 2024 08:50 AM MYELOGRAM THORACIC (P): AWAIS PADILLA [id number] -1990 F Exm Date: DEC 09, 2024@08:50 Req Phys: STEPHEN FRANCOIS Loc: [facility] NEUROSURG JIG AND FIXTURE BUILDER CONSULT-A (Re Img Loc: MAIN X-RAY Service: Unknown Screen: [place] [address] (Case [id number] COMPLETE) MYELOGRAM THORACIC VIA LUMBAR INJ(RAD Detailed) CPT:37541 Reason for Study: Eval for arachnoid web or cyst at T6 level Clinical History: myelopathy Outside hosptial Thoracic mri w wo contrast is loaded into VISAGE. Please do comparison . thank you Responsible provider name and phone number to notify for critical findings if other than user placing the order and pager listed below: User placing orders pager: [phone] Neurosurgery conveyancer LAST CREATININE 0.6 (11/22/24) Report Status: Verified Date Reported: DEC 09, 2024 Date Verified: DEC 09, 2024 Visual Specialist E-Sig:/ES/CARITO POLANCO MD Report: PROCEDURE: Lumbar puncture with fluoroscopic guidance. Thoracic myelogram. History: Myelopathy. Thoracic MRI shows dorsal lesion at T6. Comparison: Outside recent thoracic MRI exam from the [facility]. Fluoro time: 0.8 minute Dose: Air Kerma: 3.9, mGy, DAP: 3.54, dGy.cm? PROCEDURE: The patient/medical decision-maker understood the limitations, alternatives, and risks of the procedure and requested the procedure be performed. Both iMed and oral consent were obtained. A pre-procedural Time-Out was performed per [facility] policy. The patient was prepped and draped in the usual sterile fashion. Lidocaine was administered for local anesthetic. Under fluoroscopic guidance, a five inch 21 gauge needle was placed into the thecal sac at the L3-4 level with return of clear CSF. 10 mL of Omnipaque 300 was slowly injected, and the contrast was directed into the thoracic thecal sac via Trendelenburg positioning of the fluoroscopy table. The needle was then removed and a dressing applied to the puncture site. The patient appeared to tolerate these procedures well, was given postprocedure instructions and was transported to CT in satisfactory condition. No immediate complication. Postprocedure orders were placed in CPRS. I also called ALYSIA Santo in the Short Stay Unit for handoff communication/instructions . Impression: Successful lumbar puncture with thoracic myelography. Report Sign Date/Time: 12/09/2024 10:38 AM Primary Interpreting Staff: CARITO POLANCO MD, RADIOLOGIST (Visual Specialist) /CARITO TOLENTINO [facility] Nov 22, 2024 07:12 PM NON MS MRI THORACI C SPINE: AWAIS PADILLA [id number] -1990 F Exm Date: NOV 22, 2024@19:12 Req Phys: CINDY ZAMORANO Loc: [facility] XRAY GENERAL AM (Req'g Loc Img Loc: OUTSOURCE MRI Service: Unknown Screen: Patient answered no (Case [id number] COMPLETE) NON [place] MRI THORACIC SPINE (MRI Detailed) CPT:40185 Reason for Study: OUTSIDE STUDY Clinical History: OUTSIDE STUDY Report Status: Electronically Filed Date Reported: NOV 30, 2024 Report: This is an outside Imaging study and/or report imported for continuity of patient care. This Imaging study and/or report was not reviewed or verified by a [place] Radiologist. Impression: This is an outside Imaging study and/or report imported for continuity of patient care. This Imaging study and/or report was not reviewed or verified by a [place] Radiologist. Primary Diagnostic Code: VERIFIED BY: / *ELECTRONICALLY FILED* [facility] Nov 15, 2024 12:[address] BODY W/O CO NTRAST (P): AWAIS PADILLA [id number] -1990 F Exm Date: NOV 15, 2024@12:39 Req Phys: KURT NEWELL Pat Loc: [facility] ONC [facility] (Req'g Loc) Img Loc: NUC MED Service: Unknown Screen: [place] [address] (Case [id number] COMPLETE) SKULL-THIGH PET IMAGE W/CT (NM Detailed) CPT:10363 Reason for Study: Evaluation for malignacy (Case 1266 COMPLETE) F-18 FDG (NM Detailed) CPT:A9552 Clinical History: Per Joint Commission Standards, by signing this diagnostic imaging request the ordering provider confirms they have considered patients age and recent imaging history. Splenomelgaly, evaluation for malignancy Responsible provider name and phone number to notify for critical findings if other than user placing the order and pager listed below: User placing orders pager: [phone] LAST CREATININE 0.6 (07/24/24) Report Status: Verified Date Reported: NOV 15, 2024 Date Verified: NOV 15, 2024 Visual Specialist E-Sig:/ES/CAIN SMART MD Report: PET/CT SCAN INDICATION: Evaluation for malignancy. Splenomegaly. COMPARISON: No prior PET/CT. TECHNIQUE: Following the administration of oral contrast, low dose CT images were obtained from the skull base to the upper thighs during quiet breathing. 56 minutes following the administration of 10.3 mCi of F-18 FDG into the right AC, PET imaging was performed from the skull base to the upper thighs. Blood glucose: 87 mg/dl. Dosimetry: Total DLP 733.05 mGy*cm. CT for attenuation correction and localization only. FINDINGS: HEAD AND NECK: No compelling site of FDG uptake outside the physiologic variation. FDG activity within salivary glands, tonsillar tissue oral cavity also seems within physiologic limits. CHEST: Evaluation of the lungs limited secondary to respiratory motion. Within this limitation, no site of FDG uptake outside the physiologic variation exceeding background activity. Specifically, no mediastinal, hilar, or axillary lymph nodes with FDG uptake exceeding background activity. No site of FDG uptake within the bilateral lungs exceeding blood pool activity. Please note that patient had a CT chest 09/19/2024 for detailed description of radiographic findings. ABDOMEN AND PELVIS: No FDG avid lesion within the abdomen and pelvis outside the physiologic variation. No focal FDG uptake within the liver exceeding hepatic background activity. No focal FDG uptake within the spleen. Splenic uptake seems diffusely within physiologic limits, not exceeding liver activity. Bilateral adrenal uptake within Hologic limits. No lymph nodes within the abdomen and pelvis with FDG uptake significantly exceeding background activity. Please note that patient had a CT abdomen pelvis 09/19/2024 for description of radiographic findings. Likely small splenule series 4 image 163. MUSCULOSKELETAL: No focal area of FDG uptake within the bone/bone marrow significantly exceeding background activity. Impression: No abnormal site of FDG uptake identified. Report Sign Date/Time: 11/15/2024 2:58 PM Primary Diagnostic Code: NO ALERT REQUIRED Primary Interpreting Staff: CAIN SMART MD, RADIOLOGY STAFF PHYSICIAN (Visual Specialist) /CAIN CR [facility] Nov 10, 2024 10:23 AM NON [place] MRI THORACI C SPINE: AWAIS PADILLA [id number] -1990 F Exm Date: NOV 10, 2024@10:23 Req Phys: CINDY ZAMORANO Pat Loc: [facility] XRAY GENERAL AM (Req'g Loc Img Loc: OUTSOURCE MRI Service: Unknown Screen: Patient answered no (Case [id number] COMPLETE) NON [facility] THORACIC SPINE (MRI Detailed) CPT:26897 Reason for Study: OUTSIDE STUDY Clinical History: OUTSIDE STUDY Report Status: Electronically Filed Date Reported: NOV 30, 2024 Report: This is an outside Imaging study and/or report imported for continuity of patient care. This Imaging study and/or report was not reviewed or verified by a [place] Radiologist. Impression: This is an outside Imaging study and/or report imported for continuity of patient care. This Imaging study and/or report was not reviewed or verified by a [place] Radiologist. Primary Diagnostic Code: VERIFIED BY: / *ELECTRONICALLY FILED* [facility] Nov 10, 2024 10:03 AM NON [facility] MRI CERVICA L SPINE: AWAIS PADILLA [id number] -[id number] F Exm Date: NOV 10, 2024@10:03 Req Phys: CINDY ZAMORANO Loc: [facility] XRAY GENERAL AM (Req'g Loc Img Loc: OUTSOURCE MRI Service: Unknown Screen: Patient answered no (Case [id number] COMPLETE) NON [place] MRI CERVICAL SPINE (MRI Detailed) CPT:02043 Reason for Study: OUTSIDE STUDY Clinical History: OUTSIDE STUDY Report Status: Electronically Filed Date Reported: NOV 30, 2024 Report: This is an outside Imaging study and/or report imported for continuity of patient care. This Imaging study and/or report was not reviewed or verified by a [place] Radiologist. Impression: This is an outside Imaging study and/or report imported for continuity of patient care. This Imaging study and/or report was not reviewed or verified by a [place] Radiologist. Primary Diagnostic Code: VERIFIED BY: / *ELECTRONICALLY FILED* [facility] Nov 10, 2024 09:46 AM NON [facility] MRI LUMBAR SPINE: AWAIS PADILLA [id number] F Exm Date: NOV 10, 2024@09:46 Req Phys: CINDY ZAMORANO Loc: [facility] XRAY GENERAL AM (Req'g Loc Img Loc: OUTSOURCE MRI Service: Unknown Screen: Patient answered no (Case [id number] COMPLETE) NON [facility] MRI LUMBAR SPINE (MRI Detailed) CPT:06399 Reason for Study: OUTSIDE STUDY Clinical History: OUTSIDE STUDY Report Status: Electronically Filed Date Reported: NOV 30, 2024 Report: This is an outside Imaging study and/or report imported for continuity of patient care. This Imaging study and/or report was not reviewed or verified by a [place] Radiologist. Impression: This is an outside Imaging study and/or report imported for continuity of patient care. This Imaging study and/or report was not reviewed or verified by a [place] Radiologist. Primary Diagnostic Code: VERIFIED BY: / *ELECTRONICALLY FILED* [facility] Encounter Notes: All associated encounter notes This section contains the clinical notes associated to the Encounter. Date/Time Encounter Note(s) Provider Source Nov 22, 2024 10:31 AM HEMATOLOGY AND ONCOLOGY ATTENDING NOTE: LOCAL TITLE: HEME/ONC CLINIC NOTE STANDARD TITLE: HEMATOLOGY AND ONCOLOGY ATTENDING NOTE DATE OF NOTE: NOV 22, 2024@10:31 ENTRY DATE: NOV 22, 2024@10:31:25 AUTHOR: KURT NEWELL COSIGNER: URGENCY: STATUS: COMPLETED Hematology/Oncology Clinic Note Date of Service: 11/22/24 HPI: 34-year-old female with past medical history significant for chronic brain injury who presents for follow-up of abdominal pain and splenomegaly. The patient presents for follow-up today. Reports mild sinus congestion with mild non-productive cough. No chest pain. No SOB. No fever/chills. Patient reports that she was seen by Neurology at a non-[facility] facility. 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 Repeat scan is pending. Reports some back pain, but no new weakness/numbness. No incontinence. No abdominal pain today. MEDS Active Outpatient Medications (including Supplies): CARBOXYMETHYLCELLULOSE NA 0.25% OPH SOLN INSTILL 1 DROP IN ACTIVE BOTH EYES FOUR TIMES A DAY Indication: FOR DRY EYES ONDANSETRON HCL 4MG TAB TAKE ONE TABLET BY MOUTH EVERY 12 ACTIVE HOURS NEEDED Indication: FOR NAUSEA PANTOPRAZOLE NA 40MG EC TAB TAKE ONE TABLET BY MOUTH TWICE ACTIVE A DAY FOR 2 WEEKS, THEN TAKE ONE TABLET EVERY DAY Indication: FOR STOMACH ACID RIBOFLAVIN 100MG TAB TAKE FOUR TABLETS BY MOUTH EVERY DAY ACTIVE Indication: FOR HEADACHES Non-VA NORTRIPTYLINE HCL 10MG CAP 10MG MOUTH AT BEDTIME ACTIVE Non-VA ONDANSETRON TAB 4MG [id number] ACTIVE 6 Total Medications Allergies: METOPROLOL (Jan 14, 2023) REGLAN (Jan 14, 2023) Nurse's notes reviewed. Past medical history (list previous surgeries/illnesses/dates): Active Problems: Exposure to potentially hazardous substaTraumatic brain injury (SCT 677670784) Temporomandibular joint disorder (SCT 41Unintentional weight loss (SCT 034618575) Mood disorder (SCT 44392771) Headache (SCT 72205698) Family history: Myocardial infarction atHistory of cerebrospinal fluid leak (ICD-10-CM R69.) History of gestational diabetes mellitusGeneralized enlarged lymph nodes ([facility] [id number]) Splenomegaly ([facility] [id number]) Physical Exam: Vital signs: Height: 67 in [170.2 cm] (02/23/2024 10:25) Weight: 223.8 lb [101.51 kg] (11/22/2024 10:09) BSA: 2.19 BMI: 35.1 BP: 122/86 (11/22/2024 10:09) Pulse: 73 (11/22/2024 10:09) Resp: 16 (11/22/2024 10:09) Temp: 97.2 F [36.2 C] (11/22/2024 10:09) Pain: 0 (11/22/2024 10:09) O2 Sat: 98% (11/22/2024 10:09) GEN: AAO X 3, in NAD HEENT: Increased b/l TM bulging. Minimal erythema, anitcteric sclera LYMPH: No palpable cervical, axillary, or inguinal adenopathy CV: RRR, no m/r/g PULM: CTAB, no w/r/r ABD: Soft, NT/ND, no HSM EXT: No c/e/e Laboratory Data: CBC: HGB 13.6 (11/22/24) WBC 5.4 (11/22/24) ABS NEUT 3.3 (11/22/24) PLT 190 (11/22/24) Chemistries: UREA NITROGEN 12 (11/22/24) CREATININE 0.6 (11/22/24) CALCIUM 8.7 (11/22/24) PO4 3.2 (01/19/24) POTASSIUM 3.8 (11/22/24) MAGNESIUM 1.9 (11/22/24) POTASSIUM 3.8 (11/22/24) CHLORIDE 105 (11/22/24) SODIUM 138 (11/22/24) CO2 27 (11/22/24) SGOT 25 (11/22/24) SGPT 15 (11/22/24) BILIRUBIN, TOTAL 0.4 (11/22/24) LD,TOTAL 194 (11/22/24) PET/CT (11/15/24) FINDINGS: HEAD AND NECK: No compelling site of FDG uptake outside the physiologic variation. FDG activity within salivary glands, tonsillar tissue oral cavity also seems within physiologic limits. CHEST: Evaluation of the lungs limited secondary to respiratory motion. Within this limitation, no site of FDG uptake outside the physiologic variation exceeding background activity. Specifically, no mediastinal, hilar, or axillary lymph nodes with FDG uptake exceeding background activity. No site of FDG uptake within the bilateral lungs exceeding blood pool activity. Please note that patient had a CT chest 09/19/2024 for detailed description of radiographic findings. ABDOMEN AND PELVIS: No FDG avid lesion within the abdomen and pelvis outside the physiologic variation. No focal FDG uptake within the liver exceeding hepatic background activity. No focal FDG uptake within the spleen. Splenic uptake seems diffusely within physiologic limits, not exceeding liver activity. Bilateral adrenal uptake within Hologic limits. No lymph nodes within the abdomen and pelvis with FDG uptake significantly exceeding background activity. Please note that patient had a CT abdomen pelvis 09/19/2024 for description of radiographic findings. Likely small splenule series 4 image 163. MUSCULOSKELETAL: No focal area of FDG uptake within the bone/bone marrow significantly exceeding background activity. Impression: No abnormal site of FDG uptake identified. ASSESSMENT/DIAGNOSIS: 34-year-old female with past medical history significant for chronic brain injury who presents for follow-up of abdominal pain and splenomegaly. Recent PET/CT demonstrates no evidence of malignancy. Patient will follow-up with ouside Neurolgist for her recent MRI findings. Notified [facility]. Will prescribe a short course of doxycycline for sinusitis symptoms. PLAN: - Doxycycline 100mg BID X 5 days. Patient to follow-up with PCP if symptoms do not improve - Patient to follow-up with outside Neurology - Follow-up in 3 months Counseling Time: 35 minutes Total Visit Time: 40 minutes /los/ KURT NEWELL HEM/ONC STAFF PHYSICIAN Signed: 11/30/2024 08:47 KURT NEWELL [facility] Nov 22, 2024 10:11 AM INTERNAL MEDICINE OUTPATIENT NOTE: LOCAL TITLE: MEDICINE CLINIC NURSING NOTE STANDARD TITLE: INTERNAL MEDICINE OUTPATIENT NOTE DATE OF NOTE: NOV 22, 2024@10:11 ENTRY DATE: NOV 22, 2024@10:11:49 AUTHOR: JOSUE HSU EXP COSIGNER: URGENCY: STATUS: COMPLETED TYPE OF VISIT: Appointment Check In Type of appointment: In-person appointment REASON FOR VISIT: scheduled visit ALLERGIES: METOPROLOL (Jan 14, 2023) REGLAN (Jan 14, 2023) VITAL SIGNS: Blood Pressure: 122/86 (11/22/2024 10:09) Pulse: 73 (11/22/2024 10:09) Respiration: 16 (11/22/2024 10:09) Temperature: 97.2 F [36.2 C] (11/22/2024 10:09) Weight: 223.8 lb [101.51 kg] (11/22/2024 10:09) Height: 67 in [170.2 cm] (02/23/2024 10:25) BMI: 35.1 O2 Sat: 98% (11/22/2024 10:09) Pain: 0 (11/22/2024 10:09) MEDICATION Over the Counter/Herbal Medications: The patient states that they take some outside medications and/or herbals. /los/ JOSUE HSU LPN LPN Signed: 11/22/2024 10:12 JOSUE HSU [facility]
--- OUTSIDE RECORDS SUMMARY | 2024-11-25 04:30 | XMS_ITS | Encounter Summary ---
Author Name Department of [facility] ([place] Organization Department of [facility] Address [address] [place] [address] Care Team Providers Care Painter Drum Name Role Phone CINDY ZAMORANO Primary Care Provider Unavail able Selected Encounter This section includes the information on record at [place] for the Encounter. Date/Time Encounter Type Encounter Description Reason Provider Source Nov 25, 2024 09:30 AM OFFICE O/P EST MOD 30 MIN POLYTRAUMA/TBI IND ICD-10-CM H55.81 Deficient saccadic eye movements DAISY SCHWARTZ [place] Encounter Template Text not used by [place] Assessments - Encounter Diagnoses This section includes the primary and secondary diagnoses documented for the Encounter. Date/Time Primary/Secondary Diagnosis Diagnosis Name Provider Source Jan 03, 2025 10:04 AM PRIMARY Deficient saccadic eye movements DAISY SCHWARTZ [facility] Jan 03, 2025 10:04 AM SECONDARY Deficient smooth pursuit eye movements DAISY SCHWARTZ [facility] Jan 03, 2025 10:04 AM SECONDARY Esophoria DAISY SCHWARTZ [facility] Jan 03, 2025 10:04 AM SECONDARY Personal history of traumatic brain injury DAISY SCHWARTZ SA [facility] Plan of Treatment: Future Appointments (+ 6 months) and Future Tests (+/- 45 days) The Plan of Treatment section includes future care activities for the patient from all [place] [facility]. This section includes future appointments and future orders which are active, pending or scheduled. Future Appointments This section includes appointments that were scheduled to occur 6 months from the date of the Encounter, up to a maximum of 20 appointments. The data comes from all [facility]. Appointment Date/Time Appointment Type Appointme nt Facility Name Nov 26, 2024 09:29 AM AMBULATORY [place]ICINE [place] [facility] Nov 30, 2024 11:00 AM AMBULATORY - SURGERY [place] [facility] Dec 02, 2024 08:00 AM AMBULATORY - REHAB MEDICIN E [facility] Dec 09, 2024 08:30 AM AMBULATORY - NONE [place] [facility] Dec 09, 2024 09:30 AM AMBULATORY - NONE [place] [facility] Dec 09, 2024 10:30 AM AMBULATORY - NONE [place] [facility] Dec 09, 2024 10:45 AM AMBULATORY - SURGERY [place] [facility] Dec 13, 2024 01:00 PM AMBULATORY - REHAB MEDICIN E [facility] Dec 16, 2024 07:00 AM AMBULATORY - NONE [place] [facility] Dec 21, 2024 10:00 AM AMBULATORY - REHAB MEDICIN E [facility] Dec 22, 2024 11:00 AM AMBULATORY - SURGERY [place] [facility] Dec 23, 2024 08:00 AM AMBULATORY - REHAB MEDICIN E [facility] Dec 28, 2024 01:00 PM AMBULATORY - REHAB MEDICIN E [facility] Dec 29, 2024 10:00 AM AMBULATORY - REHAB MEDICIN E [facility] Jan 02, 2025 08:30 AM AMBULATORY - REHAB MEDICIN E [facility] Jan 05, 2025 01:58 PM AMBUL[place]ORY - [place]ICINE [place] [facility] Jan 06, 2025 03:00 PM AMBULATORY - REHAB MEDICIN E [facility] Jan 10, 2025 09:00 AM AMBULATORY - REHAB MEDICIN E [facility] Jan 12, 2025 02:20 PM AMBULATORY - NONE [place] [facility] Jan 16, 2025 10:00 AM AMBULATORY - REHAB MEDICIN E [facility] Active, Pending, and Scheduled Orders This section includes a listing of several types of active, pending, and scheduled orders, including clinic medications orders, diagnostic test orders, procedure orders and consult orders; where the start date of the order is 45 days before the date of the Encounter or 45 days after the date of theEncounter. The data comes from all [place] treatment facilities. Test Date/Time Test Type Test Details Facility Name Oct 25, 2024 12:00 AM Laboratory - Chemi stry Order CBC & DIFF BLOOD ONCO SP ONCE [facility] Nov 30, 2024 12:00 AM Laboratory - Chemi stry Order CBC BLOOD STAT SP ONCE [facility] Nov 30, 2024 12:00 AM Laboratory - Chemi stry Order CREATININE(INCLUDES EGFR) PLASMA STAT SP ONCE [facility] Nov 30, 2024 12:00 AM Laboratory - Chemi stry Order PROTHROMBIN TIME/INR PLASMA STAT SP [facility] Lab Results: +/- 30 days of [...] Type Comment Dec 09, 2024 08:34 AM [facility] PROTHROMBIN TIME/INR PLASMA Specimen Type: PLASMA No comment entered. Ordering Provider: STEPHEN FRANCOIS Report Released Date/Time: Dec 06, 2024 09:29 AM Reporting Lab: [facility] [address] Performing Lab: [facility] [address] .INR 1.1 0.8-1.1 .PT 12.9 s H 9.4-12.5 Dec 09, 2024 08:34 AM [facility] CREATININE(INCLUDES EGFR) PLASMA Sp ecimen Type: PLASMA No comment entered. Ordering Provider: STEPHEN FRANCOIS Report Released Date/Time: Dec 06, 2024 09:29 AM Reporting Lab: [facility] [address] Performing Lab: [facility] [address] CREATININE 0.6 mg/dL 0.5-1.0 .CREAT EGFR(CKD-EPI) >90 >60 Dec 09, 2024 08:34 AM [facility] CBC & DIFF BLOOD Specimen Type : BLOOD Comment: Automated Differential Performed Ordering Provider: STEPHEN FRANCOIS Report Released Date/Time: Dec 06, 2024 09:29 AM Reporting Lab: [facility] [address] Performing Lab: [facility] [address] WBC 4.4 4.0-11.0 RBC 4.42 4.00-5.40 HGB [...] 0.0 0.0-0.1 Nov 22, 2024 09:45 AM [facility] URIC ACID PLASMA Specimen Type: PLASMA No comment entered. Ordering Provider: KURT NEWELL Report Released Date/Time: Apr 26, 2024 10:33 AM Reporting Lab: [facility] [address] Performing Lab: [facility] [address] URIC ACID 5.4 mg/dL 2.5-6.2 Nov 22, 2024 09:45 AM [facility] LD,TOTAL PLASMA Specimen Type: PLASMA No comment entered. Ordering Provider: KURT NEWELL Report Released Date/Time: Apr 26, 2024 10:33 AM Reporting Lab: [facility] [address] Performing Lab: [facility] [address] LD,TOTAL 194 U/L 125-220 Nov 22, 2024 09:45 AM [facility] COMPREHENSIVE METABOLIC PANEL+MG PLASMA Specimen Type: PLASMA No comment entered. Ordering Provider: KURT NEWELL Report Released Date/Time: Apr 26, 2024 10:33 AM Reporting Lab: [facility] [address] Performing Lab: [facility] [address] CREATININE 0.6 mg/dL 0.5-1.0 UREA NITROGEN 12 [...] >90 >60 Nov 22, 2024 09:44 AM [facility] CBC & DIFF BLOOD Specimen Type: BLOOD Comment: Automated Differential Performed Ordering Provider: KURT NEWELL Report Released Date/Time: Oct 25, 2024 10:32 AM Reporting Lab: [facility] [address] Performing Lab: [facility] [address] WBC 5.4 4.0-11.0 RBC 4.58 4.00-5.40 HGB [...] 0.0 0.0-0.1 Nov 15, 2024 12:58 PM [facility] FINGERSTICK GLUCOSE BLOOD Specimen Type: BLOOD Comment: Save Result Ordering Provider: CINDY ZAMORANO Report Released Date/Time: Nov 17, 2024 07:56 AM Reporting Lab: [facility] [address] Performing Lab: [facility] [address] FINGERSTICK GLUCOSE 87 mg/dL 70-100 Radiology Reports: +/- 30 days of the [...] 2024 07:03 AM MRI-BRAIN (P): AWAIS PADILLA [id number] -1990 F Exm Date: DEC 16, 2024@07:03 Req Phys: STEPHEN FRANCOIS Pat Loc: [facility]OS[facility] APPRENTICE PAINTER NECKTIES CONSULT-A (Re Img Loc: MRI IMAGING Service: Unknown Screen: [place] [address] (Case [id number] COMPLETE) MRI BRAIN/BRAINSTEM W/O CONTRAST (MRI Detailed) CPT:58767 Reason for Study: Myelopathy Clinical History: Did the ordering provider speak with a peoplesoft hcm consultant regarding this imaging exam?No Brain MRI without contrast Myelopathy LAST CREATININE 0.6 (11/22/24) Allergies: METOPROLOL (Jan 14, 2023) REGLAN (Jan 14, 2023) My pager number on record is: [phone]. The pager number/cell phone number above is [...] 16, 2024 Date Verified: DEC 16, 2024 Medical I D Sales E-Sig:/ES/SUJIT DENIS MD Report: MRI BRAIN/BRAINSTEM W/O [...] Primary Interpreting Staff: SUJIT DENIS MD, RADIOLOGIST (Medical I D Sales) /[facility] SUJIT DENIS [facility] Dec 09, 2024 09:[address] MYELOGRAM THORA CIC (P): AWAIS PADILLA [id number] -1990 F Exm Date: DEC 09, 2024@09:52 Req Phys: STEPHEN FRANCOIS Pat Loc: [facility] NEUROSURG APPRENTICE PAINTER NECKTIES CONSULT-A (Re Img Loc: CT IMAGING Service: Unknown Screen: [place] [address] (Case [id number] COMPLETE) CT MYELOGRAM THORACIC SPINE (CT Detailed) CPT:90540 CPT Modifiers : 59 DISTINCT PROCEDURAL SERVICE [...] PLASMA .CREAT EGFR(CKD-E >90 Ref: >=60 Allergies: ([place] only) METOPROLOL (Jan 14, 2023) REGLAN (Jan 14, 2023) Defer to radiologist for final CT protocol. User Placing Order: STEPHEN FRANCOIS - Office Phone: My pager number on record is: [phone]. The pager number/cell phone number above is NOT correct for reporting critical results, I have entered my correct number below: My correct contact # for critial results is:neurosurgery denture contour wire specialist Trainees only: Enter your staff provider's info here: Per Joint Commission Standards, by signing this diagnostic imaging request the ordering provider confirms they have considered patients age and recent imaging history. Report Status: Verified Date Reported: DEC 09, 2024 Date Verified: DEC 09, 2024 Medical I D Sales E-Sig:/ES/CARITO POLANCO MD Report: CT Thoracic Spine [...] Primary Interpreting Staff: CARITO POLANCO MD, RADIOLOGIST (Medical I D Sales) /CARITO TOLENTINO [facility] Dec 09, 2024 08:50 AM MYELOGRAM THORACIC (P): VALERIEAWAIS SALVADOR [id number] -1990 F Exm Date: DEC 09, 2024@08:50 Req Phys: STEPHEN FRANCOIS Loc: [facility] NEUROSURG APPRENTICE PAINTER NECKTIES CONSULT-A (Re Img Loc: MAIN X-RAY Service: Unknown Screen: [place] [address] (Case [id number] COMPLETE) MYELOGRAM THORACIC VIA LUMBAR INJ(RAD Detailed) CPT:00060 Reason for Study: Eval for arachnoid web or cyst at T6 level Clinical History: myelopathy Outside hosptial Thoracic mri w wo contrast is loaded into [facility]. Please do comparison . thank you Responsible provider name and phone number to notify for critical findings if other than user placing the order and pager listed below: User placing orders pager: [phone] Neurosurgery denture contour wire specialist LAST CREATININE 0.6 (11/22/24) Report Status: Verified Date Reported: DEC 09, 2024 Date Verified: DEC 09, 2024 Medical I D Sales E-Sig:/ES/CARITO POLANCO MD Report: PROCEDURE: Lumbar puncture with fluoroscopic guidance. Thoracic myelogram. History: Myelopathy. Thoracic MRI shows dorsal lesion at T6. Comparison: Outside recent thoracic MRI exam from the [facility]. Fluoro time: 0.8 minute Dose: Air Kerma: 3.9, mGy, DAP: 3.54, dGy.cm? PROCEDURE: The patient/medical decision-maker understood the limitations, alternatives, and risks of the procedure and requested the procedure be performed. Both iMed and oral consent were obtained. A pre-procedural Time-Out was performed per [facility] policy. The patient was prepped and draped [...] Primary Interpreting Staff: CARITO POLANCO MD, RADIOLOGIST (Medical I D Sales) /CARITO TOLENTINO [facility] Nov 22, 2024 07:12 PM NON [place] MRI THORACI C SPINE: AWAIS PADILLA [id number] -1990 F Exm Date: NOV 22, 2024@19:12 Req Phys: CINDY ZAMORANO Loc: [facility] XRAY GENERAL AM (Req'g Loc Img Loc: OUTSOURCE MRI Service: Unknown Screen: Patient answered no (Case [id number] COMPLETE) NON [place] MRI THORACIC SPINE (MRI Detailed) CPT:51486 Reason for Study: OUTSIDE STUDY Clinical History: OUTSIDE STUDY Report Status: Electronically Filed Date Reported: NOV 30, 2024 Report: This is an outside Imaging study and/or report imported for continuity of patient care. This Imaging study and/or report was not reviewed or verified by a [place] Radiologist. Impression: This is an outside Imaging study and/or report imported for continuity of patient care. This Imaging study and/or report was not reviewed or verified by a [place] Radiologist. Primary Diagnostic Code: VERIFIED BY: / *ELECTRONICALLY FILED* [facility] Nov 15, 2024 12:[address] BODY W/O CO NTRAST (P): AWAIS PADILLA [id number] -1990 F Exm Date: NOV 15, 2024@12:39 Req Phys: KURT NEWELL Loc: [facility] ONC SCARIA (Req'g Loc) Img Loc: NUC MED Service: Unknown Screen: [place] [address] (Case [id number] COMPLETE) SKULL-THIGH PET IMAGE W/CT (NM Detailed) CPT:14344 Reason for Study: Evaluation for malignacy (Case [...] pager listed below: User placing orders pager: [phone] LAST CREATININE 0.6 (07/24/24) Report Status: Verified Date Reported: NOV 15, 2024 Date Verified: NOV 15, 2024 Medical I D Sales E-Sig:/LOS/CAIN SMART MD Report: PET/CT SCAN INDICATION: Evaluation [...] Staff: CAIN SMART MD, RADIOLOGY STAFF PHYSICIAN (Medical I D Sales) /CAIN CR [facility] Nov 10, 2024 10:23 AM NON [place] MRI THORACI C SPINE: AWAIS PADILLA [id number] 1990 F Exm Date: NOV 10, 2024@10:23 Req Phys: CINDY ZAMORANO Loc: [facility] XRAY GENERAL AM (Req'g Loc Img Loc: OUTSOURCE MRI Service: Unknown Screen: Patient answered no (Case 192 COMPLETE) NON [place] MRI THORACIC SPINE (MRI Detailed) CPT:51250 Reason for Study: OUTSIDE STUDY Clinical History: OUTSIDE STUDY Report Status: Electronically Filed Date Reported: NOV 30, 2024 Report: This is an outside Imaging study and/or report imported for continuity of patient care. This Imaging study and/or report was not reviewed or verified by a [place] Radiologist. Impression: This is an outside Imaging study and/or report imported for continuity of patient care. This Imaging study and/or report was not reviewed or verified by a [place] Radiologist. Primary Diagnostic Code: VERIFIED BY: / *ELECTRONICALLY FILED* [facility] Nov 10, 2024 10:03 AM NON [place] MRI CERVICA L SPINE: AWAIS PADILLA [id number] -1990 F Exm Date: NOV 10, 2024@10:03 Req Phys: CINDY ZAMORANO Loc: [facility] XRAY GENERAL AM (Req'g Loc Img Loc: OUTSOURCE MRI Service: Unknown Screen: Patient answered no (Case [id number] COMPLETE) NON [place] MRI CERVICAL SPINE (MRI Detailed) CPT:02054 Reason for Study: OUTSIDE STUDY Clinical History: OUTSIDE STUDY Report Status: Electronically Filed Date Reported: NOV 30, 2024 Report: This is an outside Imaging study and/or report imported for continuity of patient care. This Imaging study and/or report was not reviewed or verified by a [place] Radiologist. Impression: This is an outside Imaging study and/or report imported for continuity of patient care. This Imaging study and/or report was not reviewed or verified by a [place] Radiologist. Primary Diagnostic Code: VERIFIED BY: / *ELECTRONICALLY FILED* [facility] Nov 10, 2024 09:46 AM NON [place] MRI LUMBAR SPINE: AWAIS PADILLA [id number] -1990 F Exm Date: NOV 10, 2024@09:46 Req Phys: CINDY ZAMORANO Evelyn Loc: [facility] XRAY GENERAL AM (Req'g Loc Img Loc: OUTSOURCE MRI Service: Unknown Screen: Patient answered no (Case [id number] COMPLETE) NON [place] MRI LUMBAR SPINE (MRI Detailed) CPT:58909 Reason for Study: OUTSIDE STUDY Clinical History: OUTSIDE STUDY Report Status: Electronically Filed Date Reported: NOV 30, 2024 Report: This is an outside Imaging study and/or report imported for continuity of patient care. This Imaging study and/or report was not reviewed or verified by a [place] Radiologist. Impression: This is an outside Imaging study and/or report imported for continuity of patient care. This Imaging study and/or report was not reviewed or verified by a [place] Radiologist. Primary Diagnostic Code: VERIFIED BY: / *ELECTRONICALLY FILED* [facility] Encounter Notes: All associated encounter notes This section contains the clinical notes associated to the Encounter. Date/Time Encounter Note(s) Provider Source Nov 25, 2024 08:55 AM ARCHITECT NAVAL NOTE: LOCAL TITLE: ARCHITECT NAVAL NOTE STANDARD TITLE: ARCHITECT NAVAL NOTE DATE OF NOTE: NOV 25, 2024@08:55 ENTRY DATE: NOV 25, 2024@08:55:59 AUTHOR: PHILLIP HATCH COSIGNER: URGENCY: STATUS: COMPLETED Eye Start Exam Patient: AWAIS PADILLA Sex: FEMALE SSN: [id number] Birthdate: [birth year] Chief complaint: Binocular vision follow up, patient states she feels her eyes are getting worse in general. She feels her vision goes in and out often. History of Present Illness: Location: Intensity: Duration: BVPE Active Problems List: Active problems - Computerized Problem List is the source for the followin. Exposure to potentially hazardous substance 2. Traumatic brain injury 3. Temporomandibular joint disorder 4. Unintentional weight loss 5. Mood disorder 6. Headache 7. Family history: Myocardial infarction at less than 60 - Maternal grandfather of [place] at 50 8. History of cerebrospinal fluid leak - History of CSF leak after epidural during labor; improved without intervention 9. History of gestational diabetes mellitus - First 10. Generalized enlarged lymph nodes 11. Splenomegaly Surgeries: SURGERIES - NONE FOUND Follow Up Exam Eye Medications AT PRN OU Allergies: METOPROLOL (Jan 14, 2023) REGLAN (Jan 14, 2023) No new Allergies. Last refraction: Vision: OD:CC OD: 20/20 Vision: OS:CC 0S: 20/20 Current glasses: OD: -3.50 -0.75 X170 Prism:1.5 OJ OS: -3.75 sph Prism:2.0 OJ Add: N/A Confrontational Avalos: Full to finger counting: Right: Yes Left: Yes Extra Ocular Movement: Normal Pupils: Right: Round Left: Round Size: Right: 5 Left: 5 React to light: Right: Yes Left: Yes Afferent pupil defect: Right:No Grade: Left: No Grade: Stereo Circles: 40 seconds Intra-ocular pressure (IOP): OD: 16 OS: 16 iCare /los/ [facility] [employer]QU[employer] M[employer] OPERATOR Signed: 11/25/2024 09:51 PHILLIP HATCH [facility] Nov 25, 2024 06:48 AM OPTOMETRY NOTE: LOCAL TITLE: OPTOMETRY CLINIC NOTE STANDARD TITLE: OPTOMETRY NOTE DATE OF NOTE: NOV 25, 2024@06:48 ENTRY DATE: NOV 25, 2024@06:48:57 AUTHOR: EUGENIA SCHWARTZ COSIGNER: URGENCY: STATUS: COMPLETED Alert & oriented X 3 Appropriate PPE was worn by the patient and provider for the duration of the encounter. CC: Here for BV f/u. Patient states she feels her eyes are getting worse in general. She feels her vision goes in and out often, will get a headache after this occurs. Has not completed any vision therapy since last visit. 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 She also notes some difficulty with depth perception. She denies any difficulty with double vision. She does have glasses and contacts. She reports she was seen by someone for an eye evaluation and they told her that there was a spot in the back of her eye and she needed to see an chef. She reports this has not occurred. Last OT: 01/29/2024 (session #2) Nature of head injury: mTBI Area of cerebral cortex effected, if specified: not specified Loss of conciousness? yes Duration? few seconds Neuroimaging date/Results: CT SCAN BRAIN 08/09/2011 [facility]: FINDINGS: There is normal density, size [...] CT scan of the head without contrast. CT Head/Brain 11/12/2023 Impression: 1. Head CT within normal limits. Observation of physical status and alignment: seated upright in chair, no postural shift Entering VAcc OD: 20 OS: External Exam: Within Normal Limits PERRL (-)APD EOM: SFROM OU CVF: FTFC OD, OS OCULAR ALIGNMENT (cover test): Primary Gaze: Distance: ortho Near: 4 EP' Willis José Miguel: Horizontal: drifting eso then exo then back Vertical: ortho Pursuits (graded according to [employer] standards): Ability: 5 Accuracy: 3 (OS slower than left, brought on diplopia) Head/Body Mvmt: 5 Saccades (graded according to [employer] standards): Ability: 5 Accuracy: 4 (undershoots, slow) Head/Body Mvmt: 5 Near point of convergence x 3 #1: TTN #2: TTN #3: TTN Near Vergences (Prism Bar) BI: 16/25/20 OJ: x/35/18 Distance Vergences (Prism Bar) BI: x/2/1 OJ: x/4/2 SLEx (OU unless otherwise noted): Lids/Lashes: Clear Conj: White and quiet Cornea: oily TF A/C: Deep and quiet Iris: No tears Anterior Vitreous: Syneresis Lens: clear IOP (iCare per tech): A/P 1. Traumatic brain injury -Binocular vision: small esophoria at near, likely decompensates when fatigued causing symptoms. significant improvement in binocular vision skills with OJ prism, will continue -Oculomotor: deficient pursuits>saccades -recommend re-starting vision therapy for oculomotor dysfunction, in agreement, consult placed -(+)Photophobia: doing well with glareware -Visual field results: FTFC via CVF -RTC polytrauma 4-6 months VTD + BV check 2. Myopia/Astigmatism OU -continue current SRx with prism 3. Esophoria -see #1 4. Oculomotor dysfunction -see #1 5. JOHN PAUL OU -continue ATs prn OU. monitor Total encounter time (chart review, examination and documentation): 30 minutes /los/ EUGENIA SCHWARTZ OD STAFF BOX OFFICE CLERK Signed: 11/25/2024 10:24 EUGENIA SCHWARTZ [facility]
--- OUTSIDE RECORDS SUMMARY | 2024-11-26 04:29 | XMS_ITS | Encounter Summary ---
Author Name [facility] [place] [facility] [place] Address [address] [place] [id number] Care Team Providers Care Supervisor Bit And Shank Department Name Role Phone LONA MARÍA Primary Care Provider Unavail able Selected Encounter This section includes the information on record at [place] for the Encounter. Date/Time Encounter Type Encounter Description Reason Provider Source Nov 26, 2024 09:29 AM EMERGENCY DEPT VISIT [facility] EMERGENCY DEPT ICD-10-CM R53.1 Weakness TORRES HEDRICK [facility] Encounter Template Text not used by [place] Assessments - Encounter Diagnoses This section includes the primary and secondary diagnoses documented for the Encounter. Date/Time Primary/Secondary Diagnosis Diagnosis Name Provider Source Nov 26, 2024 03:41 PM PRIMARY Weakness TORRES HEDRICK [facility] Nov 26, 2024 03:41 PM SECONDARY Dorsalgia, unspecified TORRES HEDRICK [facility] Plan of Treatment: Future Appointments (+ [...] 20 appointments. The data comes from all [facility]. Appointment Date/Time Appointment Type Appointme nt Facility Name Nov 30, 2024 11:00 AM AMBULATORY - SURGERY [facility] Dec 02, 2024 08:00 AM AMBULATORY - REHAB MEDICIN [facility] Dec 09, 2024 08:30 AM AM[facility]ORY - NONE [place] [facility] Dec 09, 2024 09:30 AM AM[facility]ORY - NONE [place] [facility] Dec 09, 2024 10:30 AM AM[facility]ULATORY - NONE [place] [facility] Dec 09, 2024 10:45 AM AMBULATORY - SURGERY [facility] Dec 13, 2024 01:00 PM AMBULATORY - REHAB MEDICIN E [facility] Dec 16, 2024 07:00 AM [facility] Dec 21, 2024 10:00 AM AMBULATORY - REHAB MEDICIN E [facility] Dec 22, 2024 11:00 AM AMBULATORY - SURGERY [facility] Dec 23, 2024 08:00 AM AMBULATORY - REHAB MEDICIN E [facility] Dec 28, 2024 01:00 PM AMBULATORY - REHAB MEDICIN E [facility] Dec 29, 2024 10:00 AM AMBULATORY - REHAB [facility]ICIN [facility] Jan 02, 2025 08:30 AM AMBULATORY - REHAB [facility]IN [facility] Jan 05, 2025 01:58 PM AMBULATORY - MEDICINE [facility] Jan 06, 2025 03:00 PM AMBULATORY - REHAB MEDICIN E [facility] Jan 10, 2025 09:00 AM AMBULATORY - REHAB MEDICIN E [facility] Jan 12, 2025 02:20 PM AM[facility]ULATORY - NONE [facility] Jan 16, 2025 10:00 AM AMBULATORY - REHAB MEDICIN E [facility] Jan 18, 2025 09:00 AM AMBULATORY - REHAB MEDICIN E [facility] Active, Pending, and Scheduled Orders This section includes a listing of several types of active, pending, and scheduled orders, including clinic medications orders, diagnostic test orders, procedure orders and consult orders; where the start date of the order is 45 days before the date of the Encounter or 45 days after the date of the Encounter. The data comes from all [facility]. Test Date/Time Test Type Test Details Facility Name Oct 25, 2024 12:00 AM Laboratory - Chemi stry Order CBC & DIFF BLOOD ONCO SP ONCE [facility] Nov 30, 2024 12:00 AM Laboratory - Chemi stry Order CBC BLOOD STAT SP ONCE [facility] Nov 30, 2024 12:00 AM Laboratory - Chemi stry Order CREATININE(INCLUDES EGFR) PLASMA STAT SP ONCE [facility] Nov 30, 2024 12:00 AM Laboratory - Chemi stry Order PROTHROMBIN TIME/INR PLASMA STAT SP [facility] Lab Results: +/- 30 days of [...] Type Comment Dec 09, 2024 08:34 AM [facility] PROTHROMBIN TIME/INR PLASMA Specimen Type: PLASMA No comment entered. Ordering Provider: STEPHEN FRANCOIS Report Released Date/Time: Dec 06, 2024 09:29 AM Reporting Lab: [facility] [id number] Performing Lab: [facility] [id number] .INR 1.1 0.8-1.1 .PT 12.9 s H 9.4-12.5 Dec 09, 2024 08:34 AM [facility] CREATININE(INCLUDES EGFR) PLASMA Sp ecimen Type: PLASMA No comment entered. Ordering Provider: STEPHEN FRANCOIS Report Released Date/Time: Dec 06, 2024 09:29 AM Reporting Lab: [facility] [id number] Performing Lab: [facility] [id number] CREATININE 0.6 mg/dL 0.5-1.0 .CREAT EGFR(CKD-EPI) >90 >60 Dec 09, 2024 08:34 AM [facility] CBC & DIFF BLOOD Specimen Type : BLOOD Comment: Automated Differential Performed Ordering Provider: STEPHEN FRANCOIS Report Released Date/Time: Dec 06, 2024 09:29 AM Reporting Lab: [facility] [id number] Performing Lab: [facility] [id number] WBC 4.4 4.0-11.0 RBC 4.42 4.00-5.40 HGB [...] 0.0 0.0-0.1 Nov 22, 2024 09:45 AM [facility] URIC ACID PLASMA Specimen Type: PLASMA No comment entered. Ordering Provider: KURT NEWELL Report Released Date/Time: Apr 26, 2024 10:33 AM Reporting Lab: [facility] [id number] Performing Lab: [facility] [id number] URIC ACID 5.4 mg/dL 2.5-6.2 Nov 22, 2024 09:45 AM [facility] LD,TOTAL PLASMA Specimen Type: PLASMA No comment entered. Ordering Provider: KURT NEWELL Report Released Date/Time: Apr 26, 2024 10:33 AM Reporting Lab: [facility] [id number] Performing Lab: [facility] [id number] LD,TOTAL 194 U/L 125-220 Nov 22, 2024 09:45 AM [facility] COMPREHENSIVE METABOLIC PANEL+MG PLASMA Specimen Type: PLASMA No comment entered. Ordering Provider: KURT NEWELL Report Released Date/Time: Apr 26, 2024 10:33 AM Reporting Lab: [facility] [id number] Performing Lab: [facility] [id number] CREATININE 0.6 mg/dL 0.5-1.0 UREA NITROGEN 12 [...] >90 >60 Nov 22, 2024 09:44 AM [facility] CBC & DIFF BLOOD Specimen Type: BLOOD Comment: Automated Differential Performed Ordering Provider: KURT NEWELL Report Released Date/Time: Oct 25, 2024 10:32 AM Reporting Lab: [facility] [id number] Performing Lab: [facility] [phone] WBC 5.4 4.0-11.0 RBC 4.58 4.00-5.40 HGB [...] 0.0 0.0-0.1 Nov 15, 2024 12:58 PM [facility] FINGERSTICK GLUCOSE BLOOD Specimen Type: BLOOD Comment: Save Result Ordering Provider: MARÍA SEAY Report Released Date/Time: Nov 17, 2024 07:56 AM Reporting Lab: [facility] [phone] Performing Lab: [facility] [address] FINGERSTICK GLUCOSE 87 mg/dL 70-100 Vital Signs: All taken on the encounter date This section contains inpatient and outpatient Vital Signs collected on the date of the Encounter. Date/Time Temperature Pulse Blood Pressure Respiratory Rate SP02 Pain Height Weight Body Mass Index Source Nov 26, 2024 12:37 PM 74 146/88 16 74 [facility] Nov 26, 2024 09:38 AM 7 [facility] Nov 26, 2024 09:32 AM 73 136/91 16 98 7 [facility] Social History: Smoking Status (Most current) and Tobacco Use (All prior to encounter date) This section includes the most current, and the historical, smoking and tobacco- related health factors from the [facility] where the Encounter took place. Current Smoking Status This section includes the most current smoking, or tobacco-related health factor, from the [place] facility where the Encounter took place. Date/Time Current Smoking Status Comment Srini ity Nov 27, 2023 03:30 PM [place]-TOBACCO QUIT 5 TO < 15 YRS [facility] Tobacco Use History This section includes a history of the smoking, or tobacco-related health factors, that were collected on or before the date of the Encounter. The data comes from the [place] facility where the Encounter took place. Date/Time Smoking Status/Tobacco Use Comment F acility Nov 27, 2023 03:30 PM [place]-TOBACCO QUIT 5 TO < 15 YRS [facility] Jan 14, 2023 09:03 AM [place]-TOBACCO FORMER USER [facility] Jan 14, 2023 09:03 AM [place]-TOBACCO QUIT 5 TO < 15 YRS [facility] Radiology Reports: +/- 30 days of [...] 2024 07:03 AM MRI-BRAIN (P): AWAIS PADILLA [id number] -1990 F Exm Date: DEC 16, 2024@07:03 Req Phys: STEPHEN FRANCOIS Loc: [facility] FORESTRY AID CONSULT-A (Re Img Loc: MRI IMAGING Service: Unknown Screen: [place] [address] (Case [id number] COMPLETE) MRI BRAIN/BRAINSTEM W/O CONTRAST (MRI Detailed) CPT:92664 Reason for Study: Myelopathy Clinical History: Did the ordering provider speak with a mental hygiene consultant regarding this imaging exam?No Brain MRI without contrast Myelopathy LAST CREATININE 0.6 (11/22/24) Allergies: METOPROLOL (Jan 14, 2023) REGLAN (Jan 14, 2023) My pager number on record is: [phone]. The pager number/cell phone number above is [...] 16, 2024 Date Verified: DEC 16, 2024 Torch Solderer E-Sig:/ES/SUJIT DENIS MD Report: MRI BRAIN/BRAINSTEM W/O [...] Primary Interpreting Staff: SUJIT DENIS MD, RADIOLOGIST (Torch Solderer) /[facility] SUJIT DENIS [facility] Dec 09, 2024 09:[address] MYELOGRAM THORA CIC (P): AWAIS PADILLA [id number] -1990 F Exm Date: DEC 09, 2024@09:52 Req Phys: STEPHEN FRANCOIS Loc: [facility] NEUR[facility]G FORESTRY AID CONSULT-A (Re Img Loc: CT IMAGING Service: Unknown Screen: [place] [address] (Case [id number] COMPLETE) CT MYELOGRAM THORACIC SPINE (CT Detailed) CPT:84535 CPT Modifiers : 59 DISTINCT PROCEDURAL SERVICE [...] PLASMA .CREAT EGFR(CKD-E >90 Ref: >=60 Allergies: ([place] only) METOPROLOL (Jan 14, 2023) REGLAN (Jan 14, 2023) Defer to radiologist for final CT protocol. User Placing Order: STEPHEN FRANCOIS - Office Phone: My pager number on record is: [phone]. The pager number/cell phone number above is NOT correct for reporting critical results, I have entered my correct number below: My correct contact # for critial results is:neurosurgery chronic specialist Trainees only: Enter your staff provider's info here: Per Joint Commission Standards, by signing this diagnostic imaging request the ordering provider confirms they have considered patients age and recent imaging history. Report Status: Verified Date Reported: DEC 09, 2024 Date Verified: DEC 09, 2024 Torch Solderer E-Sig:/ES/CARITO POLANCO MD Report: CT Thoracic Spine [...] Primary Interpreting Staff: CARITO POLANCO MD, RADIOLOGIST (Torch Solderer) /[facility] Dec 09, 2024 08:50 AM MYELOGRAM THORACIC (P): AWAIS PADILLA [id number] -1990 F Exm Date: DEC 09, 2024@08:50 Req Phys: STEPHEN FRANCOIS Loc: [facility] FORESTRY AID CONSULT-A (Re Img Loc: MAIN X-RAY Service: Unknown Screen: [place] [address] (Case [id number] COMPLETE) MYELOGRAM THORACIC VIA LUMBAR INJ(RAD Detailed) CPT:14021 Reason for Study: Eval for arachnoid web or cyst at T6 level Clinical History: myelopathy Outside hosptial Thoracic mri w wo contrast is loaded into [facility]. Please do comparison . thank you Responsible provider name and phone number to notify for critical findings if other than user placing the order and pager listed below: User placing orders pager: [phone] Neurosurgery chronic specialist LAST CREATININE 0.6 (11/22/24) Report Status: Verified Date Reported: DEC 09, 2024 Date Verified: DEC 09, 2024 Torch Solderer E-Sig:/ES/CARITO POLANCO MD Report: PROCEDURE: Lumbar puncture with fluoroscopic guidance. Thoracic myelogram. History: Myelopathy. Thoracic MRI shows dorsal lesion at T6. Comparison: Outside recent thoracic MRI exam from the [facility]. Fluoro time: 0.8 minute Dose: Air Kerma: 3.9, mGy, DAP: 3.54, dGy.cm? PROCEDURE: The patient/medical decision-maker understood the limitations, alternatives, and risks of the procedure and requested the procedure be performed. Both iMed and oral consent were obtained. A pre-procedural Time-Out was performed per [facility] policy. The patient was prepped and draped [...] Primary Interpreting Staff: CARITO POLANCO MD, RADIOLOGIST (Torch Solderer) /[facility] Nov 22, 2024 07:12 PM NON [place] THORACI C SPINE: AWAIS PADILLA [id number] -1990 F Exm Date: NOV 22, 2024@19:12 Req Phys: MARÍA SEAY Loc: [facility] XRAY GENERAL AM (Req'g Loc Img Loc: OUTSOURCE MRI Service: Unknown Screen: Patient answered no (Case [id number] COMPLETE) NON [place] MRI THORACIC SPINE (MRI Detailed) CPT:17758 Reason for Study: OUTSIDE STUDY Clinical History: OUTSIDE STUDY Report Status: Electronically Filed Date Reported: NOV 30, 2024 Report: This is an outside Imaging study and/or report imported for continuity of patient care. This Imaging study and/or report was not reviewed or verified by a [place] Radiologist. Impression: This is an outside Imaging study and/or report imported for continuity of patient care. This Imaging study and/or report was not reviewed or verified by a [place] Radiologist. Primary Diagnostic Code: VERIFIED BY: / *ELECTRONICALLY FILED* [facility] Nov 15, 2024 12:[address] BODY W/O CO NTRAST (P): AWAIS PADILLA [id number] -1990 F Exm Date: NOV 15, 2024@12:39 Req Phys: KURT NEWELL Pat Loc: [facility] ONC OSIRIS (Req'g Loc) Img Loc: NUC MED Service: Unknown Screen: [place] [address] (Case [id number] COMPLETE) SKULL-THIGH PET IMAGE W/CT (NM Detailed) CPT:45052 Reason for Study: Evaluation for malignacy (Case [...] pager listed below: User placing orders pager: [phone] LAST CREATININE 0.6 (07/24/24) Report Status: Verified Date Reported: NOV 15, 2024 Date Verified: NOV 15, 2024 Torch Solderer E-Sig:/ES/CAIN SMART MD Report: PET/CT SCAN INDICATION: [...] Staff: CAIN SMART MD, RADIOLOGY STAFF PHYSICIAN (Torch Solderer) /[facility] Nov 10, 2024 10:23 AM NON [place] THORACI C SPINE: AWAIS PADILLA [id number] -1990 F Exm Date: NOV 10, 2024@10:23 Req Phys: MARÍA SEAY Pat Loc: [facility] XRAY GENERAL AM (Req'g Loc Img Loc: OUTSOURCE MRI Service: Unknown Screen: Patient answered no (Case [id number] COMPLETE) NON [place] THORACIC SPINE (MRI Detailed) CPT:29445 Reason for Study: OUTSIDE STUDY Clinical History: OUTSIDE STUDY Report Status: Electronically Filed Date Reported: NOV 30, 2024 Report: This is an outside Imaging study and/or report imported for continuity of patient care. This Imaging study and/or report was not reviewed or verified by a [place] Radiologist. Impression: This is an outside Imaging study and/or report imported for continuity of patient care. This Imaging study and/or report was not reviewed or verified by a [place] Radiologist. Primary Diagnostic Code: VERIFIED BY: / *ELECTRONICALLY FILED* [facility] Nov 10, 2024 10:03 AM NON [place] MRI CERVICA L SPINE: AWAIS PADILLA [id number] -1990 F Exm Date: NOV 10, 2024@10:03 Req Phys: MARÍA SEAY Loc: [facility] XRAY GENERAL AM (Req'g Loc Img Loc: OUTSOURCE MRI Service: Unknown Screen: Patient answered no (Case [id number] COMPLETE) NON [place] MRI CERVICAL SPINE (MRI Detailed) CPT:53806 Reason for Study: OUTSIDE STUDY Clinical History: OUTSIDE STUDY Report Status: Electronically Filed Date Reported: NOV 30, 2024 Report: This is an outside Imaging study and/or report imported for continuity of patient care. This Imaging study and/or report was not reviewed or verified by a [place] Radiologist. Impression: This is an outside Imaging study and/or report imported for continuity of patient care. This Imaging study and/or report was not reviewed or verified by a [place] Radiologist. Primary Diagnostic Code: VERIFIED BY: / *ELECTRONICALLY FILED* [facility] Nov 10, 2024 09:46 AM NON [place] LUMBAR SPINE: AWAIS PADILLA [id number] -1990 F Exm Date: NOV 10, 2024@09:46 Req Phys: MARÍA SEAY Loc: [facility] XRAY GENERAL AM (Req'g Loc Img Loc: OUTSOURCE MRI Service: Unknown Screen: Patient answered no (Case [id number] COMPLETE) NON [place] MRI LUMBAR SPINE (MRI Detailed) CPT:63332 Reason for Study: OUTSIDE STUDY Clinical History: OUTSIDE STUDY Report Status: Electronically Filed Date Reported: NOV 30, 2024 Report: This is an outside Imaging study and/or report imported for continuity of patient care. This Imaging study and/or report was not reviewed or verified by a [place] Radiologist. Impression: This is an outside Imaging study and/or report imported for continuity of patient care. This Imaging study and/or report was not reviewed or verified by a [place] Radiologist. Primary Diagnostic Code: VERIFIED BY: / *ELECTRONICALLY FILED* [facility] Encounter Notes: All associated encounter notes This section contains the clinical notes associated to the Encounter. Date/Time Encounter Note(s) Provider Source Nov 26, 2024 03:41 PM NURSING EMERGENCY DEPT NOTE: LOCAL TITLE: EMERGENCY DEPT NURSING NOTE STANDARD TITLE: NURSING EMERGENCY DEPT NOTE DATE OF NOTE: NOV 26, 2024@15:41 ENTRY DATE: NOV 26, 2024@15:41:30 AUTHOR: COLBY NIX EXP COSIGNER: URGENCY: STATUS: COMPLETED Emergency Department Discharge Education Personal Protective Equipment (PPE): Patient was in mask on arrival, Patient was in mask on arrival, patient remained masked for entire visit, RN used PPE during every encounter with the patient, MD/PA/FORESTRY AID used PPE during every encounter with the [...] TO LEARNING: No barriers identified Accompanied by: Family Mode of Transportation: Relative/friend EXIT ADDITIONAL EDUCATION GIVE: reviewed follow up with neurosurg and neuro- reviewed all dc Px. Reviewed follow up with PT and reasons to return to the ER Wristband Removal:Patient wristband was removed and destroyed by being placed in the shred bin. Discharged to: Home /los/ COLBY NIX RN REGISTERED NURSE Signed: 11/26/2024 15:42 COLBY NIX [facility] Nov 26, 2024 03:35 PM ACCOUNTING OF DISCLOSURES NOTE: LOCAL TITLE: STATE PRESCRIPTION DRUG MONITORING PROGRAM STANDARD TITLE: ACCOUNTING OF DISCLOSURES NOTE DATE OF NOTE: NOV 26, 2024@15:35:10 ENTRY DATE: NOV 26, 2024@15:35:10 AUTHOR: BRYAN HEDRICK EXP COSIGNER: URGENCY: STATUS: COMPLETED This PDMP query was submitted by Bryan Hedrick. The clinical justification for this PDMP query is to review controlled substances prescribed outside of the [place], and any additional information that may become available, as an important component of standard clinical care, and in accordance with [facility] policy. Patient information was shared with the PDMP [place]. Prescription(s) filled outside the [place] in the last 90 days are noted. However, they do not raise significant safety concerns and do not influence the treatment plan at this time. /los/ BRYAN HEDRICK MD EMERGENCY MEDICINE PHYSICIAN Signed: 11/26/2024 15:35 BRYAN HEDRICK [facility] Nov 26, 2024 03:34 PM EMERGENCY DEPT EDUCATION NOTE: LOCAL TITLE: EMERGENCY DEPT DISCHARGE INSTRUCTIONS STANDARD TITLE: EMERGENCY DEPT EDUCATION NOTE DATE OF NOTE: NOV 26, 2024@15:34:40 ENTRY DATE: NOV 26, 2024@15:34:40 AUTHOR: BRYAN HEDRICK EXP COSIGNER: URGENCY: STATUS: COMPLETED DISCHARGE INSTRUCTIONS [...] leave, you should follow the instructions below. Yes, is driving You were treated today by Bryan Hedrick, . Special Information This Information Is About Your Follow Up Care We have sent a consultation request to the Neurosurgery Clinic on your behalf. The Neurosurgery Clinic will call you to schedule this appointment. If you have not received a call in 2 business days please call , ask for the clinic to which you have been referred, request to schedule the appointment. You will need a follow-up appointment at the Neurology Clinic in 1 month. You can reach the Neurology Clinic at to make an appointment. If you are not feeling better and improving over the next few days, or if you have any questions please call your Primary Care Provider. To Request a Physical Therapy Appointment you may stop by [id number], Physical Medicine & Rehab or call , Select #1. No referral or consult/order is required. If you already have a [place]-Issued Mobility Device but need adjustments or repairs you can stop by BU-[id number], Prosthetics, [facility] ([address]ld[address] 70) Or call ext. 2000 Future Appointments 02/21/2025 at 10:00am [facility] TIME SENS BLOOD DRAW 02/21/2025 at 11:00am [facility]C SCARIA 04/28/2025 at 9:30am [facility] EYE POLYTRAUMA FEHLHAFER This Information Is About Your Illness and Diagnosis Weakness with Uncertain Cause Based on your exam today, the exact cause of your weakness is not clear. But your weakness does not seem to be a sign of a serious illness at this time. Keep an eye on your symptoms and get medical advice as instructed below. Home care -Rest at home today. Don't over-exert yourself. -Take any medicine as prescribed. -For thenext few days, drink extra fluids (unless your healthcare provider wants you to restrict fluids for other reasons). Don't skip meals. -Unless otherwise directed, continue to take any prescription medicines. -Contact your healthcare provider if you have any questions or concerns. Follow-up care Follow up with your healthcare provider, or as advised. When to seek medical advice Call your healthcare provider right awayfor any of the following: -Symptoms get worse -Symptoms don't start getting better within 2 days -Fever of 100.4 F (38 C) or higher, or as directed by your healthcare provider Call 911 Call 911 for any of these: -Chest, arm, neck, jaw, or upper back pain -Trouble breathing -Numbness or weakness of the face, one arm, or one leg -Slurred speech, confusion, ortrouble speaking, walking, or seeing -Blood in vomit or stool (black or red color) -Severe headache -Loss of consciousness Back Pain (Acute or Chronic) Back pain is one of the most common problems. The good news is that most people feel better in 1 to 2 weeks, and most of the rest in 1 to 2 months. Most people can remain active. People who have paindescribe it differently--noteveryone is the same. -The pain can be sharp, stabbing, shooting, aching, cramping or burning. -Movement, standing, bending, lifting, sitting, or walking may worsen pain. -It can be limited to one spot or area, or it can be more generalized. -It can spread upwards, to the front, or go down your arms or legs (sciatica). -It can cause muscle spasm. Most of the time, mechanical problems with the musclesor spine cause the pain. Mechanical problemsare usually caused by an injury to the muscles or ligaments. Illness can cause back pain, but it's usually not caused by a serious illness. Mechanical problems include: -Physical activity such as sports, exercise, work, or normal activity -Overexertion, lifting, pushing, pulling incorrectly or too aggressively -Sudden twisting, bending, or stretching from an accident, or accidental movement -Poor posture -Stretching or moving wrong, without noticing pain at the time -Poor coordination, lack of regular exercise (check with your doctor about this) -Spinal disc disease or arthritis -Stress Pain can also be related to , or illness such as appendicitis, bladder or kidney infections, kidney stones, and pelvic infections. Acute back pain usually gets better in1 to 2 weeks. Back pain related to disk disease, arthritis in the spinal joints, or narrowing of the spinal canal (spinal stenosis) can become chronic and last for months or years. Unless you had a physical injury such as a car accident or fall, X-rays are usually not needed for the first assessment of back pain. If pain continues and does not respond to medical treatment, you may need X-rays and other tests. Home care Try this home care advice: -When in bed, tryto find a position of comfort. A firm mattress is best. Try lying flat on your back with pillows under your knees. You can also try lying on your side with your knees bent up toward your chest and a pillow between your knees. -At first, don't try to stretch out the sore spots. If there is a strain, it's not like the good soreness you get after exercising without an injury. In this case, stretching may make it worse. -Don't sit for long periods, as in a long car ride or during othertravel. This puts more stress on the lower back than standing or walking. -During the first 24 to 72 hours after an acute injury or flare up of chronic back pain, apply an ice pack to the painful area for 20 minutes and then remove it for 20 minutes. Do this over a period of 60 to 90 minutes or several times a day. This will reduce swelling and pain. Wrap the ice pack in a thin towel or plastic to protect your skin. -You can start with ice, then switch to heat. Heat (hot shower, hot bath, or heating pad) reduces pain and works well for muscle spasms. Heat can be applied to the painful area for 20 minutes then remove it for 20 minutes. Do this over a period of 60 to 90 minutes or several times a day. Don't sleep on a heating pad. It can lead to skin olsen or tissue damage. -You can alternate ice and heat therapy. Talk with your doctor aboutthe best treatment for your back pain. -Therapeutic massage can help relax the back muscles without stretching them. -Be aware of safe lifting methods. Don't lift anything without stretching first. Medicines Talk to your doctor before using medicine, especially if you have other medical problems or are taking other medicines. -You may use [id number] medicine as directed on the bottle to control pain, unless another pain medicine was prescribed. Talk with your healthcare provider before using these medicines if you have chronic conditions such as diabetes, liver or kidney disease, stomach ulcers, or digestive

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
--- OUTSIDE RECORDS SUMMARY | 2024-11-30 06:00 | XMS_ITS | Encounter Summary ---
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 hamstring 5/5 ankle dorsi flexion 5/5 ankle plantar flexion 5/5 EHL REFLEXES: 3+ bilateral bicep 3+ bilateral tricep 2+ bilateral brachioradialis 3+ bilateral patellar 2+ bilateral ankle Downgoing toes bilateral, positive Eder's on the right, 2 beats of clonus on the right SENSORY: Decreased sensation bilaterally in hands to elbows, decreased sensation in feet to upper thighs GAIT/STATION: Spastic gait, spasm noted in upper extremity with exam /es/ STEPHEN FRANCOIS NP Signed: 11/30/2024 15:20 Receipt Acknowledged By: 11/30/2024 15:27 /es/ María Seay PA-C Physician [employer] Operator [facility]
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
--- OUTSIDE RECORDS SUMMARY | 2024-12-09 05:45 | XMS_ITS | Encounter Summary ---
Author Name [facility] Organization [facility] Address [address] [place] [address] Care Team Providers Care Urologist Md Name Role Phone LONA CINDY Primary Care Provider Unavail able Selected Encounter This section includes the information on record at [place] for the Encounter. Date/Time Encounter Type Encounter Description Reason Pro vider Source Dec 09, 2024 10:45 AM Outpatient Encounter SURGICAL PROCEDURE UNIT I[facility] Encounter Template Text not used by [place] Plan of Treatment: Future Appointments (+ 6 months) and Future Tests (+/- 45 days) The Plan of Treatment section includes future care activities for the patient from all [place] treatmentfacilities. This section includes future appointments and future orders which are active, pending or scheduled. Future Appointments This section includes appointments that were scheduled to occur 6 months from the date of the Encounter, up to a maximum of 20 appointments. The data comes from all [place] treatment facilities. Appointment Date/Time Appointment Type Appointme nt Facility Name Dec 13, 2024 01:00 PM AMBULATORY - REHAB MEDICIN [facility] Dec 16, 2024 07:00 AM AMBULATORY - NONE [facility] Dec 21, 2024 10:00 AM AMBULATORY - REHAB MEDICIN [facility] Dec 22, 2024 11:00 AM AMBULATORY - SURGERY [place] [facility] Dec 23, 2024 08:00 AM AMBULATORY - REHAB MEDICIN E [facility] Dec 28, 2024 01:00 PM AMBULATORY - REHAB MEDICIN E [facility] Dec 29, 2024 10:00 AM AMBULATORY - REHAB MEDICIN E [facility] Jan 02, 2025 08:30 AM AMBULATORY - REHAB MEDICIN E [facility] Jan 05, 2025 01:58 PM AMBULATORY [facility] Jan 06, 2025 03:00 PM AMBULATORY - REHAB MEDICIN E [facility] Jan 10, 2025 09:00 AM AMBULATORY - REHAB MEDICIN E [facility] Jan 12, 2025 02:20 [facility] Jan 16, 2025 10:00 AM AMBULATORY - REHAB MEDICIN [facility] Jan 18, 2025 09:00 AM AMBULATORY - REHAB MEDICIN [facility] Jan 23, 2025 09:00 AM AMBULATORY - REHAB MEDICIN [facility] Jan 25, 2025 09:00 AM AMBULATORY - REHAB MEDICIN E [facility] Feb 01, 2025 03:00 PM AMBULATORY - REHAB MEDICIN E [facility] February 21, 2025 09:00 AM [facility] February 21, 2025 10:00 AM AMBULATORY - MEDICINE [facility] February 23, 2025 01:[facility] Active, Pending, and Scheduled Orders This section includes a listing of several types of active, pending, and scheduled orders, including clinic medications orders, diagnostic test orders, procedure orders and consult orders; where the start date of the order is 45 days before the date of the Encounter or 45 days after the date of theEncounter. The data comes from all [facility]. Test Date/Time Test Type Test Details Facility Name Oct 25, 2024 12:00 AM Laboratory - Chemi stry Order CBC & DIFF BLOOD ONCO SP ONCE [facility] Nov 30, 2024 12:00 AM Laboratory - Chemi stry Order CBC BLOOD STAT SP ONCE [facility] Nov 30, 2024 12:00 AM Laboratory - Chemi stry Order CREATININE(INCLUDES EGFR) PLASMA STAT SP ONCE [facility] Nov 30, 2024 12:00 AM Laboratory - Chemi stry Order PROTHROMBIN TIME/INR PLASMA STAT SP [facility] Lab Results: +/- 30 days of the encounter This section includes the Chemistry and Hematology Lab Results on record with [place] for the patient. Radiology Reports and Pathology Reports are provided separately, in subsequent sections. Lab Results This section contains the Chemistry/Hematology Results that were resulted 30 days before or 30 daysafter the date of the Encounter. Date/Time Source Result Type Result - Unit Interpretation Reference Range Specimen Type Comment Dec 09, 2024 08:34 AM [facility] PROTHROMBIN TIME/INR PLASMA Specimen Type: PLASMA No comment entered. Ordering Provider: STEPHEN FRANCOIS Report Released Date/Time: Dec 06, 2024 09:29 AM Reporting Lab: [facility] [address] Performing Lab: [facility] [address] .INR 1.1 0.8-1.1 .PT 12.9 s H 9.4-12.5 Dec 09, 2024 08:34 AM [facility] CREATININE(INCLUDES EGFR) PLASMA Sp ecimen Type: PLASMA No comment entered. Ordering Provider: STEPHEN FRANCOIS Report Released Date/Time: Dec 06, 2024 09:29 AM Reporting Lab: [facility] [address] Performing Lab: [facility] [address] CREATININE 0.6 mg/dL 0.5-1.0 .CREAT EGFR(CKD-EPI) >90 >60 Dec 09, 2024 08:34 AM [facility] CBC & DIFF BLOOD Specimen Type : BLOOD Comment: Automated Differential Performed Ordering Provider: STEPHEN FRANCOIS Report Released Date/Time: Dec 06, 2024 09:29 AM Reporting Lab: [facility] [address] Performing Lab: [facility] [address] WBC 4.4 4.0-11.0 RBC 4.42 4.00-5.40 HGB [...] 0.0 0.0-0.1 Nov 22, 2024 09:45 AM [facility] URIC ACID PLASMA Specimen Type: PLASMA No comment entered. Ordering Provider: KURT NEWELL Report Released Date/Time: Apr 26, 2024 10:33 AM Reporting Lab: [facility] [address] Performing Lab: [facility] [address] URIC ACID 5.4 mg/dL 2.5-6.2 Nov 22, 2024 09:45 AM [facility] LD,TOTAL PLASMA Specimen Type: PLASMA No comment entered. Ordering Provider: KURT NEWELL Report Released Date/Time: Apr 26, 2024 10:33 AM Reporting Lab: [facility] [address] Performing Lab: [facility] [address] LD,TOTAL 194 U/L 125-220 Nov 22, 2024 09:45 AM [facility] COMPREHENSIVE METABOLIC PANEL+MG PLASMA Specimen Type: PLASMA No comment entered. Ordering Provider: KURT NEWELL Report Released Date/Time: Apr 26, 2024 10:33 AM Reporting Lab: [facility] [address] Performing Lab: [facility] [address] CREATININE 0.6 mg/dL 0.5-1.0 UREA NITROGEN 12 [...] >90 >60 Nov 22, 2024 09:44 AM [facility] CBC & DIFF BLOOD Specimen Type: BLOOD Comment: Automated Differential Performed Ordering Provider: KURT NEWELL Report Released Date/Time: Oct 25, 2024 10:32 AM Reporting Lab: [facility] [address] Performing Lab: [facility] [address] WBC 5.4 4.0-11.0 RBC 4.58 4.00-5.40 HGB [...] 0.0 0.0-0.1 Nov 15, 2024 12:58 PM [facility] FINGERSTICK GLUCOSE BLOOD Specimen Type: BLOOD Comment: Save Result Ordering Provider: CINDY ZAMORANO Report Released Date/Time: Nov 17, 2024 07:56 AM Reporting Lab: [facility] [address] Performing Lab: [facility] [address] FINGERSTICK GLUCOSE 87 mg/dL 70-100 Vital Signs: All taken on the encounter date This section contains inpatient and outpatient Vital Signs collected on the date of the Encounter. Date/Time Temperature Pulse Blood Pressure Respiratory Rate SP02 Pain Height Weight Body Mass Index Source Dec 09, 2024 10:52 AM 69 124/79 [facility] Dec 09, 2024 10:37 AM 72 113/73 [facility] Dec 09, 2024 10:22 AM 70 98 [facility] Dec 09, 2024 10:22 AM 98.5 66 117/80 98 [facility] Social History: Smoking Status (Most current) and Tobacco Use (All prior to encounter date) This section includes the most current, and the historical, smoking and tobacco- related health factors from the [facility] where the Encounter took place. Current Smoking Status This section includes the most current smoking, or tobacco-related health factor, from the [place] facility where the Encounter took place. Date/Time Current Smoking Status Comment Facil ity Nov 27, 2023 03:30 PM VA-TOBACCO FORMER USER [facility] Tobacco Use History This section includes a history of the smoking, or tobacco-related health factors, that were collected on or before the date of the Encounter. The data comes from the [place] facility where the Encounter took place. Date/Time Smoking Status/Tobacco Use Comment F acility Nov 27, 2023 03:30 PM VA-TOBACCO QUIT 5 TO < 15 YRS [facility] Jan 14, 2023 09:03 AM VA-TOBACCO FORMER USER [facility] Jan 14, 2023 09:03 AM MI-TOBACCO QUIT 5 TO < 15 YRS [facility] Radiology Reports: +/- 30 days of the [...] the Encounter. The data comes from all [place] treatment facilities. Date/Time Radiology Report Provider Source Dec 16, 2024 07:03 AM MRI-BRAIN (P): AWAIS PADILLA [id number] -1990 F Exm Date: DEC 16, 2024@07:03 Req Phys: STEPHEN FRANCOIS Pat Loc: [facility] NEUROSURG DIRECTOR OF SUSTAINABLE DESIGN CONSULT-A (Re Img Loc: MRI IMAGING Service: Unknown Screen: [place] [address] (Case [id number] COMPLETE) MRI BRAIN/BRAINSTEM W/O CONTRAST (MRI Detailed) CPT:55055 Reason for Study: Myelopathy Clinical History: Did the ordering provider speak with a neuropsychology medical consultant regarding this imaging exam?No Brain MRI without contrast Myelopathy LAST CREATININE 0.6 (11/22/24) Allergies: METOPROLOL (Jan 14, 2023) REGLAN (Jan 14, 2023) My pager number on record is: [phone]. The pager number/cell phone number above is [...] 16, 2024 Date Verified: DEC 16, 2024 Personal Lines Account Manager E-Sig:/ES/SUJIT DENIS MD Report: MRI BRAIN/BRAINSTEM W/O [...] Primary Interpreting Staff: SUJIT DENIS MD, RADIOLOGIST (Personal Lines Account Manager) /[facility] SUJIT DENIS [facility] Dec 09, 2024 09:[address] MYELOGRAM THORA CIC (P): AWAIS PADILLA [id number] -1990 F Exm Date: DEC 09, 2024@09:52 Req Phys: STEPHEN FRANCOIS Loc: [facility] NEUROSURG DIRECTOR OF SUSTAINABLE DESIGN CONSULT-A (Re Img Loc: CT IMAGING Service: Unknown Screen: [place] [address] (Case [id number] COMPLETE) CT MYELOGRAM THORACIC SPINE (CT Detailed) CPT:42157 CPT Modifiers : 59 DISTINCT PROCEDURAL SERVICE [...] PLASMA .CREAT EGFR(CKD-E >90 Ref: >=60 Allergies: ([place] only) METOPROLOL (Jan 14, 2023) REGLAN (Jan 14, 2023) Defer to radiologist for final CT protocol. User Placing Order: STEPHEN FRANCOIS - Office Phone: My pager number on record is: [phone]. The pager number/cell phone number above is NOT correct for reporting critical results, I have entered my correct number below: My correct contact # for critial results is:neurosurgery electronic device repairer Trainees only: Enter your staff provider's info here: Per Joint Commission Standards, by signing this diagnostic imaging request the ordering provider confirms they have considered patients age and recent imaging history. Report Status: Verified Date Reported: DEC 09, 2024 Date Verified: DEC 09, 2024 Personal Lines Account Manager E-Sig:/ES/CARITO POLANCO MD Report: CT Thoracic Spine [...] Primary Interpreting Staff: CARITO POLANCO MD, RADIOLOGIST (Personal Lines Account Manager) /[facility] Dec 09, 2024 08:50 AM MYELOGRAM THORACIC (P): AWAIS PADILLA [id number] -1990 F Exm Date: DEC 09, 2024@08:50 Req Phys: STEPHEN FRANCOIS Pat Loc: [facility] NEUROSURG DIRECTOR OF SUSTAINABLE DESIGN CONSULT-A (Re Img Loc: MAIN X-RAY Service: Unknown Screen: [place] [address] (Case [id number] COMPLETE) MYELOGRAM THORACIC VIA LUMBAR INJ(RAD Detailed) CPT:17258 Reason for Study: Eval for arachnoid web or cyst at T6 level Clinical History: myelopathy Outside hosptial Thoracic mri w wo contrast is loaded into [facility]. Please do comparison . thank you Responsible provider name and phone number to notify for critical findings if other than user placing the order and pager listed below: User placing orders pager: [phone] Neurosurgery electronic device repairer LAST CREATININE 0.6 (11/22/24) Report Status: Verified Date Reported: DEC 09, 2024 Date Verified: DEC 09, 2024 Personal Lines Account Manager E-Sig:/ES/CARITO POLANCO MD Report: PROCEDURE: Lumbar puncture with fluoroscopic guidance. Thoracic myelogram. History: Myelopathy. Thoracic MRI shows dorsal lesion at T6. Comparison: Outside recent thoracic MRI exam from the [facility]. Fluoro time: 0.8 minute Dose: Air [...] Primary Interpreting Staff: CARITO POLANCO MD, RADIOLOGIST (Personal Lines Account Manager) /CARITO TOLENTINO [facility] Nov 22, 2024 07:12 PM NON [place] MRI THORACI C SPINE: AWAIS PADILLA [place] [id number] -1990 F Exm Date: NOV 22, 2024@19:12 Req Phys: CINDY ZAMORANO Loc: [facility] XRAY GENERAL AM (Req'g Loc Img Loc: OUTSOURCE MRI Service: Unknown Screen: Patient answered no (Case [id number] COMPLETE) NON [place] MRI THORACIC SPINE (MRI Detailed) CPT:35137 Reason for Study: OUTSIDE STUDY Clinical History: OUTSIDE STUDY Report Status: Electronically Filed Date Reported: NOV 30, 2024 Report: This is an outside Imaging study and/or report imported for continuity of patient care. This Imaging study and/or report was not reviewed or verified by a [place] Radiologist. Impression: This is an outside Imaging study and/or report imported for continuity of patient care. This Imaging study and/or report was not reviewed or verified by a [place] Radiologist. Primary Diagnostic Code: VERIFIED BY: / *ELECTRONICALLY FILED* [facility] Nov 15, 2024 12:[address] BODY W/O CO NTRAST (P): AWAIS PADILLA [id number] -1990 F Exm Date: NOV 15, 2024@12:39 Req Phys: KURT NEWELL Loc: KISHA NEWELL (Req'g Loc) Img Loc: [facility] MED Service: Unknown Screen: [place] [address] (Case [id number] COMPLETE) SKULL-THIGH PET IMAGE W/CT (NM Detailed) CPT:12443 Reason for Study: Evaluation for malignacy (Case [...] pager listed below: User placing orders pager: [phone] LAST CREATININE 0.6 (07/24/24) Report Status: Verified Date Reported: NOV 15, 2024 Date Verified: NOV 15, 2024 Personal Lines Account Manager E-Sig:/ES/CAIN SMART MD Report: PET/CT SCAN INDICATION: [...] Staff: CAIN SMART MD, RADIOLOGY STAFF PHYSICIAN (Personal Lines Account Manager) /[facility] CR [facility] Nov 10, 2024 10:23 AM NON [facility] MRI THORACI C SPINE: AWAIS PADILLA [place] [id number] -1990 F Exm Date: NOV 10, 2024@10:23 Req Phys: CINDY ZAMORANO Loc: [facility] XRAY GENERAL AM (Req'g Loc Img Loc: OUTSOURCE MRI Service: Unknown Screen: Patient answered no (Case [id number] COMPLETE) NON [facility] MRI THORACIC SPINE (MRI Detailed) CPT:14637 Reason for Study: OUTSIDE STUDY Clinical History: OUTSIDE STUDY Report Status: Electronically Filed Date Reported: NOV 30, 2024 Report: This is an outside Imaging study and/or report imported for continuity of patient care. This Imaging study and/or report was not reviewed or verified by a [place] Radiologist. Impression: This is an outside Imaging study and/or report imported for continuity of patient care. This Imaging study and/or report was not reviewed or verified by a [place] Radiologist. Primary Diagnostic Code: VERIFIED BY: / *ELECTRONICALLY FILED* [facility] Nov 10, 2024 10:03 AM NON [place] MRI CERVICA L SPINE: AWAIS PADILLAE [id number] -1990 F Exm Date: NOV 10, 2024@10:03 Req Phys: CINDY ZAMORANO Loc: [facility] XRAY GENERAL AM (Req'g Loc Img Loc: OUTSOURCE MRI Service: Unknown Screen: Patient answered no (Case [id number] COMPLETE) NON [facility] MRI CERVICAL SPINE (MRI Detailed) CPT:14844 Reason for Study: OUTSIDE STUDY Clinical History: OUTSIDE STUDY Report Status: Electronically Filed Date Reported: NOV 30, 2024 Report: This is an outside Imaging study and/or report imported for continuity of patient care. This Imaging study and/or report was not reviewed or verified by a [place] Radiologist. Impression: This is an outside Imaging study and/or report imported for continuity of patient care. This Imaging study and/or report was not reviewed or verified by a [place] Radiologist. Primary Diagnostic Code: VERIFIED BY: / *ELECTRONICALLY FILED* [facility] Nov 10, 2024 09:46 AM NON [place] MRI LUMBAR SPINE: AWAIS PADILLA [id number] -1990 F Exm Date: NOV 10, 2024@09:46 Req Phys: CINDY ZAMORANO Pat Loc: [facility] XRAY GENERAL AM (Req'g Loc Img Loc: OUTSOURCE MRI Service: Unknown Screen: Patient answered no (Case [id number] COMPLETE) NON [place] MRI LUMBAR SPINE (MRI Detailed) CPT:63324 Reason for Study: OUTSIDE STUDY Clinical History: OUTSIDE STUDY Report Status: Electronically Filed Date Reported: NOV 30, 2024 Report: This is an outside Imaging study and/or report imported for continuity of patient care. This Imaging study and/or report was not reviewed or verified by a [place] Radiologist. Impression: This is an outside Imaging study and/or report imported for continuity of patient care. This Imaging study and/or report was not reviewed or verified by a [place] Radiologist. Primary Diagnostic Code: VERIFIED BY: / *ELECTRONICALLY FILED* [facility] Encounter Notes: All associated encounter notes This section contains the clinical notes associated to the Encounter. Date/Time Encounter Note(s) Provider Source Dec 09, 2024 11:24 AM NURSING OUTPATIENT NOTE: LOCAL TITLE: NURSING SHORT STAY NOTE STANDARD TITLE: NURSING OUTPATIENT NOTE DATE OF NOTE: DEC 09, 2024@11:24 ENTRY DATE: DEC 09, 2024@11:24:26 AUTHOR: QUANG SANTOIGNER: URGENCY: STATUS: COMPLETED NURSING SHORT STAY NOTE Has ADDENDA Nursing Post-Myelogram or Lumbar Puncture Note Education: Patient given the opportunity to ask questions and verbalizes understanding of post procedure instructions. Procedure: myelogram and CT Returned to floor at Nov@10:20 via stretcher Vital Signs Temperature: 98.5 F [36.9 C] (12/09/2024 10:22) Pulse: 69 (12/09/2024 10:52) Respirations: 16 (12/02/2024 08:04) Blood Pressure: 124/79 (12/09/2024 10:52) Pain: 5 (12/02/2024 08:04) O2 Sats: 98% (12/09/2024 10:22) Site Description: c/d/i Head of bed elevated to: 30-45 degrees Headache? Slight headache, improved after resting and eating. Bedrest until: 1215 Release Criteria Education: Patient demonstrates readiness to learn and has been instructed on the instructions for home care. 1. Vital signs consistent with baseline reading of BP +/- 20mmHg, no signs and/or symptoms of respiratory distress, Temperature < 100 F, SPO2 greater than or equal to 90% on room air or at baseline. Met 2. Level of alertness and orientation at baseline. Met 3. Comfort level near baseline and acceptable to patient. Met 4. Received written instructions for home care. Met 5. Return to usual activities in the morning. If experiencing headache, remain on bedrest. Met 6. Transportation/home support arrangements assessed and satisfactory. Patient not to drive or be alone for 18 hours. Name of responsible person (petroleum transport driver/certified public accountant) and phone number: Met 7. Neurology Chief Resident [phone] or Neurosurgery service [phone] to assess patient post-procedure before release. Met 8. Patient/Responsible person verbalizes understanding of release instructions. Met 9. Patient has received his/her personal belongings. Met 10. Patient to call phone number [phone] in case of questions or [phone] in case of emergency. Met Wristband Removal: Patient wristband was removed and destroyed by being placed in the shred bin. 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 Her current issue was that she had some back pain from her procedure. She stated that she had felt pressure, tingling and terrible pain down her right leg during her xray procedure, strong enough that she was crying in pain. She stated the pain relieved somewhat once the table she was on was tilted as part of the procedure. She stated on assessment that her current pain, while much improved, was still bothersome to her. She mentioned that when she went home, she would be able to take some gabapentin, stating that she did get relief from that medication usually. Through her bedrest she was required to keep her head elevated between 30-45 degrees, and she was able to position herself side to side to help with discomfort. The patient also ambulated independently to the bathroom to void, and stated walking helped her somewhat with her pain, but that she didn't trust her legs all the time as she had occasional weakness in the past. Neuro exam was WNL of her BLE, strength noted as 5/5 throughout her time on 2L. Radiology was contacted about pain meds, and tylenol was offered. The patient stated she had tylenol and ibuprofen with her, and that would not relieve her pain. Patient asked about getting hydrocodone, if possible, for her back pain prior to discharging. She was worried about increased pain during the [address] back home[address] The patient and this commercial lines underwriter reached out to neurosurgery separately via her phone during this time, and the patient requested that I reach out the pain clinic for her as she had been seen there on another day for a consult. After reaching out to her providers as she asked, I recommended that she go to the ED if she wished to be assessed for pain. Patient stated she was okay, and felt comfortable with the plan of care. She said she didn't feel that she needed to be seen downstairs. I reminded her about follow up cares to myelogram, drinking water, keeping her head elevated. She independently transfered to a wheelchair, and was brought down to the outpatient entrance to await her ride. /los/ QUANG SANTO RN REGISTERED NURSE Signed: 12/09/2024 14:40 QUANG SANTO [facility]
--- OUTSIDE RECORDS SUMMARY | 2024-12-13 08:00 | XMS_ITS | Encounter Summary ---
Author Name [facility] Organization [facility] Address [address] [place] [address] Care Team Providers Care Web Site Project Manager Name Role Phone CINDY ZAMORANO Primary Care Provider Unavail able Selected Encounter This section includes the information on record at [place] for the Encounter. Date/Time Encounter Type Encounter Description Reason Provider Source Dec 13, 2024 01:00 PM OFFICE O/P EST HI 40 MIN NEUROLOGY ICD-10-CM R53.1 Weakness JOSE ANTONIO NEWTON Encounter Template Text not used by [place] Assessments - Encounter Diagnoses This section includes the primary and secondary diagnoses documented for the Encounter. Date/Time Primary/Secondary Diagnosis Diagnosis Name Provider Source Jan 05, 2025 10:49 AM PRIMARY Weakness [facility] Jan 05, 2025 10:49 AM SECONDARY Myelopathy in diseases classified elsewhere [facility] Jan 05, 2025 10:49 AM SECONDARY Pain in thoracic spine [facility] Jan 05, 2025 10:49 AM SECONDARY Unspecified abnormalities of gait and mobility [facility] Plan of Treatment: Future Appointments (+ 6 months) and Future Tests (+/- 45 days) The Plan of Treatment section includes future care activities for the patient from all [facility] treatment[facility]ilities. This section includes future appointments and future orders which are active, pending or scheduled. Future Appointments This section includes appointments that were scheduled to occur 6 months from the date of the Encounter, up to a maximum of 20 appointments. The data comes from all [facility]. Appointment Date/Time Appointment Type Appointme nt Facility Name Dec 16, 2024 07:00 AM AMBULATORY - NONE [facility] Dec 21, 2024 10:00 AM AMBULATORY - REHAB MEDICIN E [facility] Dec 22, 2024 11:00 AM AMBULATORY - SURGERY [facility] Dec 23, 2024 08:00 AM AMBULATORY - REHAB MEDICIN E [facility] Dec 28, 2024 01:00 PM AMBULATORY - REHAB MEDICIN E [facility] Dec 29, 2024 10:00 AM AMBULATORY - REHAB MEDICIN E [facility] Jan 02, 2025 08:30 AM AMBULATORY - REHAB MEDICIN E [facility] Jan 05, 2025 01:58 PM AMBULATORY - MEDICINE [facility] Jan 06, 2025 03:00 PM AMBULATORY - REHAB MEDICIN E [facility] Jan 10, 2025 09:00 AM AMBULATORY - REHAB MEDICIN E [facility] Jan 12, 2025 02:20 PM AMBULATORY - NONE [facility] Jan 16, 2025 10:00 AM AMBULATORY - REHAB MEDICIN E [facility] Jan 18, 2025 09:00 AM AMBULATORY - REHAB MEDICIN E [facility] Jan 23, 2025 09:00 AM AMBULATORY - REHAB MEDICIN E [facility] Jan 25, 2025 09:00 AM AMBULATORY - REHAB MEDICIN E [facility] Feb 01, 2025 03:00 PM AMBULATORY - REHAB MEDICIN E [facility] February 21, 2025 09:00 AM AMBULATORY - NONE [facility] February 21, 2025 10:00 AM AMBULATORY - MEDICINE [facility] February 23, 2025 01:00 PM AMBULATORY - REHAB MEDICIN E [facility] March 14, 2025 02:00 PM AMBULATORY - REHAB MEDICIN E [facility] Active, Pending, and Scheduled Orders This section includes a listing of several types of active, pending, and scheduled orders, including clinic medications orders, diagnostic test orders, procedure orders and consult orders; where the start date of the order is 45 days before the date of the Encounter or 45 days after the date of theEncounter. The data comes from all [place] treatment facilities. Test Date/Time Test Type Test Details Facility Name Nov 30, 2024 12:00 AM Laboratory - Chemi stry Order CBC BLOOD STAT SP ONCE [facility] Nov 30, 2024 12:00 AM Laboratory - Chemi stry Order CREATININE(INCLUDES EGFR) PLASMA STAT SP ONCE [facility] Nov 30, 2024 12:00 AM Laboratory - Chemi stry Order PROTHROMBIN TIME/INR PLASMA STAT SP [facility] Lab Results: +/- 30 days of the encounter This section includes the Chemistry and Hematology Lab Results on record with [place] for the patient. Radiology Reports and Pathology Reports are provided separately, in subsequent sections. Lab Results This section contains the Chemistry/Hematology Results that were resulted 30 days before or 30 daysafter the date of the Encounter. Date/Time Source Result Type Result - Unit Interpretation Reference Range Specimen Type Comment Dec 09, 2024 08:34 AM [facility] PROTHROMBIN TIME/INR PLASMA Specimen Type: PLASMA No comment entered. Ordering Provider: STEPHEN FRANCOIS Report Released Date/Time: Dec 06, 2024 09:29 AM Reporting Lab: [facility] [id number] Performing Lab: [facility] [id number] .INR 1.1 0.8-1.1 .PT 12.9 s H 9.4-12.5 Dec 09, 2024 08:34 AM [facility] CREATININE(INCLUDES EGFR) PLASMA Sp ecimen Type: PLASMA No comment entered. Ordering Provider: STEPHEN FRANCOIS Report Released Date/Time: Dec 06, 2024 09:29 AM Reporting Lab: [facility] [phone] Performing Lab: [facility] [phone] CREATININE 0.6 mg/dL 0.5-1.0 .CREAT EGFR(CKD-EPI) >90 >60 Dec 09, 2024 08:34 AM [facility] CBC & DIFF BLOOD Specimen Type : BLOOD Comment: Automated Differential Performed Ordering Provider: STEPHEN FRANCOIS Report Released Date/Time: Dec 06, 2024 09:29 AM Reporting Lab: [facility] [phone] Performing Lab: [facility] [phone] WBC 4.4 4.0-11.0 RBC 4.42 4.00-5.40 HGB [...] 0.0 0.0-0.1 Nov 22, 2024 09:45 AM [facility] URIC ACID PLASMA Specimen Type: PLASMA No comment entered. Ordering Provider: KURT NEWELL Report Released Date/Time: Apr 26, 2024 10:33 AM Reporting Lab: [facility] [phone] Performing Lab: [facility] [address] URIC ACID 5.4 mg/dL 2.5-6.2 Nov 22, 2024 09:45 AM [facility] LD,TOTAL PLASMA Specimen Type: PLASMA No comment entered. Ordering Provider: KURT NEWELL Report Released Date/Time: Apr 26, 2024 10:33 AM Reporting Lab: [facility] [phone] Performing Lab: [facility] [address] LD,TOTAL 194 U/L 125-220 Nov 22, 2024 09:45 AM [facility] COMPREHENSIVE METABOLIC PANEL+MG PLASMA Specimen Type: PLASMA No comment entered. Ordering Provider: KURT NEWELL Report Released Date/Time: Apr 26, 2024 10:33 AM Reporting Lab: [facility] [phone] Performing Lab: [facility] [address] CREATININE 0.6 mg/dL 0.5-1.0 UREA NITROGEN 12 [...] >90 >60 Nov 22, 2024 09:44 AM [facility] CBC & DIFF BLOOD Specimen Type: BLOOD Comment: Automated Differential Performed Ordering Provider: KURT NEWELL Report Released Date/Time: Oct 25, 2024 10:32 AM Reporting Lab: [facility] [address] Performing Lab: [facility] [address] WBC 5.4 4.0-11.0 RBC 4.58 4.00-5.40 HGB [...] 0.0 0.0-0.1 Nov 15, 2024 12:58 PM [facility] FINGERSTICK GLUCOSE BLOOD Specimen Type: BLOOD Comment: Save Result Ordering Provider: ICNDY ZAMORANO Report Released Date/Time: Nov 17, 2024 07:56 AM Reporting Lab: [facility] [phone] Performing Lab: [facility] [phone] FINGERSTICK GLUCOSE 87 mg/dL 70-100 Vital Signs: All taken on the encounter date This section contains inpatient and outpatient Vital Signs collected on the date of the Encounter. Date/Time Temperature Pulse Blood Pressure Respiratory Rate SP02 Pain Height Weight Body Mass Index Source Dec 13, 2024 01:03 PM 77 124/85 18 97 7 [facility] Social History: Smoking Status (Most current) and Tobacco Use (All prior to encounter date) This section includes the most current, and the historical, smoking and tobacco- related health factors from the [place] facility where the Encounter took place. Current Smoking Status This section includes the most current smoking, or tobacco-related health factor, from the [place] facility where the Encounter took place. Date/Time Current Smoking Status Comment Srini ity Nov 27, 2023 03:30 PM PA-TOBACCO QUIT 5 TO < 15 YRS [facility] Tobacco Use History This section includes a history of the smoking, or tobacco-related health factors, that were collected on or before the date of the Encounter. The data comes from the [place] facility where the Encounter took place. Date/Time Smoking Status/Tobacco Use Comment F acility Nov 27, 2023 03:30 PM PA-TOBACCO QUIT 5 TO < 15 YRS [facility] Jan 14, 2023 09:03 AM VA-TOBACCO FORMER USER [facility] Jan 14, 2023 09:03 AM PA-TOBACCO QUIT 5 TO < 15 YRS [facility] Radiology Reports: +/- 30 days of [...] the Encounter. The data comes from all [place] treatment facilities. Date/Time Radiology Report Provider Source Dec 16, 2024 07:03 AM MRI-BRAIN (P): AWAIS PADILLA [id number] -1990 F Exm Date: DEC 16, 2024@07:03 Req Phys: STEPHEN FRANCOIS Loc: [facility] ROLL FORM OPERATOR CONSULT-A (Re Img Loc: MRI IMAGING Service: Unknown Screen[place] [address] (Case [id number] COMPLETE) MRI BRAIN/BRAINSTEM W/O CONTRAST (MRI Detailed) CPT:00151 Reason for Study: Myelopathy Clinical History: Did the ordering provider speak with a biztalk consultant regarding this imaging exam?No Brain MRI without contrast Myelopathy LAST CREATININE 0.6 (11/22/24) Allergies: METOPROLOL (Jan 14, 2023) REGLAN (Jan 14, 2023) My pager number on record is: [phone]. The pager number/cell phone number above is [...] 16, 2024 Date Verified: DEC 16, 2024 Flight Steward E-Sig:/ES/SUJIT DENIS MD Report: MRI BRAIN/BRAINSTEM W/O [...] Primary Interpreting Staff: SUJIT DENIS MD, RADIOLOGIST (Flight Steward) /[facility] SUJIT DENIS [facility] Dec 09, 2024 09:[address] MYELOGRAM THORFederico CIC (P): PADILLA,AWAIS MODESTO [id number] -1990 F Exm Date: DEC 09, 2024@09:52 Req Phys: STEPHEN FRANCOIS Pat Loc: [facility] ROLL FORM OPERATOR CONSULT-A (Re Img Loc: CT IMAGING Service: Unknown Screen: [place] [address] (Case [id number] COMPLETE) CT MYELOGRAM THORACIC SPINE (CT Detailed) CPT:88243 CPT Modifiers : 59 DISTINCT PROCEDURAL SERVICE [...] PLASMA .CREAT EGFR(CKD-E >90 Ref: >=60 Allergies: ([place] only) METOPROLOL (Jan 14, 2023) REGLAN (Jan 14, 2023) Defer to radiologist for final CT protocol. User Placing Order: STEPHEN FRANCOIS L - Office Phone: My pager number on record is: [phone]. The pager number/cell phone number above is NOT correct for reporting critical results, I have entered my correct number below: My correct contact # for critial results is:neurosurgery motor vehicle salesperson Trainees only: Enter your staff provider's info here: Per Joint Commission Standards, by signing this diagnostic imaging request the ordering provider confirms they have considered patients age and recent imaging history. Report Status: Verified Date Reported: DEC 09, 2024 Date Verified: DEC 09, 2024 Flight Steward E-Sig:/ES/CARITO POLANCO MD Report: CT Thoracic Spine [...] Primary Interpreting Staff: CARITO POLANCO MD, RADIOLOGIST (Flight Steward) /CARITO TOLENTINO [facility] Dec 09, 2024 08:50 AM MYELOGRAM THORACIC (P): AWAIS PADILLA [id number] -1990 F Exm Date: DEC 09, 2024@08:50 Req Phys: STEPHEN FRANCOIS Loc: [facility] ROLL FORM OPERATOR CONSULT-A (Re Img Loc: MAIN X-RAY Service: Unknown Screen: [place] [address] (Case [id number] COMPLETE) MYELOGRAM THORACIC VIA LUMBAR INJ(RAD Detailed) CPT:24647 Reason for Study: Eval for arachnoid web or cyst at T6 level Clinical History: myelopathy Outside hosptial Thoracic mri w wo contrast is loaded into [facility]. Please do comparison . thank you Responsible provider name and phone number to notify for critical findings if other than user placing the order and pager listed below: User placing orders pager: [phone] Neurosurgery motor vehicle salesperson LAST CREATININE 0.6 (11/22/24) Report Status: Verified Date Reported: DEC 09, 2024 Date Verified: DEC 09, 2024 Flight Steward E-Sig:/ES/CARITO POLANCO MD Report: PROCEDURE: Lumbar puncture with fluoroscopic guidance. Thoracic myelogram. History: Myelopathy. Thoracic MRI shows dorsal lesion at T6. Comparison: Outside recent thoracic MRI exam from the [facility]. Fluoro time: 0.8 minute Dose: Air Kerma: 3.9, mGy, DAP: 3.54, dGy.cm? PROCEDURE: The patient/medical decision-maker understood the limitations, alternatives, and risks of the procedure and requested the procedure be performed. Both iMed and oral consent were obtained. A pre-procedural Time-Out was performed per [facility] policy. The patient was prepped [...] Primary Interpreting Staff: CARITO POLANCO MD, RADIOLOGIST (Flight Steward) /CARITO TOLENTINO [facility] Nov 22, 2024 07:12 PM NON PA MRI THORACI C SPINE: AWAIS PADILLA [id number] -1990 F Exm Date: NOV 22, 2024@19:12 Req Phys: CINDY ZAMORANO Loc: [facility] XRAY GENERAL AM (Req'g Loc Img Loc: OUTSOURCE MRI Service: Unknown Screen: Patient answered no (Case [id number] COMPLETE) NON [facility] MRI THORACIC SPINE (MRI Detailed) CPT:87456 Reason for Study: OUTSIDE STUDY Clinical History: OUTSIDE STUDY Report Status: Electronically Filed Date Reported: NOV 30, 2024 Report: This is an outside Imaging study and/or report imported for continuity of patient care. This Imaging study and/or report was not reviewed or verified by a [place] Radiologist. Impression: This is an outside Imaging study and/or report imported for continuity of patient care. This Imaging study and/or report was not reviewed or verified by a [place] Radiologist. Primary Diagnostic Code: VERIFIED BY: / *ELECTRONICALLY FILED* [facility] Nov 15, 2024 12:[address] BODY W/O CO NTRAST (P): AWAIS PADILLA [id number] -1990 F Exm Date: NOV 15, 2024@12:39 Req Phys: KURT NEWELL Pat Loc: [facility] ONC OSIRIS (Req'g Loc) Img Loc: NUC MED Service: Unknown Screen: [place] [address] (Case [id number] COMPLETE) SKULL-THIGH PET IMAGE W/CT (NM Detailed) CPT:65328 Reason for Study: Evaluation for malignacy (Case [...] pager listed below: User placing orders pager: [phone] LAST CREATININE 0.6 (07/24/24) Report Status: Verified Date Reported: NOV 15, 2024 Date Verified: NOV 15, 2024 Flight Steward E-Sig:/ES/CAIN SMART MD Report: PET/CT SCAN INDICATION: [...] Staff: CAIN SMART MD, RADIOLOGY STAFF PHYSICIAN (Flight Steward) /CAIN CR [facility] Encounter Notes: All associated encounter notes This section contains the clinical notes associated to the Encounter. Date/Time Encounter Note(s) Provider Source Dec 13, 2024 05:47 PM NEUROLOGY ATTENDING NOTE: LOCAL TITLE: NEUROLOGY CLINIC NOTE STANDARD TITLE: NEUROLOGY ATTENDING NOTE DATE OF NOTE: DEC 13, 2024@17:47 ENTRY DATE: DEC 13, 2024@17:47:26 AUTHOR: CORETTA BALDWIN EXP COSIGNER: URGENCY: STATUS: COMPLETED NEUROLOGY CLINIC NOTE Has ADDENDA NEUROLOGY PROGRESS NOTE CC: Bilateral lower extremity weakness, thoracic arachnoid web HISTORY OF PRESENT ILLNESS AWAIS SMAI PADILLA is a 34-year-old female with PMH of TBI with postconcussion syndrome, chronic headaches, splenomegaly, DRAKE, mood disorders presented to clinic for the follow-up of recent ED visit where she was seen by neurology for acute bilateral lower extremity weakness and symptoms concerning for myelopathy. Since her ED visit she was seen by neurosurgery who ordered a CT myelogram, MRI brain. She was also seen in the pain clinic for complex chronic pain, he is on gabapentin 300 mg 3 times daily and is scheduled to see pain psychology. She has not seen physical or occupational therapy yet. She state since her last visit she had good and bad days. She symptoms her symptoms are better early in the day and tend to get worse as the day progresses. She also mentions paresthesias over the right arm and the left leg. She underwent CT myelogram in the past week and since then she has pain radiating from the back down to left leg. She started using cane about a year ago and mentions difficulty with ADLs. She is requesting if she can use a walker has her symptoms did tend to get worse when she bends with weightbearing on the cane and her legs feel weak. She denied any falls and she mentions stopped using the stairs at home. She denied bowel or bladder incontinence. ROS: 10-point ROS completed and negative unless [...] less than 60 - Maternal grandfather of [place] at 50 8. History of cerebrospinal fluid leak - History of CSF leak after epidural during labor; improved without intervention 9. History of gestational diabetes mellitus - First - Diagnostic CGM March 2024 (concern for symptomatic hypoglycemia): Normal. no hypo or hyperglycemia 10. Generalized enlarged lymph nodes 11. Splenomegaly 12. Myelopathy ALLERGIES: METOPROLOL (Jan 14, 2023) REGLAN (Jan 14, 2023) EXAM Neurologic Exam: Mental status: Alert and oriented to person, place, time; Recalls remote and recent history with accuracy Speech/Language: Clear and fluent without paraphasic errors. No extinction or neglect. Volume appropriate. Naming, repetition, comprehension all intact patent solicitor II - No visual field deficit; Fundi normal III/IV/ - pupils are equate, round and symmetrically reactive to light and accomodation; EOMs are full without nystagmus. Normal isometric saccadic movements. No ptosis, diplopia. V - Light touch full and symmetric [...] 5 Finger Abd 5 5 Hip Flex 5 5 Knee Flex 5 5 Knee Ext 5 5 Dorsiflex 5 5 Plantarflex 5 5 Bulk - Appropriate, no atrophy or hypertrophy appreciated Tone - Appropriate, no spasticity Fasciculation - absent Pronator drift - absent Tremor - absent Sensory Light/general touch: Normal and symmetric throughout x4E's Pinprick: Normal and symmetric throughout x4E's Vibratory: Normal and symmetric throughout x4E's Reflexes R L Triceps 3+ 3+ Biceps 3+ 3+ Brachioradialis 3+ 3+ Patellar 3+ 3+ Achilles 2+ 2+ Toes down-going b/l Regalado's sign present b/l Coordination/station/gait FNF: Precise and accurate, without tremor H2S: Accurate slide, without tremor Finger tapping: Normal speed, symmetric Heel tapping: Normal speed, symmetric Gait: Patient feels unsteady with her gait-trembles a lot and has difficulty with taking a normal step. She tends to drag her feet across the floor with short steps and instability. Patient is unable to tandem or toe walk. SUMMARY OF PERTINENT INVESTIGATIONS Imaging: ASSESSMENT & RECOMMENDATIONS IMPRESSION: AWAIS PADILLA is a 34-year-old female with PMH of TBI with postconcussion syndrome, chronic headaches, splenomegaly, DRAKE, mood disorders presented to clinic for the follow-up of recent ED visit where she was seen by neurology for acute bilateral lower extremity weakness and symptoms concerning for myelopathy. Since her last visit she continues to report progressive worsening of her symptoms. She was seen by neurosurgery who were also concern for possible myelopathy and recommended a CT myelogram, MRI brain. CT myelogram was done and reported findings consistent with thoracic arachnoid web. On examination today she has good strength proximal and distal in bilateral upper and lower extremities. She does have brisk reflexes in all extremities. She has severe gait instability where she tends to take small steps with feet dragging across the floor and trembling all over. Given the exam findings we are concerned for dynamic cord compression and we will follow-up with neurosurgery recommendations. She will also need to work with PT/OT and is following with pain clinic. PLAN: - Recommend follow up with PT/OT for gait instability - Recommend f/u with NSGY for arachnoid web. Concern for dynamic cord compression with certain postures. - Continue Gabapentin 300 mg TID and follow with pain clinic - Return to the clinic in 3 months Patient seen and discussed with neurology attending, YUE [place] Neurology Resident, PGY-2 /los/ CORETTA BALDWIN Signed: 12/18/2024 23:17 Receipt Acknowledged By: 12/20/2024 13:36 /los/ JOSE ANTONIO NEWTON Physician 12/20/2024 ADDENDUM STATUS: COMPLETED Attending Attestation: I personally reviewed the pertinent history with the patient and examined the patient. I personally reviewed the vital signs, labs, and imaging, and I agree with the assessment and plan as detailed in the Neurology Resident note. Although strength exam is reassuring, hyperreflexia and slowed LE responses, gait difficulty, with normal UE exam and responses, in context of Thoracic MRI finding - will defer to Neurosurgery on clinical significance of finding. Regardless, PT with gait and strength training will be important. /los/ JOSE ANTONIO NEWTON Physician Signed: 12/20/2024 13:43 CORETTA BALDWIN [facility] Dec 13, 2024 01:04 PM NEUROLOGY NURSING OUTPATIENT NOTE: LOCAL TITLE: NEUROLOGY CLINIC NURSING NOTE STANDARD TITLE: NEUROLOGY NURSING OUTPATIENT NOTE DATE OF NOTE: DEC 13, 2024@13:04 ENTRY DATE: DEC 13, 2024@13:04:55 AUTHOR: WOLFGANG EM COSIGNER: URGENCY: STATUS: COMPLETED Type of visit: Appointment Check In Reason for Visit: Here for F/U Gets all medication from the PA. Vital Signs: Blood Pressure: 124/85 (12/13/2024 13:03) Pulse: 77 (12/13/2024 13:03) Respiration: 18 (12/13/2024 13:03) Temperature: 98.5 F [36.9 C] (12/09/2024 10:22) Weight: 223.8 lb [101.51 kg] (11/22/2024 10:09) Height: 67 in [170.2 cm] (02/23/2024 10:25) BMI: 35.1 Pain: 7 (12/13/2024 13:03) Allergies: METOPROLOL (Jan 14, 2023) REGLAN (Jan 14, 2023) Medications: Active Outpatient Medications and Supplies: Active Outpatient Medications (including Supplies): Active Outpatient Medications Status = 1) ACETAMINOPHEN 500MG TAB TAKE TWO TABLETS BY MOUTH EVERY 8 ACTIVE HOURS NEEDED Indication: FOR PAIN 2) CARBOXYMETHYLCELLULOSE NA 0.25% OPH SOLN INSTILL 1 DROP IN ACTIVE BOTH EYES FOUR TIMES A DAY Indication: FOR DRY EYES 3) DOXYCYCLINE HYCLATE 100MG TAB TAKE ONE TABLET BY MOUTH TWICE ACTIVE A DAY Indication: FOR THROAT INFECTION 4) GABAPENTIN 400MG CAP TAKE ONE CAPSULE BY MOUTH THREE TIMES A ACTIVE DAY Indication: FOR PAIN 5) IBUPROFEN 600MG TAB TAKE ONE TABLET BY MOUTH EVERY 8 HOURS ACTIVE Indication: FOR PAIN 6) LORAZEPAM 1MG TAB TAKE ONE TABLET BY MOUTH ONCE 1 HOUR ACTIVE BEFORE SCAN Indication: FOR ANXIETY 7) ONDANSETRON HCL 4MG TAB TAKE ONE TABLET BY MOUTH EVERY 12 ACTIVE HOURS NEEDED Indication: FOR NAUSEA 8) OXYCODONE 5MG TAB TAKE ONE TABLET BY MOUTH EVERY 8 HOURS ACTIVE NEEDED Indication: FOR PAIN 9) RIBOFLAVIN 100MG TAB TAKE FOUR TABLETS BY MOUTH EVERY DAY ACTIVE Indication: FOR HEADACHES Active Non-VA Medications Status = 1) Non-VA NORTRIPTYLINE HCL 10MG CAP 10MG MOUTH AT BEDTIME ACTIVE 2) Non-VA ONDANSETRON TAB 4MG [id number] ACTIVE 11 Total Medications Patient reports the following changes regarding the current pharmacy list of medications: The above medication list confirmed with patient. A copy of the above medication list given to the MD for review and update. Provider will give printed copy of medication list to patient with any changes documented on printed medication list. /los/ WOLFGANG EM LPN CLINICAL LICENSED PRACTICAL NURSE Signed: 12/13/2024 13:05 WOLFGANG EM [facility]
--- OUTSIDE RECORDS SUMMARY | 2024-12-21 05:00 | XMS_ITS | Encounter Summary ---
Author Name [facility] Organization [facility] Address [address] [place] [address] Care Team Providers Care Smoke And Flame Specialist Name Role Phone CINDY ZAMORANO Primary Care Provider Unavail able Selected Encounter This section includes the information on record at [place] for the Encounter. Date/Time Encounter Type Encounter Description Reason Pro vider Source Dec 21, 2024 10:00 AM Outpatient Encounter OCCUPATIONAL THERAPY IHE Encounter Template Text not used by [place] Plan of Treatment: Future Appointments (+ 6 months) and Future Tests (+/- 45 days) The Plan of Treatment section includes future care activities for the patient from all [place] treatmentfacilities. This section includes future appointments and future orders which are active, pending or scheduled. Future Appointments This section includes appointments that were scheduled to occur 6 months from the date of the Encounter, up to a maximum of 20 appointments. The data comes from all [place] treatment facilities. Appointment Date/Time Appointment Type Appointme nt Facility Name Dec 22, 2024 11:00 AM AMBULATORY - SURGERY [facility] Dec 23, 2024 08:00 AM AMBULATORY - REHAB MEDICIN [facility] Dec 28, 2024 01:00 PM AMBULATORY - REHAB MEDICIN [facility] Dec 29, 2024 10:00 AM AMBULATORY - REHAB MEDICIN [facility] Jan 02, 2025 08:30 AM AMBULATORY - REHAB MEDICIN E [facility] Jan 05, 2025 01:58 PM [facility] Jan 06, 2025 03:00 PM AMBULATORY - REHAB MEDICIN E [facility] Jan 10, 2025 09:00 AM AMBULATORY - REHAB MEDICIN E [facility] Jan 12, 2025 02:20 PM [facility] Jan 16, 2025 10:00 AM AMBULATORY - REHAB MEDICIN E [facility] Jan 18, 2025 09:00 AM AMBULATORY - REHAB MEDICIN E [facility] Jan 23, 2025 09:00 AM AMBULATORY - REHAB MEDICIN [facility] Jan 25, 2025 09:00 AM AMBULATORY - REHAB MEDICIN E [facility] Feb 01, 2025 03:00 PM AMBULATORY - REHAB MEDICIN E [facility] February 21, 2025 09:00 AM [facility] February 21, 2025 10:00 AM AMBULATORY - MEDICINE [facility] February 23, 2025 01:00 PM AMBULATORY - REHAB MEDICIN E [facility] March 14, 2025 02:00 PM AMBULATORY - REHAB MEDICIN [facility] Mar 20, 2025 10:30 AM AMBULATORY - RE[facility]AB [facility] Mar 22, 2025 09:00 [facility] Active, Pending, and Scheduled Orders This section includes a listing of several types of active, pending, and scheduled orders, including clinic medications orders, diagnostic test orders, procedure orders and consult orders; where the start date of the order is 45 days before the date of the Encounter or 45 days after the date of theEncounter. The data comes from all [facility]. Test Date/Time Test Type Test Details Facility Name Nov 30, 2024 12:00 AM Laboratory - Chemi stry Order CREATININE(INCLUDES EGFR) PLASMA STAT SP ONCE [facility] Nov 30, 2024 12:00 AM Laboratory - Chemi stry Order CBC BLOOD STAT SP ONCE [facility] Nov 30, 2024 12:00 AM Laboratory - Chemi stry Order PROTHROMBIN TIME/INR PLASMA STAT SP [facility] Lab Results: +/- 30 days [...] Type Comment Dec 09, 2024 08:34 AM [facility] CREATININE(INCLUDES EGFR) PLASMA Specimen Type : PLASMA No comment entered. Ordering Provider: STEPHEN FRANCOIS Report Released Date/Time: Dec 06, 2024 09:29 AM Reporting Lab: [facility] [id number] Performing Lab: [facility] [id number] CREATININE 0.6 mg/dL 0.5-1.0 .CREAT EGFR(CKD-EPI) >90 >60 Dec 09, 2024 08:34 AM [facility] PROTHROMBIN TIME/INR PLASMA Specime n Type: PLASMA No comment entered. Ordering Provider: STEPHEN FRANCOIS Report Released Date/Time: Dec 06, 2024 09:29 AM Reporting Lab: [facility] [phone] Performing Lab: [facility] [id number] .INR 1.1 0.8-1.1 .PT 12.9 s H 9.4-12.5 Dec 09, 2024 08:34 AM [facility] CBC & DIFF BLOOD Specimen Type : BLOOD Comment: Automated Differential Performed Ordering Provider: STEPHEN FRANCOIS Report Released Date/Time: Dec 06, 2024 09:29 AM Reporting Lab: [facility] [phone] Performing Lab: [facility] [phone] WBC 4.4 4.0-11.0 RBC 4.42 4.00-5.40 HGB [...] 0.0 0.0-0.1 Nov 22, 2024 09:45 AM [facility] URIC ACID PLASMA Specimen Type: PLASMA No comment entered. Ordering Provider: KURT NEWELL Report Released Date/Time: Apr 26, 2024 10:33 AM Reporting Lab: [facility] [phone] Performing Lab: [facility] [address] URIC ACID 5.4 mg/dL 2.5-6.2 Nov 22, 2024 09:45 AM [facility] LD,TOTAL PLASMA Specimen Type: PLASMA No comment entered. Ordering Provider: KURT NEWELL Report Released Date/Time: Apr 26, 2024 10:33 AM Reporting Lab: [facility] [phone] Performing Lab: [facility] [address] LD,TOTAL 194 U/L 125-220 Nov 22, 2024 09:45 AM [facility] COMPREHENSIVE METABOLIC PANEL+MG PLASMA Specimen Type: PLASMA No comment entered. Ordering Provider: KURT NEWELL Report Released Date/Time: Apr 26, 2024 10:33 AM Reporting Lab: [facility] [phone] Performing Lab: [facility] [address] CREATININE 0.6 mg/dL 0.5-1.0 UREA NITROGEN 12 [...] >90 >60 Nov 22, 2024 09:44 AM [facility] CBC & DIFF BLOOD Specimen Type: BLOOD Comment: Automated Differential Performed Ordering Provider: KURT NEWELL Report Released Date/Time: Oct 25, 2024 10:32 AM Reporting Lab: [facility] [phone] Performing Lab: [facility] [address] WBC 5.4 4.0-11.0 RBC 4.58 4.00-5.40 HGB [...] IG(META,MYELO,PRO) 0.2 ABS IMMATURE GRAN 0.0 0.0-0.1 Social History: Smoking Status (Most current) and Tobacco Use (All prior to encounter date) This section includes the most current, and the historical, smoking and tobacco- related health factors from the [place] facility where the Encounter took place. Current Smoking Status This section includes the most current smoking, or tobacco-related health factor, from the [place] facility where the Encounter took place. Date/Time Current Smoking Status Comment Facil ity Nov 27, 2023 03:30 PM VA-TOBACCO QUIT 5 TO < 15 YRS [facility] Tobacco Use History This section includes a history of the smoking, or tobacco-related health factors, that were collected on or before the date of the Encounter. The data comes from the [place] facility where the Encounter took place. Date/Time [...] the Encounter. The data comes from all [place] treatment facilities. Date/Time Radiology Report Provider Source Dec 16, 2024 07:03 AM MRI-BRAIN (P): AWAIS PADILLA [id number] -1990 F Exm Date: DEC 16, 2024@07:03 Req Phys: STEPHEN FRANCOIS Pat Loc: [facility] NON ACOUSTIC OPERATOR CONSULT-A (Re Img Loc: MRI IMAGING Service: Unknown Screen: [place] [address] (Case [id number] COMPLETE) MRI BRAIN/BRAINSTEM W/O CONTRAST (MRI Detailed) CPT:66369 Reason for Study: Myelopathy Clinical History: Did the ordering provider speak with a product safety consultant regarding this imaging exam?No Brain MRI without contrast Myelopathy LAST CREATININE 0.6 (11/22/24) Allergies: METOPROLOL (Jan 14, 2023) REGLAN (Jan 14, 2023) My pager number on record is: [phone]. The pager number/cell phone number above is [...] 16, 2024 Date Verified: DEC 16, 2024 Financial Reporting Accountant E-Sig:/ES/SUJIT DENIS MD Report: MRI BRAIN/BRAINSTEM W/O [...] Primary Interpreting Staff: SUJIT DENIS MD, RADIOLOGIST (Financial Reporting Accountant) /FORMERLY NAMED [facility] SUJIT DENIS [facility] Dec 09, 2024 09:[address] MYELOGRAM [facility] (P): AWAIS PADILLA [id number] -1990 F Exm Date: DEC 09, 2024@09:52 Req Phys: STEPHEN FRANCOIS Pat Loc: [facility] NON ACOUSTIC OPERATOR CONSULT-A (Re Img Loc: CT IMAGING Service: Unknown Screen: [place] [address] (Case [id number] COMPLETE) CT MYELOGRAM THORACIC SPINE (CT Detailed) CPT:82102 CPT Modifiers : 59 DISTINCT PROCEDURAL SERVICE [...] PLASMA .CREAT EGFR(CKD-E >90 Ref: >=60 Allergies: ([place] only) METOPROLOL (Jan 14, 2023) REGLAN (Jan 14, 2023) Defer to radiologist for final CT protocol. User Placing Order: STEPHEN FRANCOIS L - Office Phone: My pager number on record is: [phone]. 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 Report Status: Verified Date Reported: DEC 09, 2024 Date Verified: DEC 09, 2024 Financial Reporting Accountant E-Sig:/ES/CARITO POLANCO MD Report: CT Thoracic Spine [...] Primary Interpreting Staff: CARITO POLANCO MD, RADIOLOGIST (Financial Reporting Accountant) /CARITO TOLENTINO [facility] Dec 09, 2024 08:50 AM MYELOGRAM THORACIC (P): AWAIS PADILLA [id number] -1990 F Exm Date: DEC 09, 2024@08:50 Req Phys: STEPHEN FRANCOIS Pat Loc: [facility] NON ACOUSTIC OPERATOR CONSULT-A (Re Img Loc: MAIN X-RAY Service: Unknown Screen: [place] [address] (Case [id number] COMPLETE) MYELOGRAM THORACIC VIA LUMBAR INJ(RAD Detailed) CPT:26424 Reason for Study: Eval for arachnoid web or cyst at T6 level Clinical History: myelopathy Outside hosptial Thoracic mri w wo contrast is loaded into [facility]. Please do comparison . 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 Thoracic myelogram. History: Myelopathy. Thoracic MRI shows dorsal lesion at T6. Comparison: Outside recent thoracic MRI exam from the [facility]. Fluoro time: 0.8 minute Dose: Air Kerma: 3.9, mGy, DAP: 3.54, dGy.cm? PROCEDURE: The patient/medical decision-maker understood the limitations, alternatives, and risks of the procedure and requested the procedure be performed. Both iMed and oral consent were obtained. A pre-procedural Time-Out was performed per [facility] policy. The patient was prepped and [...] Primary Interpreting Staff: CARITO POLANCO MD, RADIOLOGIST ([place]) /CARITO TOLENTINO [facility] Nov 22, 2024 07:12 PM NON [facility] MRI THORACI C SPINE: AWAIS PADILLA [id number] -1990 F Exm Date: NOV 22, 2024@19:12 Req Phys: CINDY ZAMORANO Loc: [facility] XRAY GENERAL AM (Req'g Loc Img Loc: OUTSOURCE MRI Service: Unknown Screen: Patient answered no (Case [id number] COMPLETE) NON [facility] MRI THORACIC SPINE (MRI Detailed) CPT:70987 Reason for Study: OUTSIDE STUDY Clinical History: OUTSIDE STUDY Report Status: Electronically Filed Date Reported: NOV 30, 2024 Report: This is an outside Imaging study and/or report imported for continuity of patient care. This Imaging study and/or report was not reviewed or verified by a [place] Radiologist. Impression: This is an outside Imaging study and/or report imported for continuity of patient care. This Imaging study and/or report was not reviewed or verified by a [place] Radiologist. Primary Diagnostic Code: VERIFIED BY: / *ELECTRONICALLY FILED* [facility] Encounter Notes: All associated encounter notes This section contains the clinical notes associated to the Encounter. Date/Time Encounter Note(s) Provider Source Dec 21, 2024 03:23 PM NO SHOW NOTE: LOCAL TITLE: NO SHOW/CANCELLATION CLINIC NOTE STANDARD TITLE: NO SHOW NOTE DATE OF NOTE: DEC 21, 2024@15:23 ENTRY DATE: DEC 21, 2024@15:23:59 AUTHOR: SHASHI ZARATE EXP COSIGNER: URGENCY: STATUS: COMPLETED [place] not seen for scheduled appointment due to: No Show Appointment Rescheduled: Yes Please review patient chart and medications for renewal needs (if appropriate). /los/ SHASHI ZARATEOTR/L,BCPR,DRS OCCUPATIONAL THERAPIST Signed: 12/21/2024 15:24 SHASHI ZARATE [facility]
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
--- OUTSIDE RECORDS SUMMARY | 2025-01-04 05:00 | XMS_ITS | Encounter Summary ---
Author Name [facility] Organization [facility] Address [address] [place] [address] Care Team Providers Care Account Auditor Name Role Phone CINDY ZAMORANO Primary Care Provider Unavail able Selected Encounter This section includes the information on record at ME for the Encounter. Date/Time Encounter Type Encounter Description Reason Pro vider Source Jan 04, 2025 10:00 AM Outpatient Encounter CAREGIVER SUPPORT PROGRAM IHE Encounter Template Text not used by ME Plan of Treatment: Future Appointments (+ 6 months) and Future Tests (+/- 45 days) The Plan of Treatment section includes future care activities for the patient from all [place] treatmentfacilities. This section includes future appointments and future orders which are active, pending or scheduled. Future Appointments This section includes appointments that were scheduled to occur 6 months from the date of the Encounter, up to a maximum of 20 appointments. The data comes from all [place] treatment facilities. Appointment Date/Time Appointment Type Appointme nt Facility Name Jan 05, 2025 01:58 PM AMBULATORY - MEDICINE [facility] Jan 06, 2025 03:00 PM AMBULATORY - REHAB MEDICIN E [facility] Jan 10, 2025 09:00 AM AMBULATORY - REHAB MEDICIN E [facility] Jan 12, 2025 02:20 PM AMBULATORY - NONE [facility] Jan 16, 2025 10:00 AM AMBULATORY - REHAB MEDICIN E [facility] Jan 18, 2025 09:00 AM AMBULATORY - REHAB MEDICIN E [facility] Jan 23, 2025 09:00 AM AMBULATORY - REHAB MEDICIN E [facility] Jan 25, 2025 09:00 AM AMBULATORY - REHAB MEDICIN E [facility] Feb 01, 2025 03:00 PM AMBULATORY - REHAB MEDICIN E [facility] February 21, 2025 09:00 AM AMBULATORY - NONE [facility] February 21, 2025 10:00 AM AMBULATORY - MEDICINE [facility] February 23, 2025 01:00 PM AMBULATORY - REHAB MEDICIN E [facility] March 14, 2025 02:00 PM AMBULATORY - REHAB MEDICIN E [facility] Mar 20, 2025 10:30 AM AMBULATORY - REHAB MEDICIN E [facility] Mar 22, 2025 09:00 AM AMBULATORY - REHAB MEDICIN E [facility] Mar 24, 2025 09:00 AM AMBULATORY - REHAB MEDICIN E [facility] Apr 11, 2025 01:00 PM AMBULATORY - REHAB MEDICIN E [facility] Apr 17, 2025 10:00 AM AMBULATORY - REHAB MEDICIN E [facility] Apr 24, 2025 09:00 AM AMBULATORY - REHAB MEDICIN E [facility] Apr 28, 2025 09:30 AM AMBULATORY - SURGERY [facility] Active, Pending, and Scheduled Orders This section includes a listing of several types of active, pending, and scheduled orders, including clinic medications orders, diagnostic test orders, procedure orders and consult orders; where the start date of the order is 45 days before the date of the Encounter or 45 days after the date of theEncounter. The data comes from all [facility]. Test Date/Time Test Type Test Details Facility Name Nov 30, 2024 12:00 AM Laboratory - Chemi stry Order CBC BLOOD STAT SP ONCE [facility] Nov 30, 2024 12:00 AM Laboratory - Chemi stry Order CREATININE(INCLUDES EGFR) PLASMA STAT SP ONCE [facility] Nov 30, 2024 12:00 AM Laboratory - Chemi stry Order PROTHROMBIN TIME/INR PLASMA STAT [facility] Lab Results: +/- 30 days [...] Type Comment Dec 09, 2024 08:34 AM [facility] PROTHROMBIN TIME/INR PLASMA Specimen Type: PLASMA No comment entered. Ordering Provider: STEPHEN FRANCOIS Report Released Date/Time: Dec 06, 2024 09:29 AM Reporting Lab: [facility] [id number] Performing Lab: [facility] [id number] .INR 1.1 0.8-1.1 .PT 12.9 s H 9.4-12.5 Dec 09, 2024 08:34 AM [facility] CREATININE(INCLUDES EGFR) PLASMA Sp ecimen Type: PLASMA No comment entered. Ordering Provider: STEPHEN FRANCOIS Report Released Date/Time: Dec 06, 2024 09:29 AM Reporting Lab: [facility] [id number] Performing Lab: [facility] [id number] CREATININE 0.6 mg/dL 0.5-1.0 .CREAT EGFR(CKD-EPI) >90 >60 Dec 09, 2024 08:34 AM [facility] CBC & DIFF BLOOD Specimen Type : BLOOD Comment: Automated Differential Performed Ordering Provider: STEPHEN FRANCOIS Report Released Date/Time: Dec 06, 2024 09:29 AM Reporting Lab: [facility] [id number] Performing Lab: [facility] [id number] WBC 4.4 4.0-11.0 RBC 4.42 4.00-5.40 HGB [...] and tobacco- related health factors from the [place] facility where the Encounter took place. Current Smoking Status This section includes the most current smoking, or tobacco-related health factor, from the ME facility where the Encounter took place. Date/Time Current Smoking Status Comment Facil ity Nov 27, 2023 03:30 PM ME-TOBACCO QUIT 5 TO < 15 YRS [facility] Tobacco Use History This section includes a history of the smoking, or tobacco-related health factors, that were collected on or before the date of the Encounter. The data comes from the ME facility where the Encounter took place. Date/Time Smoking Status/Tobacco Use Comment F acility Nov 27, 2023 03:30 PM ME-TOBACCO QUIT 5 TO < 15 YRS [facility] Jan 14, 2023 09:03 AM VA-TOBACCO FORMER USER [facility] Jan 14, 2023 09:03 AM VA-TOBACCO QUIT 5 TO < 15 YRS [facility] Radiology Reports: +/- 30 days of [...] the Encounter. The data comes from all [place] treatment facilities. Date/Time Radiology Report Provider Source Dec 16, 2024 07:03 AM MRI-BRAIN (P): AWAIS PADILLA [id number] -1990 F Exm Date: DEC 16, 2024@07:03 Req Phys: STEPHEN FRANCOIS Evelyn Loc: [facility] OUTSIDE LABORER CONSULT-A (Re Img Loc: MRI IMAGING Service: Unknown Screen[place] [address] (Case [id number] COMPLETE) MRI BRAIN/BRAINSTEM W/O CONTRAST (MRI Detailed) CPT:27089 Reason for Study: Myelopathy Clinical History: Did the ordering provider speak with a data quality consultant regarding this imaging exam?No Brain MRI without contrast Myelopathy LAST CREATININE 0.6 (11/22/24) Allergies: METOPROLOL (Jan 14, 2023) REGLAN (Jan 14, 2023) My pager number on record is: [phone]. The pager number/cell phone number above is [...] 16, 2024 Date Verified: DEC 16, 2024 [place] Roofer E-Sig:/ES/SUJIT DENIS MD Report: MRI BRAIN/BRAINSTEM W/O [...] Primary Interpreting Staff: SUJIT DENIS MD, RADIOLOGIST ([place] Roofer) /CDC SUJIT DENIS [facility] Dec 09, 2024 09:[address] MYELOGRAM HOANG SHANTA (P): AWAIS PADILLA [id number] -1990 F Exm Date: DEC 09, 2024@09:52 Req Phys: STEPHEN FRANCOIS Pat Loc: [facility] OUTSIDE LABORER CONSULT-A (Re Img Loc: CT IMAGING Service: Unknown Screen: [place] [address] (Case [id number] COMPLETE) CT MYELOGRAM THORACIC SPINE (CT Detailed) CPT:70771 CPT Modifiers : 59 DISTINCT PROCEDURAL SERVICE [...] PLASMA .CREAT EGFR(CKD-E >90 Ref: >=60 Allergies: ([place] only) METOPROLOL (Jan 14, 2023) REGLAN (Jan 14, 2023) Defer to radiologist for final CT protocol. User Placing Order: STEPHEN FRANCOIS - Office Phone: My pager number on record is: [phone]. The pager number/cell phone number above is NOT correct for reporting critical results, I have entered my correct number below: My correct contact # for critial results is:neurosurgery catering operations manager Trainees only: Enter your staff provider's info here: Per Joint Commission Standards, by signing this diagnostic imaging request the ordering provider confirms they have considered patients age and recent imaging history. Report Status: Verified Date Reported: DEC 09, 2024 Date Verified: DEC 09, 2024 Wesley E-Sig:/LOS/CARITO POLANCO MD Report: CT Thoracic Spine without [...] CARITO POLANCO MD, RADIOLOGIST ([place]) /CARITO TOLENTINO [facility] Dec 09, 2024 08:50 AM MYELOGRAM THORACIC (P): AWAIS PADILLA [id number] -1990 F Exm Date: DEC 09, 2024@08:50 Req Phys: STEPHEN FRANCOIS Evelyn Loc: [facility] OUTSIDE LABORER CONSULT-A (Re Img Loc: MAIN X-RAY Service: Unknown Screen: [place] [address] (Case [id number] COMPLETE) MYELOGRAM THORACIC VIA LUMBAR INJ(RAD Detailed) CPT:45029 Reason for Study: Eval for arachnoid web or cyst at T6 level Clinical History: myelopathy Outside hosptial Thoracic mri w wo contrast is loaded into [facility]. Please do comparison . thank you Responsible provider name and phone number to notify for critical findings if other than user placing the order and pager listed below: User placing orders pager: [phone] Neurosurgery catering operations manager LAST CREATININE 0.6 (11/22/24) Report Status: Verified Date Reported: DEC 09, 2024 Date Verified: DEC 09, 2024 Terra [place]ta Roofer E-Sig:/ES/CARITO POLANCO MD Report: PROCEDURE: Lumbar puncture with fluoroscopic guidance. Thoracic myelogram. History: Myelopathy. Thoracic MRI shows dorsal lesion at T6. Comparison: Outside recent thoracic MRI exam from the [facility]. Fluoro time: 0.8 minute Dose: Air Kerma: 3.9, mGy, DAP: 3.54, dGy.cm? PROCEDURE: The patient/medical decision-maker understood the limitations, alternatives, and risks of the procedure and requested the procedure be performed. Both iMed and oral consent were obtained. A pre-procedural Time-Out was performed per [facility] policy. The patient was prepped and [...] Primary Interpreting Staff: CARITO POLANCO MD, RADIOLOGIST ([place]ta Roofer) /CARITO TOLENTINO [facility] Encounter Notes: All associated encounter notes This section contains the clinical notes associated to the Encounter. Date/Time Encounter Note(s) Provider Source Jan 04, 2025 10:03 AM CAREGIVER CERTIFICATE: LOCAL TITLE: CSP TELEPHONE NOTE STANDARD TITLE: CAREGIVER CERTIFICATE DATE OF NOTE: JAN 04, 2025@10:03 ENTRY DATE: JAN 04, 2025@10:03:55 AUTHOR: KALYANI FARFAN EXP COSIGNER: URGENCY: STATUS: COMPLETED Sash Installer signed onto VVC link at 1000 for scheduled VFAI. Caregiver, Paulo, was present in the vehicle, sharing that the was currently at the [facility] for significant pain. He reports that they need to reschedule the visit for today. Sash Installer informed Paulo that our scheduling team will follow up to reschedule VFAI reassessment with him. Alerting [facility]As to cancel of [facility] VVC CG OT 3 at 1000 for VFAI today, 01/04. /los/ KALYANI FARFAN OCCUPATIONAL THERAPIST Signed: 01/04/2025 10:12 Receipt Acknowledged By: 01/06/2025 07:55 /los/ ANA DELGADILLO Advanced Laboratory Sample Carrier 01/04/2025 10:34 /los/ SHEYLA CIFUENTES [facility] Jan 04, 2025 09:52 AM CAREGIVER CERTIFICATE: LOCAL TITLE: CSP PCAFC PRIMARY CARE COLLABORATION STANDARD TITLE: CAREGIVER CERTIFICATE DATE OF NOTE: JAN 04, 2025@09:52 ENTRY DATE: JAN 04, 2025@09:52:08 AUTHOR: KALYANI FARFAN COSIGNER: URGENCY: STATUS: COMPLETED As part of the Program of Comprehensive Assistance for Family Caregiver (PCAFC), the Caregiver Support Program (CSP) collaborates with the [place]'s Primary Care Team to the maximum extent practicable. Primary Care Team means one or more medical records receptionist who care for a patient based on the clinical needs of the patient. Primary Care Teams must include a VA Primary Care Provider who is a physician, advanced practice nurse or a physician imaging assistant. The CSP is seeking input and/or sharing documentation such as comprehensive assessments or progress notes that discuss ADL needs and/or supervision, protection or instruction needs; or a treatment plan. Primary Care Team members are not responsible for determining eligibility for the [facility]. Documentation for collaboration should be within twelve months from the valid application received date or reassessment date, as applicable. Name: AWAIS PADILLA Valid application received date or reassessment date, as applicable: Nov CSP staff was not able to collaborate directly with the [place] Primary Care Team. The [place] chart was reviewed for information within the last twelve (12) months from the valid application received date or reassessment date, as applicable. Upon completing review, the CSP staff completed the following note: Name of primary provider: CINDY ZAMORANO Specialty of provider: PCP Date/Title of documentation reference: 03/22/24 - Medicine Clinic Note Exposure to potentially hazardous substaTraumatic brain injury ([facility] [id number]) Temporomandibular joint disorder (SCT 41Unintentional weight loss ([facility] [id number]) Mood disorder ([facility] [id number]) Headache (SCT 76642538) Family history: Myocardial infarction atHistory of cerebrospinal fluid leak (ICD-10-CM R69.) History of gestational diabetes mellitusGeneralized enlarged lymph nodes (SCT 995380052) Splenomegaly (SCT 87075176) Myelopathy (SCT 19249302) LIMITED FLEXION OF KNEE 10% SC FACIAL SCARS 0% SC LABYRINTHITIS 30% SC TINNITUS 10% SC POST-TRAUMATIC STRESS DISORDER 100% SC KNEE CONDITION 10% SC SUPERFICIAL SCARS 10% SC Active Outpatient Medications (including Supplies): Active Outpatient Medications Status 1) CARBOXYMETHYLCELLULOSE NA 0.25% OPH SOLN INSTILL 1 DROP IN ACTIVE BOTH EYES FOUR TIMES A DAY Indication: FOR DRY EYES 2) GABAPENTIN 400MG CAP TAKE ONE CAPSULE BY MOUTH THREE TIMES A ACTIVE DAY Indication: FOR PAIN 3) LORAZEPAM 1MG TAB TAKE ONE TABLET BY MOUTH ONCE 1 HOUR ACTIVE BEFORE SCAN Indication: FOR ANXIETY 4) ONDANSETRON HCL 4MG TAB TAKE ONE TABLET BY MOUTH EVERY 12 ACTIVE HOURS NEEDED Indication: FOR NAUSEA 5) RIBOFLAVIN 100MG TAB TAKE FOUR TABLETS BY MOUTH EVERY DAY ACTIVE Indication: FOR HEADACHES Active Non-VA Medications Status 1) Non-VA NORTRIPTYLINE HCL 10MG CAP 10MG MOUTH AT BEDTIME ACTIVE 2) Non-VA ONDANSETRON TAB 4MG [id number] ACTIVE 7 Total Medications Current treatment plan (to include timelines, frequency, and duration): Single unifying diagnosis remains elusive. # waxing and waning splenomegaly and cervical lymphadenopathy: Did have positive testing for mono recently. She is following with Dr Bruce of heme/onc. # Headaches and episodic slurring of speech when very fatigued: ?TBI sequelae - has MRI ordered. CT scan of brain today without evidence of intracranial hypotension (of concern due to her history of CSF leak after an epidural during labor, although this healed without incident several years ago). - Provided the scheduling number for the brain MRI #Concern for hypoglycemia: Wakes up sweaty and jittery in the middle of the night. Prior civilian doctor was working her up for hypoglycemia with fingerstick blood sugars which were occasionally as low as 60. - diagnostic CGM placement today. she will return it in person when here for next physical therapy appt. Based on record review, is able to understand the current treatment plan:* Yes Based on record review, Caregiver is noted as being actively involved in the care of the [place]:* Yes Describe caregiver's involvement: Enrolled in CSP Based on record review, Caregiver is noted to be able to understand the current treatment plan:* Yes Based on record review, the care needs of the [place] can be safely provided in a home setting:* Yes Based on record review, there is evidence of [place] being recommended for institutional care:* No /es/ KALYANI FARFAN OCCUPATIONAL THERAPIST Signed: 01/04/2025 09:55 KALYANI FARFAN [facility]
--- OUTSIDE RECORDS SUMMARY | 2025-01-05 08:58 | XMS_ITS | Encounter Summary ---
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 problem at some time. These injuries commonly occur during participation in sports or recreational activities, work-related tasks, or home projects. Most of us do not keep our backs very strong. The lower back is a common injury location, as the muscles of the lower back are put under a lot of strain in everyday life. Pain from an acute back injury is one that does not last longer than 6 weeks. Back pain that lasts several months is treated as chronic back pain. Some treatments may include: -Medicine often helps low back symptoms. Medicine works well to control the pain and reduce inflammation and irritation of the muscle. The type of medicine chosen for you will match the type of symptoms you have. -Heat or cold applied to your back during the first 48 hours after the pain starts may help. Place a cold pack to the painful area for 5 to 10 minutes at a time. If your symptoms last longer than 48 hours, use a heating pad, hot shower or bath to help your back pain. Please follow these instructions: -Rest more than usual for the next few days. Limit your bed rest to 2 to 3 days to avoid weakening your muscles. -When lying down, get up every few hours and walk around. -Apply a heating pad to your back for no longer than 30 minutes three to four times a day. -Take any pain medicine as prescribed. -Do not lift heavy objects until the pain is gone. -Avoid any activity that causes pain. -Wear comfortable, low-heeled shoes. -Make sure your work surface is at a comfortable height for you. -Use a chair with a good lower back support that may recline slightly. -Rest your feet on the floor or on a low stool, if you must sit for long periods of time. -Use a pillow or rolled up towel behind the small of your back if you must drive long distances. Stop often and walk around a few minutes every hour or so. -Sleep on your back with a pillow under your knees, or sleep on your side with your knees bent and a pillow between your knees to avoid trouble sleeping. -Slowly return to your normal activities including exercise. Slowly build up the speed and length of time you do the exercise. Try the following: -walking short distances -using a stationary bicycle -swimming USE THE FOLLOWING BODY MECHANICS TO REDUCE YOUR RISK OF BACK INJURY: Avoid the following: -Bending from your waist. -Lifting heavy objects higher than your waist. -Carrying unbalanced loads and sudden movements. -Activities that arch and strain your back (bending backwards or bending forward touching your toes). -Avoid lifting when twisting, bending forward, and reaching. -Avoid sitting for long periods of time. Do the following: -Bend from your knees and face the object you lift. -Hold heavy objects close to your body. -Change your positions often. -Work with tools close to your body whenever possible, such as mopping or raking. -Sit down to put your shoes and socks on. -Wear shoes with low heels and good support. -Reach for things close to your body. -Round your back and bend your knees slightly when you cough or sneeze. -Kneel when making a bed. -Stand tall with your chin in, back flat, pelvis tucked under and relax your knees. Contact your health care provider as soon as possible if you have any of the following: -numbness, weakness or tingling in their fingers, arms or legs. -increased pain. -no improvement. -any new problems or concerns. IMPORTANT MEDICATION INFORMATION -Your medication list includes [...] have your Medication List reviewed. Pending Medications CIPROFLOXACIN 0.3/DEXAM 0.1% OTIC SUSP \ Sig: INSTILL 4 DROPS IN RIGHT EAR TWICE A DAY\Indication: FOR OTITIS EXTERNA OSELTAMIVIR PO4 75MG CAP \ Sig: TAKE ONE CAPSULE BY MOUTH TWICE A DAY\Indication: Influenza Active Medications CARBOXYMETHYLCELLULOSE NA 0.25% OPH SOLN INSTILL 1 DROP IN BOTH EYES FOUR TIMES A DAY FOR DRY EYES GABAPENTIN 400MG CAP TAKE ONE CAPSULE BY MOUTH THREE TIMES A DAY FOR PAIN LORAZEPAM 1MG TAB TAKE ONE TABLET BY MOUTH ONCE FOR ANXIETY 1 HOUR BEFORE SCAN NORTRIPTYLINE CAP,ORAL 10MG MOUTH AT BEDTIME (Non-VA Medication) ONDANSETRON HCL 4MG TAB TAKE ONE TABLET BY MOUTH EVERY 12 HOURS NEEDED FOR NAUSEA ONDANSETRON TAB 4MG S3IPHUQ (Non-VA Medication) RIBOFLAVIN 100MG TAB TAKE FOUR TABLETS BY MOUTH EVERY DAY FOR HEADACHES Medications Medications in the last 90 days ACETAMINOPHEN 500MG TAB TAKE TWO TABLETS BY MOUTH EVERY 8 HOURS NEEDED FOR PAIN DOXYCYCLINE HYCLATE 100MG TAB TAKE ONE TABLET BY MOUTH TWICE A DAY FOR THROAT INFECTION IBUPROFEN 600MG TAB TAKE ONE TABLET BY MOUTH EVERY 8 HOURS FOR PAIN OXYCODONE 5MG TAB TAKE ONE TABLET BY MOUTH EVERY 8 HOURS NEEDED FOR PAIN PANTOPRAZOLE NA 40MG EC TAB TAKE ONE TABLET BY MOUTH TWICE A DAY FOR 2 WEEKS, THEN TAKE ONE TABLET EVERY DAY FOR STOMACH ACID YOU ARE THE MOST IMPORTANT FACTOR IN [...] OR GO TO THE NEAREST EMERGENCY ROOM /es/ DELBERT ZURITA MD STAFF PHYSICIAN Signed: 01/05/2025 15:06 DELBERT ZURITA [facility] Jan 05, 2025 02:54 PM NURSING EMERGENCY DEPT NOTE: LOCAL TITLE: EMERGENCY DEPT NURSING NOTE STANDARD TITLE: NURSING EMERGENCY DEPT NOTE DATE OF NOTE: JAN 05, 2025@14:54 ENTRY DATE: JAN 05, 2025@14:54:56 AUTHOR: MARÍA DEAN EXP COSIGNER: URGENCY: STATUS: COMPLETED Nursing Focused Assessment: CHIEF COMPLAINT: Pt endorses having cold symptoms for three days including cough and sinus pressure. Was found to have influenza A yesterday. Started having increased right ear pain this morning. While in triage, ear pain increased substantially and pt began to scream loudly and was inconsolable. Pt put self on floor in ER room upon arrival. Allergies/ADR: METOPROLOL (Jan 14, 2023) REGLAN (Jan 14, 2023) Additional allergies not listed: Vital Signs: Vital signs previously recorded this visit: Date Vital Measurement Qualifiers 01/05/2025 14:36 Pain 8 01/05/2025 14:30 Temp F (C) 98.4 (36.9) Oral Pulse 93 BP 149/103 POx (L/Min)(%) 98 Tobacco use: No Alcohol use: No Any drugs besides what is prescribed or over the counter: No INTERVENTIONS: Oriented to room and bed controls Call light within reach of patient or family/friend Bed in low position and locked /los/ MARÍA DEAN RN Signed: 01/05/2025 14:58 MARÍA DEAN [facility] Jan 05, 2025 02:32 PM EMERGENCY DEPT TRIAGE NOTE: LOCAL TITLE: EMERGENCY DEPARTMENT TRIAGE STANDARD TITLE: EMERGENCY DEPT TRIAGE NOTE DATE OF NOTE: JAN 05, 2025@14:32 ENTRY DATE: JAN 05, 2025@14:33:01 AUTHOR: SOFIA RAMOS COSIGNER: URGENCY: STATUS: COMPLETED EMERGENCY DEPARTMENT TRIAGE Has ADDENDA Emergency Department/Urgent Care Center Triage Patient age:34 Sex in chart: FEMALE Mode of Arrival: Private vehicle Other Mode: ride Mode of Mobility: * Wheelchair Chief Complaint: Crying at triage begging to be roomed immediately and not to make her wait. She reports ear pain and that her ear is drum is going to burst any minute. Also reports she is coughing so hard that she is coughing up blood. crossing flagman Note (Subjective/Objective): Also c/o severe back pain. Repeating that she has brain injuries and spinal cord injuries and is upset that her PCP could not see her and that she has to wait in the waiting room. Went to local ED last night and tested + for influenza A. Level of Consciousness (AVPU): Alert = Appears aware of and responsive to the environment on their own. Follows commands, opens eyes spontaneously, and tracks objects. Vital Signs: Vital signs previously recorded this visit: Date Vital Measurement Qualifiers 01/05/2025 14:30 Temp F (C) 98.4 (36.9) Oral Pulse 93 BP 149/103 POx (L/Min)(%) 98 Pain: DVPRS Scale Location: back and ear Defense and Veterans Pain Rating Scale (DVPRS): 8 Awful, hard to do anything Pain Score: 8 Patient's acceptable pain goal: The patient is medically able to conceive. Last normal menstrual period (LNMP): I'm regulary The patient states that they are not . The patient is not currently lactating. Suicide Screen: [place] Suicide Severity Rating Scale (C-SSRS) screener 1. [...] this within the past 3 months? No Emergency Severity Index (ISSAC) level: Level 3 Previously documented allergies: METOPROLOL (Jan 14, 2023) REGLAN (Jan 14, 2023) Current Problems: Exposure to potentially hazardous substaTraumatic brain injury ([facility] [id number]) Temporomandibular joint disorder (SCT 41Unintentional weight loss ([facility] [id number]) Mood disorder ([facility] [id number]) Headache ([facility] [id number]) Family history: Myocardial infarction atHistory of cerebrospinal fluid leak (ICD-10-CM R69.) History of gestational diabetes mellitusGeneralized enlarged lymph nodes (SCT 808617679) Splenomegaly (SCT [id number]) Myelopathy ([facility] [id number]) /los/ SOFIA RAMOS TECHNICAL COMMUNICATOR RN Signed: 01/05/2025 14:39 01/05/2025 ADDENDUM STATUS: COMPLETED 14:45 A very high scream came from the waiting room and then started to yell that her ear has just ruptured. Charge nurse notified to room immediately. When letting her know that a room is being obtained, she started yelling that she shouldn't have to wait. /los/ SOFIA RAMOS TECHNICAL COMMUNICATOR RN Signed: 01/05/2025 14:52 SOFIA RAMOS [facility]
--- OUTSIDE RECORDS SUMMARY | 2025-01-06 10:00 | XMS_ITS | Encounter Summary ---
Author Name [facility] [facility] [place] Address [address] [place] [address] Care Team Providers Care Canteen Manager Name Role Phone CINDY ZAMORANO Primary Care Provider Unavail able Selected Encounter This section includes the information on record at [place] for the Encounter. Date/Time Encounter Type Encounter Description Reason Pro vider Source Jan 06, 2025 03:00 PM Outpatient Encounter OCCUPATIONAL THERAPY IHE Encounter Template Text not used by [place] Plan of Treatment: Future Appointments (+ 6 [...] data comes from all [place] treatment facilities. Appointment Date/Time Appointment Type Appointme nt Facility Name Jan 10, 2025 09:00 AM [facility]ORY - [facility] Jan 12, 2025 02:20 PM [facility]ONE [facility] Jan 16, 2025 10:00 AM AMBULATORY - [facility] Jan 18, 2025 09:00 AM AMBULATORY - [facility] Jan 23, 2025 09:00 AM AMBULATORY - REHAB MEDICIN E [facility] Jan 25, 2025 09:00 AM AMBULATORY - REHAB MEDICIN E [facility] Feb 01, 2025 03:00 PM AMBULATORY - REHAB MEDICIN E [facility] February 21, 2025 09:00 AM AMBULATORY - NONE ANIVAL GARCIA [facility] February 21, 2025 10:00 AM AMBULATORY - MEDICINE KARTIK KEY [facility] February 23, 2025 01:00 PM AMBULATORY - REHAB MEDICIN E [facility] March 14, 2025 02:00 PM AMBULATORY - REHAB MEDICIN E [facility] Mar 20, 2025 10:30 AM AMBULATORY - REHAB MEDICIN E [facility] Mar 22, 2025 09:00 AM AMBULATORY - REHAB MEDICIN E [facility] Mar 24, 2025 09:00 AM AMBULATORY - REHAB MEDICIN E [facility] Apr 11, 2025 01:00 PM AMBULATORY - REHAB MEDICIN E [facility] Apr 17, 2025 10:00 AM AMBULATORY - REHAB MEDICIN E [facility] Apr 24, 2025 09:00 AM AMBULATORY - REHAB MEDICIN E [facility] Apr 28, 2025 09:30 AM [facility] May 03, 2025 02:00 PM AMBULATORY - REHAB MEDICIN E [facility] May 05, 2025 08:00 AM AM[facility]ORY [facility] [...] stry Order CBC BLOOD STAT SP ONCE [facility] Nov 30, 2024 12:00 AM Laboratory - Chemi stry Order PROTHROMBIN TIME/INR PLASMA STAT SP [facility] Nov 30, 2024 12:00 AM Laboratory - Chemi stry Order CREATININE(INCLUDES EGFR) PLASMA STAT SP ONCE [facility] Lab Results: +/- 30 days of [...] Type Comment Dec 09, 2024 08:34 AM [facility] PROTHROMBIN TIME/INR PLASMA Specimen Type: PLASMA No comment entered. Ordering Provider: STEPHEN FRANCOIS Report Released Date/Time: Dec 06, 2024 09:29 AM Reporting Lab: [facility] [id number] Performing Lab: [facility] [id number] .INR 1.1 0.8-1.1 .PT 12.9 s H 9.4-12.5 Dec 09, 2024 08:34 AM [facility] CREATININE(INCLUDES EGFR) PLASMA Sp ecimen Type: PLASMA No comment entered. Ordering Provider: STEPHEN FRANCOIS Report Released Date/Time: Dec 06, 2024 09:29 AM Reporting Lab: [facility] [id number] Performing Lab: [facility] [phone] CREATININE 0.6 mg/dL 0.5-1.0 .CREAT EGFR(CKD-EPI) >90 >60 Dec 09, 2024 08:34 AM [facility] CBC & DIFF BLOOD Specimen Type : BLOOD Comment: Automated Differential Performed Ordering Provider: STEPHEN FRANCOIS Report Released Date/Time: Dec 06, 2024 09:29 AM Reporting Lab: [facility] [id number] Performing Lab: [facility] [id number] WBC 4.4 4.0-11.0 RBC 4.42 4.00-5.40 HGB [...] 27, 2023 03:30 PM VA-TOBACCO FORMER USER [facility] Tobacco Use History This section includes a history of the smoking, or tobacco-related health factors, that were collected on or before the date of the Encounter. The data comes from the [place] facility where the Encounter took place. Date/Time Smoking Status/Tobacco Use Comment F acility Nov 27, 2023 03:30 PM VA-TOBACCO QUIT 5 TO < 15 YRS [facility] Jan 14, 2023 09:03 AM VA-TOBACCO FORMER USER [facility] Jan 14, 2023 09:03 AM VA-TOBACCO QUIT 5 TO < 15 YRS [facility] Radiology Reports: +/- 30 days of [...] 2024 07:03 AM MRI-BRAIN (P): AWAIS PADILLA [id number] -1990 F Exm Date: DEC 16, 2024@07:03 Req Phys: STEPHEN FRANCOIS Evelyn Loc: [facility] MIG WELDER CONSULT-A (Re Img Loc: MRI IMAGING Service: Unknown Screen: [place] [address] (Case [id number] COMPLETE) MRI BRAIN/BRAINSTEM W/O CONTRAST (MRI Detailed) CPT:46880 Reason for Study: Myelopathy Clinical History: Did the ordering provider speak with a travel consultant regarding this imaging exam?No Brain MRI without contrast Myelopathy LAST CREATININE 0.6 (11/22/24) Allergies: METOPROLOL (Jan 14, 2023) REGLAN (Jan 14, 2023) My pager number on record is: [phone]. The pager number/cell phone number above is [...] 16, 2024 Date Verified: DEC 16, 2024 Tutorial Laboratory Supervisor E-Sig:/ES/SUJIT DENIS MD Report: MRI BRAIN/BRAINSTEM W/O [...] Primary Interpreting Staff: SUJIT DENIS MD, RADIOLOGIST (Tutorial Laboratory Supervisor) /CDC SUJIT DENIS [facility] Dec 09, 2024 09:[address] MYELOGRAM [facility] (P): AWAIS PADILLA [id number] -1990 F Exm Date: DEC 09, 2024@09:52 Req Phys: STEPHEN FRANCOIS Pat Loc: [facility] MIG WELDER CONSULT-A (Re Img Loc: CT IMAGING Service: Unknown Screen: [place] [address] (Case [id number] COMPLETE) CT MYELOGRAM THORACIC SPINE (CT Detailed) CPT:78509 CPT Modifiers : 59 DISTINCT PROCEDURAL SERVICE [...] PLASMA .CREAT EGFR(CKD-E >90 Ref: >=60 Allergies: ([place] only) METOPROLOL (Jan 14, 2023) REGLAN (Jan 14, 2023) Defer to radiologist for final CT protocol. User Placing Order: STEPHEN FRANCOIS - Office Phone: My pager number on record is: [phone]. The pager number/cell phone number above is NOT correct for reporting critical results, I have entered my correct number below: My correct contact # for critial results is:neurosurgery on awake counselor Trainees only: Enter your staff provider's info here: Per Joint Commission Standards, by signing this diagnostic imaging request the ordering provider confirms they have considered patients age and recent imaging history. Report Status: Verified Date Reported: DEC 09, 2024 Date Verified: DEC 09, 2024 Tutorial Laboratory Supervisor E-Sig:/ES/CARITO POLANCO MD Report: CT Thoracic Spine [...] Primary Interpreting Staff: CARITO POLANCO MD, RADIOLOGIST (Tutorial Laboratory Supervisor) /CARITO TOLENTINO [facility] Dec 09, 2024 08:50 AM MYELOGRAM THORACIC (P): AWAIS PADILLA [id number] -1990 F Exm Date: DEC 09, 2024@08:50 Req Phys: STEPHEN FRANCOIS Evelyn Loc: [facility] FABRICATION MIG WELDER CONSULT-A (Re Img Loc: MAIN X-RAY Service: Unknown Screen: [place] [address] (Case [id number] COMPLETE) MYELOGRAM THORACIC VIA LUMBAR INJ(RAD Detailed) CPT:51971 Reason for Study: Eval for arachnoid web or cyst at T6 level Clinical History: myelopathy Outside hosptial Thoracic mri w wo contrast is loaded into [facility]. Please do comparison . thank you Responsible provider name and phone number to notify for critical findings if other than user placing the order and pager listed below: User placing orders pager: [phone] Neurosurgery on awake counselor LAST CREATININE 0.6 (11/22/24) Report Status: Verified Date Reported: DEC 09, 2024 Date Verified: DEC 09, 2024 Tutorial Laboratory Supervisor E-Sig:/ES/CARITO POLANCO MD Report: PROCEDURE: Lumbar puncture with fluoroscopic guidance. Thoracic myelogram. History: Myelopathy. Thoracic MRI shows dorsal lesion at T6. Comparison: Outside recent thoracic MRI exam from the [facility]. Fluoro time: 0.8 minute Dose: Air Kerma: 3.9, mGy, DAP: 3.54, dGy.cm? PROCEDURE: The patient/medical decision-maker understood the limitations, alternatives, and risks of the procedure and requested the procedure be performed. Both iMed and oral consent were obtained. A pre-procedural Time-Out was performed per [facility] policy. The patient was prepped [...] Primary Interpreting Staff: CARITO POLANCO MD, RADIOLOGIST (Tutorial Laboratory Supervisor) /CARITO TOLENTINO [facility] Encounter Notes: All associated encounter notes This section contains the clinical notes associated to the Encounter. Date/Time Encounter Note(s) Provider Source Jan 06, 2025 03:45 PM NO SHOW NOTE: LOCAL TITLE: NO SHOW/CANCELLATION CLINIC NOTE STANDARD TITLE: NO SHOW NOTE DATE OF NOTE: JAN 06, 2025@15:45 ENTRY DATE: JAN 06, 2025@15:45:38 AUTHOR: BAM CORRALES AND EXP COSIGNER: URGENCY: STATUS: COMPLETED [place] not seen for scheduled appointment due to: No Show Appointment Rescheduled: No will need to be rescheduled Please review patient chart and medications for renewal needs (if appropriate). /los/ BAM CORRALES MS, OTR/L, CLVT OCCUPATIONAL THERAPIST Signed: 01/06/2025 15:46 BAM CORRALES [facility]
--- OUTSIDE RECORDS SUMMARY | 2025-01-10 04:00 | XMS_ITS | Encounter Summary ---
Author Name [facility] [place] Organization [facility] [place] Address [address] [place] [address] Care Team Providers Care [facility] Receiving Clerk Name Role Phone LONA CINDY Primary Care Provider Unavail able Selected Encounter This section includes the information on record at [place] for the Encounter. Date/Time Encounter Type Encounter Description Reason Provider Source Jan 10, 2025 09:00 AM SELF CARE MNGMENT TRAINING OCCUPATIONAL THERAPY ICD-10-CM Z87.820 Personal history of traumatic brain injury ALBARO ROPER [facility] Encounter Template Text not used by [place] Assessments - Encounter Diagnoses This section includes the primary and secondary diagnoses documented for the Encounter. Date/Time Primary/Secondary Diagnosis Diagnosis Name Provider Source Jan 11, 2025 02:28 PM PRIMARY Personal history of traumatic brain injury ALBARO ROPER [facility] Plan of Treatment: Future Appointments (+ [...] Appointment Type Appointme nt Facility Name Jan 12, 2025 02:20 PM AMBULATORY - NONE [facility] Jan 16, 2025 10:00 AM AMBULATORY - REHAB MEDICIN [facility] Jan 18, 2025 09:00 AM AMBULATORY - REHAB MEDICIN E [facility] Jan 23, 2025 09:00 AM AMBULATORY - REHAB MEDICIN E [facility] Jan 25, 2025 09:00 AM AMBULATORY - REHAB MEDICIN [facility] Feb 01, 2025 03:00 PM AMBULATORY - REHAB MEDICIN E [facility] February 21, 2025 09:00 AM [facility] February 21, 2025 10:00 AM AMBULATORY - [facility]IC[facility] February 23, 2025 01:00 PM AMBULATORY - REHAB MEDICIN E [facility] March 14, 2025 02:00 PM AMBULATORY - REHAB MEDICIN [facility] Mar 20, 2025 10:30 AM AMBULATORY - REHAB MEDICIN [facility] Mar 22, 2025 09:00 AM AMBULATORY - REHAB MEDICIN [facility] Mar 24, 2025 09:00 AM AMBULATORY - REHAB MEDICIN [facility] Apr 11, 2025 01:00 PM AMBULATORY - REHAB MEDICIN [facility] Apr 17, 2025 10:00 AM AMBULATORY - REHAB MEDICIN [facility] Apr 24, 2025 09:00 AM AMBULATORY - REHAB MEDICIN [facility] Apr 28, 2025 09:30 AM AMBULATORY - SURGERY [facility] May 03, 2025 02:00 PM AMBULATORY - REHAB MEDICIN [facility] May 05, 2025 08:00 AM AMBULATORY - REHAB MEDICIN [facility] May 15, 2025 10:00 AM AMBULATORY - REHAB MEDICIN [facility] Active, Pending, and Scheduled Orders [...] The data comes from all [place] treatment [facility]. Test Date/Time Test Type Test Details Facility Name Nov 30, 2024 12:00 AM Laboratory - Chemi stry Order CBC BLOOD STAT SP ONCE [facility] Nov 30, 2024 12:00 AM Laboratory - Chemi stry Order CREATININE(INCLUDES EGFR) PLASMA STAT SP [facility]CE [facility] Nov 30, 2024 12:00 AM Laboratory - Chemi stry Order PROTHROMBIN TIME/INR PLASMA STAT SP [facility] Social History: Smoking Status (Most current) [...] Facil ity Nov 27, 2023 03:30 PM [place]-TOBACCO FORMER USER [facility] Tobacco Use History This section includes a history of the smoking, or tobacco-related health factors, that were collected on or before the date of the Encounter. The data comes from the [place] facility where the Encounter took place. Date/Time Smoking Status/Tobacco Use Comment F acility Nov 27, 2023 03:30 PM VA-TOBACCO QUIT 5 TO < [address] [facility] Jan 14, 2023 09:03 AM VA-TOBACCO FORMER USER [facility] Jan 14, 2023 09:03 AM VA-TOBACCO QUIT 5 TO < [address] [facility] Radiology Reports: +/- 30 days of [...] 2024 07:03 AM MRI-BRAIN (P): AWAIS PADILLA [id number] -1990 F Exm Date: DEC 16, 2024@07:03 Req Phys: STEPHEN FRANCOIS Loc: [facility] STANDARDS ENGINEER CONSULT-A (Re Img Loc: MRI IMAGING Service: Unknown [place]: [place] [address] (Case [id number] COMPLETE) MRI BRAIN/BRAINSTEM W/O CONTRAST (MRI Detailed) CPT:54824 Reason for Study: Myelopathy Clinical History: Did the ordering provider speak with a independent marketing consultant regarding this imaging exam?No Brain MRI without contrast Myelopathy LAST CREATININE 0.6 (11/22/24) Allergies: METOPROLOL (Jan 14, 2023) REGLAN (Jan 14, 2023) My pager number on record is: [phone]. The pager number/cell phone number above is [...] 16, 2024 Date Verified: DEC 16, 2024 [employer] E-Sig:/ES/SUJIT DENIS MD Report: MRI BRAIN/BRAINSTEM W/O [...] Primary Interpreting Staff: SUJIT DENIS MD, RADIOLOGIST ([employer]) /[facility] SUJIT DENIS [facility] Encounter Notes: All associated encounter notes This section contains the clinical notes associated to the Encounter. Date/Time Encounter Note(s) Provider Source Jan 10, 2025 09:00 AM OCCUPATIONAL THERAPY CONSULT: LOCAL TITLE: OCCUPATIONAL THERAPY CONSULT STANDARD TITLE: OCCUPATIONAL THERAPY CONSULT DATE OF NOTE: JAN 10, 2025@09:00 ENTRY DATE: JAN 10, 2025@09:13:59 AUTHOR: ALBARO ROPER COSIGNER: URGENCY: STATUS: COMPLETED OCCUPATIONAL THERAPY TELEHEALTH HOME EVALUATION Referring provider: CINDY ZAMORANO Diagnosis for which patient is referred to OT: Personal History of Traumatic Brain Injury (ICD-10-CM Z87.820) In-home assessment required for: SG Precautions/Restrictions: NA Encounter: -OT evaluation (low complexity): 15 min -Self care management training (1): 20 min ASSESSMENT: (At the time of evaluation) Rachel is a 34 yo female referred for an OT home evaluation 11/20 to: SG consideration. Rachel arrives laying in bed d/t recent illness, with her Paulo present. Following discussion, rachel is hoping to get approved for a SG to allow her access into their fully finished basement to care for her young children and in case of a bad storm. Paulo adds that due to weakness and balance issues his struggles with going up and down the basement stairs. Their kitchen, rachel's bedroom and primary bathroom are located on the main level. Paint Stockman educated and her on [facility]'s criteria for SG. With all of rachel's needs met on the main level, rachel does not appear appropriate for a SG into the basement. Vet/ are disappointed but verbalize understanding. Paint Stockman recommended looking into other local/non-VA programs for any resources available (like [email or web address].org) which vet/ are interested to explore. Moreover, both rachel and her are quite disappointed with rachel's recent ER visit which she had to complete on her own. In addition to receiving subpar treatment, rachel reported the ER note following that visit not being true to what actually happened. Paint Stockman encouraged rachel/her to reach out to a patient advocate to address their concerns. No further OT needs identified at this time. CURRENT MEDICAL HISTORY: Exposure to potentially hazardous substaTraumatic brain injury (SCT 670785880) Temporomandibular joint disorder (SCT 41Unintentional weight loss (SCT 646883588) Mood disorder (SCT 48407550) Headache (SCT 82794270) Family history: Myocardial infarction atHistory of cerebrospinal fluid leak (ICD-10-CM R69.) History of gestational diabetes mellitusGeneralized enlarged lymph nodes ([facility] [id number]) Splenomegaly (SCT 44138987) Myelopathy ([facility] [id number]) PLAN: No further OT needs at this time, discharge from OT. SHORT TERM GOAL to be met by end of session: Hollister will engage in an OT evaluation to improve safety and independence with use of adaptive equipment. - MET OT EDUCATION: -Education provided on SG criteria when SG are provided only to help access medically necessary areas, like bedroom, bathroom, and kitchen. -Discussed other AE available but vet's needs appear to be fully met PATIENT EDUCATION ON TREATMENT PLAN: Patient, Family indicates readiness to learn, verbalizes understanding, agreement and satisfaction with the treatment plan. Denies further questions. SUBJECTIVE/OBJECTIVE: Vet reports difficulty with managing basement stairs due to LE weakness and balance concerns. CONTEXT SOCIAL HISTORY/HOME ENVIRONMENT: Lives with: and children Primary Support System: family Lives in: 1-level house with finished basement HOUSE LAYOUT: main level: -living room, kitchen, vet/'s bedroom, 2 bedrooms for kids, yael and jaimie bathroom fully finished basement: -2 more bedrooms, full bath, storm residential ENTRANCE: no issues reported VETERANS CURRENT LEVEL OF INDEPENDENCE: Vet reports: -vet's assists as needed with ADLs (washing and dressing of LE, hair washing, transfers) -Mobility: -In-home: -cane is more difficult to use, rollator is available -Community: -rollator OWNED ADAPTIVE EQUIPMENT: -cane, rollator -shower chair -grab bars CVT Documentation- Visit conducted by synchronous telehealth. verbal consent obtained. Location/emergency number confirmed. Environment surveyed and all participants identified. Virtual conference room locked. Confirmed the following prior to start of visit: - identified by Full name and Full Social Security number/Date of . - states he/she is in a safe and private environment suitable for the Telehealth encounter. -Visit conducted by telehealth into the home using: - Laptop EMAIL ADDRESS - [email or web address] Troubleshooting required during visit: initial sound issues on provider's end Others present: Paulo Location of patient during session: [id number] [facility] [place] [address] Emergency phone number (k447): [phone] Veterans Crisis Line: & press #1 or text [phone] [facility] National Telehealth Technology Help Desk (NTTHD): [phone] or [phone]. OCCUPATIONAL THERAPY EVALUATION COMPLEXITY Identifying and reporting the complexity level of an evaluation focuses on the first three of these factors--profile and history, assessment and determination of deficits, and clinical decision making. These three factors must be scored and defensible documentation written to support the choice of a level. (Information taken from: https://www.aota.org) PROFILE AND HISTORY (including chart view) Brief history of medical and/or therapy records relating to the presenting problem (low complexity) ASSESSMENT & PERFORMANCE DEFICITS (select all that apply): Physical: weakness, balance issues 1-3 performance deficits (Low complexity) LEVEL OF CLINICAL DECISION MAKING Comorbidities affect occupational performance: Yes (moderate or high complexity) Modifications of tasks or assistance to enable completion of evaluation: Not necessary (Low complexity) Problem-focused assessment(s), consideration of a limited number of treatment options, presents with no comorbidities and modification of tasks or assistance is not necessary.(Low complexity) LOW COMPLEXITY Brief history of medical/or therapy records relating to the presenting problem. An assessment(s) that identifies 1-3 performance deficits that result in activity limitation and/or participating restrictions. Includes analysis of the occupational profile, analysis of date from problem- focused assessment(s), and consideration of a limited number of treatment options. Patient presents with no comorbidities that affect occupational performance. Modification of tasks or assistance with assessment(s) is not necessary to enable completion of evaluation component. /los/ TORRES BRITTON/Nikita OCCUPATIONAL THERAPIST Signed: 01/16/2025 16:[address] [facility]
--- OUTSIDE RECORDS SUMMARY | 2025-01-16 05:00 | XMS_ITS | Encounter Summary ---
Author Name [facility] [place] Organization [facility] [place] Address [address] [place] [id number] Care Team Providers Care Assistant Professor Name Role Phone LONA, CINDY Primary Care Provider Unavail able Selected Encounter This section includes the information on record at [place] for the Encounter. Date/Time Encounter Type Encounter Description Reason Provider Source Jan 16, 2025 10:00 AM PSYTX W PT 45 MINUTES PAIN CLINIC ICD-10-CM F43.10 Post-traumatic stress disorder, unspecified JANINA BRAMBILA [place] Encounter Template Text not used by [place] Assessments - Encounter Diagnoses This section includes the primary and secondary diagnoses documented for the Encounter. Date/Time Primary/Secondary Diagnosis Diagnosis Name Provider Source Jan 16, 2025 01:03 PM PRIMARY Post-traumatic stress disorder, unspecified JANINA BRAMBILA [facility] Jan 16, 2025 01:03 PM SECONDARY Major depressive disorder, recurrent, unspecified JANINA BRAMBILA [facility] Jan 16, 2025 01:03 PM SECONDARY Other chronic pain JANINA BRAMBILA [facility] Jan 16, 2025 01:03 PM SECONDARY Personal history of traumatic brain injury JANINA BRAMBILA [facility] Plan of Treatment: Future Appointments (+ 6 months) and Future Tests (+/- 45 days) The Plan of Treatment section includes future care activities for the patient [facility] [place] [facility] This section includes future appointments and future orders which are active, pending or scheduled. Future Appointments This section includes appointments that were scheduled to occur 6 months from the date of the Encounter, up to a maximum of 20 appointments. The data comes from all [place] treatment facilities. Appointment Date/Time Appointment Type Appointme nt Facility Name Jan 18, 2025 09:00 AM AMBULATORY - REHAB MEDICIN E [facility] Jan 23, 2025 09:00 AM AMBULATORY - REHAB MEDICIN E [facility] Jan 25, 2025 09:00 AM AMBULATORY - REHAB MEDICIN E [facility] Feb 01, 2025 03:00 PM AMBULATORY - REHAB MEDICIN E [facility] February 21, 2025 09:00 AM [place]ORY - [place]ONE [place] [facility] February 21, 2025 10:00 AM AMBULATORY - MEDICINE [facility] February 23, 2025 01:00 PM AMBULATORY - REHAB MEDICIN E [facility] March 14, 2025 02:00 PM AMBULATORY - REHAB MEDICIN E [facility] Mar 20, 2025 10:30 AM AMBULATORY - REHAB MEDICIN E [facility] Mar 22, 2025 09:00 AM AMBULATORY - REHAB MEDICIN E [facility] Mar 24, 2025 09:00 AM AMBULATORY - REHAB MEDICIN E [facility] Apr 11, 2025 01:00 PM AMBULATORY - REHAB MEDICIN E [facility] Apr 17, 2025 10:00 AM AMBULATORY - REHAB MEDICIN E [facility] Apr 24, 2025 09:00 AM AMBULATORY - REHAB MEDICIN E [facility] Apr 28, 2025 09:30 AM AMBULATORY - SURGERY [facility] May 03, 2025 02:00 PM AMBULATORY - REHAB MEDICIN E [facility] May 05, 2025 08:00 AM AMBULATORY - REHAB MEDICIN E [facility] May 15, 2025 10:00 AM AMBULATORY - REHAB MEDICIN E [facility] May 15, 2025 01:00 PM AMBULATORY - REHAB MEDICIN E [facility] May 29, 2025 11:00 AM AMBULATORY - REHAB MEDICIN E [facility] Social History: Smoking Status (Most current) and Tobacco Use (All prior to encounter date) This section includes the most current, and the historical, smoking and tobacco- related health factors from the [place] facility where the Encounter took place. Current Smoking Status This section includes the most current smoking, or tobacco-related health factor, from the [facility] where the Encounter took place. Date/Time Current Smoking Status Comment Srini zaldivar Nov 27, 2023 03:30 PM VA-TOBACCO FORMER USER [facility] Tobacco Use History This section includes a history of the smoking, or tobacco-related health factors, that were collected on or before the date of the Encounter. The data comes from the [place] facility where the Encounter took place. Date/Time Smoking Status/Tobacco Use Comment F acility Nov 27, 2023 03:30 PM VA-TOBACCO QUIT 5 TO < 15 YRS [facility] Jan 14, 2023 09:03 AM VA-TOBACCO FORMER USER [facility] Jan 14, 2023 09:03 AM VA-TOBACCO QUIT 5 TO < 15 YRS [facility] Encounter Notes: All associated encounter notes This section contains the clinical notes associated to the Encounter. Date/Time Encounter Note(s) Provider Source Jan 16, 2025 10:00 AM PHYSICAL MEDICINE REHAB NOTE: LOCAL TITLE: REHAB PSYCHOLOGY PROGRESS NOTE STANDARD TITLE: PHYSICAL MEDICINE REHAB NOTE DATE OF NOTE: JAN 16, 2025@10:00 ENTRY DATE: JAN 16, 2025@12:58:20 AUTHOR: JANINA BRAMBILA EXP COSIGNER: URGENCY: STATUS: COMPLETED [facility] - Individual pain psychology visit TIME: Psychotherapy x 50 minutes Informed Consent: Informed consent for treatment and confidentiality and limits and benefits of treatment were reviewed with patient and they indicated understanding and agreement in the first session. Visit conducted by synchronous telehealth. Dawson verbal consent obtained. Location/emergency number confirmed. Environment surveyed and all participants identified. Virtual conference room locked. SESSION #1: Faviola is ill today. She was diagnosed with pneumonia in a community ED and is still recovering. She will contact her PCP for f/u. We reviewed the pain psychology intake and recommendations. voiced understanding and asked questions appropriately. We watched the Understanding Pain in Less than 5 Minutes video. Dawson voiced understanding of how concepts apply to her. She provided several examples with a focus on factors that contribute to sensitizing her nervous system. We discussed acute vs. chronic pain and pain as an alarm system. We spent further time reviewing the role of PTSD in the experience of pain. found this information to be very validating. We will discuss pain psychology tx options at our next appointment. We discussed RTC plan. MENTAL STATUS: Participant was alert, oriented. Pain behaviors demonstrated: No overt; mild postural changes Mood: Dysphoric; not in acute distress Affect: Congruent Access: engaged, not defensive, forthcoming Participant response to discussion: cooperative, motivated SUICIDE RISK ASSESSMENT: There was no evidence of SI/HI, intent, or plan. Suicide risk factors include: - chronic health [...] - support through medical/mental health care relationships Based on risk and protective factors, is considered to be at LOW acute risk and INTERMEDIATE chronic risk for committing suicidal acts/self-harm at this time. PATIENT EDUCATION AND UNDERSTANDING: indicated readiness to learn for the education provided during this session as noted above. The also indicated understanding by asking questions and making appropriate comments. PROGRESS TOWARD GOALS: Goals TBD. DIAGNOSIS: (per chart) #1 Other chronic pain #2 PTSD #3 Major depressive disorder, recurrent, unspecified #4 Anxiety disorder, unspecified #5 h/o TBI PLAN: The Patient is in agreement with the treatment goals and plan. -Continue with pain psychology and determine treatment modality and goals at next appointment. -RTC 1 - 2 weeks /los/ JANINA BRAMBILA, PHD STAFF PSYCHOLOGIST Signed: 01/16/2025 13:03 JANINA BRAMBILA [facility]
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
--- OUTSIDE RECORDS SUMMARY | 2025-01-25 04:00 | XMS_ITS | Encounter Summary ---
Author Name [facility] (MD[facility] Organization [facility] Address [address] [place] [address] Care Team Providers Care Creative Lead Name Role Phone CINDY ZAMORANO Primary Care Provider Unavail able Selected Encounter This section includes the information on record at MD for the Encounter. Date/Time Encounter Type Encounter Description Reason Provider Source Jan 25, 2025 09:00 AM PSYCH DIAGNOSTIC EVALUATION CAREGIVER SUPPORT PROGRAM ICD-10-CM Z87.820 Personal history of traumatic brain injury THOMAS DOMINGUEZ [place] Encounter Template Text not used by MD Assessments - Encounter Diagnoses This section includes the primary and secondary diagnoses documented for the Encounter. Date/Time Primary/Secondary Diagnosis Diagnosis Name Provider Source Jan 25, 2025 01:16 PM PRIMARY Personal history of traumatic brain injury THOMAS DOMINGUEZ [facility] Jan 25, 2025 01:16 PM SECONDARY Headache, unspecified THOMAS DOMINGUEZ [facility] Jan 25, 2025 01:16 PM SECONDARY Myelopathy in diseases classified elsewhere THOMAS DOMINGUEZ [facility] Jan 25, 2025 01:16 PM SECONDARY Unspecified mood [affective] disorder THOMAS DOMINGUEZ [facility] Jan 25, 2025 01:16 PM SECONDARY Unspecified TMJ joint disorder, unspecified side THOMAS DOMINGUEZ [facility] Plan of Treatment: Future Appointments (+ 6 months) and Future Tests (+/- 45 days) The Plan of Treatment section includes future care activities for the patient [facility] This section includes future appointments and future orders which are active, pending or scheduled. Future Appointments This section includes appointments that were scheduled to occur 6 months from the date of the Encounter, up to a maximum of 20 appointments. The data comes from all [facility]. Appointment Date/Time Appointment Type Appointme nt Facility Name Feb 01, 2025 03:00 PM AMBULATORY - REHAB MEDICIN E [facility] February 21, 2025 09:00 AM [facility] February 21, 2025 10:00 AM AMBULATORY - MEDICINE [facility] February 23, 2025 01:00 PM AMBULATORY - REHAB MEDICIN E [facility] March 14, 2025 02:00 PM AMBULATORY - REHAB MEDICIN E [facility] Mar 20, 2025 10:30 AM AMBULATORY - REHAB MEDICIN E [facility] Mar 22, 2025 09:00 AM AMBULATORY - REHAB MEDICIN E [facility] Mar 24, 2025 09:00 AM AMBULATORY - REHAB MEDICIN E [facility] Apr 11, 2025 01:00 PM AMBULATORY - REHAB MEDICIN E [facility] Apr 17, 2025 10:00 AM AMBULATORY - REHAB MEDICIN E [facility] Apr 24, 2025 09:00 AM AMBULATORY - REHAB MEDICIN E [facility] Apr 28, 2025 09:30 AM AMBULATORY - SURGERY [facility] May 03, 2025 02:00 PM AMBULATORY - REHAB MEDICIN E [facility] May 05, 2025 08:00 AM AMBULATORY - REHAB MEDICIN E [facility] May 15, 2025 10:00 AM AMBULATORY - REHAB MEDICIN E [facility] May 15, 2025 01:00 PM AMBULATORY - REHAB MEDICIN E [facility] May 29, 2025 11:00 AM AMBULATORY - REHAB MEDICIN E [facility] May 30, 2025 01:45 PM AMBULATORY - NONE [facility] Jul 14, 2025 10:30 AM AMBULATORY - REHAB MEDICIN E [facility] Lab Results: +/- 30 days of the encounter This section includes the Chemistry and Hematology Lab Results on record with MD for the patient. Radiology Reports and Pathology Reports are provided separately, in subsequent sections. Lab Results This section contains the Chemistry/Hematology Results that were resulted 30 days before or 30 daysafter the date of the Encounter. Date/Time Source Result Type Result - Unit Interpretation Reference Range Specimen Type Comment February 21, 2025 09:08 AM [facility] COMPREHENSIVE METABOLIC PANEL+MG PLASMA Specim en Type: PLASMA No comment entered. Ordering Provider: KURT NEWELL Report Released Date/Time: Nov 22, 2024 10:51 AM Reporting Lab: [facility] [id number] Performing Lab: [facility] [id number] CREATININE 0.6 mg/dL 0.5-1.0 UREA NITROGEN 10 [...] >90 >60 February 21, 2025 09:08 AM [facility] CBC & DIFF BLOOD Specimen Type: BLOOD Comment: Automated Differential Performed Ordering Provider: KURT NEWELL Report Released Date/Time: Nov 22, 2024 10:51 AM Reporting Lab: [facility] [id number] Performing Lab: [facility] [id number] WBC 6.6 4.0-11.0 RBC 4.66 4.00-5.40 HGB [...] and tobacco- related health factors from the MD facility where the Encounter took place. Current Smoking Status This section includes the most current smoking, or tobacco-related health factor, from the MD facility where the Encounter took place. Date/Time Current Smoking Status Comment Srini ity Nov 27, 2023 03:30 PM VA-TOBACCO QUIT 5 TO < 15 YRS [facility] Tobacco Use History This section includes a history of the smoking, or tobacco-related health factors, that were collected on or before the date of the Encounter. The data comes from the MD facility where the Encounter took place. Date/Time Smoking Status/Tobacco Use Comment F acility Nov 27, 2023 03:30 PM VA-TOBACCO QUIT 5 TO < 15 YRS [facility] Jan 14, 2023 09:03 AM VA-TOBACCO FORMER USER [facility] Jan 14, 2023 09:03 AM VA-TOBACCO QUIT 5 TO < 15 YRS [facility] Encounter Notes: All associated encounter notes This section contains the clinical notes associated to the Encounter. Date/Time Encounter Note(s) Provider Source Jan 25, 2025 09:00 AM CAREGIVER CERTIFIC ATE: LOCAL TITLE: [facility] [employer] FUNCTIONAL ASSESSMENT INSTRUMENT STANDARD TITLE: CAREGIVER CERTIFICATE DATE OF NOTE: JAN 25, 2025@09:00 ENTRY DATE: JAN 25, 2025@11:57:05 AUTHOR: SONYA SRER: URGENCY: STATUS: COMPLETED FUNCTIONAL ASSESSMENT INSTRUMENT The Program of Comprehensive Assistance for Family Caregivers (PCAFC) provides services and additional benefits to approved and designated Family Caregivers of eligible Veterans or service members who are in need of personal care services for a minimum of six continuous months based on any one of the following: - An inability to perform one or more activities of daily living; - A need for supervision or protection based on symptoms or residuals of neurological or other impairment or injury; or - A need for regular or extensive instruction or supervision without which the ability of the to function in daily life would be seriously impaired. Assessment of the need for personal care services is just one piece of the overall application process. The [employer] Functional Assessment Instrument (VFAI) captures the or seafood and service meat manager's functional needs, as they relate to the requirements for PCAFC. The assessment should only be used with Veterans or service members who have applied to or are participating in PCAFC and a consult has been placed for this assessment by Caregiver Support Program Staff. The author completing this assessment must be in compliance with all required Caregiver Support Program and VA trainings. Method of contact: Telehealth/ VA Video Connect Modality of Care: Video Telehealth Time Spent: 90 minutes Patient Contact Details: Best contact number for backup/emergency communication with patient: Patient Location/Surroundings During Visit: Patient location during visit: Home [id number] [phone] Others present for visit with patient's consent: Name: Paulo Padilla: Primary Caregiver and spouse Patient confirms location is safe and private for visit. Telehealth Disclosure: Visit conducted by synchronous telehealth. Patient verbal consent obtained. Location/emergency number confirmed. Environment surveyed and all participants identified. Virtual conference room locked. VFAI: PART A EATING (1) Eating: Set-up or clean-up assistance Defined as: The ability to use suitable utensils to bring food and/or liquid to the mouth and swallow food and/or liquid once the meal is placed before the person. Comments/additional information: Aleks reports due to her tremors and weakness in her hands; CG must cut up her food. Aleks is able to feed herself. Aleks adds that she attempted to use a knife to cut meat; the knife fell out of her hands and landed on the floor next to her child's foot. GROOMING (2a) Oral hygiene: Independent Defined as: The ability to use suitable items to clean teeth. [Dentures (if applicable): the ability to insert and remove dentures into and from the mouth, and manage denture soaking and rinsing with use of equipment.] (2b) Wash upper body: Person does not usually do this activity Defined as: The ability to wash, rinse, and dry the face, hands, chest, and arms while sitting in a chair or bed. Comments/additional information: and caregiver report that aleks can physically brush her teeth. reports she lacks motivation for grooming tasks due to pain, mental health. Caregiver reports he provide verbal cues and motivation for aleks to complete tasks. BATHING (3) Shower/bathe self: Partial/moderate assistance Defined as: The ability to bathe self, including washing, rinsing, and drying self. Does not include transferring in/out of tub/shower. Comments/additional information: [employer] and Caregiver report aleks has a full and complete shower on Tuesdays and when their youngest son is at pre-school. Suncook reports she is unable to wash her hair due to limited upper extremity mobility. [employer]cook adds that due to pain and balance issues; she is unable to wash and dry her lower body. reports she is unable to shave her legs. [employer] and caregiver report aleks will soak in her whirlpool bathtub daily with Epsom salts for pain relief and clean up. Caregiver reports aleks needs assistance with transfer in and out of the tub and in and out of the shower. Aleks does have a shower chair and hand held shower head. DRESSING AND UNDRESSING (4a) Upper body dressing: Partial/moderate assistance Defined as: The ability to dress and undress above the waist, including fasteners (if applicable). (4b) Lower body dressing: Substantial/maximal assistance Defined as: The ability to dress and undress below the waist, including fasteners; does not include footwear. (4c) Putting on/taking off footwear: Substantial/maximal assistance Defined as: The ability to put on and take off socks and shoes, or other footwear that is appropriate for safe mobility, including fasteners (if applicable). Comments/additional information: Aleks reports due to limited mobility in her upper extremities; CG assists with getting 's arms through the shirts and pulling down the shirt. When must wear a bra; CG assists with fastening and positioning the bra. Suncook reports she will sit on the chair for lower body dressing; CG will place her feet in the holes of her underwear and pants. CG will pull the pants up to her knees. [employer] reports CG will assist with standing up, CG will hold onto while pulls up her underwear and pants. reports she will wear disposal briefs when she has her menstrual cycle. adds that she is incontinent at times; especially, when she is sick. [employer] reports CG assist with putting on socks and shoes. reports she wear pull on boots; will hold onto CG while CG pulls on the boots. TOILETING (5) Toileting hygiene: Supervision or touching assistance Defined as: The ability to maintain perineal/menstrual hygiene and adjust clothes before and after voiding or having a bowel movement. If managing an ostomy, include wiping the opening but not managing equipment. Comments/additional information: reports she needs assist with transferring on and off the toilet due to balance and posture. reports she is independent most of the time with clean-up; however, if she feels she is unable to fully clean herself up after a bowel movement; she will request CG to help her into the shower to wash off. Suncook reports she is not comfortable with CG wiping her after a bowel movement. OT consult dated 12/28/2024: please refer to note for full details. Adding initial impression: Initial Assessment: Pt presenting with barriers to ADL/ IADL, community, social/ leisure, and vocational functioning as a result of various factors including widespread pain, weakness, and impaired balance. Rachel lives with her spouse and 4 children in a [facility], reports a sedentary lifestyle with significant time [...] and bottom up approaches to pain treatment. PROSTHETICS (6) Prosthetics (Use of Assistive Devices): Not applicable - does not use prosthetics or assistive devices Defined as: The ability to adjust special prosthetic or orthopedic appliances. The adjustment of appliances that any person (with or without a disability) would need assistance with should not be scored (for example, supports, belts, lacing at back, etc.). Comments/additional information: [employer] reports no prosthetic devices at this time. MOBILITY (POSITIONING/TRANSFERS) (7a) Roll left and right: Independent Defined as: The ability to roll from lying on back to left and right side, and return to lying on back. (7b) Sit to lying: Independent Defined as: The ability to move from sitting on side of bed to lying flat on the bed. (7c) Lying to sitting on side of bed: Independent Defined as: The ability to move from lying on the back to sitting on the side of the bed with feet flat on the floor and with no back support. (7d) Sit to stand: Partial/moderate assistance Defined as: The ability to come to a standing position from sitting in a chair, wheelchair, or on the side of the bed. (7e) Chair/[id number]-gt-[id number] transfer: Partial/moderate assistance Defined as: The ability to transfer to and from a bed to a chair (or wheelchair). (7f) Toilet transfer: Partial/moderate assistance Defined as: The ability to get on and off a toilet or commode. Comments/additional information: reports Caregiver bought her a new bed that the upper and lower areas of the bed can be raised and lower. reports with the raising of the head of the bed; she is more independent with sitting up. [employer] reports CG assists with standing up from seated position due to dizziness and pain. reports CG assists with toilet transfers and transfers in and out of a chair and bed. MOBILITY (WALKING, MANUAL WHEELCHAIR, MOTORIZED WHEELCHAIR/SCOOTER) (8) Mobility: Person walks WALKING (9a) Walk 10 feet: Independent Defined as: Once standing, the ability to walk at least 10 feet in a room, corridor, or similar space. (9b) Walk 50 feet with two turns: Independent Defined as: Once standing, the ability to walk at least 50 feet and make two turns. (9c) Walk 150 feet: Independent Defined as: Once standing, the ability to walk at least 150 feet in a corridor or similar space. (9d) Walk 10 feet on uneven surfaces: Independent Defined as: The ability to walk 10 feet on uneven or sloping surfaces (indoor or outdoor) such as turf or gravel. (9e) 1 step (curb): Supervision or touching assistance Defined as: The ability to go up and down a curb and/or up and down one step. (9f) 4 steps: Partial/moderate assistance Defined as: The ability to go up and down four steps with or without a rail. (9g) 12 steps: Substantial/maximal assistance Defined as: The ability to go up and down 12 steps with or without a rail. (9h) Picking up object: Dependent Defined as: The ability to bend/stoop from a standing position to vegetable picker a small object, such as a spoon, from the floor. (9i) Walk indoors: Independent Defined as: The ability to walk from room to room, around furniture and other obstacles. (9j) Carry something in both hands: Dependent Defined as: The ability to carry something in both hands while walking indoors (i.e., several dishes, light laundry basket, tray with food). (9k) Walk for 15 minutes: Partial/moderate assistance Defined as: The ability to walk without stopping or resting (i.e., through a department store, supermarket). (9l) Walk across a street: Person does not usually do this activity Defined as: The ability to cross a street before light turns red. Comments/additional information: reports she was issued a walker with a seat. [employer] reports she is using the walker for all ambulation due to weakness, fatigue and balance. reports she is able to walk with a walker on uneven services. adds that she must take frequent rest breaks for longer distances. [employer] reports CG assists aleks with curbs and steps. Aleks reports there are 6 steps to enter the house and reports the process: Paulo will carry my walker to the top (or bottom) of the steps, then he'll help me up and down the steps. I'm mostly putting all my weight on him. Aleks adds that she must complete 1 step at a time and put both feet on each step before going up another step. Aleks reports she is unable to go downstairs to their basement due the amount of steps. Aleks was evaluated for a stair glide on 01/10/2025 and not approved OT EDUCATION: -Education provided on SG criteria when SG are provided only to help access medically necessary areas, like bedroom, bathroom, and kitchen. -Discussed other AE available but vet's needs appear to be fully met Aleks had PT consult on 12/23/2024 and follow up PT sessions. Please refer to PT consult dated 12/23/2024 for full details. Please refer to PT f/u appt: 01/18/2025. Per [facility] per radiology report: 12/16/2024 normal [...] Primary Interpreting Staff: CARITO POLANCO MD, RADIOLOGIST (Cigar Making Machine Supervisor) VFAI: PART B MEDICATION MANAGEMENT (1a) Does the person take any medication(s)? Yes (1b) Does the person need assistance with medication management? Needs visual or verbal reminders Comments/additional information: Caregiver reports does not remember when and how much medication to take. CG adds that he provides verbal reminders/cues for to take her medication at the correct times. SELF-PRESERVATION AND SUPERVISION (2) Does the person have the judgment and physical ability to cope, make appropriate decisions and take action in a changing environment or a potentially harmful situation? Minimal (verbal/physical prompts for preservation) (3) Is this person at risk of self-neglect? Yes Details: CG reports due to 's pain and mental health concerns; is not motivated to complete self-cares, eat or drink (4) Person has the following risk factors: Behaviors that pose a threat of harm to self or others Hygiene that may compromise health Impairment of orientation, memory, reasoning, and/or judgment Inability to manage medications or to seek medical treatment that may threaten health or safety (5) Is this person at risk of neglect, abuse, or exploitation by another person? Yes Details: reports she relies on CG and children to assist with physical functioning, medication management, finances and meals (6) What type of support does the person need in the home to remain safe, such as assistance or supervision with activities that require remembering, decision-making, or judgment? Sometimes the person can be left alone for an hour or two. (7) What type of support does the person need away from home to remain safe, such as assistance or supervision with activities that require remembering, decision-making, or judgment? Someone always needs to be with the person to help with remembering, decision making or judgment when away from home. Comments/additional information: [employer] has a complex mental health history with past suicide attempts and ideation. PROTECTION (8a) Delusions/Hallucinations: Person engages in markedly inappropriate behavior that affects his/her/their daily functioning and social interactions. Behavior characterized by a radical change in personality and a distorted or diminished sense of reality. Yes (8b) Type(s) of psychotic symptoms displayed: Delusions (8c) Type of intervention needed: Needs redirection (responds to redirection) (8d) Frequency of intervention needed: Two times per week (9a) Agitation: Person has a tendency, or would without an intervention, to suddenly or quickly become upset or violent. Yes (9b) Type(s) of agitation symptoms displayed: Easily angered Easily frustrated (9c) Type of intervention needed: Needs redirection (responds to redirection) (9d) Frequency of intervention needed: Two times per week (10a) Impulsivity: Person has a propensity, or would without an intervention, for sudden or spontaneous decisions or actions. Yes (10b) Type(s) of impulsive behaviors displayed: Disregard for personal safety Financial (10c) Type of intervention needed: Needs redirection (responds to redirection) (10d) Frequency of intervention needed: One time per week (11a) Wandering: Person will, or would without an intervention, leave an area or group without telling others or depart from the supervision of others unexpectedly, resulting in increased vulnerability. No Comments/additional information: and Caregiver report aleks does have delusions which require CG to provide redirection and reality checking. adds that she is easily frustrated and angered due to her decrease in physical functioning and daily pain. Caregiver reports aleks does not have access to their bank accounts due to previous impulsive spending and not remembering that she purchased items. INSTRUCTION (12) Person requires stand-by cueing, supervision, or step by step instructions from a caregiver in order to function in daily life: Yes (13) Person requires CONTINUOUS stand-by cueing, supervision, or step by step instructions from a caregiver in order to function in daily life: No Comments/additional information: Caregiver reports aleks needs daily reminders and cues for personal cares, medications, eating, drinking, changing into clothes. [employer] reports for her PT HEP, I'm supposed to log the time I'm out of bed. CG reports aleks requires reminders and motivation to get out of bed and work on HEP. SELF-DIRECTION (14) Can this person identify their own needs? No (15) Can this person provide and/or arrange for their health and safety? No Comments/additional information: Aleks reports having mild TBI, memory concerns, mental health concerns which impact her ability to complete self-cares and basic functioning for safe living. CG reports he must motivate to eat and drink; as will not remember meal times or refuse. [employer] has history of suicide attempts. Aleks did look to CG when answering questions about safety; I'd call 911, right? CG adds that aleks is unable to care for their children on her own; adding that she is not able to make meals, assist children with personal care tasks. Both and CG report aleks would be unable to physically assist their children in case of an emergency. Aleks adds that she does not drive often due to dizziness and fatigue. Aleks is engaged in rehab psychology, TBI team, PT/OT, Pain clinic, neurology and Primary Care. /los/ Thomas Sr [facility] Slip Cover Seamstress Signed: 01/25/2025 13:18 FERNANDEZ SR EA [facility]
--- OUTSIDE RECORDS SUMMARY | 2025-02-01 10:00 | XMS_ITS | Encounter Summary ---
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 Date/Time Encounter Type Encounter Description Reason Pro vider Source Feb 01, 2025 03:00 PM Outpatient Encounter OCCUPATIONAL THERAPY IHE Encounter Template Text not used by [place] Plan of Treatment: Future Appointments (+ 6 months) and Future Tests (+/- 45 days) The Plan of Treatment section includes future care activities for the patient from all [place] treatmentfacilities. This section includes future appointments and future orders which are active, pending or scheduled. Future Appointments This section includes appointments that were scheduled to occur 6 months from the date of the Encounter, up to a maximum of 20 appointments. The data comes from all [place] treatment facilities. Appointment Date/Time Appointment Type Appointme nt Facility Name February 21, 2025 09:00 AM AMBULATORY - NONE CHRISTIANAnette GARCIA [facility] February 21, 2025 10:00 AM AMBULATORY - MEDICINE KARTIK KEY [facility] February 23, 2025 01:00 PM AMBULATORY - REHAB MEDICIN E [facility] March 14, 2025 02:00 PM AMBULATORY - REHAB MEDICIN E [facility] Mar 20, 2025 10:30 AM AMBULATORY - REHAB MEDICIN E [facility] Mar 22, 2025 09:00 AM AMBULATORY - REHAB MEDICIN E [facility] Mar 24, 2025 09:00 AM AMBULATORY - REHAB MEDICIN E [facility] Apr 11, 2025 01:00 PM AMBULATORY - REHAB MEDICIN E [facility] Apr 17, 2025 10:00 AM AMBULATORY - REHAB MEDICIN E [facility] Apr 24, 2025 09:00 AM AMBULATORY - REHAB MEDICIN E [facility] Apr 28, 2025 09:30 AM AMBULATORY - SURGERY [facility] May 03, 2025 02:00 PM AMBULATORY - REHAB MEDICIN E [facility] May 05, 2025 08:00 AM AMBULATORY - REHAB MEDICIN E [facility] May 15, 2025 10:00 AM AMBULATORY - REHAB [facility]IN [facility] May 15, 2025 01:00 PM AMBULATORY - REHAB MEDICIN E [facility] May 29, 2025 11:00 AM AMBULATORY - REHAB MEDICIN E [facility] May 30, 2025 01:45 PM AMBULATORY - NONE [facility] Jul 14, 2025 10:30 AM AMBULATORY - REHAB [facility] Lab Results: +/- 30 days of the encounter This section includes the Chemistry and Hematology Lab Results on record with [place] for the patient. Radiology Reports and Pathology Reports are provided separately, in subsequent sections. Lab Results This section contains the Chemistry/Hematology Results that were resulted 30 days before or 30 daysafter the date of the Encounter. Date/Time Source Result Type Result - Unit Interpretation Reference Range Specimen Type Comment February 21, 2025 09:08 AM [facility] COMPREHENSIVE METABOLIC PANEL+MG PLASMA Specim en Type: PLASMA No comment entered. Ordering Provider: KURT NEWELL Report Released Date/Time: Nov 22, 2024 10:51 AM Reporting Lab: [facility] [id number] Performing Lab: [facility] [id number] CREATININE 0.6 mg/dL 0.5-1.0 UREA NITROGEN 10 [...] >90 >60 February 21, 2025 09:08 AM [facility] CBC & DIFF BLOOD Specimen Type: BLOOD Comment: Automated Differential Performed Ordering Provider: KURT NEWELL Report Released Date/Time: Nov 22, 2024 10:51 AM Reporting Lab: [facility] [id number] Performing Lab: [facility] [id number] WBC 6.6 4.0-11.0 RBC 4.66 4.00-5.40 HGB [...] and tobacco- related health factors from the [place] facility where the Encounter took place. Current Smoking Status This section includes the most current smoking, or tobacco-related health factor, from the [place] facility where the Encounter took place. Date/Time Current Smoking Status Comment Srini [email or web address] Nov 27, 2023 03:30 PM VA-TOBACCO QUIT 5 TO < 15 YRS [facility] Tobacco Use History This section includes a history of the smoking, or tobacco-related health factors, that were collected on or before the date of the Encounter. The data comes from the [place] facility where the Encounter took place. Date/Time Smoking Status/Tobacco Use Comment F [email or web address] Nov 27, 2023 03:30 PM VA-TOBACCO QUIT 5 TO < 15 YRS [facility] Jan 14, 2023 09:03 AM VA-TOBACCO FORMER USER [facility] Jan 14, 2023 09:03 AM VA-TOBACCO QUIT 5 TO < 15 YRS [facility] Encounter Notes: All associated encounter notes This section contains the clinical notes associated to the Encounter. Date/Time Encounter Note(s) Provider Source Feb 01, 2025 04:19 PM NO SHOW NOTE: LOCAL TITLE: NO SHOW/CANCELLATION CLINIC NOTE STANDARD TITLE: NO SHOW NOTE DATE OF NOTE: FEB 01, 2025@16:19 ENTRY DATE: FEB 01, 2025@16:19:18 AUTHOR: SHASHI ZARATE EXP COSIGNER: URGENCY: STATUS: COMPLETED not seen for scheduled appointment due to: No Show Appointment Rescheduled: Yes Please review patient chart and medications for renewal needs (if appropriate). /los/ SHASHI ZARATE,OTR/L,BCPR,DRS OCCUPATIONAL THERAPIST Signed: 02/01/2025 16:19 SHASHI ZARATE [facility]
--- OUTSIDE RECORDS SUMMARY | 2025-02-16 09:20 | XMS_ITS | Encounter Summary ---
Author Name [facility] Organization [facility] [place] Address [address] [place] [address] Care Team Providers Care Toe Laster Name Role Phone CINDY ZAMORANO Primary Care Provider Unavail able Selected Encounter This section includes the information on record at [place] for the Encounter. Date/Time Encounter Type Encounter Description Reason Provider Source February 16, 2025 02:20 PM Outpatient Encounter ADMIN PAT ACTIVTIES (MASNONCT) SHA NAVARRO Encounter Template Text not used by [place] Plan of Treatment: Future Appointments (+ 6 months) and Future Tests (+/- 45 days) The Plan of Treatment section includes future care activities for the patient from all [place] treatmentfacilities. This section includes future appointments and future orders which are active, pending or scheduled. Future Appointments This section includes appointments that were scheduled to occur 6 months from the date of the Encounter, up to a maximum of 20 appointments. The data comes from all [place] treatment facilities. Appointment Date/Time Appointment Type Appointme nt Facility Name February 21, 2025 09:00 AM AMBULATORY [facility] NONE [facility] February 21, 2025 10:00 AM AMBULATORY - MEDICINE [facility] February 23, 2025 01:00 PM AMBULATORY - REHAB MEDICIN E [facility] March 14, 2025 02:00 PM AMBULATORY - REHAB MEDICIN E [facility] Mar 20, 2025 10:30 AM AMBULATORY - REHAB MEDICIN E [facility] Mar 22, 2025 09:00 AM AMBULATORY - REHAB MEDICIN E [facility] Mar 24, 2025 09:00 AM AMBULATORY - REHAB MEDICIN E [facility] Apr 11, 2025 01:00 PM AMBULATORY - REHAB MEDICIN E [facility] Apr 17, 2025 10:00 AM AMBULATORY - REHAB MEDICIN E [facility] Apr 24, 2025 09:00 AM AMBULATORY - REHAB MEDICIN E [facility] Apr 28, 2025 09:30 AM AMBULATORY - SURGERY [facility] May 03, 2025 02:00 PM AMBULATORY - REHAB MEDICIN E [facility] May 05, 2025 08:00 AM AMBULATORY - REHAB MEDICIN E [facility] May 15, 2025 10:00 AM AMBULATORY - REHAB MEDICIN E [facility] May 15, 2025 01:00 PM AMBULATORY - REHAB MEDICIN E [facility] May 29, 2025 11:00 AM AMBULATORY - REHAB MEDICIN E [facility] May 30, 2025 01:45 PM AMBULATORY - NONE [facility] Jul 14, 2025 10:30 [facility] Results: +/- 30 days of [...] Type Comment February 21, 2025 09:08 AM [facility] COMPREHENSIVE METABOLIC PANEL+MG PLASMA Specim en Type: PLASMA No comment entered. Ordering Provider: KURT NEWELL Report Released Date/Time: Nov 22, 2024 10:51 AM Reporting Lab: [facility] [id number] Performing Lab: [facility] [id number] CREATININE 0.6 mg/dL 0.5-1.0 UREA NITROGEN 10 [...] >90 >60 February 21, 2025 09:08 AM [facility] CBC & DIFF BLOOD Specimen Type: BLOOD Comment: Automated Differential Performed Ordering Provider: KURT NEWELL Report Released Date/Time: Nov 22, 2024 10:51 AM Reporting Lab: [facility] [id number] Performing Lab: [facility] [id number] WBC 6.6 4.0-11.0 RBC 4.66 4.00-5.40 HGB [...] smoking, or tobacco-related health factor, from the [facility] where the Encounter took place. Date/Time Current Smoking Status Comment Srini ity Nov 27, 2023 03:30 PM VA-TOBACCO FORMER USER [facility] Tobacco Use History This section [...] 5 TO < 15 YRS [facility] Encounter Notes: All associated encounter notes This section contains the clinical notes associated to the Encounter. Date/Time Encounter Note(s) Provider Source February 16, 2025 02:20 PM CAREGIVER CERTIFICATE: LOCAL TITLE: CSP PCAFC CEAT REVIEW CONSULT STANDARD TITLE: CAREGIVER CERTIFICATE DATE OF NOTE: FEBRUARY 16, 2025@14:20 ENTRY DATE: FEBRUARY 16, 2025@14:20:45 AUTHOR: REECE NAVARRO COSIGNER: URGENCY: STATUS: COMPLETED Centralized Eligibility and Appeals Team (CEAT) Review Note The Centralized Eligibility and Appeals Team is responsible for dispositioning initial and ongoing eligibility determinations, to include level of care, as well as appeal determinations within the Caregiver Support Program's (CSP) Program of Comprehensive Assistance for Family Caregivers (PCAFC). PCAFC is a clinical program involving initial assessment and periodic reassessment for continued eligibility based on the needs of the eligible [place] and/or Family Caregivers. Decisions to discontinue an individual's participation may be impacted by changes in the [place] and/or Family Caregiver(s)' circumstances, changes in needs or abilities, or VA may seek to discharge a participant due to failure to meet expectations or otherwise adhere to the intent of the program. 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 Yes 3) The individual is in need of personal care services for a minimum of six continuous months based on any one of the following: An inability to perform an activity of daily living or A need for supervision, protection, or instruction *In need of personal care services means that the eligible [place] requires in-person personal care services from another person, and without such personal care services, alternative in-person caregiving arrangements (including respite care or assistance of an alternative caregiver) would be required to support the eligible 's safety. *Personal Care Services means care or assistance of another person necessary in order to support the eligible 's health and well-being, and perform personal functions required in everyday living ensuring the eligible remains safe from hazards or dangers incident to his or her daily environment. Yes 4) It is in the best interest of the individual to participate in the program. *In the best interest means a clinical determination that participation in [facility] is likely to be beneficial to the [place] or ramp service employee. Such determination will include consideration, by a clinician, of whether participation in the program significantly enhances the [place]'s or ramp service employee's ability to live safely in a home setting, supports the [place]'s or ramp service employee's potential progress in rehabilitation, if such potential exists, increases the [place]'s or ramp service employee's potential independence, if such potential exists, and creates an environment that supports the health and well-being of the or ramp service employee. Yes 5) Personal care services that would be provided by the Family Caregiver will not be simultaneously and regularly provided by or through another individual or entity. Yes 6)The individual receives care at home or will do so if [place] designates a Family Caregiver. Yes 7) The individual receives ongoing care from a primary care team or will do so if [place] designates a Family Caregiver. *Primary care team means one or more medical assembler who care for a patient based on the clinical needs of the patient. Primary care teams must include a [place] primary care provider who is a physician, advanced practice nurse, or a physician speech language assistant. Yes All of the above questions are answered YES 1) has an inability to perform an activity of daily living: Yes * Inability to perform an activity of daily living (ADL) means a [place] or ramp service employee requires personal care services each time he or she completes one or more of the following: - Dressing or undressing oneself; - Bathing; - Grooming oneself in order to keep oneself clean and presentable; - Adjusting any special prosthetic or orthopedic appliance, that by reason of the particular disability, cannot be done without assistance (this does not include the adjustment of appliances that nondisabled persons would be unable to adjust without aid, such as supports, belts, lacing at the back, etc.); - Toileting or attending to toileting; - Feeding oneself due to loss of coordination of upper extremities, extreme weakness, inability to swallow, or the need for a non-oral means of nutrition; or - Mobility (walking, going upstairs, transferring from bed to chair, etc.) Inability to perform the following: Dressing or undressing oneself Details: Hands-on each time: The was found to need hands-on assistance each time with this ADL. Bathing Details: Hands-on each time: The was found to need hands-on assistance each time with this ADL. Summary of ADL needs: During CSP assessments, [place] and caregiver reported needing increased assistance with ADLs due to weakness, fatigue, and chronic widespread pain. Specifically, they noted caregiver provides set-up assistance with cutting her food, but Aud[place]on is able to eat independently; caregiver provides encouragement for her to complete grooming tasks but she is able to independently complete oral hygiene; caregiver provides transfer assist on and off the toilet and occasional assistance with toilet hygiene but can typically perform rosi cares independently; she does not use a prosthetic device; [place] is modified independent with use of an assistive device and caregiver provides standby and steadying assistance with transfers and mobility. Of note, set-up assistance with meals, reminders or encouragement to complete grooming tasks, intermittent assistance with toilet hygiene, and standby steading assistance with mobility does not meet the definition of an inability to perform an ADL, which requires that the individual need hands-on assistance each time the ADL is performed. Additionally, during CSP Re-assessment, and caregiver reported increased need for hands-on assistance with bathing and grooming. Review of record was variable with reported myriad of somatic concerns and fluctuating level of need regarding hands-on assistance with ADLs. Nonetheless, while etiology remains uncertain and her providers have noted that her physical exams have been difficult to interpret, her reports of chronic diffuse pain, neurological symptoms, thoracic pain, and psychiatric distress with reported increased need for caregiver assistance with bathing and dressing are well documented in the record (Rehab Psychology Consult, 12/29/2024; Occupational Therapy Consult, 12/28/2024, 01/08/2024; Physical Therapy Consult, 12/23/2024; Neurosurgery Clinic note, 12/22/2024; Neurology Clinic Note, 12/13/2024; Pain Center Consult, 12/02/2024; Addendum to Pain Center Consult, 12/02/2024; Neurology Consult, 11/26/2024; [facility] Neurology, 11/18/2024; [facility] PCAFC Wellness Contact, 02/02/2024; TBI Consult, 11/06/2023). As such, we found that the meets PCAFC criteria for bathing and dressing require hands-on assistance each time the task is completed. 2) has a need for supervision, protection, or instruction: Yes * Need for supervision, protection, or instruction means an individual is in need of personal care services because of: - A need for supervision or protection based on symptoms or residuals of neurological or other impairment or injury; or - A need for regular or extensive instruction or supervision without which the ability of the [place] to function in daily life would be seriously impaired Summary of need for supervision, protection, or instruction: During CSP assessments, [place] and caregiver reported ongoing concerns related to her medical complexities, chronic pain, mental health, and memory. Specifically, caregiver noted he assists with mediation management, care coordination, provides cues, encouragement to complete self-care tasks, and redirection of behaviors. Aud[place]on reportedly is able to be left home alone for brief periods, can drive independently but does so rarely, and makes efforts to participate in household tasks and caring for their children. Review of records found Aud[place]on continues to experience high levels of emotional distress, difficulty with emotion regulation, ongoing avoidant behaviors, variable ability to complete self-care tasks due to high levels of pain and psychiatric distress, and benefits from caregiver's coordination and oversight of her care (Rehab Psychology Progress Note, 01/23/2025, 01/16/2025; Emergency Department Note, 01/05/2025; Rehab Psychology Consult, 12/29/2024; Occupational Therapy Consult, 01/08/2024; TBI Consult, 11/06/2023). As such, we found that the [place]on has a need for supervision or protection based on symptoms or residuals of neurological or other impairment or injury. (38 U.S.C. 1720G(a)(2)(C)(ii)). Additionally, During CSP assessments, caregiver reported concern for Audubon's physical safety and fall risk due to chronic pain, weakness, and instability. Caregiver also reported need to provide reminders, cues, and encouragement for Aud[place]on to get out of bed and complete self-care tasks. Review of record found Aud[place]on reports lower extremity weakness and frequent falls, continues to rely on her caregiver for reminders and oversight of daily tasks, and demonstrates chronic symptoms of depression and anxiety in addition to difficulties managing high levels of chronic pain (Rehab Psychology Progress Note, 01/23/2025, 01/16/2025; Emergency Department Note, 01/05/2025; Rehab Psychology Consult, 12/29/2024; Occupational Therapy Consult, 01/08/2024; TBI Consult, 11/06/2023). Additionally, review of record found demonstrates ongoing difficulties with appropriate self-advocacy skills, has limited insight and ability to manage complexities of her condition without caregiver intervention and oversight. (Rehab Psychology Progress Note, 01/23/2025, 01/16/2025; Emergency Department Note, 01/05/2025). As such, we found that the meets PCAFC criteria for a need for regular or extensive instruction or supervision without which the ability of the to function in daily life would be seriously impaired. (38 U.S.C. 1720G(a)(2)(C)(iii)). 3) is unable to self-sustain in the community: No * Unable to self-sustain in the community means that an eligible either: - Requires personal care services each time he or she completes three or more of the seven activities of daily living (ADL) listed in the definition of an inability to perform an activity of daily living in this section, and is fully dependent on a caregiver to complete such ADLs; or - Has a need for supervision or protection based on symptoms or residuals of neurological or other impairment or injury on a continuous basis; or - Has a need for regular or extensive instruction or supervision without which the ability of the to function in daily life would be seriously impaired on a continuous basis LEVEL DETERMINATION is LEVEL ONE CAREGIVER REQUIREMENTS Primary Family Caregiver Primary Family Caregiver name: Paulo Padilla 1) Is the Primary Family Caregiver 18 years of age or older? Yes 2) Is the Primary Family Caregiver a family member or will live with the if designated as a Family Caregiver? Yes Relationship to [place]on: Spouse Residence of caregiver: [address] [place], [place] [address] [address] 3) Is there a determination by [place] of abuse or neglect of the [place] by the Primary Family Caregiver? No The Centralized Eligibility and Appeals Team has determined that additional caregiver training is not needed at this time. Yes The Centralized Eligibility and Appeals Team has determined that home-care assessments are not needed at this time. Yes ADDITIONAL CAREGIVER REQUIREMENTS Primary Family Caregiver 4) Can the Primary Family Caregiver communicate and understand the required personal care services and any specific instructions related to the care of the eligible Aud[place]on? (accommodation for language or hearing impairment will be made to the extent possible and as appropriate) Yes 5) Will the Primary Family Caregiver be capable of performing the required personal care services without supervision, in adherence with the eligible 's treatment plan in support of the needs of the eligible Aud[place]on? Yes 6) Was the Caregiver training completed with a satisfactory outcome? Yes Date training was completed: 02/06/2023 7) During the Home-Care assessment, did the caregiver demonstrate the ability to carry out the specific personal care services, core competencies, and additional care requirements? Yes Date of Initial Home-Care assessment: 02/25/2023 PROGRAM PARTICIPATION REQUIREMENTS 1) The individual resides in a State, defined as each of the several States, Territories, and possessions of the [place], the district of [place], and the [place]. Yes 2) [place] and each Family Caregiver are compliant with the required wellness contacts Yes 3) and each Family Caregiver are compliant with the required reassessment process. Yes 4) Each Family Caregiver, as applicable, is compliant with providing the required personal care services to the Aud[place]on. Yes 5) Aud[place] and Family Caregiver have been determined to have committed fraud as it relates to enrollment in the Program of Comprehensive Assistance for Family Caregivers. No DETERMINATION SECTION Approved - and at least one Family Caregiver continue to meet the eligibility requirements for enrollment in the Program of Comprehensive Assistance for Family Caregivers. [place] Level One Primary Family Caregiver Approved Centralized Eligibility and Appeals Team summary of determination: The interprofessional Centralized Eligibility and Appeals Team (CEAT) completed a comprehensive review of the medical records and required Program of Comprehensive Assistance for Family Caregivers (PCAFC) assessments and determined that the Aud[place]on and caregiver(s) meet eligibility criteria for PCAFC at the time of this final application review. The CEAT found the Aud[place]on to be in need of personal care services due to a need for hands-on assistance each time they complete one or more activities of daily living (ADLs) and due to a need for supervision or protection based on symptoms or residuals of neurological or other impairment or injury, or a need for regular or extensive instruction or supervision without which the ability of the Aud[place]on to function in daily life would be seriously impaired, for a minimum of six continuous months. Therefore, [place] is determined to meet eligibility requirements at Level 1. PLEASE NOTE: After initial re-assessment review, the VISN 23 CEAT has decided to waive the caregiver training and home-care assessment. Therefore, this consult reply will serve as the final re-assessment note. Awais Padilla [id number] [address] [id number] 02/16/2025 Dear Awais Padilla: Thank you for your service and for participating in the Program of Comprehensive Assistance for Family Caregivers (PCAFC). Evaluation of initial and ongoing PCAFC eligibility requires comprehensive assessment of the and Family Caregiver(s) or Applicant(s). We have made a decision on your reassessment. This decision was made on 02/16/2025. This letter informs you of our decision. It lists the evidence used and reasons for our decision. We have also included information about what to do if you disagree with our decision, and who to contact if you have questions or need assistance. This reassessment review pertains to the following individuals: : Awais Padilla Primary Family Caregiver: Paulo Padilla WHAT WE DECIDED The Centralized Eligibility and Appeals Team (CEAT) determined that you and your Family Caregiver(s) continue to meet eligibility at Level 1. EXPLANATION OF DECISION PCAFC eligibility requirements can be found in 38 U.S.C. 1720G, Assistance and Support Services for Caregivers, and 38 C.F.R. Part 71, Caregivers Benefits and Certain Medical Benefits Offered to Family Members of Veterans. For the purposes of this letter, the term means an eligible [place] of the Armed Forces or an eligible bakery team member of the Armed Forces who has been found unfit for duty due to a medical condition by their Service's Physical Evaluation Board, and a date of medical discharge has been issued. The term Armed Forces means the active , naval, air, or space service as described in section 101 of title 38, [place] Code. The Program Requirements and Findings section of this letter includes PCAFC eligibility criteria that were evaluated to make this decision. In part, your continued eligibility for PCAFC was based on the determination that the eligible [place] is in need of personal care services for a minimum of six continuous months based on: - an inability to perform an activity of daily living (ADL) - a need for supervision or protection based on symptoms or residuals of neurological or other impairment or injury - a need for regular or extensive instruction or supervision without which the ability of the to function in daily life would be seriously impaired. In need of personal care services means: The eligible [place] requires in-person personal care services from another person, and without such personal care services, alternative in-person caregiving arrangements (including respite care or assistance of an alternative caregiver) would be required to support the eligible 's safety. [facility] uses two levels to distinguish the amount and degree of personal care services provided to the eligible [place] for purposes of the Primary Family Caregiver's stipend amount. These levels identify whether the eligible Veterans has moderate or severe needs. At the time of the initial eligibility assessment, the amount and degree of personal care services provided is assessed and the eligible [place] will receive a designation at either Level 1 or Level 2. Level 1. An eligible with moderate needs who requires hands-on assistance with personal care services each time one or more of the seven ADLs listed in the definition of an inability to perform an ADL in 38 C.F.R. 71.15 are completed; or whose need for supervision or protection based on symptoms or residuals of neurological or other impairment or injury (definition from [facility] 1720G(a)(2)(C)(ii); or need for regular or extensive instruction or supervision without which the ability of the to function in daily life would be seriously impaired (from 38 [facility] 1720G(a)(2)(C)(iii). Level 2. An eligible with severe needs who is assessed to be unable to self-sustain in the community, which means that an eligible requires personal care services each time he or she completes three or more of the seven ADLs listed in the definition of an inability to perform an ADL in 38 C.F.R. 71.15, and is fully dependent on a caregiver to complete such ADLs; or has a need for supervision or protection based on symptoms or residuals of neurological or other impairment or injury on a continuous basis (definition from 38 [place] 1720G(a)(2)(C)(ii), continuous basis from 38 C.F.R. 71.15 definition of unable to self-sustain); or has a need for regular or extensive instruction or supervision without which the ability of the to function in daily life would be seriously impaired on a continuous basis (from 38 [place] 1720G(a)(2)(C)(iii), continuous basis from 38 C.F.R. 71.15 definition of unable to self-sustain). EVIDENCE CONSIDERED TO MAKE THE DECISION We based this decision on the following records: [place] Form 10-10CG, Application for the Program of Comprehensive Assistance for Family Caregivers, dated 12/16/2022. [place] Intake, dated 12/01/2024. Assessment, dated 01/02/2025. [place] Functional Assessment, dated 01/25/2025. Caregiver Assessment, dated 01/02/2025. Primary Care Collaboration, dated 01/04/2025. Family Caregiver participant Training, completed 02/06/2023. Home-Care Assessment, dated 02/25/2023. [place] Medical Records, dated [facility] Records from 12/16/2022 through 02/16/2025 including, but not limited to: Appointment Scheduling Note, 02/10/2025-01/24/2025; Rehab Psychology Progress Note, 01/23/2025, 01/16/2025; PT-Progress Note, 01/18/2025; Primary Care Secure Messaging, 01/16/2025; Occupational Therapy Consult, 01/10/2025, 12/23/2024, 01/08/2024; Emergency Depat Note, 01/05/2025; Rehab Psychology Consult, 12/29/2024; Physical Therapy Consult, 12/23/2024, 02/19/2024; Neurosurgery Clinic note, 12/22/2024; Neurology Clinic Note, 12/13/2024; Pain Center Consult, 12/02/2024; Addendum to Pain Center Consult, 12/02/2024; Neurology Consult, 11/26/2024; TBI Consult, 11/06/2023; [facility] Wellness Contact, 10/04/2024, 06/23/2024, 02/02/2024. Non-VA Medical Records, including [facility] Neurology, 11/18/2024. 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 PROGRAM REQUIREMENTS AND FINDINGS Below are the program eligibility requirements for Veterans and Family Caregivers for participation in the Program of Comprehensive Assistance for Family Caregivers, with notation if the requirement was met or unmet. FINDINGS Evaluation of initial and ongoing [facility] eligibility requires comprehensive assessment of the [place] and Family Caregiver(s) or Applicant(s). Over time, the needs and circumstances of Veterans and caregivers change, therefore, an eligible [place] or Family Caregiver's eligibility may also change and will be periodically reassessed as applicable. As a result, certain findings in [facility] decisions are time specific. In making our determination, we made the following findings as identified in 38 C.F.R. 71.20, Eligible Veterans and Service Members, and 38 C.F.R, 71.25, Approval and Designation of Primary and Secondary Family Caregivers, however; note that any favorable findings are dynamic in nature and apply to circumstances that are subject to change management lead time. Thus, in the future, these findings will require re-evaluation. The participant is a [place], or a member of the Armed Forces undergoing medical discharge from the Armed Forces. The term means a person who served in the active , naval, air, or space service, and who was discharged or released therefrom under conditions other than dishonorable. The term undergoing medical discharge means the bakery team member has been found unfit for duty due to a medical condition by their Service's Physical Evaluation Board, and a date of medical discharge has been issued. Requirement met due to the participant is a [place], or a member of the Armed Forces undergoing medical discharge from the Armed Forces. The [place] participant has a serious injury incurred or aggravated in the line 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 , naval, 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. The term serious injury means any service-connected disability that (1) is rated at 70 percent or more by VA; or (2) is combined with any other service-connected disability or disabilities, and a combined rating of 70 percent or more is assigned by VA. Requirement met due to the Aud[place]on incurred or aggravated a serious injury in the line of duty. The has a Combined service-connected disability rating of 100% assigned by VA. The participant resides in a State. The term State means each of the several States, Territories, and possessions of the [place], the [place], and the [place]. Requirement met due to the Audubon participant residing in [place], [place]. The Audubon participant is in need of personal care services for a minimum of six continuous months. In need of personal care services means the eligible requires in-person personal care services from another person, and without such personal care services, alternative in-person caregiving arrangements (including respite care or assistance of an alternative caregiver) would be required to support the eligible Audubon's safety. Personal care services means care or assistance of another person necessary in order to support the eligible 's health and well-being, and perform personal functions required in everyday living ensuring the eligible remains safe from hazards or dangers incident to his or her daily environment. Requirement met due to the Audubon participant is in need of personal care services from another person for a minimum of six continuous months. The Audubon participant is in need of personal care services for a minimum of six continuous months based on any one of the following: An inability to perform an activity of daily living (ADL). Inability to perform an ADL means a requires personal care services each time the Audubon participant completes one or more of the following ADLs: Requirement met Feeding oneself due to loss of coordination of upper extremities, extreme weakness, inability to swallow, or the need for a non-oral means of nutrition: Requirement unmet due to No Hands-On Needs: The Audubon was found to not require hands-on assistance with this ADL. Needs such as set-up, clean-up, and supervision do not meet the definition of an inability to perform an ADL. Grooming oneself in order to keep oneself clean and presentable: Requirement unmet due to No Hands-On Needs: The Audubon was found to not require hands-on assistance with this ADL. Needs such as set-up, clean-up, and supervision do not meet the definition of an inability to perform an ADL. Bathing: Requirement met due to Hands-on each time: The Audubon was found to need hands- on assistance each time with this ADL. Dressing or undressing oneself: Requirement met due to Hands-on each time: The Audubon was found to need hands- on assistance each time with this ADL. Toileting or attending to toileting: Requirement unmet due to Intermittent Needs: The Audubon was found to need intermittent assistance with this ADL, which is less frequent than requiring hands-on assistance each time the ADL is performed. Adjusting any specific prosthetic or orthopedic appliance, that by reason of the particular disability, cannot be done without assistance (this does not include the adjustment of appliances that nondisabled persons would be unable to adjust without aid, such as supports, belts, lacing at the back, etc.): Requirement unmet due to Audubon does not use a prosthetic or orthopedic appliance. Mobility (walking, going up stairs, transferring from bed to chair, etc.): Requirement unmet due to No Hands-On Needs: The was found to not require hands-on assistance with this ADL. Needs such as set-up, clean-up, and supervision do not meet the definition of an inability to perform an ADL. The participant has a need for supervision or protection based on symptoms or residual of neurological or other impairment or injury: Requirement met due to During CSP assessments, and caregiver reported ongoing concerns related to her medical complexities, chronic pain, mental health, and memory. Specifically, caregiver noted he assists with mediation management, care coordination, provides cues, encouragement to complete self- care tasks, and redirection of behaviors. reportedly is able to be left home alone for brief periods, can drive independently but does so rarely, and makes efforts to participate in household tasks and caring for their children. Review of records found Audubon continues to experience high levels of emotional distress, difficulty with emotion regulation, ongoing avoidant behaviors, variable ability to complete self-care tasks due to high levels of pain and psychiatric distress, and benefits from caregiver's coordination and oversight of her care (Rehab Psychology Progress Note, 01/23/2025, 01/16/2025; Emergency Department Note, 01/05/2025; Rehab Psychology Consult, 12/29/2024; Occupational Therapy Consult, 01/08/2024; TBI Consult, 11/06/2023). As such, we found that the has a need for supervision or protection based on symptoms or residuals of neurological or other impairment or injury. (38 U.S.C. 1720G(a)(2) (C)(ii)). Of note, while demonstrates chronic symptoms of depression and anxiety which negatively impact pain and cognition, review of record found no evidence of severe cognitive impairment or serious mental health concerns that would necessitate a need for continuous oversight and monitoring for behaviors. Caregiver reportedly is able to leave Audubon alone for brief periods without incident and she is able to travel in the community by herself, if needed. Therefore, we did not find the Audubon to have a need for supervision or protection based on symptoms or residuals of neurological or other impairment or injury on a continuous basis (38 U.S.C. 1720G(a)(2)(C)(ii), continuous basis from 38 C.F.R. 71.15 definition of Unable to self-sustain in the community). The participant has a need for regular or extensive instruction or supervision without which the ability of the Audubon to function in daily life would be seriously impaired: Requirement met due to During CSP assessments, caregiver reported concern for Audubon's physical safety and fall risk due to chronic pain, weakness, and instability. Caregiver also reported need to provide reminders, cues, and encouragement for Audubon to get out of bed and complete self-care tasks. Review of record found reports lower extremity weakness and frequent falls, continues to rely on her caregiver for reminders and oversight of daily tasks, and demonstrates chronic symptoms of depression and anxiety in addition to difficulties managing high levels of chronic pain (Rehab Psychology Progress Note, 01/23/2025, 01/16/2025; Emergency Department Note, 01/05/2025; Rehab Psychology Consult, 12/29/2024; Occupational Therapy Consult, 01/08/2024; TBI Consult, 11/06/2023). Additionally, review of record found Faviola demonstrates ongoing difficulties with appropriate self-advocacy skills, has limited insight and ability to manage complexities of her condition without caregiver intervention and oversight. (Rehab Psychology Progress Note, 01/23/2025, 01/16/2025; Emergency Department Note, 01/05/2025). As such, we found that the meets [facility] criteria for a need for regular or extensive instruction or supervision without which the ability of the Audubon to function in daily life would be seriously impaired. (38 U.S.C. 1720G(a)(2)(C)(iii)). Of note, while caregiver provides oversight related to medication management, care coordination, and provides verbal reminders and instructions for Audubon to complete self-cares, Faviola remains able to participate in her healthcare decisions, is capable of corresponding with her treatment team via secure messaging, is able to express her needs and preferences related to her care, and does not require extensive [id number] instructions or visual cues from the Caregiver on how to complete activities of daily living or other routine tasks. Therefore we did not find Faviola would be in need for regular or extensive instruction or supervision without which the ability of the to function in daily life would be seriously impaired on a continuous basis (38 U.S.C. 1720G(a)(2)(C)(iii), continuous basis from 38 C.F.R. 71.15 definition of Unable to self-sustain in the community). It is in the best interest of the Audubon participant to participate in the program. In the best interest is a clinical determination that participation in the program is likely to be beneficial to the . Such determination includes consideration, by a clinician, of whether participation in the program: Significantly enhances the 's ability to live safely in a home setting; Supports the Audubon's potential progress in rehabilitation, if such potential exists; Increases the 's potential independence, if such potential exists; and/or Creates an environment that supports the health and well-being of the participant. Requirement met due to the 's participation in [facility] is likely to significantly enhance the ability to live safely in a home setting; support the potential progress in rehabilitation, if such potential exists; increase the potential independence, if such potential exists; and create an environment that supports the health and well-being of the participant. The personal care services that would be provided by the Family Caregiver participant will not be simultaneously and regularly provided by or through another individual or entity. Requirement met. During CSP assessments, Audubon and caregiver reported needing increased assistance with ADLs due to weakness, fatigue, and chronic widespread pain. Specifically, they noted caregiver provides set-up assistance with cutting her food, but is able to eat independently; caregiver provides encouragement for her to complete grooming tasks but she is able to independently complete oral hygiene; caregiver provides transfer assist on and off the toilet and occasional assistance with toilet hygiene but can typically perform rosi cares independently; she does not use a prosthetic device; Audubon is modified independent with use of an assistive device and caregiver provides standby and steadying assistance with transfers and mobility. Of note, set-up assistance with meals, reminders or encouragement to complete grooming tasks, intermittent assistance with toilet hygiene, and standby steading assistance with mobility does not meet the definition of an inability to perform an ADL, which requires that the individual need hands-on assistance each time the ADL is performed. Additionally, during CSP Re-assessment, Audubon and caregiver reported increased need for hands-on assistance with bathing and grooming. Review of record was variable with reported myriad of somatic concerns and fluctuating level of need regarding hands-on assistance with ADLs. Nonetheless, while etiology remains uncertain and her providers have noted that her physical exams have been difficult to interpret, her reports of chronic diffuse pain, neurological symptoms, thoracic pain, and psychiatric distress with reported increased need for caregiver assistance with bathing and dressing are well documented in the record (Rehab Psychology Consult, 12/29/2024; Occupational Therapy Consult, 12/28/2024, 01/08/2024; Physical Therapy Consult, 12/23/2024; Neurosurgery Clinic note, 12/22/2024; Neurology Clinic Note, 12/13/2024; Pain Center Consult, 12/02/2024; Addendum to Pain Center Consult, 12/02/2024; Neurology Consult, 11/26/2024; [facility], 11/18/2024; [facility] Wellness Contact, 02/02/2024; TBI Consult, 11/06/2023). As such, we found that the meets PCAFC criteria for bathing and dressing require hands-on assistance each time the task is completed. The participant receives care at home or will do so if [place] designates a Family Caregiver. Requirement met due to the participant receives care at home or will do so if [place] designates a Family Caregiver. The participant receives ongoing care from a primary care team or will do so if [place] designates a Family Caregiver. Primary care team means one or more medical assembler who care for a patient based on the clinical needs of the patient. Primary care teams must include a VA primary care provider who is a physician, advanced practice nurse, or a physician speech language assistant. Requirement met due to the [place] participant receives ongoing care from a primary care team that includes a [place] primary care provider or will do so if [place] designates a Family Caregiver. FAMILY CAREGIVER FINDINGS The Family Caregiver participant resides in a State. The term State means each of the several States, Territories, and possessions of the [place], the [place], and the [place]. Requirement met due to the Family Caregiver participant residing in a State. The Family Caregiver participant is the eligible 's spouse, son, daughter, parent, stepfamily member, extended family member, or someone who lives with the eligible Aud[place]on full-time or will do so if designated as a Family Caregiver. Requirement met due to the Family Caregiver is a spouse, son, daughter, parent, stepfamily member, extended family member, or someone who lives with the eligible full-time or will do so if designated as a Family Caregiver. The Family Caregiver participant is 18 years of age or older. Requirement met due to the Family Caregiver participant is 18 years of age or older. The Family Caregiver participant must be initially assessed by VA as being: able to complete caregiver education and training; able to communicate and understand the required personal care services and any specific instructions related to the care of the eligible (accommodation for language or hearing impairment will be made to the extent possible and as appropriate); capable of performing the required personal care services without supervision, in adherence with the eligible Audubon's treatment plan in support of the needs of the eligible Audubon; or did complete caregiver training or did demonstrate the ability to carry out the specific personal care services, core competencies, and additional care requirements: Requirement met due to the Family Caregiver participant completed caregiver training or did demonstrate the ability to carry out the specific personal care services, core competencies, and additional care requirements. Completed 02/06/2023 There is no determination by VA of abuse or neglect of the eligible [place] by the Family Caregiver participant. Requirement met due to there has been no determination by VA of abuse or neglect of the eligible by the Family Caregiver participant. PROGRAM PARTICIPATION REQUIREMENTS We look forward to your participation in PCA. In addition to the eligibility requirements above, please note the following on going participation requirements: Reassessments. Reassessments for [facility] are required on an annual basis as the Aud[place]on's need for personal care services, and the needs and capabilities of the Family Caregiver(s) may change management lead time. Reassessments may occur more or less frequently than annually if a determination is made and documented by VA that more frequent reassessment is appropriate or an annual reassessment is unnecessary, as applicable. Reassessments include consideration of whether the Audubon is unable to self-sustain in the community for purposes of the monthly stipend rate. Reassessments may include a visit to the Audubon's home. Wellness contacts. Ongoing wellness contacts will be conducted to review the well-being of the and Family Caregiver(s), the adequacy of the personal care services being provided by the Family Caregiver(s). Wellness contacts will occur at a minimum of once every 120 days, and at least one wellness contact must occur in the 's home on an annual basis. Wellness contacts also offer a safe, supportive space where the and the Family Caregiver(s) can ask for guidance, voice needs, or inquire about additional services. Home Visits. Home visits are an integral part of participation in [facility]. Upon initial evaluation for eligibility and then on an annual basis, members of the Caregiver Support Program Team will visit the home of the Audubon, to ensure it is a safe and stable environment. The wallpaper remover steam that visits the home should assess for any necessary home healthcare assistance devices or equipment, that may increase the safety and livability in the home. A member of the Caregiver Support Program Team will schedule a day and time that is convenient for the and Family Caregiver(s) to visit the 's home for the purposes of completing the required initial and annual home visit. Note: A Family Caregiver's designation will be revoked when the eligible or the Family Caregiver are non-compliant with program requirements including failure to participate in: reassessments, wellness contacts, or home visits. COMPREHENSIVE BENEFITS FOR PRIMARY FAMILY CAREGIVERS Paulo Nasir Padilla, as the approved Primary Family Caregiver, you are eligible for the following: Stipend Allowance. Stipend Allowance is nontaxable and dispersed on or about the 5th of each month for care provided during the prior month. The monthly stipend does not replace career earnings and is not intended to create an employment relationship between the VA and caregivers. Additional information is provided in a fact sheet included in this mailing. The stipend amount is based on the level at which the eligible [place] was approved and the locality pay area in which the eligible Aud[place]on resides. You are approved at stipend Level 1. Level 1. The stipend amount is 62.5% of the monthly stipend rate which is based on the Office of Personnel Management (OPM) General Schedule (GS) 4, Step 1 level to include locality schedule. [facility] Program of the [facility] of Veterans Affairs () [facility] is a comprehensive health care program in which the VA shares the cost of covered health care services and supplies with the Primary Family Caregiver. Additional instructions will be sent by the Caregiver Stipend Team regarding the health plan and covered benefits if you are not covered by other health insurance (including supplemental coverage) and if you expressed interest in this health plan to your Caregiver Support Program Team. Beneficiary Travel Beneficiary Travel authorized by Section 104 of P.L.111-163 allows VA to reimburse travel expenses, including lodging and subsistence, for approved Primary and Secondary Family Caregivers of eligible Veterans during approved caregiver education and training and during the period the eligible [place]on is traveling to and from and receiving VA or VA authorized health care. All nonemergency travel reimbursement, lodging and subsidy must be pre-approved through your local VA's travel department. If you have questions concerning travel reimbursement or lodging subsidy, please contact your local travel department (phone number enclosed). Financial Planning Services Financial Planning Services are services focused on increasing financial capability and assisting the Primary Family Caregiver in developing a plan to manage their personal finances and those of the eligible [place]on, as applicable, to include household budget planning, debt management, skilled nursing planning review and education, and insurance review and education. These services are anticipated to be available Fall 2021. Legal Services Legal Services include assistance with advanced directives, power of collections attorney, simple ceron, guardianship, educational opportunities on legal topics relevant to caregiving, and referrals to community resources and/or attorneys for legal assistance or representation in other legal matters. These services are anticipated to be available Fall 2021. Respite Care Respite Care is available for not less than 30 days per year if requested by the Primary Family Caregiver. Respite care must be medically and age appropriate and may include the options of in-home and community-based services. Mental Health Services Mental Health Services will be provided at your request. These services are to ensure you have adequate support to reduce stress, burnout, and other potential psychological complications. The range of approved services includes but is not limited to individual, marital, group therapy and peer support groups. Medication management and psychiatric inpatient hospitalization will not be provided. If you require medication management or psychiatric inpatient hospitalization, the Caregiver Support Program Team can assist with a referral to a community provider using your health insurance or other community resources. Education and Training The Caregiver Support Program Team is available to answer questions and provide additional assistance and training if needed. HOW TO OBTAIN OR ACCESS INFORMATION USED IN MAKING THIS DECISION You may request a copy of the evidence we used to make our decision the following ways. If you utilize [employer], you may access your records through that system. You may also request a copy of your records by submitting a signed and completed VA Form 10-5345a, Individuals' Request for a Copy of Their Own Health Information, to the Air And Hydronic Balancing Technician at your local [place] medical facility. VA Form 10-5345a can be found at www.va.gov/vaforms/medical/p df/VHA% 20Form%5345a%20Fill-rev ision.pdf. WHAT TO DO IF YOU DISAGREE WITH THE DECISION If you disagree with this decision, you have the right to request [facility] ([facility]) review, or appeal to the Board of Veterans' Appeals (Board). Your options for doing so are described in the attached VA Form 10-305, Your Rights to Seek Further Review of PCAFC Decisions. OTHER VA SERVICES AND PROGRAMS TO SUPPORT CAREGIVERS PCAFC is just one way [place] supports caregivers. Program of General Caregiver Support Services (PGCSS) Caregivers not eligible for PCAFC may be eligible to participate in PGCSS, which is a separate program under the VA Caregiver Support Program. PGCSS provides: Caregiver skills training and education, both online and in-person Coaching, supportive counseling and support groups Peer Support Mentoring Information on and referrals to VA and community resources There is no application needed for PGCSS. For more information about PGCSS, please contact your local [place] Caregiver Support Program or visit the VA Caregiver Support Program's website at www.caregiver.va.gov. [place] Geriatric[facility] and Extended [facility] ([facility] [facility] offers a variety of programs to support Veterans and caregivers, including services in the home and in the community. Please visit the GE website at www.va.gov/GERIATRICS for information on all [facility] services and additional resources. VA Primary Care [place] Primary Care serves as the foundation of [facility] ([facility]) health care and is the first point of contact with the health care system for Veterans enrolled in [facility]. If you are interested in learning about any VA resources, please speak with your Patient Aligned Care Team (PACT) Field Marketing Lead or Primary Care provider for more information or assistance with a referral. If you have any questions about this letter or other matters, please contact the local [place]'s Caregiver Support Program (phone number enclosed) or visit the Caregiver Support Program's website at www.caregiver.va.gov. Sincerely, Caregiver Support Program Team ENCLOSURES: Local [facility] Contact Information Program of Comprehensive Assistance for Family Caregivers Stipend Fact Sheet VA FORM 10-549 Your Rights to seek Further Review of Program of Comprehensive Assistance for Family Caregivers (PCAFC) Decisions Changes to Review and Appeal Options for PCAFC Decisions FAQs Other: CC: Paulo Padilla CC: Yuriy Villareal /los/ REECE CEDENO 23 CEAT Psychologist Signed: 02/16/2025 14:32 Receipt Acknowledged By: 02/17/2025 07:16 /es/ SHIRA CALZADA, [facility] CLINICAL WINCH STRIPPER 02/22/2025 13:51 /es/ AKOSUA SINGLETON, RN REGISTERED NURSE 02/21/2025 07:26 /es/ RAJIV CANO [facility] Caregiver Barrel Polisher Inside 03/27/2025 16:39 /es/ DRAKE MARTIN [facility], Caregiver Support Centrifugal Operator 02/17/2025 15:01 /es/ Delroy Cornejo PA-C 02/16/2025 14:50 /es/ Kelsie Alonso [facility] CAREGIVER SPRAY PILOT REECE NAVARRO [facility]
--- OUTSIDE RECORDS SUMMARY | 2025-02-21 05:00 | XMS_ITS | Encounter Summary ---
Author Name Department of Vetera Affairs [place] Organization [place] of [place] Address [address] [place] [address] Care Team Providers Care Airflight Attendants Supervisor Name Role Phone CINDY ZAMORANO Primary Care Provider Unavail able Selected Encounter This section includes the information on record at [place] for the Encounter. Date/Time Encounter Type Encounter Description Reason Provider Source February 21, 2025 10:00 AM OFFICE O/P EST HI 40 MIN ONCOLOGY/TUMOR ICD-10-CM R16.1 Splenomegaly, not elsewhere classified KURT NEWELL [facility] Encounter Template Text not used by [place] Assessments - Encounter Diagnoses This section includes the primary and secondary diagnoses documented for the Encounter. Date/Time Primary/Secondary Diagnosis Diagnosis Name Provider Source February 21, 2025 09:39 AM PRIMARY Splenomegaly, not elsewhere classified KRUT NEWELL [facility] February 21, 2025 09:39 AM SECONDARY Generalized enlarged lymph nodes KURT NEWELL [facility] Plan of Treatment: Future Appointments (+ [...] The data comes from all [place] treatment [facility]. Appointment Date/Time Appointment Type Appointme nt Facility Name February 23, 2025 01:00 PM AMBULATORY - REHAB MEDICIN E [facility] March 14, 2025 02:00 PM AMBULATORY - REHAB MEDICIN E [facility] Mar 20, 2025 10:30 AM AMBULATORY - REHAB MEDICIN E [facility] Mar 22, 2025 09:00 AM AMBULATORY - REHAB MEDICIN E [facility] Mar 24, 2025 09:00 AM AMBULATORY - REHAB MEDICIN E [facility] Apr 11, 2025 01:00 PM AMBULATORY - REHAB MEDICIN E [facility] Apr 17, 2025 10:00 AM AMBULATORY - REHAB MEDICIN E [facility] Apr 24, 2025 09:00 AM AMBULATORY - REHAB MEDICIN E [facility] Apr 28, 2025 09:30 AM AMBULATORY - SURGERY [facility] May 03, 2025 02:00 PM AMBULATORY - REHAB MEDICIN E [facility] May 05, 2025 08:00 AM AMBULATORY - REHAB MEDICIN E [facility] May 15, 2025 10:00 AM AMBULATORY - REHAB MEDICIN E [facility] May 15, 2025 01:00 PM AMBULATORY - REHAB MEDICIN E [facility] May 29, 2025 11:00 AM AMBULATORY - REHAB MEDICIN E [facility] May 30, 2025 01:45 PM [facility] Jul 14, 2025 10:30 AM AMBULATORY - REHAB MEDICIN E [facility] Lab Results: +/- 30 days [...] Type Comment February 21, 2025 09:08 AM [facility] COMPREHENSIVE METABOLIC PANEL+MG PLASMA Specim en Type: PLASMA No comment entered. Ordering Provider: KURT NEWELL Report Released Date/Time: Nov 22, 2024 10:51 AM Reporting Lab: [facility] [id number] Performing Lab: [facility] [id number] CREATININE 0.6 mg/dL 0.5-1.0 UREA NITROGEN 10 [...] >90 >60 February 21, 2025 09:08 AM [facility] CBC & DIFF BLOOD Specimen Type: BLOOD Comment: Automated Differential Performed Ordering Provider: KURT NEWELL Report Released Date/Time: Nov 22, 2024 10:51 AM Reporting Lab: [facility] [id number] Performing Lab: [facility] [id number] WBC 6.6 4.0-11.0 RBC 4.66 4.00-5.40 HGB [...] IG(META,MYELO,PRO) 0.3 ABS IMMATURE GRAN 0.0 0.0-0.1 Vital Signs: All taken on the encounter date This section contains inpatient and outpatient Vital Signs collected on the date of the Encounter. Date/Time Temperature Pulse Blood Pressure Respiratory Rate SP02 Pain Height Weight Body Mass Index Source February 21, 2025 09:26 AM 98.2 89 138/98 20 97 0 67 228 36 [facility] Social History: Smoking Status (Most current) and Tobacco Use (All prior to encounter date) This section includes the most current, and the historical, smoking and tobacco- related health factors from the [facility] where the Encounter took place. Current Smoking Status This section includes the most current smoking, or tobacco-related health factor, from the [facility] where the Encounter took place. Date/Time Current Smoking Status Comment Facil ity Nov 27, 2023 03:30 PM PR-TOBACCO FORMER USER [facility] Tobacco Use History This section includes a history of the smoking, or tobacco-related health factors, that were collected on or before the date of the Encounter. The data comes from the [place] facility where the Encounter took place. Date/Time Smoking Status/Tobacco Use Comment F acility Nov 27, 2023 03:30 PM PR-TOBACCO QUIT 5 TO < 15 YRS [facility] Jan 14, 2023 09:03 AM PR-TOBACCO FORMER USER [facility] Jan 14, 2023 09:03 AM PR-TOBACCO QUIT 5 TO < 15 YRS [facility] Encounter Notes: All associated encounter notes This section contains the clinical notes associated to the Encounter. Date/Time Encounter Note(s) Provider Source February 21, 2025 09:36 AM HEMATOLOGY AND ONCOLOGY ATTENDING NOTE: LOCAL TITLE: HEME/ONC CLINIC NOTE STANDARD TITLE: HEMATOLOGY AND ONCOLOGY ATTENDING NOTE DATE OF NOTE: FEBRUARY 21, 2025@09:36 ENTRY DATE: FEBRUARY 21, 2025@09:37:19 AUTHOR: KURT NEWELL COSIGNER: URGENCY: STATUS: COMPLETED Hematology/Oncology Clinic Note Date of Service: 02/21/25 HPI: 34-year-old female with past medical history significant for chronic brain injury who presents for follow-up of abdominal pain and splenomegaly. Overall, the patient's condition is unchanged. 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 She is following in Neurology ([facility] [place] [facility] and the [facility]) as well a Pain Management. She is currenting taking gabapentin for pain. She walks with a walker and is undergoing PT/OT. No current abdominal pain. No nausea/vomiting. No weight changes. No night sweats. No chest pain. No SOB. MEDS Active Outpatient Medications (including Supplies): CARBOXYMETHYLCELLULOSE NA 0.25% OPH SOLN INSTILL 1 DROP IN ACTIVE BOTH EYES FOUR TIMES A DAY FOR DRY EYES GABAPENTIN 400MG CAP TAKE ONE CAPSULE BY MOUTH THREE TIMES ACTIVE A DAY FOR PAIN ONDANSETRON HCL 4MG TAB TAKE ONE TABLET BY MOUTH EVERY 12 ACTIVE HOURS NEEDED FOR NAUSEA RIBOFLAVIN 100MG TAB TAKE FOUR TABLETS BY MOUTH EVERY DAY ACTIVE FOR HEADACHES Non-VA NORTRIPTYLINE HCL 10MG CAP 10MG MOUTH AT BEDTIME ACTIVE Non-VA ONDANSETRON TAB 4MG [id number] ACTIVE Allergies: METOPROLOL (Jan 14, 2023) REGLAN (Jan 14, 2023) Nurse's notes reviewed. Past medical history (list previous surgeries/illnesses/dates): Active Problems: Exposure to potentially hazardous substaTraumatic brain injury ([facility] [id number]) Temporomandibular joint disorder ([facility] 41Unintentional weight loss ([facility] [id number]) Mood disorder ([facility] [id number]) Headache ([facility] [id number]) Family history: Myocardial infarction atHistory of cerebrospinal fluid leak (ICD-10-CM R69.) History of gestational diabetes mellitusGeneralized enlarged lymph nodes ([facility] 153853226) Splenomegaly ([facility] 35999342) Myelopathy ([facility] 79581768) Physical Exam: Vital signs: Height: 67 in [170.2 cm] (02/21/2025 09:26) Weight: 228 lb [103.42 kg] (02/21/2025 09:26) BSA: 2.21 BMI: 35.8 BP: 138/98 (02/21/2025 09:26) Pulse: 89 (02/21/2025 09:) Resp: 20 (02/21/2025 09:) Temp: 98.2 F [36.8 C] (02/21/2025 09:26) Pain: 0 (02/21/2025 09:26) O2 Sat: 97% (02/21/2025 09:26) Laboratory Data: CBC: HGB 13.5 (12/09/24) WBC 4.4 (12/09/24) ABS NEUT 2.6 (12/09/24) PLT 176 (12/09/24) Chemistries: UREA NITROGEN 12 (11/22/24) CREATININE 0.6 (12/09/24) CALCIUM 8.7 (11/22/24) PO4____ POTASSIUM 3.8 (11/22/24) MAGNESIUM 1.9 (11/22/24) POTASSIUM 3.8 (11/22/24) CHLORIDE 105 (11/22/24) SODIUM 138 (11/22/24) CO2 27 (11/22/24) SGOT 25 (11/22/24) SGPT 15 (11/22/24) BILIRUBIN, TOTAL 0.4 (11/22/24) LD,TOTAL 194 (11/22/24) Imaging: PET/CT (11/15/24) FINDINGS: HEAD AND NECK: No [...] No abnormal site of FDG uptake identified. ASSESSMENT/PLAN: 34-year-old female with past medical history significant for chronic brain injury who presents for follow-up of abdominal pain and splenomegaly. Counts stable.Most PET/CT from 11/15/24 demonstrates no evidence of malignancy. Will continue to monitor Follow-up in 1 year Counseling Time: 35 minutes Total Visit Time: 40 minutes /los/ KURT NEWELL HEM/ONC STAFF PHYSICIAN Signed: 03/08/2025 07:29 KURT NEWELL [facility] February 21, 2025 09:29 AM INTERNAL MEDICINE OUTPATIENT NOTE: LOCAL TITLE: MEDICINE CLINIC NURSING NOTE STANDARD TITLE: INTERNAL MEDICINE OUTPATIENT NOTE DATE OF NOTE: FEBRUARY 21, 2025@09:29 ENTRY DATE: FEBRUARY 21, 2025@09:29:54 AUTHOR: BARRETT TOVAR EXP COSIGNER: URGENCY: STATUS: COMPLETED TYPE OF VISIT: Appointment Check In Type of appointment: In-person appointment REASON FOR VISIT: scheduled clinic appointment ALLERGIES: METOPROLOL (Jan 14, 2023) REGLAN (Jan 14, 2023) VITAL SIGNS: Blood Pressure: 138/98 (02/21/2025 09:26) Pulse: 89 (02/21/2025 09:26) Respiration: 20 (02/21/2025 09:26) Temperature: 98.2 F [36.8 C] (02/21/2025 09:26) Weight: 228 lb [103.42 kg] (02/21/2025 09:26) Height: 67 in [170.2 cm] (02/21/2025 09:26) BMI: 35.8 O2 Sat: 97% (02/21/2025 09:26) Pain: 0 (02/21/2025 09:26) MEDICATION Over the Counter/Herbal Medications: The patient states that they take some outside medications and/or herbals. /los/ BARRETT TOVAR LPN, LPN Signed: 02/21/2025 09:30 BARRETT TOVAR [facility]
--- OUTSIDE RECORDS SUMMARY | 2025-02-23 08:00 | XMS_ITS | Encounter Summary ---
Author Name Department [place] Organization [place] Address [address] [place] [address] Care Team Providers Care Tacker Off Name Role Phone CINDY ZAMORANO Primary Care Provider Unavail able Selected Encounter This section includes the information on record at [place] for the Encounter. Date/Time Encounter Type Encounter Description Reason Provider Source February 23, 2025 01:00 PM PROGRAM INTAKE ASSESSMENT CAREGIVER SUPPORT PROGRAM ICD-10-CM Z87.820 Personal history of traumatic brain injury AKOSUA SINGLETON [facility] Encounter Template Text not used by [place] Assessments - Encounter Diagnoses This section includes the primary and secondary diagnoses documented for the Encounter. Date/Time Primary/Secondary Diagnosis Diagnosis Name Provider Source February 23, 2025 01:48 PM PRIMARY Personal history of traumatic brain injury AKOSUA SINGLETON [facility] Plan of Treatment: Future Appointments (+ 6 months) and Future Tests (+/- 45 days) The Plan of Treatment section includes future care activities for the patient from all [place] treatmentfacilities. This section includes future appointments and future orders which are active, pending or scheduled. Future Appointments This section includes appointments that were scheduled to occur 6 months from the date of the Encounter, up to a maximum of 20 appointments. The data comes from all [place] treatment facilities. Appointment Date/Time Appointment Type Appointme nt Facility Name March 14, 2025 02:00 PM AMBULATORY - REHAB MEDICIN E [facility] Mar 20, 2025 10:30 AM AMBULATORY - REHAB MEDICIN E [facility] Mar 22, 2025 09:00 AM AMBULATORY - REHAB MEDICIN E [facility] Mar 24, 2025 09:00 AM AMBULATORY - REHAB MEDICIN E [facility] Apr 11, 2025 01:00 PM AMBULATORY - REHAB MEDICIN E [facility] Apr 17, 2025 10:00 AM AMBULATORY - REHAB MEDICIN E [facility] Apr 24, 2025 09:00 AM AMBULATORY - REHAB MEDICIN E [facility] Apr 28, 2025 09:30 AM AMBULATORY - SURGERY [facility] May 03, 2025 02:00 PM AMBULATORY - REHAB MEDICIN E [facility] May 05, 2025 08:00 AM AMBULATORY - REHAB MEDICIN E [facility] May 15, 2025 10:00 AM AMBULATORY - REHAB MEDICIN E [facility] May 15, 2025 01:00 PM AMBULATORY - REHAB MEDICIN E [facility] May 29, 2025 11:00 AM AMBULATORY - REHAB MEDICIN E [facility] May 30, 2025 01:45 PM AMBULATORY - NONE [facility] Jul 14, 2025 10:30 AM AMBULATORY - REHAB MEDICIN E [facility] Lab Results: +/- 30 days of the encounter This section includes the Chemistry and Hematology Lab Results on record with [place] for the patient. Radiology Reports and Pathology Reports are provided separately, in subsequent sections. Lab Results This section contains the Chemistry/Hematology Results that were resulted 30 days before or 30 daysafter the date of the Encounter. Date/Time Source Result Type Result - Unit Interpretation Reference Range Specimen Type Comment February 21, 2025 09:08 AM [facility] COMPREHENSIVE METABOLIC PANEL+MG PLASMA Specim en Type: PLASMA No comment entered. Ordering Provider: KURT NEWELL Report Released Date/Time: Nov 22, 2024 10:51 AM Reporting Lab: [facility] [id number] Performing Lab: [facility] [address] CREATININE 0.6 mg/dL 0.5-1.0 UREA NITROGEN 10 [...] >90 >60 February 21, 2025 09:08 AM [facility] CBC & DIFF BLOOD Specimen Type: BLOOD Comment: Automated Differential Performed Ordering Provider: KURT NEWELL Report Released Date/Time: Nov 22, 2024 10:51 AM Reporting Lab: [facility] [phone] Performing Lab: [facility] [address] WBC 6.6 4.0-11.0 RBC 4.66 4.00-5.40 HGB [...] and tobacco- related health factors from the [place] facility where the Encounter took place. Current Smoking Status This section includes the most current smoking, or tobacco-related health factor, from the [facility] where the Encounter took place. Date/Time Current Smoking Status Comment Srini ity Nov 27, 2023 03:30 PM VA-TOBACCO QUIT 5 TO < 15 YRS [facility] Tobacco Use History This section includes a history of the smoking, or tobacco-related health factors, that were collected on or before the date of the Encounter. The data comes from the [place] facility where the Encounter took place. Date/Time Smoking Status/Tobacco Use Comment F acility Nov 27, 2023 03:30 PM VA-TOBACCO QUIT 5 TO < 15 YRS [facility] Jan 14, 2023 09:03 AM VA-TOBACCO FORMER USER [facility] Jan 14, 2023 09:03 AM VA-TOBACCO QUIT 5 TO < 15 YRS [facility] Encounter Notes: All associated encounter notes This section contains the clinical notes associated to the Encounter. Date/Time Encounter Note(s) Provider Source February 23, 2025 01:49 PM CAREGIVER CERTIFIC ATE: LOCAL TITLE: CSP PCAFC CONTINUED ELIGIBILITY NOTE STANDARD TITLE: CAREGIVER CERTIFICATE DATE OF NOTE: FEBRUARY 23, 2025@13:49 ENTRY DATE: FEBRUARY 23, 2025@13:49:25 AUTHOR: AKOSUA SINGLETON COSIGNER: URGENCY: STATUS: COMPLETED Caregiver Support Program Continued Eligibility Note for Program of Comprehensive Assistance for Family Caregivers (PCAFC) Continued eligibility determination date: 02/16/2025 Determination: Level One The individual continuing in PCAFC is the . Name of Primary Family Caregiver: Paulo Padilla The eligible is in need of personal care services due to an inability to perform an Activity of Daily Living and a need for supervision, protection or instruction. Date of verbal notification of determination: 02/23/2025 Date determination letter was mailed: 02/24/2025 Information on the following was reviewed and/or provided: Roles, Responsibilities, and Requirements Discharge & Revocation reasons Appeal and Review Options Additional Details: CSC called and spoke with the Vet and the Primary Caregiver and discussed their ongoing eligibility in PCAFC at Level 1. Discussed that they will be mailed letters at their AOR with information on the determination and that they have the option to appeal the decison and/or to request re-assessment in the future. CSC noted the ongoing monitoring in [facility] with Wellness contacts 3 times per year with one in their home. Reviewed during the PCAFC Wellness contact 02/23/25. /los/ AKOSUA SINGLETON RN REGISTERED NURSE Signed: 02/23/2025 13:54 MANIAKOSUA [facility] February 23, 2025 01:06 PM CAREGIVER CERTIFIC ATE: LOCAL TITLE: [facility] WELLNESS CONTACT STANDARD TITLE: CAREGIVER CERTIFICATE DATE OF NOTE: FEBRUARY 23, 2025@13:06 ENTRY DATE: FEBRUARY 23, 2025@13:06:33 AUTHOR: AKOSUA SINGLETON EXP COSIGNER: URGENCY: STATUS: COMPLETED sCaregiver Support Program PCA Wellness Contact [place] This [place] is enrolled in [place]'s Program of Comprehensive Assistance for Family Caregivers (PCAFC). While enrolled in PCAFC, wellness contacts review the 's well-being, adequacy of personal care services being provided by the Family Caregiver(s), and the well-being of the Family Caregiver(s). Wellness contacts occur at a minimum of once every 120 days, and at least one visit must occur in the eligible Vernon's home on an annual basis. Date of Visit: February Length of visit: 38 minutes The Vernon was identified using the following villarreal identifiers: Full Name: AWAIS PADILLA Date of : [birth year] Full Address: [address] [place] [address] Phone #: Email address: [email or web address] Is the above contact information in the electronic health record and the Caregiver Support Program IT system, correct? Yes Reason for contact: Routine (120-day contact) Individuals providing input include: Vernon Primary Family Caregiver Method of contact: Video Telehealth Name of historian/caregiver conducting visit: Paulo Wiley Contact number for backup/emergency communication: [phone] Vernon location during visit:* [address] [place] [address] Others present for visit with Vernon's consent: Name(s): Paulo Wiley Vernon confirms location is safe and private for visit. Telehealth Disclosure: Visit conducted by synchronous telehealth. verbal consent obtained. Location/emergency number confirmed. Environment surveyed and all participants identified. Virtual conference room locked. INFORMATION Vernon is receiving care from: Primary Family Caregiver Name: Paulo Wiley Have there been any changes to the individuals living in the Vernon's household? No Have there been any changes in the 's Advance Directive for Health Care, Guardianship/Conservator, or Fiduciary status? No ASSESSMENT How has your physical/mental/emotional health been lately? Details: The Vet stated that she received information that there is not a need for surgical intervention r/t her medical issues at this time. She noted that she had an period of adjusting to her disappointment at not finding a potential fix for her issues. Have you experienced any changes (falls, ER visits, hospitalizations) and/or any concerns? Yes Details: Heather noted that she had been seen in the [place] ER for heavy cough. She stated that was coughing and that her ear drum burst while she was in the waiting room and that she feels she was treated as if she was drug seeking. She stated that she was issued ear drops and discharged home. She noted that she went to a local MD and was assessed as having pneumonia. How are you coping with these changes or concerns? Details: Heather stated that she has been referred by Elvia to the [facility] this July for additional assessment. Do you have any medication concerns? Yes Details: Heather stated that she was prescribed gabapentin and that it reduced her tremors but that her pain remains. Do you have the needed medical equipment to support you in your home? No Details: Heather stated that she was denied a stair glide but that she was approved a modular ramp. She stated they received a shower chair. Do you feel that your care needs are being adequately met? Yes Do you have any legal or financial planning concerns? No Do you feel comfortable and safe in your home environment? Yes What goals or needs can we assist you with? Details: Heather noted that she continues to find that she has additional health issues. SCREENING TOOLS CAREGIVER INPUT Caregiver's understanding of the 's treatment plan: Details: Caregiver stated that he supports the vet's care access. Are there any supports or services the Caregiver needs to adequately meet the needs of the ? No Support services currently in place include: None [facility] staff provided information on the following resources and supports: - Respite PLAN: No follow-up needed outside of regularly scheduled CSP Wellness Contacts SUMMARY OF VISIT: CSC met with the Vet and the Primary Caregiver via VVC for 38 minutes for a scheduled PCAFC Wellness contact. /los/ AKOSUA SINGLETON RN REGISTERED NURSE Signed: 02/23/2025 13:48 AKOSUA SINGLETON [facility]
--- OUTSIDE RECORDS SUMMARY | 2025-03-14 09:00 | XMS_ITS | Encounter Summary ---
Author Name [facility] [place] Organization [place] Address [address] [place] [address] Care Team Providers Care Mold Tooler Name Role Phone LONA CINDY Primary Care Provider Unavail able Selected Encounter This section includes the information on record at [place] for the Encounter. Date/Time Encounter Type Encounter Description Reason Pro vider Source March 14, 2025 02:00 PM Outpatient Encounter NEUROLOGY IHE Encounter Template Text not used by [place] Plan of Treatment: Future Appointments (+ 6 months) and Future Tests (+/- 45 days) The Plan of Treatment section includes future care activities for the patient [facility] [place] [facility] This section includes future appointments and future orders which are active, pending or scheduled. Future Appointments This section includes appointments that were scheduled to occur 6 months from the date of the Encounter, up to a maximum of 20 appointments. The data comes from all [place] treatment facilities. Appointment Date/Time Appointment Type Appointme nt Facility Name Mar 20, 2025 10:30 AM AMBULATORY - REHAB MEDICIN E [facility] Mar 22, 2025 09:00 AM AMBULATORY - REHAB MEDICIN [facility] Mar 24, 2025 09:00 AM AMBULATORY - REHAB MEDICIN [facility] Apr 11, 2025 01:00 PM AMBULATORY - REHAB MEDICIN [facility] Apr 17, 2025 10:00 AM AMBULATORY - REHAB MEDICIN E [facility] Apr 24, 2025 09:00 AM AMBULATORY - REHAB MEDICIN E [facility] Apr 28, 2025 09:30 AM AMBULATORY - SURGERY [facility] May 03, 2025 02:00 PM AMBULATORY - REHAB MEDICIN E [facility] May 05, 2025 08:00 AM AMBULATORY - REHAB MEDICIN E [facility] May 15, 2025 10:00 AM AMBULATORY - REHAB MEDICIN E [facility] May 15, 2025 01:00 PM AMBULATORY - REHAB MEDICIN E [facility] May 29, 2025 11:00 AM AMBULATORY - REHAB MEDICIN E [facility] May 30, 2025 01:45 PM [facility] Jul 14, 2025 10:30 AM AMBULATORY - REHAB MEDICIN E [facility] Active, Pending, and Scheduled Orders This section includes a listing of several types of active, pending, and scheduled orders, including clinic medications orders, diagnostic test orders, procedure orders and consult orders; where the start date of the order is 45 days before the date of the Encounter or 45 days after the date of theEncounter. The data comes from all [place] treatment facilities. Test Date/Time Test Type Test Details Facility Name Apr 28, 2025 10:15 AM Consult Order VISUAL IMP AIRMENT SERVICES OUTPT Cons Director Of Accounts Payable's Choice [facility] Apr 28, 2025 10:40 AM Consult Order OT OCCUPAT IONAL THERAPY OUTPT VISION THERAPY [facility] Director Of Accounts Payable's [facility] Lab Results: +/- 30 days of [...] Type Comment February 21, 2025 09:08 AM [facility] COMPREHENSIVE METABOLIC PANEL+MG PLASMA Specim en Type: PLASMA No comment entered. Ordering Provider: KURT NEWELL Report Released Date/Time: Nov 22, 2024 10:51 AM Reporting Lab: [facility] [id number] Performing Lab: [facility] [id number] CREATININE 0.6 mg/dL 0.5-1.0 UREA NITROGEN 10 [...] >90 >60 February 21, 2025 09:08 AM [facility] CBC & DIFF BLOOD Specimen Type: BLOOD Comment: Automated Differential Performed Ordering Provider: KURT NEWELL Report Released Date/Time: Nov 22, 2024 10:51 AM Reporting Lab: [facility] [id number] Performing Lab: [facility] [id number] WBC 6.6 4.0-11.0 RBC 4.66 4.00-5.40 HGB [...] VA-TOBACCO QUIT 5 TO < 15 YRS [facility] Tobacco Use History This section includes a history of the smoking, or tobacco-related health factors, that were collected on or before the date of the Encounter. The data comes from the [facility] where the Encounter took place. Date/Time Smoking Status/Tobacco Use Comment F acility Nov 27, 2023 03:30 PM VA-TOBACCO QUIT 5 TO < 15 YRS [facility] Jan 14, 2023 09:03 AM VA-TOBACCO FORMER USER [facility] Jan 14, 2023 09:03 AM VA-TOBACCO QUIT 5 TO < 15 YRS [facility] Encounter Notes: All associated encounter notes This section contains the clinical notes associated to the Encounter. Date/Time Encounter Note(s) Provider Source March 14, 2025 03:00 PM NO SHOW NOTE: LOCAL TITLE: NO SHOW/CANCELLATION CLINIC NOTE STANDARD TITLE: NO SHOW NOTE DATE OF NOTE: MARCH 14, 2025@15:00 ENTRY DATE: MARCH 14, 2025@15:00:24 AUTHOR: CORETTA RIVERA EXP COSIGNER: URGENCY: STATUS: COMPLETED [place] not seen for scheduled appointment due to: No Show Please schedule next available appointment in the Neurology clinic with Dr. Rivera. Appointment Rescheduled: Please review patient chart and medications for renewal needs (if appropriate). Advise if any further follow-up. Notify this signee as additional signer for notification. /los/ CORETTA RIVERA Signed: 03/14/2025 15:02 CORETTA RIVERA [facility]
--- OUTSIDE RECORDS SUMMARY | 2025-03-20 05:30 | XMS_ITS | Encounter Summary ---
Author Name [facility] [place] Organization [place] Address [address] [place] [address] Care Team Providers Care Rn Pacu Name Role Phone LONA CINDY Primary Care Provider Unavail able Selected Encounter This section includes the information on record at [place] for the Encounter. Date/Time Encounter Type Encounter Description Reason Pro vider Source Mar 20, 2025 10:30 AM Outpatient Encounter PHYSICAL THERAPY IHE Encounter Template Text not used by [place] Plan of Treatment: Future Appointments (+ 6 months) and Future Tests (+/- 45 days) The Plan of Treatment section includes future care activities for the patient from all [place] treatmentfacilities. This section includes future appointments and future orders which are active, pending or scheduled. Future Appointments This section includes appointments that were scheduled to occur 6 months from the date of the Encounter, up to a maximum of 20 appointments. The data comes from all [place] treatment facilities. Appointment Date/Time Appointment Type Appointme nt Facility Name Mar 22, 2025 09:00 AM AMBULATORY - REHAB MEDICIN [facility] Mar 24, 2025 09:00 AM AMBULATORY - REHAB MEDICIN [facility] Apr 11, 2025 01:00 PM AMBULATORY - REHAB MEDICIN [facility] Apr 17, 2025 10:00 AM AMBULATORY - REHAB MEDICIN [facility] Apr 24, 2025 09:00 AM AMBULATORY - REHAB MEDICIN E [facility] Apr 28, 2025 09:30 AM AMBULATORY - SURGERY [facility] May 03, 2025 02:00 PM AMBULATORY - REHAB MEDICIN E [facility] May 05, 2025 08:00 AM AMBULATORY - REHAB MEDICIN E [facility] May 15, 2025 10:00 AM AMBULATORY - REHAB MEDICIN E [facility] May 15, 2025 01:00 PM AMBULATORY - REHAB MEDICIN E [facility] May 29, 2025 11:00 AM AMBULATORY - REHAB MEDICIN E [facility] May 30, 2025 01:45 PM [facility] Jul 14, 2025 10:30 AM AMBULATORY - REHAB MEDICIN E [facility] Active, Pending, and Scheduled Orders This section includes a listing of several types of active, pending, and scheduled orders, including clinic medications orders, diagnostic test orders, procedure orders and consult orders; where the start date of the order is 45 days before the date of the Encounter or 45 days after the date of theEncounter. The data comes from all [place] treatment facilities. Test Date/Time Test Type Test Details Facility Name Apr 28, 2025 10:15 AM Consult Order VISUAL IMP AIRMENT SERVICES OUTPT Cons Structural Biologist's Choice [facility] Apr 28, 2025 10:40 AM Consult Order OT OCCUPAT IONAL THERAPY OUTPT VISION THERAPY [facility] Structural Biologist's [facility] Lab Results: +/- 30 days of [...] Type Comment February 21, 2025 09:08 AM [facility] COMPREHENSIVE METABOLIC PANEL+MG PLASMA Specim en Type: PLASMA No comment entered. Ordering Provider: KURT NEWELL Report Released Date/Time: Nov 22, 2024 10:51 AM Reporting Lab: [facility] [id number] Performing Lab: [facility] [id number] CREATININE 0.6 mg/dL 0.5-1.0 UREA NITROGEN 10 [...] >90 >60 February 21, 2025 09:08 AM [facility] CBC & DIFF BLOOD Specimen Type: BLOOD Comment: Automated Differential Performed Ordering Provider: KURT NEWELL Report Released Date/Time: Nov 22, 2024 10:51 AM Reporting Lab: [facility] [id number] Performing Lab: [facility] [id number] WBC 6.6 4.0-11.0 RBC 4.66 4.00-5.40 HGB [...] and tobacco- related health factors from the [facility] where the Encounter took place. Current Smoking Status This section includes the most current smoking, or tobacco-related health factor, from the [place] facility where the Encounter took place. Date/Time Current Smoking Status Comment Facil ity Nov 27, 2023 03:30 PM VA-TOBACCO QUIT 5 TO < 15 YRS [facility] Tobacco Use History This section includes a history of the smoking, or tobacco-related health factors, that were collected on or before the date of the Encounter. The data comes from the [place] facility where the Encounter took place. Date/Time Smoking Status/Tobacco Use Comment F acility Nov 27, 2023 03:30 PM VA-TOBACCO QUIT 5 TO < 15 YRS [facility] Jan 14, 2023 09:03 AM VA-TOBACCO FORMER USER [facility] Jan 14, 2023 09:03 AM VA-TOBACCO QUIT 5 TO < 15 YRS [facility] Encounter Notes: All associated encounter notes This section contains the clinical notes associated to the Encounter. Date/Time Encounter Note(s) Provider Source Mar 20, 2025 10:33 AM NO SHOW NOTE: LOCAL TITLE: NO SHOW/CANCELLATION CLINIC NOTE STANDARD TITLE: NO SHOW NOTE DATE OF NOTE: MAR 20, 2025@10:33 ENTRY DATE: MAR 20, 2025@10:33:27 AUTHOR: YANICK BRAGG EXP COSIGNER: URGENCY: STATUS: COMPLETED [place] not seen for scheduled PT VVC appointment due to: No Show (or pt has cancelled today's visit but the message has not yet been received by movie writer at the time of this note); patient did not log in within 15 minutes of appointment start time. Called pt ~8 minutes after appointment time and did not receive an answer. Left message and provided [facility] desk number for questions and/or rescheduling. Appointment Rescheduled: Not at this time. /los/ YANICK BRAGG DPT, PHD Physical Therapist Signed: 03/20/2025 14:58 YANICK BRAGG [facility]
--- OUTSIDE RECORDS SUMMARY | 2025-03-20 10:30 | XMS_ITS | Encounter Summary ---
Author Name [facility] [place] ([place] Organization [place] Address [address] [place] [address] Care Team Providers Care Valet Name Role Phone LONA CINDY Primary Care Provider Unavail able Selected Encounter This section includes the information on record at [place] for the Encounter. Date/Time Encounter Type Encounter Description Reason Pro vider Source Mar 20, 2025 03:30 PM Outpatient Encounter PHYSICAL THERAPY IHE Encounter Template [...] 2025 09:00 AM AMBULATORY - REHAB MEDICIN [facility] Mar 24, 2025 09:00 AM AMBULATORY - REHAB MEDICIN [facility] Apr 11, 2025 01:00 PM AMBULATORY - REHAB MEDICIN [facility] Apr 17, 2025 10:00 AM AMBULATORY - REHAB MEDICIN [facility] Apr 24, 2025 09:00 AM AMBULATORY - REHAB MEDICIN E [facility] Apr 28, 2025 09:30 AM AMBULATORY - SURGERY [facility] May 03, 2025 02:00 PM AMBULATORY - REHAB MEDICIN E [facility] May 05, 2025 08:00 AM AMBULATORY - REHAB MEDICIN E [facility] May 15, 2025 10:00 AM AMBULATORY - REHAB MEDICIN E [facility] May 15, 2025 01:00 PM AMBULATORY - REHAB MEDICIN E [facility] May 29, 2025 11:00 AM AMBULATORY - REHAB MEDICIN E [facility] May 30, 2025 01:45 PM [facility] Jul 14, 2025 10:30 AM AMBULATORY - REHAB MEDICIN E [facility] Active, Pending, and Scheduled Orders This [...] Order VISUAL IMP AIRMENT SERVICES OUTPT Cons Hair Spinning Machine Operator's Choice [facility] Apr 28, 2025 10:40 AM Consult Order OT OCCUPAT IONAL THERAPY OUTPT VISION THERAPY [facility] Hair Spinning Machine Operator's [facility] Lab Results: +/- 30 days of [...] Type Comment February 21, 2025 09:08 AM [facility] COMPREHENSIVE METABOLIC PANEL+MG PLASMA Specim en Type: PLASMA No comment entered. Ordering Provider: KURT NEWELL Report Released Date/Time: Nov 22, 2024 10:51 AM Reporting Lab: [facility] [id number] Performing Lab: [facility] [id number] CREATININE 0.6 mg/dL 0.5-1.0 UREA NITROGEN 10 [...] >90 >60 February 21, 2025 09:08 AM [facility] CBC & DIFF BLOOD Specimen Type: BLOOD Comment: Automated Differential Performed Ordering Provider: KURT NEWELL Report Released Date/Time: Nov 22, 2024 10:51 AM Reporting Lab: [facility] [id number] Performing Lab: [facility] [id number] WBC 6.6 4.0-11.0 RBC 4.66 4.00-5.40 HGB [...] 27, 2023 03:30 PM VA-TOBACCO FORMER USER [facility] Tobacco Use History This section includes a history of the smoking, or tobacco-related health factors, that were collected on or before the date of the Encounter. The data comes from the [place] facility where the Encounter took place. Date/Time Smoking Status/Tobacco Use Comment F acility Nov 27, 2023 03:30 PM VA-TOBACCO QUIT 5 TO < 15 YRS [facility] Jan 14, 2023 09:03 AM VA-TOBACCO FORMER USER [facility] Jan 14, 2023 09:03 AM VA-TOBACCO QUIT 5 TO < 15 YRS [facility] Encounter Notes: All associated encounter notes This section contains the clinical notes associated to the Encounter. Date/Time Encounter Note(s) Provider Source Apr 13, 2025 10:17 AM ADDENDUM: LOCAL TITLE: Addendum STANDARD TITLE: ADDENDUM DATE OF NOTE: APR 13, 2025@10:17:06 ENTRY DATE: APR 13, 2025@10:17:07 AUTHOR: OMAR HUTCHINS EXP COSIGNER: URGENCY: STATUS: COMPLETED Attempted to schedule Return to clinic (RTC) Other: Patient has Cancelled or No-show and has failed mandated scheduling efforts. Order has been dispositioned. Responsible Provider notified via additional signer to this note. If calls back, schedule appt for: Activity: 02/28/2025 14:25 New Order entered by AUDREY NEVILLE (REGISTERED NURS) Order Text: Return to [facility] PT YANICK on or around ( Mar 20, 2025 ) for a total of 1 appointment(s) Prerequisites: Notify ordering provider if minimum scheduling efforts fail 30min /es/ OMAR HUTCHINS CLINICAL OPERATIONS DISTRIBUTION SYSTEMS SUPERINTENDENT Signed: 04/13/2025 10:18 Receipt Acknowledged By: 04/18/2025 12:15 /es/ BERTHA Ramirez, RN Yeast Distiller Nurse Electrician Supervisor [employer] PM&R/Neurology Clinics for AUDREY NEVILLE 04/13/2025 15:16 /es/ ALFONSO GELLERT, PHD Physical Therapist --- Original Document --- 03/20/25 APPOINTMENT SCHEDULING NOTE: Attempted to schedule No show Contact: automated no-show letter queued to be sent Contact: Called [place] at: If calls back, schedule appointment for: Activity:02/28/2025 14:25 New Order entered by AUDREY NEVILLE (REGISTERED NURS) Order Text: Return to [facility] PT YANICK on or around ( Mar 20, 2025 ) for a total of 1 appointment(s) Prerequisites: Notify ordering provider if minimum scheduling efforts fail 30min Contact attempt made to 3rd attempt Email /es/ JENNIFER ANNE Signed: 03/20/2025 15:32 OMAR HUTCHINS [facility] Mar 20, 2025 03:30 PM REPORT OF CONTACT: LOCAL TITLE: APPOINTMENT SCHEDULING NOTE STANDARD TITLE: REPORT OF CONTACT DATE OF NOTE: MAR 20, 2025@15:30 ENTRY DATE: MAR 20, 2025@15:30:57 AUTHOR: JENNIFER BEAULIEU EXP COSIGNER: URGENCY: STATUS: COMPLETED APPOINTMENT SCHEDULING NOTE Has ADDENDA Attempted to schedule No show Contact: automated no-show letter queued to be sent Contact: Called Eddington at: If Eddington calls back, schedule appointment for: Activity:02/28/2025 14:25 New Order entered by AUDREY NEVILLE (REGISTERED NURS) Order Text: Return to [facility] PT YANICK on or around ( Mar 20, 2025 ) for a total of 1 appointment(s) Prerequisites: Notify ordering provider if minimum scheduling efforts fail 30min Contact attempt made to [place] 3rd attempt Email /es/ JENNIFER ANNE Signed: 03/20/2025 15:32 04/13/2025 ADDENDUM STATUS: COMPLETED Attempted to schedule Return to clinic (RTC) Other: Patient has Cancelled or No-show and has failed mandated scheduling efforts. Order has been dispositioned. Responsible Provider notified via additional signer to this note. If [place] calls back, schedule appt for: Activity: 02/28/2025 14:25 New Order entered by AUDREY NEVILLE (REGISTERED NURS) Order Text: Return to [facility] PT YANICK on or around ( Mar 20, 2025 ) for a total of 1 appointment(s) Prerequisites: Notify ordering provider if minimum scheduling efforts fail 30min /los/ OAMR HUTCHINS CLINICAL OPERATIONS DISTRIBUTION SYSTEMS SUPERINTENDENT Signed: 04/13/2025 10:18 Receipt Acknowledged By: * AWAITING SIGNATURE * AUDREY NEVILLE * AWAITING SIGNATURE * YANICK BRAGG [facility] A [facility]
--- OUTSIDE RECORDS SUMMARY | 2025-03-22 04:00 | XMS_ITS | Encounter Summary ---
Author Name [facility] [place] [place] Organization [facility] [place] Address [address] [place] [id number] Care Team Providers Care Minibus Driver Name Role Phone LONA, CINDY Primary Care Provider Unavail able Selected Encounter This section includes the information on record at [place] for the Encounter. Date/Time Encounter Type Encounter Description Reason Provider Source Mar 22, 2025 09:00 AM PSYTX W PT 45 MINUTES PAIN CLINIC ICD-10-CM F33.9 Major depressive disorder, recurrent, unspecified JANINA BRAMBILA [place] Encounter Template Text not used by [place] Assessments - Encounter Diagnoses This section includes the primary and secondary diagnoses documented for the Encounter. Date/Time Primary/Secondary Diagnosis Diagnosis Name Provider Source Mar 22, 2025 01:59 PM PRIMARY Major depressive disorder, recurrent, unspecified JANINA BRAMBILA [facility] Mar 22, 2025 01:59 PM SECONDARY Other chronic pain JANINA BRAMBILA [facility] Mar 22, 2025 01:59 PM SECONDARY Personal history of traumatic brain injury JANINA BRAMBILA [facility] Mar 22, 2025 01:59 PM SECONDARY Post-traumatic stress disorder, chronic JANINA BRAMBILA [facility] Plan of Treatment: Future Appointments (+ 6 months) and Future Tests (+/- 45 days) The Plan of Treatment section includes future care activities for the patient [facility] [place] [facility] This section includes future appointments and future orders which are active, pending or scheduled. Future Appointments This section includes appointments that were scheduled to occur 6 months from the date of the Encounter, up to a maximum of 20 appointments. The data comes from all [facility]. Appointment Date/Time Appointment Type Appointme nt Facility Name Mar 24, 2025 09:00 AM AMBULATORY - REHAB MEDICIN E [facility] Apr 11, 2025 01:00 PM AMBULATORY - REHAB MEDICIN E [facility] Apr 17, 2025 10:00 AM AMBULATORY - REHAB MEDICIN E [facility] Apr 24, 2025 09:00 AM AMBULATORY - REHAB MEDICIN E [facility] Apr 28, 2025 09:30 AM AMBULATORY - SURGERY [facility] May 03, 2025 02:00 PM AMBULATORY - REHAB MEDICIN E [facility] May 05, 2025 08:00 AM AMBULATORY - REHAB MEDICIN E [facility] May 15, 2025 10:00 AM AMBULATORY - REHAB MEDICIN E [facility] May 15, 2025 01:00 PM AMBULATORY - REHAB MEDICIN E [facility] May 29, 2025 11:00 AM AMBULATORY - REHAB MEDICIN E [facility] May 30, 2025 01:45 PM AMBULATORY - NONE [facility] Jul 14, 2025 10:30 AM AMBULATORY - REHAB MEDICIN [facility] Active, Pending, and Scheduled Orders This section includes a listing of several types of active, pending, and scheduled orders, including clinic medications orders, diagnostic test orders, procedure orders and consult orders; where the start date of the order is 45 days before the date of the Encounter or 45 days after the date of theEncounter. The data comes from all [facility]. Test Date/Time Test Type Test Details Facility Name Apr 28, 2025 10:15 AM Consult Order VISUAL IMP AIRMENT SERVICES OUTPT Cons Tag Clerk's Choice [facility] Apr 28, 2025 10:40 AM Consult Order OT OCCUPAT IONAL THERAPY OUTPT VISION THERAPY [facility] Tag Clerk's [facility] Lab Results: +/- 30 days of the [...] Type Comment February 21, 2025 09:08 AM [facility] CBC & DIFF BLOOD Specimen Type: BLOOD Comment: Automated Differential Performed Ordering Provider: KURT NEWELL Report Released Date/Time: Nov 22, 2024 10:51 AM Reporting Lab: [facility] [id number] Performing Lab: [facility] [id number] WBC 6.6 4.0-11.0 RBC 4.66 4.00-5.40 HGB [...] IG(META,MYELO,PRO) 0.3 ABS IMMATURE GRAN 0.0 0.0-0.1 February 21, 2025 09:08 AM [facility] COMPREHENSIVE METABOLIC PANEL+MG PLASMA Specimen Type: PLASMA No comment entered. Ordering Provider: KURT NEWELL Report Released Date/Time: Nov 22, 2024 10:51 AM Reporting Lab: [facility] [id number] Performing Lab: [facility] [id number] CREATININE 0.6 mg/dL 0.5-1.0 UREA NITROGEN 10 [...] 18 U/L 11-34 .CREAT EGFR(CKD-EPI) >90 >60 Social History: Smoking Status (Most current) and Tobacco Use (All prior to encounter date) This section includes the most current, and the historical, smoking and tobacco- related health factors from the [place] facility where the Encounter took place. Current Smoking Status This section includes the most current smoking, or tobacco-related health factor, from the [place] facility where the Encounter took place. Date/Time Current Smoking Status Comment Srini zaldivar Nov 27, 2023 03:30 PM VA-TOBACCO FORMER USER [facility] Tobacco Use History This section includes a history of the smoking, or tobacco-related health factors, that were collected on or before the date of the Encounter. The data comes from the [place] facility where the Encounter took place. Date/Time Smoking Status/Tobacco Use Comment Marvin alvarenga Nov 27, 2023 03:30 PM VA-TOBACCO QUIT 5 TO < 15 YRS [facility] Jan 14, 2023 09:03 AM VA-TOBACCO FORMER USER [facility] Jan 14, 2023 09:03 AM VA-TOBACCO QUIT 5 TO < 15 YRS [facility] Encounter Notes: All associated encounter notes This section contains the clinical notes associated to the Encounter. Date/Time Encounter Note(s) Provider Source Mar 22, 2025 09:00 AM PHYSICAL MEDICINE REHAB NOTE: LOCAL TITLE: REHAB PSYCHOLOGY PROGRESS NOTE STANDARD TITLE: PHYSICAL MEDICINE REHAB NOTE DATE OF NOTE: MAR 22, 2025@09:00 ENTRY DATE: MAR 22, 2025@10:15:31 AUTHOR: JANINA BRAMBILA EXP COSIGNER: URGENCY: STATUS: COMPLETED [facility] - Individual pain psychology visit TIME: Psychotherapy x 50 minutes Informed Consent: Informed consent for treatment and confidentiality and limits and benefits of treatment were reviewed with patient and they indicated understanding and agreement in the first session. Visit conducted by synchronous telehealth. [place] verbal consent obtained. Location/emergency number confirmed. Environment surveyed and all participants identified. Faviola's spouse was present with her consent. Virtual conference room locked. SESSION #3: Faviola was last seen on 01/23/25. She reports withdrawing from therapies for some time d/t an increase in derpessive sxs associated with being rejected for an increase in financial support from the caregiver support program and difficulties adjusting to her medical condition. Faviola expressed a strong desire for a curative approach and expectations for her to return to her level of functioning prior to her TBI. Whiskey Filterer provided supportive listening and validation of her experiences. Faviola also revisited PNE concepts and discussed how her experiences fit into the CBT for chronic pain model. We discussed the connections between thoughts, emotions, behaviors, and pain and emphasized how wishful thinking, catastrophizing, avoidance, depression, anger and pain are all related. Faviola also shared her tendency for overactivity and we went over the overactivity cycle and how this maintains chronic pain. Faviola voiced appreciation of this information. She feels more motivated to engage in pain therapies and we will focus on determining goals of pain psychology at our next appointment. MENTAL STATUS: Participant [...] at this time. PATIENT EDUCATION AND UNDERSTANDING: [place] indicated readiness to learn for the education [...] /es/ JANINA BRAMBILA, PHD STAFF PSYCHOLOGIST Signed: 03/22/2025 13:59 JANINA BRAMBILA [facility]
--- OUTSIDE RECORDS SUMMARY | 2025-03-24 04:00 | XMS_ITS | Encounter Summary ---
Author Name [facility] [place] [facility] [place] Organization [facility] [place] Address [address] [place] [address] Care Team Providers Care Table Games Supervisor Name Role Phone CINDY ZAMORANO Primary Care Provider Unavail able Selected Encounter This section includes the information on record at [place] for the Encounter. Date/Time Encounter Type Encounter Description Reason Provider Source Mar 24, 2025 09:00 AM COMMUNITY/WORK REINTEGRATION OCCUPATIONAL THERAPY ICD-10-CM M54.6 Pain in thoracic spine CAMILLE HERNANDEZ [place] Encounter Template Text not used by [place] Assessments - Encounter Diagnoses This section includes the primary and secondary diagnoses documented for the Encounter. Date/Time Primary/Secondary Diagnosis Diagnosis Name Provider Source Mar 26, 2025 01:29 PM PRIMARY Pain in thoracic spine CAMILLE HERNANDEZ [facility] Plan of Treatment: Future Appointments (+ 6 months) and Future Tests (+/- 45 days) The Plan of Treatment section includes future care activities for the patient from all [place] treatmentfacilities. This section includes future appointments and future orders which are active, pending or scheduled. Future Appointments This section includes appointments that were scheduled to occur 6 months from the date of the Encounter, up to a maximum of 20 appointments. The data comes from all [place] treatment facilities. Appointment Date/Time Appointment Type Appointme nt Facility Name Apr 11, 2025 01:00 PM AMBULATORY - REHAB MEDICIN E [facility] Apr 17, 2025 10:00 AM AMBULATORY - REHAB MEDICIN E [facility] Apr 24, 2025 09:00 AM AMBULATORY - REHAB MEDICIN E [facility] Apr 28, 2025 09:30 AM AMBULATORY - SURGERY [facility] May 03, 2025 02:00 PM AMBULATORY - REHAB MEDICIN E [facility] May 05, 2025 08:00 AM AMBULATORY - REHAB MEDICIN E [facility] May 15, 2025 10:00 AM AMBULATORY - REHAB MEDICIN E [facility] May 15, 2025 01:00 PM AMBULATORY - REHAB MEDICIN E [facility] May 29, 2025 11:00 AM AMBULATORY - REHAB MEDICIN E [facility] May 30, 2025 01:45 PM [place] Jul 14, 2025 10:30 AM AMBULATORY - REHAB MEDICIN E [facility] Active, Pending, and Scheduled Orders This [...] Order VISUAL IMP AIRMENT SERVICES OUTPT Cons Assembly Detailer[facility] Choice [facility] Apr 28, 2025 10:40 AM Consult Order OT OCCUPAT IONAL THERAPY OUTPT VISION THERAPY [facility] Assembly Detailer[facility] Social History: Smoking Status (Most current) and [...] VA-TOBACCO QUIT 5 TO < 15 YRS [facility] Tobacco Use History This section includes a history of the smoking, or tobacco-related health factors, that were collected on or before the date of the Encounter. The data comes from the [place] facility where the Encounter took place. Date/Time Smoking Status/Tobacco Use Comment F lyle Nov 27, 2023 03:30 PM VA-TOBACCO QUIT 5 TO < 15 YRS [facility] Jan 14, 2023 09:03 AM IN-TOBACCO FORMER USER [facility] Jan 14, 2023 09:03 AM VA-TOBACCO QUIT 5 TO < 15 YRS [facility] Encounter Notes: All associated encounter notes This section contains the clinical notes associated to the Encounter. Date/Time Encounter Note(s) Provider Source Mar 24, 2025 07:56 AM OCCUPATIONAL THERA PY NOTE: LOCAL TITLE: OT-PROGRESS NOTE STANDARD TITLE: OCCUPATIONAL THERAPY NOTE DATE OF NOTE: MAR 24, 2025@07:56 ENTRY DATE: MAR 24, 2025@07:56:16 AUTHOR: CAMILLE HERNANDEZ EXP COSIGNER: URGENCY: STATUS: [facility] Occupational Therapy Progress Note Treatment: Treatment Diagnosis: Widespread pain Referring Provider: ADELINE MINAYA Date of Initial: Dec Precautions: # of Visits: 2 Pt seen March 24, 2025 for Self-Care Management and Training 45 min Community/Work Reintegration 8 min SYSTEMS SCREEN ___ Relevant past medical/surgical history and personal factors impacting rehab: --- Any recent changes in your physical health e.g., falls/trauma, worsening balance/coordination, dizziness/ lightheadedness/ fainting, blurred vision, nausea/vomiting? Denies falls, ongoing challenges with LE weakness and balance --- Any recent changes in mental health including symptoms of depression, anxiety, or PTSD impacting safety or functioning? Denies, finds an improvement with her MH in recent History H & P: For full HPI see [facility] Note dated 12/02/2024. Briefly, diane is a 34 y.o. consulted to OT [...] in garage, 6 steps in front door Subjective: Reports on time to [facility] visit, seated on rollator. Three-month lapse in visits since initial evaluation. Reports when Gabapentin dosage was doubled, she felt very drowsy, fell asleep at times during conversations. Switched to only doubling dosage at night which is helping her sleep well at night. Takes the edge off pain to the point where she feels like her function is better. Has some good days where she notices feeling almost back to normal, but if dosages are off, she will be in a lot of pain. Shower chair has been helpful, has not installed grab bars yet Tremors are nonexistent now which has been a big relief- so lifechanging for me Pain and weakness - feels weakness continues to be a large part of the picture as well OT Treatment Objective: + Time spent today establishing therapeutic rapport and gathering additional information to inform treatment planning. Sent outcome measures over SM for rachel to fill out prior to next visit Activity: Feels she has been working hard to regain function + Taking rollator and walking in front of her home as much as possible, takes seated breaks in her rollator. Finds this has helped her MH as well + Has been using SEC to go up and down the porch steps in front of her home independently, rather than needing help from her . Does not feel confident walking a full flight of stairs without her yet + Wondering about electric scooter and how to qualify for this. Educated that there are specific criteria and encouraged rachel to discuss with PCP. Also emphasized benefit of taking rehab approach, highlighting vet progress in just the last couple months + Vemarylou reports it is hard to not feel like she can do the things she used to, excluded from family events Typical day: gets up with kids, vet wakes up at 7 with alarm for meds, vet usually stays in bed, gets out of bed, goes to sit with family. When she gets tired of sitting up, will go lie down for 30-60 min. Then gets up and watches kids play outside, vet goes out with them. Community/Work Reintegration Significant anger, impulsive thoughts, hx of impulsive behaviors I overreact a lot- feels her helps restrain her so many instances I'm just not thinking the way I should Challenge with flexibility and adaptability Discussed fear of being in public alone as she is concerned about her TBI causing her to suddenly act erratically/impulsively and potentially be arrested by law enforcement. Educated on option for medical ID bracelet to help feel more comfortable if she is ever alone in public. Issue through [employer] Medical ID bracelet 9 Awais Padilla Traumatic Brain Injury Contact: Paulo Padilla CURRENT STRATEGIES FOR PAIN SELF MANAGEMENT: + [...] tolerance: 10 min Sitting tolerance: 15 min Headache Symptoms Triggers: Driving, stress Pattern: Starts in orbital area Frequency: Multiple times per week Impact: Rizatriptan and taking naps is helpful PHYSICAL EVALUATION: Observation: Vet seen over [facility], seated for majority of visit on rollator. Demonstrated functional AROM of UE and neck throughout evaluation. Education Patient indicates readiness to learn, verbalizes understanding, agreement and satisfaction with the treatment plan. Denies further questions. Goals Prior to discharge from OT services [...] shower transfer with min A from spouse PROGRESSING 3) Vet will complete toilet transfer and toileting hygiene with modified independence using adaptive equipment. MET 4) Vet will verbalize understanding of 1-2 [...] her spouse and 4 children in a [facility], reports a sedentary lifestyle with significant [...] and bottom up approaches to pain treatment. Maryjanet seen for first follow-up visit today following 3-month lapse in visits. Focus of session on establishing therapeutic rapport and gathering additional information to inform treatment planning. Also recommended and issued medical ID bracelet for vet safety in community. Appropriate for ongoing [facility] OT plan of care to maximize participation in meaningful occupations and improve quality of life. Other Services: [facility] PT, Psychology Treatment Plan Pt will be seen on an outpatient status; Plan of care is as follows: Pt is appropriate for occupational therapy services at this time Pt to RTC in 2 weeks for 60 min session X 5-10, scheduled every other week Plan F/U: PROMIS, PSEQ, intro PNE, collaborate for SMART goals - PNE and applications (pacing, task modification, [...] profile- if in-person - myofascial and neurodynamics (slsukumar, UE) TBA as indicated -Present note will serve as discharge note if vet does not present for follow-up within 8 wks Recommendation considerations: rec therapy, CIHH, whole health coaching, Pain 101, CPRP, acupuncture CVT Documentation- Confirmed the following prior to start of visit: - identified by Full name and Full Social Security number. -[place] has provided verbal consent to use [employer] ([employer]) and was informed of their right to request a ifaa-ni-fgfc visit instead at any time. -[place] states he/she is in a safe and private environment suitable for the Telehealth encounter. Visit conducted by synchronous telehealth. [place] verbal consent obtained. Location/emergency number confirmed. Environment surveyed and all participants identified. Virtual conference room locked. -Visit conducted by telehealth into the home using: -Smart Phone Email: Troubleshooting required during visit: Others present: Paulo Location of patient during session: [facility] [address] [place] [id number] Emergency phone number (e911): [phone] [facility] Crisis Line: 988 & press #1 or text [phone] [facility] Telehealth Technology Help Desk (NTTHD): [phone] or [phone]. /los/ CAMILLE HERNANDEZ OTR/Nikita OCCUPATIONAL THERAPIST Signed: 03/26/2025 13:47 CAMILLE HERNANDEZ [facility]
--- OUTSIDE RECORDS SUMMARY | 2025-03-27 06:02 | XMS_ITS | Encounter Summary ---
Author Name [facility] [place] Organization [place] Address [address] [place] [address] Care Team Providers Care Precinct I Police Sergeant Name Role Phone CINDY ZAMORANO Primary Care Provider Unavail able Selected Encounter This section includes the information on record at [place] for the Encounter. Date/Time Encounter Type Encounter Description Reason Pro vider Source Mar 27, 2025 11:02 AM Outpatient Encounter OCCUPATIONAL THERAPY IHE Encounter Template Text not used by [place] [...] 2025 01:00 PM AMBULATORY - REHAB MEDICIN [facility] Apr 17, 2025 10:00 AM AMBULATORY - REHAB MEDICIN [facility] Apr 24, 2025 09:00 AM AMBULATORY - REHAB MEDICIN [facility] Apr 28, 2025 09:30 AM AMBULATORY - SURGERY [facility] May 03, 2025 02:00 PM AMBULATORY - REHAB MEDICIN E [facility] May 05, 2025 08:00 AM AMBULATORY - REHAB MEDICIN E [facility] May 15, 2025 10:00 AM AMBULATORY - REHAB MEDICIN E [facility] May 15, 2025 01:00 PM AMBULATORY - REHAB MEDICIN E [facility] May 29, 2025 11:00 AM AMBULATORY - REHAB MEDICIN E [facility] May 30, 2025 01:45 PM [facility] Jul 14, 2025 10:30 AM AMBULATORY - [facility] MEDICIN [facility] [place] [...] data comes from all [place] treatment facilities. Test Date/Time Test Type Test Details Facility Name Apr 28, 2025 10:15 AM Consult Order VISUAL IMP AIRMENT SERVICES OUTPT Cons Baseball Glove Stuffer's Choice [facility] Apr 28, 2025 10:40 AM Consult Order OT OCCUPAT IONAL THERAPY OUTPT VISION THERAPY Cons Baseball Glove Stuffer's Choice [facility] Social History: Smoking Status [...] 5 TO < 15 YRS [facility] Encounter Notes: All associated encounter notes This section contains the clinical notes associated to the Encounter. Date/Time Encounter Note(s) Provider Source Apr 13, 2025 10:14 AM ADDENDUM: LOCAL TITLE: Addendum STANDARD TITLE: ADDENDUM DATE OF NOTE: APR 13, 2025@10:14:58 ENTRY DATE: APR 13, 2025@10:14:59 AUTHOR: OMAR HUTCHINS EXP COSIGNER: URGENCY: STATUS: COMPLETED Attempted to schedule Return to clinic (RTC) Other: Patient has not responded to scheduling contact attempts for below RTC Order - has failed mandated scheduling effort. RTC Order has been dispositioned. Responsible provider notified via additional signer to this note. If [place] calls back, schedule appt for: Activity: 03/24/2025 09:56 New Order entered by CAMILLE HERNANDEZ (OCCUPATIONAL TH) Order Text: Return to [facility] OT CAMILLE on or around ( Apr 07, 2025 ) for a total of 1 appointment(s) Prerequisites: Notify ordering provider if minimum scheduling efforts fail 60 min VVC /los/ OMAR HUTCHINS CLINICAL OPERATIONS CHEESE WEIGHER Signed: 04/13/2025 10:15 Receipt Acknowledged By: 04/13/2025 11:14 /los/ CAMILLE HERNANDEZ OTR/L OCCUPATIONAL THERAPIST --- Original Document --- 03/27/25 APPOINTMENT SCHEDULING NOTE: Attempted to schedule Return to clinic (RTC) Contact attempt made to 1st attempt Telephone 2nd attempt Letter - Sent letter by regular [place] mail to address on file: [address] [address] [place], [place] [address] 3rd attempt Email Left message on voice mail to call back to this number [phone] If [place] calls back, schedule appt for: Activity: 03/24/2025 09:56 New Order entered by CAMILLE HERNANDEZ (OCCUPATIONAL TH) Order Text: Return to [facility] OT [place] on or around ( Apr 07, 2025 ) for a total of 1 appointment(s) Prerequisites: Notify ordering provider if minimum scheduling efforts fail 60 min VVC Nature of Order: ELECTRONICALLY ENTERED Elec Signature: CAMILLE HERNANDEZ (OCCUPATIONAL TH) on 03/24/2025 09:56 /los/ PAT LAU MSA Signed: 03/27/2025 11:04 OMAR HUTCHINS [facility] Mar 27, 2025 11:02 AM REPORT OF CONTACT: LOCAL TITLE: APPOINTMENT SCHEDULING NOTE STANDARD TITLE: REPORT OF CONTACT DATE OF NOTE: MAR 27, 2025@11:02 ENTRY DATE: MAR 27, 2025@11:03 AUTHOR: PAT LAU COSIGNER: URGENCY: STATUS: COMPLETED APPOINTMENT SCHEDULING NOTE Has ADDENDA Attempted to schedule Return to clinic (RTC) Contact attempt made to [place] 1st attempt Telephone 2nd attempt Letter - Sent letter by regular [place] mail to address on file: [address] [address] [place], [place] [address] 3rd attempt Email Left message on voice mail to call back to this number [phone] If calls back, schedule appt for: Activity: 03/24/2025 09:56 New Order entered by CAMILLE HERNANDEZ (OCCUPATIONAL TH) [facility]: [facility] or around ( Apr 07, 2025 ) for a total of 1 appointment(s) Prerequisites: Notify ordering provider if minimum scheduling efforts fail 60 min VVC Nature of Order: ELECTRONICALLY ENTERED Elec Signature: CAMILLE HERNANDEZ (OCCUPATIONAL TH) on 03/24/2025 09:56 /los/ PAT LAU MSA Signed: 03/27/2025 11:04 04/13/2025 ADDENDUM STATUS: COMPLETED Attempted to schedule Return to clinic (RTC) Other: Patient has not responded to scheduling contact attempts for below RTC Order - has failed mandated scheduling effort. RTC Order has been dispositioned. Responsible provider notified via additional signer to this note. If [place] calls back, schedule appt for: Activity: 03/24/2025 09:56 New Order entered by CAMILLE HERNANDEZ (OCCUPATIONAL TH) Order Text: [facility] [place] or around ( Apr 07, 2025 ) for a total of 1 appointment(s) Prerequisites: Notify ordering provider if minimum scheduling efforts fail 60 min LISANDRO /los/ OMAR HUTCHINS CLINICAL OPERATIONS CHEESE WEIGHER Signed: 04/13/2025 10:15 Receipt Acknowledged By: * AWAITING SIGNATURE * CAMILLE HERNANDEZ CRYSTLE R [facility]
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
--- OUTSIDE RECORDS SUMMARY | 2025-04-14 06:02 | XMS_ITS | Encounter Summary ---
Author Name Department of [place] Organization [place] Address [address] [place] [address] Care Team Providers Care Administrative Resources Associate Name Role Phone CINDY ZAMORANO Primary Care Provider Unavail able Selected Encounter This section includes the information on record at [place] for the Encounter. Date/Time Encounter Type Encounter Description Reason Pro vider Source Apr 14, 2025 11:02 AM Outpatient Encounter OCCUPATIONAL THERAPY [...] 2025 10:00 AM AMBULATORY - REHAB MEDICIN [facility] Apr 24, 2025 09:00 AM AMBULATORY - REHAB MEDICIN [facility] Apr 28, 2025 09:30 AM AMBULATORY - SURGERY [facility] May 03, 2025 02:00 PM AMBULATORY - REHAB MEDICIN [facility] May 05, 2025 08:00 AM AMBULATORY - REHAB MEDICIN E [facility] May 15, 2025 10:00 AM AMBULATORY - REHAB MEDICIN E [facility] May 15, 2025 01:00 PM AMBULATORY - REHAB MEDICIN E [facility] May 29, 2025 11:00 AM AMBULATORY - REHAB MEDICIN E [facility] May 30, 2025 01:45 PM AMBULATORY - NONE [place] [facility] Jul 14, 2025 10:30 AM AMBULATORY - REHAB MEDICIN E [facility] Active, Pending, and Scheduled Orders This section [...] Order VISUAL IMP AIRMENT SERVICES OUTPT Cons Used Car Lot Attendant's Choice [facility] Apr 28, 2025 10:40 AM Consult Order OT OCCUPAT IONAL THERAPY OUTPT VISION THERAPY [facility] Used Car Lot Attendant's [facility] Social History: Smoking Status (Most current) and [...] place. Date/Time Smoking Status/Tobacco Use Comment Marvin acdarline Nov 27, 2023 03:30 PM VA-TOBACCO QUIT 5 TO < 15 YRS [facility] Jan 14, 2023 09:03 AM VA-TOBACCO FORMER USER [facility] Jan 14, 2023 09:03 AM VA-TOBACCO QUIT 5 TO < 15 YRS [facility] Encounter Notes: All associated encounter notes This section contains the clinical notes associated to the Encounter. Date/Time Encounter Note(s) Provider Source Apr 14, 2025 11:02 AM REPORT OF CONTACT: LOCAL TITLE: APPOINTMENT SCHEDULING NOTE STANDARD TITLE: REPORT OF CONTACT DATE OF NOTE: APR 14, 2025@11:02 ENTRY DATE: APR 14, 2025@11:02:18 AUTHOR: ABBIE CALLOWAY EXP COSIGNER: URGENCY: STATUS: COMPLETED Attempted to schedule Return to clinic (RTC) Contact attempt made to 1st attempt Telephone 2nd attempt Email 3rd attempt Letter - Sent letter by regular [place] mail to address on file: [address] [address] [place], [place] [address] Left message on voice mail to call back to this number [phone] If [place] calls back, schedule appt for: Return to [facility] OT [place] on or around ( Apr 24, 2025 ) for a total of 1 appointment(s) Prerequisites: Notify ordering provider if minimum scheduling efforts fail 60 min VVC /los/ ABBIE CALLOWAY Medical Support Assitant Signed: 04/14/2025 11:02 ABBIE CALLOWAY [facility]
--- OUTSIDE RECORDS SUMMARY | 2025-04-14 06:04 | XMS_ITS | Encounter Summary ---
Author Name Department of [place] Organization [place] Address [address] [place] [address] Care Team Providers Care Can Slider Name Role Phone LONA CINDY Primary Care Provider Unavail able Selected Encounter This section includes the information on record at [place] for the Encounter. Date/Time Encounter Type Encounter Description Reason Pro vider Source Apr 14, 2025 11:04 AM Outpatient Encounter PAIN CLINIC IHE Encounter Template Text not used by [place] Plan of Treatment: Future Appointments (+ 6 months) and Future Tests (+/- 45 days) The Plan of Treatment section includes future care activities for the patient from all [place] treatmentfacilities. This section includes future appointments and future orders which are active, pending or scheduled. Future Appointments This section includes appointments that were scheduled to occur 6 months from the date of the Encounter, up to a maximum of 20 appointments. The data comes from all [place] treatment facilities. Appointment Date/Time Appointment Type Appointme nt Facility Name Apr 17, 2025 10:00 AM AMBULATORY - REHAB MEDICIN [facility] Apr 24, 2025 09:00 AM AMBULATORY - REHAB MEDICIN [facility] Apr 28, 2025 09:30 AM AMBULATORY - SURGERY [facility] May 03, 2025 02:00 PM AMBULATORY - REHAB MEDICIN [facility] May 05, 2025 08:00 AM AMBULATORY - REHAB MEDICIN E [facility] May 15, 2025 10:00 AM AMBULATORY - REHAB MEDICIN E [facility] May 15, 2025 01:00 PM AMBULATORY - REHAB MEDICIN E [facility] May 29, 2025 11:00 AM AMBULATORY - REHAB MEDICIN E [facility] May 30, 2025 01:45 PM AMBULATORY - NONE [place] [facility] Jul 14, 2025 10:30 AM AMBULATORY - REHAB MEDICIN E [place] [...] Order VISUAL IMP AIRMENT SERVICES OUTPT Cons Property Appraiser's Choice [facility] Apr 28, 2025 10:40 AM Consult Order OT OCCUPAT IONAL THERAPY OUTPT VISION THERAPY [facility] Property Appraiser's [facility] Social History: Smoking Status (Most current) and [...] 27, 2023 03:30 PM VA-TOBACCO FORMER USER [facility] Tobacco Use History This section includes a history of the smoking, or tobacco-related health factors, that were collected on or before the date of the Encounter. The data comes from the [place] facility where the Encounter took place. Date/Time Smoking Status/Tobacco Use Comment F acility Nov 27, 2023 03:30 PM VA-TOBACCO QUIT 5 TO < 15 YRS [facility] Jan 14, 2023 09:03 AM VA-TOBACCO FORMER USER [facility] Jan 14, 2023 09:03 AM VA-TOBACCO QUIT 5 TO < 15 YRS [facility] Encounter Notes: All associated encounter notes This section contains the clinical notes associated to the Encounter. Date/Time Encounter Note(s) Provider Source Apr 14, 2025 11:05 AM REPORT OF CONTACT: LOCAL TITLE: APPOINTMENT SCHEDULING NOTE STANDARD TITLE: REPORT OF CONTACT DATE OF NOTE: APR 14, 2025@11:05 ENTRY DATE: APR 14, 2025@11:05:04 AUTHOR: ABBIE CALLOWAY COSIGNER: URGENCY: STATUS: COMPLETED Attempted to schedule Return to clinic (RTC) Contact attempt made to 1st attempt Telephone 2nd attempt Email 3rd attempt Letter - Sent letter by regular [place] mail to address on file: [address] [address] [place], [place] [address] Left message on voice mail to call back to this number If [place] calls back, schedule appt for: Return to [facility] on or around ( Jul 11, 2025 ) for a total of 1 appointment(s) 30 min /los/ ABBIE CALLOWAY Medical Support Assitant Signed: 04/14/2025 11:05 ABBIE CALLOWAY [facility]
--- OUTSIDE RECORDS SUMMARY | 2025-04-17 05:00 | XMS_ITS | Encounter Summary ---
Author Name [facility] [place] Organization [facility] [place] Address [address] [place] [id number] Care Team Providers Care Production Line Solderer Name Role Phone LONA, CINDY Primary Care Provider Unavail able Selected Encounter This section includes the information on record at [place] for the Encounter. Date/Time Encounter Type Encounter Description Reason Provider Source Apr 17, 2025 10:00 AM PSYTX W PT 45 MINUTES PAIN CLINIC ICD-10-CM F43.12 Post-traumatic stress disorder, chronic JANINA BRAMBILA [place] Encounter Template Text not used by [place] Assessments - Encounter Diagnoses This section includes the primary and secondary diagnoses documented for the Encounter. Date/Time Primary/Secondary Diagnosis Diagnosis Name Provider Source Apr 19, 2025 07:49 PM PRIMARY Post-traumatic stress disorder, chronic JANINA BRAMBILA [facility] Apr 19, 2025 07:49 PM SECONDARY Anxiety disorder, unspecified JANINA BRAMBILA [facility] Apr 19, 2025 07:49 PM SECONDARY Major depressive disorder, recurrent, unspecified JANINA BRAMBILA [facility] Apr 19, 2025 07:49 PM SECONDARY Other chronic pain JANINA BRAMBILA [facility] Plan of Treatment: Future Appointments (+ 6 months) and Future Tests (+/- 45 days) The Plan of Treatment section includes future care activities for the patient [facility] [place] [facility] This section includes future appointments and future orders which are active, pending or scheduled. Future Appointments This section includes appointments that were scheduled to occur 6 months from the date of the Encounter, up to a maximum of 20 appointments. The data comes from all [facility]. Appointment Date/Time Appointment Type Appointme nt Facility Name Apr 24, 2025 09:00 AM AMBULATORY - REHAB MEDICIN E [facility] Apr 28, 2025 09:30 AM AMBULATORY - SURGERY [facility] May 03, 2025 02:00 PM AMBULATORY - REHAB MEDICIN E [facility] May 05, 2025 08:00 AM AMBULATORY - REHAB MEDICIN E [facility] May 15, 2025 10:00 AM AMBULATORY - REHAB MEDICIN E [facility] May 15, 2025 01:00 PM AMBULATORY - REHAB MEDICIN E [facility] May 29, 2025 11:00 AM AMBULATORY - REHAB MEDICIN E [facility] May 30, 2025 01:45 PM [facility] Jul 14, 2025 10:30 [facility] Active, Pending, and Scheduled Orders This section includes a listing of several types of active, pending, and scheduled orders, including clinic medications orders, diagnostic test orders, procedure orders and consult orders; where the start date of the order is 45 days before the date of the Encounter or 45 days after the date of theEncounter. The data comes from all [facility]. Test Date/Time Test Type Test Details Facility Name Apr 28, 2025 10:15 AM Consult Order VISUAL IMPAIRMENT SERVICES OUTPT Cons Stripper [facility] Apr 28, 2025 10:40 AM Consult Order OT OCCUPATIONAL THERAPY OUTPT VISION THERAPY Cons Stripper [facility] May 30, 2025 01:45 PM Imaging - Magnetic Resonance Imaging (MRI) Order MRI-T-SPINE (P) [facility] Social History: Smoking Status (Most [...] 27, 2023 03:30 PM VA-TOBACCO FORMER USER [facility] Tobacco Use History This section includes a history of the smoking, or tobacco-related health factors, that were collected on or before the date of the Encounter. The data comes from the [place] facility where the Encounter took place. Date/Time Smoking Status/Tobacco Use Comment F acility Nov 27, 2023 03:30 PM VA-TOBACCO QUIT 5 TO < 15 YRS [facility] Jan 14, 2023 09:03 AM VA-TOBACCO FORMER USER [facility] Jan 14, 2023 09:03 AM VA-TOBACCO QUIT 5 TO < 15 YRS [facility] Encounter Notes: All associated encounter notes This section contains the clinical notes associated to the Encounter. Date/Time Encounter Note(s) Provider Source Apr 17, 2025 10:22 AM PHYSICAL MEDICINE REHAB NOTE: LOCAL TITLE: REHAB PSYCHOLOGY PROGRESS NOTE STANDARD TITLE: PHYSICAL MEDICINE REHAB NOTE DATE OF NOTE: APR 17, 2025@10:22 ENTRY DATE: APR 17, 2025@10:22:45 AUTHOR: JANINA BRAMBILA EXP COSIGNER: URGENCY: STATUS: [...] confirmed. Environment surveyed and all participants identified. Mena's spouse was present with her consent. Virtual conference room locked. SESSION #4: We spent the majory of our appointment discussing goals of therapy. Sign Maintenance introduced Faviola to the concept of SMART goals and she voiced understanding of this. She identified goals as written below. Faviola is excited as she is attending a water aerobics class today introduced by her friend. She voiced concerns of keeping up with the class and overdoing activity. We discussed the cognitions she has associated with this that focus on perceptions she has of how she used to be and what success means. She voiced understanding that addressing these thoughts during the course of treatment will be helpful. Sign Maintenance briefly introduced her to the concept of pacing. She voiced understanding of the rationale for time-based vs. pain-based pacing. Faviola will observe how long she can be active in this class to inform pacing in the future. We discussed RTC plan. MENTAL STATUS: Participant [...] at this time. PATIENT EDUCATION AND UNDERSTANDING: Mena indicated readiness to learn for the education provided during this session as noted above. The also indicated understanding by asking questions and making appropriate comments. PROGRESS TOWARD GOALS: 1) Attend water aerobics and establish a regular schedule of this. - ongoing 2) Explore ways to be more involved with daughter's softball. - ongoing 3) Learn strategies to walk on uneven surfaces so she can take kids to the beach - ongoing DIAGNOSIS: (per chart) #1 Other chronic pain #2 PTSD #3 Major depressive disorder, recurrent, unspecified #4 Anxiety disorder, unspecified #5 h/o TBI PLAN: The Patient is in agreement with the treatment goals and plan. -Continue with CBT for chronic pain and determine goals at next appointment. -RTC 1 - 2 weeks /los/ JANINA BRAMBILA, PHD STAFF PSYCHOLOGIST Signed: 04/19/2025 20:00 JANINA BRAMBILA [facility] Apr 17, 2025 10:00 AM MENTAL HEALTH SHILA TMENT PLAN NOTE: LOCAL TITLE: TREATMENT PLAN STANDARD TITLE: MENTAL HEALTH TREATMENT PLAN NOTE DATE OF NOTE: APR 17, 2025@10:00 ENTRY DATE: APR 19, 2025@20:00:41 AUTHOR: JANINA BRAMBILA EXP COSIGNER: URGENCY: STATUS: COMPLETED TREATMENT PLAN TYPE: Initial MENTAL HEALTH TEAM ASSIGNMENT: [facility] MENTAL HEALTH FARM EQUIPMENT ASSEMBLER (MHTC): Keli Buckley, PhD TEAM MEMBERS & OTHER COLLABORATORS CONTRIBUTING TO THE 'S CARE AND TREATMENT PLAN: Janina Barmbila, PhD PARTICIPATION IN TREATMENT PLANNING: Met with provider and agreed to plan as discussed DIAGNOSIS: #1 Other chronic pain #2 PTSD #3 Major depressive disorder, recurrent, unspecified #4 Anxiety disorder, unspecified #5 h/o TBI SUICIDE RISK ASSESSMENT: Acute low Chronic intermediate Suicide risk factors include: - chronic health [...] - support through medical/mental health care relationships IDENTIFIED PROBLEMS: Chronic pain STRENGTHS: Supportive spouse Intelligence BARRIERS: Memory Varying motivation for treatment GOALS: 1) Attend water aerobics and establish a regular schedule of this. - ongoing 2) Explore ways to be more involved with daughter's softball. - ongoing 3) Learn strategies to walk on uneven surfaces so she can take kids to the beach - ongoing INTERVENTION(S)/OBJECTIVE METHODS TO ACCOMPLISH GOALS: Individual Psychotherapy with: Janina Brambila, PhD The therapist will assess symptoms at each visit and provide psychoeducation regarding diagnoses and specific interventional strategies. The agrees to ask questions if they have concerns or do not fully understand content or expectations of therapy. will regularly attend appointments and complete agreed upon out-of- session assignments. The frequency of individual appointments will be reassessed by the provider and with each appointment and documented in the progress note. Clinician will provide information regarding available [place] MH treatment options. Overall MH treatment needs will be periodically assessed at visits. Mena will be encouraged to involve supportive people (e.g., family/friends) in their treatment as applicable. Mena will contact provider as needed for nonemergent MH concerns between appointments; responsible staff will return contact to in timely manner. Mena will use emergency MH options as agreed upon with provider (911, Emergency Department, [facility] Crisis Line). Different evidence-based treatment options were considered and discussed with Mena as part of current treatment planning. PROGRESS TOWARD GOALS WILL BE MEASURED BY: self-report, provider(s) observations in progress notes, medication refill history, regular attendance at MH appointments/groups, completion of [id number] assignments, and completion of measurement scale(s). DATE OF NEXT TREATMENT PLAN REVIEW: Mar /los/ JANINA BRAMBILA, PHD STAFF PSYCHOLOGIST Signed: 04/19/2025 20:03 JANINA BRAMBILA [facility]
--- OUTSIDE RECORDS SUMMARY | 2025-04-19 04:19 | XMS_ITS | Encounter Summary ---
Author Name [facility] [place] [place] Organization [facility] [place] Address [address] [place] [address] Care Team Providers Care Film Sound Engineer Name Role Phone CINDY ZAMORANO Primary Care Provider Unavail able Selected Encounter This section includes the information on record at [place] for the Encounter. Date/Time Encounter Type Encounter Description Reason Provider Source Apr 19, 2025 09:19 AM Outpatient Encounter OCCUPATIONAL THERAPY SOFIE HERNANDEZ [place] Encounter Template Text not used by [place] Plan of Treatment: Future Appointments (+ 6 [...] REHAB MEDICIN [facility] Apr 28, 2025 09:30 AM AMBULATORY - SURGERY [facility] May 03, 2025 02:00 PM AMBULATORY - REHAB MEDICIN [facility] May 05, 2025 08:00 AM AMBULATORY - REHAB MEDICIN [facility] May 15, 2025 10:00 AM AMBULATORY - REHAB MEDICIN E [facility] May 15, 2025 01:00 PM AMBULATORY - REHAB MEDICIN E [facility] May 29, 2025 11:00 AM AMBULATORY - REHAB MEDICIN E [facility] May 30, 2025 01:45 PM AMBULATORY - NONE [facility] Jul 14, 2025 10:30 AM [facility]UL[facility] [...] data comes from all [place] treatment facilities. Test Date/Time Test Type Test Details Facility Name Apr 28, 2025 10:15 AM Consult Order VISUAL IMPAIRMENT SERVICES OUTPT Cons Outbound [facility] Apr 28, 2025 10:40 AM Consult Order OT OCCUPATIONAL THERAPY OUTPT VISION THERAPY Cons Outbound Sales Specialist[facility] Choice [facility] May 30, 2025 01:45 PM Imaging - Magnetic Resonance Imaging (MRI) Order MRI-T-SPINE (P) [facility] Social History: Smoking Status (Most [...] Srini itsun Nov 27, 2023 03:30 PM VA-TOBACCO QUIT 5 TO < 15 YRS [facility] Tobacco Use History This [...] TO < 15 YRS [facility] Encounter Notes: All associated encounter notes This section contains the clinical notes associated to the Encounter. Date/Time Encounter Note(s) Provider Source Apr 19, 2025 09:19 AM PHYSICAL MEDICINE REHAB SECURE MESSAGING: LOCAL TITLE: PHYSICAL MEDICINE REHAB SECURE MESSAGING STANDARD TITLE: PHYSICAL MEDICINE REHAB SECURE MESSAGING DATE OF NOTE: APR 19, 2025@09:19 ENTRY DATE: APR 19, 2025@08:19:54 AUTHOR: SOFIE HERNANDEZ EXP COSIGNER: URGENCY: STATUS: COMPLETED ------Original Message - Sent: 04/18/2025 02:38 PM ET From: AWAIS PADILLA To: [facility] Occupational Therapy Questions Team ! Subject: General:Assessments Hey I got my medical id melva but Paulo's name and phone number are wrong. It says STACY instead of Paulo and it is missing a number in the phone number ------Original Message - Sent: 04/19/2025 09:19 AM ET From: SOFIE HERNANDEZ To: AWAIS PADILLA Subject: General:Assessments Cristian Calix, I'm sorry to hear that the bracelet arrived with incorrect information. I would recommend calling [facility], who can help you with this. The phone number is . For reference, this is the information I entered for the request Medical ID bracelet [id number] Awais Padilla Traumatic Brain Injury Contact: Paulo Padilla Sofie Orourke Occupational Therapist /los/ SOFIE HERNANDEZ OTR/L OCCUPATIONAL THERAPIST Signed: 04/19/2025 08:19 SOFIE HERNANDEZ [facility]
--- OUTSIDE RECORDS SUMMARY | 2025-04-24 04:00 | XMS_ITS | Encounter Summary ---
Author Name [facility] [place] [facility] [place] Organization [place] Address [address] [place] [address] Care Team Providers Care Personal Computer Specialist Name Role Phone CINDY ZAMORANO Primary Care Provider Unavail able Selected Encounter This section includes the information on record at [place] for the Encounter. Date/Time Encounter Type Encounter Description Reason Provider Source Apr 24, 2025 09:00 AM PSYTX W PT 45 MINUTES PAIN CLINIC ICD-10-CM F43.12 Post-traumatic stress disorder, chronic JANINA BRAMBILA [facility] Encounter Template Text not used by [place] Assessments - Encounter Diagnoses This section includes the primary and secondary diagnoses documented for the Encounter. Date/Time Primary/Secondary Diagnosis Diagnosis Name Provider Source Apr 24, 2025 12:48 PM PRIMARY Post-traumatic stress disorder, chronic JANINA BRAMBILA [facility] Apr 24, 2025 12:48 PM SECONDARY Major depressive disorder, recurrent, unspecified JANINA BRAMBILA [facility] Apr 24, 2025 12:48 PM SECONDARY Other chronic pain JANINA BRAMBILA [facility] Plan of Treatment: [...] 20 appointments. The data comes from all [facility] Appointment Date/Time Appointment Type Appointme nt Facility Name Apr 28, 2025 09:30 AM AMBULATORY - SURGERY [facility] May 03, 2025 02:00 PM AMBULATORY - REHAB MEDICIN E [facility] May 05, 2025 08:00 AM AMBULATORY - REHAB MEDICIN E [facility] May 15, 2025 10:00 AM AMBULATORY - REHAB MEDICIN E [facility] May 15, 2025 01:00 PM AMBULATORY - REHAB MEDICIN E [facility] May 29, 2025 11:00 AM AMBULATORY - REHAB MEDICIN E [facility] May 30, 2025 01:45 PM AMBULATORY - NONE [facility] Jul 14, 2025 10:30 AM AMBULATORY - REHAB MEDICIN [facility] Active, Pending, and Scheduled Orders This section includes a listing of several types of active, pending, and scheduled orders, including clinic medications orders, diagnostic test orders, procedure orders and consult orders; where the start date of the order is 45 days before the date of the Encounter or 45 days after the date of theEncounter. The data comes from all [facility]. Test Date/Time Test Type Test Details Facility Name Apr 28, 2025 10:15 AM Consult Order VISUAL IMPAIRMENT SERVICES OUTPT Cons Production [facility] Apr 28, 2025 10:40 AM Consult Order OT OCCUPATIONAL THERAPY OUTPT VISION THERAPY Cons [facility] May 30, 2025 01:45 PM Imaging - Magnetic Resonance Imaging (MRI) Order MRI-T-SPINE (P) [facility] Social History: Smoking Status (Most [...] 2023 09:03 AM VA-TOBACCO FORMER USER [facility] Jan 14, 2023 09:03 AM VA-TOBACCO QUIT 5 TO < [address] [facility] Encounter Notes: All associated encounter notes This section contains the clinical notes associated to the Encounter. Date/Time Encounter Note(s) Provider Source Apr 24, 2025 09:00 AM PHYSICAL MEDICINE REHAB NOTE: LOCAL TITLE: REHAB PSYCHOLOGY PROGRESS NOTE STANDARD TITLE: PHYSICAL MEDICINE REHAB NOTE DATE OF NOTE: APR 24, 2025@09:00 ENTRY DATE: APR 24, 2025@12:45:34 AUTHOR: JANINA BRAMBILA EXP COSIGNER: URGENCY: STATUS: COMPLETED REHAB PSYCHOLOGY PROGRESS NOTE [facility] - Individual pain psychology visit TIME: Psychotherapy x 50 minutes Informed Consent: Informed consent for treatment and confidentiality and limits and benefits of treatment were reviewed with patient and they indicated understanding and agreement in the first session. Visit conducted by synchronous telehealth. verbal consent obtained. Location/emergency number confirmed. Environment surveyed and all participants identified. [place]'s spouse was present with her consent. Virtual conference room locked. SESSION #5: Faviola has been successful with going attending aquatic aerobics and feels good with this. She attended 3x last week and plans to do so again this week. She also took her kids to the beach and very much enjoyed herself there. Civil Rights Attorney praised Faviola for these behaviors. We discussed her use of pacing. She noted she continues to want to overdo but has become more aware of how long she could be active when engaging in aquatic aerobics. We also discussed the difference between expected muscle pain from working out compared to her experience of chronic pain. noted she has not experienced pain flares from her increased activity. She is experiencing cognitions leading her to want to overdo given her success. We spent the rest of this appointment discussing automatic negative thoughts (ANTs) and their connection to behaviors, emotions, and chronic pain. identified with catastrophizing and helpless/hopeless. will review a handout of pain-related ANTs for homework and identify other types of ANTs she has a tendency to fall into. We discussed RTC plan. MENTAL STATUS: Participant [...] at this time. PATIENT EDUCATION AND UNDERSTANDING: [place] indicated readiness to learn for the education [...] -Continue with CBT for chronic pain and work on stated goals. -RTC 1 - 2 weeks /los/ JANINA BRAMBILA, PHD STAFF PSYCHOLOGIST Signed: 04/24/2025 12:54 04/24/2025 ADDENDUM STATUS: UNSIGNED You may not VIEW this UNSIGNED Addendum. JANINA BRAMBILA [facility]
--- OUTSIDE RECORDS SUMMARY | 2025-04-28 04:30 | XMS_ITS | Encounter Summary ---
Author Name [facility] ([place]) Organization [facility] ([place]) Address [address] [place] [address] Care Team Providers Care Supervisor Instrument Maintenance Name Role Phone CINDY ZAMORANO Primary Care Provider Unavail able Selected Encounter This section includes the information on record at [place] for the Encounter. Date/Time Encounter Type Encounter Description Reason Provider Source Apr 28, 2025 09:30 AM OFFICE O/P EST HI 40 MIN POLYTRAUMA/TBI IND ICD-10-CM H55.81 Deficient saccadic eye movements DAISY SCHWARTZ [place] Encounter Template Text not used by [place] Assessments - Encounter Diagnoses This section includes the primary and secondary diagnoses documented for the Encounter. Date/Time Primary/Secondary Diagnosis Diagnosis Name Provider Source Apr 28, 2025 10:39 AM PRIMARY Deficient saccadic eye movements DAISY SCHWARTZ SA [facility] Apr 28, 2025 10:39 AM SECONDARY Deficient smooth pursuit eye movements DAISY SCHWARTZ SA [facility] Apr 28, 2025 10:39 AM SECONDARY Dry eye syndrome of bilateral lacrimal glands DAISY SCHWARTZ SA [facility] Apr 28, 2025 10:39 AM SECONDARY Esophoria DAISY SCHWARTZ SA [facility] Apr 28, 2025 10:39 AM SECONDARY Myopia, bilateral DAISY SCHWARTZ SA [facility] Apr 28, 2025 10:39 AM SECONDARY Personal history of traumatic brain injury DAISY SCHWARTZ SA [facility] Apr 28, 2025 10:39 AM SECONDARY Regular astigmatism, bilateral DAISY SCHWARTZ SA [facility] Plan of Treatment: Future Appointments (+ 6 months) and Future Tests (+/- 45 days) The Plan of Treatment section includes future care activities for the patient from all [place] [facility]. This section includes future appointments and future orders which are active, pending or scheduled. Future Appointments This section includes appointments that were scheduled to occur 6 months from the date of the Encounter, up to a maximum of 20 appointments. The data comes from all [facility]. Appointment Date/Time Appointment Type Appointme nt Facility Name May 03, 2025 02:00 PM AMBULATORY - REHAB MEDICIN E [facility] May 05, 2025 08:00 AM AMBULATORY - REHAB MEDICIN [facility] May 15, 2025 10:00 AM AMBULATORY - REHAB MEDICIN [facility] May 15, 2025 01:00 PM AMBULATORY - REHAB MEDICIN [facility] May 29, 2025 11:00 AM AMBULATORY - REHAB MEDICIN [facility] May 30, 2025 01:45 PM AMBULATORY - NONE [facility] Jul 14, 2025 10:30 [facility] Active, Pending, and Scheduled Orders This section includes a listing of several types of active, pending, and scheduled orders, including clinic medications orders, diagnostic test orders, procedure orders and consult orders; where the start date of the order is 45 days before the date of the Encounter or 45 days after the date of theEncounter. The data comes from all [facility]. Test Date/Time Test Type Test Details Facility Name Apr 28, 2025 10:15 AM Consult Order VISUAL IMPAIRMENT SERVICES OUTPT [facility] Apr 28, 2025 10:40 AM Consult Order OT OCCUPATIONAL THERAPY OUTPT VISION THERAPY [facility] May 30, 2025 01:45 PM Imaging - Magnetic Resonance Imaging (MRI) Order MRI-T-SPINE (P) [facility] Encounter Notes: All associated encounter notes This section contains the clinical notes associated to the Encounter. Date/Time Encounter Note(s) Provider Source Apr 28, 2025 08:44 AM CUSTOMER CONTACT REPRESENTATIVE NOTE: LOCAL TITLE: CUSTOMER CONTACT REPRESENTATIVE NOTE STANDARD TITLE: CUSTOMER CONTACT REPRESENTATIVE NOTE DATE OF NOTE: APR 28, 2025@08:44 ENTRY DATE: APR 28, 2025@08:44:11 AUTHOR: RUDOLPH ESTRADA COSIGNER: URGENCY: STATUS: COMPLETED Eye Start Exam Patient: AWAIS PADILLA Sex: FEMALE SSN: [id number] Birthdate: [birth year] Chief complaint: She feels like she needs to have her glare wear glasses darker. She is getting an increase headaches when in the sun. She also has a crack in the lenses of her other pair. History of Present Illness: Location: Intensity: Duration: [...] less than 60 - Maternal grandfather of MS at 50 8. History of cerebrospinal fluid leak - History of CSF leak after epidural during labor; improved without intervention 9. History of gestational diabetes mellitus - First - Diagnostic CGM March 2024 (concern for symptomatic hypoglycemia): Normal. no hypo or hyperglycemia 10. Generalized enlarged lymph nodes 11. Splenomegaly 12. Myelopathy 13. Pain in thoracic spine Surgeries: SURGERIES - NONE FOUND Follow Up Exam Eye Medications ATS-not using Allergies: METOPROLOL (Jan 14, 2023) REGLAN (Jan 14, 2023) No new Allergies. Last refraction: Vision: OD:CC OD: 20/25 Pinhole: 20/ Near: 20/ Vision: OS:CC 0S: 20/20 Pinhole: 20/ Near: 20/ Current glasses: OD: -3.50 -0.75 X175 Prism: 1^OJ OS: -3.75 -0.25 X007 Prism: 1^OJ Add: N/A Confrontational Avalos: Full to finger counting: Right: Yes Left: Yes Extra Ocular Movement: Normal Pupils: Right: Round Left: Round Size: Right: 5 Left: 5 React to light: Right: Yes Left: Yes Afferent pupil defect: Right:No Grade: Left: No Grade: Stereo Circles: 40 seconds Intra-ocular pressure (IOP): OD: 16 OS: 16 Elbert /los/ RUDOLPH ESTRADA TRAVEL REGISTERED NURSE PACU Signed: 04/28/2025 09:48 HILARIO ESTRADA [facility] Apr 28, 2025 06:45 AM OPTOMETRY NOTE: LOCAL TITLE: OPTOMETRY CLINIC NOTE STANDARD TITLE: OPTOMETRY NOTE DATE OF NOTE: APR 28, 2025@06:45 ENTRY DATE: APR 28, 2025@06:46:02 AUTHOR: EUGENIA SCHWARTZ COSIGNER: URGENCY: STATUS: COMPLETED Alert & oriented X 3 Appropriate PPE was worn by the patient and provider for the duration of the encounter. CC: Here for binocular vision f/u. FMSE for vision therapy. She feels like she needs to have her glare wear glasses darker. She is getting an increase headaches when in the sun. She also has a crack in the lenses of her other pair. 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 She reports this has not occurred. Last OT: 01/29/2024 (session #2) Nature of head injury: mTBI Area of cerebral cortex effected, if specified: not specified Loss of conciousness? yes Duration? few seconds Neuroimaging date/Results: CT SCAN BRAIN 08/09/2011 [facility] [...] chair, no postural shift Entering VAcc OD: 2025 OS: 20/20 External Exam: Within Normal Limits PERRL (-)APD EOM: SFROM OU CVF: FTFC OD, OS OCULAR ALIGNMENT (cover test): Primary Gaze: Distance: ortho Near: 4 EP' Willis José Miguel: Horizontal: eso Vertical: fluctuating trace right and left hyper Pursuits (graded according to NSUCO standards): Ability: 5 Accuracy: 3 (OS slower than left, brought on diplopia) Head/Body Mvmt: 5 Saccades (graded according to NSUCO standards): Ability: 5 Accuracy: 4 (undershoots, slow) Head/Body Mvmt: 5 Near point of convergence x 3 #1: UTT (blurry/doubled) #2: UTT (blurry/doubled) #3: UTT (blurry/doubled) Near Vergences (Prism Bar) BI: UTT (blurry/doubled) OJ: UTT (blurry/doubled) Lensometry OD:-3.50-0.03b165 1BO OS:-3.75-0.58c586 1BO Subjective/Final Rx (R/G balance): OD:-3.50-1.34z771 1BO 20/20 OS:-3.50-0.76i235 1BO 20/20 20/20 OU ADD:none 20/20 OU SLEx (OU unless otherwise noted): Lids/Lashes: Clear Conj: White and quiet Cornea: oily TF A/C: Deep and quiet Iris: No tears Anterior Vitreous: Syneresis Lens: clear IOP (iCare per tech): 16/16 Dilated 1% Tropicamide OU @ 10:06am Fundus Exam (OU unless otherwise noted): ONH: 0.25 OD; 0.25 OS; Rim tissue well perfused OU Macula: flat/dry Vessels: Normal caliber Vitreous: clear Periphery: Flat and intact with no holes or tears 360'; OS superior pigmented VRT A/P 1. Traumatic brain injury -Binocular vision: small esophoria at near, likely decompensates when fatigued causing symptoms. significant improvement in binocular vision skills with OJ prism, will continue -Oculomotor: deficient pursuits>saccades -recommend re-starting vision therapy for oculomotor dysfunction, in agreement, consult placed -(+)Photophobia: interested in darker glareware, will place new consult -Visual field results: FTFC via CVF -RTC polytrauma 6 months VT + BV check 2. Myopia/Astigmatism OU -released final copy of SRx, tint okay due to #1 3. Esophoria -see #1 4. Oculomotor dysfunction -see #1 5. JOHN PAUL OU -continue ATs prn OU. monitor 6. Flat pigmented VR tuft OS -No Retinal break, no RD, no RT -pt educated on s/s of RD and to call triage line KIKO if noting symptoms Total encounter time (chart review, examination and documentation): 40 minutes VT Plan: start monocular and progress to binocular when appropriate 1. Oculomotor -[place] Chart Saccades -[place] Tracking -Word Searches -Ashly Ball -Rotating Peg Board -BITS training /es/ EUGENIA SCHWARTZ, EM[employer] STAFF TACK CLEANER Signed: 04/28/2025 10:41 EUGENIA SCHWARTZ [facility]
--- OUTSIDE RECORDS SUMMARY | 2025-05-02 09:36 | XMS_ITS | Continuity of Care Document ---
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 PLASMA No comment entered. Ordering Provider: SHANON NEWELL Report Released Date/Time: Nov 22, 2024 10:51 AM Reporting Lab: [facility] [address] Performing Lab: [place] [address] [place] [facility] COMPREHEN SIVE METABOLIC PANEL+MG ALKALINE PHOSPHATASE [ENZYMATIC ACTIVITY/VO LUME] IN SERUM OR PLASMA 87 U/L 40 - 150 02/21 Specimen Type: PLASMA No comment entered. Ordering Provider: SHANON NEWELL Report Released Date/Time: Nov 22, 2024 10:51 AM Reporting Lab: [facility] [address] Performing Lab: [facility] [address] [place] [facility] COMPREHEN SIVE METABOLIC PANEL+MG ALANINE AMINOTRANSF ERASE [ENZYMATIC ACTIVITY/VO LUME] IN SERUM OR PLASMA 14 U/L <33 - 33 02/21 Specimen Type: PLASMA No comment entered. Ordering Provider: SHANON NEWELL Report Released Date/Time: Nov 22, 2024 10:51 AM Reporting Lab: [facility] [address] Performing Lab: [facility] [address] [place] [facility] COMPREHEN SIVE METABOLIC PANEL+MG ASPARTATE AMINOTRANSF ERASE [ENZYMATIC ACTIVITY/VO LUME] IN SERUM OR PLASMA 18 U/L 11 - 34 02/21 Specimen Type: PLASMA No comment entered. Ordering Provider: SHANON NEWELL Report Released Date/Time: Nov 22, 2024 10:51 AM Reporting Lab: [facility] [address] Performing Lab: [facility] [address] [place] [facility] COMPREHEN SIVE METABOLIC PANEL+MG GLOMERULAR FILTRATION RATE/1.73 SQ M.PREDICTED [VOLUME RATE/AREA] IN SERUM, PLASMA OR BLOOD BY CREATININE- BASED FORMULA (CKD-EPI 2020) >90 60 02/21 Specimen Type: PLASMA No comment entered. Ordering Provider: SHANON NEWELL Report Released Date/Time: Nov 22, 2024 10:51 AM Reporting Lab: [facility] [address] Performing Lab: [facility] [address] [place] [facility] CBC & DIFF LEUKOCYTES [#/VOLUME] IN BLOOD BY AUTOMATED COUNT 4.4 4.0 - 11.0 12/09 Specimen Type: BLOOD Comment: Automated Differentia l Performed Ordering Provider: LUISITO FRANCOIS Report Released Date/Time: Dec 06, 2024 09:29 AM Reporting Lab: [facility] [address] Performing Lab: [facility] [address] [place] [facility] CBC & DIFF ERYTHROCYTE S [#/VOLUME] IN BLOOD BY AUTOMATED COUNT 4.42 4.00 - 5.40 12/09 Specimen Type: BLOOD Comment: Automated Differentia l Performed Ordering Provider: LUISITO FRANCOIS Report Released Date/Time: Dec 06, 2024 09:29 AM Reporting Lab: [facility] [address] Performing Lab: [facility] [address] [place] [facility] CBC & DIFF HEMOGLOBIN [MASS/VOLUM E] IN BLOOD 13.5 g/dL 11.5 - 16.0 12/09 Specimen Type: BLOOD Comment: Automated Differentia l Performed Ordering Provider: LUISITO FRANCOIS Report Released Date/Time: Dec 06, 2024 09:29 AM Reporting Lab: [facility] [address] Performing Lab: [facility] [address] [place] [facility] CBC & DIFF HEMATOCRIT [VOLUME FRACTION] OF BLOOD BY AUTOMATED COUNT 39.1 34.5 - 48.0 12/09 Specimen Type: BLOOD Comment: Automated Differentia l Performed Ordering Provider: LUISITO FRANCOIS Report Released Date/Time: Dec 06, 2024 09:29 AM Reporting Lab: [facility] [address] Performing Lab: [facility] [address] [place] [facility] CBC & DIFF MCV [ENTITIC VOLUME] BY AUTOMATED COUNT 88.5 fL 80.0 - 100.0 12/09 Specimen Type: BLOOD Comment: Automated Differentia l Performed Ordering Provider: LUISITO FRANCOIS Report Released Date/Time: Dec 06, 2024 09:29 AM Reporting Lab: [facility] [address] Performing Lab: [facility] [address] [place] [facility] CBC & DIFF MCH [ENTITIC MASS] BY AUTOMATED COUNT 30.5 pg 27.0 - 33.0 12/09 Specimen Type: BLOOD Comment: Automated Differentia l Performed Ordering Provider: LUISITO FRANCOIS Report Released Date/Time: Dec 06, 2024 09:29 AM Reporting Lab: [facility] [address] Performing Lab: [facility] [address] [place] [facility] CBC & DIFF MCHC [MASS/VOLUM E] BY AUTOMATED COUNT 34.5 g/dL 32.0 - 37.5 12/09 Specimen Type: BLOOD Comment: Automated Differentia l Performed Ordering Provider: LUISITO FRANCOIS Report Released Date/Time: Dec 06, 2024 09:29 AM Reporting Lab: [facility] [address] Performing Lab: [facility] [address] [place] [facility] CBC & DIFF PLATELETS [#/VOLUME] IN BLOOD BY AUTOMATED COUNT 176 150 - 400 12/09 Specimen Type: BLOOD Comment: Automated Differentia l Performed Ordering Provider: LUISITO FRANCOIS Report Released Date/Time: Dec 06, 2024 09:29 AM Reporting Lab: [facility] [address] Performing Lab: [facility] [address] [place] [facility] CBC & DIFF PLATELET MEAN VOLUME [ENTITIC VOLUME] IN BLOOD BY AUTOMATED COUNT 11.4 fL 9.1 - 13.0 12/09 Specimen Type: BLOOD Comment: Automated Differentia l Performed Ordering Provider: LUISITO FRANCOIS Report Released Date/Time: Dec 06, 2024 09:29 AM Reporting Lab: [facility] [address] Performing Lab: [facility] [address] [place] [facility] CBC & DIFF NEUTROPHILS /100 LEUKOCYTES IN BLOOD BY MANUAL COUNT 60.0 40.0 - 80.0 12/09 Specimen Type: BLOOD Comment: Automated Differentia l Performed Ordering Provider: LUISITO FRANCOIS Report Released Date/Time: Dec 06, 2024 09:29 AM Reporting Lab: [facility] [address] Performing Lab: [facility] [address] [place] [facility] CBC & DIFF LYMPHOCYTES /100 LEUKOCYTES IN BLOOD BY MANUAL COUNT 31.6 15.0 - 45.0 12/09 Specimen Type: BLOOD Comment: Automated Differentia l Performed Ordering Provider: LUISITO FRANCOIS Report Released Date/Time: Dec 06, 2024 09:29 AM Reporting Lab: [facility] [address] Performing Lab: [facility] [address] [place] [facility] CBC & DIFF MONOCYTES/1 00 LEUKOCYTES IN BLOOD BY AUTOMATED COUNT 6.6 2.0 - 12.0 12/09 Specimen Type: BLOOD Comment: Automated Differentia l Performed Ordering Provider: LUISITO FRANCOIS Report Released Date/Time: Dec 06, 2024 09:29 AM Reporting Lab: [facility] [address] Performing Lab: [facility] [address] [place] [facility] CBC & DIFF EOSINOPHILS /100 LEUKOCYTES IN BLOOD BY AUTOMATED COUNT 1.1 0.0 - 6.0 12/09 Specimen Type: BLOOD Comment: Automated Differentia l Performed Ordering Provider: LUISITO FRANCOIS Report Released Date/Time: Dec 06, 2024 09:29 AM Reporting Lab: [facility] [address] Performing Lab: [facility] [address] [place] [facility] CBC & DIFF BASOPHILS/1 00 LEUKOCYTES IN BLOOD BY MANUAL COUNT 0.5 0.0 - 2.0 12/09 Specimen Type: BLOOD Comment: Automated Differentia l Performed Ordering Provider: LUISITO FRANCOIS Report Released Date/Time: Dec 06, 2024 09:29 AM Reporting Lab: [facility] [address] Performing Lab: [facility] [address] [place] [facility] CBC & DIFF ERYTHROCYTE DISTRIBUTIO N WIDTH [RATIO] BY AUTOMATED COUNT 11.9 11.5 - 14.5 12/09 Specimen Type: BLOOD Comment: Automated Differentia l Performed Ordering Provider: LUISITO FRANCOIS Report Released Date/Time: Dec 06, 2024 09:29 AM Reporting Lab: [facility] [address] Performing Lab: [facility] [address] [place] [facility] CBC & DIFF LYMPHOCYTES [#/VOLUME] IN BLOOD BY AUTOMATED COUNT 1.4 1.0 - 4.0 12/09 Specimen Type: BLOOD Comment: Automated Differentia l Performed Ordering Provider: LUISITO FRANCOIS Report Released Date/Time: Dec 06, 2024 09:29 AM Reporting Lab: [facility] [address] Performing Lab: [facility] [address] [place] [facility] CBC & DIFF MONOCYTES [#/VOLUME] IN BLOOD BY AUTOMATED COUNT 0.3 0.1 - 1.0 12/09 Specimen Type: BLOOD Comment: Automated Differentia l Performed Ordering Provider: LUISITO FRANCOIS Report Released Date/Time: Dec 06, 2024 09:29 AM Reporting Lab: [facility] [address] Performing Lab: [facility] [address] [place] [facility] CBC & DIFF NEUTROPHILS [#/VOLUME] IN BLOOD BY AUTOMATED COUNT 2.6 2.0 - 7.7 12/09 Specimen Type: BLOOD Comment: Automated Differentia l Performed Ordering Provider: LUISITO FRANCOIS Report Released Date/Time: Dec 06, 2024 09:29 AM Reporting Lab: [facility] [address] Performing Lab: [facility] [address] [place] [facility] CBC & DIFF EOSINOPHILS [#/VOLUME] IN BLOOD BY AUTOMATED COUNT 0.1 0.0 - 0.5 12/09 Specimen Type: BLOOD Comment: Automated Differentia l Performed Ordering Provider: LUISITO FRANCOIS Report Released Date/Time: Dec 06, 2024 09:29 AM Reporting Lab: [facility] [address] Performing Lab: [facility] [address] [place] [facility] CBC & DIFF BASOPHILS [#/VOLUME] IN BLOOD BY AUTOMATED COUNT 0.0 0.0 - 0.2 12/09 Specimen Type: BLOOD Comment: Automated Differentia l Performed Ordering Provider: LUISITO FRANCOIS Report Released Date/Time: Dec 06, 2024 09:29 AM Reporting Lab: [facility] [address] Performing Lab: [facility] [address] [place] [facility] CBC & DIFF IG(META,MYE LO,PRO) 0.2 12/09 Specimen Type: BLOOD Comment: Automated Differentia l Performed Ordering Provider: LUISITO FRANCOIS Report Released Date/Time: Dec 06, 2024 09:29 AM Reporting Lab: [facility] [address] Performing Lab: [facility] [address] [place] [facility] CBC & DIFF IMMATURE GRANULOCYTE S [PRESENCE] IN BLOOD BY AUTOMATED COUNT 0.0 0.0 - 0.1 12/09 Specimen Type: BLOOD Comment: Automated Differentia l Performed Ordering Provider: LUISITO FRANCOIS Report Released Date/Time: Dec 06, 2024 09:29 AM Reporting Lab: [facility] [address] Performing Lab: [facility] [address] [place] [facility] CREATININ E(INCLUDE S EGFR) CREATININE [MASS/VOLUM E] IN SERUM OR PLASMA 0.6 mg/dL 0.5 - 1.0 12/09 Specimen Type: PLASMA No comment entered. Ordering Provider: LUISITO FRANCOIS Report Released Date/Time: Dec 06, 2024 09:29 AM Reporting Lab: [facility] [address] Performing Lab: [facility] [address] [place] [facility] CREATININ E(INCLUDE S EGFR) GLOMERULAR FILTRATION RATE/1.73 SQ M.PREDICTED [VOLUME RATE/AREA] IN SERUM, PLASMA OR BLOOD BY CREATININE- BASED FORMULA (CKD-EPI 2020) >90 60 12/09 Specimen Type: PLASMA No comment entered. Ordering Provider: LUISITO FRANCOIS Report Released Date/Time: Dec 06, 2024 09:29 AM Reporting Lab: [facility] [address] Performing Lab: [facility] [address] [place] [facility] PROTHROMB IN TIME/INR INR IN PLATELET POOR PLASMA BY COAGULATION ASSAY 1.1 0.8 - 1.1 12/09 Specimen Type: PLASMA No comment entered. Ordering Provider: LUISITO FRANCOIS Report Released Date/Time: Dec 06, 2024 09:29 AM Reporting Lab: [facility] [address] Performing Lab: [facility] [address] [place] [facility] PROTHROMB IN TIME/INR PROTHROMBIN TIME (PT) 12.9 s 9.4 - 12.5 12/09 H Specimen Type: PLASMA No comment entered. Ordering Provider: LUISITO FRANCOIS Report Released Date/Time: Dec 06, 2024 09:29 AM Reporting Lab: [facility] [address] Performing Lab: [facility] [address] [place] [facility] COMPREHEN SIVE METABOLIC PANEL+MG CREATININE [MASS/VOLUM E] IN SERUM OR PLASMA 0.6 mg/dL 0.5 - 1.0 11/22 Specimen Type: PLASMA No comment entered. Ordering Provider: SHANON NEWELL Report Released Date/Time: Apr 26, 2024 10:33 AM Reporting Lab: [facility] [address] Performing Lab: [facility] [address] [place] [facility] COMPREHEN SIVE METABOLIC PANEL+MG UREA NITROGEN [MASS/VOLUM E] IN SERUM OR PLASMA 12 mg/dL 7 - 20 11/22 Specimen Type: PLASMA No comment entered. Ordering Provider: SHANON NEWELL Report Released Date/Time: Apr 26, 2024 10:33 AM Reporting Lab: [facility] [address] Performing Lab: [facility] [address] [place] [facility] COMPREHEN SIVE METABOLIC PANEL+MG GLUCOSE [MASS/VOLUM E] IN SERUM OR PLASMA 118 mg/dL 70 - 100 11/22 H Specimen Type: PLASMA No comment entered. Ordering Provider: SHANON NEWELL Report Released Date/Time: Apr 26, 2024 10:33 AM Reporting Lab: [facility] [address] Performing Lab: [facility] [address] [place] [facility] COMPREHEN SIVE METABOLIC PANEL+MG SODIUM [MOLES/VOLU ME] IN SERUM OR PLASMA 138 mmol/L 136 - 145 11/22 Specimen Type: PLASMA No comment entered. Ordering Provider: SHANON NEWELL Report Released Date/Time: Apr 26, 2024 10:33 AM Reporting Lab: [facility] [address] Performing Lab: [facility] [address] [place] [facility] COMPREHEN SIVE METABOLIC PANEL+MG POTASSIUM [MOLES/VOLU ME] IN SERUM OR PLASMA 3.8 mmol/L 3.5 - 5.1 11/22 Specimen Type: PLASMA No comment entered. Ordering Provider: SHANON NEWELL Report Released Date/Time: Apr 26, 2024 10:33 AM Reporting Lab: [facility] [address] Performing Lab: [facility] [address] [place] [facility] COMPREHEN SIVE METABOLIC PANEL+MG CHLORIDE [MOLES/VOLU ME] IN SERUM OR PLASMA 105 mmol/L 98 - 107 11/22 Specimen Type: PLASMA No comment entered. Ordering Provider: SHANON NEWELL Report Released Date/Time: Apr 26, 2024 10:33 AM Reporting Lab: [facility] [address] Performing Lab: [facility] [address] [place] [facility] COMPREHEN SIVE METABOLIC PANEL+MG CARBON DIOXIDE, TOTAL [MOLES/VOLU ME] IN SERUM OR PLASMA 27 mmol/L 22 - 29 11/22 Specimen Type: PLASMA No comment entered. Ordering Provider: SHANON NEWELL Report Released Date/Time: Apr 26, 2024 10:33 AM Reporting Lab: [facility] [address] Performing Lab: [facility] [address] [place] [facility] COMPREHEN SIVE METABOLIC PANEL+MG CALCIUM [MASS/VOLUM E] IN SERUM OR PLASMA 8.7 mg/dL 8.4 - 10.2 11/22 Specimen Type: PLASMA No comment entered. Ordering Provider: SHANON NEWELL Report Released Date/Time: Apr 26, 2024 10:33 AM Reporting Lab: [facility] [address] Performing Lab: [facility] [address] [place] [facility] COMPREHEN SIVE METABOLIC PANEL+MG PROTEIN [MASS/VOLUM E] IN SERUM OR PLASMA 7.4 g/dL 6.4 - 8.3 11/22 Specimen Type: PLASMA No comment entered. Ordering Provider: SHANON NEWELL Report Released Date/Time: Apr 26, 2024 10:33 AM Reporting Lab: [facility] [address] Performing Lab: [facility] [address] [place] [facility] COMPREHEN SIVE METABOLIC PANEL+MG ALBUMIN [MASS/VOLUM E] IN SERUM OR PLASMA 4.3 g/dL 3.5 - 5.0 11/22 Specimen Type: PLASMA No comment entered. Ordering Provider: SHANON NEWELL Report Released Date/Time: Apr 26, 2024 10:33 AM Reporting Lab: [facility] [address] Performing Lab: [facility] [address] [place] [facility] COMPREHEN SIVE METABOLIC PANEL+MG BILIRUBIN.T OTAL [MASS/VOLUM E] IN SERUM OR PLASMA 0.4 mg/dL 0.2 - 1.2 11/22 Specimen Type: PLASMA No comment entered. Ordering Provider: SHANON NEWELL Report Released Date/Time: Apr 26, 2024 10:33 AM Reporting Lab: [facility] [address] Performing Lab: [facility] [address] [place] [facility] COMPREHEN SIVE METABOLIC PANEL+MG MAGNESIUM [MASS/VOLUM E] IN SERUM OR PLASMA 1.9 mg/dL 1.6 - 2.6 11/22 Specimen Type: PLASMA No comment entered. Ordering Provider: SHANON NEWELL Report Released Date/Time: Apr 26, 2024 10:33 AM Reporting Lab: [facility] [address] Performing Lab: [place] [address] [place] [facility] COMPREHEN SIVE METABOLIC PANEL+MG ANION GAP IN SERUM OR PLASMA 6 mmol/L 5 - 15 11/22 Specimen Type: PLASMA No comment entered. Ordering Provider: SHANON NEWELL Report Released Date/Time: Apr 26, 2024 10:33 AM Reporting Lab: [facility] [address] Performing Lab: [facility] [address] [place] [facility] COMPREHEN SIVE METABOLIC PANEL+MG ALKALINE PHOSPHATASE [ENZYMATIC ACTIVITY/VO LUME] IN SERUM OR PLASMA 77 U/L 40 - 150 11/22 Specimen Type: PLASMA No comment entered. Ordering Provider: SHANON NEWELL Report Released Date/Time: Apr 26, 2024 10:33 AM Reporting Lab: [facility] [address] Performing Lab: [facility] [address] [place] [facility] COMPREHEN SIVE METABOLIC PANEL+MG ALANINE AMINOTRANSF ERASE [ENZYMATIC ACTIVITY/VO LUME] IN SERUM OR PLASMA 15 U/L <33 - 33 11/22 Specimen Type: PLASMA No comment entered. Ordering Provider: SHANON NEWELL Report Released Date/Time: Apr 26, 2024 10:33 AM Reporting Lab: [facility] [address] Performing Lab: [facility] [address] [place] [facility] COMPREHEN SIVE METABOLIC PANEL+MG ASPARTATE AMINOTRANSF ERASE [ENZYMATIC ACTIVITY/VO LUME] IN SERUM OR PLASMA 25 U/L 11 - 34 11/22 Specimen Type: PLASMA No comment entered. Ordering Provider: SHANON NEWELL Report Released Date/Time: Apr 26, 2024 10:33 AM Reporting Lab: [facility] [address] Performing Lab: [facility] [address] [place] [facility] COMPREHEN SIVE METABOLIC PANEL+MG GLOMERULAR FILTRATION RATE/1.73 SQ M.PREDICTED [VOLUME RATE/AREA] IN SERUM, PLASMA OR BLOOD BY CREATININE- BASED FORMULA (CKD-EPI 2020) >90 60 11/22 Specimen Type: PLASMA No comment entered. Ordering Provider: SHANON NEWELL Report Released Date/Time: Apr 26, 2024 10:33 AM Reporting Lab: [facility] [address] Performing Lab: [facility] [address] [facility] LD,TOTAL LACTATE DEHYDROGENA SE [ENZYMATIC ACTIVITY/VO LUME] IN SERUM OR PLASMA BY LACTATE TO PYRUVATE REACTION 194 U/L 125 - 220 11/22 Specimen Type: PLASMA No comment entered. Ordering Provider: SHANON NEWELL Report Released Date/Time: Apr 26, 2024 10:33 AM Reporting Lab: [facility] [address] Performing Lab: [facility] [address] [place] [facility] URIC ACID URATE [MASS/VOLUM E] IN SERUM OR PLASMA 5.4 mg/dL 2.5 - 6.2 11/22 Specimen Type: PLASMA No comment entered. Ordering Provider: SHANON NEWELL Report Released Date/Time: Apr 26, 2024 10:33 AM Reporting Lab: [facility] [address] Performing Lab: [facility] [address] [place] [facility] CBC & DIFF LEUKOCYTES [#/VOLUME] IN BLOOD BY AUTOMATED COUNT 5.4 4.0 - 11.0 11/22 Specimen Type: BLOOD Comment: Automated Differentia l Performed Ordering Provider: SHANON NEWELL Report Released Date/Time: Oct 25, 2024 10:32 AM Reporting Lab: [facility] [address] Performing Lab: [facility] [address] [place] [facility] CBC & DIFF ERYTHROCYTE S [#/VOLUME] IN BLOOD BY AUTOMATED COUNT 4.58 4.00 - 5.40 11/22 Specimen Type: BLOOD Comment: Automated Differentia l Performed Ordering Provider: SHANON NEWELL Report Released Date/Time: Oct 25, 2024 10:32 AM Reporting Lab: [facility] [address] Performing Lab: [facility] [address] [place] [facility] CBC & DIFF HEMOGLOBIN [MASS/VOLUM E] IN BLOOD 13.6 g/dL 11.5 - 16.0 11/22 Specimen Type: BLOOD Comment: Automated Differentia l Performed Ordering Provider: SHANON NEWELL Report Released Date/Time: Oct 25, 2024 10:32 AM Reporting Lab: [facility] [address] Performing Lab: [facility] [id number] [place] [facility] CBC & DIFF HEMATOCRIT [VOLUME FRACTION] OF BLOOD BY AUTOMATED COUNT 39.9 34.5 - 48.0 11/22 Specimen Type: BLOOD Comment: Automated Differentia l Performed Ordering Provider: SHANON NEWELL Report Released Date/Time: Oct 25, 2024 10:32 AM Reporting Lab: [facility] [id number] Performing Lab: [facility] [phone] [place] [facility] CBC & DIFF MCV [ENTITIC VOLUME] BY AUTOMATED COUNT 87.1 fL 80.0 - 100.0 11/22 Specimen Type: BLOOD Comment: Automated Differentia l Performed Ordering Provider: SHANON NEWELL Report Released Date/Time: Oct 25, 2024 10:32 AM Reporting Lab: [facility] [id number] Performing Lab: [facility] [phone] [place] [facility] CBC & DIFF MCH [ENTITIC MASS] BY AUTOMATED COUNT 29.7 pg 27.0 - 33.0 11/22 Specimen Type: BLOOD Comment: Automated Differentia l Performed Ordering Provider: SHANON NEWELL Report Released Date/Time: Oct 25, 2024 10:32 AM Reporting Lab: [facility] [phone] Performing Lab: [facility] [address] [place] [facility] CBC & DIFF MCHC [MASS/VOLUM E] BY AUTOMATED COUNT 34.1 g/dL 32.0 - 37.5 11/22 Specimen Type: BLOOD Comment: Automated Differentia l Performed Ordering Provider: SHANON NEWELL Report Released Date/Time: Oct 25, 2024 10:32 AM Reporting Lab: [facility] [id number] Performing Lab: [facility] [phone] [place] [facility] CBC & DIFF PLATELETS [#/VOLUME] IN BLOOD BY AUTOMATED COUNT 190 150 - 400 11/22 Specimen Type: BLOOD Comment: Automated Differentia l Performed Ordering Provider: SHANON NEWELL Report Released Date/Time: Oct 25, 2024 10:32 AM Reporting Lab: [facility] [address] Performing Lab: [facility] [address] [place] [facility] CBC & DIFF PLATELET MEAN VOLUME [ENTITIC VOLUME] IN BLOOD BY AUTOMATED COUNT 11.7 fL 9.1 - 13.0 11/22 Specimen Type: BLOOD Comment: Automated Differentia l Performed Ordering Provider: SHANON NEWELL Report Released Date/Time: Oct 25, 2024 10:32 AM Reporting Lab: [facility] [address] Performing Lab: [facility] [address] [place] [facility] CBC & DIFF NEUTROPHILS /100 LEUKOCYTES IN BLOOD BY MANUAL COUNT 61.8 40.0 - 80.0 11/22 Specimen Type: BLOOD Comment: Automated Differentia l Performed Ordering Provider: SHANON NEWELL Report Released Date/Time: Oct 25, 2024 10:32 AM Reporting Lab: [facility] [address] Performing Lab: [facility] [address] [place] [facility] CBC & DIFF LYMPHOCYTES /100 LEUKOCYTES IN BLOOD BY MANUAL COUNT 31.0 15.0 - 45.0 11/22 Specimen Type: BLOOD Comment: Automated Differentia l Performed Ordering Provider: SHANON NEWELL Report Released Date/Time: Oct 25, 2024 10:32 AM Reporting Lab: [facility] [address] Performing Lab: [facility] [address] [place] [facility] CBC & DIFF MONOCYTES/1 00 LEUKOCYTES IN BLOOD BY AUTOMATED COUNT 4.5 2.0 - 12.0 11/22 Specimen Type: BLOOD Comment: Automated Differentia l Performed Ordering Provider: SHANON NEWELL Report Released Date/Time: Oct 25, 2024 10:32 AM Reporting Lab: [facility] [address] Performing Lab: [facility] [address] [place] [facility] CBC & DIFF EOSINOPHILS /100 LEUKOCYTES IN BLOOD BY AUTOMATED COUNT 2.1 0.0 - 6.0 11/22 Specimen Type: BLOOD Comment: Automated Differentia l Performed Ordering Provider: SHANON NEWELL Report Released Date/Time: Oct 25, 2024 10:32 AM Reporting Lab: [facility] [address] Performing Lab: [facility] [address] [place] [facility] CBC & DIFF BASOPHILS/1 00 LEUKOCYTES IN BLOOD BY MANUAL COUNT 0.4 0.0 - 2.0 11/22 Specimen Type: BLOOD Comment: Automated Differentia l Performed Ordering Provider: SHANON NEWELL Report Released Date/Time: Oct 25, 2024 10:32 AM Reporting Lab: [facility] [address] Performing Lab: [facility] [address] [place] [facility] CBC & DIFF ERYTHROCYTE DISTRIBUTIO N WIDTH [RATIO] BY AUTOMATED COUNT 11.6 11.5 - 14.5 11/22 Specimen Type: BLOOD Comment: Automated Differentia l Performed Ordering Provider: SHANON NEWELL Report Released Date/Time: Oct 25, 2024 10:32 AM Reporting Lab: [facility] [address] Performing Lab: [facility] [address] [place] [facility] CBC & DIFF LYMPHOCYTES [#/VOLUME] IN BLOOD BY AUTOMATED COUNT 1.7 1.0 - 4.0 11/22 Specimen Type: BLOOD Comment: Automated Differentia l Performed Ordering Provider: SHANON NEWELL Report Released Date/Time: Oct 25, 2024 10:32 AM Reporting Lab: [facility] [address] Performing Lab: [facility] [address] [place] [facility] CBC & DIFF MONOCYTES [#/VOLUME] IN BLOOD BY AUTOMATED COUNT 0.2 0.1 - 1.0 11/22 Specimen Type: BLOOD Comment: Automated Differentia l Performed Ordering Provider: SHANON NEWELL Report Released Date/Time: Oct 25, 2024 10:32 AM Reporting Lab: [facility] [address] Performing Lab: [facility] [address] [place] [facility] CBC & DIFF NEUTROPHILS [#/VOLUME] IN BLOOD BY AUTOMATED COUNT 3.3 2.0 - 7.7 11/22 Specimen Type: BLOOD Comment: Automated Differentia l Performed Ordering Provider: SHANON NEWELL Report Released Date/Time: Oct 25, 2024 10:32 AM Reporting Lab: [facility] [address] Performing Lab: [facility] [address] [place] [facility] CBC & DIFF EOSINOPHILS [#/VOLUME] IN BLOOD BY AUTOMATED COUNT 0.1 0.0 - 0.5 11/22 Specimen Type: BLOOD Comment: Automated Differentia l Performed Ordering Provider: SHANON NEWELL Report Released Date/Time: Oct 25, 2024 10:32 AM Reporting Lab: [facility] [address] Performing Lab: [facility] [address] [place] [facility] CBC & DIFF BASOPHILS [#/VOLUME] IN BLOOD BY AUTOMATED COUNT 0.0 0.0 - 0.2 11/22 Specimen Type: BLOOD Comment: Automated Differentia l Performed Ordering Provider: SHANON NEWELL Report Released Date/Time: Oct 25, 2024 10:32 AM Reporting Lab: [facility] [address] Performing Lab: [facility] [address] [place] [facility] CBC & DIFF IG(META,MYE LO,PRO) 0.2 11/22 Specimen Type: BLOOD Comment: Automated Differentia l Performed Ordering Provider: SHANON NEWELL Report Released Date/Time: Oct 25, 2024 10:32 AM Reporting Lab: [facility] [address] Performing Lab: [facility] [address] [place] [facility] CBC & DIFF IMMATURE GRANULOCYTE S [PRESENCE] IN BLOOD BY AUTOMATED COUNT 0.0 0.0 - 0.1 11/22 Specimen Type: BLOOD Comment: Automated Differentia l Performed Ordering Provider: SHANON NEWELL Report Released Date/Time: Oct 25, 2024 10:32 AM Reporting Lab: [facility] [address] Performing Lab: [facility] [address] [place] [facility] FINGERSTI CK GLUCOSE GLUCOSE [MASS/VOLUM E] IN CAPILLARY BLOOD 87 mg/dL 70 - 100 11/15 Specimen Type: BLOOD Comment: Save Result Ordering Provider: JACQUELINE ZAMORANO Report Released Date/Time: Nov 17, 2024 07:56 AM Reporting Lab: [facility] [address] Performing Lab: [facility] [address] [facility] Vital Signs Combined list of inpatient and outpatient Vital Signs from Department of Defense and Veterans Affairs, ranging from 12 months to all on record, depending upon the facility. Vital Sign Value Date Comments Source SYSTOLIC BLOOD PRESSURE 120 04/11/2025 12:58:49 [facility] DIASTOLIC BLOOD PRESSURE 87 04/11/2025 12:58:49 [facility] PULSE OXIMETRY 97 % 04/11/2025 12:58:49 [place] [facility] PAIN 7 04/11/2025 12:58:49 [place] [facility] TEMPERATURE 99 04/11/2025 12:58:49 [place] [facility] PULSE 72 04/11/2025 12:58:49 [facility] [facility] RESPIRATION 16 04/11/2025 12:58:49 [facility] SYSTOLIC BLOOD PRESSURE 138 02/21/2025 09:26:02 [facility] DIASTOLIC BLOOD PRESSURE 98 02/21/2025 09:26:02 [facility] PULSE OXIMETRY 97 02/21/2025 09:26:02 [facility] WEIGHT 228 02/21/2025 09:26:02 [facility] BMI 36 kg/m2 02/21/2025 09:26:02 [facility] PAIN 0 02/21/2025 09:26:02 [facility] HEIGHT 67 02/21/2025 09:26:02 [facility] TEMPERATURE 98.2 02/21/2025 09:26:02 [facility] PULSE 89 02/21/2025 09:26:02 [facility] RESPIRATION 20 02/21/2025 09:26:02 [facility] SYSTOLIC BLOOD PRESSURE 149 01/05/2025 14:30:00 [facility] DIASTOLIC BLOOD PRESSURE 103 01/05/2025 14:30:00 [facility] PULSE OXIMETRY 98 01/05/2025 14:30:00 [...] HCS DIASTOLIC BLOOD PRESSURE 80 12/09/2024 10:22:00 [facility] PULSE OXIMETRY 98 12/09/2024 10:22:00 [facility] TEMPERATURE 98.5 12/09/2024 10:22:00 [facility] 66 12/09/2024 10:22:00 [facility] RAMIREZ [facility] Encounters Combined list of: 1) Encounters from Department of Veterans Affairs facilities going backup to the last 18 months, not all VA inpatient encounters are included; 2) Encounters from the Department of Defense facilities going backup to 280 months. Location Location Details Encounter Type Encounter Number Reason For Visit Attending Provider ADM Date DC Date Status Disposition Source [facility](Me d. Assessmen t/1523) OUTPATIENT [id number] MELIDA MENDIOLA 03/30 Released w/o Limitations [facility]( Med. Assessm ent/152 3) [facility](Au diology [facility] 1523) OUTPATIENT [id number] KAYODE COOPER 03/30 Released w/o Limitations [facility]( Audiolo gy [facility] 1523) [facility](Op tometry [facility] 1523) OUTPATIENT [id number] SOULEYMANE RODRIGUEZ 03/30 Released w/o Limitations [facility]( Optomet ry [facility] 1523) [facility] [place](We ekend Mil Sick Call 1007) OUTPATIENT [id number] Cold pack AMBROSIO MANUEL 03/30 Released w/o Limitations [facility]( Weekend Mil Sick Call 1007) [facility](Fe male Screening 1523) OUTPATIENT [id number] inpro BRENDAN MC 04/02 Released w/o Limitations [facility]( Female Screeni ng 1523) [facility](We llness Clinic Female) OUTPATIENT [id number] class BRENDAN MC 04/02 Released w/o Limitations [facility]( Wellnes s Clinic Female) [facility](We ekend Mil Sick Call 1007) OUTPATIENT [id number] SAMI Ortiz 04/08 Released with Work/Duty Limitations [facility]( Weekend Mil Sick Call 1007) Home [facility](Sm art Team 1007) OUTPATIENT [id number] right shoulde r pain RANDAL FUENTES 04/10 Released w/o Limitations [facility]( Smart Team 1007) [facility](10 07 Phys Therapy) OUTPATIENT [id number] pt ELO, DEE Arora 04/10 Released with Work/Duty Limitations [facility]( 1007 Phys Therapy ) [facility](Sh ip 9 Sickcall Guy) OUTPATIENT [id number] cold sx 98.5 KAM CHACONTA H 05/21 Released w/o Limitations [facility]( Ship 9 Sickcal l Guy ) [facility] [place] T1) OUTPATIENT [id number] cough LEIGHTON REDD 05/24 Released w/o Limitations [facility] [place] T1) [facility] [place] T1) OUTPATIENT [id number] sep pe ROSE SMITH 05/30 Released w/o Limitations [facility] [place] T1) [facility](Optomet ry [place]) OUTPATIENT [id number] ree f/u from [employer] opto per WICHO Molina 06/13 Released w/o Limitations [facility](Opt ometry [place]) [facility] [place] T1) OUTPATIENT [id number] f/u for bronchi tis inhaler not helping with breathi ng LEIGHTON REDD 06/21 Released w/o Limitations [facility] [place] T1) [facility](Health Promotion s [place]) OUTPATIENT [id number] control educati on class GRISELDA ORTIZ 06/28 Released w/o Limitations [facility](Hea lth Promoti ons [place]) [facility] [place] T1) OUTPATIENT [id number] B/L LEG PAIN BAM LORD 07/17 Released w/o Limitations [facility] [place] T1) [facility] [place] T1) OUTPATIENT [id number] CONJEST ION EAR PAIN IRON RICHARDSON 09/27 Sick at Home/Quarter s [facility] [place] T1) [facility] [place] T1) OUTPATIENT [id number] ear and neck pain BAM LORD 10/15 Released w/o Limitations [facility] [place] T1) [facility] [place] T1) OUTPATIENT [id number] ear pain DEBRAIRON Bailon 10/17 Sick at Home/Quarter s [facility] [place] T1) [facility] [place] T1) OUTPATIENT [id number] POSS LIG TEAR/ER VISIT LAST PM/NMCP SARAH ROSE L 10/30 Sick at Home/Quarter s [facility] [place] T1) [facility]) [facility] [id number] LEFT KNEE PAIN LEELA SMITHE L 11/01 Released w/o Limitations [facility] [place] T1) [facility] [place] T1) OUTPATIENT [id number] med NATA Oscar 11/07 Released with Work/Duty Limitations [facility] [place] T1) [facility] OUTPATIENT [id number] CONTROL OPTIONS SARAH ROSE L 11/14 Released w/o Limitations [facility] [place] T1) [facility]) OUTPATIENT [id number] KNEE SPRAIN PURA SOTO 11/15 Released w/o Limitations [facility]) [facility]) OUTPATIENT [id number] f/u lt. knee PURA SOTO 11/28 Released w/o Limitations [facility]) [facility]) OUTPATIENT [id number] f/u lt. knee sprain SOTO PURA Xiomy 12/12 Released w/o Limitations [facility]([place] [place] [facility]) [facility](Orthope dic NMCP) OUTPATIENT [id number] MAGDALENO TREADWELL 12/12 Released w/o Limitations [facility](Ort hopedic NMCP) [facility](Immuniz ation NMCP) OUTPATIENT [id number] NMITC MARIANNA Martin 12/20 Released w/o Limitations [facility](Imm unizati on NMCP) [facility] T1) OUTPATIENT [id number] BACK PAIN NATA WHITE 01/03 Released w/o Limitations [facility] T1) [facility]) OUTPATIENT [id number] f/u lt. knee PURA SOTO 01/14 Released w/o Limitations [facility]) [facility] T1) OUTPATIENT [id number] vomitin g IRON RICHARDSON 01/24 Released w/o Limitations [facility] T1) OUTPATIENT [id number] FOLLOW UP IRON RICHARDSON 01/29 Released w/o Limitations [facility] [place] T1) [facility] T1) OUTPATIENT [id number] nausea/ vomitin g x 1 day BAM LORD 02/20 Released w/o Limitations [facility] [place] T1) [facility] T1) OUTPATIENT [id number] lab results BAM LORDLAS 02/27 Released w/o Limitations [facility] T1) TAM, MD(Emerge txy Rm) OUTPATIENT [id number] VICKICarsonRUSTYKELLY J 03/11 Released w/o Limitations [facility], [facility], MD( [facility]) OUTPATIENT [id number] poss sinus infx MAGDY(ID C), CAROLEE L 07/16 Released w/o Limitations [facility], MD( [facility]) [facility], MD( [facility]) OUTPATIENT [id number] ear pain ROBERTO ABARCA A 07/23 Released with Work/Duty Limitations [facility], MD( [facility]) [facility], MD([facility]) OUTPATIENT [id number] concers of std/ has sex SONYA FRANCISCO 07/31 Released w/o Limitations [facility], MD([facility]) [facility]) [facility] [id number] MYRIAM KASHMIR A 08/10 Released w/o Limitations [facility], MD(Danielle gency ) [facility], MD([facility]) OUTPATIENT [id number] JOE GOLDBERG 10/10 Released with Work/Duty Limitations [facility], [facility] Naval Support Activity [facility] OUTPATIENT [id number] Notes Entered by: Isauro NUNN 05 May 2013 1041 ------- ------- ------- ------- -- Anthrax , Typhoid WOLFGANG NUNN 05/05 Released w/o Limitations [facility] [employer] [facility] [place] (Immuni zations Clinic) [facility] [employer] [facility] [place]([facility] mmuniz[facility] ons Clinic) OUTPATIENT [id number] Notes Entered by: Isauro NUNN 10 May 2013 1529 ------- ------- ------- ------- -- Smallpo x WOLFGANG NUNN A 05/10 Released w/o Limitations [facility] [employer] [place] (Immuni zations Clinic) [facility] [employer] [facility] [place]([facility] OUTPATIENT [id number] COLD-LI KE S/S HELEN ESPINOZA A 05/12 Released w/o Limitations [facility] [employer] Support Activit y [place] ([facility]) [facility] [employer] [place]([facility] OUTPATIENT [id number] collarb one pain HELEN ESPINOZA A 05/18 Released w/o Limitations [facility] [employer] Support [employer] y [place] ([facility]) [facility] [employer] Support Activity [place]([facility] OUTPATIENT [id number] Notes Entered by: RANDAL FERNANDO 20 May 2013 1229 ------- ------- ------- ------- -- PDV Reactio n JANINA CRISOSTOMO P 05/20 Released w/o Limitations [facility] [employer] Support [employer] [place] ([facility]) [facility] [employer] Support [facility] [place]([facility] OUTPATIENT [id number] acute RLQ pain JANINA CRISOSTOMO P 05/23 Released w/o Limitations [facility] [employer] y [place] ([facility]) [facility] [employer] Support Activity [place]([facility] OUTPATIENT [id number] stomach pain JANINA CRISOSTOMO P 06/05 Released w/o Limitations [facility] [employer] [place] ([facility]) [facility] [employer] Support Activity [place]( [facility]-[place] [facility]) OUTPATIENT [id number] f/u SIQ JANINA CRISOSTOMO P 06/06 Released w/o Limitations [facility] [employer] Support [employer] y [place] ([facility] [place] [facility] OFFICE O/P [place] 60 MIN [id number] Diagnos is: ICD-10- CM 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 Eunice MOODY 11/06 [facility] EMERGENCY DEPT VISIT MOD MDM [id number] Diagnos is: ICD-10- CM R53.82 Chronic fatigue , 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 IBRAHIMA FOFANA A 11/08 [facility] PRO PHONE CALL 21-30 MIN [id number] [id number] Diagnos is: ICD-10- CM F39 Unspeci fied mood [affect margaux] disorde r MICHELLE,KEVIN EE E 11/11 [facility] OFFICE O/P EST HI 40 MIN [id number] Diagnos is: ICD-10- CM R51.9 Headach e, 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 PARADISE,H TWAN PAL 11/11 [facility] Outpatient Encounter [id number] 11/11 [facility] OFF/OP EST MAY X REQ PHY/QHP [id number] [id number] Diagnos is: ICD-10- CM 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, 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 TRUDI FITZGERALD 11/12 [facility] Outpatient Encounter [id number] 11/19 [facility] Outpatient Encounter [id number] 11/19 [facility] Outpatient Encounter [id number] 11/26 [facility] OFFICE O/P EST MOD 30 MIN [id number] [id number] Diagnos is: ICD-10- CM 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 Elaine OCASIO 11[facility] Outpatient Encounter [id number] 11/28 [place] [place] [facility] Outpatient Encounter [id number] 12/04 [place] [facility] OFF[facility]/P NEW LOW 30 MIN [id number] Diagnos is: ICD-10- CM H52.13 Myopia, bilater al REMINGTON DAWSON M 12/08 [facility] Outpatient Encounter [id number] RAPHAEL PIZANO 12/30 [place] [facility] 40 MIN [id number] Diagnos is: ICD-10- CM 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 EUGENIA Moore 12/31 [facility] Outpatient Encounter [id number] 12/31 [facility] SENSORY INTEGRATIO N [id number] [id number] Diagnos is: ICD-10- CM H53.71 Glare sensiti JEAN PAUL Collins 01/06 [facility] SELF CARE MNGMENT TRAINING [id number] Diagnos is: ICD-10- CM H55.81 Deficie nt saccadi c eye movemen TRUDI Beckett 01/07 [facility] Outpatient Encounter [id number] 01/12 [place] [facility] SENSORY INTEGRATIO N [id number] [id number] Diagnos is: ICD-10- CM H53.71 Glare sensiti JEAN PAUL CollinsN 01/14 [facility] Outpatient Encounter [id number] 01/14 [facility] EMERGENCY DEPT VISIT LOW MDM [id number] [id number] Diagnos is: ICD-10- CM R10.12 Left upper quadran t pain Riley FERNANDEZ 01/18 [facility] Outpatient Encounter [id number] GABRIELA BERKOWITZ 01/20 [facility] PSYCH DIAGNOSTIC EVALUATION [id number] Diagnos is: ICD-10- CM Z65.8 Oth problem s related to psychos ocial circums OLAYINKA Trinidad 01/20 [facility] OFFICE O/P [place] 60 MIN [id number] [id number] Diagnos is: ICD-10- CM D61.818 Other pancyto penia SCARIA,FILI RGE S 01/20 [facility] EMERGENCY DEPT VISIT MOD MDM [id number] [id number] Diagnos is: ICD-10- CM R10.10 Upper abdomin al pain, 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 Xiomy STEIN C 01/22 [facility] Outpatient Encounter [id number] 01/26 [facility] OFFICE O/P EST HI 40 MIN [id number] [id number] Diagnos is: ICD-10- CM D61.818 Other pancyto penia SCARIA,FILI RGE S 01/27 [facility] SELF CARE MNGMENT TRAINING [id number] Diagnos is: ICD-10- CM H55.81 Deficie nt saccadi c eye movemen TRUDI Beckett 01/28 [facility] CASE MANAGEMENT [id number] Diagnos is: ICD-10- CM Z65.8 Oth problem s related to psychos ocial circums FERNANDEZ Hooker EA 02/01 [facility] OFFICE O/P EST HI 40 MIN [id number] [id number] Diagnos is: ICD-10- CM 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 JOHN NUGENT 02/02 [facility] Outpatient Encounter [id number] GABRIELA BERKOWITZ 02/02 [facility] EMERGENCY DEPT VISIT MOD MDM [id number] Diagnos is: ICD-10- CM B34.9 Viral infecti on, unspeci THOMAS Hernandez 02/06 [facility] Outpatient Encounter [id number] [id number] 02/09 [facility] Outpatient Encounter [id number] 02/16 [facility] SELF CARE MNGMENT TRAINING [id number] [id number] Diagnos is: ICD-10- CM R51.9 Headach e, unspeci DAMARIS Jackson 02/18 [facility] OFFICE O/P EST HI 40 MIN [id number] [id number] Diagnos is: ICD-10- CM D61.818 Other pancyto penia SCARIA,FILI RGE S 02/22 [facility] Outpatient Encounter [id number] [id number] 02/23 [facility] Outpatient Encounter [id number] [id number] 02/23 [facility] Outpatient Encounter [id number] 02/25 [facility] [place] [facility] Outpatient Encounter [id number] [id number] 02/25 [facility] [place] [facility] Outpatient Encounter [id number] [id number] 02/28 [facility] [place] [facility] Outpatient Encounter [id number] [id number] 03/03 [facility] [place] [facility] Outpatient Encounter [id number] [id number] 03/03 [facility] [place] [facility] Outpatient Encounter [id number] SYSTEM,CIS -ARK 03/10 [facility] EMERGENCY DEPT VISIT MOD MDM [id number] [id number] Diagnos is: ICD-10- CM R10.10 Upper abdomin al pain, 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 GAIL SOW 03/10 [facility] Outpatient Encounter [id number] [id number] 03/17 [facility] Outpatient Encounter [id number] NUGENTJOHN 03/18 [facility] NEUROMUSCU LAR REEDUCATIO N 71040-1.61 [id number] Diagnos is: ICD-10- CM 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 DAMARIS IBANEZ 03/22 [facility] EMERGENCY DEPT VISIT LOW MDM 76065-7.61 [id number] Diagnos is: ICD-10- CM R51.9 Headach e, 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 SHANE,LES LIE A 03/22 [facility] Outpatient Encounter [id number] [id number] 03/22 [facility] OFFICE O/P EST HI 40 MIN [id number] [id number] Diagnos is: ICD-10- CM R51.9 Headach e, 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 JOHN NUGENT L 03/22 [place] [facility] [place] [facility] Outpatient Encounter [id number] [id number] 03/30 [place] [facility] [place] [facility] Outpatient Encounter [id number] [id number] JOHN NUGENT L 04/05 [place] [facility] [place] [facility] Outpatient Encounter [id number] [id number] 04/06 [place] [facility] [place] [facility] Outpatient Encounter [id number] [id number] Eunice MOODY 04/08 [facility] NEUROMUSCU LAR REEDUCATIO N 20704-2.61 [id number] Diagnos is: ICD-10- CM R51.9 Headach e, 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 CHRISTIANO STEEN 04/11 [facility] Outpatient Encounter [id number] [id number] 04/20 [facility] OFFICE O/P EST HI 40 MIN [id number] [id number] Diagnos is: ICD-10- CM R16.1 Splenom egaly, not elsewhe re classif ied SCARIA,FILI RGE S 04/26 [facility] [place] [facility] Outpatient [facility]counter [id number] [id number] RA LETY RIOS 04/27 [facility] MANUAL THERAPY 1/> REGIONS [id number] [id number] Diagnos is: ICD-10- CM R51.9 Headach e, 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 DAMARIS IBANEZ 04/28 [facility] [place] [facility] Outpatient Encounter [id number] [id number] 04/29 [facility] [place] [facility] Outpatient Encounter [id number] [id number] 04/29 [facility] [place] [facility] Outpatient Encounter [id number] [id number] 04/29 [facility] OFF/OP CONSLTJ NEW/EST HI 55 [id number] [id number] Diagnos is: ICD-10- CM R59.1 General ized enlarge d lymph nodes JEFFERY ANGUIANO 05/03 [facility] OFFICE O/P EST HI 40 MIN [id number] [id number] Diagnos is: ICD-10- CM R51.9 Headach e, 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 Eunice MOODY 05/04 [facility] Outpatient Encounter [id number] [id number] 05/09 [facility] Outpatient Encounter [id number] [id number] 05/13 [facility] NEUROMUSCU LAR REEDUCATIO N 35104-4.61 [id number] Diagnos is: ICD-10- CM 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 DAMARIS IBANEZ 05/17 [facility] Outpatient Encounter [id number] [id number] 05/18 [facility] EMERGENCY DEPT VISIT [facility] [id number] [id number] Diagnos is: ICD-10- CM H69.83 Other specifi ed disorde rs of Eustach tio tube, bilater al NESS,SYLVI A O 05/19 [facility] Outpatient Encounter [id number] [id number] 05/31 [facility] [place] [facility] Outpatient Encounter [id number] [id number] 06/08 [facility] Outpatient Encounter [id number] [id number] 06/10 [facility] [place] [facility] Outpatient Encounter [id number] [id number] 06/13 [facility] [place] [facility] Outpatient Encounter [id number] [id number] 06/22 [facility] [place] [facility] CASE MANAGEMENT [id number] [id number] Diagnos is: ICD-10- CM 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 VEENA SINGLETON Maris 06/22 [facility] Outpatient Encounter [id number] [id number] ROD GONZALES 06/23 [facility] OFFICE O/P EST MOD 30 MIN [id number] [id number] Diagnos is: ICD-10- CM 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 EUGENIA Moore 07/01 [facility] Outpatient Encounter [id number] [id number] 07/05 [facility] [place] [facility] Outpatient Encounter [id number] [id number] 07/13 [facility] Outpatient Encounter [id number] [id number] ROD GONZALES 07/13 [facility] Outpatient Encounter [id number] [id number] 07/15 [facility] MANAGER OPERATIONS AND PROCUREMENT STDY UNATTENDED [id number] [id number] Diagnos is: ICD-10- CM G47.9 Sleep disorde r, 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 OLAYINKA WALSH 07/22 [facility] [place] [facility] Outpatient Encounter [id number] [id number] SYSTEM,CIS -ARK 07/24 [facility] EMERGENCY DEPT VISIT MOD MDM [id number] [id number] Diagnos is: ICD-10- CM R10.10 Upper abdomin al pain, 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 RITA LYNN A 07/24 [facility] [place] [facility] Outpatient Encounter [id number] [id number] 07/25 [place] [facility] [place] [facility] Outpatient Encounter [id number] [id number] 07/28 [facility] [place] [facility] Outpatient Encounter [id number] [id number] 08/01 [facility] OFFICE O/P EST HI 40 MIN [id number] [id number] Diagnos is: ICD-10- CM 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 [id number] Diagnos is: ICD-10- CM R51.9 Headach e, 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 Eunice MOODY 08/16 [facility] Outpatient Encounter [id number] [id number] 08/22 [facility] EMERGENCY DEPT VISIT MOD MDM [id number] [id number] Diagnos is: ICD-10- CM R30.0 Dysuria IBRAHIMA CHAMBERLAIN 08/23 [facility] Outpatient Encounter [id number] [id number] 08/31 [place] [facility] [place] [facility] Outpatient Encounter [id number] [id number] 09/02 [place] [facility] [place] [facility] Outpatient Encounter [id number] [id number] 09/12 [place] [facility] [place] [facility] CASE MANAGEMENT [id number] Diagnos is: ICD-10- CM 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 VEENA SINGLETON Y 10/04 [place] [facility] [place] [facility] Outpatient Encounter [id number] [id number] 10/10 [facility] [place] [facility] NEUROMUSCU LAR REEDUCATIO N 17345-6.61 [id number] Diagnos is: ICD-10- CM M54.2 Cervica DAMARIS Mosquera 10/10 [facility] [place] [facility] Outpatient Encounter [id number] [id number] 10/25 [place] [facility] [place] [facility] OFFICE O/P EST HI 40 MIN [id number] [id number] Diagnos is: ICD-10- CM R16.1 Splenom egaly, not elsewhe re classif ied SCARIA,FILI RGE S 10/25 [facility] [place] [facility] Outpatient Encounter [id number] [id number] 11/10 [place] [facility] [place] [facility] Outpatient Encounter [id number] [id number] 11/18 [place] [facility] [place] [facility] Outpatient Encounter [id number] [id number] 11/22 [place] [facility] [place] [facility] OFFICE O/P EST HI 40 MIN [id number] [id number] Diagnos is: ICD-10- CM R16.1 Splenom egaly, not elsewhe re classif ied SCARIA,FILI RGE S 11/22 [facility] Outpatient Encounter [id number] [id number] 11/23 [facility] OFFICE O/P EST MOD 30 MIN [id number] [id number] Diagnos is: ICD-10- CM H55.81 Deficie nt saccadi c eye movemen ts EUGENIA SCHWARTZ 11/25 [facility] Outpatient Encounter [id number] [id number] Federico VAN CACHORRO Zeyad 11/25 [facility] EMERGENCY DEPT VISIT MOD MDM [id number] [id number] Diagnos is: ICD-10- CM R53.1 LIZZIE Melgar 11/26 [facility] OFFICE O/P NEW MOD 45 MIN [id number] [id number] Diagnos is: ICD-10- CM 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 JOSIAH RODRIGUEZ R 11/26 [facility] Outpatient Encounter [id number] [id number] 11/28 [facility] OFF/OP CONSLTJ NEW/EST HI 55 [id number] [id number] Diagnos is: ICD-10- CM 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 DUARTE FRANCOIS 11/30 [facility] Outpatient Encounter [id number] [id number] TRUDI FITZGERALD 12/01 [facility] PH1 ASSMT&MGMT NQHP 5-10 [id number] [id number] Diagnos is: ICD-10- CM 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 VEENA SINGLETON 12/01 [facility] OFF/OP CONSLTJ NEW/EST HI 55 [id number] [id number] Diagnos is: ICD-10- CM 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 Zeyad MINAYA 12/02 [place] [facility] [place] [facility] Outpatient Encounter [id number] [id number] TRUDI FITZGERALD 12/07 [place] [facility] [place] [facility] Outpatient Encounter [id number] [id number] 12/07 [place] [facility] [place] [facility] Outpatient Encounter [id number] [id number] 12/09 [place] [facility] [place] [facility] Outpatient Encounter [id number] [id number] 12/09 [place] [facility] [place] [facility] Outpatient Encounter [id number] [id number] 12/09 [place] [facility] [place] [facility] Outpatient Encounter [id number] [id number] 12/09 [place] [facility] [place] [facility] Outpatient Encounter [id number] [id number] 12/09 [place] [facility] [place] [facility] OFFICE O/P EST HI 40 MIN [id number] [id number] Diagnos is: ICD-10- CM R53.1 SHABANA Powell 12/13 [place] [facility] [place] [facility] Outpatient Encounter [id number] [id number] 12/21 [place] [facility] [place] [facility] OFFICE O/P EST MOD 30 MIN [id number] [id number] Diagnos is: ICD-10- CM 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 LAUREL GAVIN 12/22 [place] [facility] [place] [facility] THERAPEUTI C EXERCISES 93841-6.61 [id number] Diagnos is: ICD-10- CM G89.29 Other chronic pain YANICK BRAGG 12/23 [facility] SELF CARE MNGMENT TRAINING 43546-561 [id number] Diagnos is: ICD-10- CM G89.29 Other chronic pain GONZALES HERNANDEZ J 12/28 [facility] PSYCH DIAGNOSTIC EVALUATION [id number] [id number] Diagnos is: ICD-10- CM F43.10 Post-tr aumatic stress disorde r, 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 JANINA BRAMBILA W 12/29 [facility] PSYCH DIAGNOSTIC EVALUATION [id number] [id number] Diagnos is: ICD-10- CM Z65.9 Problem related to 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 psychos ocial circums DO RODRÍGUEZ Hess 01/02 [facility] Outpatient Encounter [id number] 01/04 [facility] Outpatient Encounter [id number] TRUDI FITZGERALD 01/05 [facility] EMERGENCY DEPT VISIT LOW MDM 72826-3.61 [id number] Diagnos is: ICD-10- CM J11.89 Influen za due to unident ified influen za virus w oth manifes t SUSAN ZURITA IN J 01/05 [facility] Outpatient Encounter [id number] [id number] 01/06 [facility] Outpatient Encounter [id number] [id number] 01/09 [facility] SELF CARE MNGMENT TRAINING 82420-461 [id number] Diagnos is: ICD-10- CM 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 ALBARO ROPER 01/10 [facility] Outpatient Encounter [id number] Nikita MOODY 01/12 [place] [facility] [place] [facility] PSYTX W PT 45 MINUTES 41680-6.61 [id number] Diagnos is: ICD-10- CM F43.10 Post-tr aumatic stress disorde r, unspeci JANINA Zendejas 01/16 [place] [facility] [place] [facility] Outpatient Encounter [id number] TRUDI FITZGERALD 01/16 [place] [facility] [place] [facility] THERAPEUTI C EXERCISES [id number] [id number] Diagnos is: ICD-10- CM G89.29 Other chronic pain YANICK BRAGG 01/18 [place] [facility] [place] [facility] Outpatient Encounter [id number] 01/23 [place] [facility] [place] [facility] PSYTX W PT 45 MINUTES [id number] [id number] Diagnos is: ICD-10- CM F43.10 Post-tr aumatic stress disorde r, unspeci JANINA Zendejas 01/23 [place] [facility] [place] [facility] Outpatient Encounter [id number] 01/23 [place] [facility] [place] [facility] Outpatient Encounter [id number] [id number] 01/24 [place] [facility] [place] [facility] PSYCH DIAGNOSTIC EVALUATION [id number] [id number] Diagnos is: ICD-10- CM 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 FERNANDEZ HENRIQUEZ EA 01/25 [place] [facility] [place] [facility] Outpatient Encounter [id number] [id number] 02/01 [place] [facility] [place] [facility] Outpatient Encounter [id number] [id number] 02/06 [place] [facility] [place] [facility] Outpatient Encounter [id number] [id number] 02/10 [facility] [place] [facility] Outpatient Encounter 04915-3.61 [id number] 02/10 [facility] [place] [facility] Outpatient Encounter [id number] [id number] MELANIE KULDIPREECE 02/16 [facility] OFFICE O/P EST HI 40 MIN [id number] [id number] Diagnos is: ICD-10- CM R16.1 Splenom egaly, not elsewhe re classif ied SCARIA,FILI RGE S 02/21 [facility] PROGRAM INTAKE ASSESSMENT [id number] [id number] Diagnos is: ICD-10- CM 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 VEENA SINGLETON 02/23 [facility] Outpatient Encounter [id number] [id number] AUDREY NEVILLE 02/28 [facility] Outpatient Encounter 28922-5.61 [id number] 03/14 [facility] Outpatient Encounter [id number] [id number] 03/20 [facility] Outpatient Encounter [id number] [id number] 03/20 [facility] PSYTX W PT 45 MINUTES 37769-3.61 [id number] Diagnos is: ICD-10- CM F33.9 Major depress margaux disorde r, recurre nt, 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 JANINA BRAMBILA W 03/22 [facility] COMMUNITY/ WORK REINTEGRAT ION 63753-5.61 [id number] Diagnos is: ICD-10- CM M54.6 Pain in thoraci c spine GONZALES HERNANDEZ 03/24 [facility] Outpatient Encounter [id number] [id number] 03/27 [facility] [place] [facility] OFFICE O/P EST HI 40 MIN 98114-3.61 [id number] Diagnos is: ICD-10- CM 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 clau MATTYOSWALDOSavannahZeyad 04/11 [facility] [place] [facility] Outpatient Encounter [id number] [id number] 04/14 [facility] [place] [facility] Outpatient Encounter [id number] [id number] 04/14 [facility] [place] [facility] PSYTX W PT 45 MINUTES [id number] [id number] Diagnos is: ICD-10- CM F43.12 Post-tr aumatic stress disorde r, chronic JANINA BRAMBILA W 04/17 [facility] [place] [facility] Outpatient Encounter [id number] [id number] GONZALES HERNANDEZ 04/19 [facility] [place] [facility] PSYTX W PT 45 MINUTES [id number] [id number] Diagnos is: ICD-10- CM F43.12 Post-tr aumatic stress disorde r, chronic JANINA BRAMBILA W 04/24 [facility] OFFICE O/P EST HI 40 MIN 46332-7.61 [id number] Diagnos is: ICD-10- CM H55.81 Deficie nt saccadi c eye movemen ts EUGENIA SCHWARTZ 04/28 [facility] Procedures Combined list of: 1) Procedures from Department of Veterans Affairs facilities going back up to thelast 18 months, not all [place] non-surgical procedures are included; 2) All procedures from the Department of Defense facilities. Procedure Procedure Type Code Date Perfomer Comments Sourc e UNLISTED VACCINE/TOXOID 013 [facility] ANTHRAX VACCINE, FOR SUBCUTANEOUS OR INTRAMUSCULAR USE [facility] ELECTROCARDIOGRAM, ROUTINE ECG WITH AT LEAST 12 LEADS; TRACING ONLY, WITHOUT INTERPRETATION AND REPORT 011 [facility] ONDANSETRON HYDROCHLORIDE, ORAL, 4MG (FOR CIRCUMSTANCES FALLING UNDER THE MEDICARE STATUTE, USE Q0179) [facility] INJECTION, HYDROMORPHONE, UP TO 4 MG [facility] TYPHOID VACCINE, CAPSULAR POLYSACCHARIDE (VICPS), FOR INTRAMUSCULAR USE [facility] THERAPEUTIC PROCEDURE, 1 OR MORE AREAS, EACH 15 MINUTES; THERAPEUTIC EXERCISES TO DEVELOP STRENGTH AND ENDURANCE, RANGE OF MOTION AND FLEXIBILITY [facility] SCREENING [place]OU SMEAR; OBTAINING, PREPARING AND CONVEYANCE OF CERVICAL OR VAGINAL SMEAR TO LABORATORY [facility] BUPRENORPHINE IMPLANT, 74.2 MG [facility] SCREENING TEST OF VISUAL ACUITY, QUANTITATIVE, BILATERAL [facility] AUDIOMETRIC TESTING OF GROUPS [facility] COLLECTION OF VENOUS BLOOD BY VENIPUNCTURE [facility] SKIN TEST; TUBERCULOSIS, INTRADERMAL [facility] INFLUENZA VIRUS VACCINE, PANDEMIC FORMULATION, H1N1 [facility] KNEE ORTHOSIS, ELASTIC WITH CONDYLAR PADS AND JOINTS, WITH OR WITHOUT PATELLAR CONTROL, PREFABRICATED, INCLUDES FITTING AND ADJUSTMENT [facility] PRESCRIPTION DRUG, BRAND NAME [facility] NONINVASIVE EAR OR PULSE OXIMETRY FOR OXYGEN SATURATION; SINGLE DETERMINATION [facility] FITTING OF SPECTACLES, EXCEPT FOR APHAKIA; MONOFOCAL [facility] ALBUTEROL, UP TO 2.5 MG AND IPRATROPIUM BROMIDE, UP TO 0.5 MG, FDA-APPROVED FINAL PRODUCT, NON-COMPOUNDED, ADMINISTERED THROUGH DME [facility] Vaccines Vaccines 65530 JAMIE MARS Patient received smallpox vaccine via scarification technique/ 15 jabs to the upper arm lot - 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, 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 - [employer] DoD Immunization Administration One Vaccine Immunization Administration One Vaccine 07378 JAMIE MARS DoD Immunization Administration Each Additional Vaccine Immunization Administration Each Additional Vaccine 88119 WOLFGANG NUNN [facility] Typhoid Vaccine Vi Capsular Polysaccharide, For Intramus Use Typhoid Vaccine Vi Capsular Polysaccharide, For Intramus Use 97239 WOLFGANG NUNN Lot # [id number], [employer], Left Deltoid DoD Immunization Administration One Vaccine Immunization Administration One Vaccine 83166 013 WOLFGANG NUNN Influenza Virus Vaccine Pandemic Formulation Influenza Virus Vaccine Pandemic Formulation 87108 010 CHÁVEZMARIANNA Nikita Surinder Immunization Admin By Intranasal / Oral Route One Vaccine Immunization Admin By Intranasal / Oral Route One Vaccine [id number] 010 MARIANNA CHÁVEZ Nikita Surinder Knee orthosis, elastic with condylar pads and joints, with or without patellar control, prefabricated, includes fitting and adjustment 010 MAGDALENO TREADWELL 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 Checkout For Ortho/Prosth Use Estab 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 For Ortho/Prosth Use Estab Patient [id number] MAGDALENO TREADWELL left knee, misty Surinder Pulse Oximetry Pulse Oximetry 54242 [id number] LEIGHTON REDD [employer] Fitting Monofocals (Not For Aphakia) [employer] Fitting Monofocals (Not For Aphakia) 23220 009 WICHO MORALES Ophthalmological New Patient Start Comprehensive Care Ophthalmological New Patient Start Comprehensive Care 31718 WICHO MORALES Determination Of Refractive State Determination Of Refractive State 77773 WICHO MORALES Albuterol, up to 2.5 mg and ipratropium bromide, up to 0.5 mg, FDA-approved final product, non-compounded, administered through DME LEIGHTON REDD Pulmonary Function Tests Peak Expiratory Flow Pulmonary Function Tests Peak Expiratory Flow 91384 LEIGHTON REDD Pulse Oximetry Pulse Oximetry 38723 009 LEIGHTON REDD Physical Therapy: ___ Se ion Segments, 15 Minutes Each Physical Therapy: ___ Session Segments, 15 Minutes Each 87810 009 DEE GASCA PT A e ment Kinetic Training PT Assessment Kinetic Training 95255 009 DEE GASCA Modalities Electrical Stimulation Modalities Electrical Stimulation 20377 009 DEE GASCA Screening papanicolaou smear; obtaining, preparing and conveyance of cervical or vaginal smear to laboratory 06/03/12 BRENDAN MC [facility] Screening Test Of Visual Acuity, Quantitative, Bilateral Screening Test Of Visual Acuity, Quantitative, Bilateral 21067 SOULEYMANE RODRIGUEZ [facility] Determination Of Refractive State Determination Of Refractive State 00529 SOULEYMANE RODRIGUEZ [facility] [employer] Fitting Monofocals (Not For Aphakia) [employer] [facility] Fitting Monofocals (Not For Aphakia) 26039 SOULEYMANE RODRIGUEZ [facility] Audiometry Group Testing Audiometry Group Testing 03103 KAYODE COOPER [facility] Threshold Audiogram (Pure Tone) Threshold Audiogram (Pure Tone) 29844 KAYODE COOPER [facility] Social History Combined list of available smoking, tobacco, and other social history from Department of Defense and Veterans Affairs facilities. Social History Type Response Date Comment Sourc e Tobacco smoking status NHIS VA-TOBACCO FORMER USER 11/27/2023 [facility] IS [facility] History of tobacco use CO-TOBACCO QUIT 5 TO < 15 YRS 11/27/2023 [facility] History of tobacco use CO-TOBACCO FORMER USER 01/14/2023 [facility] This section is an empty social history section. [facility] Plan of Care List of future care activities from Department of Veterans Affairs facilities. Additional future care activities may be listed in the Assessment and Plan section. Date/Time Care Activity Care Activity Detail Facili ty 05/03/2025 AMBULATORY - REHAB MEDICINE AMBULATORY - REHAB MEDICINE [facility]
[2025-05-02 09:41] VITALS: BP 137/85; PULSE 80; RESP 18; TEMP 36.9; O2SAT 97; BMI 36.0
[2025-05-02 10:10] LABS: Appearance Urine Clear (Clear)
[2025-05-02 10:12] LABS: Ur HCG Qualitative* Negative (Negative)
[2025-05-02] MEDS: ONDANSETRON ODT 4 MG TAB PO (10:14)
[2025-05-02 10:16] LABS: Lactate* 1.0 mmol/L (0.5-1.9)
--- NOTE | 2025-05-02 10:16 | ED_ITS ---
HPI - General Adult General Chief complaint: Abdominal Pain Stated complaint: lower abdominal pain Time Seen by Provider: 05/02/25 09:40 Source: patient Mode of arrival: ambulatory Limitations: no limitations History of Present Illness HPI narrative: 35-year-old female coming in today complaining of lower abdominal discomfort. She states that it feels like her bladder is very full even when she does not have to go to the bathroom. She denies dysuria, increased urinary frequency or urgency. She states that she feels nauseated and has had a decreased appetite for 2 days. She states that she has had daily bowel movements, is passing gas regularly. Bowel movements are soft which is unusual for her. She denies any blood in her urine or stool. Denies any changes in the center of her urine. She denies any vomiting. No fevers or chills. No changes in her medications, only takes gabapentin for tremors. Patient has a history of a traumatic brain injury. She is sexually active and uses condoms for contraception. Related Data Home Medications ?Medication ?Instructions ?Recorded ?Confirmed gabapentin 400 mg tablet 400 mg PO TID 01/04/2505/02 Allergies Allergy/AdvReac Type Severity Reaction Status Date / Time No Known Drug Allergies Allergy Verified 05/02/25 09:44 Review of Systems Status of ROS: Reports: 10 or more systems reviewed and unremarkable except as noted in History and below Exam Narrative: Exam Narrative: Well-nourished patient in no acute distress. Alert and oriented. Answers questions appropriately. Mood and affect are appropriate. Thoughts are goal oriented and rational. No tangential or magical thinking noted. Patient speaks in full sentences without needing to catch her breath. HEENT: Normocephalic atraumatic. Pupils are equally round reactive to light. Extraocular muscles are intact. Conjunctivae are moist without any icterus noted. Moist mucous membranes. Cardiovascular: Heart is regular rate and rhythm S1 and S2 are present without any murmurs. Lungs: Clear to auscultation bilaterally no wheezes rhonchi or rales are appreciated. Patient takes deep breaths without any discomfort. Abdomen: Soft and nondistended with normal bowel sounds. She does have some mild suprapubic tenderness. Extremities: Bilateral lower extremities are without edema. Skin: Exposed skin is well perfused. Const: Vital Signs, click to edit/add: Vital Signs - 24 hr 05/02/25 09:41 Temperature 98.4 F Pulse Rate [Right Pulse Oximeter] 80 Respiratory Rate 18 Blood Pressure [Ri ght Forearm] 137/85 Pulse Oximetry 97 Oxygen Delivery Me thod Room Air Course Course ED Course: Workup was entirely unremarkable. Urine culture pending-recommend treatment with antibiotics should urine culture come back positive. Vital Signs Vital signs: Initial Vital Signs Temperature 98.4 F 05/02/25 09:41 Temperature Source Temporal Artery Scan 05/02/25 09:41 Pulse Rate 80 05/02/25 09:41 Pulse Rhythm Regular 05/02/25 09:41 Pulse Strength 3+ Normal 05/02/25 09:41 Respiratory Rate 18 05/02/25 09:41 Blood Pressure 137/85 05/02/25 09:41 Blood Pressure Mean 102 05/02/25 09:41 Blood Pressure Position Sitting 05/02/25 09:41 Pulse Oximetry 97 05/02/25 09:41 Oxygen Delivery Method Room Air 05/02/25 09:41 Vital Signs Temperature 98.4 F 05/02/25 09:41 Pulse Rate 80 05/02/25 09:41 Respiratory Rate 18 05/02/25 09:41 Blood Pressure 137/85 05/02/25 09:41 Pulse Oximetry 97 05/02/25 09:41 Oxygen Delivery Method Room Air 05/02/25 09:41 Temperature 98.4 F 05/02/25 09:41 Pulse Rate 80 05/02/25 09:41 Respiratory Rate 18 05/02/25 09:41 Blood Pressure 137/85 05/02/25 09:41 Pulse Oximetry 97 05/02/25 09:41 Oxygen Delivery Method Room Air 05/02/25 09:41 Medications Administered Medications: Discontinued Medications Generic Name Dose Route Start Last Admin Trade Name Freq PRN Reason Stop Dose Admin Ondansetron HCl 4 mg 05/02/25 09:55 05/02/25 10:14 Ondansetron Odt 4 Mg Tab PO 05/02/25 09:56 4 mg ONCE ONE Administration Medical Decision Making MDM Narrative Medical decision making narrative: 35-year-old female with lower abdominal discomfort. We discussed musculoskeletal pain, colonic cramping as other potential causes of discomfort. We discussed the possibility of a UTI within normal UA-urine culture pending. We discussed symptomatic in the meantime and reasons to follow-up. Lab Data Lab results reviewed: Yes I reviewed the patient's lab results Labs: Lab Results 05/02/25 05/02/25 Range/Units 10:00 10:11 WBC 4.29 L (4.50-11.00) K/uL RBC 4.60 (4.00-5.20) m/uL Hgb 14.2 (12.0-16.0) gm/dL Hct 40.6 (33.0-51.0) % MCV 88 (80-100) fL MCH 31 (26-34) pg MCHC 35 (32-36) gm/dL RDW Coeff of Danyel 11.7 (11.5-15.5) % Plt Count 184 (140-440) K/uL Neut % (Auto) 60.4 (42.0-72.0) % Lymph % (Auto) 31.7 (20-44) % Mcduffie % (Auto) 5.1 (0.0-11.0) % Eos % (Auto) 1.9 (0.0-7.0) % Baso % (Auto) 0.7 (0.0-3.0) % Neut # (Auto) 2.60 (1.7-7.0) K/uL Lymph # (Auto) 1.40 (0.90-2.90) K/uL Mcduffie # (Auto) 0.20 (0.00-0.90) K/UL Eos # (Auto) 0.10 (0.00-0.50) K/uL Baso # (Auto) 0.00 (0.00-0.30) K/uL Abs Immat Gran (auto) 0.00 (0.00-0.30) K/uL Imm/Tot Granulo (auto) 0.2 % Sodium 137 (135-149) mmol/L Potassium 3.8 (3.6-5.1) mmol/L Chloride 105 (96-114) mmol/L Carbon Dioxide 27 (20-32) mmol/L Anion Gap 5 L (7-15) mEq/L BUN 7 (5-24) mg/dL Creatinine 0.6 (0.5-1.5) mg/dL Estimated Creat Clear 124.84 Estimated GFR 118 ml/min Glucose 110 (60-115) mg/dL Lactate 1.0 (0.5-1.9) mmol/L Calcium 8.7 (8.4-10.6) mg/dL Total Bilirubin 1.1 (0.1-1.5) mg/dL Direct Bilirubin 0.0 (0.0-0.5) mg/dL AST 27 (12-35) U/L ALT 23 (4-35) U/L Alkaline Phosphatase 76 (40-150) U/L C-Reactive Protein < 0.5 L (0.5-1.0) mg/dL Total Protein 7.7 (6.0-8.3) g/dL Albumin 4.3 (3.3-5.0) g/dL Lipase 32 (23-300) U/L Urine Color Yellow (Yellow) Urine Appearance Clear (Clear) Urine pH 6.0 (5.0-8.5) Ur Specific [place] 1.020 (1.000-1.030) Urine Protein Negative (Negative) Urine Glucose (UA) Negative (Negative) Urine Ketones Negative (Negative) Urine Blood Negative (Negative) Urine Nitrite Negative (Negative) Urine Bilirubin Negative (Negative) Urine Urobilinogen 1.0 (0.2-1.0) Ur Leukocyte Esterase Negative (Negative) Urine RBC 0-2 (0-2) Urine WBC 0-2 (0-5) Ur Squamous Epith Cells Few (None-Few) Urine Bacteria Few A (None) Urine HCG, Qual Negative (Negative) Discharge Plan Discharge Clinical Impression: Abdominal pain Patient Disposition: Home, Self-Care Condition: Stable Additional Instructions: Your workup today did not reveal an obvious source of her discomfort. Would recommend Tylenol or ibuprofen as needed/as directed for discomfort. Recommend heating pad to the lower abdomen as needed- do not use for more than 20 minutes at a time and do not apply heat directly to the skin. If you develop fever or vomiting or your pain worsens to the point where you cannot control it, then you should return to the emergency department. Prescriptions: No Action gabapentin 400 mg tablet 400 mg PO TID Follow Up/Referrals: Provider,Not a Local [Primary Care Provider, Family Practice] Stand Alone Forms: MyHealth Info Instructions
[2025-05-02 10:17] LABS: Hematocrit* 40.6 % (33.0-51.0); Hemoglobin* 14.2 gm/dL (12.0-16.0); Immature Granulocytes Pct Auto 0.2 %; Mean Corpuscular HGB Conc 35 gm/dL (32-36); Mean Corpuscular Hemoglobin 31 pg (26-34); Mean Corpuscular Volume 88 fL (80-100); RDW Coefficient of Variation % 11.7 % (11.5-15.5); Red Blood Count* 4.60 m/uL (4.00-5.20); White Blood Count* 4.29 K/uL (4.50-11.00)
[2025-05-02 10:18] LABS: Immature Granulocytes Abs Auto 0.00 K/uL (0.00-0.30); Lymphocytes Absolute Auto 1.40 K/uL (0.90-2.90); Slide Review Reflex No
--- OUTSIDE RECORDS SUMMARY | 2025-05-02 10:29 | XMS_ITS | Encounter Summary ---
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 Date/Time Encounter Type Encounter Description Reason Pro vider Source IHE Encounter Template Text not used by MD
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
--- OUTSIDE RECORDS SUMMARY | 2025-05-02 10:30 | XMS_ITS | Encounter Summary ---
Author Organization [facility] Address [address] [place] [address] Care Team Providers Care Gang Leader Name Role Phone Valerie Liu APRN, C.N.P. Primary Care Provide r Reason for Visit * Reason Onset Date Comments Health Maintenance 04/26/2025 Encounter Details Date Type Department Care Team (Latest Contact Info) Description 04/26/2025 Clinical Communication Department of Family Medicine, [facility], in [address] [phone] Valerie Liu APRN, C.N.P. [address] [place] [phone] Health Maintenance Social History Tobacco Use Types Packs/Day Years Used Date Smoking Tobacco: Former Cigarettes 1 12 Smokeless Tobacco: Never Alcohol Use Standard Drinks/Week Comments No 0 [...] your partner or ex-partner? Patient declined 03/02/2023 Hunger Vital Sign Answer Date Recorded [...] place to sleep or slept in a snf (including now)? Patient refused 03/02/2023 Depression Answer Date Recor ded PHQ-9 Total Score (max 27) 26 02/09 Education Answer Date Recorded What is the highest level of school you have completed or the highest degree you have received? Associate degree: occupational, technical, or vocational program 11/06/2021 Comments Unknown Sex and Gender Information Value Date Recorded Sex Assigned at Female 11/06/2021 12:30 PM HEADING AND PRIMING TOOL SETTER Legal Sex Female 12:50 PM CDT Gender Identity Female 11/06/2021 12:30 PM HEADING AND PRIMING TOOL SETTER Sexual Orientation Straight 11/06/2021 12 :30 PM HEADING AND PRIMING TOOL SETTER documented as of this encounter Miscellaneous Notes * Telephone Encounter - Isadora Houser - 04/26/2025 1:38 PM CDT I reached out to the patient today via phone call and I was unable to reach the patient. This is the 2nd contact by the [facility] team to schedule preventive care services. The preventive care topics I outreached about include: Cervical Cancer Screening Physical The outcome of this communication includes: Left Message and Sent Text The [facility]HS team will contact the patient again next time they're due for preventive care. Next Primary Care appointment: does not have a visit scheduled in Primary Care Last appointment with their PCP: 09/02/2023 Additional services offered: None Isadora Bonilla Preventative Health Specialist documented in this encounter Plan of Treatment Not on file documented as of this encounter Visit Diagnoses Not on filedocumented in this encounter Additional Health Concerns Assessment Noted Time PHQ-9 Depression Total Score: 26 023 9:11 AM CDT documented as of this encounter Care Teams Gang Leader Relationship Specialty Start Date End Date Valerie Liu APRN, C.N.P. [address] [place] [phone] PCP - General 03/04/24 documented as of this encounter
--- OUTSIDE RECORDS SUMMARY | 2025-05-02 10:30 | XMS_ITS | Encounter Summary ---
Author Organization [facility] Address [address] [place] [address] Care Team Providers Care Aoc Plans Intelligence Officer Name Role Phone Valerie Liu APRN, C.N.P. Primary Care Provide r Reason for Referral * Outpatient (Routine) - Pending Review Specialty Diagnoses / Procedures Referred By Conttavo t Referred To Contact Family Medicine Valerie Liu APRN, C.N.P. [address] [place] [address] Phone: tel: fax: [facility] Referral ID Status Reason Start Date Expiration Date V isits Requested Visits Authorized [id number] Pending Review 03/21/2025 09/20/2026 1 1 Encounter Details Date Type Department Care Team (Late st Contact Info) Description 03/21/2025 Orders Only [facility] MNT Valerie Liu APRN, C.N.P. [address] [place] [address] Social History Tobacco Use Types Packs/Day Years [...] place to sleep or slept in a intermediate (including now)? Patient refused 03/02/2023 Depression Answer Date Recor ded PHQ-9 Total Score (max 27) 26 02/09 Education Answer Date Recorded What is the highest level of school you have completed or the highest degree you have received? Associate degree: occupational, technical, or vocational program 11/06/2021 Comments Unknown Sex and Gender Information Value Date Recorded Sex Assigned at Female 11/06/2021 12:30 PM CASINO CAGE SUPERVISOR Legal Sex Female 12:50 PM CDT Gender Identity Female 11/06/2021 12:30 PM CASINO CAGE SUPERVISOR Sexual Orientation Straight 11/06/2021 12 :30 PM CASINO CAGE SUPERVISOR documented as of this encounter Plan of Treatment Scheduled Referrals Name Type Priority Associated Diagnoses Orde r Schedule Family Medicine office visit (clinic) Outpatient Referral Routine Expected: 04/04/2025, Expires: 09/07/2025 documented as of this encounter Visit Diagnoses Not on filedocumented in this encounter Additional Health Concerns Assessment Noted Time PHQ-9 Depression Total Score: 26 023 9:11 AM CDT documented as of this encounter Care Teams Aoc Plans Intelligence Officer Relationship Specialty Start Date End Date Valerie Liu APRN, C.N.P. [address] [place] [address] PCP - General 03/04/24 documented as of this encounter
--- OUTSIDE RECORDS SUMMARY | 2025-05-02 10:30 | XMS_ITS | Encounter Summary ---
Author Organization [facility] Address [address] [place] [address] Care Team Providers Care Upkeep Mechanic Name Role Phone Valerie Liu APRN, C.N.P. Primary Care Provide r Reason for Visit * Reason Onset Date Comments Health Maintenance 04/19/2025 Encounter Details Date Type Department Care Team (Latest Contact Info) Description 04/19/2025 Clinical Communication Department of Family Medicine, [facility], in [address] [address] Valerie Liu APRN, C.N.P. [address] [place] [address] Health Maintenance Social History Tobacco Use [...] place to sleep or slept in a long-term (including now)? Patient refused 03/02/2023 Depression Answer Date Recor ded PHQ-9 Total Score (max 27) 26 02/09 Education Answer Date Recorded What is the highest level of school you have completed or the highest degree you have received? Associate degree: occupational, technical, or vocational program 11/06/2021 Comments Unknown Sex and Gender Information Value Date Recorded Sex Assigned at Female 11/06/2021 12:30 PM RAIL TRANSPORTATION TABELER Legal Sex Female 12:50 PM CDT Gender Identity Female 11/06/2021 12:30 PM RAIL TRANSPORTATION TABELER Sexual Orientation Straight 11/06/2021 12 :30 PM RAIL TRANSPORTATION TABELER documented as of this encounter Miscellaneous Notes * Telephone Encounter - Isadora Houser - 04/19/2025 3:27 PM CDT I reached out to the patient today via phone call and I was unable to reach the patient. This is the 1st contact by the [facility] team to schedule preventive care services. The preventive care topics I outreached about include: Cervical Cancer Screening Physical The outcome of this communication includes: Left Message and Sent Portal Message The [facility] team will contact the patient again in 1 week. Next Primary Care appointment: does not have [...] documented as of this encounter Care Teams Upkeep Mechanic Relationship Specialty Start Date End Date Valerie Liu APRN, C.N.P. [address] [place] [address] PCP - General 03/04/24 documented as of this encounter
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
--- OUTSIDE RECORDS SUMMARY | 2025-05-02 10:32 | XMS_ITS | Encounter Summary ---
Author Name [facility] Organization [facility] [place] Address [address] [place] [address] Care Team Providers Care Financial Accountant Name Role Phone CINDY ZAMORANO Primary Care Provider Unavail able Selected Encounter This section includes the information on record at [place] for the Encounter. Date/Time Encounter Type Encounter Description Reason Pro vider Source IHE Encounter Template Text not used by [place]
[2025-05-02 10:33] LABS: Albumin* 4.3 g/dL (3.3-5.0); Chloride* 105 mmol/L (96-114); Sodium* 137 mmol/L (135-149)
--- OUTSIDE RECORDS SUMMARY | 2025-05-02 10:33 | XMS_ITS | Encounter Summary ---
Author Name [facility] [place] Organization [facility] [place] Address [address] [place] [address] Care Team Providers Care Survey Crew Chief Name Role Phone CINDY ZAMORANO Primary Care Provider Unavail able Selected Encounter This section includes the information on record at [place] for the Encounter. Date/Time Encounter Type Encounter Description Reason Pro vider Source IHE Encounter Template Text not used by [place]
[2025-05-02 10:34] LABS: Potassium* 3.8 mmol/L (3.6-5.1)
--- OUTSIDE RECORDS SUMMARY | 2025-05-02 10:35 | XMS_ITS | Clinical Summary ---
Author Organization [facility] Address [address] [place] [address] Care Team Providers Care Cfd Engineer Name Role Phone None, Pcp Primary Care [...] Vaccine ( season) 2024 Influenza Vaccine (#1) 2025 , 11/03/2019, 06/28/2011, Additional history exists DTaP,Tdap,and Td Vaccines (4 - Td or Tdap) 06/15/2030 06/15/2020, 04/22/2013, 05/04/2009 HPV Vaccines Aged Out No longer eligi ble based on patient's age to complete this topic Pneumococcal Vaccine: Pediatrics (0 to 5 Years) and At-Risk Patients (6 to 49 Years) Aged Out No longer eligible based on patient's age to complete this topic Insurance [facility] [employer] Care Teams Cfd Engineer Relationship Specialty Start Date End Date None, Pcp [address] [place], [place] [address] [place] [address] PCP - General Fly Raiser Lockstitch 07/20/24
--- OUTSIDE RECORDS SUMMARY | 2025-05-02 10:35 | XMS_ITS | Clinical Summary ---
Author Organization [facility] Address [address] [place] [address] Care Team Providers Care Outpatient Services Director Name Role Phone None Primary Care Provider [...] Noted Date Diagnosed Date Vaginal delivery 09/01/2020 Social History Tobacco Use Types Packs/Day Years Used Date Smoking Tobacco: Former Smokeless Tobacco: Former Alcohol Use Standard Drinks/Week Comments Not Currently 0 (1 standard drink = 0.6 oz pur e alcohol) Comments No Sex and Gender Information Value Date Recorded Sex Assigned at Not on file Legal Sex Female 8:20 PM PERIODICALS CLERK Gender Identity Not on file Sexual Orientation [...] 9 SORENS EN,BB FIFI Pearson Complications:None [facility]) Last Filed Vital Signs Vital Sign Reading Time Taken Comments Blood Pressure 130/82 09/03/2020 7:00 AM PERIODICALS CLERK Pulse 88 09/03/2020 7:00 AM PERIODICALS CLERK Temperature 36.8 C (98.2 F) 09/03/2020 7:00 AM PERIODICALS CLERK Respiratory Rate 18 09/03/2020 7:00 AM PERIODICALS CLERK Oxygen Saturation 96% 09/01/2020 3:49 AM PERIODICALS CLERK Inhaled Oxygen Concentration - - Weight 121.6 kg (268 lb) 08/31/2020 10:13 PM PERIODICALS CLERK Height 172.7 cm (5' 8) 08/31/2020 10:13 PM PERIODICALS CLERK Body Mass Index 40.75 08/31/2020 10:13 PM PERIODICALS CLERK Plan of Treatment Upcoming Encounters Date Type Department Care Team (Late st Contact Info) Description 05/22/2025 12:30 PM CDT Office Visit [facility]hendra [facility] [address] [facility] [address] [place] [address] Bree Hassan, PhD, LP [address] [place] [facility] [address] [place] [address] Health Maintenance Due Date Last Done Comments Tetanus booster 1999 Depression screening for age 12+ 2000 HIV for age 15-65 2003 BMI (ht and wt on same day) for age 18+ 2006 Hepatitis C screening for ag e 18-79 2006 Hepatitis B series for 19+ ( 1 of 3 - 19+ 3-dose series) 2007 Pap test for age 21-65 2009 COVID-19 vaccine series (2023- season) 2024 Influenza Vaccine (#1) 2025 Pneumococcal series for age 6-49 Aged Out No longer eligible based on patient's age to complete this topic Insurance MEDICAID [facility] [employer] Advance Directives * Full Code (Latest Code Status on File) Date Activated Date Inactivated Comments 08/31/2020 9:53 PM 09/03/2020 3:09 PM Question Answer Comments Code Status Discussion: Discussed Care Teams Outpatient Services Director Relationship Specialty Start Date End Date None . PCP - General 12/05/24
--- OUTSIDE RECORDS SUMMARY | 2025-05-02 10:35 | XMS_ITS | Encounter Summary ---
Author Name [facility] [facility] [place] [facility] [place] Address [address] [place] [address] Care Team Providers Care Choke Reamer Name Role Phone CINDY ZAMORANO Primary Care Provider Unavail able Selected Encounter This section includes the information on record at [place] for the Encounter. Date/Time Encounter Type Encounter Description Reason Pro vider Source IHE Encounter Template Text not used by [place]
[2025-05-02 10:36] LABS: Blood Urea Nitrogen* 7 mg/dL (5-24); Creatinine* 0.6 mg/dL (0.5-1.5); Est. Creatinine Clearance* 124.84; Estimated Glomerular Filt Rate 118 ml/min
[2025-05-02 10:37] LABS: Alanine Aminotransferase* 23 U/L (4-35); Alkaline Phosphatase* 76 U/L (40-150); Anion Gap 5 mEq/L (7-15); Aspartate Amino Transferase* 27 U/L (12-35); Bilirubin Direct* 0.0 mg/dL (0.0-0.5); Bilirubin Total* 1.1 mg/dL (0.1-1.5); Calcium* 8.7 mg/dL (8.4-10.6); Carbon Dioxide* 27 mmol/L (20-32); Glucose* 110 mg/dL (60-115); Total Protein* 7.7 g/dL (6.0-8.3)
== END 2025-05-02 11:20 | disposition home or self-care (01) ==
PROVIDERS: Emergency Provider Family Medicine
DX: R10.30 Lower abdominal pain, unspecified (principal)
CPT/HCPCS: 36415; 80048; 80076; 81001; 81025; 83605; 83690; 85025; 86140; 87086; 99283; 99284; A9270

== ENCOUNTER 2025-10-10 09:05 | Emergency (ER) | payer OTHER, SELFPAY ==
--- OUTSIDE RECORDS SUMMARY | 2025-10-10 09:11 | XMS_ITS | Clinical Summary ---
Author Organization [facility] Address [address] [place] [address] Care Team Providers Care Ship Mate Name Role Phone None Primary Care Provider Unavailabl e Allergies No known active allergies Medications MedicationSigDispense QuantityRefillsLast FilledStart DateEnd DateStatus sertraline (ZOLOFT) 100 mg tablet Indications:anxiety with depressionTake 200 mg by mouth once daily. Indications: anxiousness associated with depressionActive hydrOXYzine HCL (ATARAX) 50 mg tablet Indications:anxietyTake 50 mg by mouth once daily. Indications: anxiousActive famotidine (PEPCID) 20 mg tablet Take 20 mg by mouth 2 times daily.Active acetaminophen (TYLENOL EXTRA STRGTH) 500 mg tablet Indications:Vaginal delivery (HC)Take 2 tablets by mouth every 6 hours. Max acetaminophen dose: 4000mg in 24 hrs. 60 tablet Active glycerin-witch Pablito (TUCKS) pad Apply 1 Applicator topically to affected area(s) every hour while awake as needed. Active ibuprofen (ADVIL; MOTRIN) 600 mg tablet Indications:Vaginal delivery (HC)Take 1 tablet by mouth every 6 hours. Maximum of 3200 mg in 24 hours. 30 tablet Active lanolin (LANSINOH) topical Indications:Vaginal delivery (HC)Apply peasized amount to entire nipple area after each feeding and leave on, no need to wash off before . Active oxyCODONE (ROXICODONE) 5 mg immediate release tablet Indications:Vaginal delivery (HC)Take 1 tablet by mouth every 4 hours if needed for Pain (For moderate to severe pain not controlledwith ibuprofen and acetaminophen.) 10 tablet 09/03/2020Active docusate (COLACE) 100 mg capsule Indications:Vaginal delivery (HC)Take 1 capsule by mouth 2 times daily if needed for Constipation. 30 capsule 09/03/2020Active Active Problems ProblemNoted DateDiagnosed DateVaginal pyrimwps05/14/2020 Social History Tobacco UseTypesPacks/DayYears UsedDateSmoking Tobacco: FormerSmokeless Tobacco: FormerAlcohol UseStandard Drinks/WeekCommentsNot Currently0 (1 standard drink = 0.6 oz pure alcohol)CommentsNoSex and Gender InformationValueDate RecordedSex Assigned at BirthNot on fileLegal GbzDarhgd88/13/2020 8:20 PM VP ACCOUNT DIRECTOR Gender IdentityNot on fileSexual OrientationNot on file Obstetrics History GravidaParaTermPretermABIABSABEctopicMultipleLivingLive [id number] GATotal LaborLabor/2nd/0exKksecnJvsZyvgOounFIQIziR3W8YjhwYifuEGUYSRDYK96/19/2014 JjanTukwdl14/24/6582VasoJkyezw34/15/6358PokmYpjpct05/14/1290Eeaq80o7n7v 07m3.9 kg (8 lb 9.6 oz)MVagEpidural,IV VydnPFmnlvi62GKDUHYOV,BB ALEXIADrAleksandra Pearson Complications:NoneDel[facility]) Last Filed Vital Signs Vital SignReadingTime TakenCommentsBlood Jmpxdodw674/8209/03/2020 7:00 AM VP ACCOUNT DIRECTOR Ssxgh566109/03/2020 7:00 AM WUIOgnsenychbd41.8 ??C (98.2 ??F)09/03/2020 7:00 AM CSTRespiratory Wcpg859911/03/2019 7:00 AM CSTOxygen Xickjxwogd29%09/01/2020 3:49 AM CSTInhaled Oxygen Concentration--Txawer502.6 kg (268 lb)08/31/2020 10:13 PM KHUYfciyl567.7 cm (5' 8)08/31/2020 10:13 PM CSTBody Mass Index40.7508/31/2020 10:13 PM VP ACCOUNT DIRECTOR Plan of Treatment Health MaintenanceDue DateLast DoneCommentsTetanus sbbwdrb1604/21/1999Depression screening for age 12+2000HIV for age 15-65004/21/2003BMI (ht and wt on same day) for age 18+2006Hepatitis C screening for age 18-7904/21/2006Hepatitis B series for 19+ (1 of 3 - 19+ 3-dose series)2007Pap test for age 21-65 2009HPV series for age 9-45 (1 - 3-dose SCDM series)2015COVID-19 vaccine series ( - 2024- season)2025Influenza Vaccine (#1)2025 Pneumococcal series for age 6-49Aged OutNo longer eligible based on patient's age to complete this topic Insurance * Guarantor: Sameer Arreola TypeRelation to PatientDate of BirthPhone Billing AddressPersonal/PwvezpWwqo1990 [address] [address] [address] * Guarantor: Sameer Arreola TypeRelation to PatientDate of BirthPhone Billing AddressMotor BtpvpuhPvnx1990 [address] [address] [address] Advance Directives * Full Code (Latest Code Status on File) Date ActivatedDate HnthgntztswBhyeebcc79/13/2020 9:53 PM09/03/2020 3:09 PM QuestionAnswerCommentsCode Status Discussion:* Discussed Care Teams Team MemberRelationshipSpecialtyStart DateEnd Date None . PCP - General12/05/24
--- OUTSIDE RECORDS SUMMARY | 2025-10-10 09:11 | XMS_ITS | Clinical Summary ---
Author Organization [facility] Address [address] [place] [address] Care Team Providers Care Thermal Spray Operator Name Role Phone None Reported, Pcp Primary Care Provider Unavail able Source Comments Patient records contain information from all sites at [facility]. For routine questions regarding patient records, call [phone] during business hours, M-F 8:00 AM - 5:00 PM Central Time. Record requests for emergency care only can be directed to [phone] at any time.[facility] Allergies Active AllergyReactionsCriticalityNoted DateCommentsMetoclopramideOther (see comments)09/10/2022 Metoclopramide-Induced Acute Dystonic Reaction Metoclopramide FogNiiccut14/29/2023MetoprololHypotension (Reselect Reaction) 01/14/2023enicillinsOther (see comments)03/30/2009 Unknown reaction no longer allergic per patient after recent ER visit Medications * This document contains information received from the source organization and may not represent a complete record from that organization. MedicationSigDispense QuantityRefillsLast FilledStart DateEnd DateStatus alcohol swabs pads, medicated Indications:Diabetes Mellitus Gestational (HCC)Use as needed for diabetes control 1500 each ctive blood-glucose meter mis Indications:Diabetes Mellitus Gestational (HCC)Test as directed for diabetes control. 1 each 01/12/2023ctive blood glucose ctl high,nml,low solution Indications:Diabetes Mellitus Gestational (HCC)Glucose control solution provides an easy way to ensure accurate blood glucose testing. 1 each 01/12/2023ctive Accu-Chek Guide L1-L2 Ctrl Kay solution 01/12/2023ctive blood sugar diagnostic strips Indications:Diabetes Mellitus Gestational (HCC),Other Hypoglycemia1 test 3 (three) times a day as needed (DM2 with reactive hypoglycemia). 300 strip ctive LORazepam (ATIVAN) 0.5 mg tablet Indications:Bipolar II Disorder (HCC),Posttraumatic Stress Disorder Prolonged Take 1 tablet (0.5 mg total) by mouth 2 (two) times a day as needed for anxiety. 60 tablet 08/13/2023ctive ondansetron ODT (ZOFRAN-ODT) 4 mg disintegrating tablet Indications:Injury Brain Traumatic Personal HistoryDissolve 1 tablet (4 mg total) in the mouth every 8 (eight) hours as needed for nausea or vomiting. 30 tablet ctive baclofen (LIORESAL) 10 mg tablet Indications:MyalgiaTake 0.5-1 tablets (5-10 mg total) by mouth 3 (three) times a day. 40 tablet 12/09/2023ctive amphetamine-dextroamphetamine (ADDERALL XR) 30 mg 24 hr capsule Indications:Attention Deficit Disorder InattentiveTake 1 capsule (30 mg total) by mouth 2 (two) times a day. 60 capsule 12/15/2023 4:21 PM CST12/14/2023ctive lamoTRIgine (LaMICtaL) 200 mg tablet Indications:Bipolar II Disorder (HCC),Posttraumatic Stress Disorder Prolonged take one tablet by mouth every day 30 tablet ctive sertraline (ZOLOFT) 50 mg tablet Indications:Bipolar II Disorder (HCC)take one tablet by mouth every day 90 tablet ctive amoxicillin (AMOXIL) 500 mg capsule Take 1 capsule (500 mg total) by mouth every 8 (eight) hours. 30 capsule 04/03/2024ctive ondansetron ODT (Zofran-ODT) 4 mg disintegrating tablet Dissolve 1 tablet (4 mg total) in the mouth every 12 (twelve) hours. 10 tablet 08/21/2024ctive Active Problems ProblemNoted DateDiagnosed DateSleep Apnea Tvkjopfbngm65/03/2024ancytopenia 08/21/2024Myopia Wiyphugan97/03/5048Mxgegjhtz94/03/2024Headache Unspecified 08/21/2024Glare Zkrbgnyeedm82/03/2024Generalized Enlarged Lymph Nodes08/21/2024 Dysfunction Eustachian Tube Faqvhigtx99/03/2024hronic Fatigue Syndrome 08/21/2024Splenomegaly Not Elsewhere Iidxoktilh17/03/2024Unspecified Temporomandibular Joint Dfqxberm83/03/2024Viral Urcigoezz32/03/2024Injury Brain Traumatic Personal Gbamcpe69/15/2023Attention Deficit Disorder Inattentive 2Diabetes Mellitus Gestational Ycqpvismr33/29/2020 Overview (07/17/2020): No 3 hour glucose, is willing to monitor Rx sent for meter, test strips Acne Kmembceh43/19/7876Srzqknmo31/08/2019Borderline Personality Disorder 07/22/2017 Overview (01/31/2020): Following with Dr Watts; weaning Effexor and Lamictal Starting Sertraline: Follow closely Posttraumatic Stress Disorder Tihkztgxd99/25/2017 Assessment & Plan (03/12/2022 3:58 PM CDT): From the patient's description she was placed on metoprolol to help with the symptoms related to PTSD. It appears that she has experienced adverse effects from higher dose beta-raúl therapy. Recommended to decrease metoprolol XL 50 mg to 1 tablet once daily. Bipolar II Jzsbwrhz69/23/2017 Assessment & Plan (03/12/2022 3:56 PM CDT): This diagnosis was made many years ago while she was living in [place] apparently, I do not get the sense [...] adjustments should be considered. Pain Left Upper Eznwvkni74/05/2013Pain Low Back Unspecified Resolved Problems ProblemNoted DateDiagnosed DateResolved DateLoss Kzrxia18 Kmzwfa84 Overview (04/07/2022): Added automatically from request for surgery [id number] Obesity Body Mass Index 30-39.9 Adult/6509Mlyhsskd81/13/2021 01/12/2023 Overview (05/31/2021): Added automatically from request for surgery [id number] Encounter For Supervision Of Normal First Unspecified Trimester /06/2021Other Immediate Xdiiqonfdq67/14/ Otivxwtcfdrr91/16/Bite Cat Hand Open Initial Left03/01/2019 06/06/2019Abnormal Weight Gain1Depression Major Recurrent Cgfxey54 Overview (08/22/2017): Depression Major Recurrent Severe Nicotine Dependence Cigarettes In Qdunjjwqv63 Encounters * This document contains information received from the source organization and may not represent a complete record from that organization. DateTypeDepartmentCare XqbmBfmuwtwwkgp23/02/2025Orders Only [facility] MNT Valerie Liu APRN, C.N.P. from Last 3 Months Immunizations ImmunizationAdministration DatesNext BfsWkdisvn97/18/0756C1X6 Nasal12/20/2009 HepA Adult09/23/2009,03/27/2009IPV05/04/2009Influenza Split06/29/2010,09/23/2009 MMR03/27/20091876Qhyvydzn32/23/8284Fixh84/28/2020,04/22/2013,05/04/2009TyVi (inj) 05/05/2013Typhoid, Jzzshfdpsva49/17/2009influenza trivalent vaccine (6 months and older)(PF)06/28/2011influenza vaccine quad (FLUZONE/FLUARIX) (6 months and older)(PF)08/07/2020,11/03/2019 Family History Medical HistoryRelationNameCommentsBipolar disorderFatherDadDepressionFatherDad Post-traumatic stress disorder (PTSD)FatherDadDrug abuseMotherADD / ADHDSister Bio sisterCrohn's diseaseSisterBio sisterAnesthesia problemsNeg HxRelationName StatusCommentsFatherDadMotherSisterBio sister Social History Tobacco UseTypesPacks/DayYears UsedDateSmoking Tobacco: GrmdojJphoslgnxu038 Smokeless Tobacco: Never Tobacco Cessation:Counseling Given: Not Answered Alcohol UseStandard Drinks/WeekCommentsNo0 (1 standard drink = 0.6 oz pure alcohol)Humiliation, Afraid, Rape, and Kick questionnaireAnswerDate Recorded Within the last year, have you been afraid of your partner or ex-partner?No 03/02/2023Within the last year, have you been humiliated or emotionally abused in other ways by your partner or ex-partner?Patient ocmdzrgg90/15/2023Within the last year, have you been kicked, hit, slapped, or otherwise physically hurt by your partner or ex-partner?Patient ozvtychq82/15/2023Within the last year, have you been raped or forced to have any kind of sexual activity by your partner or ex-partner?Patient xtammkpy06/15/2023Hunger Vital SignAnswerDate RecordedWithin the past 12 months, you worried that your food would run out before you got the money to buymore.Patient /15/2023Within the past 12 months, the food you bought just didn't last and you didn't have money to get more.Patient ygbmlahs47/15/2023RAPARE - TransportationAnswerDate RecordedIn the past 12 months, has lack of transportation kept you from medical appointments or from getting medications?Patient nzylkbvw76/15/2023In the past 12 months, has lack of transportation kept you from meetings, work, or from getting things needed for daily living?Patient uqlurtji94/15/2023Housing Stability Vital SignAnswerDate RecordedIn the last 12 months, was there a time when you were not able to pay the mortgage or rent on time?Patient ujbpsgr3403/02/2023In the last 12 months, how many places have you lived?In the last 12 months, was there a time when you did not have a steady place to sleep or slept in [facility] (including now)?Patient lpztxjo29/15/2023Postpartum DepressionAnswerDate RecordedPHQ-9 Total Score (max 27)EducationAnswerDate RecordedWhat is the highest level of school you have completed or the highest degree you have received? Associate degree: occupational, technical, or vocational pumzkwv1711/06/2021 CommentsUnknownSex and Gender InformationValueDate RecordedSex Assigned at BclarHbsmoo48/19/2022 12:30 PM CSTLegal WzdXmwlrb36/23/2017 12:50 PM CDT Gender QzcuispvUllqql60/19/2022 12:30 PM CSTSexual QavqeeoxydeIjpdrytn24/19/2022 12:30 PM RODENT EXTERMINATOR Last Filed Vital Signs Vital SignReadingTime TakenCommentsBlood Jgpagxot653/8411 9:01 AM RODENT EXTERMINATOR Zoias2106 9:01 AM AMYGjrjlykksea07.4 ??C (97.5 ??F)08/21/2024 9:01 AM CSTRespiratory Uhjs460310/21/2023 9:01 AM CSTOxygen Lrcaqljwbf75%08/21/2024 9:01 AM CSTInhaled Oxygen Concentration--Wbfuvj51 kg (211 lb 10.3 oz)08/21/2024 9:02 AM LABQfejos887.7 cm (5' 8)04/03/2024 2:27 AM CDTBody Mass Index32.18004/03/2024 2:27 AM CDT Plan of Treatment Health MaintenanceDue DateLast DoneCommentsHepatitis B Vaccines (1 of 3 - 19+ 3- dose series)2007Pneumococcal vaccine (0-49 years) (1 of 2 - PCV)2007 IPV Vaccines (2 of 3 - Adult catch-up series)HPV Vaccines (1 - 3-dose SCDM series)2015Glucose Monitoring for Gestational Diabetes 4Cervical/Vaginal Cancer Juesjouil00/11/2018, 04/19/2019 Depression Screening (Annual PHQ-2)5COVID-19 Vaccine (1 - 2024- season)2025Influenza Vaccine (#1)51, 11/03/2019, 06/28/2011, Additional history existsLipid (Cholesterol) Zenwbzdno66/25/2027 2DTaP,Tdap,and Td Vaccines (4 - Td or Tdap), 04/22/2013, 05/04/2009Hepatitis A GiylkkrpPljjubqsg23/06/2009, 03/27/2009 Orthopoxvirus SddxjttDkpedvkvo68/23/2013HIV DrhjhrfuxXeuozxjbh50/14/2020 Hepatitis C CzcoygqqhDohuuafej57/09/2021 Procedures Procedure NamePriorityDate/TimeAssociated DiagnosisCommentsCHOLESTEROL, TOTAL, S Gktwpzv1603/12/2022 3:59 PM CDT Family History Coronary Artery Disease HCV AB SCRN W/REFLEX TO HCV PCR, SVwwmqoe65/09/2021 10:16 AM CDT Pain Periumbilical Diarrhea HIV-1/-2 AG AND AB SCRN, JNVGSTLcxafjr81/14/2020 3:48 PM CDT Encounter For Supervision Of Normal Unspecified Trimester PATHOLOGY AUTOMOBILE SALESMAN IZTDGFWUPrhbrvh39/02/2019 12:00 AM CDT Pap Smear Examination from Last 3 Months or Most Recently Relevant to Health Maintenance Results * Cholesterol, Total (03/12/2022 3:59 PM CDT)ComponentValueRef RangeTest Method Analysis TimePerformed AtPathologist SignatureCholesterol, Nrotr522gp/dL 03/12/2022 4:24 PM CDTRDWGComment: ----REFERENCE VALUE---- Desirable: < 200 Borderline high: 200 - 239 High: > or = 240 Specimen (Source)Anatomical Location / LateralityCollection Method / Volume Collection TimeReceived TimeBlood (Blood, Venous)03/12/2022 3:59 PM CDT 03/12/2022 4:03 PM CDT Narrative Authorizing ProviderResult TypeResult StatusFranky Carbone M.D.LAB BLOOD ADD-ON Final ResultPerforming OrganizationAddressCity/State/ZIP CodePhone Number [facility] [place] 2[place] [facility] [address] [place] [address], [facility] [place] in [place] [address] [address] * HCV Ab Scrn w/Reflex to HCV PCR, Serum (05/27/2021 10:16 AM CDT)ComponentValue Ref RangeTest MethodAnalysis TimePerformed AtPathologist SignatureHCV Ab Screen, GDabarotaRelkzsnw04/09/2021 3:18 PM CDTECLRComment: Biotin has been identified by the conditioning room worker as a potential interfering substance. ??Higher concentrations of biotin may be found in multivitamins, hair/nail supplements, and workout supplements. ??If the result does not match clinical observations, repeat testing after patient refrains from the use of supplements for at least 12 hours. Specimen (Source)Anatomical Location / LateralityCollection Method / Volume Collection TimeReceived TimeBlood (Blood, Venous)05/27/2021 10:16 AM CDT 05/27/2021 2:38 PM CDT Narrative [facility] - 05/27/2021 3:18 PM CDT Specimen Information: Specimen ID: [id number] Specimen Type: Blood Specimen Collection Start Date: 05/27/2021 10:16 AM Specimen Received Date: 05/27/2021 ??2:38 PM Specimen ID: [id number] Specimen Type: Blood Specimen Collection Start Date: 05/27/2021 10:16 AM Specimen Received Date: 05/27/2021 ??2:38 PM Authorizing ProviderResult TypeResult StatusTrey Poe M.D., Ph.D.LAB MICROBIOLOGY - BLOOD ORDERABLESFinal ResultPerforming OrganizationAddress City/State/ZIP CodePhone Number [facility] [address] [place] [address], [facility] ECL[address] [address] * HIV-1/-2 Ag and Ab Scrn, Plasma (01/31/2020 3:48 PM CDT)Component ValueRef RangeTest MethodAnalysis TimePerformed AtPathologist SignatureHIV Ag/Ab Scrn, PYyjnflwhJrdoucxs47/15/2020 12:25 PM CDTECLRComment: Negative result does not rule out HIV infection. If exposure to HIV infection occurred <14 days ago, contact the laboratory to request addition of HIV-1 RNA detection / quantification test. HIV-1 p24 Ag Scrn, CFmfuugxcUeqijcnz44/15/2020 12:25 PM CDTECLRComment: Negative result does not rule out HIV infection. If exposure to HIV infection occurred <14 days ago, contact the laboratory to request addition of HIV-1 RNA detection / quantification test. HIV-1 Ab Scrn, CUvqnaqacEdxvzscs97/15/2020 12:25 PM CDTECLRComment: Negative result does not rule out HIV infection. If exposure to HIV infection occurred <14 days ago, contact the laboratory to request addition of HIV-1 RNA detection / quantification test. HIV-2 Ab Scrn, CUevweqnrWpmrdhbf66/15/2020 12:25 PM CDTECLRComment: Negative result does not rule out HIV infection. If exposure to HIV infection occurred <14 days ago, contact the laboratory to request addition of HIV-1 RNA detection / quantification test. Specimen (Source)Anatomical Location / LateralityCollection Method / Volume Collection TimeReceived TimeBlood (Blood, Venous)01/31/2020 3:48 PM CDT 01/31/2020 9:32 PM CDT Narrative Authorizing ProviderResult TypeResult StatusLucy Crooks APRN, C.N.P., A.P.N.P. LAB MICROBIOLOGY - BLOOD ORDERABLESFinal ResultPerforming OrganizationAddress City/State/ZIP CodePhone Number [facility] [address] [place] [phone], [place] ECLR in [address] [address] * Pathology AUTOMOBILE SALESMAN Cytology (04/19/2019 12:00 AM CDT)ComponentValueRef RangeTest MethodAnalysis TimePerformed AtPathologist SignaturePATHOLOGY AUTOMOBILE SALESMAN CYTOLOGY Patient Name: FIFI PADILLA MR#: [id number] Submitting Physician: ISABELLE MENCHACA OPEN HEARTH FURNACE LABORER ??[id number] Specimen #[id number] Performing Lab: ??[facility] ? [address] [address] CLINICAL HISTORY: Last menstrual period: Status: Pap Type: Routine Pap Clinical History/Status (Select all that apply): None Ancillary Testing: HPV with Genotyping, PCR, ThinPrep (order separately in [facility] [id number]) Source: ThinPrep cervical/endocervical specimen [ThinPrep vial] Diagnosis Specimen Adequacy: Satisfactory for interpretation : endocervical or transformation zone component present. General Categorization: Negative for intraepithelial lesion or malignancy. ?? Comment HPV with Genotyping, PCR, ThinPrep, testing performed by [facility] HPV High Risk type 16, PCR ? NEGATIVE HPV High Risk type 18, PCR ? NEGATIVE HPV other High Risk types, PCR ? NEGATIVE The PAP smear is not a diagnostic procedure and should not be used as the sole means to detect cervical cancer. ??It is only a screening procedure to aid in the detection of cervical cancer and its precursors. ??Both false-negative and false-positive results have been experienced. [facility]ENTERpecimen (Source)Anatomical Location / LateralityCollection Method / VolumeCollection TimeReceived TimeThin Prep Vial (Cervix/Endocervix) Narrative Authorizing ProviderResult TypeResult StatusIsabelle Menchaca APRN, C.N.P., [facility] PAP COPATH ORDERABLESFinal ResultPerforming OrganizationAddress City/State/ZIP CodePhone Number [facility] [address] [place] [address], [facility] from Last 3 Months or Most Recently Relevant to Health Maintenance Insurance * Guarantor: Fifi PadillaAccount TypeRelation to PatientDate of PhoneBilling AddressThird Libertarian XyagrcangAtiq1990 [address] [place] [address] Advance Directives For more information, please contact: [phone] * Full Code (Latest Code Status on File) Date ActivatedDate InactivatedComments04/10/2022 1:43 PM04/10/2022 7:24 PMQuestion AnswerCommentsFull Code:* Discussed * Full Code Date ActivatedDate InactivatedComments07/03/2021 1:53 PM07/03/2021 4:52 PMQuestion AnswerCommentsFull Code:* Discussed * Full Code Date ActivatedDate InactivatedComments07/03/2021 12:26 PM07/03/2021 1:53 PM QuestionAnswerCommentsFull Code:* Discussed * Full Code Date ActivatedDate InactivatedComments11/04/2019 4:16 PM11/05/2019 2:09 PMQuestion AnswerCommentsFull Code:* Discussed * Full Code Date ActivatedDate InactivatedComments11/03/2019 11:09 PM11/04/2019 4:16 PM QuestionAnswerCommentsFull Code:* Discussed Care Teams Team MemberRelationshipSpecialtyStart DateEnd Date None Reported, [facility] Hmeaitey84/11/25
--- OUTSIDE RECORDS SUMMARY | 2025-10-10 09:11 | XMS_ITS | Clinical Summary ---
Author Organization [facility] er Address [address] [place] [address] Care Team Providers Care High School Foreign Language Tutor Name Role Phone None, Pcp Primary Care Provider Unavailabl e Allergies Active AllergyReactionsCriticalityNoted WvpuDvbswteiKgmbyfvuxtwuhu27/14/2024 Ahsdypdhlh77/14/2024 Medications MedicationSigDispense QuantityRefillsLast FilledStart DateEnd DateStatus ibuprofen (ADVIL) 600 MG tablet Take 1 tablet (600 mg total) by mouth every 6 hours as neededActive Social History Tobacco UseTypesPacks/DayYears UsedDateSmoking Tobacco: Never Assessed CommentsUnknownSex and Gender InformationValueDate RecordedSex Assigned at Not on fileLegal JggFyakno80/12/2024 9:18 AM CDTGender IdentityNot on fileSexual OrientationNot on file Last Filed Vital Signs Vital SignReadingTime TakenCommentsBlood Jxrygahu072/7008/01/2024 12:48 PM CDT Yfwqf441508/01/2024 12:48 PM LVAOvqtmtkggth65.9 ??C (98.5 ??F)08/01/2024 12:48 PM CDTRespiratory Rate--Oxygen Saturation--Inhaled Oxygen Concentration--Reobqt62.1 kg (200 lb 14.4 oz)08/01/2024 12:48 PM CDTHeight--Body Mass Index-- Plan of Treatment Health MaintenanceDue DateLast DoneCommentsPap Smear, 04/19/2019COVID-19 Vaccine ( season)2025Influenza Vaccine (#1) , 11/03/2019, 06/28/2011, Additional history exists DTaP,Tdap,and Td Vaccines (4 - Td or Tdap), 04/22/2013, 05/04/2009HPV VaccinesAged OutNo longer eligible based on patient's age to complete this topicPneumococcal Vaccine: Pediatrics (0 to 5 Years) and At-Risk Patients (6 to 49 Years)Aged OutNo longer eligible based on patient's age to complete this topic Insurance Care Teams Team MemberRelationshipSpecialtyStart DateEnd Date None, Pcp [address] [place] [phone] PCP - GeneralGeneral Kncalpip02/2/24
--- OUTSIDE RECORDS SUMMARY | 2025-10-10 09:11 | XMS_ITS | Encounter Summary ---
Author Organization [facility] Address [address] [place] [address] Care Team Providers Care Preschool Aide Name Role Phone Valerie Liu APRN, C.N.P. Primary Care Provide r Reason for Referral * Outpatient (Routine) - Pending ReviewSpecialtyDiagnoses / ProceduresReferred By ContactReferred To ContactFamily Medicine Valerie Liu APRN, C.N.P. [address] [place] [address] Phone: tel: fax: [facility] Region Referral IDStatusReasonStart DateExpiration DateVisits RequestedVisits [id number] Ujjmtv69/ E POLISHER Encounter Details DateTypeDepartmentCare Team (Latest Contact Info)Itmamgjfwdz83/02/2025Orders Only [facility] MNT Valerie Liu APRN, C.N.P. [address] [place] [address] Social History Tobacco UseTypesPacks/DayYears UsedDateSmoking Tobacco: PgkpwtPdwltsznao767 Smokeless Tobacco: NeverAlcohol UseStandard Drinks/WeekCommentsNo0 (1 standard drink = 0.6 oz pure alcohol)Humiliation, Afraid, Rape, and Kick questionnaire AnswerDate RecordedWithin the last year, have you been afraid of your partner or ex-partner?No03/02/2023Within the last year, have you been humiliated or emotionally abused in other ways by your partner or ex-partner?Patient declined 03/02/2023Within the last year, have you been kicked, hit, slapped, or otherwise physically hurt by your partner or ex-partner?Patient zwfqvcyu99/15/2023Within the last year, have you been raped or forced to have any kind of sexual activity by your partner or ex-partner?Patient ltducrse48/15/2023Hunger Vital SignAnswer Date RecordedWithin the past 12 months, you worried that your food would run out before you got the money to buymore.Patient dwzfsups44/15/2023Within the past 12 months, the food you bought just didn't last and you didn't have money to get more.Patient rdesfnff51/15/2023RAPARE - TransportationAnswerDate RecordedIn the past 12 months, has lack of transportation kept you from medical appointments or from getting medications?Patient iovhtteh39/15/2023In the past 12 months, has lack of transportation kept you from meetings, work, or from getting things needed for daily living?Patient ysyvwfsx27/15/2023Housing Stability Vital Sign AnswerDate RecordedIn the last 12 months, was there a time when you were not able to pay the mortgage or rent on time?Patient lxgzrly1303/02/2023In the last 12 months, how many places have you lived?In the last 12 months, was there a time when you did not have a steady place to sleep or slept in ashelter (including now)?Patient mbpnryn6703/02/2023ostpartum DepressionAnswerDate RecordedPHQ-9 Total Score (max 27)EducationAnswerDate RecordedWhat is the highest level of school you have completed or the highest degree you have received?Associate degree: occupational, technical, or vocational program 11/06/2021CommentsUnknownSex and Gender InformationValueDate RecordedSex Assigned at EhvljGizzcj77/19/2022 12:30 PM CSTLegal FbqUalchg65/23/2017 12:50 PM CDTGender UxqkypyjKhyncv57/19/2022 12:30 PM CSTSexual OrientationStraight 11/06/2021 12:30 PM CSTdocumented as of this encounter Plan of Treatment NameTypePriorityAssociated DiagnosesOrder ScheduleFamily Medicine office visit (clinic)Outpatient ReferralRoutineExpected: 10/03/2025, Expires: 03/08/2026 documented as of this encounter Visit Diagnoses Not on filedocumented in this encounter Additional Health Concerns AssessmentNoted TimePHQ-9 Depression Total Score: 9:11 AM CDT documented as of this encounter Care Teams Team MemberRelationshipSpecialtyStart DateEnd Date Valerie Liu APRN, C.N.P. [address] [place] [address] PCP - General03/04documented as of this encounter
[2025-10-10 09:47] VITALS: BP 124/87; PULSE 70; RESP 16; TEMP 36.8; O2SAT 95; BMI 35.2
--- NOTE | 2025-10-10 10:05 | CRLHL7_ITS ---
For Patients: As a result of the 21st Century Cures Act, medical imaging exams and procedure reports are released immediately into your electronic medical record. You may view this report before your referring provider. If you have questions, please contact your health care provider. INDICATION: Lower abdominal and lower back pain. History of appendectomy COMPARISON: None TECHNIQUE: CT examination of the abdomen and pelvis was performed following the uneventful intravenous administration of 110 cc of Isovue 370. Thin section axial images were obtained from the lung bases through the pubic symphysis. Oral contrast was not administered. Please note that all CT scans at this facility use dose modulation, iterative reconstruction, and/or weight-based dosing when appropriate to reduce radiation dose to as low as reasonably achievable. FINDINGS: LUNG BASES: Basilar opacities probably due to atelectasis. The heart size is normal at the lung bases. LIVER/BILIARY SYSTEM:The liver is normal in size and configuration. There is no focal mass and there is no intra- or extra hepatic biliary ductal dilatation.The gall bladder appears normal. ADRENALS: Normal KIDNEYS, URETERS and BLADDER:The kidneys appear normal. No visible mass, calculus or hydronephrosis. The ureters and bladder as visualized appear normal. SPLEEN:Normal appearance. PANCREAS: Appears normal. RETROPERITONEUM and MESENTERY: There is no mass, adenopathy or aortic aneurysm. GASTROINTESTINAL SYSTEM: There is no evidence of diverticulitis, colitis, mechanical obstruction, or appendicitis. The small bowel as visualized appears normal. PELVIS: Uterus appears normal. An IUD appears to be properly located. Left ovary/left adnexa appears normal. Rounded well-circumscribed right ovarian lesion probably a cyst measuring 3.4 centimeters. This might be the source of the patient`s pain. Consider sonography with Doppler for further evaluation.. OSSEOUS STRUCTURES and ABDOMINAL WALL: There is an age-appropriate appearance of the osseous structures.No significant abdominal wall defect. OTHER: No free fluid or free air. IMPRESSION: Rounded well-circumscribed right ovarian lesion probably an ovarian cyst measuring 3.4 centimeters. This might be the source of the patient`s pain. Recommend sonography with Doppler for further evaluation. Other nonacute appearing findings as discussed above. Please review the comments. Please note that all CT scans at this facility use dose modulation, iterative reconstruction, and/or weight-based dosing when appropriate to reduce radiation dose to as low as reasonably achievable. Dictated by Marcio Sebastian MD @ 10/10/2025 10:59:25 AM (Electronically Signed)
--- NOTE | 2025-10-10 10:12 | ED.GENADULT ---
HPI - General Adult General Date Seen: 10/10/25 Chief complaint: Urogenital Problems, Female Stated complaint: Kidney pain, trouble urinating and vomiting Time Seen by Provider: 10/10/25 09:49 Source: patient Mode of arrival: ambulatory Limitations: no limitations History of Present Illness HPI narrative: Patient is a 35-year-old female who is a disabled presenting to the emergency department for bilateral low back pain, difficulty urinating, nausea, abdominal pain. States for the past 5 days he has been having bilateral low back pain she states radiates down the back of her legs. She has been able to ambulate but she states is extremely uncomfortable. States she has more pain with sitting. She also has lower abdominal pain bilaterally that she states radiates to her bladder. She has been having difficulties with urination and is concerned she has UTI so has been using [id number] azo. She states this is not been helping. Is 8 she has been having bladder spasms and that is when the pain is the worst. States the pain does come she becomes diaphoretic and feels like she is going to pass out. Has not had any burning urination though. She states he has had somewhat similar pain in the past and was told it was not kidney stones or UTI at that time. Denies any recent heavy lifting or back injuries. Denies fevers but has been having diaphoresis at night. Denies chest pain, shortness of breath, headache, weakness, numbness. No other concerns noted at this time. Related Data Home Medications ?Medication ?Instructions ?Recorded ?Confirmed gabapentin 400 mg tablet 400 mg PO TID 01/04/25 10/10/25 Zofran 4 mg PO 4XD PRN 10/10/25 10/10/25 duloxetine 60 mg capsule,delayed 60 mg PO DAILY 10/10/25 10/10/25 release hydroxizine 25 mg PO HS 10/10/25 10/10/25 Allergies Allergy/AdvReac Type Severity Reaction Status Date / Time metoclopramide (From Reglan) Allergy Intermediate Verified 10/10/25 11:22 metoprolol Allergy Intermediate low BP Verified 10/10/25 11:22 Review of Systems Status of ROS: Reports: 10 or more systems reviewed and unremarkable except as noted in History and below PFSH PFSH Social History Smoking Status: Never smoker How often do you have a drink containing alcohol: monthly or less AUDIT-C Alcohol total score: 1 Non-prescribed substance use: denies use Exam Narrative: Exam Narrative: Const: Well-nourished, Well-developed, in moderate distress Eyes: PERRL, no conjunctival injection, and symmetrical lids HENT: Atraumatic external nose and ears. Moist mucous membranes. Neck: Symmetric, trachea midline, No thyromegaly. CVS: RRR, No murmurs or gallops. Peripheral pulses 2+ and equal in all extremities RESP: Unlabored respiratory effort. Clear to auscultation bilaterally. GI: Diffuse lower abdominal tenderness, Nondistended, No rebound or guarding. MSK:Extremities w/o deformity, Normal Active ROM, negative straight leg and contralateral straight leg test. Skin: Warm, Dry. No rashes or lesions. Neuro: Normal Muscle tone, No focal neurological deficits. Psych: Awake, Alert, & Oriented x3. Appropriate mood and affect. Const: Vital Signs, click to edit/add: Vital Signs - 24 hr 10/10/25 09:47 10/10/25 10:30 10/10/25 12:20 Temperature 98.2 F 98.2 F Pulse Rate [Pulse Oximeter] 70 73 Respiratory Rate 16 18 Blood Pressure [Ri ght Upper Arm] 124/87 122/98 H Pulse Oximetry 95 95 97 Oxygen Delivery Me thod Room Air Room Air Course Vital Signs Vital signs: Initial Vital Signs Temperature 98.2 F 10/10/25 09:47 Temperature Source Temporal Artery Scan 10/10/25 09:47 Pulse Rate 70 10/10/25 09:47 Respiratory Rate 16 10/10/25 09:47 Blood Pressure 124/87 10/10/25 09:47 Blood Pressure Mean 99 10/10/25 09:47 Pulse Oximetry 95 10/10/25 09:47 Oxygen Delivery Method Room Air 10/10/25 09:47 Vital Signs Temperature 98.2 F 10/10/25 09:47 Pulse Rate 70 10/10/25 09:47 Respiratory Rate 16 10/10/25 09:47 Blood Pressure 124/87 10/10/25 09:47 Pulse Oximetry 95 10/10/25 09:47 Oxygen Delivery Method Room Air 10/10/25 09:47 Temperature 98.2 F 10/10/25 12:20 Pulse Rate 73 10/10/25 12:20 Respiratory Rate 18 10/10/25 12:20 Blood Pressure 122/98 H 10/10/25 12:20 Pulse Oximetry 97 10/10/25 12:20 Oxygen Delivery Method Room Air 10/10/25 12:20 Medications Administered Medications: Discontinued Medications Generic Name Dose Route Start Last Admin Trade Name Toña PRN Reason Stop Dose Admin Lactated Ringer's 1,000 mls @ 1,000 mls/hr 10/10/25 10:05 10/10/25 11:31 Lactated Ringers 1000 Ml IV 10/10/25 11:04 Infused .Q1H ONE Infusion Morphine Sulfate 4 mg 10/10/25 10:05 10/10/25 10:42 Morphine 4 Mg/Ml Inj IVP 10/10/25 10:06 4 mg ONCE ONE Administration Ondansetron HCl 4 mg 10/10/25 10:05 10/10/25 10:27 Ondansetron 2 Mg/Ml Inj IVP 10/10/25 10:06 4 mg ONCE ONE Administration Medical Decision Making [facility] [place] Narrative Medical decision making narrative: Patient is a 35-year-old female presenting for low back pain and abdominal pain. Abdominal pain is mostly in the bladder region. Differential includes nephrolithiasis, bladder spasms, UTIs. Her back pain could be related to infection but also seems musculoskeletal in nature considering radiates down her legs. She could have a virus 2. Order CT scan of the abdomen pelvis a better evaluation. Will also order CBC, viral swabs, urinalysis, CMP, lipase. Given Zofran for nausea and morphine for pain. Given a L of fluids as she states she feels dehydrated. Patient's lab work returned showing no acute concerning abnormalities. She does have a small amount of blood in her urine although no red blood cells. She possibly could have passed a kidney stone. CT reviewed by myself and the radiologist shows a right ovarian says the 3.4 cm. Recommend ultrasound with Doppler for further evaluation. No other abnormality seen. Patient is concerned about difficulty urinating but her bladder appears empty. Did a bladder scan and it was he is less than 100. Viral swabs are negative. Ultrasound interpreted by the radiologist shows a right simple ovarian cyst measuring 4.5 cm. Cannot definitively visualize the flow but there is no secondary signs of torsion. I spoke to Dr. Velez of [facility] as she states that she has not believe this is a torsion although cannot definitively see the arterial blood flow. Does believe there is some faint venous blood flow. Patient is currently pain-free. I spoke to her about the episode pain she had this morning she states that was the absolute worst pain she has had related to the symptoms. She has the has some much more mild pain when she is trying to urinate but is unable to. Based on her description I do not believe this is an ovarian torsion but I did speak to her about how I was unable to rule out definitively with the ultrasound. We had a long conversation on doing a repeat ultrasound. I explained to her the risks ovarian torsion. At this time she does not want to do another ultrasound feels comfortable going home without a repeat ultrasound. This is reasonable. I did inform her she needs to have close follow-up with her primary care provider and/or dairy helper. She states she understands. I also gave her strict return precautions. Lab Data Labs: Lab Results 10/10/25 10/10/25 10/10/25 Range/Units 10:05 10:20 11:18 WBC 4.69 (4.50-11.00) K/uL RBC 4.68 (4.00-5.20) m/uL Hgb 14.3 (12.0-16.0) gm/dL Hct 40.2 (33.0-51.0) % MCV 86 (80-100) fL MCH 31 (26-34) pg MCHC 36 (32-36) gm/dL RDW Coeff of Danyel 11.0 L (11.5-15.5) % Plt Count 223 (140-440) K/uL Neut % (Auto) 57.2 (42.0-72.0) % Lymph % (Auto) 32.8 (20-44) % [place] % (Auto) 6.4 (0.0-11.0) % Eos % (Auto) 2.8 (0.0-7.0) % Baso % (Auto) 0.6 (0.0-3.0) % Neut # (Auto) 2.68 (1.7-7.0) K/uL Lymph # (Auto) 1.54 (0.90-2.90) K/uL [place] # (Auto) 0.30 (0.00-0.90) K/UL Eos # (Auto) 0.13 (0.00-0.50) K/uL Baso # (Auto) 0.03 (0.00-0.30) K/uL Abs Immat Gran (auto) 0.01 (0.00-0.30) K/uL Imm/Tot Granulo (auto) 0.2 % Sodium 136 (135-149) mmol/L Potassium 4.0 (3.6-5.1) mmol/L Chloride 104 (96-114) mmol/L Carbon Dioxide 26 (20-32) mmol/L Anion Gap 6 L (7-15) mEq/L BUN 10 (5-24) mg/dL Creatinine 0.7 (0.5-1.5) mg/dL Estimated Creat Clear 107.01 Estimated GFR 114 ml/min Glucose 105 (60-115) mg/dL Calcium 8.8 (8.4-10.6) mg/dL Total Bilirubin 1.0 (0.1-1.5) mg/dL AST 20 (12-35) U/L ALT 17 (4-35) U/L Alkaline Phosphatase 90 (40-150) U/L Total Protein 7.7 (6.0-8.3) g/dL Albumin 4.3 (3.3-5.0) g/dL Lipase 29 (23-300) U/L Urine Color Yellow (Yellow) Urine Appearance Clear (Clear) Urine pH 7.0 (5.0-8.5) Ur Specific [place] 1.010 (1.000-1.030) Urine Protein Negative (Negative) Urine Glucose (UA) Negative (Negative) Urine Ketones Negative (Negative) Urine Blood 2+ A (Negative) Urine Nitrite Negative (Negative) Urine Bilirubin Negative (Negative) Urine Urobilinogen 1.0 (0.2-1.0) Ur Leukocyte Esterase Negative (Negative) Urine RBC 0-2 (0-2) Urine WBC 0-2 (0-5) Ur Squamous Epith Cells Few (None-Few) Urine Bacteria None (None) Urine HCG, Qual Negative (Negative) SARS-CoV-2 (PCR) Negative SARS-CoV-2 (Negative) Influenza Type A (PCR) Negative PCR FLU A (Negative) Influenza Type B (PCR) Negative PCR FLU B (Negative) RSV (PCR) Negative PCR RSV (Negative) Imaging Data CT scan abdomen and pelvis: Attestation: I have reviewed the pertinent imaging results. Radiologist's impression: Rounded well-circumscribed right ovarian lesion probably an ovarian cyst measuring 3.4 centimeters. This might be the source of the patient`s pain. Recommend sonography with Doppler for further evaluation. Other nonacute appearing findings as discussed above. Please review the comments. Please note that all CT scans at this facility use dose modulation, iterative reconstruction, and/or weight-based dosing when appropriate to reduce radiation dose to as low as reasonably achievable. Dictated by Marcio Sebastian MD @ 10/10/2025 10:59:25 AM Transvaginal ultrasound: Attestation: I have reviewed the pertinent imaging results. Radiologist's impression: Simple right ovarian cyst measuring 4.5 cm. Flow in the right ovary is not well assessed, possibly secondary to positioning. No secondary signs to suggest torsion The left ovary is not visualized IUD in place in appropriate position Dictated by Leann Velez MD @ 10/10/2025 12:26:12 PM Discharge Plan Discharge Clinical Impression: Ovarian cyst Qualifiers: Laterality: right Qualified Code(s): N83.201 - Unspecified ovarian cyst, right side Patient Disposition: Home, Self-Care Condition: Stable Instructions: Ovarian Cyst (ED) Additional Instructions: I do believe your pain is all related to your ovarian cyst. As we discussed I cannot definitively say do not have and intermittent ovarian torsion and it is very important to have close follow-up with your PCP or dairy helper. Is also very important your return to the ED immediately if you develop worsening pain again. At this time there is no signs of a UTI. Return to emergency department also for any other new or worsening symptoms. Prescriptions: No Action duloxetine 60 mg capsule,delayed release(DR/EC) 60 mg PO DAILY hydroxizine 25 mg PO HS Zofran 4 mg PO 4XD PRN gabapentin 400 mg tablet 400 mg PO TID Follow Up/Referrals: Provider,Not a Local [Primary Care Provider, Family Practice] Stand Alone Forms: [facility] Info Instructions
[2025-10-10 10:27] LABS: Hematocrit* 40.2 % (33.0-51.0); Hemoglobin* 14.3 gm/dL (12.0-16.0); Immature Granulocytes Abs Auto 0.01 K/uL (0.00-0.30); Immature Granulocytes Pct Auto 0.2 %; Lymphocytes Absolute Auto 1.54 K/uL (0.90-2.90); Mean Corpuscular HGB Conc 36 gm/dL (32-36); Mean Corpuscular Hemoglobin 31 pg (26-34); Mean Corpuscular Volume 86 fL (80-100); RDW Coefficient of Variation % 11.0 % (11.5-15.5); Red Blood Count* 4.68 m/uL (4.00-5.20); White Blood Count* 4.69 K/uL (4.50-11.00)
[2025-10-10] MEDS: ONDANSETRON 2 MG/ML inj 4 MG IVP (10:27)
[2025-10-10 10:30] VITALS: O2SAT 95
[2025-10-10 10:32] LABS: Slide Review Reflex No
[2025-10-10] MEDS: MORPHINE 4 MG/ML INJ IVP (10:42)
[2025-10-10] MEDS: LACTATED RINGERS 1000 ML 1,000 ML IV (10:43)
[2025-10-10 10:44] LABS: Albumin* 4.3 g/dL (3.3-5.0); Chloride* 104 mmol/L (96-114); Potassium* 4.0 mmol/L (3.6-5.1); Sodium* 136 mmol/L (135-149)
[2025-10-10 10:46] LABS: Blood Urea Nitrogen* 10 mg/dL (5-24); Creatinine* 0.7 mg/dL (0.5-1.5); Est. Creatinine Clearance* 107.01; Estimated Glomerular Filt Rate 114 ml/min
[2025-10-10 10:47] LABS: Alanine Aminotransferase* 17 U/L (4-35); Alkaline Phosphatase* 90 U/L (40-150); Anion Gap 6 mEq/L (7-15); Aspartate Amino Transferase* 20 U/L (12-35); Bilirubin Total* 1.0 mg/dL (0.1-1.5); Calcium* 8.8 mg/dL (8.4-10.6); Carbon Dioxide* 26 mmol/L (20-32); Glucose* 105 mg/dL (60-115); Total Protein* 7.7 g/dL (6.0-8.3)
[2025-10-10 10:59] LABS: PCR FLU A Negative PCR FLU A (Negative); PCR FLU B Negative PCR FLU B (Negative); PCR RSV Negative PCR RSV (Negative); SARS PCR* Negative SARS-CoV-2 (Negative)
--- NOTE | 2025-10-10 11:18 | CRLHL7_ITS ---
For Patients: As a result of the Century Cures Act, medical imaging exams and procedure reports are released immediately into your electronic medical record. You may view this report before your referring provider. If you have questions, please contact your health care provider. INDICATION: Pelvic pain, ovarian cyst TECHNIQUE: Ultrasound pelvis transvaginal for better assessment or to better visualize the endometrium. Real-time sonographic images with spectral and color Doppler imaging of right ovary was obtained. COMPARISON: CT abdomen pelvis 10/10/2025 FINDINGS: Uterus: 9.4 x 4.2 x 5.2 cm. Normal echotexture of the myometrium. No masses. Endometrium: Transvaginal imaging was performed to better evaluate the endometrium. The endometrium is not well seen although may measure 3 mm in thickness. No sign of endometrial mass or fluid. IUD in place in appropriate position Right ovary measuring 5.4 x 3.5 x 3.7 cm. The left ovary is not visualized. No right ovarian or adnexal masses. Flow in the right ovary is not well assessed, possibly secondary to positioning Cul-de-sac: No significant free fluid. IMPRESSION: Simple right ovarian cyst measuring 4.5 cm. Flow in the right ovary is not well assessed, possibly secondary to positioning. No secondary signs to suggest torsion The left ovary is not visualized IUD in place in appropriate position Dictated by Leann Velez MD @ 10/10/2025 12:26:12 PM (Electronically Signed)
[2025-10-10 11:41] LABS: Appearance Urine Clear (Clear)
[2025-10-10 12:20] VITALS: BP 122/98; PULSE 73; RESP 18; TEMP 36.8; O2SAT 97
[2025-10-10 12:59] LABS: Ur HCG Qualitative* Negative (Negative)
== END 2025-10-10 14:24 | disposition home or self-care (01) ==
PROVIDERS: Emergency Provider Student in an Organized Health Care Education/Training Program
DX: N83.291 Other ovarian cyst, right side (principal); R31.9 Hematuria, unspecified; Z97.5 Presence of (intrauterine) contraceptive device
CPT/HCPCS: 36415; 51798; 74177; 76830; 80053; 81001; 81025; 83690; 85025; 87631; 93976; 94761; 96361; 96374; 96375; 99284; 99285; J2270; J2405; J7120; Q9967